=== PATIENT | female | born 1975 | race Caucasian/White ===

== ENCOUNTER 2016-09-26 22:13 | Emergency (ER) | payer BC ==
[~2016-09-26] VITALS: Ht 165.1 cm; Wt 117.9 kg
[~2016-09-26 22:13] MED LIST: OMEP20CA12 PO; ONDA-42 SL
[2016-09-26] MEDS ORDERED: NS IV 1000 ML 1,000 ML IV SCH (22:45)
[2016-09-26] MEDS ORDERED: PROCHLORPERAZINE 10 MG/2ML INJ (COMPAZINE) IV ONE (22:45)
[2016-09-26] MEDS ORDERED: KETOROLAC 30 MG/ML VIAL IVP ONE (22:45)
[2016-09-26] MEDS ORDERED: diphenhydrAMINE 50 MG/ML INJ (BENADRYL) IVP ONE (22:45)
--- NOTE | 2016-09-26 22:48 | ED Headache ---
General Chief Complaint: Head/Cervical Problems Stated Complaint: MIGRANE, N/V, DIZZINESS Source: patient Exam Limitations: no limitations (SUJIT LARIOS APRN) History of Present Illness Time seen by provider: 22:45 Initial Comments To ER with a right frontal and temporal headache that began slowly at about 1 p.m. this afternoon and progressively got worse throughout the day. The headache is worsened by exposure to light or loud noises. No history of migraines. No fevers chills or head trauma. She has associated nausea and vomiting and she's vomited about 4 times today. She is also had diarrhea about 4 times today which is watery and without blood or mucus. She denies any recent travel history or eating new or unusual foods. She has recently been alternating between Lyrica and gabapentin to find the best medication to control her fibromyalgia. She recently stopped the Lyrica due to the swelling that it caused, still has some swelling in her hands & feet. Primary care is [facility] Timing/Duration: waxing and waning Severity/Quality: moderate Location: frontal, temporal Prior Headaches/Recent Trauma: no recent headache/trauma Modifying Factors: worse with exposure to light, worse with medication, worse with movement Associated Symptoms: No confusion, No fatigue, No facial pain, No fever/chills , nausea/vomiting, No seizures, No sinus infection, No stiff neck, No vision changes (SUJIT LARIOS APRN) Allergies and Home Medications Allergies Coded Allergies: Penicillins (Unverified Allergy, Unknown, 04/11/14) clindamycin (Unverified Allergy, Unknown, 04/11/14) sulfamethoxazole (Unverified Allergy, Unknown, 09/26/16) tramadol (Unverified Allergy, Unknown, 09/26/16) trimethoprim (Unverified Allergy, Unknown, 09/26/16) Home Medications Duloxetine HCl 60 Mg Capsule.dr, 60 MG PO DAILY, (Reported) Hydrocodone/Ibuprofen 1 Each Tablet, 1 TAB PO PRN, #84 (Reported) Meloxicam 7.5 Mg Tablet, 7.5 MG PO BID, #60 (Reported) Prednisone 20 Mg Tab, PO UD, #18 (Reported) Pregabalin 75 Mg Capsule, 75 MG PO BID, (Reported) Constitutional: see HPI, chills, No fever Eyes: See HPI, Photophobia Ears, Nose, Mouth, Throat: no symptoms reported Respiratory: no symptoms reported Cardiovascular: no symptoms reported Genitourinary: no symptoms reported Musculoskeletal: no symptoms reported Skin: no symptoms reported Psychiatric/Neurological: No Symptoms Reported (SUJIT LARIOS APRN) Past Nslbhxs-Kjdbld-Xtsimr Hx Patient Social History Alcohol Use: Denies Use Recreational Drug Use: No Smoking Status: Never a Smoker Recent Foreign Travel: No Contact w/Someone Who Travel: No Recent Hopitalizations: No (SUJIT LARIOS APRN) Seasonal Allergies Seasonal Allergies: No (SUJIT LARIOS APRN) Surgeries HX Surgeries: Yes (GANGLION CYST REMOVAL IN HAND) Surgeries: Section (SUJIT LARIOS APRN) Respiratory Hx Respiratory Disorders: No (SUJIT LARIOS APRN) Cardiovascular Hx Cardiac Disorders: No (SUJIT LARIOS APRN) Neurological Hx Neurological Disorders: No (SUJIT LARIOS APRN) Reproductive System Hx Reproductive Disorders: No (SUJIT LARIOS APRN) Genitourinary Hx Genitourinary Disorders: No (SUJIT LARIOS APRN) Gastrointestinal Hx Gastrointestinal Disorders: No (SUJIT LARIOS APRN) Musculoskeletal Hx Musculoskeletal Disorders: Yes Musculoskeletal Disorders: Fibromyalgia (SUJIT LARIOS APRN) Endocrine Hx Endocrine Disorders: No (SUJIT LARIOS APRN) HEENT HX ENT Disorders: No (SUJIT LARIOS APRN) Cancer Hx Cancer: No (SUJIT LARIOS APRN) Psychosocial Hx Psychiatric Problems: No (SUJIT LARIOS APRN) Integumentary HX Skin/Integumentary Disorder: No (SUJIT LARIOS APRN) Blood Transfusions Hx Blood Disorders: No Adverse Reaction to a Blood Tr: No (SUJIT LARIOS APRN) Physical Exam Vital Signs Vital Sign - Last 12Hours 09/26/16 22:43 Temp 98.7 Pulse 68 Resp 18 B/P (MAP) 124/74 Pulse Ox 96 O2 Delivery Room Air (JASVIR AMADOR MD) Vital Signs Capillary Refill : (SUJIT LARIOS APRN) General Appearance: WD/WN, no apparent distress HEENT: PERRL/EOMI, normal ENT inspection, TMs normal Neck: non-tender, full range of motion Cardiovascular: regular rate, rhythm, no murmur Respiratory: normal breath sounds, no respiratory distress, no accessory muscle use Gastrointestinal: normal bowel sounds, non tender, soft Extremities: normal range of motion, non-tender Psychiatric: alert, oriented x 3 Crainal Nerves: normal hearing, normal speech, PERRL Skin: normal color, warm/dry (SUJTI LARIOS APRN) Motor/Sensory: no motor deficit, no sensory deficit (JASVIR AMADOR MD) Progress/Results/Core Measures Results/Orders Lab Results Laboratory Tests Test 09/26/16 22:57 Range/Units White Blood Count 10.6 4.3-11.0 10^3/uL Red Blood Count 4.00 L 4.35-5.85 10^6/uL Hemoglobin 13.1 11.5-16.0 G/DL Hematocrit 38 35-52 % Mean Corpuscular Volume 94 80-99 FL Mean Corpuscular Hemoglobin 33 25-34 PG Mean Corpuscular Hemoglobin Concent 35 32-36 G/DL Red Cell Distribution Width 12.3 10.0-14.5 % Platelet Count 344 130-400 10^3/uL Mean Platelet Volume 8.8 7.4-10.4 FL Neutrophils (%) (Auto) 86 H 42-75 % Lymphocytes (%) (Auto) 10 L 12-44 % Monocytes (%) (Auto) 3 0-12 % Eosinophils (%) (Auto) 0 0-10 % Basophils (%) (Auto) 0 0-10 % Neutrophils # (Auto) 9.2 H 1.8-7.8 X 10^3 Lymphocytes # (Auto) 1.1 1.0-4.0 X 10^3 Monocytes # (Auto) 0.4 0.0-1.0 X 10^3 Eosinophils # (Auto) 0.0 0.0-0.3 10^3/uL Basophils # (Auto) 0.0 0.0-0.1 10^3/uL Neutrophils % (Manual) 81 % Lymphocytes % (Manual) 9 % Monocytes % (Manual) 9 % Eosinophils % (Manual) 1 % Basophils % (Manual) 0 % Band Neutrophils 0 % Blood Morphology Comment NORMAL Urine Color YELLOW Urine Clarity SLIGHTLY CLOUDY Urine pH 8 5-9 Urine Specific [place] 1.010 L 1.016-1.022 Urine Protein NEGATIVE NEGATIVE Urine Glucose (UA) NEGATIVE NEGATIVE Urine Ketones NEGATIVE NEGATIVE Urine Nitrite NEGATIVE NEGATIVE Urine Bilirubin NEGATIVE NEGATIVE Urine Urobilinogen NORMAL NORMAL MG/DL Urine Leukocyte Esterase 3+ H NEGATIVE Urine RBC (Auto) NEGATIVE NEGATIVE Urine RBC NONE /HPF Urine WBC 0-2 /HPF Urine Squamous Epithelial Cells 25-50 H /HPF Urine Crystals PRESENT H /LPF Urine Amorphous Sediment LARGE AAKASH PHOSPHATE H /LPF Urine Bacteria TRACE /HPF Urine Casts NONE /LPF Urine Mucus NEGATIVE /LPF Urine Culture Indicated NO Sodium Level 140 135-145 MMOL/L Potassium Level 4.1 3.6-5.0 MMOL/L Chloride Level 104 98-107 MMOL/L Carbon Dioxide Level 25 21-32 MMOL/L Anion Gap 11 5-14 MMOL/L Blood Urea Nitrogen 19 H 7-18 MG/DL Creatinine 0.85 0.60-1.30 MG/DL Estimat Glomerular Filtration Rate > 60 BUN/Creatinine Ratio 22 Glucose Level 114 H 70-105 MG/DL Calcium Level 10.1 8.5-10.1 MG/DL Total Bilirubin 0.4 0.1-1.0 MG/DL Aspartate Amino Transf (AST/SGOT) 29 5-34 U/L Alanine Aminotransferase (ALT/SGPT) 31 0-55 U/L Alkaline Phosphatase 65 40-136 U/L Total Protein 7.2 6.4-8.2 G/DL Albumin 4.3 3.2-4.5 G/DL (JASVIR AMADOR MD) Medications Given in ED Current Medications Medications Dose Ordered Sig/Ana María Route Start Time Stop Time Status Last Admin Dose Admin Diphenhydramine HCl 25 mg ONCE ONCE IVP 09/26/16 22:45 09/26/16 22:46 DC 09/26/16 23:00 25 MG Ketorolac Tromethamine 30 mg ONCE ONCE IVP 09/26/16 22:45 09/26/16 22:46 DC 09/26/16 22:59 30 MG Prochlorperazine Edisylate 5 mg ONCE ONCE IV 09/26/16 22:45 09/26/16 22:46 DC 09/26/16 23:02 5 MG (JASVIR AMADOR MD) Vital Signs/I&O Vital Sign - Last 12Hours 09/26/16 22:43 Temp 98.7 Pulse 68 Resp 18 B/P (MAP) 124/74 Pulse Ox 96 O2 Delivery Room Air (JASVIR AMADOR MD) Progress Note : Progress Note 2300: The same. The patient pending labs and patient improvement. 0100: Patient much improved and states that she feels like she can go home and sleep without any problems. She will follow-up with her DrCornelia for further evaluation as needed. Patient does deny any recent illnesses or fevers as well as any recent injuries. Does occasionally have headaches. Discussed options of CT scan and patient declined at this point. Discharged home with return precautions. Patient verbalize understanding instructions and agreement with plan. (JASVIR AMADOR MD) Departure Impression Impression: Primary Impression: Migraine Qualified Codes: G43.909 - Migraine, unspecified, not intractable, without status migrainosus Disposition: HOME, SELF-CARE Condition: Improved Departure-Patient Inst. Decision time for Depature: 01:08 (JASVIR AMADOR MD) Referrals: [facility] (PCP[facility]Family) Primary Care Physician Patient Instructions: Migraine Headache (DC) Add. Discharge Instructions: All discharge instructions reviewed with patient and/or family. Voiced understanding. You may take ibuprofen or Tylenol as needed for pain. Drink plenty of fluids. Follow-up with your doctor on Thursday for recheck and further evaluation. Return for worse pain, fever, vomiting, weakness, breathing problems, vision or balance problems or other concerns as needed. SUJIT LARIOS APRN Sep 26, 2016 22:48 JASVIR AMADOR MD Sep 27, 2016 01:06
[2016-09-26] MEDS ORDERED: PREG75CA PO (22:49)
[2016-09-26] MEDS ORDERED: HYDR-87 PO (22:49)
[2016-09-26] MEDS ORDERED: PRD20T PO (22:49)
[2016-09-26] MEDS ORDERED: DULO60CA6 PO (22:49)
[2016-09-26] MEDS ORDERED: MELO7.5T46 PO (22:49)
[2016-09-26 23:10] LABS: BASOPHILS % (AUTO) 0 % (0-10); EOSINOPHILS % (AUTO) 0 % (0-10); LYMPHOCYTES # (AUTO) 1.1 X 10^3 (1.0-4.0); LYMPHOCYTES % (AUTO) 10 % (12-44); MEAN CORPUSCULAR HEMOGLOBIN 33 PG (25-34); MEAN CORPUSCULAR HGB CONC 35 G/DL (32-36); MEAN CORPUSCULAR VOLUME 94 FL (80-99); MEAN PLATELET VOLUME 8.8 FL (7.4-10.4); MONOCYTES # (AUTO) 0.4 X 10^3 (0.0-1.0); MONOCYTES % (AUTO) 3 % (0-12); NEUTROPHILS # (AUTO) 9.2 X 10^3 (1.8-7.8); NEUTROPHILS % (AUTO) 86 % (42-75); PLATELET COUNT 344 10^3/uL (130-400); RED CELL DISTRIBUTION WIDTH 12.3 % (10.0-14.5); WHITE BLOOD COUNT 10.6 10^3/uL (4.3-11.0)
[2016-09-26 23:11] LABS: BILIRUBIN,URINE NEGATIVE (NEGATIVE); KETONES,URINE NEGATIVE (NEGATIVE); LEUKOCYTE ESTERASE ,URINE 3+ (NEGATIVE); NITRITE,URINE NEGATIVE (NEGATIVE); PH,URINE 8 (5-9); PROTEIN,URINE NEGATIVE (NEGATIVE); UROBILINOGEN,URINE NORMAL (NORMAL)
[2016-09-26 23:24] LABS: SQUAMOUS EPITHELIAL CELL,UR 25-50 /HPF; WBC,URINE 0-2 /HPF
[2016-09-26 23:27] LABS: BAND NEUTROPHILS 0 %; BASOPHILS % (MANUAL) 0 %; EOSINOPHILS % (MANUAL) 1 %; LYMPHOCYTES % (MANUAL) 9 %; NEUTROPHILS % (MANUAL) 81 %
[2016-09-26 23:33] LABS: ALANINE AMINOTRANSFERASE 31 U/L (0-55); ALBUMIN 4.3 G/DL (3.2-4.5); ANION GAP 11 MMOL/L (5-14); ASPARTATE AMINO TRANSFERASE 29 U/L (5-34); BILIRUBIN,TOTAL 0.4 MG/DL (0.1-1.0); BLOOD UREA NITROGEN 19 MG/DL (7-18); BUN/CREATININE RATIO 22; CALCIUM 10.1 MG/DL (8.5-10.1); CARBON DIOXIDE 25 MMOL/L (21-32); CHLORIDE 104 MMOL/L (98-107); CREATININE SERUM 0.85 MG/DL (0.60-1.30); GFR ESTIMATED > 60; GLUCOSE 114 MG/DL (70-105); POTASSIUM 4.1 MMOL/L (3.6-5.0); SODIUM 140 MMOL/L (135-145); TOTAL PROTEIN 7.2 G/DL (6.4-8.2)
[2016-09-27 01:21] VITALS: BP 122/72
== END 2016-09-27 01:21 | disposition home or self-care (01) ==
LOC: EDUNIT# 22:13 → ER 22:16
DX: G43.909 Migraine, unspecified, not intractable, without status migrainosus (principal); M79.7 Fibromyalgia; Z79.899 Other long term (current) drug therapy; R11.2 Nausea with vomiting, unspecified; R19.7 Diarrhea, unspecified
CPT/HCPCS: 36415; 80053; 81000; 84703; 85007; 85027; 96361; 96374; 96375

== ENCOUNTER 2017-07-03 08:12 | Emergency (ER) | payer SELFPAY ==
[~2017-07-03] VITALS: Ht 165.1 cm; Wt 127.0 kg
[~2017-07-03 08:12] MED LIST changes: +DULO60CA6 PO; +HYDR-87 PO; +MELO7.5T46 PO; +PRD20T PO; +PREG75CA PO
--- OUTSIDE RECORDS SUMMARY | 2017-07-03 08:18 | XMS REPORT ---
Author Author VAN MARY Organization [facility] Address [address] [place] [address] Care Team Providers Care Gardener Florist Name Role Phone MARY ARAUJO Unavailable PROBLEMS Type Condition ICD9-CM Code [id number] Code Onset Dates Condition Status SNOMED Code Problem Chronic pain syndrome G89.4 Active 641111421 Problem Insomnia G47.00 Active 244768748 Problem Fibromyalgia M79.7 Active 41137678 Problem Obesity E66.9 Active 287090738 Problem Personal history of alcoholism F10.21 Active 734326545 ALLERGIES Substance Reaction Event Type Date Status Penicillin V Potassium Unknown Drug Allergy Jun, Active Clindamycin Unknown Drug Allergy Jun, Active SOCIAL HISTORY No smoking Hx information available PLAN OF CARE Activity Details Follow Up 3 Months, prn Reason:fibro VITAL SIGNS Height 64 in 2016-07-15 Weight 258.6 lbs 2016-07-15 Temperature 98.3 degrees Fahrenheit 2016-07-15 Heart Rate 74 bpm 2016-07-15 Respiratory Rate 24 2016-07-15 BMI 44.38 kg/m2 2016-07-15 Blood pressure systolic 108 mmHg 2016-07-15 Blood pressure diastolic 78 mmHg 2016-07-15 MEDICATIONS Medication Instructions Dosage Frequency Start Date End Date Duration Status Gabapentin 300 MG Orally Three times a day 1 capsule 8h Jun, 30 day(s) Active Cymbalta 30 MG Orally Once a day 1 capsule 24h Active Mobic 7.5 MG Orally 2 times a day 1 tablet 12h May, Active Ambien 10 mg Orally Once a day 1 tablet at bedtime as needed 24h May, Active Hydrocodone-Ibuprofen 7.5-200 MG Orally 3 times a day 1 tablet as needed 8h Jun, Active RESULTS No Results PROCEDURES Procedure Date Ordered Related Diagnosis Body Site Office Visit, Est Pt., Level 4 Jul 15, 2016 IMMUNIZATIONS No Known Immunizations
--- OUTSIDE RECORDS SUMMARY | 2017-07-03 08:19 | XMS REPORT ---
Author Author MARY ARAUJO Organization [facility] Address [address] [place] [address] Care Team Providers Care Senior Cyber Intelligence Analyst Name Role Phone AUSTEN ARAUJONETTE Unavailable PROBLEMS Type Condition ICD9-CM Code [id number] Code Onset Dates Condition Status SNOMED Code Problem Chronic pain syndrome G89.4 Active 659273640 Problem Insomnia G47.00 Active 429161191 Problem Fibromyalgia M79.7 Active 23451846 Problem Obesity E66.9 Active 494021312 Problem Personal history of alcoholism F10.21 Active 514976404 ALLERGIES Substance Reaction Event Type Date Status Tramadol HCl rash Drug Allergy Aug, Active Penicillin V Potassium Unknown Drug Allergy Aug, Active Clindamycin Unknown Drug Allergy Aug, Active SOCIAL HISTORY Never Assessed PLAN OF CARE Activity Details Follow Up 3 Months Reason:fibromaylgia VITAL SIGNS Height 64 in 2016-09-05 Weight 258.4 lbs 2016-09-05 Temperature 98.1 degrees Fahrenheit 2016-09-05 Heart Rate 76 bpm 2016-09-05 Respiratory Rate 20 2016-09-05 BMI 44.35 kg/m2 2016-09-05 Blood pressure systolic 130 mmHg 2016-09-05 Blood pressure diastolic 90 mmHg 2016-09-05 MEDICATIONS Medication Instructions Dosage Frequency Start Date End Date Duration Status Hydrocodone-Ibuprofen 7.5-200 MG Orally 3 times a day 1 tablet as needed 8h Aug, Active Mobic 7.5 MG Orally 2 times a day 1 TABLET 2 TIMES A DAY ORALLY 12h May, 90 days Active Lyrica 75 MG Orally 2 times a day TAKE ONE CAPSULE BY MOUTH TWICE DAILY 12h 90 days Active Ambien 10 mg Orally Once a day 1 tablet at bedtime as needed 24h May, 90 days Active Duloxetine HCl 60 mg Orally Once a day 1 capsule 24h Aug, 90 days Active RESULTS Name Result Date Reference Range TSH 2016-09-05 TSH 1.870 0.450-4.500 CBC 2016-09-05 WBC 8.1 3.4-10.8 RBC 3.90 3.77-5.28 Hemoglobin 12.8 11.1-15.9 Hematocrit 37.5 34.0-46.6 MCV 96 79-97 MCH 32.8 26.6-33.0 MCHC 34.1 31.5-35.7 RDW 13.5 12.3-15.4 Platelets 337 150-379 Neutrophils 59 Lymphs 29 Monocytes 5 Eos 7 Basos 0 Neutrophils (Absolute) 4.9 1.4-7.0 Lymphs (Absolute) 2.3 0.7-3.1 Monocytes(Absolute) 0.4 0.1-0.9 Eos (Absolute) 0.6 0.0-0.4 Baso (Absolute) 0.0 0.0-0.2 Immature Granulocytes 0 Immature Grans (Abs) 0.0 0.0-0.1 LIPID PANEL 2016-09-05 Cholesterol, Total 208 100-199 Triglycerides 117 0-149 HDL Cholesterol 61 >39 VLDL Cholesterol Jassi 23 5-40 LDL Cholesterol Calc 124 0-99 CMP 2016-09-05 Glucose, Serum 93 65-99 BUN 19 6-20 Creatinine, Serum 0.92 0.57-1.00 eGFR If NonAfricn Am 79 >59 eGFR If Africn Am 91 >59 BUN/Creatinine Ratio 21 8-20 Sodium, Serum 139 134-144 Potassium, Serum 4.2 3.5-5.2 Chloride, Serum 100 96-106 Carbon Dioxide, Total 24 18-29 Calcium, Serum 9.7 8.7-10.2 Protein, Total, Serum 6.8 6.0-8.5 Albumin, Serum 4.2 3.5-5.5 Globulin, Total 2.6 1.5-4.5 A/G Ratio 1.6 1.2-2.2 Bilirubin, Total 0.3 0.0-1.2 Alkaline Phosphatase, S 60 39-117 AST (SGOT) 11 0-40 ALT (SGPT) 13 0-32 PROCEDURES Procedure Date Ordered Result Body Site COMPLETE CBC W/AUTO DIFF WBC September 05, 2016 COMPREHEN METABOLIC PANEL September 05, 2016 ASSAY THYROID STIM HORMONE September 05, 2016 LIPID PANEL September 05, 2016 VENIPUNCT, ROUTINE* September 05, 2016 IMMUNIZATIONS No Known Immunizations MEDICAL (GENERAL) HISTORY Type Description Date Medical History fibromyalgia Medical History insomnia Medical History obesity Surgical History ganglion cyst removal 1996 Surgical History section 2004 Hospitalization History surgeries
--- OUTSIDE RECORDS SUMMARY | 2017-07-03 08:19 | XMS REPORT ---
Author Author MARY ARAUJO Organization [facility] Address [address] [place] [address] Care Team Providers Care Funeral Director And Embalmer Name Role Phone MARY ARAUJO Unavailable PROBLEMS Type Condition ICD9-CM Code [id number] Code Onset Dates Condition Status SNOMED Code Problem Chronic pain syndrome G89.4 Active 312154690 Problem Insomnia G47.00 Active 725029354 Problem Fibromyalgia M79.7 Active 24750446 Problem Obesity E66.9 Active 440955935 Problem Personal history of alcoholism F10.21 Active 076862482 ALLERGIES No Known Allergies SOCIAL HISTORY No smoking Hx information available PLAN OF CARE VITAL SIGNS MEDICATIONS No Known Medications RESULTS Name Result Date Reference Range AMERITOX 2016-06-24 PROCEDURES Procedure Date Ordered Related Diagnosis Body Site No Charge Jun 24, 2016 IMMUNIZATIONS No Known Immunizations
--- OUTSIDE RECORDS SUMMARY | 2017-07-03 08:19 | XMS REPORT ---
Author Author MARY ARAUJO Organization [facility] Address [address] [place] [address] Care Team Providers Care Tile Layer Supervisor Name Role Phone AUSTEN ARAUJONETTE Unavailable PROBLEMS Type Condition ICD9-CM Code QDL85-JH Code Onset Dates Condition Status SNOMED Code Problem Chronic pain syndrome G89.4 Active 666626252 Problem Insomnia G47.00 Active 688164103 Problem Fibromyalgia M79.7 Active 76652294 Problem Obesity E66.9 Active 890489771 Problem Personal history of alcoholism F10.21 Active 221579712 ALLERGIES No Information SOCIAL HISTORY Never Assessed PLAN OF CARE VITAL SIGNS MEDICATIONS Unknown Medications RESULTS Name Result Date Reference Range CBC 2016-07-28 WBC 6.4 3.4-10.8 RBC 3.92 3.77-5.28 Hemoglobin 12.5 11.1-15.9 Hematocrit 36.7 34.0-46.6 MCV 94 79-97 MCH 31.9 26.6-33.0 MCHC 34.1 31.5-35.7 RDW 13.2 12.3-15.4 Platelets 289 150-379 Neutrophils 47 Lymphs 35 Monocytes 6 Eos 12 Basos 0 Neutrophils (Absolute) 3.0 1.4-7.0 Lymphs (Absolute) 2.2 0.7-3.1 Monocytes(Absolute) 0.4 0.1-0.9 Eos (Absolute) 0.8 0.0-0.4 Baso (Absolute) 0.0 0.0-0.2 Immature Granulocytes 0 Immature Grans (Abs) 0.0 0.0-0.1 LIPID PANEL 2016-07-28 Cholesterol, Total 221 100-199 Triglycerides 145 0-149 HDL Cholesterol 51 >39 VLDL Cholesterol Jassi 29 5-40 LDL Cholesterol Calc 141 0-99 CMP 2016-07-28 Glucose, Serum 102 65-99 BUN 16 6-20 Creatinine, Serum 0.83 0.57-1.00 eGFR If NonAfricn Am 90 >59 eGFR If Africn Am 103 >59 BUN/Creatinine Ratio 19 8-20 Sodium, Serum 142 134-144 Potassium, Serum 4.6 3.5-5.2 Chloride, Serum 101 96-106 Carbon Dioxide, Total 24 18-29 Calcium, Serum 9.3 8.7-10.2 Protein, Total, Serum 6.4 6.0-8.5 Albumin, Serum 4.0 3.5-5.5 Globulin, Total 2.4 1.5-4.5 A/G Ratio 1.7 1.1-2.5 Bilirubin, Total 0.3 0.0-1.2 Alkaline Phosphatase, S 65 39-117 AST (SGOT) 15 0-40 ALT (SGPT) 16 0-32 PROCEDURES Procedure Date Ordered Result Body Site COMPLETE CBC W/AUTO DIFF WBC Jul 28, 2016 LIPID PANEL Jul 28, 2016 VENIPUNCT, ROUTINE* Jul 28, 2016 COMPREHEN METABOLIC PANEL Jul 28, 2016 IMMUNIZATIONS No Known Immunizations MEDICAL (GENERAL) HISTORY Type Description Date Medical History fibromyalgia Medical History insomnia Medical History obesity Surgical History ganglion cyst removal 1996 Surgical History section 2004 Hospitalization History surgeries
--- OUTSIDE RECORDS SUMMARY | 2017-07-03 08:19 | XMS REPORT ---
Author Author MARY ARAUJO Organization [facility] Address [address] [place] [address] Care Team Providers Care Forklift Mechanic Name Role Phone MARY ARAUJO Unavailable PROBLEMS Type Condition ICD9-CM Code [id number] Code Onset Dates Condition Status SNOMED Code Problem Chronic pain syndrome G89.4 Active 908862856 Problem Insomnia G47.00 Active 990986987 Problem Fibromyalgia M79.7 Active 10672242 Problem Obesity E66.9 Active 988354559 Problem Personal history of alcoholism F10.21 Active 061495524 ALLERGIES No Information SOCIAL HISTORY Never Assessed PLAN OF CARE VITAL SIGNS MEDICATIONS Medication Instructions Dosage Frequency Start Date End Date Duration Status Hydrocodone-Ibuprofen 7.5-200 MG Orally 3 times a day 1 tablet as needed 8h October, 28 days Active RESULTS No Results PROCEDURES No Known procedures IMMUNIZATIONS No Known Immunizations MEDICAL (GENERAL) HISTORY Type Description Date Medical History fibromyalgia Medical History insomnia Medical History obesity Surgical History ganglion cyst removal 1996 Surgical History section 2004 Hospitalization History surgeries
--- OUTSIDE RECORDS SUMMARY | 2017-07-03 08:19 | XMS REPORT ---
Author Author MARY ARAUJO Organization [facility] Address [address] [place] [address] Care Team Providers Care Architectural Draftsman Name Role Phone MARY ARAUJO Unavailable PROBLEMS Type Condition ICD9-CM Code RZZ33-JP Code Onset Dates Condition Status SNOMED Code Problem Chronic pain syndrome G89.4 Active 479483613 Problem Insomnia G47.00 Active 489041178 Problem Fibromyalgia M79.7 Active 93326949 Problem Obesity E66.9 Active 071187730 Problem Personal history of alcoholism F10.21 Active 936245040 ALLERGIES No Information SOCIAL HISTORY Never Assessed [...]
--- OUTSIDE RECORDS SUMMARY | 2017-07-03 08:20 | XMS REPORT ---
Author Author MARY ARAUJO Organization [facility] Address [address] [place] [address] Care Team Providers Care Ultrasound Tech Name Role Phone MARY ARAUJO Unavailable PROBLEMS Type Condition ICD9-CM Code SCA77-FD Code Onset Dates Condition Status SNOMED Code Problem Chronic pain syndrome G89.4 Active 845501012 Problem Insomnia G47.00 Active 179605854 Problem Fibromyalgia M79.7 Active 65739616 Problem Obesity E66.9 Active 719485539 Problem Personal history of alcoholism F10.21 Active 699875724 ALLERGIES No Information SOCIAL HISTORY Never Assessed PLAN OF CARE VITAL SIGNS MEDICATIONS Medication Instructions Dosage Frequency Start Date End Date Duration Status Duloxetine HCl 60 mg Orally Once a day 1 capsule 24h Aug, 30 day(s) Active Hydrocodone-Ibuprofen 7.5-200 MG Orally 3 times a day 1 tablet as needed 8h Aug, Active RESULTS No Results PROCEDURES No Known procedures IMMUNIZATIONS No Known Immunizations MEDICAL (GENERAL) HISTORY Type Description Date Medical History fibromyalgia Medical History insomnia Medical History obesity Surgical History ganglion cyst removal 1996 Surgical History section 2003 Hospitalization History surgeries
--- OUTSIDE RECORDS SUMMARY | 2017-07-03 08:20 | XMS REPORT ---
Author Author MARY ARAUJO [facility] Address [address] [place] [address] Care Team Providers Care Microbiological Laboratory Technician Name Role Phone MARY ARAUJO Unavailable PROBLEMS Type Condition ICD9-CM Code EGJ62-OH Code Onset Dates Condition Status SNOMED Code Problem Chronic pain syndrome G89.4 Active 619341035 Problem Insomnia G47.00 Active 815315877 Problem Fibromyalgia M79.7 Active 59372746 Problem Obesity E66.9 Active 184014253 Problem Personal history of alcoholism F10.21 Active 169057390 ALLERGIES No Known Allergies SOCIAL HISTORY No smoking Hx information available PLAN OF CARE VITAL SIGNS MEDICATIONS No Known Medications RESULTS No Results PROCEDURES No Known procedures IMMUNIZATIONS No Known Immunizations
--- OUTSIDE RECORDS SUMMARY | 2017-07-03 08:20 | XMS REPORT ---
Author Author MARY ARAUJO [facility] Address [address] [place] [address] Care Team Providers Care Green End Man Name Role Phone MARY ARAUJO Unavailable PROBLEMS Type Condition ICD9-CM Code QDS29-KE Code Onset Dates Condition Status SNOMED Code Problem Chronic pain syndrome G89.4 Active 423751701 Problem Insomnia G47.00 Active 331968858 Problem Fibromyalgia M79.7 Active 93611621 Problem Obesity E66.9 Active 340017658 Problem Personal history of alcoholism F10.21 Active 173863353 ALLERGIES No Information SOCIAL HISTORY Never Assessed PLAN OF CARE VITAL SIGNS MEDICATIONS Unknown Medications RESULTS No Results PROCEDURES No Known procedures IMMUNIZATIONS No Known Immunizations MEDICAL (GENERAL) HISTORY Type Description Date Medical History fibromyalgia Medical History insomnia Medical History obesity Surgical History ganglion cyst removal 1996 Surgical History section 2004 Hospitalization History surgeries
--- OUTSIDE RECORDS SUMMARY | 2017-07-03 08:20 | XMS REPORT ---
Author Author MARY ARAUJO Organization [facility] Address [address] [place] [address] Care Team Providers Care Summer Intern Name Role Phone MARY ARAUJO Unavailable PROBLEMS Type Condition ICD9-CM Code DZS27-LG Code Onset Dates Condition Status SNOMED Code Problem Chronic pain syndrome G89.4 Active 758499259 Problem Insomnia G47.00 Active 539243088 Problem Personal history of alcoholism F10.21 Active 678379030 Problem Obesity E66.9 Active 946548592 Problem Fibromyalgia M79.7 Active 61808486 ALLERGIES Unknown Allergies SOCIAL HISTORY No smoking Hx information available PLAN OF CARE VITAL SIGNS MEDICATIONS Medication Instructions Dosage Frequency Start Date End Date Duration Status Hydrocodone-Ibuprofen 7.5-200 MG Orally 3 times a day 1 tablet as needed 8h May, Active RESULTS No Results PROCEDURES No Known procedures IMMUNIZATIONS No Known Immunizations
--- OUTSIDE RECORDS SUMMARY | 2017-07-03 08:20 | XMS REPORT ---
Author Author MARY ARAUJO Organization [facility] Address [address] [place] [address] Care Team Providers Care Embedded Software Architect Name Role Phone MARY ARAUJO Unavailable PROBLEMS Type Condition ICD9-CM Code GWD62-DF Code Onset Dates Condition Status SNOMED Code Problem Chronic pain syndrome G89.4 Active 444229657 Problem Insomnia G47.00 Active 774489954 Problem Fibromyalgia M79.7 Active 16403603 Problem Obesity E66.9 Active 900044385 Problem Personal history of alcoholism F10.21 Active 579552487 ALLERGIES No Known Allergies SOCIAL HISTORY No smoking Hx information available PLAN OF CARE VITAL SIGNS MEDICATIONS Medication Instructions Dosage Frequency Start Date End Date Duration Status Hydrocodone-Ibuprofen 7.5-200 MG Orally 3 times a day 1 tablet as needed 8h Jun, Active RESULTS No Results PROCEDURES No Known procedures IMMUNIZATIONS No Known Immunizations
--- OUTSIDE RECORDS SUMMARY | 2017-07-03 08:21 | XMS REPORT | Continuity of Care Document ---
Author Author Pending Sale To [facility] Address Unknown Phone Unavailable Allergies Active Description Code Type Severity Reaction Onset Reported/Identified Relationship to Patient Clinical Status Yes clindamycin Drug Allergy N/A N/A 07/15/2013 Yes Penicillin V Drug Allergy N/ A N/A 07/15/2013 Yes clindamycin [id number] Drug Allergy Unknown N/A 04/11/2014 Yes Penicillins [id number] Drug Allergy Unknown N/A 04/11/2014 Yes sulfamethoxazole [id number] Drug Allergy Unknown N/A 09/26/2016 Yes tramadol [id number] Drug Allergy Unknown N/A 09/26/2016 Yes trimethoprim [id number] Drug Allergy Unknown N/A 09/26/2016 Medications There is no data. Problems Date Dx Coded Attending Type Code Diagnosis Diagnosed By 03/23/2008 HENRI THAPA APRN R 465.9 UPPER RESPIRATORY INFECTION 03/23/2008 HENRI THAPA APRN R 465.9 UPPER RESPIRATORY INFECTION 03/23/2008 JESSA ALFONSO APRN A 465.9 UPPER RESPIRATORY INFECTION 03/23/2008 HENRI THAPA APRN R 465.9 UPPER RESPIRATORY INFECTION 03/23/2008 HENRI THAPA APRN R 465.9 UPPER RESPIRATORY INFECTION 03/23/2008 VANESSA ALFONSO APRNIDI A 465.9 UPPER RESPIRATORY INFECTION 03/23/2008 KADEN REDDING JESSA A 465.9 UPPER RESPIRATORY INFECTION 03/23/2008 JUANCARLOS THAPA APRNINA R 465.9 UPPER RESPIRATORY INFECTION 03/23/2008 HENRI THAPA APRN R 465.9 UPPER RESPIRATORY INFECTION 05/19/2008 HENRI THAPA APRN R 682.9 CELLULITIS AND ABSCESS OF UNSPECIFIED SITES 05/19/2008 HENRI THAPA APRN R 698.9 PRURITUS NOS 05/19/2008 HENRI THAPA APRN R 782.1 RASH 05/19/2008 HENRI THAPA APRN R 919.4 INSECT BITE NONVENOMOUS OF OTHER MULTIPLE AND UNSPECIFIED SITES WITHOUT INFECTION 05/19/2008 ALANIS DESIGN CONSULTANT, HENRI R 682.9 CELLULITIS AND ABSCESS OF UNSPECIFIED SITES 05/19/2008 ALAINS DESIGN CONSULTANT, HENRI R 698.9 PRURITUS NOS 05/19/2008 ALANIS DESIGN CONSULTANT, HENRI R 782.1 RASH 05/19/2008 ALANIS DESIGN CONSULTANT, HENRI R 919.4 INSECT BITE NONVENOMOUS OF OTHER MULTIPLE AND UNSPECIFIED SITES WITHOUT INFECTION 05/19/2008 KADEN DESIGN CONSULTANT, JESSA A 682.9 CELLULITIS AND ABSCESS OF UNSPECIFIED SITES 05/19/2008 KADEN DESIGN CONSULTANT, JESSA A 698.9 PRURITUS NOS 05/19/2008 KADEN DESIGN CONSULTANT, JESSA A 782.1 RASH 05/19/2008 KADEN DESIGN CONSULTANT, JESSA A 919.4 INSECT BITE NONVENOMOUS OF OTHER MULTIPLE AND UNSPECIFIED SITES WITHOUT INFECTION 05/19/2008 ALANIS DESIGN CONSULTANT, HENRI R 682.9 CELLULITIS AND ABSCESS OF UNSPECIFIED SITES 05/19/2008 ALANIS DESIGN CONSULTANT, HENRI R 698.9 PRURITUS NOS 05/19/2008 ALANIS DESIGN CONSULTANT, HENRI R 782.1 RASH 05/19/2008 ALANIS DESIGN CONSULTANT, HENRI R 919.4 INSECT BITE NONVENOMOUS OF OTHER MULTIPLE AND UNSPECIFIED SITES WITHOUT INFECTION 05/19/2008 ALANIS DESIGN CONSULTANT, HENRI R 682.9 CELLULITIS AND ABSCESS OF UNSPECIFIED SITES 05/19/2008 ALANIS DESIGN CONSULTANT, HENRI R 698.9 PRURITUS NOS 05/19/2008 ALANIS AZEVEDON, HENRI R 782.1 RASH 05/19/2008 LAANIS DESIGN CONSULTANT, HENRI R 919.4 INSECT BITE NONVENOMOUS OF OTHER MULTIPLE AND UNSPECIFIED SITES WITHOUT INFECTION 05/19/2008 KADEN DESIGN CONSULTANT, JESSA A 682.9 CELLULITIS AND ABSCESS OF UNSPECIFIED SITES 05/19/2008 KADEN DESIGN CONSULTANT, JESSA A 698.9 PRURITUS NOS 05/19/2008 KADEN DESIGN CONSULTANT, JESSA A 782.1 RASH 05/19/2008 KADEN DESIGN CONSULTANT, JESSA A 919.4 INSECT BITE NONVENOMOUS OF OTHER MULTIPLE AND UNSPECIFIED SITES WITHOUT INFECTION 05/19/2008 KADEN AZEVEDON JESSA A 682.9 CELLULITIS AND ABSCESS OF UNSPECIFIED SITES 05/19/2008 KADEN DESIGN CONSULTANT, JESSA A 698.9 PRURITUS NOS 05/19/2008 KADEN DESIGN CONSULTANT, JESSA A 782.1 RASH 05/19/2008 KADEN DESIGN CONSULTANT, JESSA A 919.4 INSECT BITE NONVENOMOUS OF OTHER MULTIPLE AND UNSPECIFIED SITES WITHOUT INFECTION 05/19/2008 ALANIS DESIGN CONSULTANT, HENRI R 682.9 CELLULITIS AND ABSCESS OF UNSPECIFIED SITES 05/19/2008 ALANIS DESIGN CONSULTANT, HENRI R 698.9 PRURITUS NOS 05/19/2008 ALANIS DESIGN CONSULTANT, HENRI R 782.1 RASH 05/19/2008 ALANIS DESIGN CONSULTANT, HENRI R 919.4 INSECT BITE NONVENOMOUS OF OTHER MULTIPLE AND UNSPECIFIED SITES WITHOUT INFECTION 05/19/2008 ALANIS DESIGN CONSULTANT, HENRI R 682.9 CELLULITIS AND ABSCESS OF UNSPECIFIED SITES 05/19/2008 ALANIS DESIGN CONSULTANT, HENRI R 698.9 PRURITUS NOS 05/19/2008 ALANIS DESIGN CONSULTANT, HENRI R 782.1 RASH 05/19/2008 ALANIS DESIGN CONSULTANT, HENRI R 919.4 INSECT BITE NONVENOMOUS OF OTHER MULTIPLE AND UNSPECIFIED SITES WITHOUT INFECTION 05/25/2008 ALANIS DESIGN CONSULTANT, HENRI R 729.5 PAIN IN LIMB 05/25/2008 ALANIS DESIGN CONSULTANT, HENRI R 729.5 PAIN IN LIMB 05/25/2008 KADEN DESIGN CONSULTANT JESSA A 729.5 PAIN IN LIMB 05/25/2008 ALANIS DESIGN CONSULTANT, HENRI R 729.5 PAIN IN LIMB 05/25/2008 ALANIS DESIGN CONSULTANT, HENRI R 729.5 PAIN IN LIMB 05/25/2008 KADEN DESIGN CONSULTANT, JESSA A 729.5 PAIN IN LIMB 05/25/2008 KADEN DESIGN CONSULTANT, JESSA A 729.5 PAIN IN LIMB 05/25/2008 ALANIS DESIGN CONSULTANT, HENRI R 729.5 PAIN IN LIMB 05/25/2008 ALANIS DESIGN CONSULTANT, HENRI R 729.5 PAIN IN LIMB 05/26/2008 ALANIS DESIGN CONSULTANT, HENRI R V58.31 WOUND DRESSING 05/26/2008 ALANIS DESIGN CONSULTANT, HENRI R V58.31 WOUND DRESSING 05/26/2008 KADEN REDDING JESSA A V58.31 WOUND DRESSING 05/26/2008 ALANIS DESIGN CONSULTANT, HENRI R V58.31 WOUND DRESSING 05/26/2008 ALANIS AZEVEDON, HENRI R V58.31 WOUND DRESSING 05/26/2008 KADEN REDDING JESSA A V58.31 WOUND DRESSING 05/26/2008 KADEN REDDING, JESSA A V58.31 WOUND DRESSING 05/26/2008 ALANIS AZEVEDON, HENRI R V58.31 WOUND DRESSING 05/26/2008 ALANIS AZEVEDON, HENRI R V58.31 WOUND DRESSING 07/15/2013 ALANIS AZEVEDON, HENRI R 783.1 ABNORMAL WEIGHT GAIN 07/15/2013 ALANIS AZEVEDON, HENRI R V11.3 PERSONAL HISTORY OF ALCOHOLISM 07/15/2013 ALANIS AZEVEDON, HENRI R 783.1 ABNORMAL WEIGHT GAIN 07/15/2013 ALANIS REDDING, HENRI R V11.3 PERSONAL HISTORY OF ALCOHOLISM 07/15/2013 KADEN REDDING JESSA A 783.1 ABNORMAL WEIGHT GAIN 07/15/2013 KADEN REDDING JESSA A V11.3 PERSONAL HISTORY OF ALCOHOLISM 07/15/2013 ALANIS REDDING, HENRI R 783.1 ABNORMAL WEIGHT GAIN 07/15/2013 ALANIS REDDING, HENRI R V11.3 PERSONAL HISTORY OF ALCOHOLISM 07/15/2013 ALANIS REDDING, HENRI R 783.1 ABNORMAL WEIGHT GAIN 07/15/2013 ALANIS REDDING, HENRI R V11.3 PERSONAL HISTORY OF ALCOHOLISM 07/15/2013 KADEN REDDING JESSA A 783.1 ABNORMAL WEIGHT GAIN 07/15/2013 KADEN REDDING JESSA A V11.3 PERSONAL HISTORY OF ALCOHOLISM 07/15/2013 KADEN REDDING JESSA A 783.1 ABNORMAL WEIGHT GAIN 07/15/2013 KADEN REDDING JESSA A V11.3 PERSONAL HISTORY OF ALCOHOLISM 07/15/2013 ALANIS REDDING, HENRI R 783.1 ABNORMAL WEIGHT GAIN 07/15/2013 ALANIS REDDING, HENRI R V11.3 PERSONAL HISTORY OF ALCOHOLISM 07/15/2013 ALANIS REDDING, HENRI R 783.1 ABNORMAL WEIGHT GAIN 07/15/2013 ALANIS REDDING, HENRI R V11.3 PERSONAL HISTORY OF ALCOHOLISM 08/03/2013 ALANIS REDDING, HENRI R 305.1 NONDEPENDENT TOBACCO USE DISORDER 08/03/2013 KADEN REDDING JESSA A 305.1 NONDEPENDENT TOBACCO USE DISORDER 08/03/2013 ALANIS REDDING, HENRI R 305.1 NONDEPENDENT TOBACCO USE DISORDER 08/03/2013 ALANIS AZEVEDON, HENRI R 305.1 NONDEPENDENT TOBACCO USE DISORDER 08/03/2013 KADEN DESIGN CONSULTANT, JESSA A 305.1 NONDEPENDENT TOBACCO USE DISORDER 08/03/2013 KADENRACHEL AZEVEDON, JESSA A 305.1 NONDEPENDENT TOBACCO USE DISORDER 08/03/2013 ALANIS AZEVEDON, HENRI R 305.1 NONDEPENDENT TOBACCO USE DISORDER 08/03/2013 ALANIS AZEVEDON, HENRI R 305.1 NONDEPENDENT TOBACCO USE DISORDER 10/11/2013 KADEN REDDING, JESSA A 611.72 LUMP OR MASS IN BREAST 10/11/2013 KADEN REDDING, JESSA A V72.31 INSURANCE SALES EXECUTIVE EXAM, ROUTINE 10/11/2013 KADEN REDDING JESSA A V76.10 BREAST CANCER SCREENING 10/11/2013 ALANIS REDDING, HENRI R 611.72 LUMP OR MASS IN BREAST 10/11/2013 ALANIS REDDING, HENRI R V72.31 INSURANCE SALES EXECUTIVE EXAM, ROUTINE 10/11/2013 ALANIS REDDING, HENRI R V76.10 BREAST CANCER SCREENING 10/11/2013 ALANIS REDDING, HENRI R 611.72 LUMP OR MASS IN BREAST 10/11/2013 ALANIS REDDING, HENRI R V72.31 INSURANCE SALES EXECUTIVE EXAM, ROUTINE 10/11/2013 ALANIS REDDING, HENRI R V76.10 BREAST CANCER SCREENING 10/11/2013 KADEN REDDING, JESSA A 611.72 LUMP OR MASS IN BREAST 10/11/2013 KADEN REDDING, JESSA A V72.31 INSURANCE SALES EXECUTIVE EXAM, ROUTINE 10/11/2013 KADEN REDDING JESSA A V76.10 BREAST CANCER SCREENING 10/11/2013 KADEN REDDING, JESSA A 611.72 LUMP OR MASS IN BREAST 10/11/2013 KADEN REDDING, JESSA A V72.31 INSURANCE SALES EXECUTIVE EXAM, ROUTINE 10/11/2013 KADEN REDDING, JESSA A V76.10 BREAST CANCER SCREENING 10/11/2013 ALANIS REDDING, HENRI R 611.72 LUMP OR MASS IN BREAST 10/11/2013 ALANIS REDDING, HENRI R V72.31 INSURANCE SALES EXECUTIVE EXAM, ROUTINE 10/11/2013 ALANIS REDDING, HENRI R V76.10 BREAST CANCER SCREENING 10/11/2013 ALANIS REDDING, HENRI R 611.72 LUMP OR MASS IN BREAST 10/11/2013 ALANIS REDDING, HENRI R V72.31 INSURANCE SALES EXECUTIVE EXAM, ROUTINE 10/11/2013 ALANIS REDDING HENRI R V76.10 BREAST CANCER SCREENING 02/23/2014 ALANIS REDDING, HENRI R 625.3 DYSMENORRHEA 02/23/2014 KADEN APRN, JESSA A 625.3 DYSMENORRHEA 02/23/2014 KADEN DESIGN CONSULTANT, JESSA A 625.3 DYSMENORRHEA 02/23/2014 ALANIS REDDING, HENRI R 625.3 DYSMENORRHEA 02/23/2014 ALANIS REDDING, HENRI R 625.3 DYSMENORRHEA 04/11/2014 POLY FINCH, VIRGILIO T Ot 787.01 NAUSEA WITH VOMITING 04/11/2014 POLY FINCH, VIRGILIO T Ot 789.01 ABDOMINAL PAIN, RIGHT UPPER QUADRANT 05/18/2014 ALANIS REDDING HENRI R 780.52 INSOMNIA UNSPECIFIED 05/18/2014 ALANIS REDDING HENRI R 780.52 INSOMNIA UNSPECIFIED 08/22/2014 ALANIS REDDING HENRI R 729.1 MYALGIA AND MYOSITIS UNSPECIFIED 08/22/2014 ALANIS REDDING HENRI R 780.79 OTHER MALAISE AND FATIGUE 05/31/2015 MARY ARAUJO JET DYEING MACHINE OPERATOR Ot G47.00 06/27/2015 MARY ARAUJO JET DYEING MACHINE OPERATOR Ot G47.00 07/31/2015 MARY ARAUJO JET DYEING MACHINE OPERATOR Ot G47.00 12/10/2015 DEBORAH FINCH, JOSE JUAN Peres Ot M25.50 PAIN IN UNSPECIFIED JOINT 12/10/2015 DEBORAH FINCH, JOSE JUAN Peres Ot M79.642 PAIN IN LEFT HAND 12/11/2015 DEBORAH FINCH, JOSE JUAN Peres Ot M25.50 PAIN IN UNSPECIFIED JOINT 12/11/2015 DEBORAH FINCH, JOSE JUAN Peres Ot M79.642 PAIN IN LEFT HAND 12/11/2015 MARY ARAUJO JET DYEING MACHINE OPERATOR Ot G47.00 INSOMNIA, UNSPECIFIED 12/11/2015 DEBORAH FINCH, ALI J Ot M25.50 PAIN IN UNSPECIFIED JOINT 12/11/2015 DEBORAH FINCH, ALI J Ot M79.642 PAIN IN LEFT HAND 12/13/2015 DEBORAH FINCH, ALI J Ot M25.50 PAIN IN UNSPECIFIED JOINT 12/13/2015 DEBORAH FINCH, ALI J Ot M79.642 PAIN IN LEFT HAND 12/20/2015 DEBORAH FINCH, ALI J Ot M25.50 PAIN IN UNSPECIFIED JOINT 12/20/2015 DEBORAH FINCH, ALI J Ot M79.642 PAIN IN LEFT HAND 04/25/2016 MARY ARAUJO Ot G47.00 INSOMNIA, UNSPECIFIED 04/25/2016 DEBORAH FINCH, JOSE JUAN J Ot M25.50 PAIN IN UNSPECIFIED JOINT 04/25/2016 DEBORAH FINCH, ALI J Ot M79.642 PAIN IN LEFT HAND 04/25/2016 MARY ARAUJO Ot G47.00 INSOMNIA, UNSPECIFIED 04/25/2016 DEBORAH FINCH, ALI J Ot M25.50 PAIN IN UNSPECIFIED JOINT 04/25/2016 DEBORAH FINCH, ALI J Ot M79.642 PAIN IN LEFT HAND 09/26/2016 MARY ARAUJOP Ot G47.00 INSOMNIA, UNSPECIFIED 09/26/2016 DEBORAH FINCH, ALI J Ot M25.50 PAIN IN UNSPECIFIED JOINT 09/26/2016 DEBORAH FINCH, ALI J Ot M79.642 PAIN IN LEFT HAND 09/26/2016 MARY ARAUJO JET DYEING MACHINE OPERATOR Ot G47.00 INSOMNIA, UNSPECIFIED 09/26/2016 DEBORAH FINCH, ALI J Ot M25.50 PAIN IN UNSPECIFIED JOINT 09/26/2016 DEBORAH FINCH, ALI J Ot M79.642 PAIN IN LEFT HAND 09/27/2016 PERRY FINCH, JASVIR Causey Ot G43.909 MIGRAINE, UNSP, NOT INTRACTABLE, WITHOUT 09/27/2016 PERRY FINCH, JASVIR Causey Ot M79.7 FIBROMYALGIA 09/27/2016 PERRY FINCH, JASVIR Causey Ot R11.2 NAUSEA WITH VOMITING, UNSPECIFIED 09/27/2016 JASVIR AMADOR MD Ot R19.7 DIARRHEA, UNSPECIFIED 09/27/2016 JASVIR AMADOR MD Ot Z79.899 OTHER BURNER SHAFT (CURRENT) DRUG THERAPY 09/29/2016 JASVIR AMADOR MD Ot G43.909 MIGRAINE, UNSP, NOT INTRACTABLE, WITHOUT 09/29/2016 JASVIR AMADOR MD Ot M79.7 FIBROMYALGIA 09/29/2016 JASVIR AMADOR MD Ot R11.2 NAUSEA WITH VOMITING, UNSPECIFIED 09/29/2016 JASVIR AMADOR MD Ot R19.7 DIARRHEA, UNSPECIFIED 09/29/2016 JASVIR AMADOR MD Ot Z79.899 OTHER BURNER SHAFT (CURRENT) DRUG THERAPY 10/04/2016 JASVIR AMADOR MD Ot G43.909 MIGRAINE, UNSP, NOT INTRACTABLE, WITHOUT 10/04/2016 JASVIR AMADOR MD Ot M79.7 FIBROMYALGIA 10/04/2016 JASVIR AMADOR MD Ot R11.2 NAUSEA WITH VOMITING, UNSPECIFIED 10/04/2016 JASVIR AMADOR MD Ot R19.7 DIARRHEA, UNSPECIFIED 10/04/2016 JASVIR AMADOR MD Ot Z79.899 OTHER [facility] (CURRENT) DRUG THERAPY Procedures Code Description [place] [address] ROUTINE VENIPUNCTURE 10/14/2013 18035 CBC 10/14/2013 18306 CMP 10/14/2013 62783 LIPID PANEL 10/14/2013 4961521 GFR CALC (RESULT ONLY) 10/14/2013 76995 TSH 10/14/2013 05934 TEST, URINE (IN- HOUSE) 03/01/2014 Results Test Result Range Complete blood count (CBC) with automated white blood cell (WBC) differential - 09/26/16 22:57 Blood leukocytes automated count (number/volume) 10.6 10*3/uL 4.3-11.0 Blood erythrocytes automated count (number/volume) 4.00 10*6/uL 4.35-5.85 Venous blood hemoglobin measurement (mass/volume) 13.1 g/dL 11.5-16.0 Blood hematocrit (volume fraction) 38 % 35-52 Automated erythrocyte mean corpuscular volume 94 [foz_us] 80-99 Automated erythrocyte mean corpuscular hemoglobin (mass per erythrocyte) 33 pg 25-34 Automated erythrocyte mean corpuscular hemoglobin concentration measurement ( mass/volume) 35 g/dL 32-36 Automated erythrocyte distribution width ratio 12.3 % 10.0-14.5 Automated blood platelet count (count/volume) 344 10*3/uL 130-400 Automated blood platelet mean volume measurement 8.8 [foz_us] 7.4-10.4 Automated blood neutrophils/100 leukocytes 86 % 42-75 Automated blood lymphocytes/100 leukocytes 10 % 12-44 Blood monocytes/100 leukocytes 3 % 0-12 Automated blood eosinophils/100 leukocytes 0 % 0-10 Automated blood basophils/100 leukocytes 0 % 0-10 Blood neutrophils automated count (number/volume) 9.2 10*3 1.8-7.8 Blood lymphocytes automated count (number/volume) 1.1 10*3 1.0-4.0 Blood monocytes automated count (number/volume) 0.4 10*3 0.0-1.0 Automated eosinophil count 0.0 10*3/uL 0.0-0.3 Automated blood basophil count (count/volume) 0.0 10*3/uL 0.0-0.1 Complete urinalysis with reflex to culture - 09/26/16 22:57 Urine color determination YELLOW NRG Urine clarity determination SLIGHTLY CLOUDY NRG Urine pH measurement by test strip 8 5-9 Specific gravity of urine by test strip 1.010 1.016- 1.022 Urine protein assay by test strip, semi-quantitative NEGATIVE NEGATIVE Urine glucose detection by automated test strip NEGATIVE NEGATIVE Erythrocytes detection in urine sediment by light microscopy NEGATIVE NEGATIVE Urine ketones detection by automated test strip NEGATIVE NEGATIVE Urine nitrite detection by test strip NEGATIVE NEGATIVE Urine total bilirubin detection by test strip NEGATIVE NEGATIVE Urine urobilinogen measurement by automated test strip (mass/volume) NORMAL NORMAL Urine leukocyte esterase detection by dipstick 3+ NEGATIVE Automated urine sediment erythrocyte count by microscopy (number/high power field) NONE NRG Automated urine sediment leukocyte count by microscopy (number/high power field ) [HPF] NRG Bacteria detection in urine sediment by light microscopy TRACE NRG Squamous epithelial cells detection in urine sediment by light microscopy 25-50 NRG Crystals detection in urine sediment by light microscopy PRESENT NRG Casts detection in urine sediment by light microscopy NONE NRG Mucus detection in urine sediment by light microscopy NEGATIVE NRG Complete urinalysis with reflex to culture NO NRG Amorphous sediment detection in urine sediment by light microscopy LARGE AAKASH PHOSPHATE NRG Blood manual differential performed detection - 09/26/16 22:57 Blood monocytes/100 leukocytes 9 % NRG Manual blood segmented neutrophils/100 leukocytes 81 % NRG Blood band neutrophils/100 leukocytes 0 % NRG Manual blood lymphocytes/100 leukocytes 9 % NRG Manual eosinophils/100 leukocytes in nose 1 % NRG Manual blood basophils/100 leukocytes 0 % NRG Blood erythrocyte morphology finding identification NORMAL NRG Comprehensive metabolic panel - 09/26/16 22:57 Serum or plasma sodium measurement (moles/volume) 140 mmol/L 135-145 Serum or plasma potassium measurement (moles/volume) 4.1 mmol/L 3.6-5.0 Serum or plasma chloride measurement (moles/volume) 104 mmol/L 98-107 Carbon dioxide 25 mmol/L 21-32 Serum or plasma anion gap determination (moles/volume) 11 mmol/L 5-14 Serum or plasma urea nitrogen measurement (mass/volume) 19 mg/dL 7-18 Serum or plasma creatinine measurement (mass/volume) 0.85 mg/dL 0.60-1.30 Serum or plasma urea nitrogen/creatinine mass ratio 22 NRG Serum or plasma creatinine measurement with calculation of estimated glomerular filtration rate > NRG Serum or plasma glucose measurement (mass/volume) 114 mg/dL 70-105 Serum or plasma calcium measurement (mass/volume) 10.1 mg/dL 8.5-10.1 Serum or plasma total bilirubin measurement (mass/volume) 0.4 mg/dL 0.1-1.0 Serum or plasma alkaline phosphatase measurement (enzymatic activity/volume) 65 U/L 40-136 Serum or plasma aspartate aminotransferase measurement (enzymatic activity/ volume) 29 U/L 5-34 Serum or plasma alanine aminotransferase measurement (enzymatic activity/volume ) 31 U/L 0-55 Serum or plasma protein measurement (mass/volume) 7.2 g/dL 6.4-8.2 Serum or plasma albumin measurement (mass/volume) 4.3 g/dL 3.2-4.5 Encounters ACCT No. Visit Date/Time Discharge Status Pt. Type Provider Facility Loc./Unit Complaint [id number] 08/23/2014 08:06:00 08/23/2014 23:59:59 CLS Outpatient HENRI THAPA APRN [id number] 05/18/2014 10:31:00 05/18/2014 23:59:59 CLS Outpatient ALANIS REDDING HENRI R [id number] 03/01/2014 08:23:00 03/01/2014 23:59:59 CLS Outpatient JESSA ALFONSO APRN A [id number] 03/01/2014 08:23:00 03/01/2014 23:59:59 CLS Outpatient JESSA ALFONSO APRN A [id number] 02/23/2014 10:23:00 02/23/2014 23:59:59 CLS Outpatient ALANIS REDDING HENRI R [id number] 10/14/2013 08:12:00 10/14/2013 23:59:59 CLS Outpatient ALANIS REDDING HENRI R [id number] 10/11/2013 10:56:00 10/11/2013 23:59:59 CLS Outpatient JESSA ALFNOSO APRN A [id number] 08/03/2013 11:03:00 08/03/2013 23:59:59 CLS Outpatient ALANIS REDDING HENRI R [id number] 07/15/2013 10:55:00 07/15/2013 23:59:59 CLS Outpatient JUANCARLOS THAPA APRNINA R [id number] 09/26/2016 22:16:00 09/27/2016 01:21:00 DIS Emergency PERRY FINHC, JASVIR Causey [facility] ER MIGRANE, N/V, DIZZINESS [id number] 12/07/2015 14:51:00 12/07/2015 23:59:59 CLS Outpatient DEBORAH FINCH, JOSE JUAN Peres [facility] RAD PAIN L HAND [id number] 05/17/2015 14:50:00 05/17/2015 23:59:59 CLS Outpatient MARY ARAUJO JET DYEING MACHINE OPERATOR [facility] RAD INSOMNIA [id number] 04/11/2014 13:58:00 04/11/2014 18:15:00 DIS Emergency POLY FINCH, VIRGILIO Sanchez [facility] ER ABD PAIN/BURNING
[2017-07-03 09:10] LABS: BASOPHILS % (AUTO) 0 % (0-10); EOSINOPHILS # (AUTO) 0.6 10^3/uL (0.0-0.3); EOSINOPHILS % (AUTO) 11 % (0-10); HEMATOCRIT 36 % (35-52); HEMOGLOBIN 12.4 G/DL (11.5-16.0); LYMPHOCYTES # (AUTO) 0.9 X 10^3 (1.0-4.0); LYMPHOCYTES % (AUTO) 15 % (12-44); MEAN CORPUSCULAR HEMOGLOBIN 34 PG (25-34); MEAN CORPUSCULAR HGB CONC 35 G/DL (32-36); MEAN CORPUSCULAR VOLUME 98 FL (80-99); MEAN PLATELET VOLUME 8.2 FL (7.4-10.4); MONOCYTES # (AUTO) 0.5 X 10^3 (0.0-1.0); MONOCYTES % (AUTO) 8 % (0-12); NEUTROPHILS # (AUTO) 3.9 X 10^3 (1.8-7.8); NEUTROPHILS % (AUTO) 66 % (42-75); PLATELET COUNT 267 10^3/uL (130-400); RED BLOOD COUNT 3.62 10^6/uL (4.35-5.85); RED CELL DISTRIBUTION WIDTH 13.3 % (10.0-14.5); WHITE BLOOD COUNT 5.9 10^3/uL (4.3-11.0)
--- NOTE | 2017-07-03 09:28 | Diagnostic Imaging Report ---
Portable erect AP chest at 912 hours. INDICATION: Difficulty breathing. There are no prior studies available for comparison. FINDINGS: The heart size is within normal limits. The lungs are clear. There is no sign of failure, pneumonia or pleural effusion to suggest an acute abnormality. The mediastinum is not widened. The osseous structures are intact. IMPRESSION: There is no evidence for an acute cardiopulmonary abnormality. Dictated by: Dictated on workstation # [id number]
[2017-07-03 09:31] LABS: ALANINE AMINOTRANSFERASE 25 U/L (0-55); ALKALINE PHOSPHATASE 68 U/L (40-136); BILIRUBIN,TOTAL 0.3 MG/DL (0.1-1.0); BUN/CREATININE RATIO 14; CALCIUM 8.9 MG/DL (8.5-10.1); CARBON DIOXIDE 23 MMOL/L (21-32); CHLORIDE 104 MMOL/L (98-107); CREATININE SERUM 0.98 MG/DL (0.60-1.30); GFR ESTIMATED > 60; GLUCOSE 112 MG/DL (70-105); POTASSIUM 4.3 MMOL/L (3.6-5.0); SODIUM 138 MMOL/L (135-145); TOTAL PROTEIN 7.1 GM/DL (6.4-8.2)
--- NOTE | 2017-07-03 09:52 | ED Cough/URI ---
General Chief Complaint: Cough/Cold/Flu Symptoms Stated Complaint: DIZZINESS,DIFFICULTY BREATHING,FEVER Nursing Triage Note: c/o weakness/fever/cough. Pt [facility] and diagnosed with "flu". She was told she was out of the window for Tamiflu and to have supportive care. Reports no improvement. Source: patient Exam Limitations: no limitations History of Present Illness Date Seen by Provider: Jul 03, 2017 Time Seen by Provider: 09:48 Initial Comments The patient is a 41-year-old white female. She reports that she was she is 5 days into the illness and therefore was not given Tamiflu. She has been taking Tylenol and still reports myalgia and chills. Timing/Duration: week Severity/Quality: moderate Allergies and Home Medications Allergies Coded Allergies: Penicillins (Unverified Allergy, Unknown, 04/11/14) clindamycin (Unverified Allergy, Unknown, 04/11/14) sulfamethoxazole (Unverified Allergy, Unknown, 09/26/16) tramadol (Unverified Allergy, Unknown, 09/26/16) trimethoprim (Unverified Allergy, Unknown, 09/26/16) Home Medications Duloxetine HCl 60 Mg Capsule.dr, 60 MG PO DAILY, (Reported) Hydrocodone/Ibuprofen 1 Each Tablet, 1 TAB PO PRN, #84 (Reported) Meloxicam 7.5 Mg Tablet, 7.5 MG PO BID, #60 (Reported) Prednisone 20 Mg Tab, PO UD, #18 (Reported) Pregabalin 75 Mg Capsule, 75 MG PO BID, (Reported) Constitutional: see HPI EENTM: nose congestion Respiratory: cough, dyspnea on exertion, short of breath Cardiovascular: no symptoms reported Gastrointestinal: no symptoms reported Genitourinary: no symptoms reported Musculoskeletal: muscle pain Skin: no symptoms reported Psychiatric/Neurological: No Symptoms Reported Hematologic/Lymphatic: No Symptoms Reported Immunological/Allergic: no symptoms reported Past Gfgeqxl-Jluhll-Mqtvke Hx Patient Social History Recent Foreign Travel: No Contact w/Someone Who Travel: No Recent Infectious Disease Expo: No Recent Hopitalizations: No Seasonal Allergies Seasonal Allergies: No Surgeries Surgeries: Section Reproductive System Hx Reproductive Disorders: No Musculoskeletal Musculoskeletal Disorders: Fibromyalgia Blood Transfusions Adverse Reaction to a Blood Tr: No Physical Exam Vital Signs Vital Sign - Last 12Hours 07/03/17 08:27 Temp 101.4 Pulse 104 Resp 20 B/P (MAP) 131/93 (106) Pulse Ox 95 O2 Delivery Room Air Capillary Refill : Less Than 3 Seconds General Appearance: other (appears weary and cheeks are flushed) Eyes: Bilateral Eye Normal Inspection HEENT: normal ENT inspection Neck: full range of motion Respiratory: chest non-tender, lungs clear, normal breath sounds, no respiratory distress, no accessory muscle use, respiratory distress Cardiovascular: normal peripheral pulses, regular rate, rhythm, no edema, no gallop, no JVD, no murmur Gastrointestinal: normal bowel sounds, non tender, soft, no organomegaly, no pulsatile mass Extremities: normal range of motion, non-tender, normal inspection, no pedal edema, no calf tenderness, normal capillary refill, pelvis stable Neurologic/Psychiatric: toby maker II-XII nml as tested, no motor/sensory deficits, alert, normal mood/affect, oriented x 3 Skin: normal color, warm/dry, cyanosis, cool, diaphoresis, damp Lymphatic: no adenopathy Progress/Results/Core Measures Suspected Sepsis Recent Fever Within 48 Hours: Yes Infection Criteria Present: Documented Infection New/Unexplained Altered Menta: No Sepsis Screen: Possible Sepsis Risk Sepsis Diagnosis: SIRS Temperature:101.4 Pulse: 104 Respiratory Rate: 20 Laboratory Tests 07/03/17 09:05: White Blood Count 5.9 Blood Pressure 131 /93 Mean: 106 Laboratory Tests 07/03/17 09:05: Creatinine 0.98, Platelet Count 267, Total Bilirubin 0.3 Results/Orders Lab Results Laboratory Tests Test 07/03/17 09:05 Range/Units White Blood Count 5.9 4.3-11.0 10^3/uL Red Blood Count 3.62 L 4.35-5.85 10^6/uL Hemoglobin 12.4 11.5-16.0 G/DL Hematocrit 36 35-52 % Mean Corpuscular Volume 98 80-99 FL Mean Corpuscular Hemoglobin 34 25-34 PG Mean Corpuscular Hemoglobin Concent 35 32-36 G/DL Red Cell Distribution Width 13.3 10.0-14.5 % Platelet Count 267 130-400 10^3/uL Mean Platelet Volume 8.2 7.4-10.4 FL Neutrophils (%) (Auto) 66 42-75 % Lymphocytes (%) (Auto) 15 12-44 % Monocytes (%) (Auto) 8 0-12 % Eosinophils (%) (Auto) 11 H 0-10 % Basophils (%) (Auto) 0 0-10 % Neutrophils # (Auto) 3.9 1.8-7.8 X 10^3 Lymphocytes # (Auto) 0.9 L 1.0-4.0 X 10^3 Monocytes # (Auto) 0.5 0.0-1.0 X 10^3 Eosinophils # (Auto) 0.6 H 0.0-0.3 10^3/uL Basophils # (Auto) 0.0 0.0-0.1 10^3/uL Sodium Level 138 135-145 MMOL/L Potassium Level 4.3 3.6-5.0 MMOL/L Chloride Level 104 98-107 MMOL/L Carbon Dioxide Level 23 21-32 MMOL/L Anion Gap 11 5-14 MMOL/L Blood Urea Nitrogen 14 7-18 MG/DL Creatinine 0.98 0.60-1.30 MG/DL Estimat Glomerular Filtration Rate > 60 BUN/Creatinine Ratio 14 Glucose Level 112 H 70-105 MG/DL Calcium Level 8.9 8.5-10.1 MG/DL Total Bilirubin 0.3 0.1-1.0 MG/DL Aspartate Amino Transf (AST/SGOT) 21 5-34 U/L Alanine Aminotransferase (ALT/SGPT) 25 0-55 U/L Alkaline Phosphatase 68 40-136 U/L Total Protein 7.1 6.4-8.2 GM/DL Albumin 4.0 3.2-4.5 GM/DL My Orders Orders - RICK ACKERMAN MD Cbc With Automated Diff (07/03/17 08:41) Comprehensive Metabolic Panel (07/03/17 08:41) Chest 1 View, Ap/Pa Only (07/03/17 08:41) Vital Signs/I&O Vital Sign - Last 12Hours 07/03/17 08:27 Temp 101.4 Pulse 104 Resp 20 B/P (MAP) 131/93 (106) Pulse Ox 95 O2 Delivery Room Air Capillary Refill : Less Than 3 Seconds Blood Pressure Mean: 106 Departure Impression Impression: Primary Impression: Influenza-like symptoms Disposition: 01 HOME, SELF-CARE Condition: Stable/Unchanged Departure-Patient Inst. Decision time for Depature: 09:54 Referrals: [facility] (PCP/Family) Primary Care Physician Patient Instructions: Flu, Adult (DC) Add. Discharge Instructions: All discharge instructions reviewed with patient and/or family. Voiced understanding. Extra rest. Lots of liquids. Treat temperature greater than 101. At 102.5 ibuprofen will be more effective in the relief of pain and fever. Maximum dose for Tylenol is 4000 mg per day. Maximum dose for ibuprofen is 2400 mg per day. RICK ACKERMAN MD Jul 03, 2017 09:52
[2017-07-03 10:02] VITALS: BP 128/90
== END 2017-07-03 10:02 | disposition home or self-care (01) ==
LOC: EDUNIT# 08:12 → ER 08:15
DX: J10.1 Influenza due to other identified influenza virus with other respiratory manifestations (principal); Z87.59 Personal history of other complications of pregnancy, childbirth and the puerperium
CPT/HCPCS: 36415; 71045; 80053; 85025; 99282

== ENCOUNTER 2020-01-12 17:17 | Emergency (ER) | payer SELFPAY ==
[~2020-01-12] VITALS: Ht 165.1 cm; Wt 99.8 kg
[2020-01-12] MEDS ORDERED: KETOROLAC 60 MG/2 ML VIAL IM STA (17:46)
--- NOTE | 2020-01-12 17:46 | ED EENT ---
History of Present Illness General Stated Complaint: L EAR PAIN, HEADACHE Source: patient Exam Limitations: no limitations (ADALBERTO SYLVESTER DO) History of Present Illness Date Seen by Provider: Jan 12, 2020 Time Seen by Provider: 17:40 Initial Comments 44-year-old female presents with pain in her left outer ear. Patient reports about 2 weeks ago she had a little swelling on area that she tested her ear "blew up" she was seen by urgent care and given a 10 day prescription of an antibiotic. She reports she took to 10 days is prescribed. States that she was recently seen again today at urgent care because he still had some minor swelling, some pain around her ear and a headache. She reports she was given a steroid at urgent care. She comes in now because she still has a headache pain in her blood pressure is elevated. She thinks her blood pressure is elevated due to the pain since is normally not elevated. She does not have any chest pain, vision changes. (ADALBERTO SYLVESTER DO) Allergies and Home Medications Allergies Coded Allergies: Penicillins (Unverified Allergy, Unknown, 04/11/14) clindamycin (Unverified Allergy, Unknown, 04/11/14) sulfamethoxazole (Unverified Allergy, Unknown, 09/26/16) tramadol (Unverified Allergy, Unknown, 09/26/16) trimethoprim (Unverified Allergy, Unknown, 09/26/16) Home Medications Duloxetine HCl 60 Mg Capsule.dr, 60 MG PO DAILY, (Reported) Hydrocodone/Ibuprofen 1 Each Tablet, 1 TAB PO PRN, (Reported) Meloxicam 7.5 Mg Tablet, 7.5 MG PO BID, (Reported) Naproxen 500 Mg Tablet, 500 MG PO BID Prescribed by: ADALBERTO SYLVESTER on 01/12/20 1800 Prednisone 20 Mg Tab, PO UD, (Reported) Pregabalin 75 Mg Capsule, 75 MG PO BID, (Reported) Patient Home Medication List Home Medication List Reviewed: Yes (ADALBERTO SYLVESTER DO) Review of Systems Review of Systems Constitutional: No chills, No fever Eyes: No Symptoms Reported Ears: See HPI, Dizziness Mouth: no symptoms reported Throat: no symptoms reported Respiratory: No cough, No short of breath Cardiovascular: No chest pain, No palpitations Gastrointestinal: No abdominal pain, No nausea, No vomiting Musculoskeletal: no symptoms reported Skin: see HPI Neurological: Headache (ADALBERTO SYLVESTER DO) Past Pslrssr-Ezpftx-Cnirja Hx Past Med/Social Hx: Reviewed Nursing Past Med/Soc Hx (ADALBERTO SYLVESTER DO) Patient Social History Recent Foreign Travel: No Contact w/Someone Who Travel: No Recent Hopitalizations: No (ADALBERTO SYLVESTER DO) Seasonal Allergies Seasonal Allergies: No (ADALBERTO SYLVESTER DO) Past Medical History Section Reproductive Disorders: No Fibromyalgia Adverse Reaction/Blood Tranf: No (ADALBERTO SYLVESTER DO) Physical Exam Vital Signs Vital Signs - First Documented 01/12/20 17:30 Temp 37.0 Pulse 113 Resp 20 B/P (MAP) 176/125 (142) Pulse Ox 98 O2 Delivery Room Air (VIRGILIO PANG MD) Height, Weight, BMI Height: 5'5.00" Weight: 280lbs. oz. 127.570950js; BMI Method:Stated General Appearance: WD/WN, no apparent distress Ears: right ear auricle normal (swelling to the upper aspect of the external left ear); left ear swelling; bilateral ear canal normal, bilateral ear TM normal Neck: full range of motion, supple Cardiovascular: normal peripheral pulses, regular rate, rhythm Respiratory: lungs clear, normal breath sounds, no respiratory distress Gastrointestinal: non tender, soft (mild erythema to the auricle of the left ear) (ADALBERTO SYLVESTER DO) Progress/Results/Core Measures Results/Orders Lab Results Laboratory Tests Test 01/12/20 18:40 Range/Units White Blood Count 7.3 4.3-11.0 10^3/uL Red Blood Count 4.07 L 4.35-5.85 10^6/uL Hemoglobin 13.6 11.5-16.0 G/DL Hematocrit 40 35-52 % Mean Corpuscular Volume 97 80-99 FL Mean Corpuscular Hemoglobin 33 25-34 PG Mean Corpuscular Hemoglobin Concent 34 32-36 G/DL Red Cell Distribution Width 14.0 10.0-14.5 % Platelet Count 347 130-400 10^3/uL Mean Platelet Volume 9.1 7.4-10.4 FL Neutrophils (%) (Auto) 93 H 42-75 % Lymphocytes (%) (Auto) 6 L 12-44 % Monocytes (%) (Auto) 1 0-12 % Eosinophils (%) (Auto) 0 0-10 % Basophils (%) (Auto) 0 0-10 % Neutrophils # (Auto) 6.8 1.8-7.8 X 10^3 Lymphocytes # (Auto) 0.5 L 1.0-4.0 X 10^3 Monocytes # (Auto) 0.1 0.0-1.0 X 10^3 Eosinophils # (Auto) 0.0 0.0-0.3 10^3/uL Basophils # (Auto) 0.0 0.0-0.1 10^3/uL Neutrophils % (Manual) 96 % Lymphocytes % (Manual) 2 % Monocytes % (Manual) 2 % Blood Morphology Comment NORMAL Sodium Level 141 135-145 MMOL/L Potassium Level 3.6 3.6-5.0 MMOL/L Chloride Level 109 H 98-107 MMOL/L Carbon Dioxide Level 20 L 21-32 MMOL/L Anion Gap 12 5-14 MMOL/L Blood Urea Nitrogen 13 7-18 MG/DL Creatinine 0.89 0.60-1.30 MG/DL Estimat Glomerular Filtration Rate > 60 BUN/Creatinine Ratio 15 Glucose Level 157 H 70-105 MG/DL Calcium Level 9.9 8.5-10.1 MG/DL C-Reactive Protein High Sensitivity 0.25 0.00-0.50 MG/DL (VIRGILIO PANG MD) My Orders Orders - VIRGILIO PANG MD Basic Metabolic Panel (01/12/20 18:24) Cbc With Automated Diff (01/12/20 18:24) Hs C Reactive Protein (01/12/20 18:24) Ct Head Wo (01/12/20 18:24) Ed Iv/Invasive Line Start (01/12/20 18:25) Urine Bedside (01/12/20 18:33) Manual Differential (01/12/20 18:40) Promethazine Injection (Phenergan Injec (01/12/20 20:30) Diphenhydramine Tablet (Benadryl Tablet) (01/12/20 20:30) Fentanyl Injection (Sublimaze Injection (01/12/20 20:30) Ns Iv 1000 Ml (Sodium Chloride 0.9%) (01/12/20 20:21) (VIRGILIO PANG MD) Medications Given in ED Current Medications Medications Dose Ordered Sig/Ana María Route Start Time Stop Time Status Last Admin Dose Admin Diphenhydramine HCl 50 mg ONCE ONCE PO 01/12/20 20:30 01/12/20 20:31 DC 01/12/20 20:30 50 MG Fentanyl Citrate 50 mcg ONCE ONCE IVP 01/12/20 20:30 01/12/20 20:31 DC 01/12/20 20:32 50 MCG Promethazine HCl 25 mg ONCE ONCE IVP 01/12/20 20:30 01/12/20 20:31 DC 01/12/20 20:31 25 MG (VIRGILIO PANG MD) Vital Signs/I&O 01/12/20 01/12/20 17:30 21:14 Temp 37.0 37.0 Pulse 113 93 Resp 20 19 B/P (MAP) 176/125 (142) 146/99 (142) Pulse Ox 98 98 O2 Delivery Room Air Room Air 01/13/20 00:00 Intake Total 1000 ml Balance 1000 ml (VIRGILIO PANG MD) Progress Progress Note : Progress Note I assumed care of this patient from Dr. Sylvester at shift change. Patient was still experiencing significant pain and hypertension after Toradol. She was reexamine d and found to have a significantly tender left mastoid. Exam was otherwise unremarkable except for mild edema of the pinna. I discussed further options with the patient. She is concerned about progressive infection and possible mastoiditis. We discussed risks and benefits of CT scan and she elects to proceed with CT scan. CT scan was felt appropriate not only because of possi bility mastoiditis but also because she had a new onset of severe headaches or migraines starting about one year ago. CT scan was ultimately unremarkable. Patient stated she had been treated with a "cocktail" previously for a similar severe headache. She was then given Phenergan, fentanyl, a liter of IV normal saline, and oral Benadryl. This improved her headache significantly and she was discharged home. (VIRGILIO PANG MD) Diagnostic Imaging Diagonstic Imaging: CT Plain Films/CT/US/NM/MRI: head Comments CT head viewed by me and report reviewed. See report below: NAME: CARLA BATES [facility] REC#: [id number] PT STATUS: REG ER : 1975 PHYSICIAN: VIRGILIO PANG MD ADMIT DATE: 01/12/20/ER Signed Date of Exam:01/12/20 CT HEAD WO Clinical indication: Patient with left ear infection, pain over left mastoid. Evaluate for mastoiditis. Patient has been having migraines. Exam: Axial CT scan of the brain without IV contrast with coronal and sagittal reformatted images. Auto Exposure Controls were utilized during the CT exam to meet ALARA standards for radiation dose reduction. Comparison: MRI of the brain performed without and with IV contrast dated 05/17/2015. Findings: There is no evidence of acute cerebral infarct, intracranial hemorrhage or gross mass effect. The brain parenchymal volume appears appropriate for patient's age. There is normal chow-white matter distinction. There is no significant midline shift or herniation. There is no evidence of hydrocephalus. The basal cisterns are unremarkable. The skull, extracranial soft tissue and orbits are unremarkable. The paranasal sinuses are unremarkable. Temporal bones show no significant abnormality. Impression: Unremarkable CT scan of the brain. Dictated by: Dictated on workstation # [id number] Dict: 01/12/201934 Trans: 01/12/202026 [facility] [id number] Interpreted by: KITA CRAWLEY MD Electronically signed by: KITA CRAWLEY MD 01/12/202026 (VIRGILIO PANG MD) Departure Impression Primary Impression: Perichondritis of left external ear Additional Impressions: Acute headache Qualified Codes: R51 - Headache Hypertension Qualified Codes: I10 - Essential (primary) hypertension Disposition: 01 HOME, SELF-CARE Condition: Improved Departure-Patient Inst. Decision time for Depature: 20:59 (VIRGILIO PANG MD) Referrals: VICKI BATES MD Call tomorrow for an appointment next week for recheck of today symptoms HUBER MARLEY MD (PCP/Family) Primary Care Physician Patient Instructions: Headache, Adult Add. Discharge Instructions: Called Dr. Bates's office in the morning for follow-up to have this monitored closely. You may take naproxen as prescribed and Tylenol (acetaminophen) up to 1000 mg every 6 hours as needed for pain. Try to rest in a quiet, calm, dark environment for the remainder of the night. Follow-up with your primary care provider as soon as possible to have your blood pressure checked again. Return to the emergency room if you have any further problems or concerns. Scripts Naproxen (Naprosyn) 500 Mg Tablet 500 MG PO BID, #30 TAB 0 Refills Prov: ADALBERTO SYLVESTER DO 01/12/20 Copy Copies To 1: HUBER MARLEY MD, TREVOR L DO Jan 12, 2020 17:46 VIRGILIO PANG MD Jan 12, 2020 21:02
[2020-01-12] MEDS ORDERED: NAPR-1071 PO (18:00)
[2020-01-12 18:50] LABS: BASOPHILS % (AUTO) 0 % (0-10); EOSINOPHILS % (AUTO) 0 % (0-10); HEMATOCRIT 40 % (35-52); HEMOGLOBIN 13.6 G/DL (11.5-16.0); LYMPHOCYTES # (AUTO) 0.5 X 10^3 (1.0-4.0); LYMPHOCYTES % (AUTO) 6 % (12-44); MEAN CORPUSCULAR HEMOGLOBIN 33 PG (25-34); MEAN CORPUSCULAR HGB CONC 34 G/DL (32-36); MEAN CORPUSCULAR VOLUME 97 FL (80-99); MEAN PLATELET VOLUME 9.1 FL (7.4-10.4); MONOCYTES # (AUTO) 0.1 X 10^3 (0.0-1.0); MONOCYTES % (AUTO) 1 % (0-12); NEUTROPHILS # (AUTO) 6.8 X 10^3 (1.8-7.8); NEUTROPHILS % (AUTO) 93 % (42-75); PLATELET COUNT 347 10^3/uL (130-400); WHITE BLOOD COUNT 7.3 10^3/uL (4.3-11.0)
[2020-01-12 18:59] LABS: CHLORIDE 109 MMOL/L (98-107); POTASSIUM 3.6 MMOL/L (3.6-5.0); SODIUM 141 MMOL/L (135-145)
[2020-01-12 19:01] LABS: CALCIUM 9.9 MG/DL (8.5-10.1); GLUCOSE 157 MG/DL (70-105)
[2020-01-12 19:03] LABS: CARBON DIOXIDE 20 MMOL/L (21-32)
[2020-01-12 19:05] LABS: CREATININE SERUM 0.89 MG/DL (0.60-1.30); GFR ESTIMATED > 60
[2020-01-12 19:06] LABS: BUN/CREATININE RATIO 15
[2020-01-12 19:19] LABS: LYMPHOCYTES % (MANUAL) 2 %; MONOCYTES % (MANUAL) 2 %; NEUTROPHILS % (MANUAL) 96 %; RBC MORPH NORMAL
--- NOTE | 2020-01-12 19:43 | Diagnostic Imaging Report ---
Clinical indication: Patient with left ear infection, pain over left mastoid. Evaluate for mastoiditis. Patient has been having migraines. Exam: Axial CT scan of the brain without IV contrast with coronal and sagittal reformatted images. Auto Exposure Controls were utilized during the CT exam to meet ALARA standards for radiation dose reduction. Comparison: MRI of the brain performed without and with IV contrast dated 05/17/2015. Findings: There is no evidence of acute cerebral infarct, intracranial hemorrhage or gross mass effect. The brain parenchymal volume appears appropriate for patient's age. There is normal chow-white matter distinction. There is no significant midline shift or herniation. There is no evidence of hydrocephalus. The basal cisterns are unremarkable. The skull, extracranial soft tissue and orbits are unremarkable. The paranasal sinuses are unremarkable. Temporal bones show no significant abnormality. Impression: Unremarkable CT scan of the brain. Dictated by: Dictated on workstation # [id number]
--- OUTSIDE RECORDS SUMMARY | 2020-01-12 19:58 | XMS REPORT ---
Author Author Nani Ritter Organization [facility] Address [address] [place] [address] Care Team Providers Care Retail Store Assistant Name Role Phone HENRI Ritter Unavailable PROBLEMS Type Condition ICD9-CM Code XDD86-SJ Code Onset Dates Condition S tatus SNOMED Code Problem Fibromyalgia M79.7 Active 9177491 7 Problem Personal history of alcoholism F10.21 Active 529374140 Problem Low back pain M54.5 Active 819163 009 Problem Sinusitis J32.9 Active 21253016 Problem Obesity E66.9 Active 051201787 Problem Insomnia G47.00 Active 479693319 Problem Chronic pain syndrome G89.4 Active 317898623 Problem Other chronic pain G89.29 Active 8 [id number] ALLERGIES No Information ENCOUNTERS Encounter Location Date Diagnosis [facility] [address] [address] Aug, [facility] [address] [facility] [id number] [address] [place] [address] 13 Jul, 2019 Flank pain R10.9 and Hematur ia, unspecified type R31.9 [facility] [address] [place], [place] [id number] [place] [address] 13 Jul, 2019 Fibromyalgia M79.7 and Strain of lumbar region, initial encounter S39.012A [facility] [id number] [place] [address] Jun, Strain of lumbar region, initial encount er S39.012A [facility] [address] [address] Jun, [facility] [address] [address] 17 [place], 2020 Strain of lumbar region, initial encount er S39.012A and Fibromyalgia M79.7 [facility] [address] [address] Apr, Fibromyalgia M79.7 [place] [address] [address] Feb, Fibromyalgia M79.7 [place] [address] [address] Dec, Fibromyalgia M79.7 [place] [address] [address] October, Fibromyalgia M79.7 [place] [address] [address] Sep, Fibromyalgia M79.7 [place] [address] [address] Jul, Fibromyalgia M79.7 [place] [address] [address] Jun, Sinusitis J32.9 and BMI 40.0-44.9, adult Z68.41 [place] [address] [address] 12 Mar, 2018 Fibromyalgia M79.7 ; Muscle spasm M62.83 8 and BMI 40.0-44.9, adult Z68.41 [place] [address] [address] Mar, [facility] [address] [address] Dec, Fibromyalgia M79.7 ; Low back pain M54.5 ; Other chronic pain G89.29 and BMI 45.0-49.9, adult Z68.42 [place] [address] [address] Nov, [facility] [address] [facility] [id number] [address] [place] [address] Aug, Fibromyalgia M79.7 and BMI 5 0.0-59.9, adult Z68.43 [facility] [address] [address] Aug, [facility] [address] [address] Aug, [facility] [address] [address] Jul, [facility] [address] [address] Jul, Insomnia G47.00 [facility] [address] [address] Jul, [facility] [address] [address] Jul, [facility] [address] [address] Jul, [facility] [address] [address] Jul, Fibromyalgia M79.7 [facility] [address] [address] Jul, [facility] [address] [address] Jun, Chronic pain syndrome G89.4 and Fibromya lgia M79.7 [facility] [address] [address] Jun, Fibromyalgia M79.7 [facility] [address] [address] Jun, Bronchitis J40 ; Fibromyalgia M79.7 ; Malaika mbago with sciatica, left side M54.42 ; Lumbago with sciatica, right side M54.41 ; Other chronic pain G89.29 and BMI 45.0-49.9, adult Z68.42 [facility] [address] [facility] [id number] [address] [place] [address] Jun, Influenza-like illness R69 [facility] [address] [address] Jun, [facility] [address] [address] Jun, Fibromyalgia M79.7 [facility] [address] [address] May, Fibromyalgia M79.7 [facility] [address] [address] Apr, Insomnia G47.00 [place] [address] [address] Apr, [facility] [address] [address] Apr, [place] [address] [address] Apr, Fibromyalgia M79.7 [facility] [address] [address] Mar, Encounter for immunization Z23 [place] [address] [address] 10 Mar, 2017 Visit for TB skin test Z11.1 [place] [address] [address] Mar, Fibromyalgia M79.7 [facility] [address] [address] Feb, Fibromyalgia M79.7 [facility] [address] [address] Feb, [facility] [address] [address] Feb, Fibromyalgia M79.7 [facility] [address] [address] Jan, Fibromyalgia M79.7 ; Obesity E66.9 ; Ins omnia G47.00 and Chronic pain syndrome G89.4 [facility] [id number] [place] [address] Jan, [facility] [id number] [place] [address] Jan, [facility] [id number] [place] [address] Dec, [facility] [address] [address] Dec, [facility] [address] [address] Dec, [facility] [address] [address] Nov, Chronic pain syndrome G89.4 [facility] [address] [address] October, Chronic pain syndrome G89.4 [facility] [id number] [place] [address] October, Chronic pain syndrome G89.4 [facility] [address] [address] October, [facility] [address] [address] October, Chronic pain syndrome G89.4 [facility] [address] [address] October, Chronic pain syndrome G89.4 and Fibromya lgia M79.7 [facility] [address] [place] [address] October, Fibromyalgia M79.7 and Chronic pain synd mariposa G89.4 [facility] [id number] [place] [address] Sep, Encounter for immunization Z23 [facility] [address] [address] Sep, [facility] [address] [address] Sep, [facility] [address] [address] Aug, Fibromyalgia M79.7 and Insomnia G47.00 [place] [address] [address] Aug, Obesity E66.9 ; Snoring R06.83 ; Fibromy algia M79.7 ; Insomnia G47.00 and Screening cholesterol level Z13.220 [place] [address] [address] Aug, Fibromyalgia M79.7 [place] [address] [address] 13 Jul, 2016 Obesity E66.9 ; Personal history of alco holism F10.21 and Fibromyalgia M79.7 [place] [address] [address] Jul, [place] [address] [address] Jun, Obesity E66.9 ; Chronic pain syndrome G8 9.4 ; Fibromyalgia M79.7 ; Insomnia G47.00 and Wellness examination Z00.00 [place] [address] [address] Jun, Personal history of alcoholism F10.21 an d Chronic pain syndrome G89.4 [place] [address] [address] Jun, [place] [address] [address] Jun, Fibromyalgia M79.7 [place] [address] [address] May, Fibromyalgia M79.7 [facility] [address] [address] May, [place] [address] [address] Apr, Obesity E66.9 ; Fibromyalgia M79.7 ; Ins omnia G47.00 and Personal history of alcoholism F10.21 [facility] [address] [address] Apr, [facility] [address] [address] Apr, [facility] [address] [address] Mar, [facility] [address] [address] Mar, [facility] [address] [address] Feb, [facility] [address] [address] Jan, [facility] [address] [address] Dec, Obesity E66.9 ; Fibromyalgia M79.7 ; Per carlitos history of alcoholism F10.21 and Insomnia G47.00 [facility] [address] [address] Dec, Chronic pain syndrome G89.4 [facility] [address] [address] Dec, [facility] [address] [address] Dec, [facility] [address] [address] Nov, [facility] [address] [address] Nov, [facility] [address] [address] Nov, Fibromyalgia M79.7 ; Obesity E66.9 ; Per carlitos history of alcoholism F10.21 ; Insomnia G47.00 and Chronic pain syndrome G89.4 [facility] [address] [address] Nov, Fibromyalgia M79.7 [facility] [address] [address] October, Fibromyalgia M79.7 [facility] [address] [address] October, Obesity E66.9 ; Fibromyalgia M79.7 ; Per carlitos history of alcoholism F10.21 and Insomnia G47.00 [facility] [address] [address] Sep, [facility] [address] [address] Aug, Fibromyalgia M79.7 ; Obesity E66.9 ; Per carlitos history of alcoholism F10.21 and Insomnia G47.00 [place] [address] [address] Aug, [facility] [address] [address] Jul, [facility] [address] [address] Jun, [place] [address] [address] Jun, [facility] [address] [address] May, [facility] [address] [address] May, Fibromyalgia M79.7 ; Obesity E66.9 and I nsomnia G47.00 [facility] [address] [address] May, [facility] [address] [address] May, Fibromyalgia M79.7 ; Personal history of alcoholism F10.21 ; Insomnia G47.00 and Obesity E66.9 [place] [address] [address] Apr, [place] [address] [address] Apr, Fibromyalgia M79.7 ; Obesity E66.9 ; Ins omnia G47.00 ; Personal history of alcoholism F10.21 and Frequent falls R29.6 [place] [address] [address] Apr, Obesity E66.9 ; Fibromyalgia M79.7 and I nsomnia G47.00 [place] [address] [address] Mar, [place] [address] [address] Mar, [place] [address] [address] Mar, [place] [address] [address] Mar, Obesity E66.9 ; Fibromyalgia M79.7 and P ersonal history of alcoholism F10.21 [place] [address] [address] Feb, [place] [address] [address] Feb, Other malaise and fatigue 780.79 ; Abnor mal weight gain 783.1 and Fibromyalgia 729.1 [place] [address] [address] Jan, [place] [address] [address] Dec, [place] [address] [address] Dec, Fibromyalgia 729.1 and Abnormal weight g ain 783.1 [place] [address] [address] Dec, Unspecified myalgia and myositis 729.1 ; Abnormal weight gain 783.1 and Fibromyalgia 729.1 [facility] [address] [address] Nov, [facility] [address] [address] Nov, Other malaise and fatigue 780.79 ; Unspe cified myalgia and myositis 729.1 and Abnormal weight gain 783.1 [facility] [address] [address] Nov, [facility] [address] [address] Nov, [facility] [address] [address] October, [facility] [address] [address] October, Unspecified myalgia and myositis 729.1 a nd Scabies 133.0 [facility] [address] [address] October, [facility] [address] [address] Sep, [facility] [address] [address] Sep, [facility] [address] [address] Aug, [facility] [address] [address] Aug, [facility] [address] [address] Aug, [facility] [address] [address] Aug, [facility] [address] [place] [address] 12 Aug, 2014 [facility] [address] [facility] [id number] [place] [address] 12 Aug, 2014 [facility] [address] [id number] [place] [address] Aug, [facility] [address] [id number] [place] [address] Aug, 2014 [facility] [address] [id number] [place] [address] Aug, [facility] [address] [id number] [place] [address] Aug, [facility] [address] [id number] [place] [address] May, [facility] [address] [id number] [place] [address] May, [facility] [address] [id number] [place] [address] Mar, [facility] [address] [id number] [place] [address] Mar, [facility] [address] [id number] [place] [address] Feb, [facility] [address] [id number] [place] [address] Feb, [facility] [address] [id number] [place] [address] Feb, [facility] [address] [id number] [place] [address] Feb, [facility] [address] [id number] [place] [address] October, [facility] [address] [id number] [place] [address] October, [facility] [address] [id number] [place] [address] October, [facility] [address] [id number] [place] [address] October, [facility] [address] [id number] [place] [address] Sep, [facility] [address] [id number] [place] [address] Sep, [facility] [address] [id number] [place] [address] Sep, [facility] [id number] [place] [address] Sep, [facility] [id number] [place] [address] Jul, [facility] [id number] [place] [address] Jul, [facility] [address] [id number] [place] [address] Jun, [facility] [id number] [place] [address] Jun, [facility] [address] [id number] [place] [address] May, [facility] [address] [id number] [place] [address] May, IMMUNIZATIONS No Known Immunizations SOCIAL HISTORY Never Assessed REASON FOR VISIT PLAN OF CARE VITAL SIGNS Height 64 in 2013-07-15 Weight 250.5 lbs 2013-07-15 Temperature 98.1 degrees Fahrenheit 2013-07-15 Heart Rate 88 bpm 2013-07-15 Respiratory Rate 18 2013-07-15 Blood pressure systolic 122 mmHg 2013-07-15 Blood pressure diastolic 90 mmHg 2013-07-15 MEDICATIONS Unknown Medications RESULTS No Results PROCEDURES No Known procedures INSTRUCTIONS MEDICATIONS ADMINISTERED No Known Medications MEDICAL (GENERAL) HISTORY Type Description Date Medical History fibromyalgia Medical History insomnia Medical History obesity Surgical History ganglion cyst removal 1996 Surgical History section 2003 Hospitalization History surgeries
--- OUTSIDE RECORDS SUMMARY | 2020-01-12 19:58 | XMS REPORT ---
Author Author Nani Ritter Organization [facility] Address [address] [place] [address] Care Team Providers Care Miter Saw Operator Name Role Phone HENRI Ritter Unavailable PROBLEMS Type Condition ICD9-CM Code MEM17-CB Code Onset Dates Condition S tatus SNOMED Code Problem Fibromyalgia M79.7 Active 8369051 7 Problem Personal history of alcoholism F10.21 Active 021705633 Problem Low back pain M54.5 Active 534151 009 Problem Sinusitis J32.9 Active 42667458 Problem Obesity E66.9 Active 990487125 Problem Insomnia G47.00 Active 980142125 Problem Chronic pain syndrome G89.4 Active 467575880 Problem Other chronic pain G89.29 Active 8 [id number] ALLERGIES No Information ENCOUNTERS Encounter Location Date Diagnosis [facility] [address] [facility] [id number] [address] [place] [address] 13 Jul, 2019 Flank pain R10.9 and Hematur ia, unspecified type R31.9 [facility] [address] [facility] [id number] [address] [place] [address] 13 Jul, 2019 Fibromyalgia M79.7 and Strai n of lumbar region, initial encounter S39.012A [facility] [address] [facility] [id number] [address] [place] [address] Jun, Strain of lumbar region, ini tial encounter S39.012A [facility] [address] [facility] [id number] [address] [place] [address] Jun, [facility] [address] [facility] [id number] [address] [place] [address] 17 Jun, 2019 Strain of lumbar region, ini tial encounter S39.012A and Fibromyalgia M79.7 [facility] [address] [facility] [id number] [address] [place] [address] Apr, Fibromyalgia M79.7 [facility] [address] [place] [id number] [address] [place] [address] Feb, Fibromyalgia M79.7 [facility] [address] [place] [id number] [address] [place] [address] Dec, Fibromyalgia M79.7 [facility] [address] [place] [id number] [address] [place] [address] October, Fibromyalgia M79.7 [facility] [address] [place] [id number] [place] [address] Sep, Fibromyalgia M79.7 [facility] [address] [place] [id number] [place] [address] Jul, Fibromyalgia M79.7 [facility] [address] [place] [id number] [place] [address] Jun, Sinusitis J32.9 and BMI 40.0 -44.9, adult Z68.41 [facility] [address] [address] 12 Mar, 2018 Fibromyalgia M79.7 ; Muscle spasm M62.838 and BMI 40.0-44.9, adult Z68.41 [facility] [address] [address] Mar, [facility] [address] [place] [id number] [place] [address] Dec, Fibromyalgia M79.7 ; Low gersno k pain M54.5 ; Other chronic pain G89.29 and BMI 45.0-49.9, adult Z68.42 [facility] [address] [place] [id number] [address] [place] [address] Nov, [facility] [address] [facility] [id number] [address] [place] [address] Aug, Fibromyalgia M79.7 and BMI 5 0.0-59.9, adult Z68.43 [facility] [address] [facility] [id number] [address] [place] [address] Aug, [facility] [address] [facility] [id number] [address] [place] [address] Aug, [facility] [address] [facility] [id number] [address] [place] [address] Jul, [facility] [address] [facility] [id number] [address] [place] [address] Jul, Insomnia G47.00 [facility] [address] [facility] [id number] [address] [place] [address] Jul, [facility] [address] [facility] [id number] [address] [place] [address] Jul, [facility] [address] [facility] [id number] [address] [place] [address] Jul, [facility] [address] [facility] [id number] [address] [place] [address] Jul, Fibromyalgia M79.7 [facility] [address] [facility] [id number] [address] [place] [address] Jul, [facility] [address] [facility] [id number] [address] [place] [address] Jun, Chronic pain syndrome G89.[address] [facility] [address] [facility] [id number] [address] [place] [address] Jun, Fibromyalgia M79.7 [facility] [address] [facility] [id number] [address] [place] [address] Jun, Bronchitis J40 ; Fibromyalgi a M79.7 ; Lumbago with sciatica, left side M54.42 ; Lumbago with sciatica, right side M54.41 ; Other chronic pain G89.29 and BMI 45.0-49.9, adult Z68.42 [facility] [address] [facility] [id number] [address] [place] [address] Jun, Influenza-like illness R69 [facility] [address] [facility] [id number] [address] [place] [address] Jun, [facility] [address] [facility] [id number] [address] [place] [address] Jun, Fibromyalgia M79.7 [facility] [address] [place] [id number] [address] [place] [address] May, Fibromyalgia M79.7 [facility] [address] [place] [id number] [address] [place] [address] Apr, Insomnia G47.00 [facility] [address] [place] [id number] [address] [place] [address] Apr, [facility] [address] [place] [id number] [address] [place] [address] Apr, [facility] [address] [place] [id number] [address] [place] [address] Apr, Fibromyalgia M79.7 [facility] [address] [place] [id number] [address] [place] [address] 16 Mar, 2017 Encounter for immunization Z 23 [facility] [address] [place] [id number] [address] [place] [id number] 10 Mar, 2017 Visit for TB skin test Z11.1 [facility] [address] [facility] [id number] [address] [place] [address] 04 Mar, [address] [facility] [address] [place] [id number] [address] [place] [address] 12 Feb, [address] [facility] [address] [place] [id number] [address] [place] [address] 11 Feb, 2017 [facility] [address] [place] [id number] [address] [place] [address] Feb, Fibromyalgia M79.7 [facility] [address] [id number] [address] [place] [address], [place] [address] Jan, Fibromyalgia M79.7 ; Obesity E66.9 ; Insomnia G47.00 and Chronic pain syndrome G89.4 [facility] [address] [id number] [address] [place] [address], [place] [address] Jan, [facility] [address] [id number] [address] [place] [address], [place] [address] Jan, [facility] [address] [id number] [address] [place] [address], [place] [address] Dec, [facility] [address] [id number] [address] [place] [address], [place] [address] Dec, [facility] [address] [id number] [address] [place] [address], [place] [address] Dec, [facility] [address] [id number] [address] [place] [address] Nov, Chronic pain syndrome G89.4 [facility] [address] [id number] [address] [place] [address], [place] [address] October, Chronic pain syndrome G89.4 [facility] [address] [id number] [address] [place] [address], [place] [address] October, Chronic pain syndrome G89.4 [facility] [address] [id number] [address] [place] [address], [place] [address] October, [facility] [address] [id number] [address] [place] [address] October, Chronic pain syndrome G89.4 [facility] [address] [id number] [address] [place] [address], [place] [address] October, Chronic pain syndrome G89.[address] [facility] [address] [id number] [address] [place] [address] October, Fibromyalgia M79.7 and Chron ic pain syndrome G89.4 [place] [id number] [address] Sep, Encounter for immunization Z 23 [place] [address] [address] 13 Sep, 2016 [place] [address] [address] Sep, [place] [address] [address] Aug, Fibromyalgia M79.7 and Insom christo G47.00 [place] [address] [address] Aug, Obesity E66.9 ; Snoring R06. 83 ; Fibromyalgia M79.7 ; Insomnia G47.00 and Screening cholesterol level Z13.220 [place] [address] [address] Aug, Fibromyalgia M79.7 [place] [address] [address] Jul, Obesity E66.9 ; Personal his tory of alcoholism F10.21 and Fibromyalgia M79.7 [place] [address] [address] Jul, [place] [address] [address] Jun, Obesity E66.9 ; Chronic pain syndrome G89.4 ; Fibromyalgia M79.7 ; Insomnia G47.00 and Wellness examination Z00.00 [place] [address] [address] Jun, Personal history of alcoholi sm F10.21 and Chronic pain syndrome G89.4 [place] [address] [address] Jun, [place] [address] [place] [address] Jun, Fibromyalgia M79.7 [facility] [address] [id number] [address] [place] [address] May, Fibromyalgia M79.7 [facility] [address] [facility] [id number] [address] [place] [address] May, [facility] [address] [facility] [id number] [address] [place] [address] Apr, Obesity E66.9 ; Fibromyalgia M79.7 ; Insomnia G47.00 and Personal history of alcoholism F10.21 [facility] [address] [id number] [address] [place] [address] Apr, [facility] [address] [facility] [id number] [address] [place] [address] Apr, [facility] [address] [facility] [id number] [address] [place] [address] Mar, [facility] [address] [id number] [address] [place] [address] Mar, [facility] [address] [facility] [id number] [address] [place] [address] Feb, [facility] [address] [facility] [id number] [address] [place] [address] Jan, [facility] [address] [facility] [id number] [address] [place] [address] Dec, Obesity E66.9 ; Fibromyalgia M79.7 ; Personal history of alcoholism F10.[address] [facility] [address] [id number] [address] [place] [address] Dec, Chronic pain syndrome G89.4 [facility] [address] [facility] [id number] [address] [place] [address] Dec, [facility] [address] [facility] [id number] [address] [place] [address] Dec, [facility] [address] [facility] [id number] [address] [place] [address] Nov, [facility] [address] [facility] [id number] [address] [place] [address] Nov, [facility] [address] [facility] [id number] [address] [place] [address] Nov, Fibromyalgia M79.7 ; Obesity E66.9 ; Personal history of alcoholism F10.21 ; Insomnia G47.00 and Chronic pain syndrome G89.4 [facility] [address] [facility] [id number] [address] [place] [address] Nov, Fibromyalgia M79.7 [facility] [address] [facility] [id number] [address] [place] [address] October, Fibromyalgia M79.7 [facility] [address] [facility] [id number] [address] [place] [address] October, Obesity E66.9 ; Fibromyalgia M79.7 ; Personal history of alcoholism F10.[address] [facility] [address] [facility] [id number] [address] [place] [address] Sep, [facility] [address] [facility] [id number] [address] [place] [address] Aug, Fibromyalgia M79.7 ; Obesity E66.9 ; Personal history of alcoholism F10.[address] [facility] [address] [facility] [id number] [address] [place] [address] Aug, [facility] [address] [facility] [id number] [address] [place] [address] Jul, [facility] [address] [facility] [id number] [address] [place] [address] Jun, [facility] [address] [facility] [id number] [address] [place] [address] Jun, [facility] [address] [facility] [id number] [address] [place] [address] May, [facility] [address] [place] [id number] [address] [place] [address] May, Fibromyalgia M79.7 ; Obesity E66.[address] [facility] [address] [place] [id number] [address] [place] [address] May, [facility] [address] [place] [id number] [place] [address] May, Fibromyalgia M79.7 ; Persona l history of alcoholism F10.21 ; Insomnia G47.[address] [facility] [address] [place] [id number] [place] [address] Apr, [facility] [address] [place] [id number] [place] [address] Apr, Fibromyalgia M79.7 ; Obesity E66.9 ; Insomnia G47.00 ; Personal history of alcoholism F10.21 and Frequent falls R29.6 [facility] [address] [address] Apr, Obesity E66.9 ; Fibromyalgia M79.[address] [facility] [address] [place] [id number] [address] [place] [address] Mar, [facility] [address] [place] [id number] [place] [address] Mar, [facility] [address] [place] [id number] [address] [place] [address] Mar, [facility] [address] [place] [id number] [place] [address] Mar, Obesity E66.9 ; Fibromyalgia M79.7 and Personal history of alcoholism F10.21 [facility] [address] [place] [id number] [address] [place] [address] Feb, [facility] [address] [place] [id number] [place] [address] Feb, Other malaise and fatigue 78 0.79 ; Abnormal weight gain 783.[address] [facility] [address] [id number] [address] [place] [address] Jan, [facility] [address] [facility] [id number] [address] [place] [address] Dec, [facility] [address] [facility] [id number] [address] [place] [address] Dec, Fibromyalgia 729.1 and Abnor mal weight gain 783.1 [place] [address] [facility] [id number] [address] [place] [address] Dec, Unspecified myalgia and myos itis 729.1 ; Abnormal weight gain 783.1 and Fibromyalgia 729.1 [place] [address] [facility] [id number] [address] [place] [address] Nov, [facility] [address] [id number] [address] [place] [address] Nov, Other malaise and fatigue 78 0.79 ; Unspecified myalgia and myositis 729.1 and Abnormal weight gain 783.1 [place] [address] [facility] [id number] [address] [place] [address] Nov, [place] [address] [facility] [id number] [address] [place] [address] Nov, [facility] [address] [id number] [address] [place] [address] October, [facility] [address] [facility] [id number] [address] [place] [address] October, Unspecified myalgia and myos itis 729.[address] [facility] [address] [facility] [id number] [address] [place] [address] October, [facility] [address] [id number] [address] [place] [address], [place] [address] 14 Sep, 2014 [facility] [address] [id number] [address] [place] [address], [place] [address] 13 Sep, 2014 [facility] [address] [id number] [address] [place] [address], [place] [address] 17 Aug, 2014 [facility] [address] [id number] [address] [place] [address], [place] [address] 17 Aug, 2014 [facility] [address] [id number] [address] [place] [address], [place] [address] 17 Aug, 2014 [facility] [address] [id number] [address] [place] [address], [place] [address] 17 Aug, 2014 [facility] [address] [id number] [address] [place] [address], [place] [address] 12 Aug, 2014 [facility] [address] [id number] [address] [place] [address], [place] [address] 12 Aug, 2014 [facility] [address] [id number] [address] [place] [address], [place] [address] 11 Aug, 2014 [facility] [address] [id number] [address] [place] [address], [place] [address] 11 Aug, 2014 [facility] [address] [id number] [address] [place] [address], [place] [address] 10 Aug, 2014 [facility] [address] [id number] [address] [place] [address], [place] [address] 10 Aug, 2014 [facility] [address] [id number] [address] [place] [address], [place] [address] May, [facility] [address] [id number] [address] [place] [address], [place] [address] May, [facility] [address] [id number] [address] [place] [address], [place] [address] Mar, [facility] [address] [id number] [address] [place] [address], [place] [address] Mar, [facility] [address] [id number] [address] [place] [address], [place] [address] Feb, [facility] [address] [id number] [address] [place] [address], [place] [address] Feb, [facility] [address] [id number] [address] [place] [address], [place] [address] Feb, [facility] [address] [id number] [address] [place] [address], [place] [address] Feb, [facility] [address] [id number] [address] [place] [address], [place] [address] October, [facility] [address] [id number] [address] [place] [address], [place] [address] October, [facility] [address] [id number] [address] [place] [address], [place] [address] October, [facility] [address] [id number] [address] [place] [address], [place] [address] October, [facility] [address] [id number] [address] [place] [address], [place] [address] Sep, [facility] [address] [id number] [address] [place] [address], [place] [address] Sep, [facility] [address] [id number] [address] [place] [address], [place] [address] Sep, [facility] [address] [id number] [address] [place] [address], [place] [address] Sep, [facility] [address] [id number] [address] [place] [address], [place] [id number] Jul, [facility] [address] [id number] [address] [place] [address], [place] [id number] Jul, [facility] [address] [id number] [address] [place] [address], [place] [id number] Jun, [facility] [address] [id number] [address] [address] Jun, [facility] [address] [facility] [id number] [address] [place] [id number] May, [facility] [address] [facility] [id number] [address] [place] [id number] May, IMMUNIZATIONS No Known Immunizations SOCIAL HISTORY Never Assessed REASON FOR VISIT PLAN OF CARE VITAL SIGNS Height 64 in 2014-02-23 Weight 208.2 lbs 2014-02-23 Temperature 97.6 degrees Fahrenheit 2014-02-23 Heart Rate 68 bpm 2014-02-23 Respiratory Rate 16 2014-02-23 Blood pressure systolic 120 mmHg 2014-02-23 Blood pressure diastolic 72 mmHg 2014-02-23 MEDICATIONS Unknown Medications RESULTS No Results PROCEDURES No Known procedures INSTRUCTIONS MEDICATIONS ADMINISTERED No Known Medications MEDICAL (GENERAL) HISTORY Type Description Date Medical History fibromyalgia Medical History insomnia Medical History obesity Surgical History ganglion cyst removal 1996 Surgical History section 2003 Hospitalization History surgeries
--- OUTSIDE RECORDS SUMMARY | 2020-01-12 19:58 | XMS REPORT ---
Author Author Nani Ritter Organization [facility] Address [address] [place] [address] Care Team Providers Care Parent Partner Name Role Phone HENRI Ritter Unavailable PROBLEMS Type Condition ICD9-CM Code [id number] Code Onset Dates Condition S tatus SNOMED Code Problem Fibromyalgia M79.7 Active 9258138 7 Problem Personal history of alcoholism F10.21 Active 866662755 Problem Low back pain M54.5 Active 191909 009 Problem Sinusitis J32.9 Active 29293686 Problem Obesity E66.9 Active 103884688 Problem Insomnia G47.00 Active 542407561 Problem Chronic pain syndrome G89.4 Active 844083702 Problem Other chronic pain G89.29 Active 8 [id number] ALLERGIES No Information ENCOUNTERS Encounter Location Date Diagnosis [facility] [address] [facility] [id number] [address] [place] [id number] 13 Jul, 2019 Flank pain R10.9 and Hematur ia, unspecified type R31.9 [facility] [address] [facility] [id number] [address] [place] [phone] 13 Jul, 2019 Fibromyalgia M79.7 and Strai n of lumbar region, initial encounter S39.012A [facility] [address] [facility] [id number] [address] [place] [address] Jun, Strain of lumbar region, ini tial encounter S39.012A [facility] [address] [facility] [id number] [address] [place] [address] Jun, [facility] [address] [facility] [id number] [address] [place] [phone] 17 Jun, 2019 Strain of lumbar region, ini tial encounter S39.012A and Fibromyalgia M79.7 [facility] [address] [facility] [id number] [address] [place] [address] Apr, Fibromyalgia M79.7 [facility] [address] [place] [id number] [address] [place] [address] Feb, Fibromyalgia M79.7 [facility] [address] [place] [id number] [address] [place] [address] Dec, Fibromyalgia M79.7 [facility] [address] [place] [id number] [address] [place] [address] October, Fibromyalgia M79.7 [facility] [address] [place] [id number] [place] [address] Sep, Fibromyalgia M79.7 [facility] [address] [place] [id number] [place] [address] Jul, Fibromyalgia M79.7 [facility] [address] [place] [id number] [place] [address] Jun, Sinusitis J32.9 and BMI 40.0 -44.9, adult Z68.41 [facility] [address] [address] 12 Mar, 2018 Fibromyalgia M79.7 ; Muscle spasm M62.838 and BMI 40.0-44.9, adult Z68.41 [facility] [address] [address] Mar, [facility] [address] [place] [id number] [place] [address] Dec, Fibromyalgia M79.7 ; Low gerson k pain M54.5 ; Other chronic pain G89.29 and BMI 45.0-49.9, adult Z68.42 [facility] [address] [place] [id number] [address] [place] [address] Nov, [facility] [address] [facility] [id number] [address] [place] [address] Aug, Fibromyalgia M79.7 and BMI 5 0.0-59.9, adult Z68.43 [facility] [address] [facility] [id number] [address] [place] [address] Aug, [facility] [address] [facility] [id number] [address] [place] [address] Aug, [facility] [address] [facility] [id number] [address] [place] [phone] Jul, [facility] [address] [facility] [id number] [address] [place] [address] Jul, Insomnia G47.00 [facility] [address] [facility] [id number] [address] [place] [address] Jul, [facility] [address] [facility] [id number] [address] [place] [phone] Jul, [facility] [address] [facility] [id number] [address] [place] [address] Jul, [facility] [address] [facility] [id number] [address] [place] [address] Jul, Fibromyalgia M79.7 [facility] [address] [facility] [id number] [address] [place] [address] Jul, [facility] [address] [facility] [id number] [address] [place] [address] Jun, Chronic pain syndrome G89.4 and Fibromyalgia M79.7 [facility] [address] [facility] [id number] [address] [place] [address] Jun, Fibromyalgia M79.7 [facility] [address] [facility] [id number] [address] [place] [address] Jun, Bronchitis J40 ; Fibromyalgi a M79.7 ; Lumbago with sciatica, left side M54.42 ; Lumbago with sciatica, right side M54.41 ; Other chronic pain G89.29 and BMI 45.0-49.9, adult Z68.42 [facility] [address] [facility] [id number] [address] [place] [address] Jun, Influenza-like illness R69 [facility] [address] [facility] [id number] [address] [place] [address] Jun, [facility] [address] [facility] [id number] [address] [place] [address] Jun, Fibromyalgia M79.7 [facility] [address] [place] [id number] [address] [place] [address] May, Fibromyalgia M79.7 [facility] [address] [place] [id number] [address] [place] [address] Apr, Insomnia G47.00 [facility] [address] [place] [id number] [address] [place] [address] Apr, [facility] [address] [place] [id number] [address] [place] [address] Apr, [facility] [address] [place] [id number] [address] [place] [address] Apr, Fibromyalgia M79.7 [facility] [address] [place] [id number] [address] [place] [phone] 16 Mar, 2017 Encounter for immunization Z 23 [facility] [address] [place] [id number] [address] [place] [address] 10 Mar, 2017 Visit for TB skin test Z11.1 [facility] [address] [facility] [id number] [address] [place] [phone] 04 Mar, 2017 Fibromyalgia M79.7 [facility] [address] [place] [id number] [address] [place] [address] 12 Feb, 2017 Fibromyalgia M79.7 [facility] [address] [place] [id number] [address] [place] [phone] 11 Feb, 2017 [facility] [address] [place] [id number] [address] [place] [address] Feb, Fibromyalgia M79.7 [facility] [address] [id number] [address] [place] [address], [place] [address] Jan, Fibromyalgia M79.7 ; Obesity E66.9 ; Insomnia G47.00 and Chronic pain syndrome G89.4 [facility] [address] [id number] [address] [place] [address], [place] [address] Jan, [facility] [address] [id number] [address] [place] [address], [place] [address] Jan, [facility] [address] [id number] [address] [place] [address], [place] [address] Dec, [facility] [address] [id number] [address] [place] [address], [place] [address] Dec, [facility] [address] [id number] [address] [place] [address], [place] [address] Dec, [facility] [address] [id number] [address] [place] [address] Nov, Chronic pain syndrome G89.4 [facility] [address] [id number] [address] [place] [address], [place] [address] October, Chronic pain syndrome G89.4 [facility] [address] [id number] [address] [place] [address], [place] [address] October, Chronic pain syndrome G89.4 [facility] [address] [id number] [address] [place] [address], [place] [address] October, [facility] [address] [id number] [address] [place] [phone] October, Chronic pain syndrome G89.4 [facility] [address] [id number] [address] [place] [address], [place] [address] October, Chronic pain syndrome G89.4 and Fibromyalgia M79.7 [facility] [address] [id number] [address] [place] [address] October, Fibromyalgia M79.7 and Chron ic pain syndrome G89.4 [place] [id number] [address] Sep, Encounter for immunization Z 23 [place] [address] [id number] 13 Sep, 2016 [place] [address] [address] Sep, [place] [address] [address] Aug, Fibromyalgia M79.7 and Insom christo G47.00 [place] [address] [address] Aug, Obesity E66.9 ; Snoring R06. 83 ; Fibromyalgia M79.7 ; Insomnia G47.00 and Screening cholesterol level Z13.220 [place] [address] [address] Aug, Fibromyalgia M79.7 [place] [address] [address] Jul, Obesity E66.9 ; Personal his tory of alcoholism F10.21 and Fibromyalgia M79.7 [place] [address] [address] Jul, [place] [address] [address] Jun, Obesity E66.9 ; Chronic pain syndrome G89.4 ; Fibromyalgia M79.7 ; Insomnia G47.00 and Wellness examination Z00.00 [place] [address] [address] Jun, Personal history of alcoholi sm F10.21 and Chronic pain syndrome G89.4 [place] [address] [address] Jun, [place] [address] [place] [address] Jun, Fibromyalgia M79.7 [facility] [address] [id number] [address] [place] [address] May, Fibromyalgia M79.7 [facility] [address] [facility] [id number] [address] [place] [address] May, [facility] [address] [facility] [id number] [address] [place] [address] Apr, Obesity E66.9 ; Fibromyalgia M79.7 ; Insomnia G47.00 and Personal history of alcoholism F10.21 [facility] [address] [id number] [address] [place] [address] Apr, [facility] [address] [facility] [id number] [address] [place] [address] Apr, [facility] [address] [facility] [id number] [address] [place] [address] Mar, [facility] [address] [id number] [address] [place] [address] Mar, [facility] [address] [facility] [id number] [address] [place] [address] Feb, [facility] [address] [facility] [id number] [address] [place] [address] Jan, [facility] [address] [facility] [id number] [address] [place] [address] Dec, Obesity E66.9 ; Fibromyalgia M79.7 ; Personal history of alcoholism F10.21 and Insomnia G47.00 [facility] [address] [id number] [address] [place] [address] Dec, Chronic pain syndrome G89.4 [facility] [address] [facility] [id number] [address] [place] [address] Dec, [facility] [address] [facility] [id number] [address] [place] [address] Dec, [facility] [address] [facility] [id number] [address] [place] [address] Nov, [facility] [address] [facility] [id number] [address] [place] [address] Nov, [facility] [address] [facility] [id number] [address] [place] [address] Nov, Fibromyalgia M79.7 ; Obesity E66.9 ; Personal history of alcoholism F10.21 ; Insomnia G47.00 and Chronic pain syndrome G89.4 [facility] [address] [facility] [id number] [address] [place] [address] Nov, Fibromyalgia M79.7 [facility] [address] [facility] [id number] [address] [place] [address] October, Fibromyalgia M79.7 [facility] [address] [facility] [id number] [address] [place] [address] October, Obesity E66.9 ; Fibromyalgia M79.7 ; Personal history of alcoholism F10.21 and Insomnia G47.00 [facility] [address] [facility] [id number] [address] [place] [address] Sep, [facility] [address] [facility] [id number] [address] [place] [address] Aug, Fibromyalgia M79.7 ; Obesity E66.9 ; Personal history of alcoholism F10.21 and Insomnia G47.00 [facility] [address] [facility] [id number] [address] [place] [address] Aug, [facility] [address] [facility] [id number] [address] [place] [id number] Jul, [facility] [address] [facility] [id number] [address] [place] [address] Jun, [facility] [address] [facility] [id number] [address] [place] [address] Jun, [facility] [address] [facility] [id number] [address] [place] [address] May, [facility] [address] [place] [id number] [address] [place] [address] May, Fibromyalgia M79.7 ; Obesity E66.9 and Insomnia G47.00 [facility] [address] [place] [id number] [address] [place] [address] May, [facility] [address] [place] [id number] [place] [address] May, Fibromyalgia M79.7 ; Persona l history of alcoholism F10.21 ; Insomnia G47.00 and Obesity E66.9 [facility] [address] [place] [id number] [place] [address] Apr, [facility] [address] [place] [id number] [place] [address] Apr, Fibromyalgia M79.7 ; Obesity E66.9 ; Insomnia G47.00 ; Personal history of alcoholism F10.21 and Frequent falls R29.6 [facility] [address] [address] Apr, Obesity E66.9 ; Fibromyalgia M79.7 and Insomnia G47.00 [facility] [address] [place] [id number] [address] [place] [address] Mar, [facility] [address] [place] [id number] [place] [phone] Mar, [facility] [address] [place] [id number] [address] [place] [address] Mar, [facility] [address] [place] [id number] [place] [address] Mar, Obesity E66.9 ; Fibromyalgia M79.7 and Personal history of alcoholism F10.21 [facility] [address] [place] [id number] [address] [place] [address] Feb, [facility] [address] [place] [id number] [place] [address] Feb, Other malaise and fatigue 78 0.79 ; Abnormal weight gain 783.1 and Fibromyalgia 729.1 [facility] [address] [id number] [address] [place] [address] Jan, [facility] [address] [facility] [id number] [address] [place] [address] Dec, [facility] [address] [facility] [id number] [address] [place] [address] Dec, Fibromyalgia 729.1 and Abnor mal weight gain 783.1 [place] [address] [facility] [id number] [address] [place] [address] Dec, Unspecified myalgia and myos itis 729.1 ; Abnormal weight gain 783.1 and Fibromyalgia 729.1 [place] [address] [facility] [id number] [address] [place] [address] Nov, [facility] [address] [id number] [address] [place] [address] Nov, Other malaise and fatigue 78 0.79 ; Unspecified myalgia and myositis 729.1 and Abnormal weight gain 783.1 [place] [address] [facility] [id number] [address] [place] [address] Nov, [place] [address] [facility] [id number] [address] [place] [address] Nov, [facility] [address] [id number] [address] [place] [address] October, [facility] [address] [facility] [id number] [address] [place] [address] October, Unspecified myalgia and myos itis 729.1 and Scabies 133.0 [facility] [address] [facility] [id number] [address] [place] [address] October, [facility] [address] [id number] [address] [place] [address], [place] [address] 14 Sep, 2014 [facility] [address] [id number] [address] [place] [address], [place] [address] 13 Sep, 2014 [facility] [address] [id number] [address] [place] [address], [place] [address] 17 Aug, 2014 [facility] [address] [id number] [address] [place] [address], [place] [address] 17 Aug, 2014 [facility] [address] [id number] [address] [place] [address], [place] [address] 17 Aug, 2014 [facility] [address] [id number] [address] [place] [address], [place] [address] 17 Aug, 2014 [facility] [address] [id number] [address] [place] [address], [place] [address] 12 Aug, 2014 [facility] [address] [id number] [address] [place] [address], [place] [address] 12 Aug, 2014 [facility] [address] [id number] [address] [place] [address], [place] [address] 11 Aug, 2014 [facility] [address] [id number] [address] [place] [address], [place] [address] 11 Aug, 2014 [facility] [address] [id number] [address] [place] [address], [place] [address] 10 Aug, 2014 [facility] [address] [id number] [address] [place] [address], [place] [address] 10 Aug, 2014 [facility] [address] [id number] [address] [place] [address], [place] [address] May, [facility] [address] [id number] [address] [place] [address], [place] [address] May, [facility] [address] [id number] [address] [place] [address], [place] [address] Mar, [facility] [address] [id number] [address] [place] [address], [place] [address] Mar, [facility] [address] [id number] [address] [place] [address], [place] [address] Feb, [facility] [address] [id number] [address] [place] [address], [place] [address] Feb, [facility] [address] [id number] [address] [place] [address], [place] [address] Feb, [facility] [address] [id number] [address] [place] [address], [place] [address] Feb, [facility] [address] [id number] [address] [place] [address], [place] [address] October, [facility] [address] [id number] [address] [place] [address], [place] [address] October, [facility] [address] [id number] [address] [place] [address], [place] [address] October, [facility] [address] [id number] [address] [place] [address], [place] [address] October, [facility] [address] [id number] [address] [place] [address], [place] [address] Sep, [facility] [address] [id number] [address] [place] [address], [place] [address] Sep, [facility] [address] [id number] [address] [place] [address], [place] [address] Sep, [facility] [address] [id number] [address] [place] [address], [place] [address] Sep, [facility] [address] [id number] [address] [place] [address], [place] [address] Jul, [facility] [address] [id number] [address] [place] [address], [place] [address] Jul, [facility] [address] [id number] [address] [place] [address], [place] [id number] Jun, [facility] [address] [id number] [address] [address] Jun, [facility] [address] [facility] [id number] [address] [place] [phone] May, [facility] [address] [facility] [id number] [address] [place] [id number] May, IMMUNIZATIONS No Known Immunizations SOCIAL HISTORY Never Assessed REASON FOR VISIT PLAN OF CARE VITAL SIGNS Height 64 in 2014-05-18 Weight 208.9 lbs 2014-05-18 Temperature 97.8 degrees Fahrenheit 2014-05-18 Heart Rate 76 bpm 2014-05-18 Respiratory Rate 20 2014-05-18 Blood pressure systolic 104 mmHg 2014-05-18 Blood pressure diastolic 68 mmHg 2014-05-18 MEDICATIONS Unknown Medications RESULTS No Results PROCEDURES No Known procedures INSTRUCTIONS MEDICATIONS ADMINISTERED No Known Medications MEDICAL (GENERAL) HISTORY Type Description Date Medical History fibromyalgia Medical History insomnia Medical History obesity Surgical History ganglion cyst removal 1996 Surgical History section 2003 Hospitalization History surgeries
--- OUTSIDE RECORDS SUMMARY | 2020-01-12 19:58 | XMS REPORT ---
Author Author [employer]. [facility] [place] [facility] [place] [facility] Address [address] [place] [address] Care Team Providers Care Sales Trainee Name Role Phone ARAUJO, MARY Unavailable Unavailable VAZQUEZ RODRIGUEZ Unavailable Unavailable ARAUJO, MARY Unavailable [facility] Unavailable HUBER MARLEY Unavailable Unavailable [facility] Unavailable ARAUJO, MARY Unavailable ARAUJO, MARY Unavailable ARAUJO, MARY Unavailable ARAUJO, MARY Unavailable ARAUJO, MARY Unavailable ARAUJO, MARY Unavailable ARAUJO, MARY Unavailable ARAUJO, MARY Unavailable ARAUJO, MARY Unavailable [facility] Unavailable zzSANDERS, MARY Unavailable JUSTIN, BRANDI Unavailable JUSTIN, BRANDI Unavailable zzVAN, MARY Unavailable HUBER MARLEY Unavailable HUBER MARLEY Unavailable Luis, AMRY Unavailable CARSON COX Unavailable HUBER MARLEY Unavailable JEAN STINSON Unavailable HUBER MARLEY Unavailable HUERTER, HUBER Unavailable HUERTER, HUBER Unavailable HUERTER, HUBER Unavailable HUERTER, HUBER Unavailable RadhaCANDIDAMARY Unavailable HUERTER, HUBER Unavailable HUERTER, HUBER Unavailable HUERTER, HUBER Unavailable HUERTER, HUBER Unavailable HUERTER, HUBER Unavailable ERTER, HUBER Unavailable HUERTER, HUBER Unavailable CARYN SCHMIDT Unavailable HUERTER, HUBER Unavailable HUERTER, HUBER Unavailable ERTER, HUBER Unavailable ERTER, HUBER Unavailable HUERTER, HUBER Unavailable Migration, Doctor Unavailable Unavailable Migration, Doctor Unavailable Unavailable zzSANCHEZ, HENRI Unavailable zzSANCHEZ, HENRI Unavailable zzSANCHEZ, HENRI Unavailable zzSANCHEZ, HENRI Unavailable zzSANCHEZ, HENRI Unavailable KOBYDELIA HUBER Zaira Unavailable Unavailable Unavailable Unavailable zzSANCHEZ, HENRI Unavailable zzSANCHEZ, HENRI Unavailable zzHEIMJESSA SHAFFER Unavailable zzSANCHEZ, HENRI Unavailable zzSANCHEZ, HENRI Unavailable zzSANCHEZ, HENRI Unavailable zzSANCHEZ, HENRI Unavailable ADALBERTO SYLVESTER DO Unavailable Unavailable Unavailable Unavailable Unavailable Unavailable Unavailable Unavailable Unavailable Unavailable Unavailable Unavailable Allergies The data below is from unstructured sourcesNo Known Allergies No Known Allergies No Known Allergies No Known Allergies No Known Allergies No Known Allergies No Known Allergies No Known Allergies No Known Allergies Unknown Allergies Unknown Allergies No Known Allergies No Known Allergies No Known Allergies No Known Allergies No Known Allergies No Known Allergies No Known Allergies No Known Allergies No Known Allergies No Known Allergies No Known Allergies No Known Allergies No Known Allergies No Known Allergies No Known Allergies No Known Allergies No Known Allergies No Known Allergies No Known Allergies No Known Allergies No Known Allergies No Known Allergies No Known Allergies No Known Allergies No Known Allergies No Known Allergies No Known Allergies No Known Allergies No Known Allergies No Known Allergies No Information No Information No Information No Information No Information No Information No Information No Information No Information No Information No Information No Information No Information No Information No Information No Information No Information No Information No Information No Information No Information No Information No Information No Information No Information No Information No Information No Information No Information No Information No Information No Information No Information No Information No Information No Information No Information No Information No Information No Information No Information No Information No Information No Information No Information No Information No Information No Information No Information No Information No Information No Information Encounters Encounter Date Encounter Type Encounter Diagnosis Care Provider Facility Start: Emergency department ADALBERTO SYLVESTER [facility] 01-12-2020 patient visit [facility] Start: Patient encounter HUBER [facility] 01-03-2020 procedure Center [facility] Start: Telephone encounter HUBER GRAYKATELYN [facility] [place] 08-25-2019 Start: Patient encounter HUBER [facility] 07-28-2019 procedure [facility] Unspecified abdominal [facility] 07-28-2019 CARE pain CARE Start: Telephone encounter Fibromyalgia HUBER GRAYKATELYN [facility] [place] 07-28-2019 Start: Telephone encounter Strain of muscleHUBERKAYLEENKATELYN [facility] 07-15-2019 fascia and tendon of lower back, initial encounter Start: Telephone encounter [facility] 07-14-2019 Start: [facility] Strain of muscle HUBER GRAY KATELYN [facility] 07-01-2019 fascia and tendon of lower back, initial encounter Start: Telephone encounter Fibromyalgia HUBER MARLEY [facility] [place] 04-21-2019 Start: Telephone encounter Fibromyalgia HUBER MARINAKATELYN [facility] [place] 03-02-2019 Start: Telephone encounter Fibromyalgia HUBER MARLEY [facility] [place] 01-05-2019 Start: Telephone encounter Fibromyalgia HUBER MARLEY [facility] [place] 11-03-2018 End: 11-03-2018 Start: Telephone encounter Fibromyalgia HUBER MARLEY [facility] [place] 09-23-2018 End: 09-23-2018 Start: Telephone encounter Fibromyalgia HUBER MARLEY [facility] [place] 07-23-2018 End: 07-23-2018 Start: Patient encounter HUBER MARLEY [facility] 07-06-2018 procedure [facility] ([id number]) Start: [facility] Chronic sinusitis, HUBER [facility] 07-06-2018 unspecified End: 07-06-2018 Start: [facility] Fibromyalgia HUBER KOBYKAYLEENKATELYN [facility] 03-26-2018 End: 03-26-2018 Start: Telephone encounter HUBER MARLEY [facility] [place] 03-22-2018 End: 03-22-2018 Start: Patient encounter HUBER MARLEY Not Availab le ([id number]) 12-17-2017 procedure Start: Patient encounter HUBER MARLEY [facility] 09-09-2017 procedure Center [facility] ([id number]) Start: Patient encounter HUBER MARLEY [facility] 08-06-2017 procedure [facility] ([id number]) Start: Patient encounter 07-14-2017 procedure Start: Patient encounter HUBER MARLEY [facility] 07-07-2017 procedure Center [facility] ([id number]) Start: Patient encounter 07-03-2017 procedure Start: Patient encounter MARY ARAUJO [facility] 07-02-2017 procedure [facility] ([id number]) Start: Patient encounter JASVIR AMADOR MD Not Av ailable ([id number]) 09-27-2016 procedure Start: Patient encounter JOSE JUAN CABRERA MD Not Avai lable ([id number]) 12-07-2015 procedure Start: Patient encounter MARY ARAUJO Not Avail able ([id number]) 05-17-2015 procedure Patient encounter NA NA Not Available (0000 0) procedure Medical Equipment No Information Goals No Information Immunizations The data below is from unstructured sources No Known ImmunizationsNo immunization records.No immunization records. No Known Immunizations No Known Immunizations No Known Immunizations No Known Immunizations No Known Immunizations No Known Immunizations No Known Immunizations No Known Immunizations No Known Immunizations No Known Immunizations No Known Immunizations No Known Immunizations No Known Immunizations No Known Immunizations No Known Immunizations No Known Immunizations No Known Immunizations No Known Immunizations No Known Immunizations No Known Immunizations No Known Immunizations No Known Immunizations No Known Immunizations No Known Immunizations No Known Immunizations No Known Immunizations No Known Immunizations No Known Immunizations No Known Immunizations No Known Immunizations No Known Immunizations No Known Immunizations No Known Immunizations No Known Immunizations No Known Immunizations No Known Immunizations No Known Immunizations No Known Immunizations No Known Immunizations No Known Immunizations No Known Immunizations No Known Immunizations No Known Immunizations No Known Immunizations No Known Immunizations No Known Immunizations No Known Immunizations No Known Immunizations No Known Immunizations No Known Immunizations No Known Immunizations No Known Immunizations No Known Immunizations No Known Immunizations No Known Immunizations No Known Immunizations No Known Immunizations No Known Immunizations No Known Immunizations No Known Immunizations No Known Immunizations No Known Immunizations No Known Immunizations No Known Immunizations No Known Immunizations No Known Immunizations No Known Immunizations No Known Immunizations Interventions No Information Medications Medication Drug Dates Sig Sig (Original) Class(es) (Normalized) naproxen 500 mg oral Nonsteroid Start: take 1 tablet Nap roxen 500 mg take 1 tablet by Oral tablet al 08-22-2014 by mouth twice route 2 gloria es per day with food for (1 source) Anti-infla daily at pain. take with food. Aug, mmatory mealtime for Active Drug pain Payers No Information Plan of Treatment The data below is from unstructured sources Discharge Date 09/27/16 1:21am Disposition 01 HOME, SELF-CARE Condition at Discharge Improved Instructions/Education Provided Migr jessica Headache (DC) Prescriptions See Medication Section Referrals [facility] Order Date: Primary Care Physician Address: [address] [place] [address] Additional Instructions/Education Al l discharge instructions reviewed with patient and/or family. Voiced understanding. You may take ibuprofen or Tylenol as needed for pain. Drink plenty of fluids. Follow-up with your doctor on Thursday for recheck and further evaluation. Return for worse pain, fever, vomiting, weakness, breathing problems, vision or balance problems or other concerns as needed. Activity Details Follow Up 3 Months, prn Reason:fibro Activity Details Follow Up 3 Months Reason:fibromaylg ia Discharge Date 07/03/17 10:02am Disposition 01 HOME, SELF-CARE Condition at Discharge Stable/Unchan ged Instructions/Education Provided Flu, Adult (DC) Prescriptions See Medication Section Referrals [facility] Order Date: Primary Care Physician Address: [facility] [address], [place] [id number] Additional Instructions/Education Al l discharge instructions reviewed with patient and/or family. Voiced understanding. Extra rest. Lots of liquids. Treat temperature greater than 101. At 102.5 ibuprofen will be more effective in the relief of pain and fever. Maximum dose for Tylenol is 4000 mg per day. Maximum dose for ibuprofen is 2400 mg per day. Activity Details Follow Up 3 Months Reason: Activity Details Follow Up prn Reason: Activity Details Follow Up 6 Months Reason: Activity Details Follow Up Reg appt Reason: Problems Problem Problem Date Last Documented Episodic/Chr Provider Classificati Recorded Date onic on Fever of Fever, unspecified Episodic unknown origin (3 sources) Genitourinar Hematuria, unspecified ; Episodic FATOU NA y symptoms Translations: [ - Hematuria, zzSANC HEZ and unspecified type R31.9] Other Phone : ill-defined [phone] conditions 3 (6 sources) Influenza Influenza due to other identified Ep isodic (3 sources) influenza virus with other respiratory manifestations 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 Episodic JASVIR aftercare therapy PERRY FINCH (3 sources) Other Pain in left hand Episodic ALI connective VINCENT-RICA tissue disease (1 source) Other Other muscle spasm ; Translations: Episodic HUBER connective [ - Muscle spasm M62.838] HUERTER tissue Other Phone: disease [phone] (16 sources) 3 Other Diarrhea, unspecified Episodic TIMOTH Y gastrointest PERRY FINCH inal disorders (3 sources) Other Pain in unspecified joint Episodic AL I non-traumati DEBORAH c joint disorders (1 source) Other Body mass index (BMI) 40.0-44.9, Chronic HUBER nutritional; adult ; Translations: [ - BMI HUERT ER endocrine; 40.0-44.9, adult Z68.41] Other Phon e: and [phone] metabolic 3 disorders (20 sources) Other upper Chronic sinusitis, unspecified ; Chronic Doctor respiratory Translations: [Sinusitis] Migration infections (20 sources) Residual Personal history of other Episodic codes; complications of , unclassified childbirth and the puerperi um (3 sources) Sprains and Strain of muscle, fascia and tendon Episodic HENRI strains of lower back, initial encounter ; DeborahEdward (19 sources) Translations: [ - Strain of lumbar Other Phone: region, initial encounter [id number]] Procedures Date Procedure Procedure Detail Performing Cl inician Start: Assay of thyroid HENRI zRenatoVANESSAEdward 08-23-2014 stimulating Other Phone: hormone tsh Start: Blood count HENRI AlbertoVANESSAEdward 08-23-2014 complete auto&auto Other difrntl wbc Start: Collection venous HENRI AlbertoVANESSAEdward 08-23-2014 blood venipuncture Other Start: Comprehensive HENRI AlbertoVANESSAEdward 08-23-2014 metabolic panel Other Phone: Start: Cyanocobalamin HENRI zRenatoVANESSAEdward 08-23-2014 vitamin b-12 Other Phone: Start: Heterophile HENRI AlbertoVANESSAEdward 08-23-2014 antibodies screen Other Phone: Start: Rheumatoid factor HENRI AlbertoVANESSAEdward 08-23-2014 quantitative Other Phone: Results Test Name Value Interpreta Reference Facilit Date tion Range y Time laboratory on 2020-01-12 Anion gap 12 mmol/L Negative 5-14 PENDING [Moles/Vol] mmol/L [facility] 14:40-0 ([id number]) 400 Basophils (Bld) 0.0 10*3/uL Negative 0.0-0.1 PENDING 01-11 [#/Vol] 10*3/uL [facility] 0[facility] N [facility] 14:40-0 ([id number]) 400 Basophils/100 WBC 0 % Negative 0-10 % PENDING 07-30 -2 (Bld) [facility] 020 N S 14:40-0 ([id number]) 400 Calcium [Mass/Vol] 9.9 mg/dL Negative 8.5-10.1 PENDING 07-3 0-2 mg/dL [facility] 020 N S 14:40-0 ([id number]) 400 Chloride [Moles/Vol] 109 mmol/L High 98-107 PENDING 0 7-30-2 mmol/L [facility] 020 N S 14:40-0 ([id number]) 400 CO2 [Moles/Vol] 20 mmol/L Low 21-32 PENDING 07-30-2 mmol/L [facility] 020 N S 14:40-0 ([id number]) 400 Creatinine 0.89 mg/dL Negative 0.60-1.30 PENDING 07-30-2 [Mass/Vol] mg/dL [facility] 020 N S 14:40-0 ([id number]) 400 Creatinine and > Invalid PENDING 01-11-2 Glomerular Interpreta [facility] 020 filtration tion Code N [facility] 14:40-0 rate.predicted panel ([id number]) 400 - Serum, Plasma or Blood CRP [Mass/Vol] 0.25 Negative 0.00-0.50 PENDING 07-30-2 mg/dL [facility] 020 N S 14:40-0 ([id number]) 400 Eosinophils (Bld) 0.0 10*3/uL Negative 0.0-0.3 PENDING 30-2 [#/Vol] 10*3/uL [facility] 020 N S 14:40-0 ([id number]) 400 Eosinophils/100 WBC 0 % Negative 0-10 % PENDING 30-2 (Bld) [facility] 020 N S 14:40-0 ([id number]) 400 Erythrocyte 14.0 % Negative 10.0-14.5 PENDING 30-2 distribution width % [facility] 020 (RBC) [Ratio] N S 14:40-0 ([id number]) 400 Glucose [Mass/Vol] 157 mg/dL High 70-105 PENDING 07-3 0-2 mg/dL [facility] 020 N S 14:40-0 ([id number]) 400 Hematocrit (Bld) 40 % Negative 35-52 % PENDING 2 [Volume fraction] [facility] 020 [facility] 14:40-0 ([id number]) 400 Hemoglobin (Bld) 13.6 g/dL Negative 11.5-16.0 PENDING 01-11- 2 [Mass/Vol] g/dL [facility] 020 [facility] 14:40-0 ([id number]) 400 Lymphocytes (Bld) 0.5 10*3/uL Low 1.0-4.0 PENDING 2 [#/Vol] 10*3 LOC[facility]IO 020 [facility] 14:40-0 ([id number]) 400 Lymphocytes/100 WBC 6 % Low 12-44 % PENDING -2 (Bld) [facility] 020 [facility] 14:40-0 ([id number]) 400 Lymphocytes/100 WBC 2 % Invalid % PENDING 2 (Bld) Interpreta [facility] 020 tion Code [facility] 14:40-0 ([id number]) 400 MCH (RBC) [Entitic 33 pg Negative 25-34 pg PENDING 07-3 0-2 mass] [facility] 14:40-0 ([id number]) 400 MCHC (RBC) 34 g/dL Negative 32-36 g/dL PENDING 01-11-2 [Mass/Vol] LOCATIO 020 [facility] 14:40-0 ([id number]) 400 MCV (RBC) [Entitic 97 Negative 80-99 PENDING -3 0-2 vol] [foz_us] [facility] 14:40-0 ([id number]) 400 Monocytes (Bld) 0.1 10*3/uL Negative 0.0-1.0 PENDING 01-112 [#/Vol] 10*3 LOC[facility] 020 [facility] 14:40-0 ([id number]) 400 Monocytes/100 WBC 1 % Negative 0-12 % PENDING 01-11 -2 (Bld) LOC[facility]IO 020 [facility] 14:40-0 ([id number]) 400 Monocytes/100 WBC 2 % Invalid % PENDING 01-112 (Bld) Interpreta LOC[facility]I 020 tion Code [facility] 14:40-0 ([id number]) 400 Neutrophils (Bld) 6.8 10*3/uL Negative 1.8-7.8 PENDING [#/Vol] 10*3 [facility] 020 N [facility] 14:40-0 ([id number]) 400 Neutrophils/100 WBC 93 % High 42-75 % PENDING (Bld) [facility] 020 N S 14:40-0 ([id number]) 400 Platelet mean volume 9.1 Negative 7.4-10.4 PENDING (Bld) [Entitic vol] [foz_us] [facility] 020 N [facility] 14:40-0 ([id number]) 400 Platelets (Bld) 347 10*3/uL Negative 130-400 PENDING 01-11 [#/Vol] 10*3/uL [facility] 020 N [facility] 14:40-0 ([id number]) 400 Potassium 3.6 mmol/L Negative 3.6-5.0 PENDING [Moles/Vol] mmol/L [facility] 020 N [facility] 14:40-0 ([id number]) 400 RBC (Bld) [#/Vol] 4.07 10*6/uL Low 4.35-5.85 PENDING 10*6/uL [facility] 020 N [facility] 14:40-0 ([id number]) 400 RBC morphology NORMAL Invalid PENDING finding Nom (Bld) Interpreta LOC[facility] 020 tion Code N [facility] 14:40-0 ([id number]) 400 Segmented 96 % Invalid % PENDING neutrophils/100 WBC Interpreta LOCATIO 020 (Bld) tion Code N [facility] 14:40-0 (65556) 400 Sodium [Moles/Vol] 141 mmol/L Negative 135-145 PENDING mmol/L [facility] 020 N [facility] 14:40-0 ([id number]) 400 Urea nitrogen 13 mg/dL Negative 7-18 mg/dL PENDING [Mass/Vol] LOCATIO 020 N S 14:40-0 ([id number]) 400 Urea 15 mg/mg Invalid PENDING nitrogen/Creatinine Interpreta [facility] 020 [Mass ratio] tion Code N [facility] 14:40-0 ([id number]) 400 WBC (Bld) [#/Vol] 7.3 10*3/uL Negative 4.3-11.0 PENDING 10*3/uL [facility] 020 N [facility] 14:40-0 ([id number]) 400 laboratory on 2016-09-06 Albumin [Mass/Vol] 4.2 g/dL Invalid 3.5-5.5 Not 03-2 5-2 Interpreta g/dL Avail[facility] 017 tion Code le 09:41-0 ([id number]) 400 Albumin/Globulin 1.6 {ratio} Invalid 1.2-2.2 Not 03-2 5-2 [Mass ratio] Interpreta Availab 017 tion Code le 09:41-0 (70386) 400 ALP [Catalytic 60 U/L Invalid 39-117 Not 09-06-2 activity/Vol] Interpreta IU/L Availab 017 tion Code le 09:41-0 ([id number]) 400 ALT [Catalytic 13 U/L Invalid 0-32 IU/L Not 09-06-2 activity/Vol] Interpreta Availab 017 tion Code le 11:23-0 ([id number]) 400 AST [Catalytic 11 U/L Invalid 0-40 IU/L Not 09-06-2 activity/Vol] Interpreta Availab 017 tion Code le 09:41-0 ([id number]) 400 Basophils (Bld) 0.0 10*3/uL Invalid 0.0-0.2 Not 09-06 -2 [#/Vol] Interpreta x10E3/uL Availab 017 tion Code le 08:18-0 (13242) 400 Basophils/100 WBC 0 % Invalid % Not 09-06 -2 (Bld) Interpreta Availab 017 tion Code le 08:18-0 ([id number]) 400 Bilirubin [Mass/Vol] 0.3 mg/dL Invalid 0.0-1.2 Not -2 Interpreta mg/dL Availab 017 tion Code le 09:41-0 ([id number]) 400 Calcium [Mass/Vol] 9.7 mg/dL Invalid 8.7-10.2 Not 03-2 5-2 Interpreta mg/dL Availab 017 tion Code le 09:41-0 ([id number]) 400 Chloride [Moles/Vol] 100 mmol/L Invalid 96-106 Not 0 3-25-2 Interpreta mmol/L Availab 017 tion Code le 09:11-0 ([id number]) 400 Cholesterol 208 mg/dL High 100-199 Not 25-2 [Mass/Vol] mg/dL Availab 017 le 09:41-0 (90403) 400 Cholesterol in HDL 61 mg/dL Invalid >39 mg/dL Not 03-2 5-2 [Mass/Vol] Interpreta Availab 017 tion Code le 09:41-0 (64271) 400 Cholesterol in LDL 124 mg/dL High 0-99 mg/dL Not -2 [Mass/Vol] Availab 017 le 09:41-0 (57961) 400 Cholesterol in VLDL 23 mg/dL Invalid 5-40 mg/dL Not -2 [Mass/Vol] Interpreta Availab 017 tion Code le 09:41-0 (94650) 400 CO2 [Moles/Vol] 24 mmol/L Invalid 18-29 Not 09-06-2 Interpreta mmol/L Avail[facility] 017 tion Code le 09:41-0 (05415) 400 Creatinine 0.92 mg/dL Invalid 0.57-1.00 Not 09-06-2 [Mass/Vol] Interpreta mg/dL Avail[facility] 017 tion Code le 09:41-0 (49719) 400 Eosinophils (Bld) 0.6 10*3/uL High 0.0-0.4 Not -2 [#/Vol] x10E3/uL Avail[facility] 017 le 08:18-0 (51760) 400 Eosinophils/100 WBC 7 % Invalid % Not (Bld) Interpreta Availab 017 tion Code le 08:18-0 (81778) 400 Erythrocyte 13.5 % Invalid 12.3-15.4 Not distribution width Interpreta % Availab 017 (RBC) [Ratio] tion Code le 08:18-0 (26882) 400 GFR/1.73 sq 91 mL/min/{1.73_m2} Invalid >59 Not 0 25-2 M.predicted among Interpreta mL/min/1.7 Avail[facility] 017 blacks MDRD tion Code 3 le 09:41-0 (S/P/Bld) [Vol (09090) 400 rate/Area] GFR/1.73 sq 79 mL/min/{1.73_m2} Invalid >59 Not 0 3-25-2 M.predicted among Interpreta mL/min/1.7 Avail[facility] 017 non-blacks MDRD tion Code 3 le 09:41-0 (S/P/Bld) [Vol (91901) 400 rate/Area] Globulin (S) 2.6 g/dL Invalid 1.5-4.5 Not 03-25-2 [Mass/Vol] Interpreta g/dL Avail[facility] 017 tion Code le 09:41-0 (14904) 400 Glucose [Mass/Vol] 93 mg/dL Invalid 65-99 Not 03-2 5-2 Interpreta mg/dL Avail[facility] 017 tion Code le 09:41-0 (97977) 400 Hematocrit (Bld) 37.5 % Invalid 34.0-46.6 Not 25- 2 [Volume fraction] Interpreta % Availab 017 tion Code le 08:18-0 (84545) 400 Hemoglobin (Bld) 12.8 g/dL Invalid 11.1-15.9 Not 0325- 2 [Mass/Vol] Interpreta g/dL Avail[facility] 017 tion Code le 08:18-0 (08922) 400 Immature 0.0 10*3/uL Invalid 0.0-0.1 Not 0325-2 granulocytes (Bld) Interpreta x10E3/uL Avail[facility] 017 [#/Vol] tion Code le 08:18-0 (68932) 400 Immature 0 % Invalid % Not 0325-2 granulocytes/100 WBC Interpreta Availab 017 (Bld) tion Code le 08:18-0 (87279) 400 Lymphocytes (Bld) 2.3 10*3/uL Invalid 0.7-3.1 Not 25-2 [#/Vol] Interpreta x10E3/uL Availab 017 tion Code le 08:18-0 (85319) 400 Lymphocytes/100 WBC 29 % Invalid % Not 03- 25-2 (Bld) Interpreta Availab 017 tion Code le 08:18-0 (25910) 400 MCH (RBC) [Entitic 32.8 pg Invalid 26.6-33.0 Not 03-2 5-2 mass] Interpreta pg Availab 017 tion Code le 08:18-0 (00797) 400 MCHC (RBC) 34.1 g/dL Invalid 31.5-35.7 Not [Mass/Vol] Interpreta g/dL Availab 017 tion Code le 08:18-0 (86729) 400 MCV (RBC) [Entitic 96 fL Invalid 79-97 fL Not 08-14 5-2 vol] Interpreta Availab 017 tion Code le 08:18-0 (61881) 400 Monocytes (Bld) 0.4 10*3/uL Invalid 0.1-0.9 Not 09-06 [#/Vol] Interpreta x10E3/uL Avail[facility] 017 tion Code le 08:18-0 (31062) 400 Monocytes/100 WBC 5 % Invalid % Not 09-06 (Bld) Interpreta Availab 017 tion Code le 08:18-0 (21776) 400 Neutrophils (Bld) 4.9 10*3/uL Invalid 1.4-7.0 Not [#/Vol] Interpreta x10E3/uL Availab 017 tion Code le 08:18-0 (98493) 400 Neutrophils/100 WBC 59 % Invalid % Not (Bld) Interpreta Availab 017 tion Code le 08:18-0 (26989) 400 Platelets (Bld) 337 10*3/uL Invalid 150-379 Not 09-06 [#/Vol] Interpreta x10E3/uL Availab 017 tion Code le 08:18-0 (02721) 400 Potassium 4.2 mmol/L Invalid 3.5-5.2 Not [Moles/Vol] Interpreta mmol/L Avail[facility] 017 tion Code le 09:41-0 (36699) 400 Protein [Mass/Vol] 6.8 g/dL Invalid 6.0-8.5 Not 08-14- Interpreta g/dL Avail[facility] 017 tion Code le 09:41-0 (64108) 400 RBC (Bld) [#/Vol] 3.90 10*6/uL Invalid 3.77-5.28 Not Interpreta x10E6/uL Availab 017 tion Code le 08:18-0 (12462) 400 Sodium [Moles/Vol] 139 mmol/L Invalid 134-144 Not 03- 25-2 Interpreta mmol/L Avail[facility] 017 tion Code le 09:11-0 (00187) 400 Triglyceride 117 mg/dL Invalid 0-149 Not [Mass/Vol] Interpreta mg/dL [facility]ail[facility] 017 tion Code le 09:41-0 (54556) 400 TSH Qn 1.870 Invalid 0.450-4.50 Not Interpreta 0 uIU/mL [facility] 017 tion Code le 09:32-0 (94102) 400 Urea nitrogen 19 mg/dL Invalid 6-20 mg/dL Not 09-06-2 [Mass/Vol] Interpreta Availab 017 tion Code le 09:41-0 (30578) 400 Urea 21 mg/mg High 8-20 Not nitrogen/Creatinine Avail[facility] 017 [Mass ratio] le 09:41-0 (33728) 400 WBC (Bld) [#/Vol] 8.1 10*3/uL Invalid 3.4-10.8 Not Interpreta x10E3/uL Availab 017 tion Code le 08:18-0 (83258) 400 Social History No Information Vital Signs Date Time Vital Sign Value Performing Clinician Facil ity 03-26-2018 Body height 162.56 cm [facility] alth 12: Other Phone: [facility] [place] () 03-26-2018 Body mass index 44.59 kg/m2 [facility] 12: (BMI) [Ratio] Other Phone: [facility] () 03-26-2018 Body temperature 97.4 [degF] [facility] 12:00040 Other Phone: [facility] ([id number]) 03-26-2018 Body weight 117.85 kg [facility] 12: Other Phone: [facility] ([id number]) 08-22-2014 Body height 162.56 [facility] 16:29-0400 Other Phone: [facility] ([id number]) 08-22-2014 Body temperature 97.9 [degF] [facility] 16:0 Other Phone: [facility] ([id number]) 08-22-2014 Body weight 101.79 kg [facility] 16:290400 Other Phone: [facility] ([id number]) 05-18-2014 Body height 162.56 cm [facility] 10:310500 Other Phone: [facility] ([id number]) 05-18-2014 Body temperature 97.8 [degF] [facility] 10:0500 Other Phone: [facility] ([id number]) 05-18-2014 Body weight 94.76 kg [facility] 10:310500 Other Phone: [facility] ([id number]) 02-23-2014 Body height 162.56 cm [facility] 11:0400 Other Phone: [facility] ([id number]) 02-23-2014 Body temperature 97.6 [degF] [facility] 11:0400 Other Phone: [facility] ([id number]) 02-23-2014 Body weight 94.44 kg [facility] 11:230400 Other Phone: [facility] ([id number]) 10-11-2013 Body height 162.56 cm JESSA Arce [facility] 12:560400 Other Phone: [facility] ([id number]) 10-11-2013 Body temperature 98.6 [degF] JESSA Arce [facility] 12:56-0400 Other Phone: [facility] ([id number]) 10-11-2013 Body weight 107.5 kg [facility] 12:56-0400 Other Phone: [facility] ([id number]) 08-03-2013 Body height 162.56 cm [facility] 12:03-0500 Other Phone: [facility] ([id number]) 08-03-2013 Body weight 113.63 kg [facility] 12:03-0500 Other Phone: [facility] ([id number]) 07-15-2013 Body height 162.56 cm [facility] 10:55-0500 Other Phone: [facility] ([id number]) 07-15-2013 Body temperature 98.1 [degF] [facility] 10:55-0500 Other Phone: [facility] ([id number]) 07-15-2013 Body weight 113.63 kg [facility] 10:55-0500 Other Phone: [facility] ([id number]) Functional Status The data below is from unstructured sources Query Response Date Kevin rded Patient Orientation Person Place Time Situation September 26, 2016 10:43pm Comprehension Ability Understands Co ncepts September 26, 2016 10:43pm Mental Status No Information Summary Purpose eClinicalWorks SubmissioneClinicalWorks SubmissioneClinicalWorks SubmissioneClinicalWorks SubmissioneClinicalWorks SubmissioneClinicalWorks SubmissioneClinicalWorks SubmissioneClinicalWorks SubmissioneClinicalWorks SubmissioneClinicalWorks SubmissioneClinicalWorks SubmissioneClinicalWorks SubmissioneClinicalWorks SubmissioneClinicalWorks SubmissioneClinicalWorks SubmissioneClinicalWorks SubmissioneClinicalWorks SubmissioneClinicalWorks SubmissioneClinicalWorks SubmissioneClinicalWorks SubmissioneClinicalWorks SubmissioneClinicalWorks SubmissioneClinicalWorks Submission Advance Directives Directive Response Recor ded Date/Time Advance Directives No 10:43pm Resuscitation Status Full Code 09/26/16 10:43pm Directive Response Recor ded Date/Time Advance Directives No 2:04pm Resuscitation Status Full Code 10/28/14 2:04pm Directive Response Recor ded Date/Time Advance Directives No 10:43pm Discharge Instructions No hospital discharge instruction information available.No hospital discharge instructions.No hospital discharge instruction information available. Additional Source Comments This clinical document has been generated using [employer] software that has been certified by the Office of the National Coordinator for Health Information Technology (ONC 15.99.04.3023.Diam.[id number]) and the National Committee for Junior Programmer (NCQA, as an eMeasure certified technology). FOR RECORDS PERTAINING TO PATIENTS WHO ARE OR HAVE BEEN ENROLLED IN A CHEMICAL D EPENDENCY/SUBSTANCE ABUSE PROGRAM, SOME INFORMATION MAY BE OMITTED. This clinica l summary was aggregated from multiple sources. Caution should be exercised in using it in the provision of clinical care. This summary normalizes information from multiple sources, and as a consequence, information in this document may ma terially change the coding, format and clinical context of patient data. In nhung tion, data may be omitted in some cases. CLINICAL DECISIONS SHOULD BE BASED ON T HE PRIMARY CLINICAL RECORDS. [employer]. provides no warranty or guara ntee of the accuracy or completeness of information in this document.The followi ng information is based on time limited clinical information UNRECOGNIZED CONTENT PROVIDED BELOW FOR UNRECOGNIZED SECTION REASON FOR VISIT Pain management (chronic)-Romy [place]- not what she made appt for Alcira VIEIRA fibromyalgia is severe right now- pain from shoulder blades down to finger tips- numb for 2 weeks Alcira VIEIRA skin feels hot like sunburn from head to toe KP age DARIEL , cant get warm Alcira VIEIRA Medication funhovryCBU-RdqMQO-Ack
--- OUTSIDE RECORDS SUMMARY | 2020-01-12 19:58 | XMS REPORT ---
Author Author Nani Ritter Organization [facility] Address [address] [place] [address] Care Team Providers Care Farmer Vegetable Name Role Phone HENRI Ritter Unavailable PROBLEMS Type Condition ICD9-CM Code IDE69-GL Code Onset Dates Condition S tatus SNOMED Code Problem Fibromyalgia M79.7 Active 7315866 7 Problem Personal history of alcoholism F10.21 Active 866702197 Problem Low back pain M54.5 Active 164231 009 Problem Sinusitis J32.9 Active 62916953 Problem Obesity E66.9 Active 716939286 Problem Insomnia G47.00 Active 970983715 Problem Chronic pain syndrome G89.4 Active 185041345 Problem Other chronic pain G89.29 Active 8 [id number] ALLERGIES No Information ENCOUNTERS Encounter Location Date Diagnosis [facility] [address] [facility] [id number] [address] [place] [address] 13 Jul, 2019 Flank pain R10.9 and Hematur ia, unspecified type R31.9 [place] [address] [address] 13 Jul, 2019 Fibromyalgia M79.7 and Strain of lumbar region, initial encounter S39.012A [facility] [address] [address] Jun, Strain of lumbar region, initial encount er S39.012A [facility] [address] [address] Jun, [facility] [address] [address] Jun, Strain of lumbar region, initial encount er S39.012A and Fibromyalgia M79.[address] [place] [address] Apr, Fibromyalgia M79.7 [facility] [address] [address] Feb, Fibromyalgia M79.7 [facility] [address] [address] Dec, Fibromyalgia M79.7 [facility] [address] [address] October, Fibromyalgia M79.7 [facility] [address] [address] Sep, Fibromyalgia M79.7 [facility] [address] [address] Jul, Fibromyalgia M79.7 [facility] [address] [address] Jun, Sinusitis J32.9 and BMI 40.0-44.9, adult Z68.41 [facility] [address] [address] 12 Mar, 2018 Fibromyalgia M79.7 ; Muscle spasm M62.83 8 and BMI 40.0-44.9, adult Z68.41 [place] [address] [address] Mar, [facility] [address] [address] 05 Dec, 2017 Fibromyalgia M79.7 ; Low back pain M54.5 ; Other chronic pain G89.29 and BMI 45.0-49.9, adult Z68.42 [facility] [address] [address] Nov, [facility] [address] [facility] [id number] [address] [place] [address] Aug, Fibromyalgia M79.7 and BMI 5 0.0-59.9, adult Z68.43 [facility] [address] [address] Aug, [facility] [address] [address] Aug, [facility] [address] [address] Jul, [facility] [address] [address] Jul, Insomnia G47.00 [facility] [address] [address] Jul, [facility] [address] [address] Jul, [facility] [address] [address] Jul, [facility] [address] [address] Jul, Fibromyalgia M79.7 [facility] [address] [address] Jul, [facility] [address] [address] Jun, Chronic pain syndrome G89.4 and Fibromya lgia M79.7 [place] [address] [address] Jun, Fibromyalgia M79.7 [facility] [address] [address] Jun, Bronchitis J40 ; Fibromyalgia M79.7 ; Malaika mbago with sciatica, left side M54.42 ; Lumbago with sciatica, right side M54.41 ; Other chronic pain G89.29 and BMI 45.0-49.9, adult Z68.42 [facility] [address] [facility] [id number] [address] [place] [address] Jun, Influenza-like illness R69 [facility] [address] [address] Jun, [facility] [address] [address] Jun, Fibromyalgia M79.7 [facility] [address] [address] May, Fibromyalgia M79.7 [facility] [address] [address] Apr, Insomnia G47.00 [facility] [address] [address] Apr, [facility] [address] [address] Apr, [facility] [address] [address] Apr, Fibromyalgia M79.7 [facility] [address] [address] Mar, Encounter for immunization Z23 [place] [address] [address] Mar, Visit for TB skin test Z11.1 [place] [address] [address] Mar, Fibromyalgia M79.7 [facility] [address] [address] Feb, Fibromyalgia M79.7 [facility] [address] [address] Feb, [facility] [address] [address] Feb, Fibromyalgia M79.7 [facility] [address] [address] Jan, Fibromyalgia M79.7 ; Obesity E66.9 ; Ins omnia G47.00 and Chronic pain syndrome G89.4 [facility] [address] [address] Jan, [facility] [address] [place] [id number] [place] [address] Jan, [facility] [address] [place] [id number] [place] [address] Dec, [facility] [address] [address] Dec, [facility] [address] [address] Dec, [facility] [address] [address] Nov, Chronic pain syndrome G89.4 [facility] [address] [address] October, Chronic pain syndrome G89.4 [facility] [address] [address] October, Chronic pain syndrome G89.4 [facility] [address] [address] October, [facility] [address] [address] October, Chronic pain syndrome G89.4 [facility] [address] [address] October, Chronic pain syndrome G89.4 and Fibromya lgia M79.7 [facility] [address] [address] October, Fibromyalgia M79.7 and Chronic pain synd mariposa G89.4 [facility] [address] [address] Sep, Encounter for immunization Z23 [facility] [address] [address] Sep, [facility] [address] [address] Sep, [facility] [address] [address] Aug, Fibromyalgia M79.7 and Insomnia G47.00 [place] [address] [address] Aug, Obesity E66.9 ; Snoring R06.83 ; Fibromy algia M79.7 ; Insomnia G47.00 and Screening cholesterol level Z13.220 [place] [address] [address] Aug, Fibromyalgia M79.7 [place] [address] [address] Jul, Obesity E66.9 ; Personal history of alco holism F10.21 and Fibromyalgia M79.7 [place] [address] [address] Jul, [place] [address] [address] Jun, Obesity E66.9 ; Chronic pain syndrome G8 9.4 ; Fibromyalgia M79.7 ; Insomnia G47.00 and Wellness examination Z00.00 [place] [address] [address] Jun, Personal history of alcoholism F10.21 an d Chronic pain syndrome G89.4 [place] [address] [address] Jun, [place] [address] [address] Jun, Fibromyalgia M79.7 [place] [address] [address] May, Fibromyalgia M79.7 [place] [address] [address] May, [place] [address] [address] Apr, Obesity E66.9 ; Fibromyalgia M79.7 ; Ins omnia G47.00 and Personal history of alcoholism F10.21 [facility] [address] [address] Apr, [facility] [address] [address] Apr, [facility] [address] [address] Mar, [facility] [address] [address] Mar, [facility] [address] [address] Feb, [facility] [address] [address] Jan, [facility] [address] [address] Dec, Obesity E66.9 ; Fibromyalgia M79.7 ; Per carlitos history of alcoholism F10.21 and Insomnia G47.00 [facility] [address] [address] Dec, Chronic pain syndrome G89.4 [facility] [address] [address] Dec, [facility] [address] [address] Dec, [facility] [address] [address] Nov, [facility] [address] [address] Nov, [facility] [address] [address] Nov, Fibromyalgia M79.7 ; Obesity E66.9 ; Per carlitos history of alcoholism F10.21 ; Insomnia G47.00 and Chronic pain syndrome G89.4 [facility] [address] [address] Nov, Fibromyalgia M79.7 [facility] [address] [address] October, Fibromyalgia M79.7 [place] [address] [address] October, Obesity E66.9 ; Fibromyalgia M79.7 ; Per carlitos history of alcoholism F10.21 and Insomnia G47.00 [facility] [address] [address] Sep, [facility] [address] [address] Aug, Fibromyalgia M79.7 ; Obesity E66.9 ; Per carlitos history of alcoholism F10.21 and Insomnia G47.00 [place] [address] [address] Aug, [place] [address] [address] Jul, [place] [address] [address] Jun, [place] [address] [address] Jun, [place] [address] [address] May, [facility] [address] [address] May, Fibromyalgia M79.7 ; Obesity E66.9 and I nsomnia G47.00 [facility] [address] [address] May, [place] [address] [address] May, Fibromyalgia M79.7 ; Personal history of alcoholism F10.21 ; Insomnia G47.00 and Obesity E66.9 [facility] [address] [address] Apr, [place] [address] [address] Apr, Fibromyalgia M79.7 ; Obesity E66.9 ; Ins omnia G47.00 ; Personal history of alcoholism F10.21 and Frequent falls R29.6 [place] [address] [address] Apr, Obesity E66.9 ; Fibromyalgia M79.7 and I nsomnia G47.00 [place] [address] [address] Mar, [place] [address] [address] Mar, [place] [address] [address] Mar, [place] [address] [address] Mar, Obesity E66.9 ; Fibromyalgia M79.7 and P ersonal history of alcoholism F10.21 [place] [address] [address] Feb, [place] [address] [address] Feb, Other malaise and fatigue 780.79 ; Abnor mal weight gain 783.1 and Fibromyalgia 729.1 [place] [address] [address] Jan, [place] [address] [address] Dec, [place] [address] [address] Dec, Fibromyalgia 729.1 and Abnormal weight g ain 783.1 [place] [address] [address] Dec, Unspecified myalgia and myositis 729.1 ; Abnormal weight gain 783.1 and Fibromyalgia 729.1 [facility] [id number] [place] [address] Nov, [facility] [address] [address] Nov, Other malaise and fatigue 780.79 ; Unspe cified myalgia and myositis 729.1 and Abnormal weight gain 783.1 [facility] [address] [place] [address] [id number] [place] [address] Nov, [facility] [address] [address] Nov, [facility] [address] [address] October, [facility] [address] [address] October, Unspecified myalgia and myositis 729.1 a nd Scabies 133.0 [facility] [address] [address] [id number] [place] [address] October, [facility] [address] [address] Sep, [facility] [address] [address] Sep, [facility] [address] [address] Aug, [facility] [address] [place] [address] [id number] [place] [address] Aug, [facility] [address] [address] Aug, [facility] [address] [address] Aug, [facility] [address] [address] Aug, [facility] [address] [place] [address] 12 Aug, 2014 [facility] [address] [facility] [place] [address] Aug, [facility] [address] [facility] [place] [address] Aug, [facility] [address] [facility] [place] [address] Aug, [facility] [address] [facility] [place] [address] Aug, [facility] [address] [facility] [place] [address] May, [facility] [address] [facility] [place] [address] May, [facility] [address] [id number] [place] [address] Mar, [facility] [address] [facility] [place] [address] Mar, [facility] [address] [facility] [place] [address] Feb, [facility] [address] [facility] [place] [address] Feb, [facility] [address] [facility] [place] [address] Feb, [facility] [address] [facility] [place] [address] Feb, [facility] [address] [facility] [place] [address] October, [facility] [address] [facility] [place] [address] October, [facility] [address] [facility] [place] [address] October, [facility] [address] [facility] [place] [address] October, [facility] [address] [facility] [place] [address] Sep, [facility] [address] [facility] [place] [address] Sep, [facility] [address] [facility] [place] [address] Sep, [facility] [address] [facility] [place] [address] Sep, [facility] [address] [id number] [place] [address] Jul, [facility] [id number] [place] [address] Jul, [facility] [id number] [place] [address] Jun, [facility] [address] [facility] [place] [address] Jun, [facility] [id number] [place] [address] May, [facility] [address] [facility] [place] [address] May, IMMUNIZATIONS No Known Immunizations SOCIAL HISTORY Never Assessed REASON FOR VISIT PLAN OF CARE VITAL SIGNS Height 64 in 2013-08-03 Weight 250.5 lbs 2013-08-03 Heart Rate 78 bpm 2013-08-03 Respiratory Rate 18 2013-08-03 Blood pressure systolic 114 mmHg 2013-08-03 Blood pressure diastolic 84 mmHg 2013-08-03 MEDICATIONS Unknown Medications RESULTS No Results PROCEDURES No Known procedures INSTRUCTIONS MEDICATIONS ADMINISTERED No Known Medications MEDICAL (GENERAL) HISTORY Type Description Date Medical History fibromyalgia Medical History insomnia Medical History obesity Surgical History ganglion cyst removal 1996 Surgical History section 2004 Hospitalization History surgeries
--- OUTSIDE RECORDS SUMMARY | 2020-01-12 19:59 | XMS REPORT ---
Author Author Nani Ritter Organization [facility] Address [address] [place] [address] Care Team Providers Care Manager Resort Name Role Phone HENRI Ritter Unavailable PROBLEMS Type Condition ICD9-CM Code UCC18-XO Code Onset Dates Condition S tatus SNOMED Code Problem Fibromyalgia M79.7 Active 1339573 7 Problem Personal history of alcoholism F10.21 Active 674701355 Problem Low back pain M54.5 Active 406751 009 Problem Sinusitis J32.9 Active 72070201 Problem Obesity E66.9 Active 112277184 Problem Insomnia G47.00 Active 187999908 Problem Chronic pain syndrome G89.4 Active 281734470 Problem Other chronic pain G89.29 Active 8 [id number] ALLERGIES No Information ENCOUNTERS Encounter Location Date Diagnosis [facility] [address] [facility] [id number] [address] [place] [address] 13 Jul, 2019 Flank pain R10.9 and Hematur ia, unspecified type R31.9 [place] [address] [address] 13 Jul, 2019 Fibromyalgia M79.7 and Strain of lumbar region, initial encounter S39.012A [facility] [address] [address] Jun, Strain of lumbar region, initial encount er S39.012A [facility] [address] [address] Jun, [facility] [address] [address] Jun, Strain of lumbar region, initial encount er S39.012A and Fibromyalgia M79.[address] [place] [address] Apr, Fibromyalgia M79.7 [facility] [address] [address] Feb, Fibromyalgia M79.7 [facility] [address] [address] Dec, Fibromyalgia M79.7 [facility] [address] [address] October, Fibromyalgia M79.7 [facility] [address] [address] Sep, Fibromyalgia M79.7 [facility] [address] [address] Jul, Fibromyalgia M79.7 [facility] [address] [address] Jun, Sinusitis J32.9 and BMI 40.0-44.9, adult Z68.41 [facility] [address] [address] 12 Mar, 2018 Fibromyalgia M79.7 ; Muscle spasm M62.83 8 and BMI 40.0-44.9, adult Z68.41 [place] [address] [address] Mar, [facility] [address] [address] 05 Dec, 2017 Fibromyalgia M79.7 ; Low back pain M54.5 ; Other chronic pain G89.29 and BMI 45.0-49.9, adult Z68.42 [facility] [address] [address] Nov, [facility] [address] [facility] [id number] [address] [place] [address] Aug, Fibromyalgia M79.7 and BMI 5 0.0-59.9, adult Z68.43 [facility] [address] [address] Aug, [facility] [address] [address] Aug, [facility] [address] [address] Jul, [facility] [address] [address] Jul, Insomnia G47.00 [facility] [address] [address] Jul, [facility] [address] [address] Jul, [facility] [address] [address] Jul, [facility] [address] [address] Jul, Fibromyalgia M79.7 [facility] [address] [address] Jul, [facility] [address] [address] Jun, Chronic pain syndrome G89.4 and Fibromya lgia M79.7 [place] [address] [address] Jun, Fibromyalgia M79.7 [facility] [address] [address] Jun, Bronchitis J40 ; Fibromyalgia M79.7 ; Malaika mbago with sciatica, left side M54.42 ; Lumbago with sciatica, right side M54.41 ; Other chronic pain G89.29 and BMI 45.0-49.9, adult Z68.42 [facility] [address] [facility] [id number] [address] [place] [address] Jun, Influenza-like illness R69 [facility] [address] [address] Jun, [facility] [address] [address] Jun, Fibromyalgia M79.7 [facility] [address] [address] May, Fibromyalgia M79.7 [facility] [address] [address] Apr, Insomnia G47.00 [facility] [address] [address] Apr, [facility] [address] [address] Apr, [facility] [address] [address] Apr, Fibromyalgia M79.7 [facility] [address] [address] Mar, Encounter for immunization Z23 [place] [address] [address] Mar, Visit for TB skin test Z11.1 [place] [address] [address] Mar, Fibromyalgia M79.7 [facility] [address] [address] Feb, Fibromyalgia M79.7 [facility] [address] [address] Feb, [facility] [address] [address] Feb, Fibromyalgia M79.7 [facility] [address] [address] Jan, Fibromyalgia M79.7 ; Obesity E66.9 ; Ins omnia G47.00 and Chronic pain syndrome G89.4 [facility] [address] [address] Jan, [facility] [address] [place] [id number] [place] [address] Jan, [facility] [address] [place] [id number] [place] [address] Dec, [facility] [address] [address] Dec, [facility] [address] [address] Dec, [facility] [address] [address] Nov, Chronic pain syndrome G89.4 [facility] [address] [address] October, Chronic pain syndrome G89.4 [facility] [address] [address] October, Chronic pain syndrome G89.4 [facility] [address] [address] October, [facility] [address] [address] October, Chronic pain syndrome G89.4 [facility] [address] [address] October, Chronic pain syndrome G89.4 and Fibromya lgia M79.7 [facility] [address] [address] October, Fibromyalgia M79.7 and Chronic pain synd mariposa G89.4 [facility] [address] [address] Sep, Encounter for immunization Z23 [facility] [address] [address] Sep, [facility] [address] [address] Sep, [facility] [address] [address] Aug, Fibromyalgia M79.7 and Insomnia G47.00 [place] [address] [address] Aug, Obesity E66.9 ; Snoring R06.83 ; Fibromy algia M79.7 ; Insomnia G47.00 and Screening cholesterol level Z13.220 [place] [address] [address] Aug, Fibromyalgia M79.7 [place] [address] [address] Jul, Obesity E66.9 ; Personal history of alco holism F10.21 and Fibromyalgia M79.7 [place] [address] [address] Jul, [place] [address] [address] Jun, Obesity E66.9 ; Chronic pain syndrome G8 9.4 ; Fibromyalgia M79.7 ; Insomnia G47.00 and Wellness examination Z00.00 [place] [address] [address] Jun, Personal history of alcoholism F10.21 an d Chronic pain syndrome G89.4 [place] [address] [address] Jun, [place] [address] [address] Jun, Fibromyalgia M79.7 [place] [address] [address] May, Fibromyalgia M79.7 [place] [address] [address] May, [place] [address] [address] Apr, Obesity E66.9 ; Fibromyalgia M79.7 ; Ins omnia G47.00 and Personal history of alcoholism F10.21 [facility] [address] [address] Apr, [facility] [address] [address] Apr, [facility] [address] [address] Mar, [facility] [address] [address] Mar, [facility] [address] [address] Feb, [facility] [address] [address] Jan, [facility] [address] [address] Dec, Obesity E66.9 ; Fibromyalgia M79.7 ; Per carlitos history of alcoholism F10.21 and Insomnia G47.00 [facility] [address] [address] Dec, Chronic pain syndrome G89.4 [facility] [address] [address] Dec, [facility] [address] [address] Dec, [facility] [address] [address] Nov, [facility] [address] [address] Nov, [facility] [address] [address] Nov, Fibromyalgia M79.7 ; Obesity E66.9 ; Per carlitos history of alcoholism F10.21 ; Insomnia G47.00 and Chronic pain syndrome G89.4 [facility] [address] [address] Nov, Fibromyalgia M79.7 [facility] [address] [address] October, Fibromyalgia M79.7 [place] [address] [address] October, Obesity E66.9 ; Fibromyalgia M79.7 ; Per carlitos history of alcoholism F10.21 and Insomnia G47.00 [facility] [address] [address] Sep, [facility] [address] [address] Aug, Fibromyalgia M79.7 ; Obesity E66.9 ; Per carlitos history of alcoholism F10.21 and Insomnia G47.00 [place] [address] [address] Aug, [place] [address] [address] Jul, [place] [address] [address] Jun, [place] [address] [address] Jun, [place] [address] [address] May, [facility] [address] [address] May, Fibromyalgia M79.7 ; Obesity E66.9 and I nsomnia G47.00 [facility] [address] [address] May, [place] [address] [address] May, Fibromyalgia M79.7 ; Personal history of alcoholism F10.21 ; Insomnia G47.00 and Obesity E66.9 [facility] [address] [address] Apr, [place] [address] [address] Apr, Fibromyalgia M79.7 ; Obesity E66.9 ; Ins omnia G47.00 ; Personal history of alcoholism F10.21 and Frequent falls R29.6 [place] [address] [address] Apr, Obesity E66.9 ; Fibromyalgia M79.7 and I nsomnia G47.00 [place] [address] [address] Mar, [place] [address] [address] Mar, [place] [address] [address] Mar, [place] [address] [address] Mar, Obesity E66.9 ; Fibromyalgia M79.7 and P ersonal history of alcoholism F10.21 [place] [address] [address] Feb, [place] [address] [address] Feb, Other malaise and fatigue 780.79 ; Abnor mal weight gain 783.1 and Fibromyalgia 729.1 [place] [address] [address] Jan, [place] [address] [address] Dec, [place] [address] [address] Dec, Fibromyalgia 729.1 and Abnormal weight g ain 783.1 [place] [address] [address] Dec, Unspecified myalgia and myositis 729.1 ; Abnormal weight gain 783.1 and Fibromyalgia 729.1 [facility] [address] [place] [id number] [place] [address] Nov, [facility] [address] [address] Nov, Other malaise and fatigue 780.79 ; Unspe cified myalgia and myositis 729.1 and Abnormal weight gain 783.1 [facility] [address] [place] [id number] [place] [address] Nov, [facility] [address] [address] Nov, [facility] [address] [address] October, [facility] [address] [address] October, Unspecified myalgia and myositis 729.1 a nd Scabies 133.0 [facility] [address] [place] [id number] [place] [address] October, [facility] [address] [address] Sep, [facility] [address] [address] Sep, [facility] [address] [address] Aug, [facility] [address] [place] [id number] [place] [address] Aug, [facility] [address] [address] Aug, [facility] [address] [address] Aug, [facility] [address] [address] Aug, [facility] [address] [place] [address] 12 Aug, 2014 [facility] [address] [id number] [place] [address] Aug, [facility] [address] [id number] [place] [address] Aug, [facility] [address] [id number] [place] [address] Aug, [facility] [address] [id number] [place] [address] Aug, [facility] [address] [id number] [place] [address] May, [facility] [address] [id number] [place] [address] May, [facility] [address] [id number] [place] [address] Mar, [facility] [address] [id number] [place] [address] Mar, [facility] [address] [id number] [place] [address] Feb, [facility] [address] [id number] [place] [address] Feb, [facility] [address] [id number] [place] [address] Feb, [facility] [address] [id number] [place] [address] Feb, [facility] [address] [id number] [place] [address] October, [facility] [address] [id number] [place] [address] October, [facility] [address] [id number] [place] [address] October, [facility] [address] [id number] [place] [address] October, [facility] [address] [id number] [place] [address] Sep, [facility] [address] [id number] [place] [address] Sep, [facility] [address] [id number] [place] [address] Sep, [facility] [address] [id number] [place] [address] Sep, [facility] [address] [place] [id number] [place] [address] Jul, [facility] [address] [place] [id number] [place] [address] Jul, [facility] [address] [id number] [place] [address] Jun, [facility] [address] [id number] [place] [address] Jun, [facility] [address] [place] [address] [id number] [place] [address] May, [facility] [address] [id number] [place] [address] May, IMMUNIZATIONS No Known Immunizations SOCIAL HISTORY Never Assessed REASON FOR VISIT PLAN OF CARE VITAL SIGNS MEDICATIONS Unknown Medications RESULTS No Results PROCEDURES No Known procedures INSTRUCTIONS MEDICATIONS ADMINISTERED No Known Medications MEDICAL (GENERAL) HISTORY Type Description Date Medical History fibromyalgia Medical History insomnia Medical History obesity Surgical History ganglion cyst removal 1996 Surgical History section 2004 Hospitalization History surgeries
--- OUTSIDE RECORDS SUMMARY | 2020-01-12 19:59 | XMS REPORT ---
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 Role Phone HENRI Ritter Unavailable PROBLEMS Type Condition ICD9-CM Code PSI25-MR Code Onset Dates Condition S tatus SNOMED Code Problem Fibromyalgia M79.7 Active 6623981 7 Problem Personal history of alcoholism F10.21 Active 415677947 Problem Low back pain M54.5 Active 641968 009 Problem Sinusitis J32.9 Active 16438156 Problem Obesity E66.9 Active 782062064 Problem Insomnia G47.00 Active 278423756 Problem Chronic pain syndrome G89.4 Active 016709046 Problem Other chronic pain G89.29 Active 8 [id number] ALLERGIES No Information ENCOUNTERS Encounter Location Date Diagnosis [place] [address] [address] October, Fibromyalgia M79.7 [place] [id number] [address] Sep, Fibromyalgia M79.7 [place] [address] [address] [place] [id number] [address] [place] [address] 08 Jul, 2018 Fibromyalgia M79.7 [facility] [address] [place] [id number] [address] [place] [address] Jun, Sinusitis J32.9 and BMI 40.0 -44.9, adult Z68.41 [place] [address] [address] 12 Mar, 2018 Fibromyalgia M79.7 ; Muscle spasm M62.838 and BMI 40.0-44.9, adult Z68.41 [place] [address] [place] [address] Mar, [facility] [address] [facility] [id number] [address] [place] [address] Dec, Fibromyalgia M79.7 ; Low gerson k pain M54.5 ; Other chronic pain G89.29 and BMI 45.0-49.9, adult Z68.42 [facility] [address] [facility] [id number] [address] [place] [address] Nov, [facility] [address] [facility] [id number] [address] [place] [address] Aug, Fibromyalgia M79.7 and BMI 5 0.0-59.9, adult Z68.43 [facility] [address] [facility] [id number] [address] [place] [address] 27 Aug, 2017 [facility] [address] [place] [id number] [address] [place] [address] Aug, [facility] [address] [place] [id number] [address] [place] [address] Jul, [facility] [address] [place] [id number] [place] [address] Jul, Insomnia G47.00 [facility] [address] [facility] [id number] [address] [place] [address] Jul, [facility] [address] [place] [id number] [address] [place] [address] Jul, [facility] [address] [facility] [id number] [address] [place] [address] Jul, [facility] [address] [place] [id number] [place] [address] Jul, Fibromyalgia M79.7 [facility] [address] [facility] [id number] [address] [place] [address] Jul, [facility] [address] [place] [id number] [place] [address] Jun, Chronic pain syndrome G89.4 and Fibromyalgia M79.7 [facility] [address] [facility] [id number] [address] [place] [address] Jun, Fibromyalgia M79.7 [facility] [address] [facility] [id number] [address] [place] [address] Jun, Bronchitis J40 ; Fibromyalgi a M79.7 ; Lumbago with sciatica, left side M54.42 ; Lumbago with sciatica, right side M54.41 ; Other chronic pain G89.29 and BMI 45.0-49.9, adult Z68.42 [facility] [address] [facility] [id number] [address] [place] [address] Jun, Influenza-like illness R69 [facility] [address] [place] [id number] [address] [place] [address] Jun, [facility] [address] [place] [id number] [address] [place] [address] Jun, Fibromyalgia M79.7 [facility] [address] [place] [id number] [address] [place] [address] May, Fibromyalgia M79.7 [facility] [address] [place] [id number] [address] [place] [address] Apr, Insomnia G47.00 [facility] [address] [place] [id number] [address] [place] [address] Apr, [facility] [address] [place] [id number] [address] [place] [address] Apr, [facility] [address] [place] [id number] [address] [place] [address] 06 Apr, 2017 Fibromyalgia M79.7 [facility] [address] [facility] [id number] [address] [place] [phone] 16 Mar, 2017 Encounter for immunization Z 23 [facility] [address] [place] [id number] [address] [place] [address] Mar, Visit for TB skin test Z11.1 [facility] [address] [id number] [address] [place] [address] Mar, Fibromyalgia M79.7 [facility] [address] [id number] [address] [place] [address] Feb, Fibromyalgia M79.7 [facility] [address] [id number] [address] [place] [address] Feb, [facility] [address] [id number] [address] [place] [phone] Feb, Fibromyalgia M79.7 [facility] [address] [facility] [id number] [address] [place] [address] Jan, Fibromyalgia M79.7 ; Obesity E66.9 ; Insomnia G47.00 and Chronic pain syndrome G89.4 [facility] [address] [facility] [id number] [address] [place] [address] Jan, [facility] [address] [id number] [address] [place] [address] Jan, [facility] [address] [facility] [id number] [address] [place] [address] Dec, [facility] [address] [facility] [id number] [address] [place] [phone] Dec, [facility] [address] [facility] [id number] [address] [place] [address] Dec, [facility] [address] [id number] [address] [place] [address] Nov, Chronic pain syndrome G89.4 [facility] [address] [facility] [id number] [address] [place] [address] October, Chronic pain syndrome G89.4 [facility] [address] [facility] [id number] [address] [place] [address] October, Chronic pain syndrome G89.4 [facility] [address] [place] [id number] [address] [place] [address] October, [facility] [address] [address] October, Chronic pain syndrome G89.4 [facility] [address] [address] October, Chronic pain syndrome G89.4 and Fibromyalgia M79.7 [facility] [address] [address] October, Fibromyalgia M79.7 and Chron ic pain syndrome G89.4 [place] [address] [address] Sep, Encounter for immunization Z 23 [facility] [address] [address] Sep, [facility] [address] [address] Sep, [facility] [address] [address] Aug, Fibromyalgia M79.7 and Insom christo G47.00 [place] [address] [address] Aug, Obesity E66.9 ; Snoring R06. 83 ; Fibromyalgia M79.7 ; Insomnia G47.00 and Screening cholesterol level Z13.220 [facility] [address] [address] Aug, Fibromyalgia M79.7 [facility] [address] [address] Jul, Obesity E66.9 ; Personal his tory of alcoholism F10.21 and Fibromyalgia M79.7 [facility] [address] [address] Jul, [facility] [address] [place] [id number] [address] [place] [address] Jun, Obesity E66.9 ; Chronic pain syndrome G89.4 ; Fibromyalgia M79.7 ; Insomnia G47.00 and Wellness examination Z00.00 [facility] [address] [id number] [address] [place] [address] Jun, Personal history of alcoholi sm F10.21 and Chronic pain syndrome G89.4 [facility] [address] [id number] [address] [place] [address] Jun, [facility] [address] [facility] [id number] [address] [place] [address] Jun, Fibromyalgia M79.7 [facility] [address] [facility] [id number] [address] [place] [address] May, Fibromyalgia M79.7 [facility] [address] [facility] [id number] [address] [place] [address] May, [facility] [address] [facility] [id number] [address] [place] [address] Apr, Obesity E66.9 ; Fibromyalgia M79.7 ; Insomnia G47.00 and Personal history of alcoholism F10.21 [facility] [address] [id number] [address] [place] [address] Apr, [facility] [address] [facility] [id number] [address] [place] [address] Apr, [facility] [address] [facility] [id number] [address] [place] [address] Mar, [facility] [address] [facility] [id number] [address] [place] [phone] Mar, [facility] [address] [facility] [id number] [address] [place] [address] Feb, [facility] [address] [facility] [id number] [address] [place] [address] Jan, [facility] [address] [facility] [id number] [address] [place] [address] Dec, Obesity E66.9 ; Fibromyalgia M79.7 ; Personal history of alcoholism F10.21 and Insomnia G47.00 [facility] [address] [facility] [id number] [address] [place] [address] Dec, Chronic pain syndrome G89.4 [facility] [address] [facility] [id number] [address] [place] [phone] Dec, [facility] [address] [facility] [id number] [address] [place] [address] Dec, [facility] [address] [facility] [id number] [address] [place] [address] Nov, [facility] [address] [facility] [id number] [address] [place] [phone] Nov, [facility] [address] [place] [id number] [address] [place] [address] Nov, Fibromyalgia M79.7 ; Obesity E66.9 ; Personal history of alcoholism F10.21 ; Insomnia G47.00 and Chronic pain syndrome G89.4 [facility] [address] [place] [id number] [address] [place] [address] Nov, Fibromyalgia M79.7 [facility] [address] [place] [id number] [address] [place] [address] October, Fibromyalgia M79.7 [facility] [address] [place] [id number] [address] [place] [address] October, Obesity E66.9 ; Fibromyalgia M79.7 ; Personal history of alcoholism F10.21 and Insomnia G47.00 [facility] [address] [facility] [id number] [address] [place] [address] Sep, [facility] [address] [facility] [id number] [address] [place] [address] Aug, Fibromyalgia M79.7 ; Obesity E66.9 ; Personal history of alcoholism F10.21 and Insomnia G47.00 [facility] [address] [address] Aug, [facility] [address] [address] Jul, [facility] [address] [address] Jun, [facility] [address] [address] Jun, [facility] [address] [address] May, [facility] [address] [address] May, Fibromyalgia M79.7 ; Obesity E66.9 and Insomnia G47.00 [facility] [address] [address] May, [facility] [address] [address] May, Fibromyalgia M79.7 ; Persona l history of alcoholism F10.21 ; Insomnia G47.00 and Obesity E66.9 [place] [address] [address] Apr, [facility] [address] [address] Apr, Fibromyalgia M79.7 ; Obesity E66.9 ; Insomnia G47.00 ; Personal history of alcoholism F10.21 and Frequent falls R29.6 [facility] [address] [address] Apr, Obesity E66.9 ; Fibromyalgia M79.7 and Insomnia G47.00 [facility] [address] [address] Mar, [facility] [address] [place] [address] Mar, [facility] [address] [place] [id number] [address] [place] [address] Mar, [facility] [address] [place] [id number] [place] [address] Mar, Obesity E66.9 ; Fibromyalgia M79.7 and Personal history of alcoholism F10.21 [place] [address] [place] [id number] [place] [address] Feb, [place] [address] [place] [id number] [place] [address] Feb, Other malaise and fatigue 78 0.79 ; Abnormal weight gain 783.1 and Fibromyalgia 729.1 [place] [address] [address] Jan, [place] [address] [address] Dec, [place] [address] [address] Dec, Fibromyalgia 729.1 and Abnor mal weight gain 783.1 [place] [address] [place] [id number] [place] [address] Dec, Unspecified myalgia and myos itis 729.1 ; Abnormal weight gain 783.1 and Fibromyalgia 729.1 [place] [address] [place] [id number] [address] [place] [address] Nov, [place] [address] [place] [id number] [place] [address] Nov, Other malaise and fatigue 78 0.79 ; Unspecified myalgia and myositis 729.1 and Abnormal weight gain 783.1 [place] [address] [address] Nov, [place] [address] [place] [address] [address] Nov, [facility] [address] [id number] [address] [place] [address] October, [facility] [address] [id number] [address] [place] [address] October, Unspecified myalgia and myos itis 729.1 and Scabies 133.0 [facility] [address] [id number] [address] [place] [address], [place] [address] October, [facility] [address] [id number] [address] [place] [address], [place] [address] Sep, [facility] [address] [id number] [address] [place] [address] Sep, [facility] [address] [id number] [address] [place] [address] Aug, [facility] [address] [id number] [address] [place] [address] 17 Aug, 2014 [facility] [address] [id number] [address] [place] [address] Aug, [facility] [address] [id number] [address] [place] [address] Aug, [facility] [address] [id number] [address] [place] [address] Aug, [facility] [address] [id number] [address] [place] [address] Aug, [facility] [address] [id number] [address] [place] [address], [place] [address] Aug, [facility] [address] [id number] [address] [place] [address] Aug, [facility] [address] [id number] [address] [place] [address] Aug, [facility] [address] [id number] [address] [place] [address], [place] [address] Aug, [facility] [address] [id number] [address] [place] [address], [place] [address] May, [facility] [address] [id number] [address] [place] [address], [place] [address] May, [facility] [address] [id number] [address] [place] [address], [place] [address] Mar, [facility] [address] [id number] [address] [place] [address], [place] [address] Mar, [facility] [address] [id number] [address] [place] [address], [place] [address] Feb, [facility] [address] [id number] [address] [place] [address], [place] [address] Feb, [facility] [address] [id number] [address] [place] [address], [place] [address] Feb, [facility] [address] [id number] [address] [place] [address], [place] [address] Feb, [facility] [address] [id number] [address] [place] [address], [place] [address] October, [facility] [address] [id number] [address] [place] [address], [place] [address] October, [facility] [address] [id number] [address] [place] [address], [place] [address] October, [facility] [address] [id number] [address] [place] [address], [place] [address] October, [facility] [address] [id number] [address] [place] [address], [place] [address] Sep, [facility] [address] [id number] [address] [place] [address], [place] [address] Sep, [facility] [address] [id number] [address] [place] [address], [place] [address] Sep, [facility] [address] [facility] [id number] [address] [place] [address] Sep, [facility] [address] [facility] [id number] [address] [place] [address] Jul, [facility] [address] [facility] [id number] [address] [place] [address] Jul, [facility] [address] [facility] [id number] [address] [place] [phone] Jun, [facility] [address] [facility] [id number] [address] [place] [address] Jun, [facility] [address] [facility] [id number] [address] [place] [address] May, [facility] [address] [facility] [id number] [address] [place] [address] May, IMMUNIZATIONS No Known Immunizations SOCIAL HISTORY Never Assessed REASON FOR VISIT PLAN OF CARE VITAL SIGNS MEDICATIONS Unknown Medications RESULTS No Results PROCEDURES Procedure Date Ordered Result Body Site COMPLETE CBC W/AUTO DIFF WBC August 23, 2014 RHEUMATOID FACTOR, QUANT August 23, 2014 HETEROPHILE ANTIBODIES August 23, 2014 ASSAY THYROID STIM HORMONE August 23, 2014 VITAMIN B-12 August 23, 2014 COMPREHEN METABOLIC PANEL August 23, 2014 VENIPUNCT, ROUTINE* August 23, 2014 INSTRUCTIONS MEDICATIONS ADMINISTERED No Known Medications MEDICAL (GENERAL) HISTORY Type Description Date Medical History fibromyalgia Medical History insomnia Medical History obesity Surgical History ganglion cyst removal 1996 Surgical History section 2004 Hospitalization History surgeries
--- OUTSIDE RECORDS SUMMARY | 2020-01-12 19:59 | XMS REPORT ---
Author Author Nani Arce Organization [facility] Address [address] [place] [address] Care Team Providers Care [employer] Weapons Officer Name Role Phone JESSA Arce Unavailable PROBLEMS Type Condition ICD9-CM Code YCU81-AP Code Onset Dates Condition S tatus SNOMED Code Problem Fibromyalgia M79.7 Active 6133008 7 Problem Personal history of alcoholism F10.21 Active 813540849 Problem Low back pain M54.5 Active 333827 009 Problem Sinusitis J32.9 Active 78090190 Problem Obesity E66.9 Active 902617959 Problem Insomnia G47.00 Active 914588457 Problem Chronic pain syndrome G89.4 Active 793173033 Problem Other chronic pain G89.29 Active 8 [id number] ALLERGIES No Information ENCOUNTERS Encounter Location Date Diagnosis [place] [address] [place] [id number] [place] [id number] Dec, Fibromyalgia M79.7 [place] [address] [place] [id number] [place] [phone] October, Fibromyalgia M79.7 [facility] [id number] [place] [id number] Sep, Fibromyalgia M79.7 [facility] [address] [place] [address] [id number] [place] [id number] Jul, Fibromyalgia M79.7 [facility] [id number] [place] [phone] Jun, Sinusitis J32.9 and BMI 40.0 -44.9, adult Z68.41 [facility] [address] [id number] [place] [id number] Mar, Fibromyalgia M79.7 ; Muscle spasm M62.838 and BMI 40.0-44.9, adult Z68.41 [facility] [id number] [place] [id number] Mar, [facility] [id number] [place] [id number] 05 Dec, 2017 Fibromyalgia M79.7 ; Low gerson k pain M54.5 ; Other chronic pain G89.29 and BMI 45.0-49.9, adult Z68.42 [facility] [id number] [place] [id number] 18 Nov, 2017 [facility] [id number] [place] [id number] 28 Aug, 2017 Fibromyalgia M79.7 and BMI 5 0.0-59.9, adult Z68.43 [facility] [address] [address] Aug, [facility] [id number] [place] [phone] Aug, [facility] [address] [address] Jul, [facility] [id number] [place] [id number] Jul, Insomnia G47.00 [facility] [address] [id number] [place] [id number] Jul, [facility] [id number] [place] [id number] Jul, [facility] [id number] [place] [id number] Jul, [facility] [id number] [place] [phone] Jul, Fibromyalgia M79.7 [facility] [id number] [place] [phone] Jul, [facility] [id number] [place] [phone] Jun, Chronic pain syndrome G89.4 and Fibromyalgia M79.7 [facility] [id number] [place] [id number] Jun, Fibromyalgia M79.7 [facility] [address] [address] Jun, Bronchitis J40 ; Fibromyalgi a M79.7 ; Lumbago with sciatica, left side M54.42 ; Lumbago with sciatica, right side M54.41 ; Other chronic pain G89.29 and BMI 45.0-49.9, adult Z68.42 [facility] [id number] [place] [phone] Jun, Influenza-like illness R69 [facility] [address] [id number] Jun, [facility] [id number] [place] [phone] Jun, Fibromyalgia M79.7 [facility] [id number] [place] [id number] May, Fibromyalgia M79.7 [facility] [address] [id number] [place] [id number] Apr, Insomnia G47.00 [facility] [id number] [place] [id number] Apr, [facility] [address] [address] Apr, [facility] [address] [place] [address] [id number] [place] [phone] Apr, Fibromyalgia M79.7 [facility] [address] [address] Mar, Encounter for immunization Z 23 [facility] [address] [id number] [address] [place] [id number] 10 Mar, 2017 Visit for TB skin test Z11.1 [facility] [address] [id number] [address] [place] [id number] 04 Mar, 2017 Fibromyalgia M79.7 [facility] [address] [id number] [address] [place] [id number] Feb, Fibromyalgia M79.7 [facility] [address] [id number] [address] [place] [phone] Feb, [facility] [address] [id number] [address] [place] [phone] Feb, Fibromyalgia M79.7 [facility] [address] [facility] [id number] [address] [place] [id number] Jan, Fibromyalgia M79.7 ; Obesity E66.9 ; Insomnia G47.00 and Chronic pain syndrome G89.4 [facility] [address] [id number] [address] [place] [phone] Jan, [facility] [address] [id number] [address] [place] [id number] Jan, [facility] [address] [facility] [id number] [address] [place] [phone] Dec, [facility] [address] [id number] [address] [place] [phone] Dec, [facility] [address] [id number] [address] [place] [id number] Dec, [facility] [address] [id number] [address] [place] [phone] Nov, Chronic pain syndrome G89.4 [facility] [address] [id number] [address] [place] [id number] October, Chronic pain syndrome G89.4 [facility] [id number] [place] [id number] October, Chronic pain syndrome G89.4 [facility] [id number] [place] [id number] October, [facility] [id number] [place] [id number] October, Chronic pain syndrome G89.4 [facility] [id number] [place] [phone] October, Chronic pain syndrome G89.4 and Fibromyalgia M79.7 [facility] [id number] [place] [phone] October, Fibromyalgia M79.7 and Chron ic pain syndrome G89.4 [facility] [id number] [place] [phone] Sep, Encounter for immunization Z 23 [facility] [address] [address] Sep, [facility] [address] [address] Sep, [facility] [address] [address] Aug, Fibromyalgia M79.7 and Insom christo G47.00 [facility] [address] [address] Aug, Obesity E66.9 ; Snoring R06. 83 ; Fibromyalgia M79.7 ; Insomnia G47.00 and Screening cholesterol level Z13.220 [facility] [address] [id number] Aug, Fibromyalgia M79.7 [facility] [id number] [place] [phone] Jul, Obesity E66.9 ; Personal his tory of alcoholism F10.21 and Fibromyalgia M79.7 [facility] [address] [place] [id number] [place] [id number] Jul, [facility] [address] [facility] [id number] [address] [place] [id number] Jun, Obesity E66.9 ; Chronic pain syndrome G89.4 ; Fibromyalgia M79.7 ; Insomnia G47.00 and Wellness examination Z00.00 [facility] [address] [facility] [id number] [address] [place] [id number] Jun, Personal history of alcoholi sm F10.21 and Chronic pain syndrome G89.4 [facility] [address] [facility] [id number] [address] [place] [id number] Jun, [facility] [address] [facility] [id number] [address] [place] [phone] Jun, Fibromyalgia M79.7 [facility] [address] [facility] [id number] [address] [place] [phone] May, Fibromyalgia M79.7 [facility] [address] [facility] [id number] [address] [place] [phone] May, [facility] [address] [facility] [id number] [address] [place] [id number] Apr, Obesity E66.9 ; Fibromyalgia M79.7 ; Insomnia G47.00 and Personal history of alcoholism F10.21 [facility] [address] [facility] [id number] [address] [place] [id number] Apr, [facility] [address] [facility] [id number] [address] [place] [phone] Apr, [facility] [address] [facility] [id number] [address] [place] [id number] Mar, [facility] [address] [facility] [id number] [address] [place] [phone] Mar, [facility] [address] [facility] [id number] [address] [place] [phone] Feb, [facility] [address] [id number] [address] [place] [id number] Jan, [facility] [address] [id number] [address] [place] [phone] Dec, Obesity E66.9 ; Fibromyalgia M79.7 ; Personal history of alcoholism F10.21 and Insomnia G47.00 [facility] [address] [id number] [address] [place] [id number] Dec, Chronic pain syndrome G89.4 [facility] [address] [id number] [address] [place] [phone] Dec, [facility] [address] [id number] [address] [place] [id number] Dec, [facility] [address] [id number] [address] [place] [phone] Nov, [facility] [address] [facility] [id number] [address] [place] [id number] Nov, [facility] [address] [id number] [address] [place] [id number] Nov, Fibromyalgia M79.7 ; Obesity E66.9 ; Personal history of alcoholism F10.21 ; Insomnia G47.00 and Chronic pain syndrome G89.4 [facility] [address] [facility] [id number] [address] [place] [id number] Nov, Fibromyalgia M79.7 [facility] [address] [id number] [address] [place] [id number] October, Fibromyalgia M79.7 [facility] [address] [facility] [id number] [address] [place] [id number] October, Obesity E66.9 ; Fibromyalgia M79.7 ; Personal history of alcoholism F10.21 and Insomnia G47.00 [facility] [address] [id number] [address] [place] [phone] Sep, [facility] [address] [id number] [address] [place] [phone] Aug, Fibromyalgia M79.7 ; Obesity E66.9 ; Personal history of alcoholism F10.21 and Insomnia G47.00 [facility] [address] [address] Aug, [facility] [id number] [place] [phone] Jul, [facility] [address] [id number] Jun, [facility] [address] [place] [address] [id number] [place] [phone] Jun, [facility] [address] [address] May, [facility] [address] [address] May, Fibromyalgia M79.7 ; Obesity E66.9 and Insomnia G47.00 [facility] [address] [address] May, [facility] [address] [id number] May, Fibromyalgia M79.7 ; Persona l history of alcoholism F10.21 ; Insomnia G47.00 and Obesity E66.9 [place] [address] [address] Apr, [facility] [address] [id number] Apr, Fibromyalgia M79.7 ; Obesity E66.9 ; Insomnia G47.00 ; Personal history of alcoholism F10.21 and Frequent falls R29.6 [facility] [address] [address] Apr, Obesity E66.9 ; Fibromyalgia M79.7 and Insomnia G47.00 [facility] [address] [place] [address] Mar, [facility] [address] [id number] [place] [id number] Mar, [facility] [id number] [place] [phone] Mar, [facility] [address] [id number] Mar, Obesity E66.9 ; Fibromyalgia M79.7 and Personal history of alcoholism F10.21 [facility] [address] [address] [id number] [place] [phone] Feb, [place] [address] [address] Feb, Other malaise and fatigue 78 0.79 ; Abnormal weight gain 783.1 and Fibromyalgia 729.1 [place] [address] [address] Jan, [facility] [address] [id number] Dec, [facility] [address] [address] Dec, Fibromyalgia 729.1 and Abnor mal weight gain 783.1 [place] [address] [address] Dec, Unspecified myalgia and myos itis 729.1 ; Abnormal weight gain 783.1 and Fibromyalgia 729.1 [place] [id number] [place] [id number] Nov, [place] [address] [address] Nov, Other malaise and fatigue 78 0.79 ; Unspecified myalgia and myositis 729.1 and Abnormal weight gain 783.1 [facility] [address] [id number] [address] [place] [phone] Nov, [facility] [address] [id number] [address] [place] [phone] Nov, [facility] [address] [id number] [address] [place] [phone] October, [facility] [address] [id number] [address] [place] [id number] October, Unspecified myalgia and myos itis 729.1 and Scabies 133.0 [facility] [address] [id number] [address] [place] [address], [place] [address] October, [facility] [address] [id number] [address] [place] [phone] Sep, [facility] [address] [id number] [address] [place] [phone] Sep, [facility] [address] [id number] [address] [place] [phone] Aug, [facility] [address] [id number] [address] [place] [phone] Aug, [facility] [address] [id number] [address] [place] [phone] Aug, [facility] [address] [id number] [address] [place] [phone] Aug, [facility] [address] [id number] [address] [place] [id number] Aug, [facility] [address] [id number] [address] [place] [phone] Aug, [facility] [address] [id number] [address] [place] [phone] Aug, [facility] [address] [id number] [address] [place] [phone] Aug, [facility] [address] [id number] [address] [place] [address], [place] [address] Aug, [facility] [address] [id number] [address] [place] [address], [place] [address] Aug, [facility] [address] [id number] [address] [place] [address], [place] [address] May, [facility] [address] [id number] [address] [place] [address], [place] [address] May, [facility] [address] [id number] [address] [place] [address], [place] [address] Mar, [facility] [address] [id number] [address] [place] [address], [place] [address] Mar, [facility] [address] [id number] [address] [place] [address], [place] [address] Feb, [facility] [address] [id number] [address] [place] [address], [place] [address] Feb, [facility] [address] [id number] [address] [place] [address], [place] [address] Feb, [facility] [address] [id number] [address] [place] [address], [place] [address] Feb, [facility] [address] [id number] [address] [place] [address], [place] [id number] October, [facility] [address] [id number] [address] [place] [address], [place] [address] October, [facility] [address] [id number] [address] [place] [address], [place] [address] October, [facility] [address] [id number] [address] [place] [address], [place] [id number] October, [facility] [address] [id number] [address] [place] [address], [place] [address] Sep, [facility] [address] [id number] [address] [place] [address], [place] [address] Sep, [facility] [address] [id number] [address] [place] [phone] Sep, [facility] [address] [id number] [address] [place] [phone] Sep, [facility] [address] [id number] [address] [place] [phone] Jul, [facility] [address] [id number] [address] [place] [id number] Jul, [facility] [address] [id number] [address] [place] [phone] Jun, [facility] [address] [id number] [address] [place] [phone] Jun, [facility] [address] [facility] [id number] [address] [place] [phone] May, [facility] [address] [id number] [address] [place] [phone] May, IMMUNIZATIONS No Known Immunizations SOCIAL HISTORY Never Assessed REASON FOR VISIT PLAN OF CARE VITAL SIGNS Height 64 in 2014-03-01 Weight 206.3 lbs 2014-03-01 Temperature 97 degrees Fahrenheit 2014-03-01 Heart Rate 80 bpm 2014-03-01 Respiratory Rate 18 2014-03-01 Blood pressure systolic 120 mmHg 2014-03-01 Blood pressure diastolic 80 mmHg 2014-03-01 MEDICATIONS Unknown Medications RESULTS No Results PROCEDURES Procedure Date Ordered Result Body Site URINE TEST Mar 01, 2014 INSTRUCTIONS MEDICATIONS ADMINISTERED No Known Medications MEDICAL (GENERAL) HISTORY Type Description Date Medical History fibromyalgia Medical History insomnia Medical History obesity Surgical History ganglion cyst removal 1996 Surgical History section 2004 Hospitalization History surgeries
--- OUTSIDE RECORDS SUMMARY | 2020-01-12 19:59 | XMS REPORT ---
Author Author Nani Arce Organization [facility] Address [address] [place] [address] Care Team Providers Care Blueprint Engineer Name Role Phone JESSA Arce Unavailable PROBLEMS Type Condition ICD9-CM Code [id number] Code Onset Dates Condition S tatus SNOMED Code Problem Personal history of alcoholism F10.21 Active 616170358 Problem Obesity E66.9 Active 742094041 Problem Low back pain M54.5 Active 845861 009 Problem Sinusitis J32.9 Active 69076510 Problem Fibromyalgia M79.7 Active 6727866 7 Problem Insomnia G47.00 Active 389349088 Problem Chronic pain syndrome G89.4 Active 585412515 Problem Other chronic pain G89.29 Active 8 [id number] ALLERGIES No Information ENCOUNTERS Encounter Location Date Diagnosis [facility] [address] [facility] [id number] [address] [place] [address] 13 Jul, 2019 Flank pain R10.9 and Hematur ia, unspecified type R31.9 [facility] [address] [address] 13 Jul, 2019 Fibromyalgia M79.7 and Strain of lumbar region, initial encounter S39.012A [facility] [address] [address] Jun, Strain of lumbar region, initial encount er S39.012A [facility] [address] [address] Jun, [facility] [address] [address] Jun, Strain of lumbar region, initial encount er S39.012A and Fibromyalgia M79.7 [facility] [address] [address] Apr, Fibromyalgia M79.7 [facility] [address] [address] Feb, Fibromyalgia M79.7 [facility] [address] [address] Dec, Fibromyalgia M79.7 [facility] [address] [address] October, Fibromyalgia M79.7 [facility] [address] [address] Sep, Fibromyalgia M79.7 [place] [address] [address] Jul, Fibromyalgia M79.7 [place] [address] [address] Jun, Sinusitis J32.9 and BMI 40.0-44.9, adult Z68.41 [place] [address] [address] 12 Mar, 2018 Fibromyalgia M79.7 ; Muscle spasm M62.83 8 and BMI 40.0-44.9, adult Z68.41 [place] [address] [address] Mar, [place] [address] [address] Dec, Fibromyalgia M79.7 ; Low back pain M54.5 ; Other chronic pain G89.29 and BMI 45.0-49.9, adult Z68.42 [facility] [address] [address] Nov, [facility] [address] [facility] [id number] [address] [place] [address] Aug, Fibromyalgia M79.7 and BMI 5 0.0-59.9, adult Z68.43 [place] [address] [address] Aug, [facility] [address] [address] Aug, [facility] [address] [address] Jul, [facility] [address] [address] Jul, Insomnia G47.00 [facility] [address] [address] Jul, [facility] [address] [address] Jul, [facility] [address] [address] Jul, [facility] [address] [address] Jul, Fibromyalgia M79.7 [facility] [address] [address] Jul, [facility] [address] [address] Jun, Chronic pain syndrome G89.4 and Fibromya lgia M79.7 [place] [address] [address] Jun, Fibromyalgia M79.7 [facility] [address] [address] Jun, Bronchitis J40 ; Fibromyalgia M79.7 ; Malaika mbago with sciatica, left side M54.42 ; Lumbago with sciatica, right side M54.41 ; Other chronic pain G89.29 and BMI 45.0-49.9, adult Z68.42 [facility] [address] [facility] [id number] [address] [place] [address] Jun, Influenza-like illness R69 [facility] [address] [address] Jun, [facility] [address] [address] Jun, Fibromyalgia M79.7 [facility] [address] [address] May, Fibromyalgia M79.7 [facility] [address] [address] Apr, Insomnia G47.00 [facility] [address] [address] Apr, [facility] [address] [address] Apr, [facility] [address] [address] Apr, Fibromyalgia M79.7 [facility] [address] [address] Mar, Encounter for immunization Z23 [place] [address] [address] 10 Mar, 2017 Visit for TB skin test Z11.1 [place] [address] [address] Mar, Fibromyalgia M79.7 [facility] [address] [address] Feb, Fibromyalgia M79.7 [facility] [address] [address] Feb, [facility] [address] [address] Feb, Fibromyalgia M79.7 [facility] [address] [address] Jan, Fibromyalgia M79.7 ; Obesity E66.9 ; Ins omnia G47.00 and Chronic pain syndrome G89.4 [facility] [address] [address] Jan, [facility] [address] [place] [id number] [place] [address] Jan, [facility] [id number] [place] [address] Dec, [facility] [address] [place] [id number] [place] [address] Dec, [facility] [address] [address] Dec, [facility] [address] [place] [address] [id number] [place] [address] Nov, Chronic pain syndrome G89.4 [facility] [address] [address] October, Chronic pain syndrome G89.4 [facility] [address] [address] October, Chronic pain syndrome G89.4 [facility] [id number] [place] [address] October, [facility] [address] [address] October, Chronic pain syndrome G89.4 [facility] [address] [address] October, Chronic pain syndrome G89.4 and Fibromya lgia M79.7 [facility] [address] [place] [id number] [place] [address] October, Fibromyalgia M79.7 and Chronic pain synd mariposa G89.4 [facility] [address] [place] [id number] [place] [address] Sep, Encounter for immunization Z23 [facility] [id number] [place] [address] Sep, [facility] [address] [address] Sep, [facility] [address] [address] Aug, Fibromyalgia M79.7 and Insomnia G47.00 [place] [address] [address] Aug, Obesity E66.9 ; Snoring R06.83 ; Fibromy algia M79.7 ; Insomnia G47.00 and Screening cholesterol level Z13.220 [place] [address] [address] Aug, Fibromyalgia M79.7 [place] [address] [address] Jul, Obesity E66.9 ; Personal history of alco holism F10.21 and Fibromyalgia M79.7 [place] [address] [address] Jul, [place] [address] [address] Jun, Obesity E66.9 ; Chronic pain syndrome G8 9.4 ; Fibromyalgia M79.7 ; Insomnia G47.00 and Wellness examination Z00.00 [place] [address] [address] Jun, Personal history of alcoholism F10.21 an d Chronic pain syndrome G89.4 [place] [address] [address] Jun, [place] [address] [address] Jun, Fibromyalgia M79.7 [place] [address] [address] May, Fibromyalgia M79.7 [place] [address] [address] May, [place] [address] [address] Apr, Obesity E66.9 ; Fibromyalgia M79.7 ; Ins omnia G47.00 and Personal history of alcoholism F10.21 [facility] [address] [address] Apr, [facility] [address] [address] Apr, [facility] [address] [address] Mar, [facility] [address] [address] Mar, [facility] [address] [address] Feb, [facility] [address] [address] Jan, [facility] [address] [address] Dec, Obesity E66.9 ; Fibromyalgia M79.7 ; Per carlitos history of alcoholism F10.21 and Insomnia G47.00 [facility] [address] [address] Dec, Chronic pain syndrome G89.4 [facility] [address] [address] Dec, [facility] [address] [address] Dec, [facility] [address] [address] Nov, [facility] [address] [address] Nov, [facility] [address] [address] Nov, Fibromyalgia M79.7 ; Obesity E66.9 ; Per carlitos history of alcoholism F10.21 ; Insomnia G47.00 and Chronic pain syndrome G89.4 [facility] [address] [address] Nov, Fibromyalgia M79.7 [facility] [address] [address] October, Fibromyalgia M79.7 [facility] [address] [address] October, Obesity E66.9 ; Fibromyalgia M79.7 ; Per carlitos history of alcoholism F10.21 and Insomnia G47.00 [facility] [address] [address] Sep, [place] [address] [address] Aug, Fibromyalgia M79.7 ; Obesity E66.9 ; Per carlitos history of alcoholism F10.21 and Insomnia G47.00 [place] [address] [address] Aug, [place] [address] [address] Jul, [place] [address] [address] Jun, [place] [address] [address] Jun, [place] [address] [address] May, [place] [address] [address] May, Fibromyalgia M79.7 ; Obesity E66.9 and I nsomnia G47.00 [facility] [address] [address] May, [place] [address] [address] May, Fibromyalgia M79.7 ; Personal history of alcoholism F10.21 ; Insomnia G47.00 and Obesity E66.9 [facility] [address] [address] Apr, [place] [address] [address] Apr, Fibromyalgia M79.7 ; Obesity E66.9 ; Ins omnia G47.00 ; Personal history of alcoholism F10.21 and Frequent falls R29.6 [place] [address] [address] Apr, Obesity E66.9 ; Fibromyalgia M79.7 and I nsomnia G47.00 [place] [address] [address] Mar, [place] [address] [address] Mar, [place] [address] [address] Mar, [place] [address] [address] Mar, Obesity E66.9 ; Fibromyalgia M79.7 and P ersonal history of alcoholism F10.21 [place] [address] [address] Feb, [place] [address] [address] Feb, Other malaise and fatigue 780.79 ; Abnor mal weight gain 783.1 and Fibromyalgia 729.1 [place] [address] [address] Jan, [place] [address] [address] Dec, [place] [address] [address] Dec, Fibromyalgia 729.1 and Abnormal weight g ain 783.1 [place] [address] [address] Dec, Unspecified myalgia and myositis 729.1 ; Abnormal weight gain 783.1 and Fibromyalgia 729.1 [facility] [id number] [place] [address] Nov, [facility] [id number] [place] [address] Nov, Other malaise and fatigue 780.79 ; Unspe cified myalgia and myositis 729.1 and Abnormal weight gain 783.1 [facility] [id number] [place] [address] Nov, [facility] [id number] [place] [address] Nov, [facility] [id number] [place] [address] October, [facility] [id number] [place] [address] October, Unspecified myalgia and myositis 729.1 a nd Scabies 133.0 [facility] [id number] [place] [address] October, [facility] [address] [address] Sep, [facility] [id number] [place] [address] Sep, [facility] [id number] [place] [address] Aug, [facility] [id number] [place] [address] Aug, [facility] [id number] [place] [address] Aug, [facility] [id number] [place] [address] Aug, [facility] [id number] [place] [address] Aug, [facility] [id number] [place] [address] Aug, [facility] [address] [id number] [place] [address] Aug, [facility] [address] [id number] [place] [address] Aug, [facility] [address] [id number] [place] [address] Aug, [facility] [address] [id number] [place] [address] Aug, [facility] [address] [id number] [place] [address] May, [facility] [address] [id number] [place] [address] May, [facility] [address] [id number] [place] [address] Mar, [facility] [address] [id number] [place] [address] Mar, [facility] [address] [id number] [place] [address] Feb, [facility] [address] [id number] [place] [address] Feb, [facility] [address] [id number] [place] [address] Feb, [facility] [address] [id number] [place] [address] Feb, [facility] [address] [id number] [place] [address] October, [facility] [address] [id number] [place] [address] October, [facility] [address] [id number] [place] [address] October, [facility] [address] [id number] [place] [address] October, [facility] [address] [id number] [place] [address] Sep, [facility] [address] [id number] [place] [address] Sep, [facility] [address] [id number] [place] [address] Sep, [facility] [address] [id number] [place] [address] Sep, [facility] [id number] [place] [address] Jul, [facility] [address] [id number] [place] [address] Jul, [facility] [id number] [place] [address] Jun, [facility] [address] [id number] [place] [address] Jun, [facility] [address] [id number] [place] [address] May, [facility] [address] [id number] [place] [address] May, IMMUNIZATIONS No Known Immunizations SOCIAL HISTORY Never Assessed REASON FOR VISIT PLAN OF CARE VITAL SIGNS Height 64 in 2013-10-11 Weight 237 lbs 2013-10-11 Temperature 98.6 degrees Fahrenheit 2013-10-11 Heart Rate 86 bpm 2013-10-11 Respiratory Rate 20 2013-10-11 Blood pressure systolic 128 mmHg 2013-10-11 Blood pressure diastolic 78 mmHg 2013-10-11 MEDICATIONS Unknown Medications RESULTS No Results PROCEDURES No Known procedures INSTRUCTIONS MEDICATIONS ADMINISTERED No Known Medications MEDICAL (GENERAL) HISTORY Type Description Date Medical History fibromyalgia Medical History insomnia Medical History obesity Surgical History ganglion cyst removal 1996 Surgical History section 2004 Hospitalization History surgeries
--- OUTSIDE RECORDS SUMMARY | 2020-01-12 19:59 | XMS REPORT ---
Author Author Nani Ritter Organization [facility] Address [address] [place] [address] Care Team Providers Care Senior Formulation Scientist Name Role Phone HENRI Ritter Unavailable PROBLEMS Type Condition ICD9-CM Code OCW76-CE Code Onset Dates Condition S tatus SNOMED Code Problem Fibromyalgia M79.7 Active 0319488 7 Problem Personal history of alcoholism F10.21 Active 906269802 Problem Low back pain M54.5 Active 614561 009 Problem Sinusitis J32.9 Active 12697959 Problem Obesity E66.9 Active 238117721 Problem Insomnia G47.00 Active 733059495 Problem Chronic pain syndrome G89.4 Active 001384437 Problem Other chronic pain G89.29 Active 8 [id number] ALLERGIES No Information ENCOUNTERS Encounter Location Date Diagnosis [place] [address] [address] October, Fibromyalgia M79.7 [place] [id number] [address] Sep, Fibromyalgia M79.7 [place] [address] [place] [id number] [place] [id number] 08 Jul, 2018 Fibromyalgia M79.7 [facility] [address] [place] [id number] [address] [place] [address] Jun, Sinusitis J32.9 and BMI 40.0 -44.9, adult Z68.41 [place] [address] [id number] 12 Mar, 2018 Fibromyalgia M79.7 ; Muscle spasm M62.838 and BMI 40.0-44.9, adult Z68.41 [place] [address] [place] [address] Mar, [facility] [address] [facility] [id number] [address] [place] [address] Dec, Fibromyalgia M79.7 ; Low gerson k pain M54.5 ; Other chronic pain G89.29 and BMI 45.0-49.9, adult Z68.42 [facility] [address] [facility] [id number] [address] [place] [address] Nov, [facility] [address] [facility] [id number] [address] [place] [id number] Aug, Fibromyalgia M79.7 and BMI 5 0.0-59.9, adult Z68.43 [facility] [address] [facility] [id number] [address] [place] [id number] 27 Aug, 2017 [facility] [address] [place] [id number] [address] [place] [id number] Aug, [facility] [address] [place] [id number] [address] [place] [id number] Jul, [facility] [address] [place] [id number] [place] [phone] Jul, Insomnia G47.00 [facility] [address] [facility] [id number] [address] [place] [id number] Jul, [facility] [address] [place] [id number] [address] [place] [id number] Jul, [facility] [address] [facility] [id number] [address] [place] [id number] Jul, [facility] [address] [place] [id number] [place] [address] Jul, Fibromyalgia M79.7 [facility] [address] [facility] [id number] [address] [place] [id number] Jul, [facility] [address] [place] [id number] [place] [id number] Jun, Chronic pain syndrome G89.4 and Fibromyalgia M79.7 [facility] [address] [facility] [id number] [address] [place] [id number] Jun, Fibromyalgia M79.7 [facility] [address] [facility] [id number] [address] [place] [address] Jun, Bronchitis J40 ; Fibromyalgi a M79.7 ; Lumbago with sciatica, left side M54.42 ; Lumbago with sciatica, right side M54.41 ; Other chronic pain G89.29 and BMI 45.0-49.9, adult Z68.42 [facility] [address] [facility] [id number] [address] [place] [id number] Jun, Influenza-like illness R69 [facility] [address] [place] [id number] [address] [place] [phone] Jun, [facility] [address] [place] [id number] [address] [place] [id number] Jun, Fibromyalgia M79.7 [facility] [address] [place] [id number] [address] [place] [address] May, Fibromyalgia M79.7 [facility] [address] [place] [id number] [address] [place] [id number] Apr, Insomnia G47.00 [facility] [address] [place] [id number] [address] [place] [id number] Apr, [facility] [address] [place] [id number] [address] [place] [id number] Apr, [facility] [address] [place] [id number] [address] [place] [id number] 06 Apr, 2017 Fibromyalgia M79.7 [facility] [address] [facility] [id number] [address] [place] [id number] 16 Mar, 2017 Encounter for immunization Z 23 [facility] [address] [place] [id number] [address] [place] [id number] Mar, Visit for TB skin test Z11.1 [facility] [address] [id number] [address] [place] [id number] Mar, Fibromyalgia M79.7 [facility] [address] [id number] [address] [place] [phone] Feb, Fibromyalgia M79.7 [facility] [address] [id number] [address] [place] [id number] Feb, [facility] [address] [id number] [address] [place] [id number] Feb, Fibromyalgia M79.7 [facility] [address] [facility] [id number] [address] [place] [address] Jan, Fibromyalgia M79.7 ; Obesity E66.9 ; Insomnia G47.00 and Chronic pain syndrome G89.4 [facility] [address] [facility] [id number] [address] [place] [phone] Jan, [facility] [address] [id number] [address] [place] [id number] Jan, [facility] [address] [facility] [id number] [address] [place] [phone] Dec, [facility] [address] [facility] [id number] [address] [place] [id number] Dec, [facility] [address] [facility] [id number] [address] [place] [id number] Dec, [facility] [address] [id number] [address] [place] [address] Nov, Chronic pain syndrome G89.4 [facility] [address] [facility] [id number] [address] [place] [id number] October, Chronic pain syndrome G89.4 [facility] [address] [facility] [id number] [address] [place] [address] October, Chronic pain syndrome G89.4 [facility] [address] [place] [id number] [place] [address] October, [facility] [address] [address] October, Chronic pain syndrome G89.4 [facility] [address] [address] October, Chronic pain syndrome G89.4 and Fibromyalgia M79.7 [facility] [address] [address] October, Fibromyalgia M79.7 and Chron ic pain syndrome G89.4 [place] [address] [address] Sep, Encounter for immunization Z 23 [facility] [address] [address] Sep, [facility] [address] [address] Sep, [facility] [address] [address] Aug, Fibromyalgia M79.7 and Insom christo G47.00 [place] [address] [address] Aug, Obesity E66.9 ; Snoring R06. 83 ; Fibromyalgia M79.7 ; Insomnia G47.00 and Screening cholesterol level Z13.220 [facility] [address] [address] Aug, Fibromyalgia M79.7 [facility] [address] [address] Jul, Obesity E66.9 ; Personal his tory of alcoholism F10.21 and Fibromyalgia M79.7 [facility] [address] [address] Jul, [facility] [address] [place] [id number] [place] [address] Jun, Obesity E66.9 ; Chronic pain syndrome G89.4 ; Fibromyalgia M79.7 ; Insomnia G47.00 and Wellness examination Z00.00 [facility] [address] [id number] [address] [place] [address] Jun, Personal history of alcoholi sm F10.21 and Chronic pain syndrome G89.4 [facility] [address] [id number] [address] [place] [id number] Jun, [facility] [address] [facility] [id number] [address] [place] [address] Jun, Fibromyalgia M79.7 [facility] [address] [facility] [id number] [address] [place] [address] May, Fibromyalgia M79.7 [facility] [address] [facility] [id number] [address] [place] [address] May, [facility] [address] [facility] [id number] [address] [place] [address] Apr, Obesity E66.9 ; Fibromyalgia M79.7 ; Insomnia G47.00 and Personal history of alcoholism F10.21 [facility] [address] [id number] [address] [place] [id number] Apr, [facility] [address] [facility] [id number] [address] [place] [id number] Apr, [facility] [address] [facility] [id number] [address] [place] [id number] Mar, [facility] [address] [facility] [id number] [address] [place] [phone] Mar, [facility] [address] [facility] [id number] [address] [place] [phone] Feb, [facility] [address] [facility] [id number] [address] [place] [id number] Jan, [facility] [address] [facility] [id number] [address] [place] [id number] Dec, Obesity E66.9 ; Fibromyalgia M79.7 ; Personal history of alcoholism F10.21 and Insomnia G47.00 [facility] [address] [facility] [id number] [address] [place] [id number] Dec, Chronic pain syndrome G89.4 [facility] [address] [facility] [id number] [address] [place] [address] Dec, [facility] [address] [facility] [id number] [address] [place] [phone] Dec, [facility] [address] [facility] [id number] [address] [place] [phone] Nov, [facility] [address] [facility] [id number] [address] [place] [phone] Nov, [facility] [address] [place] [id number] [address] [place] [id number] Nov, Fibromyalgia M79.7 ; Obesity E66.9 ; Personal history of alcoholism F10.21 ; Insomnia G47.00 and Chronic pain syndrome G89.4 [facility] [address] [place] [id number] [address] [place] [address] Nov, Fibromyalgia M79.7 [facility] [address] [place] [id number] [address] [place] [address] October, Fibromyalgia M79.7 [facility] [address] [place] [id number] [address] [place] [address] October, Obesity E66.9 ; Fibromyalgia M79.7 ; Personal history of alcoholism F10.21 and Insomnia G47.00 [facility] [address] [facility] [id number] [address] [place] [phone] Sep, [facility] [address] [facility] [id number] [address] [place] [id number] Aug, Fibromyalgia M79.7 ; Obesity E66.9 ; Personal history of alcoholism F10.21 and Insomnia G47.00 [facility] [address] [address] Aug, [facility] [address] [address] Jul, [facility] [address] [address] Jun, [facility] [address] [address] Jun, [facility] [address] [address] May, [facility] [address] [address] May, Fibromyalgia M79.7 ; Obesity E66.9 and Insomnia G47.00 [facility] [address] [address] May, [facility] [address] [address] May, Fibromyalgia M79.7 ; Persona l history of alcoholism F10.21 ; Insomnia G47.00 and Obesity E66.9 [place] [address] [address] Apr, [facility] [address] [address] Apr, Fibromyalgia M79.7 ; Obesity E66.9 ; Insomnia G47.00 ; Personal history of alcoholism F10.21 and Frequent falls R29.6 [facility] [address] [address] Apr, Obesity E66.9 ; Fibromyalgia M79.7 and Insomnia G47.00 [facility] [address] [address] Mar, [facility] [address] [place] [address] Mar, [facility] [address] [place] [id number] [address] [place] [address] Mar, [facility] [address] [place] [id number] [place] [address] Mar, Obesity E66.9 ; Fibromyalgia M79.7 and Personal history of alcoholism F10.21 [place] [address] [place] [id number] [place] [address] Feb, [place] [address] [place] [id number] [place] [address] Feb, Other malaise and fatigue 78 0.79 ; Abnormal weight gain 783.1 and Fibromyalgia 729.1 [place] [address] [address] Jan, [place] [address] [address] Dec, [place] [address] [address] Dec, Fibromyalgia 729.1 and Abnor mal weight gain 783.1 [place] [address] [place] [id number] [place] [address] Dec, Unspecified myalgia and myos itis 729.1 ; Abnormal weight gain 783.1 and Fibromyalgia 729.1 [place] [address] [place] [id number] [place] [address] Nov, [place] [address] [place] [id number] [place] [address] Nov, Other malaise and fatigue 78 0.79 ; Unspecified myalgia and myositis 729.1 and Abnormal weight gain 783.1 [place] [address] [address] Nov, [place] [address] [place] [id number] [place] [address] Nov, [facility] [address] [id number] [address] [place] [id number] October, [facility] [address] [id number] [address] [place] [address] October, Unspecified myalgia and myos itis 729.1 and Scabies 133.0 [facility] [address] [id number] [address] [place] [address], [place] [address] October, [facility] [address] [id number] [address] [place] [address], [place] [address] Sep, [facility] [address] [id number] [address] [place] [phone] Sep, [facility] [address] [id number] [address] [place] [id number] Aug, [facility] [address] [id number] [address] [place] [id number] 17 Aug, 2014 [facility] [address] [id number] [address] [place] [address] Aug, [facility] [address] [id number] [address] [place] [id number] Aug, [facility] [address] [id number] [address] [place] [id number] Aug, [facility] [address] [id number] [address] [place] [phone] Aug, [facility] [address] [id number] [address] [place] [address], [place] [address] Aug, [facility] [address] [id number] [address] [place] [address] Aug, [facility] [address] [id number] [address] [place] [phone] Aug, [facility] [address] [id number] [address] [place] [address], [place] [address] Aug, [facility] [address] [id number] [address] [place] [address], [place] [address] May, [facility] [address] [id number] [address] [place] [address], [place] [address] May, [facility] [address] [id number] [address] [place] [address], [place] [address] Mar, [facility] [address] [id number] [address] [place] [address], [place] [address] Mar, [facility] [address] [id number] [address] [place] [address], [place] [address] Feb, [facility] [address] [id number] [address] [place] [address], [place] [address] Feb, [facility] [address] [id number] [address] [place] [address], [place] [address] Feb, [facility] [address] [id number] [address] [place] [address], [place] [address] Feb, [facility] [address] [id number] [address] [place] [address], [place] [address] October, [facility] [address] [id number] [address] [place] [address], [place] [address] October, [facility] [address] [id number] [address] [place] [address], [place] [address] October, [facility] [address] [id number] [address] [place] [address], [place] [address] October, [facility] [address] [id number] [address] [place] [address], [place] [address] Sep, [facility] [address] [id number] [address] [place] [address], [place] [address] Sep, [facility] [address] [id number] [address] [place] [address], [place] [address] Sep, [facility] [address] [facility] [id number] [address] [place] [id number] Sep, [facility] [address] [facility] [id number] [address] [place] [address] Jul, [facility] [address] [facility] [id number] [address] [place] [id number] Jul, [facility] [address] [facility] [id number] [address] [place] [id number] Jun, [facility] [address] [facility] [id number] [address] [place] [id number] Jun, [facility] [address] [facility] [id number] [address] [place] [id number] May, [facility] [address] [facility] [id number] [address] [place] [id number] May, IMMUNIZATIONS No Known Immunizations SOCIAL HISTORY [...]
--- OUTSIDE RECORDS SUMMARY | 2020-01-12 19:59 | XMS REPORT ---
Author Author Nani Ritter Organization [facility] [place] Address [address] [place] [address] Care Team Providers Care City Carrier Assistant Name Role Phone HENRI Ritter Unavailable PROBLEMS Type Condition ICD9-CM Code IAS71-NC Code Onset Dates Condition S tatus SNOMED Code Problem Fibromyalgia M79.7 Active 0729818 7 Problem Personal history of alcoholism F10.21 Active 443106202 Problem Low back pain M54.5 Active 781870 009 Problem Sinusitis J32.9 Active 86347641 Problem Obesity E66.9 Active 973568278 Problem Insomnia G47.00 Active 144552569 Problem Chronic pain syndrome G89.4 Active 520188959 Problem Other chronic pain G89.29 Active 8 [id number] ALLERGIES No Information ENCOUNTERS Encounter Location Date Diagnosis [place] [id number] [address] Jun, Strain of lumbar region, initial encount er S39.012A and Fibromyalgia M79.7 [facility] [place] [address] [address] Apr, Fibromyalgia M79.7 [facility] [place] [address] [address] Feb, Fibromyalgia M79.7 [facility] [place] [address] [address] Dec, Fibromyalgia M79.7 [facility] [place] [address] [address] October, Fibromyalgia M79.7 [facility] [place] [address] [address] Sep, Fibromyalgia M79.7 [facility] [place] [address] [address] 08 Jul, 2018 Fibromyalgia M79.7 [facility] [place] [address] [address] Jun, Sinusitis J32.9 and BMI 40.0-44.9, adult Z68.41 [facility] [place] [address] [address] Mar, Fibromyalgia M79.7 ; Muscle spasm M62.83 8 and BMI 40.0-44.9, adult Z68.41 [facility] [place] [address] [address] 08 Mar, 2018 [facility] [place] [address] [address] 05 Dec, 2017 Fibromyalgia M79.7 ; Low back pain M54.5 ; Other chronic pain G89.29 and BMI 45.0-49.9, adult Z68.42 [facility] [place] [address] [address] Nov, [facility] [address] [facility] [id number] [place] [address] Aug, Fibromyalgia M79.7 and BMI 5 0.0-59.9, adult Z68.43 [facility] [place] [address] [address] Aug, [facility] [place] [address] [address] Aug, [facility] [place] [address] [address] Jul, [facility] [place] [address] [address] Jul, Insomnia G47.00 [facility] [place] [address] [address] Jul, [facility] [place] [address] [address] Jul, [facility] [place] [address] [address] Jul, [facility] [place] [address] [address] Jul, Fibromyalgia M79.7 [facility] [place] [address] [address] Jul, [facility] [place] [address] [address] Jun, Chronic pain syndrome G89.4 and Fibromya lgia M79.7 [place] [address] [address] Jun, Fibromyalgia M79.7 [facility] [place] [address] [address] Jun, Bronchitis J40 ; Fibromyalgia M79.7 ; Malaika mbago with sciatica, left side M54.42 ; Lumbago with sciatica, right side M54.41 ; Other chronic pain G89.29 and BMI 45.0-49.9, adult Z68.42 [facility] [address] [facility] [id number] [place] [address] Jun, Influenza-like illness R69 [facility] [place] [address] [address] Jun, [facility] [place] [address] [address] Jun, Fibromyalgia M79.7 [facility] [place] [address] [address] May, Fibromyalgia M79.7 [facility] [place] [address] [address] Apr, Insomnia G47.00 [facility] [place] [address] [address] Apr, [facility] [place] [address] [address] Apr, [facility] [place] [address] [address] Apr, Fibromyalgia M79.7 [facility] [place] [address] [address] 16 Mar, 2017 Encounter for immunization Z23 [facility] [place] [address] [address] 10 Mar, 2017 Visit for TB skin test Z11.1 [facility] [place] [address] [address] 04 Mar, 2017 Fibromyalgia M79.7 [facility] [place] [address] [address] Feb, Fibromyalgia M79.7 [facility] [place] [address] [address] Feb, [facility] [place] [address] [address] Feb, Fibromyalgia M79.7 [facility] [place] [address] [address] Jan, Fibromyalgia M79.7 ; Obesity E66.9 ; Ins omnia G47.00 and Chronic pain syndrome G89.4 [facility] [place] [address] [address] Jan, [facility] [place] [address] [address] Jan, [facility] [place] [address] [address] Dec, [facility] [place] [address] [address] Dec, [facility] [place] [address] [address] Dec, [facility] [place] [address] [address] Nov, Chronic pain syndrome G89.4 [facility] [place] [address] [address] October, Chronic pain syndrome G89.4 [facility] [place] [address] [address] October, Chronic pain syndrome G89.4 [facility] [place] [address] [address] October, [facility] [place] [address] [address] October, Chronic pain syndrome G89.4 [place] [address] [address] October, Chronic pain syndrome G89.4 and Fibromya lgia M79.7 [place] [address] [address] October, Fibromyalgia M79.7 and Chronic pain synd mariposa G89.4 [place] [address] [address] Sep, Encounter for immunization Z23 [place] [address] [address] Sep, [place] [address] [address] Sep, [place] [address] [address] Aug, Fibromyalgia M79.7 and Insomnia G47.00 [place] [address] [address] Aug, Obesity E66.9 ; Snoring R06.83 ; Fibromy algia M79.7 ; Insomnia G47.00 and Screening cholesterol level Z13.220 [place] [address] [address] Aug, Fibromyalgia M79.7 [place] [address] [address] Jul, Obesity E66.9 ; Personal history of alco holism F10.21 and Fibromyalgia M79.7 [facility] [place] [address] [address] Jul, [facility] [place] [address] [address] Jun, Obesity E66.9 ; Chronic pain syndrome G8 9.4 ; Fibromyalgia M79.7 ; Insomnia G47.00 and Wellness examination Z00.00 [place] [address] [address] Jun, Personal history of alcoholism F10.21 an d Chronic pain syndrome G89.4 [place] [address] [address] Jun, [place] [address] [address] Jun, Fibromyalgia M79.7 [place] [address] [address] May, Fibromyalgia M79.7 [place] [address] [address] May, [place] [address] [address] Apr, Obesity E66.9 ; Fibromyalgia M79.7 ; Ins omnia G47.00 and Personal history of alcoholism F10.21 [place] [address] [address] Apr, [place] [address] [address] Apr, [place] [address] [address] Mar, [place] [address] [address] Mar, [facility] [place] [address] [address] Feb, [place] [address] [address] Jan, [facility] [place] [address] [address] Dec, Obesity E66.9 ; Fibromyalgia M79.7 ; Per carlitos history of alcoholism F10.21 and Insomnia G47.00 [facility] [place] [address] [address] Dec, Chronic pain syndrome G89.4 [facility] [place] [address] [address] Dec, [facility] [place] [address] [address] Dec, [place] [address] [address] Nov, [place] [address] [address] Nov, [facility] [place] [address] [address] Nov, Fibromyalgia M79.7 ; Obesity E66.9 ; Per carlitos history of alcoholism F10.21 ; Insomnia G47.00 and Chronic pain syndrome G89.4 [place] [address] [address] Nov, Fibromyalgia M79.7 [place] [address] [address] October, Fibromyalgia M79.7 [facility] [place] [address] [address] October, Obesity E66.9 ; Fibromyalgia M79.7 ; Per carlitos history of alcoholism F10.21 and Insomnia G47.00 [facility] [place] [address] [address] Sep, [facility] [place] [address] [address] Aug, Fibromyalgia M79.7 ; Obesity E66.9 ; Per carlitos history of alcoholism F10.21 and Insomnia G47.00 [place] [address] [address] Aug, [place] [address] [address] Jul, [facility] [place] [address] [address] Jun, [place] [address] [address] Jun, [place] [address] [address] May, [place] [address] [address] May, Fibromyalgia M79.7 ; Obesity E66.9 and I nsomnia G47.00 [place] [address] [address] May, [place] [address] [address] May, Fibromyalgia M79.7 ; Personal history of alcoholism F10.21 ; Insomnia G47.00 and Obesity E66.9 [place] [address] [address] Apr, [place] [address] [address] Apr, Fibromyalgia M79.7 ; Obesity E66.9 ; Ins omnia G47.00 ; Personal history of alcoholism F10.21 and Frequent falls R29.6 [place] [address] [address] Apr, Obesity E66.9 ; Fibromyalgia M79.7 and I nsomnia G47.00 [place] [address] [address] Mar, [facility] [place] [address] [address] Mar, [place] [address] [address] Mar, [place] [address] [address] Mar, Obesity E66.9 ; Fibromyalgia M79.7 and P ersonal history of alcoholism F10.21 [place] [address] [address] Feb, [place] [address] [address] Feb, Other malaise and fatigue 780.79 ; Abnor mal weight gain 783.1 and Fibromyalgia 729.1 [place] [address] [address] Jan, [place] [address] [address] Dec, [place] [address] [address] Dec, Fibromyalgia 729.1 and Abnormal weight g ain 783.1 [place] [address] [address] Dec, Unspecified myalgia and myositis 729.1 ; Abnormal weight gain 783.1 and Fibromyalgia 729.1 [place] [address] [address] Nov, [place] [address] [address] Nov, Other malaise and fatigue 780.79 ; Unspe cified myalgia and myositis 729.1 and Abnormal weight gain 783.1 [place] [address] [address] Nov, [place] [address] [address] Nov, [place] [id number] [place] [address] October, [facility] [address] [id number] [place] [address] October, Unspecified myalgia and myositis 729.1 a nd Scabies 133.0 [facility] [address] [id number] [place] [address] October, [facility] [address] [id number] [place] [address] Sep, [facility] [address] [id number] [place] [address] Sep, [facility] [address] [id number] [place] [address] Aug, [facility] [address] [id number] [place] [address] Aug, [facility] [address] [id number] [place] [address] Aug, [facility] [address] [id number] [place] [address] Aug, [facility] [address] [id number] [place] [address] Aug, [facility] [address] [id number] [place] [address] Aug, [facility] [address] [id number] [place] [address] Aug, [facility] [address] [id number] [place] [address] Aug, [facility] [address] [id number] [place] [address] Aug, [facility] [address] [id number] [place] [address] Aug, [facility] [address] [id number] [place] [address] May, [facility] [address] [id number] [place] [address] May, [facility] [address] [id number] [place] [address] Mar, [facility] [address] [id number] [place] [address] Mar, [facility] [address] [id number] [place] [address] Feb, [facility] [address] [id number] [place] [address] Feb, [facility] [address] [id number] [place] [address] Feb, [facility] [address] [id number] [place] [address] Feb, [facility] [address] [id number] [place] [address] October, [facility] [address] [id number] [place] [address] October, [facility] [address] [id number] [place] [address] October, [facility] [address] [id number] [place] [address] October, [facility] [address] [id number] [place] [address] Sep, [facility] [address] [id number] [place] [address] Sep, [facility] [address] [id number] [place] [address] Sep, [facility] [address] [id number] [place] [address] Sep, [facility] [address] [id number] [place] [address] Jul, [facility] [address] [id number] [place] [address] Jul, [facility] [place] [address] [id number] [place] [address] Jun, [facility] [place] [address] [id number] [place] [address] Jun, [facility] [place] [address] [id number] [place] [address] May, [facility] [place] [address] [id number] [place] [address] May, IMMUNIZATIONS No Known Immunizations SOCIAL HISTORY Never Assessed REASON FOR VISIT PLAN OF CARE VITAL SIGNS MEDICATIONS No Known Medications RESULTS No Results PROCEDURES No Known procedures INSTRUCTIONS MEDICATIONS ADMINISTERED No Known Medications MEDICAL (GENERAL) HISTORY Type Description Date Medical History fibromyalgia Medical History insomnia Medical History obesity Surgical History ganglion cyst removal 1996 Surgical History section 2004 Hospitalization History surgeries
--- OUTSIDE RECORDS SUMMARY | 2020-01-12 20:00 | XMS REPORT ---
Author Author Nani Ortega Doctor Organization [facility] Address Unknown Phone Unavailable Care Team Providers Care Circulator Name Role Phone Migration, Doctor Unavailable Unavailable PROBLEMS Type Condition ICD9-CM Code QHQ39-UL Code Onset Dates Condition S tatus SNOMED Code Problem Fibromyalgia M79.7 Active 2968362 7 Problem Personal history of alcoholism F10.21 Active 797679295 Problem Low back pain M54.5 Active 495099 009 Problem Sinusitis J32.9 Active 54879282 Problem Obesity E66.9 Active 688006378 Problem Insomnia G47.00 Active 807912380 Problem Chronic pain syndrome G89.4 Active 151930964 Problem Other chronic pain G89.29 Active 8 4617738 ALLERGIES Substance Reaction Event Type Date Status Clindamycin Unknown Drug Allergy Sep, Active Penicillin V Unknown Non Drug Allergy Sep, Active ENCOUNTERS Encounter Location Date Diagnosis [place] [address] [address] October, Fibromyalgia M79.7 [place] [address] [address] Sep, Fibromyalgia M79.7 [place] [address] [address] [place] [id number] [address] [place] [address] Jul, Fibromyalgia M79.7 [facility] [address] [address] Jun, Sinusitis J32.9 and BMI 40.0 -44.9, adult Z68.41 [place] [address] [address] 12 Mar, 2018 Fibromyalgia M79.7 ; Muscle spasm M62.838 and BMI 40.0-44.9, adult Z68.41 [place] [address] [address] Mar, [facility] [address] [facility] [id number] [address] [place] [address] Dec, Fibromyalgia M79.7 ; Low gerson k pain M54.5 ; Other chronic pain G89.29 and BMI 45.0-49.9, adult Z68.42 [facility] [address] [facility] [id number] [address] [place] [address] Nov, [facility] [address] [facility] [id number] [address] [place] [address] Aug, Fibromyalgia M79.7 and BMI 5 0.0-59.9, adult Z68.43 [facility] [address] [facility] [id number] [address] [place] [id number] 27 Aug, 2017 [facility] [address] [place] [id number] [address] [place] [address] Aug, [facility] [address] [place] [id number] [address] [place] [id number] Jul, [facility] [address] [place] [id number] [address] [place] [address] Jul, Insomnia G47.00 [facility] [address] [place] [id number] [address] [place] [address] Jul, [facility] [address] [place] [id number] [address] [place] [id number] Jul, [facility] [address] [facility] [id number] [address] [place] [address] Jul, [facility] [address] [facility] [id number] [address] [place] [address] Jul, Fibromyalgia M79.7 [facility] [address] [facility] [id number] [address] [place] [id number] Jul, [facility] [address] [place] [id number] [address] [place] [address] Jun, Chronic pain syndrome G89.4 and Fibromyalgia M79.7 [facility] [address] [facility] [id number] [address] [place] [id number] Jun, Fibromyalgia M79.7 [facility] [address] [facility] [id number] [address] [place] [address] Jun, Bronchitis J40 ; Fibromyalgi a M79.7 ; Lumbago with sciatica, left side M54.42 ; Lumbago with sciatica, right side M54.41 ; Other chronic pain G89.29 and BMI 45.0-49.9, adult Z68.42 [facility] [address] [facility] [id number] [address] [place] [id number] Jun, Influenza-like illness R69 [facility] [address] [facility] [id number] [address] [place] [id number] Jun, [facility] [address] [place] [id number] [address] [place] [address] Jun, Fibromyalgia M79.7 [facility] [address] [place] [id number] [address] [place] [id number] May, Fibromyalgia M79.7 [facility] [address] [facility] [id number] [address] [place] [address] Apr, Insomnia G47.00 [facility] [address] [place] [id number] [address] [place] [id number] Apr, [facility] [address] [place] [id number] [address] [place] [address] Apr, [facility] [address] [facility] [id number] [address] [place] [address] Apr, Fibromyalgia M79.7 [facility] [address] [facility] [id number] [address] [place] [id number] 16 Mar, 2017 Encounter for immunization Z 23 [facility] [address] [facility] [id number] [address] [place] [address] Mar, Visit for TB skin test Z11.1 [facility] [address] [id number] [address] [place] [id number] Mar, Fibromyalgia M79.7 [facility] [address] [id number] [address] [place] [address] Feb, Fibromyalgia M79.7 [facility] [address] [id number] [address] [place] [id number] Feb, [facility] [address] [id number] [address] [place] [address] Feb, Fibromyalgia M79.7 [facility] [address] [id number] [address] [place] [address] Jan, Fibromyalgia M79.7 ; Obesity E66.9 ; Insomnia G47.00 and Chronic pain syndrome G89.4 [facility] [address] [id number] [address] [place] [id number] Jan, [facility] [address] [id number] [address] [place] [address] Jan, [facility] [address] [id number] [address] [place] [address] Dec, [facility] [address] [id number] [address] [place] [address] Dec, [facility] [address] [id number] [address] [place] [address] Dec, [facility] [address] [id number] [address] [place] [address] Nov, Chronic pain syndrome G89.4 [facility] [address] [id number] [address] [place] [address] October, Chronic pain syndrome G89.4 [facility] [address] [id number] [address] [place] [address] October, Chronic pain syndrome G89.4 [facility] [address] [address] October, [facility] [address] [address] October, Chronic pain syndrome G89.4 [facility] [address] [place] [id number] [place] [address] October, Chronic pain syndrome G89.4 and Fibromyalgia M79.7 [facility] [address] [address] October, Fibromyalgia M79.7 and Chron ic pain syndrome G89.4 [place] [address] [address] Sep, Encounter for immunization Z 23 [facility] [address] [address] Sep, [facility] [address] [address] Sep, [facility] [address] [address] Aug, Fibromyalgia M79.7 and Insom christo G47.00 [place] [address] [address] Aug, Obesity E66.9 ; Snoring R06. 83 ; Fibromyalgia M79.7 ; Insomnia G47.00 and Screening cholesterol level Z13.220 [facility] [address] [address] Aug, Fibromyalgia M79.7 [facility] [address] [address] Jul, Obesity E66.9 ; Personal his tory of alcoholism F10.21 and Fibromyalgia M79.7 [facility] [address] [address] Jul, [facility] [address] [address] Jun, Obesity E66.9 ; Chronic pain syndrome G89.4 ; Fibromyalgia M79.7 ; Insomnia G47.00 and Wellness examination Z00.00 [facility] [address] [facility] [id number] [address] [place] [address] Jun, Personal history of alcoholi sm F10.21 and Chronic pain syndrome G89.4 [facility] [address] [facility] [id number] [address] [place] [address] Jun, [facility] [address] [facility] [id number] [address] [place] [address] Jun, Fibromyalgia M79.7 [facility] [address] [facility] [id number] [address] [place] [address] May, Fibromyalgia M79.7 [facility] [address] [facility] [id number] [address] [place] [address] May, [facility] [address] [facility] [id number] [address] [place] [address] Apr, Obesity E66.9 ; Fibromyalgia M79.7 ; Insomnia G47.00 and Personal history of alcoholism F10.21 [facility] [address] [facility] [id number] [address] [place] [address] Apr, [facility] [address] [facility] [id number] [address] [place] [address] Apr, [facility] [address] [facility] [id number] [address] [place] [id number] Mar, [facility] [address] [facility] [id number] [address] [place] [address] Mar, [facility] [address] [facility] [id number] [address] [place] [address] Feb, [facility] [address] [facility] [id number] [address] [place] [address] Jan, [facility] [address] [facility] [id number] [address] [place] [address] Dec, Obesity E66.9 ; Fibromyalgia M79.7 ; Personal history of alcoholism F10.21 and Insomnia G47.00 [facility] [address] [facility] [id number] [address] [place] [address] Dec, Chronic pain syndrome G89.4 [facility] [address] [facility] [id number] [address] [place] [address] Dec, [facility] [address] [facility] [id number] [address] [place] [address] Dec, [facility] [address] [facility] [id number] [address] [place] [id number] Nov, [facility] [address] [facility] [id number] [address] [place] [address] Nov, [facility] [address] [place] [id number] [address] [place] [address] Nov, Fibromyalgia M79.7 ; Obesity E66.9 ; Personal history of alcoholism F10.21 ; Insomnia G47.00 and Chronic pain syndrome G89.4 [facility] [address] [place] [id number] [address] [place] [address] Nov, Fibromyalgia M79.7 [facility] [address] [place] [id number] [address] [place] [id number] October, Fibromyalgia M79.7 [facility] [address] [place] [id number] [address] [place] [address] October, Obesity E66.9 ; Fibromyalgia M79.7 ; Personal history of alcoholism F10.21 and Insomnia G47.00 [facility] [address] [place] [id number] [address] [place] [address] Sep, [facility] [address] [facility] [id number] [address] [place] [address] Aug, Fibromyalgia M79.7 ; Obesity E66.9 ; Personal history of alcoholism F10.21 and Insomnia G47.00 [place] [address] [address] Aug, [facility] [address] [address] Jul, [facility] [address] [place] [id number] [place] [address] Jun, [facility] [address] [address] Jun, [facility] [address] [place] [id number] [place] [address] May, [facility] [address] [address] May, Fibromyalgia M79.7 ; Obesity E66.9 and Insomnia G47.00 [place] [address] [address] May, [facility] [address] [address] May, Fibromyalgia M79.7 ; Persona l history of alcoholism F10.21 ; Insomnia G47.00 and Obesity E66.9 [facility] [address] [address] Apr, [facility] [address] [address] Apr, Fibromyalgia M79.7 ; Obesity E66.9 ; Insomnia G47.00 ; Personal history of alcoholism F10.21 and Frequent falls R29.6 [facility] [address] [address] Apr, Obesity E66.9 ; Fibromyalgia M79.7 and Insomnia G47.00 [facility] [address] [address] Mar, [facility] [address] [address] Mar, [facility] [address] [place] [id number] [address] [place] [address] Mar, [facility] [address] [place] [id number] [address] [place] [address] Mar, Obesity E66.9 ; Fibromyalgia M79.7 and Personal history of alcoholism F10.21 [place] [address] [place] [id number] [address] [place] [address] Feb, [place] [address] [facility] [id number] [address] [place] [address] Feb, Other malaise and fatigue 78 0.79 ; Abnormal weight gain 783.1 and Fibromyalgia 729.1 [place] [address] [place] [id number] [address] [place] [address] Jan, [place] [address] [place] [id number] [address] [place] [address] Dec, [place] [address] [place] [id number] [address] [place] [address] Dec, Fibromyalgia 729.1 and Abnor mal weight gain 783.1 [place] [address] [place] [id number] [address] [place] [address] Dec, Unspecified myalgia and myos itis 729.1 ; Abnormal weight gain 783.1 and Fibromyalgia 729.1 [place] [address] [facility] [id number] [address] [place] [address] Nov, [place] [address] [facility] [id number] [address] [place] [address] Nov, Other malaise and fatigue 78 0.79 ; Unspecified myalgia and myositis 729.1 and Abnormal weight gain 783.1 [place] [address] [place] [id number] [address] [place] [address] Nov, [place] [address] [place] [id number] [address] [place] [address] Nov, [facility] [place] [address] [id number] [address] [place] [address] October, [facility] [place] [address] [id number] [address] [place] [address] October, Unspecified myalgia and myos itis 729.1 and Scabies 133.0 [facility] [place] [address] [id number] [address] [place] [address] October, [facility] [place] [address] [id number] [address] [place] [address] Sep, [facility] [place] [address] [id number] [address] [place] [address] Sep, [facility] [place] [address] [id number] [address] [place] [id number] 17 Aug, 2014 [facility] [place] [address] [id number] [address] [place] [id number] 17 Aug, 2014 [facility] [address] [id number] [address] [place] [address] Aug, [facility] [address] [id number] [address] [place] [address] Aug, [facility] [address] [id number] [address] [place] [address] Aug, [facility] [address] [id number] [address] [place] [address] Aug, [facility] [address] [id number] [address] [place] [address] Aug, [facility] [address] [id number] [address] [place] [phone] Aug, [facility] [address] [id number] [address] [place] [id number] 10 Aug, 2014 [facility] [place] [address] [id number] [address] [place] [address] Aug, [facility] [address] [id number] [address] [place] [address], [place] [id number] May, [facility] [address] [id number] [address] [place] [address], [place] [id number] May, [facility] [address] [id number] [address] [place] [address], [place] [id number] Mar, [facility] [address] [id number] [address] [place] [address], [place] [id number] Mar, [facility] [address] [id number] [address] [place] [address], [place] [id number] Feb, [facility] [address] [id number] [address] [place] [address], [place] [id number] Feb, [facility] [address] [id number] [address] [place] [address], [place] [id number] Feb, [facility] [address] [id number] [address] [place] [address], [place] [id number] Feb, [facility] [address] [id number] [address] [place] [address], [place] [id number] October, [facility] [address] [id number] [address] [place] [address], [place] [id number] October, [facility] [address] [id number] [address] [place] [address], [place] [id number] October, [facility] [address] [id number] [address] [place] [address], [place] [id number] October, [facility] [address] [id number] [address] [place] [address], [place] [id number] Sep, [facility] [address] [id number] [address] [place] [address], [place] [id number] Sep, [facility] [address] [id number] [address] [place] [address], [place] [id number] Sep, [facility] [address] [id number] [address] [place] [id number] Sep, [facility] [address] [facility] [id number] [address] [place] [phone] Jul, [facility] [address] [facility] [id number] [address] [place] [address] Jul, [facility] [address] [facility] [id number] [address] [place] [id number] Jun, [facility] [address] [facility] [id number] [address] [place] [id number] Jun, [facility] [address] [facility] [id number] [address] [place] [id number] May, [facility] [address] [facility] [id number] [address] [place] [address] May, IMMUNIZATIONS No Known Immunizations SOCIAL HISTORY Never Assessed REASON FOR VISIT [facility] PLAN OF CARE VITAL SIGNS MEDICATIONS Medication Instructions Dosage Frequency Start Date End Date Duration S tatus Gabapentin 100 mg 1 Capsule by Oral ro alutiiq 3 times per week f/u in 1 month. 1 cap day 1, 2 cap day 2, 3 cap day 3 Aug, Active Naproxen 500 mg take 1 tablet by Ora l route 2 times per day with food for pain. take with food. Aug, Active RESULTS No Results PROCEDURES No Known procedures INSTRUCTIONS MEDICATIONS ADMINISTERED No Known Medications MEDICAL (GENERAL) HISTORY Type Description Date Medical History fibromyalgia Medical History insomnia Medical History obesity Surgical History ganglion cyst removal 1996 Surgical History section 2004 Hospitalization History surgeries
--- OUTSIDE RECORDS SUMMARY | 2020-01-12 20:00 | XMS REPORT ---
Author Author Nani Ortega Doctor Organization [facility] Address Unknown Phone Unavailable Care Team Providers Care Motion Picture Projectionist Name Role Phone Migration, Doctor Unavailable Unavailable PROBLEMS Type Condition ICD9-CM Code OPI30-TX Code Onset Dates Condition S tatus SNOMED Code Problem Fibromyalgia M79.7 Active 5986698 7 Problem Personal history of alcoholism F10.21 Active 459337450 Problem Low back pain M54.5 Active 058210 009 Problem Sinusitis J32.9 Active 20455732 Problem Obesity E66.9 Active 207775956 Problem Insomnia G47.00 Active 784275593 Problem Chronic pain syndrome G89.4 Active 528457358 Problem Other chronic pain G89.29 Active 8 [id number] ALLERGIES No Information ENCOUNTERS Encounter Location Date Diagnosis [place] [address] [address] Sep, Fibromyalgia M79.7 [place] [address] [address] 08 Jul, 2018 Fibromyalgia M79.7 [place] [address] [address] Jun, Sinusitis J32.9 and BMI 40.0 -44.9, adult Z68.41 [place] [address] [address] 12 Mar, 2018 Fibromyalgia M79.7 ; Muscle spasm M62.838 and BMI 40.0-44.9, adult Z68.41 [place] [address] [address] 08 Mar, 2018 [place] [address] [address] Dec, Fibromyalgia M79.7 ; Low gerson k pain M54.5 ; Other chronic pain G89.29 and BMI 45.0-49.9, adult Z68.42 [facility] [address] [id number] [address] [place] [id number] 18 Nov, 2017 [facility] [address] [id number] [address] [place] [address] Aug, Fibromyalgia M79.7 and BMI 5 0.0-59.9, adult Z68.43 [facility] [address] [id number] [address] [place] [address] 27 Aug, 2017 [facility] [address] [id number] [address] [place] [address] Aug, [facility] [address] [id number] [address] [place] [address] Jul, [facility] [address] [id number] [address] [place] [address] Jul, Insomnia G47.00 [facility] [address] [id number] [address] [place] [address] Jul, [facility] [address] [id number] [address] [place] [address] Jul, [facility] [address] [id number] [address] [place] [address] Jul, [facility] [address] [place] [id number] [address] [place] [address] Jul, Fibromyalgia M79.7 [facility] [address] [id number] [address] [place] [address] Jul, [facility] [address] [place] [id number] [address] [place] [address] Jun, Chronic pain syndrome G89.4 and Fibromyalgia M79.7 [facility] [address] [id number] [address] [place] [address] Jun, Fibromyalgia M79.7 [facility] [address] [place] [id number] [address] [place] [address] Jun, Bronchitis J40 ; Fibromyalgi a M79.7 ; Lumbago with sciatica, left side M54.42 ; Lumbago with sciatica, right side M54.41 ; Other chronic pain G89.29 and BMI 45.0-49.9, adult Z68.42 [facility] [address] [place] [id number] [address] [place] [address] Jun, Influenza-like illness R69 [facility] [address] [place] [id number] [address] [place] [address] Jun, [facility] [address] [address] Jun, Fibromyalgia M79.7 [facility] [address] [address] May, Fibromyalgia M79.7 [facility] [address] [place] [id number] [address] [place] [address] Apr, Insomnia G47.00 [facility] [address] [address] Apr, [facility] [address] [address] Apr, [place] [address] [address] Apr, Fibromyalgia M79.7 [facility] [address] [place] [id number] [address] [place] [address] Mar, Encounter for immunization Z 23 [facility] [address] [address] 10 Mar, 2017 Visit for TB skin test Z11.1 [facility] [address] [place] [id number] [address] [place] [address] 04 Mar, 2017 Fibromyalgia M79.7 [facility] [address] [place] [id number] [place] [address] Feb, Fibromyalgia M79.7 [facility] [address] [id number] [address] [place] [phone] Feb, [facility] [address] [id number] [address] [place] [address] Feb, Fibromyalgia M79.7 [facility] [address] [id number] [address] [place] [address] Jan, Fibromyalgia M79.7 ; Obesity E66.9 ; Insomnia G47.00 and Chronic pain syndrome G89.4 [facility] [address] [id number] [address] [place] [address] Jan, [facility] [address] [id number] [address] [place] [address] Jan, [facility] [address] [id number] [address] [place] [address] Dec, [facility] [address] [id number] [address] [place] [address] Dec, [facility] [address] [id number] [address] [place] [address] Dec, [facility] [address] [id number] [address] [place] [address] Nov, Chronic pain syndrome G89.4 [facility] [address] [id number] [address] [place] [address] October, Chronic pain syndrome G89.4 [facility] [address] [id number] [address] [place] [address] October, Chronic pain syndrome G89.4 [facility] [address] [id number] [address] [place] [address] October, [facility] [address] [id number] [address] [place] [address] October, Chronic pain syndrome G89.4 [place] [address] [address] October, Chronic pain syndrome G89.4 and Fibromyalgia M79.7 [place] [address] [address] October, Fibromyalgia M79.7 and Chron ic pain syndrome G89.4 [place] [address] [address] Sep, Encounter for immunization Z 23 [place] [address] [address] Sep, [place] [address] [address] Sep, [place] [address] [address] Aug, Fibromyalgia M79.7 and Insom christo G47.00 [place] [address] [address] Aug, Obesity E66.9 ; Snoring R06. 83 ; Fibromyalgia M79.7 ; Insomnia G47.00 and Screening cholesterol level Z13.220 [place] [address] [address] Aug, Fibromyalgia M79.7 [place] [address] [address] Jul, Obesity E66.9 ; Personal his tory of alcoholism F10.21 and Fibromyalgia M79.7 [place] [address] [address] Jul, [place] [address] [address] Jun, Obesity E66.9 ; Chronic pain syndrome G89.4 ; Fibromyalgia M79.7 ; Insomnia G47.00 and Wellness examination Z00.00 [place] [address] [address] Jun, Personal history of alcoholi sm F10.21 and Chronic pain syndrome G89.4 [facility] [address] [id number] [address] [place] [address] Jun, [facility] [address] [id number] [address] [place] [address] Jun, Fibromyalgia M79.7 [facility] [address] [place] [id number] [address] [place] [address] May, Fibromyalgia M79.7 [facility] [address] [id number] [address] [place] [address] May, [facility] [address] [place] [id number] [place] [address] Apr, Obesity E66.9 ; Fibromyalgia M79.7 ; Insomnia G47.00 and Personal history of alcoholism F10.21 [facility] [address] [place] [id number] [address] [place] [address] Apr, [facility] [address] [place] [id number] [address] [place] [address] Apr, [facility] [address] [address] Mar, [facility] [address] [place] [id number] [address] [place] [address] Mar, [facility] [address] [place] [id number] [address] [place] [address] Feb, [facility] [address] [id number] [address] [place] [address] Jan, [facility] [address] [place] [id number] [address] [place] [address] Dec, Obesity E66.9 ; Fibromyalgia M79.7 ; Personal history of alcoholism F10.21 and Insomnia G47.00 [facility] [address] [place] [id number] [address] [place] [address] Dec, Chronic pain syndrome G89.4 [facility] [address] [id number] [address] [place] [address] Dec, [facility] [address] [id number] [address] [place] [address] Dec, [facility] [address] [id number] [address] [place] [address] Nov, [facility] [address] [id number] [address] [place] [address] Nov, [facility] [address] [id number] [address] [place] [address] Nov, Fibromyalgia M79.7 ; Obesity E66.9 ; Personal history of alcoholism F10.21 ; Insomnia G47.00 and Chronic pain syndrome G89.4 [facility] [address] [id number] [address] [place] [address] Nov, Fibromyalgia M79.7 [facility] [address] [id number] [address] [place] [address] October, Fibromyalgia M79.7 [facility] [address] [id number] [address] [place] [address] October, Obesity E66.9 ; Fibromyalgia M79.7 ; Personal history of alcoholism F10.21 and Insomnia G47.00 [facility] [address] [id number] [address] [place] [address] Sep, [facility] [address] [id number] [address] [place] [address] Aug, Fibromyalgia M79.7 ; Obesity E66.9 ; Personal history of alcoholism F10.21 and Insomnia G47.00 [facility] [address] [id number] [address] [place] [address] Aug, [facility] [address] [id number] [address] [place] [address] Jul, [facility] [address] [id number] [address] [place] [address] Jun, [facility] [address] [place] [id number] [place] [address] Jun, [facility] [address] [place] [id number] [address] [place] [address] May, [facility] [address] [address] May, Fibromyalgia M79.7 ; Obesity E66.9 and Insomnia G47.00 [facility] [address] [address] May, [facility] [address] [address] May, Fibromyalgia M79.7 ; Persona l history of alcoholism F10.21 ; Insomnia G47.00 and Obesity E66.9 [facility] [address] [address] Apr, [facility] [address] [address] Apr, Fibromyalgia M79.7 ; Obesity E66.9 ; Insomnia G47.00 ; Personal history of alcoholism F10.21 and Frequent falls R29.6 [facility] [address] [address] Apr, Obesity E66.9 ; Fibromyalgia M79.7 and Insomnia G47.00 [facility] [address] [address] Mar, [facility] [address] [address] Mar, [facility] [address] [place] [id number] [place] [address] Mar, [facility] [address] [address] Mar, Obesity E66.9 ; Fibromyalgia M79.7 and Personal history of alcoholism F10.21 [facility] [address] [id number] [address] [place] [address] Feb, [facility] [address] [id number] [address] [place] [address] 09 Feb, 2015 Other malaise and fatigue 78 0.79 ; Abnormal weight gain 783.1 and Fibromyalgia 729.1 [facility] [address] [id number] [address] [place] [address] Jan, [place] [address] [id number] [address] [place] [address] Dec, [place] [address] [place] [id number] [address] [place] [address] Dec, Fibromyalgia 729.1 and Abnor mal weight gain 783.1 [place] [address] [place] [id number] [address] [place] [address] Dec, Unspecified myalgia and myos itis 729.1 ; Abnormal weight gain 783.1 and Fibromyalgia 729.1 [place] [address] [id number] [address] [place] [address] Nov, [place] [address] [place] [id number] [address] [place] [address] Nov, Other malaise and fatigue 78 0.79 ; Unspecified myalgia and myositis 729.1 and Abnormal weight gain 783.1 [place] [address] [id number] [address] [place] [address] Nov, [place] [address] [id number] [address] [place] [address] Nov, [facility] [address] [place] [id number] [address] [place] [address] October, [facility] [address] [place] [id number] [address] [place] [address] October, Unspecified myalgia and myos itis 729.1 and Scabies 133.0 [facility] [address] [id number] [address] [place] [address] October, [facility] [address] [id number] [address] [place] [address] 14 Sep, 2014 [facility] [address] [id number] [address] [place] [address] Sep, [facility] [address] [id number] [address] [place] [address] 17 Aug, 2014 [facility] [address] [id number] [address] [place] [address] 17 Aug, 2014 [facility] [address] [id number] [address] [place] [address] Aug, [facility] [address] [id number] [address] [place] [address] 17 Aug, 2014 [facility] [address] [id number] [address] [place] [address] Aug, [facility] [address] [id number] [address] [place] [address] Aug, [facility] [address] [id number] [address] [place] [address] Aug, [facility] [address] [id number] [address] [place] [address] Aug, [facility] [address] [id number] [address] [place] [address] Aug, [facility] [address] [id number] [address] [place] [address] 10 Aug, 2014 [facility] [address] [id number] [address] [place] [id number] 04 May, 2014 [facility] [address] [id number] [address] [place] [address] May, [facility] [address] [id number] [address] [place] [address], [place] [address] Mar, [facility] [address] [id number] [address] [place] [address], [place] [address] Mar, [facility] [address] [id number] [address] [place] [address], [place] [address] 17 Feb, 2014 [facility] [address] [id number] [address] [place] [address], [place] [address] Feb, [facility] [address] [id number] [address] [place] [address], [place] [address] Feb, [facility] [address] [id number] [address] [place] [address], [place] [address] Feb, [facility] [address] [id number] [address] [place] [address], [place] [address] October, [facility] [address] [id number] [address] [place] [address], [place] [address] October, [facility] [address] [id number] [address] [place] [address], [place] [address] October, [facility] [address] [id number] [address] [place] [address], [place] [address] October, [facility] [address] [id number] [address] [place] [address], [place] [address] Sep, [facility] [address] [id number] [address] [place] [address], [place] [address] Sep, [facility] [address] [id number] [address] [place] [address], [place] [address] Sep, [facility] [address] [id number] [address] [place] [address], [place] [address] Sep, [facility] [address] [id number] [address] [place] [address], [place] [address] Jul, [facility] [address] [id number] [address] [place] [address] Jul, [facility] [address] [id number] [address] [place] [address] Jun, [facility] [address] [id number] [address] [place] [address] Jun, [facility] [address] [id number] [address] [place] [address] May, [facility] [address] [id number] [address] [place] [address] May, IMMUNIZATIONS No Known Immunizations SOCIAL HISTORY Never Assessed REASON FOR VISIT EMR-[facility] PLAN OF CARE VITAL SIGNS MEDICATIONS Unknown Medications RESULTS No Results PROCEDURES No Known procedures INSTRUCTIONS MEDICATIONS ADMINISTERED No Known Medications MEDICAL (GENERAL) HISTORY Type Description Date Medical History fibromyalgia Medical History insomnia Medical History obesity Surgical History ganglion cyst removal 1996 Surgical History section 2003 Hospitalization History surgeries
--- OUTSIDE RECORDS SUMMARY | 2020-01-12 20:00 | XMS REPORT ---
Author Author Nani Ritter Organization [facility] Address [address] [place] [address] Care Team Providers Care Tunneller Name Role Phone HENRI Ritter Unavailable PROBLEMS Type Condition ICD9-CM Code TAY82-IV Code Onset Dates Condition S tatus SNOMED Code Problem Fibromyalgia M79.7 Active 3293284 7 Problem Personal history of alcoholism F10.21 Active 207050772 Problem Low back pain M54.5 Active 625876 009 Problem Sinusitis J32.9 Active 64392789 Problem Obesity E66.9 Active 495167192 Problem Insomnia G47.00 Active 869969054 Problem Chronic pain syndrome G89.4 Active 016949354 Problem Other chronic pain G89.29 Active 8 [id number] ALLERGIES No Information ENCOUNTERS Encounter Location Date Diagnosis [place] [address] [address] October, Fibromyalgia M79.7 [place] [address] [address] Sep, Fibromyalgia M79.7 [place] [address] [place] [id number] [address] [place] [id number] 08 Jul, 2018 Fibromyalgia M79.7 [facility] [address] [place] [id number] [address] [place] [address] Jun, Sinusitis J32.9 and BMI 40.0 -44.9, adult Z68.41 [place] [address] [address] 12 Mar, 2018 Fibromyalgia M79.7 ; Muscle spasm M62.838 and BMI 40.0-44.9, adult Z68.41 [place] [address] [place] [address] Mar, [facility] [address] [facility] [id number] [address] [place] [address] Dec, Fibromyalgia M79.7 ; Low gerson k pain M54.5 ; Other chronic pain G89.29 and BMI 45.0-49.9, adult Z68.42 [facility] [address] [facility] [id number] [address] [place] [address] Nov, [facility] [address] [facility] [id number] [address] [place] [address] Aug, Fibromyalgia M79.7 and BMI 5 0.0-59.9, adult Z68.43 [facility] [address] [facility] [id number] [address] [place] [address] 27 Aug, 2017 [facility] [address] [place] [id number] [address] [place] [address] Aug, [facility] [address] [place] [id number] [address] [place] [address] Jul, [facility] [address] [place] [id number] [place] [address] Jul, Insomnia G47.00 [facility] [address] [facility] [id number] [address] [place] [address] Jul, [facility] [address] [place] [id number] [address] [place] [address] Jul, [facility] [address] [facility] [id number] [address] [place] [id number] Jul, [facility] [address] [place] [id number] [place] [address] Jul, Fibromyalgia M79.7 [facility] [address] [facility] [id number] [address] [place] [address] Jul, [facility] [address] [place] [id number] [place] [address] Jun, Chronic pain syndrome G89.4 and Fibromyalgia M79.7 [facility] [address] [facility] [id number] [address] [place] [address] Jun, Fibromyalgia M79.7 [facility] [address] [facility] [id number] [address] [place] [address] Jun, Bronchitis J40 ; Fibromyalgi a M79.7 ; Lumbago with sciatica, left side M54.42 ; Lumbago with sciatica, right side M54.41 ; Other chronic pain G89.29 and BMI 45.0-49.9, adult Z68.42 [facility] [address] [facility] [id number] [address] [place] [address] Jun, Influenza-like illness R69 [facility] [address] [place] [id number] [address] [place] [address] Jun, [facility] [address] [place] [id number] [address] [place] [address] Jun, Fibromyalgia M79.7 [facility] [address] [place] [id number] [address] [place] [id number] May, Fibromyalgia M79.7 [facility] [address] [place] [id number] [address] [place] [phone] Apr, Insomnia G47.00 [facility] [address] [place] [id number] [address] [place] [phone] Apr, [facility] [address] [place] [id number] [address] [place] [phone] Apr, [facility] [address] [place] [id number] [address] [place] [id number] 06 Apr, 2017 Fibromyalgia M79.7 [facility] [address] [facility] [id number] [address] [place] [id number] 16 Mar, 2017 Encounter for immunization Z 23 [facility] [address] [place] [id number] [address] [place] [address] Mar, Visit for TB skin test Z11.1 [facility] [address] [id number] [address] [place] [address] Mar, Fibromyalgia M79.7 [facility] [address] [id number] [address] [place] [phone] Feb, Fibromyalgia M79.7 [facility] [address] [id number] [address] [place] [phone] Feb, [facility] [address] [id number] [address] [place] [phone] Feb, Fibromyalgia M79.7 [facility] [address] [facility] [id number] [address] [place] [address] Jan, Fibromyalgia M79.7 ; Obesity E66.9 ; Insomnia G47.00 and Chronic pain syndrome G89.4 [facility] [address] [facility] [id number] [address] [place] [phone] Jan, [facility] [address] [id number] [address] [place] [phone] Jan, [facility] [address] [facility] [id number] [address] [place] [phone] Dec, [facility] [address] [facility] [id number] [address] [place] [phone] Dec, [facility] [address] [facility] [id number] [address] [place] [phone] Dec, [facility] [address] [id number] [address] [place] [phone] Nov, Chronic pain syndrome G89.4 [facility] [address] [facility] [id number] [address] [place] [phone] October, Chronic pain syndrome G89.4 [facility] [address] [facility] [id number] [address] [place] [address] October, Chronic pain syndrome G89.4 [facility] [address] [place] [id number] [address] [place] [phone] October, [facility] [address] [address] October, Chronic pain syndrome G89.4 [facility] [address] [address] October, Chronic pain syndrome G89.4 and Fibromyalgia M79.7 [facility] [address] [address] October, Fibromyalgia M79.7 and Chron ic pain syndrome G89.4 [place] [address] [address] Sep, Encounter for immunization Z 23 [facility] [address] [address] Sep, [facility] [address] [address] Sep, [facility] [address] [address] Aug, Fibromyalgia M79.7 and Insom christo G47.00 [place] [address] [address] Aug, Obesity E66.9 ; Snoring R06. 83 ; Fibromyalgia M79.7 ; Insomnia G47.00 and Screening cholesterol level Z13.220 [facility] [address] [address] Aug, Fibromyalgia M79.7 [facility] [address] [address] Jul, Obesity E66.9 ; Personal his tory of alcoholism F10.21 and Fibromyalgia M79.7 [facility] [address] [address] Jul, [facility] [address] [place] [id number] [address] [place] [address] Jun, Obesity E66.9 ; Chronic pain syndrome G89.4 ; Fibromyalgia M79.7 ; Insomnia G47.00 and Wellness examination Z00.00 [facility] [address] [id number] [address] [place] [address] Jun, Personal history of alcoholi sm F10.21 and Chronic pain syndrome G89.4 [facility] [address] [id number] [address] [place] [address] Jun, [facility] [address] [facility] [id number] [address] [place] [address] Jun, Fibromyalgia M79.7 [facility] [address] [facility] [id number] [address] [place] [address] May, Fibromyalgia M79.7 [facility] [address] [facility] [id number] [address] [place] [address] May, [facility] [address] [facility] [id number] [address] [place] [phone] Apr, Obesity E66.9 ; Fibromyalgia M79.7 ; Insomnia G47.00 and Personal history of alcoholism F10.21 [facility] [address] [id number] [address] [place] [phone] Apr, [facility] [address] [facility] [id number] [address] [place] [phone] Apr, [facility] [address] [facility] [id number] [address] [place] [address] Mar, [facility] [address] [facility] [id number] [address] [place] [phone] Mar, [facility] [address] [facility] [id number] [address] [place] [phone] Feb, [facility] [address] [facility] [id number] [address] [place] [phone] Jan, [facility] [address] [facility] [id number] [address] [place] [id number] Dec, Obesity E66.9 ; Fibromyalgia M79.7 ; Personal history of alcoholism F10.21 and Insomnia G47.00 [facility] [address] [facility] [id number] [address] [place] [phone] Dec, Chronic pain syndrome G89.4 [facility] [address] [facility] [id number] [address] [place] [phone] Dec, [facility] [address] [facility] [id number] [address] [place] [phone] Dec, [facility] [address] [facility] [id number] [address] [place] [address] Nov, [facility] [address] [facility] [id number] [address] [place] [phone] Nov, [facility] [address] [place] [id number] [address] [place] [phone] Nov, Fibromyalgia M79.7 ; Obesity E66.9 ; Personal history of alcoholism F10.21 ; Insomnia G47.00 and Chronic pain syndrome G89.4 [facility] [address] [place] [id number] [address] [place] [address] Nov, Fibromyalgia M79.7 [facility] [address] [place] [id number] [address] [place] [address] October, Fibromyalgia M79.7 [facility] [address] [place] [id number] [address] [place] [address] October, Obesity E66.9 ; Fibromyalgia M79.7 ; Personal history of alcoholism F10.21 and Insomnia G47.00 [facility] [address] [facility] [id number] [address] [place] [phone] Sep, [facility] [address] [facility] [id number] [address] [place] [address] Aug, Fibromyalgia M79.7 ; Obesity E66.9 ; Personal history of alcoholism F10.21 and Insomnia G47.00 [facility] [address] [address] Aug, [facility] [address] [address] Jul, [facility] [address] [address] Jun, [facility] [address] [address] Jun, [facility] [address] [address] May, [facility] [address] [address] May, Fibromyalgia M79.7 ; Obesity E66.9 and Insomnia G47.00 [facility] [address] [address] May, [facility] [address] [address] May, Fibromyalgia M79.7 ; Persona l history of alcoholism F10.21 ; Insomnia G47.00 and Obesity E66.9 [place] [address] [address] Apr, [facility] [address] [address] Apr, Fibromyalgia M79.7 ; Obesity E66.9 ; Insomnia G47.00 ; Personal history of alcoholism F10.21 and Frequent falls R29.6 [facility] [address] [address] Apr, Obesity E66.9 ; Fibromyalgia M79.7 and Insomnia G47.00 [facility] [address] [address] Mar, [facility] [address] [place] [address] Mar, [facility] [address] [place] [id number] [address] [place] [address] Mar, [facility] [address] [place] [id number] [place] [address] Mar, Obesity E66.9 ; Fibromyalgia M79.7 and Personal history of alcoholism F10.21 [place] [address] [place] [id number] [place] [address] Feb, [place] [address] [place] [id number] [place] [address] Feb, Other malaise and fatigue 78 0.79 ; Abnormal weight gain 783.1 and Fibromyalgia 729.1 [place] [address] [address] Jan, [place] [address] [address] Dec, [place] [address] [address] Dec, Fibromyalgia 729.1 and Abnor mal weight gain 783.1 [place] [address] [place] [id number] [place] [address] Dec, Unspecified myalgia and myos itis 729.1 ; Abnormal weight gain 783.1 and Fibromyalgia 729.1 [place] [address] [place] [id number] [address] [place] [address] Nov, [place] [address] [place] [id number] [place] [address] Nov, Other malaise and fatigue 78 0.79 ; Unspecified myalgia and myositis 729.1 and Abnormal weight gain 783.1 [place] [address] [address] Nov, [place] [address] [place] [address] [address] Nov, [facility] [address] [id number] [address] [place] [address] October, [facility] [address] [id number] [address] [place] [phone] October, Unspecified myalgia and myos itis 729.1 and Scabies 133.0 [facility] [address] [id number] [address] [place] [address], [place] [address] October, [facility] [address] [id number] [address] [place] [address], [place] [address] Sep, [facility] [address] [id number] [address] [place] [phone] Sep, [facility] [address] [id number] [address] [place] [address] Aug, [facility] [address] [id number] [address] [place] [id number] 17 Aug, 2014 [facility] [address] [id number] [address] [place] [phone] Aug, [facility] [address] [id number] [address] [place] [address] Aug, [facility] [address] [id number] [address] [place] [address] Aug, [facility] [address] [id number] [address] [place] [phone] Aug, [facility] [address] [id number] [address] [place] [address], [place] [address] Aug, [facility] [address] [id number] [address] [place] [phone] Aug, [facility] [address] [id number] [address] [place] [phone] Aug, [facility] [address] [id number] [address] [place] [address], [place] [address] Aug, [facility] [address] [id number] [address] [place] [address], [place] [address] May, [facility] [address] [id number] [address] [place] [address], [place] [address] May, [facility] [address] [id number] [address] [place] [address], [place] [address] Mar, [facility] [address] [id number] [address] [place] [address], [place] [address] Mar, [facility] [address] [id number] [address] [place] [address], [place] [address] Feb, [facility] [address] [id number] [address] [place] [address], [place] [address] Feb, [facility] [address] [id number] [address] [place] [address], [place] [address] Feb, [facility] [address] [id number] [address] [place] [address], [place] [address] Feb, [facility] [address] [id number] [address] [place] [address], [place] [address] October, [facility] [address] [id number] [address] [place] [address], [place] [address] October, [facility] [address] [id number] [address] [place] [address], [place] [address] October, [facility] [address] [id number] [address] [place] [address], [place] [address] October, [facility] [address] [id number] [address] [place] [address], [place] [address] Sep, [facility] [address] [id number] [address] [place] [address], [place] [address] Sep, [facility] [address] [id number] [address] [place] [address], [place] [address] Sep, [facility] [address] [facility] [id number] [address] [place] [address] Sep, [facility] [address] [facility] [id number] [address] [place] [address] Jul, [facility] [address] [facility] [id number] [address] [place] [phone] Jul, [facility] [address] [facility] [id number] [address] [place] [address] Jun, [facility] [address] [facility] [id number] [address] [place] [address] Jun, [facility] [address] [facility] [id number] [address] [place] [id number] May, [facility] [address] [facility] [id number] [address] [place] [address] May, IMMUNIZATIONS No Known Immunizations SOCIAL HISTORY Never Assessed REASON FOR VISIT PLAN OF CARE VITAL SIGNS Height 64 in 2014-08-22 Weight 224.4 lbs 2014-08-22 Temperature 97.9 degrees Fahrenheit 2014-08-22 Heart Rate 76 bpm 2014-08-22 Respiratory Rate 18 2014-08-22 Blood pressure systolic 142 mmHg 2014-08-22 Blood pressure diastolic 76 mmHg 2014-08-22 MEDICATIONS Unknown Medications RESULTS No Results PROCEDURES No Known procedures INSTRUCTIONS MEDICATIONS ADMINISTERED No Known Medications MEDICAL (GENERAL) HISTORY Type Description Date Medical History fibromyalgia Medical History insomnia Medical History obesity Surgical History ganglion cyst removal 1996 Surgical History section 2004 Hospitalization History surgeries
--- OUTSIDE RECORDS SUMMARY | 2020-01-12 20:00 | XMS REPORT ---
Author Author Nani Ritter Organization [facility] Address [address] [place] [address] Care Team Providers Care [employer] Manager Name Role Phone HENRI Ritter Unavailable PROBLEMS Type Condition ICD9-CM Code PFI58-TM Code Onset Dates Condition S tatus SNOMED Code Problem Fibromyalgia M79.7 Active 9442536 7 Problem Personal history of alcoholism F10.21 Active 655493987 Problem Low back pain M54.5 Active 995892 009 Problem Sinusitis J32.9 Active 66946538 Problem Obesity E66.9 Active 629039893 Problem Insomnia G47.00 Active 095424749 Problem Chronic pain syndrome G89.4 Active 804968744 Problem Other chronic pain G89.29 Active 8 [id number] ALLERGIES No Information ENCOUNTERS Encounter Location Date Diagnosis [place] [address] [address] October, Fibromyalgia M79.7 [place] [id number] [address] Sep, Fibromyalgia M79.7 [place] [address] [place] [id number] [address] [place] [address] 08 Jul, 2018 Fibromyalgia M79.7 [facility] [address] [place] [id number] [address] [place] [address] Jun, Sinusitis J32.9 and BMI 40.0 -44.9, adult Z68.41 [place] [address] [address] 12 Mar, 2018 Fibromyalgia M79.7 ; Muscle spasm M62.838 and BMI 40.0-44.9, adult Z68.41 [place] [address] [place] [address] Mar, [facility] [address] [facility] [id number] [address] [place] [address] Dec, Fibromyalgia M79.7 ; Low gerson k pain M54.5 ; Other chronic pain G89.29 and BMI 45.0-49.9, adult Z68.42 [facility] [address] [facility] [id number] [address] [place] [address] Nov, [facility] [address] [facility] [id number] [address] [place] [address] Aug, Fibromyalgia M79.7 and BMI 5 0.0-59.9, adult Z68.43 [facility] [address] [facility] [id number] [address] [place] [address] 27 Aug, 2017 [facility] [address] [place] [id number] [address] [place] [address] Aug, [facility] [address] [place] [id number] [address] [place] [address] Jul, [facility] [address] [place] [id number] [place] [address] Jul, Insomnia G47.00 [facility] [address] [facility] [id number] [address] [place] [address] Jul, [facility] [address] [place] [id number] [address] [place] [address] Jul, [facility] [address] [facility] [id number] [address] [place] [address] Jul, [facility] [address] [place] [id number] [place] [address] Jul, Fibromyalgia M79.7 [facility] [address] [facility] [id number] [address] [place] [address] Jul, [facility] [address] [place] [id number] [place] [address] Jun, Chronic pain syndrome G89.4 and Fibromyalgia M79.7 [facility] [address] [facility] [id number] [address] [place] [address] Jun, Fibromyalgia M79.7 [facility] [address] [facility] [id number] [address] [place] [address] Jun, Bronchitis J40 ; Fibromyalgi a M79.7 ; Lumbago with sciatica, left side M54.42 ; Lumbago with sciatica, right side M54.41 ; Other chronic pain G89.29 and BMI 45.0-49.9, adult Z68.42 [facility] [address] [facility] [id number] [address] [place] [address] Jun, Influenza-like illness R69 [facility] [address] [place] [id number] [address] [place] [address] Jun, [facility] [address] [place] [id number] [address] [place] [address] Jun, Fibromyalgia M79.7 [facility] [address] [place] [id number] [address] [place] [address] May, Fibromyalgia M79.7 [facility] [address] [place] [id number] [address] [place] [address] Apr, Insomnia G47.00 [facility] [address] [place] [id number] [address] [place] [address] Apr, [facility] [address] [place] [id number] [address] [place] [address] Apr, [facility] [address] [place] [id number] [address] [place] [address] 06 Apr, 2017 Fibromyalgia M79.7 [facility] [address] [facility] [id number] [address] [place] [address] 16 Mar, 2017 Encounter for immunization Z 23 [facility] [address] [place] [id number] [address] [place] [address] Mar, Visit for TB skin test Z11.1 [facility] [address] [id number] [address] [place] [address] Mar, Fibromyalgia M79.7 [facility] [address] [id number] [address] [place] [address] Feb, Fibromyalgia M79.7 [facility] [address] [id number] [address] [place] [address] Feb, [facility] [address] [id number] [address] [place] [address] Feb, Fibromyalgia M79.7 [facility] [address] [facility] [id number] [address] [place] [address] Jan, Fibromyalgia M79.7 ; Obesity E66.9 ; Insomnia G47.00 and Chronic pain syndrome G89.4 [facility] [address] [facility] [id number] [address] [place] [address] Jan, [facility] [address] [id number] [address] [place] [address] Jan, [facility] [address] [facility] [id number] [address] [place] [address] Dec, [facility] [address] [facility] [id number] [address] [place] [address] Dec, [facility] [address] [facility] [id number] [address] [place] [address] Dec, [facility] [address] [id number] [address] [place] [address] Nov, Chronic pain syndrome G89.4 [facility] [address] [facility] [id number] [address] [place] [address] October, Chronic pain syndrome G89.4 [facility] [address] [facility] [id number] [address] [place] [address] October, Chronic pain syndrome G89.4 [facility] [address] [place] [id number] [address] [place] [address] October, [facility] [address] [address] October, Chronic pain syndrome G89.4 [facility] [address] [address] October, Chronic pain syndrome G89.4 and Fibromyalgia M79.7 [facility] [address] [address] October, Fibromyalgia M79.7 and Chron ic pain syndrome G89.4 [place] [address] [address] Sep, Encounter for immunization Z 23 [facility] [address] [address] Sep, [facility] [address] [address] Sep, [facility] [address] [address] Aug, Fibromyalgia M79.7 and Insom christo G47.00 [place] [address] [address] Aug, Obesity E66.9 ; Snoring R06. 83 ; Fibromyalgia M79.7 ; Insomnia G47.00 and Screening cholesterol level Z13.220 [facility] [address] [address] Aug, Fibromyalgia M79.7 [facility] [address] [address] Jul, Obesity E66.9 ; Personal his tory of alcoholism F10.21 and Fibromyalgia M79.7 [facility] [address] [address] Jul, [facility] [address] [place] [id number] [address] [place] [address] Jun, Obesity E66.9 ; Chronic pain syndrome G89.4 ; Fibromyalgia M79.7 ; Insomnia G47.00 and Wellness examination Z00.00 [facility] [address] [id number] [address] [place] [address] Jun, Personal history of alcoholi sm F10.21 and Chronic pain syndrome G89.4 [facility] [address] [id number] [address] [place] [address] Jun, [facility] [address] [facility] [id number] [address] [place] [address] Jun, Fibromyalgia M79.7 [facility] [address] [facility] [id number] [address] [place] [address] May, Fibromyalgia M79.7 [facility] [address] [facility] [id number] [address] [place] [address] May, [facility] [address] [facility] [id number] [address] [place] [address] Apr, Obesity E66.9 ; Fibromyalgia M79.7 ; Insomnia G47.00 and Personal history of alcoholism F10.21 [facility] [address] [id number] [address] [place] [address] Apr, [facility] [address] [facility] [id number] [address] [place] [address] Apr, [facility] [address] [facility] [id number] [address] [place] [address] Mar, [facility] [address] [facility] [id number] [address] [place] [address] Mar, [facility] [address] [facility] [id number] [address] [place] [address] Feb, [facility] [address] [facility] [id number] [address] [place] [address] Jan, [facility] [address] [facility] [id number] [address] [place] [address] Dec, Obesity E66.9 ; Fibromyalgia M79.7 ; Personal history of alcoholism F10.21 and Insomnia G47.00 [facility] [address] [facility] [id number] [address] [place] [address] Dec, Chronic pain syndrome G89.4 [facility] [address] [facility] [id number] [address] [place] [address] Dec, [facility] [address] [facility] [id number] [address] [place] [address] Dec, [facility] [address] [facility] [id number] [address] [place] [address] Nov, [facility] [address] [facility] [id number] [address] [place] [address] Nov, [facility] [address] [place] [id number] [address] [place] [address] Nov, Fibromyalgia M79.7 ; Obesity E66.9 ; Personal history of alcoholism F10.21 ; Insomnia G47.00 and Chronic pain syndrome G89.4 [facility] [address] [place] [id number] [address] [place] [address] Nov, Fibromyalgia M79.7 [facility] [address] [place] [id number] [address] [place] [address] October, Fibromyalgia M79.7 [facility] [address] [place] [id number] [address] [place] [address] October, Obesity E66.9 ; Fibromyalgia M79.7 ; Personal history of alcoholism F10.21 and Insomnia G47.00 [facility] [address] [facility] [id number] [address] [place] [address] Sep, [facility] [address] [facility] [id number] [address] [place] [address] Aug, Fibromyalgia M79.7 ; Obesity E66.9 ; Personal history of alcoholism F10.21 and Insomnia G47.00 [facility] [address] [address] Aug, [facility] [address] [address] Jul, [facility] [address] [address] Jun, [facility] [address] [address] Jun, [facility] [address] [address] May, [facility] [address] [address] May, Fibromyalgia M79.7 ; Obesity E66.9 and Insomnia G47.00 [facility] [address] [address] May, [facility] [address] [address] May, Fibromyalgia M79.7 ; Persona l history of alcoholism F10.21 ; Insomnia G47.00 and Obesity E66.9 [place] [address] [address] Apr, [facility] [address] [address] Apr, Fibromyalgia M79.7 ; Obesity E66.9 ; Insomnia G47.00 ; Personal history of alcoholism F10.21 and Frequent falls R29.6 [facility] [address] [address] Apr, Obesity E66.9 ; Fibromyalgia M79.7 and Insomnia G47.00 [facility] [address] [address] Mar, [facility] [address] [place] [address] Mar, [facility] [address] [place] [id number] [address] [place] [address] Mar, [facility] [address] [place] [id number] [place] [address] Mar, Obesity E66.9 ; Fibromyalgia M79.7 and Personal history of alcoholism F10.21 [place] [address] [place] [id number] [place] [address] Feb, [place] [address] [place] [id number] [place] [address] Feb, Other malaise and fatigue 78 0.79 ; Abnormal weight gain 783.1 and Fibromyalgia 729.1 [place] [address] [address] Jan, [place] [address] [address] Dec, [place] [address] [address] Dec, Fibromyalgia 729.1 and Abnor mal weight gain 783.1 [place] [address] [place] [id number] [place] [address] Dec, Unspecified myalgia and myos itis 729.1 ; Abnormal weight gain 783.1 and Fibromyalgia 729.1 [place] [address] [place] [id number] [address] [place] [address] Nov, [place] [address] [place] [id number] [place] [address] Nov, Other malaise and fatigue 78 0.79 ; Unspecified myalgia and myositis 729.1 and Abnormal weight gain 783.1 [place] [address] [address] Nov, [place] [address] [place] [address] [place] [address] Nov, [facility] [address] [id number] [address] [place] [address] October, [facility] [address] [id number] [address] [place] [address] October, Unspecified myalgia and myos itis 729.1 and Scabies 133.0 [facility] [address] [id number] [address] [place] [address], [place] [address] October, [facility] [address] [id number] [address] [place] [address], [place] [address] Sep, [facility] [address] [id number] [address] [place] [address] Sep, [facility] [address] [id number] [address] [place] [address] Aug, [facility] [address] [id number] [address] [place] [address] 17 Aug, 2014 [facility] [address] [id number] [address] [place] [address] Aug, [facility] [address] [id number] [address] [place] [address] Aug, [facility] [address] [id number] [address] [place] [address] Aug, [facility] [address] [id number] [address] [place] [address] Aug, [facility] [address] [id number] [address] [place] [address], [place] [address] Aug, [facility] [address] [id number] [address] [place] [address] Aug, [facility] [address] [id number] [address] [place] [address] Aug, [facility] [address] [id number] [address] [place] [address], [place] [address] Aug, [facility] [address] [id number] [address] [place] [address], [place] [address] May, [facility] [address] [id number] [address] [place] [address], [place] [address] May, [facility] [address] [id number] [address] [place] [address], [place] [address] Mar, [facility] [address] [id number] [address] [place] [address], [place] [address] Mar, [facility] [address] [id number] [address] [place] [address], [place] [address] Feb, [facility] [address] [id number] [address] [place] [address], [place] [address] Feb, [facility] [address] [id number] [address] [place] [address], [place] [address] Feb, [facility] [address] [id number] [address] [place] [address], [place] [address] Feb, [facility] [address] [id number] [address] [place] [address], [place] [address] October, [facility] [address] [id number] [address] [place] [address], [place] [address] October, [facility] [address] [id number] [address] [place] [address], [place] [address] October, [facility] [address] [id number] [address] [place] [address], [place] [address] October, [facility] [address] [id number] [address] [place] [address], [place] [address] Sep, [facility] [address] [id number] [address] [place] [address], [place] [address] Sep, [facility] [address] [id number] [address] [place] [address], [place] [address] Sep, [facility] [address] [facility] [id number] [address] [place] [address] Sep, [facility] [address] [facility] [id number] [address] [place] [address] Jul, [facility] [address] [facility] [id number] [address] [place] [address] Jul, [facility] [address] [facility] [id number] [address] [place] [address] Jun, [facility] [address] [facility] [id number] [address] [place] [address] Jun, [facility] [address] [facility] [id number] [address] [place] [address] May, [facility] [address] [facility] [id number] [address] [place] [address] May, IMMUNIZATIONS No Known Immunizations SOCIAL HISTORY [...]
--- OUTSIDE RECORDS SUMMARY | 2020-01-12 20:00 | XMS REPORT ---
Author Author Nani Ritter Organization [facility] Address [address] [place] [address] Care Team Providers Care Scientific Research Associate Name Role Phone HENRI Ritter Unavailable PROBLEMS Type Condition ICD9-CM Code DWE52-ZG Code Onset Dates Condition S tatus SNOMED Code Problem Fibromyalgia M79.7 Active 7668563 7 Problem Personal history of alcoholism F10.21 Active 811994376 Problem Low back pain M54.5 Active 430347 009 Problem Sinusitis J32.9 Active 69299025 Problem Obesity E66.9 Active 396594525 Problem Insomnia G47.00 Active 339896659 Problem Chronic pain syndrome G89.4 Active 486062691 Problem Other chronic pain G89.29 Active 8 [id number] ALLERGIES No Information ENCOUNTERS Encounter Location Date Diagnosis [place] [address] [address] October, Fibromyalgia M79.7 [place] [address] [address] Sep, Fibromyalgia M79.7 [place] [address] [address] [place] [id number] [place] [address] 08 Jul, 2018 Fibromyalgia M79.7 [facility] [address] [place] [id number] [place] [address] Jun, Sinusitis J32.9 and BMI 40.0 -44.9, adult Z68.41 [place] [address] [address] 12 Mar, 2018 Fibromyalgia M79.7 ; Muscle spasm M62.838 and BMI 40.0-44.9, adult Z68.41 [place] [address] [place] [address] Mar, [facility] [address] [facility] [id number] [address] [place] [address] Dec, Fibromyalgia M79.7 ; Low gerson k pain M54.5 ; Other chronic pain G89.29 and BMI 45.0-49.9, adult Z68.42 [facility] [address] [facility] [id number] [address] [place] [address] Nov, [facility] [address] [facility] [id number] [address] [place] [address] Aug, Fibromyalgia M79.7 and BMI 5 0.0-59.9, adult Z68.43 [facility] [address] [facility] [id number] [address] [place] [address] 27 Aug, 2017 [facility] [address] [place] [id number] [address] [place] [address] Aug, [facility] [address] [place] [id number] [address] [place] [address] Jul, [facility] [address] [place] [id number] [place] [address] Jul, Insomnia G47.00 [facility] [address] [facility] [id number] [address] [place] [address] Jul, [facility] [address] [place] [id number] [address] [place] [address] Jul, [facility] [address] [facility] [id number] [address] [place] [address] Jul, [facility] [address] [place] [id number] [place] [address] Jul, Fibromyalgia M79.7 [facility] [address] [facility] [id number] [address] [place] [address] Jul, [facility] [address] [place] [id number] [place] [address] Jun, Chronic pain syndrome G89.4 and Fibromyalgia M79.7 [facility] [address] [facility] [id number] [address] [place] [address] Jun, Fibromyalgia M79.7 [facility] [address] [facility] [id number] [address] [place] [address] Jun, Bronchitis J40 ; Fibromyalgi a M79.7 ; Lumbago with sciatica, left side M54.42 ; Lumbago with sciatica, right side M54.41 ; Other chronic pain G89.29 and BMI 45.0-49.9, adult Z68.42 [facility] [address] [facility] [id number] [address] [place] [address] Jun, Influenza-like illness R69 [facility] [address] [place] [id number] [address] [place] [address] Jun, [facility] [address] [place] [id number] [address] [place] [address] Jun, Fibromyalgia M79.7 [facility] [address] [place] [id number] [address] [place] [address] May, Fibromyalgia M79.7 [facility] [address] [place] [id number] [address] [place] [address] Apr, Insomnia G47.00 [facility] [address] [place] [id number] [address] [place] [address] Apr, [facility] [address] [place] [id number] [address] [place] [address] Apr, [facility] [address] [place] [id number] [address] [place] [address] 06 Apr, 2017 Fibromyalgia M79.7 [facility] [address] [facility] [id number] [address] [place] [address] 16 Mar, 2017 Encounter for immunization Z 23 [facility] [address] [place] [id number] [address] [place] [address] Mar, Visit for TB skin test Z11.1 [facility] [address] [id number] [address] [place] [address] Mar, Fibromyalgia M79.7 [facility] [address] [id number] [address] [place] [address] Feb, Fibromyalgia M79.7 [facility] [address] [id number] [address] [place] [address] Feb, [facility] [address] [id number] [address] [place] [address] Feb, Fibromyalgia M79.7 [facility] [address] [facility] [id number] [address] [place] [address] Jan, Fibromyalgia M79.7 ; Obesity E66.9 ; Insomnia G47.00 and Chronic pain syndrome G89.4 [facility] [address] [facility] [id number] [address] [place] [address] Jan, [facility] [address] [id number] [address] [place] [address] Jan, [facility] [address] [facility] [id number] [address] [place] [address] Dec, [facility] [address] [facility] [id number] [address] [place] [id number] Dec, [facility] [address] [facility] [id number] [address] [place] [address] Dec, [facility] [address] [id number] [address] [place] [address] Nov, Chronic pain syndrome G89.4 [facility] [address] [facility] [id number] [address] [place] [address] October, Chronic pain syndrome G89.4 [facility] [address] [facility] [id number] [address] [place] [address] October, Chronic pain syndrome G89.4 [facility] [address] [place] [id number] [place] [address] October, [facility] [address] [address] October, Chronic pain syndrome G89.4 [facility] [address] [address] October, Chronic pain syndrome G89.4 and Fibromyalgia M79.7 [facility] [address] [address] October, Fibromyalgia M79.7 and Chron ic pain syndrome G89.4 [place] [address] [address] Sep, Encounter for immunization Z 23 [facility] [address] [address] Sep, [facility] [address] [address] Sep, [facility] [address] [address] Aug, Fibromyalgia M79.7 and Insom christo G47.00 [place] [address] [address] Aug, Obesity E66.9 ; Snoring R06. 83 ; Fibromyalgia M79.7 ; Insomnia G47.00 and Screening cholesterol level Z13.220 [facility] [address] [address] Aug, Fibromyalgia M79.7 [facility] [address] [address] Jul, Obesity E66.9 ; Personal his tory of alcoholism F10.21 and Fibromyalgia M79.7 [facility] [address] [address] Jul, [facility] [address] [place] [id number] [place] [address] Jun, Obesity E66.9 ; Chronic pain syndrome G89.4 ; Fibromyalgia M79.7 ; Insomnia G47.00 and Wellness examination Z00.00 [facility] [address] [id number] [address] [place] [address] Jun, Personal history of alcoholi sm F10.21 and Chronic pain syndrome G89.4 [facility] [address] [id number] [address] [place] [address] Jun, [facility] [address] [facility] [id number] [address] [place] [address] Jun, Fibromyalgia M79.7 [facility] [address] [facility] [id number] [address] [place] [address] May, Fibromyalgia M79.7 [facility] [address] [facility] [id number] [address] [place] [address] May, [facility] [address] [facility] [id number] [address] [place] [address] Apr, Obesity E66.9 ; Fibromyalgia M79.7 ; Insomnia G47.00 and Personal history of alcoholism F10.21 [facility] [address] [id number] [address] [place] [address] Apr, [facility] [address] [facility] [id number] [address] [place] [address] Apr, [facility] [address] [facility] [id number] [address] [place] [address] Mar, [facility] [address] [facility] [id number] [address] [place] [address] Mar, [facility] [address] [facility] [id number] [address] [place] [address] Feb, [facility] [address] [facility] [id number] [address] [place] [address] Jan, [facility] [address] [facility] [id number] [address] [place] [address] Dec, Obesity E66.9 ; Fibromyalgia M79.7 ; Personal history of alcoholism F10.21 and Insomnia G47.00 [facility] [address] [facility] [id number] [address] [place] [address] Dec, Chronic pain syndrome G89.4 [facility] [address] [facility] [id number] [address] [place] [address] Dec, [facility] [address] [facility] [id number] [address] [place] [address] Dec, [facility] [address] [facility] [id number] [address] [place] [address] Nov, [facility] [address] [facility] [id number] [address] [place] [address] Nov, [facility] [address] [place] [id number] [address] [place] [address] Nov, Fibromyalgia M79.7 ; Obesity E66.9 ; Personal history of alcoholism F10.21 ; Insomnia G47.00 and Chronic pain syndrome G89.4 [facility] [address] [place] [id number] [address] [place] [address] Nov, Fibromyalgia M79.7 [facility] [address] [place] [id number] [address] [place] [address] October, Fibromyalgia M79.7 [facility] [address] [place] [id number] [address] [place] [address] October, Obesity E66.9 ; Fibromyalgia M79.7 ; Personal history of alcoholism F10.21 and Insomnia G47.00 [facility] [address] [facility] [id number] [address] [place] [address] Sep, [facility] [address] [facility] [id number] [address] [place] [address] Aug, Fibromyalgia M79.7 ; Obesity E66.9 ; Personal history of alcoholism F10.21 and Insomnia G47.00 [facility] [address] [address] Aug, [facility] [address] [address] Jul, [facility] [address] [address] Jun, [facility] [address] [address] Jun, [facility] [address] [address] May, [facility] [address] [address] May, Fibromyalgia M79.7 ; Obesity E66.9 and Insomnia G47.00 [facility] [address] [address] May, [facility] [address] [address] May, Fibromyalgia M79.7 ; Persona l history of alcoholism F10.21 ; Insomnia G47.00 and Obesity E66.9 [place] [address] [address] Apr, [facility] [address] [address] Apr, Fibromyalgia M79.7 ; Obesity E66.9 ; Insomnia G47.00 ; Personal history of alcoholism F10.21 and Frequent falls R29.6 [facility] [address] [address] Apr, Obesity E66.9 ; Fibromyalgia M79.7 and Insomnia G47.00 [facility] [address] [address] Mar, [facility] [address] [place] [address] Mar, [facility] [address] [place] [id number] [address] [place] [address] Mar, [facility] [address] [place] [id number] [place] [address] Mar, Obesity E66.9 ; Fibromyalgia M79.7 and Personal history of alcoholism F10.21 [place] [address] [place] [id number] [place] [address] Feb, [place] [address] [place] [id number] [place] [address] Feb, Other malaise and fatigue 78 0.79 ; Abnormal weight gain 783.1 and Fibromyalgia 729.1 [place] [address] [address] Jan, [place] [address] [address] Dec, [place] [address] [address] Dec, Fibromyalgia 729.1 and Abnor mal weight gain 783.1 [place] [address] [place] [id number] [place] [address] Dec, Unspecified myalgia and myos itis 729.1 ; Abnormal weight gain 783.1 and Fibromyalgia 729.1 [place] [address] [place] [id number] [address] [place] [address] Nov, [place] [address] [place] [id number] [place] [address] Nov, Other malaise and fatigue 78 0.79 ; Unspecified myalgia and myositis 729.1 and Abnormal weight gain 783.1 [place] [address] [address] Nov, [place] [address] [place] [address] [place] [address] Nov, [facility] [address] [id number] [address] [place] [address] October, [facility] [address] [id number] [address] [place] [address] October, Unspecified myalgia and myos itis 729.1 and Scabies 133.0 [facility] [address] [id number] [address] [place] [address], [place] [address] October, [facility] [address] [id number] [address] [place] [address], [place] [address] Sep, [facility] [address] [id number] [address] [place] [address] Sep, [facility] [address] [id number] [address] [place] [address] Aug, [facility] [address] [id number] [address] [place] [address] 17 Aug, 2014 [facility] [address] [id number] [address] [place] [address] Aug, [facility] [address] [id number] [address] [place] [address] Aug, [facility] [address] [id number] [address] [place] [address] Aug, [facility] [address] [id number] [address] [place] [address] Aug, [facility] [address] [id number] [address] [place] [address], [place] [address] Aug, [facility] [address] [id number] [address] [place] [address] Aug, [facility] [address] [id number] [address] [place] [address] Aug, [facility] [address] [id number] [address] [place] [address], [place] [address] Aug, [facility] [address] [id number] [address] [place] [address], [place] [address] May, [facility] [address] [id number] [address] [place] [address], [place] [address] May, [facility] [address] [id number] [address] [place] [address], [place] [address] Mar, [facility] [address] [id number] [address] [place] [address], [place] [address] Mar, [facility] [address] [id number] [address] [place] [address], [place] [address] Feb, [facility] [address] [id number] [address] [place] [address], [place] [address] Feb, [facility] [address] [id number] [address] [place] [address], [place] [address] Feb, [facility] [address] [id number] [address] [place] [address], [place] [address] Feb, [facility] [address] [id number] [address] [place] [address], [place] [address] October, [facility] [address] [id number] [address] [place] [address], [place] [address] October, [facility] [address] [id number] [address] [place] [address], [place] [address] October, [facility] [address] [id number] [address] [place] [address], [place] [address] October, [facility] [address] [id number] [address] [place] [address], [place] [address] Sep, [facility] [address] [id number] [address] [place] [address], [place] [address] Sep, [facility] [address] [id number] [address] [place] [address], [place] [address] Sep, [facility] [address] [facility] [id number] [address] [place] [address] Sep, [facility] [address] [facility] [id number] [address] [place] [address] Jul, [facility] [address] [facility] [id number] [address] [place] [address] Jul, [facility] [address] [facility] [id number] [address] [place] [address] Jun, [facility] [address] [facility] [id number] [address] [place] [address] Jun, [facility] [address] [facility] [id number] [address] [place] [address] May, [facility] [address] [facility] [id number] [address] [place] [address] May, IMMUNIZATIONS No Known Immunizations SOCIAL HISTORY [...]
--- OUTSIDE RECORDS SUMMARY | 2020-01-12 20:01 | XMS REPORT ---
Author Author Nani MARLEY Organization [facility] Address [address] [place] [address] Care Team Providers Care Assembler Faucets Name Role Phone HUBER MARLEY Unavailable PROBLEMS Type Condition ICD9-CM Code ZLS12-KJ Code Onset Dates Condition S tatus SNOMED Code Problem Fibromyalgia M79.7 Active 2055143 7 Problem Low back pain M54.5 Active 907638 009 Problem Other chronic pain G89.29 Active 8 0785690 Problem Obesity E66.9 Active 475190125 Problem Personal history of alcoholism F10.21 Active 885503219 Problem Chronic pain syndrome G89.4 Active 500835891 Problem Insomnia G47.00 Active [id number] ALLERGIES No Information ENCOUNTERS Encounter Location Date Diagnosis [facility] [address] [id number] [address] [place] [id number] 05 Dec, 2017 Fibromyalgia M79.7 ; Low gerson k pain M54.5 ; Other chronic pain G89.29 and BMI 45.0-49.9, adult Z68.42 [facility] [address] [id number] [place] [id number] 18 Nov, 2017 [facility] [address] [id number] [address] [place] [phone] Aug, Fibromyalgia M79.7 and BMI 5 0.0-59.9, adult Z68.43 [facility] [id number] [place] [phone] Aug, [facility] [id number] [place] [phone] Aug, [facility] [id number] [place] [phone] Jul, [facility] [address] [facility] [id number] [address] [place] [id number] Jul, Insomnia G47.00 [facility] [address] [facility] [id number] [address] [place] [phone] Jul, [facility] [address] [facility] [id number] [address] [place] [phone] Jul, [facility] [address] [address] Jul, [facility] [address] [id number] [address] [place] [phone] Jul, Fibromyalgia M79.7 [facility] [address] [id number] [address] [place] [phone] Jul, [facility] [address] [address] Jun, Chronic pain syndrome G89.4 and Fibromyalgia M79.7 [facility] [id number] [place] [phone] Jun, Fibromyalgia M79.7 [facility] [address] [address] Jun, Bronchitis J40 ; Fibromyalgi a M79.7 ; Lumbago with sciatica, left side M54.42 ; Lumbago with sciatica, right side M54.41 ; Other chronic pain G89.29 and BMI 45.0-49.9, adult Z68.42 [facility] [address] [facility] [id number] [address] [place] [phone] Jun, Influenza-like illness R69 [facility] [id number] [place] [phone] Jun, [facility] [id number] [place] [phone] Jun, Fibromyalgia M79.7 [facility] [address] [place] [address] May, Fibromyalgia M79.7 [facility] [address] [id number] [address] [place] [phone] Apr, Insomnia G47.00 [facility] [address] [facility] [id number] [address] [place] [phone] Apr, [facility] [id number] [place] [phone] Apr, [facility] [address] [facility] [id number] [address] [place] [phone] Apr, Fibromyalgia M79.7 [facility] [id number] [place] [phone] 16 Mar, 2017 Encounter for immunization Z 23 [facility] [id number] [place] [phone] 10 Mar, 2017 Visit for TB skin test Z11.1 [facility] [address] [id number] [address] [place] [phone] Mar, Fibromyalgia M79.7 [facility] [id number] [place] [phone] Feb, Fibromyalgia M79.7 [facility] [address] [id number] [address] [place] [phone] Feb, [facility] [address] [id number] [address] [place] [phone] Feb, Fibromyalgia M79.7 [facility] [id number] [address] [place] [phone] Jan, Fibromyalgia M79.7 ; Obesity E66.9 ; Insomnia G47.00 and Chronic pain syndrome G89.4 [facility] [address] [facility] [id number] [address] [place] [phone] Jan, [facility] [address] [id number] [address] [place] [phone] Jan, [facility] [address] [id number] [address] [place] [phone] Dec, [facility] [address] [id number] [address] [place] [phone] Dec, [facility] [address] [id number] [address] [place] [phone] Dec, [facility] [address] [id number] [address] [place] [phone] Nov, Chronic pain syndrome G89.4 [facility] [address] [id number] [address] [place] [phone] October, Chronic pain syndrome G89.4 [facility] [address] [id number] [address] [place] [phone] October, Chronic pain syndrome G89.4 [facility] [address] [id number] [address] [place] [phone] October, [facility] [address] [id number] [address] [place] [phone] October, Chronic pain syndrome G89.4 [facility] [address] [id number] [address] [place] [phone] October, Chronic pain syndrome G89.4 and Fibromyalgia M79.7 [facility] [address] [id number] [address] [place] [phone] October, Fibromyalgia M79.7 and Chron ic pain syndrome G89.4 [facility] [address] [id number] [address] [place] [phone] Sep, Encounter for immunization Z 23 [facility] [address] [id number] [address] [place] [phone] Sep, [facility] [address] [id number] [address] [place] [phone] Sep, [facility] [address] [id number] [address] [place] [phone] Aug, Fibromyalgia M79.7 and Insom christo G47.00 [place] [address] [address] Aug, Obesity E66.9 ; Snoring R06. 83 ; Fibromyalgia M79.7 ; Insomnia G47.00 and Screening cholesterol level Z13.220 [place] [address] [address] Aug, Fibromyalgia M79.7 [place] [address] [address] Jul, Obesity E66.9 ; Personal his tory of alcoholism F10.21 and Fibromyalgia M79.7 [place] [address] [address] Jul, [place] [address] [address] Jun, Obesity E66.9 ; Chronic pain syndrome G89.4 ; Fibromyalgia M79.7 ; Insomnia G47.00 and Wellness examination Z00.00 [place] [address] [id number] Jun, Personal history of alcoholi sm F10.21 and Chronic pain syndrome G89.4 [place] [address] [address] Jun, [place] [address] [address] Jun, Fibromyalgia M79.7 [place] [address] [phone] May, Fibromyalgia M79.7 [place] [id number] [place] [phone] May, [place] [address] [address] Apr, Obesity E66.9 ; Fibromyalgia M79.7 ; Insomnia G47.00 and Personal history of alcoholism F10.21 [facility] [address] [id number] [address] [place] [phone] Apr, [facility] [address] [id number] [address] [place] [phone] Apr, [facility] [address] [id number] [address] [place] [phone] Mar, [facility] [address] [id number] [address] [place] [phone] Mar, [facility] [address] [id number] [address] [place] [phone] Feb, [facility] [address] [id number] [address] [place] [phone] Jan, [facility] [address] [facility] [id number] [address] [place] [phone] Dec, Obesity E66.9 ; Fibromyalgia M79.7 ; Personal history of alcoholism F10.21 and Insomnia G47.00 [facility] [address] [id number] [address] [place] [phone] Dec, Chronic pain syndrome G89.4 [facility] [address] [facility] [id number] [address] [place] [phone] Dec, [facility] [address] [facility] [id number] [address] [place] [phone] Dec, [facility] [address] [id number] [address] [place] [phone] Nov, [facility] [address] [facility] [id number] [address] [place] [phone] Nov, [facility] [address] [facility] [id number] [address] [place] [phone] Nov, Fibromyalgia M79.7 ; Obesity E66.9 ; Personal history of alcoholism F10.21 ; Insomnia G47.00 and Chronic pain syndrome G89.4 [facility] [address] [facility] [id number] [address] [place] [phone] Nov, Fibromyalgia M79.7 [facility] [address] [facility] [id number] [address] [place] [phone] October, Fibromyalgia M79.7 [facility] [address] [facility] [id number] [address] [place] [phone] October, Obesity E66.9 ; Fibromyalgia M79.7 ; Personal history of alcoholism F10.21 and Insomnia G47.00 [facility] [address] [facility] [id number] [address] [place] [phone] Sep, [facility] [address] [facility] [id number] [address] [place] [phone] Aug, Fibromyalgia M79.7 ; Obesity E66.9 ; Personal history of alcoholism F10.21 and Insomnia G47.00 [facility] [address] [facility] [id number] [address] [place] [phone] Aug, [facility] [address] [facility] [id number] [address] [place] [phone] Jul, [facility] [address] [facility] [id number] [address] [place] [phone] Jun, [facility] [address] [facility] [id number] [address] [place] [phone] Jun, [facility] [address] [facility] [id number] [address] [place] [phone] May, [facility] [address] [facility] [id number] [address] [place] [phone] May, Fibromyalgia M79.7 ; Obesity E66.9 and Insomnia G47.00 [facility] [address] [facility] [id number] [address] [place] [phone] May, [facility] [address] [facility] [id number] [address] [place] [phone] May, Fibromyalgia M79.7 ; Persona l history of alcoholism F10.21 ; Insomnia G47.00 and Obesity E66.9 [place] [address] [address] Apr, [place] [id number] [place] [phone] Apr, Fibromyalgia M79.7 ; Obesity E66.9 ; Insomnia G47.00 ; Personal history of alcoholism F10.21 and Frequent falls R29.6 [place] [address] [address] Apr, Obesity E66.9 ; Fibromyalgia M79.7 and Insomnia G47.00 [place] [address] [address] Mar, [address] [id number] Mar, [place] [address] [address] Mar, [address] [address] Mar, Obesity E66.9 ; Fibromyalgia M79.7 and Personal history of alcoholism F10.21 [place] [address] [address] Feb, [place] [address] [id number] Feb, Other malaise and fatigue 78 0.79 ; Abnormal weight gain 783.1 and Fibromyalgia 729.[address] [address] Jan, [place] [address] [id number] Dec, [place] [address] [id number] Dec, Fibromyalgia 729.1 and Abnor mal weight gain 783.1 [facility] [address] [id number] [address] [place] [phone] Dec, Unspecified myalgia and myos itis 729.1 ; Abnormal weight gain 783.1 and Fibromyalgia 729.1 [facility] [address] [id number] [address] [place] [phone] Nov, [facility] [address] [id number] [address] [place] [phone] Nov, Other malaise and fatigue 78 0.79 ; Unspecified myalgia and myositis 729.1 and Abnormal weight gain 783.1 [facility] [address] [id number] [address] [place] [phone] Nov, [facility] [address] [id number] [address] [place] [phone] Nov, [facility] [address] [id number] [address] [place] [phone] October, [facility] [address] [id number] [address] [place] [phone] October, Unspecified myalgia and myos itis 729.1 and Scabies 133.0 [facility] [address] [id number] [address] [place] [phone] October, [facility] [address] [id number] [address] [place] [phone] Sep, [facility] [address] [id number] [address] [place] [phone] Sep, [facility] [address] [facility] [id number] [address] [place] [phone] Aug, [facility] [address] [id number] [address] [place] [phone] Aug, [facility] [place] [facility] [address] [id number] [address] [place] [address], [place] [address] 17 Aug, 2014 [facility] [address] [id number] [address] [place] [address], [place] [address] 17 Aug, 2014 [facility] [address] [id number] [address] [place] [address], [place] [address] 12 Aug, 2014 [facility] [address] [id number] [address] [place] [address], [place] [address] 12 Aug, 2014 [facility] [address] [id number] [address] [place] [address], [place] [id number] 11 Aug, 2014 [facility] [address] [id number] [address] [place] [address], [place] [id number] 11 Aug, 2014 [facility] [address] [id number] [address] [place] [address], [place] [address] 10 Aug, 2014 [facility] [address] [id number] [address] [place] [address], [place] [address] 10 Aug, 2014 [facility] [address] [id number] [address] [place] [address], [place] [address] 04 May, 2014 [facility] [address] [id number] [address] [place] [address], [place] [address] 04 May, 2014 [facility] [address] [id number] [address] [place] [address], [place] [address] 07 Mar, 2014 [facility] [address] [id number] [address] [place] [address], [place] [address] 07 Mar, 2014 [facility] [address] [id number] [address] [place] [address], [place] [address] 17 Feb, 2014 [facility] [address] [id number] [address] [place] [address], [place] [address] 17 Feb, 2014 [facility] [address] [id number] [address] [place] [address], [place] [phone] 11 Feb, 2014 [facility] [address] [id number] [address] [place] [address], [place] [address] Feb, [facility] [address] [id number] [address] [place] [phone] October, [facility] [address] [id number] [address] [place] [phone] October, [facility] [address] [id number] [address] [place] [phone] October, [facility] [address] [id number] [address] [place] [phone] October, [facility] [address] [id number] [address] [place] [phone] Sep, [facility] [address] [id number] [address] [place] [phone] Sep, [facility] [address] [id number] [address] [place] [phone] Sep, [facility] [address] [id number] [address] [place] [phone] Sep, [facility] [address] [id number] [address] [place] [phone] Jul, [facility] [address] [id number] [address] [place] [phone] Jul, [facility] [address] [id number] [address] [place] [phone] Jun, [facility] [address] [id number] [address] [place] [phone] Jun, [facility] [address] [id number] [address] [place] [phone] May, [facility] [address] [id number] [address] [place] [phone] May, IMMUNIZATIONS No Known Immunizations SOCIAL HISTORY Never Assessed REASON FOR VISIT Medication refill request PLAN OF CARE VITAL SIGNS MEDICATIONS Medication Instructions Dosage Frequency Start Date End Date Duration S tatus Lyrica 75 MG Orally Once a day 1 capsule 24h 07 days Active RESULTS No Results PROCEDURES No Known procedures INSTRUCTIONS MEDICATIONS ADMINISTERED No Known Medications MEDICAL (GENERAL) HISTORY Type Description Date Medical History fibromyalgia Medical History insomnia Medical History obesity Surgical History ganglion cyst removal 1996 Surgical History section 2004 Hospitalization History surgeries
--- OUTSIDE RECORDS SUMMARY | 2020-01-12 20:01 | XMS REPORT ---
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 Name Role Phone HUBER MARLEY Unavailable PROBLEMS Type Condition ICD9-CM Code JAD37-LC Code Onset Dates Condition S tatus SNOMED Code Problem Fibromyalgia M79.7 Active 5175396 7 Problem Low back pain M54.5 Active 051678 009 Problem Other chronic pain G89.29 Active 8 6828824 Problem Obesity E66.9 Active 874012831 Problem Personal history of alcoholism F10.21 Active 620113261 Problem Chronic pain syndrome G89.4 Active 539094746 Problem Insomnia G47.00 Active [id number] ALLERGIES No Information ENCOUNTERS Encounter Location Date Diagnosis [facility] [address] [id number] [address] [place] [address] 12 Mar, 2018 Fibromyalgia M79.7 ; Muscle spasm M62.838 and BMI 40.0-44.9, adult Z68.41 [facility] [address] [id number] [address] [place] [address] 08 Mar, 2018 [facility] [address] [id number] [address] [place] [phone] 05 Dec, 2017 Fibromyalgia M79.7 ; Low gerson k pain M54.5 ; Other chronic pain G89.29 and BMI 45.0-49.9, adult Z68.42 [facility] [address] [address] 18 Nov, 2017 [facility] [address] [id number] [address] [place] [address] Aug, Fibromyalgia M79.7 and BMI 5 0.0-59.9, adult Z68.43 [facility] [id number] [place] [address] Aug, [facility] [address] [facility] [id number] [address] [place] [address] Aug, [facility] [address] [facility] [id number] [address] [place] [address] Jul, [facility] [address] [facility] [id number] [address] [place] [address] Jul, Insomnia G47.00 [facility] [address] [facility] [id number] [address] [place] [address] Jul, [facility] [address] [facility] [id number] [address] [place] [address] Jul, [facility] [address] [id number] [address] [place] [address] Jul, [facility] [address] [facility] [id number] [address] [place] [address] Jul, Fibromyalgia M79.7 [facility] [address] [facility] [id number] [address] [place] [address] Jul, [facility] [address] [id number] [address] [place] [phone] Jun, Chronic pain syndrome G89.4 and Fibromyalgia M79.7 [facility] [address] [id number] [address] [place] [address] Jun, Fibromyalgia M79.7 [facility] [address] [id number] [address] [place] [address] Jun, Bronchitis J40 ; Fibromyalgi a M79.7 ; Lumbago with sciatica, left side M54.42 ; Lumbago with sciatica, right side M54.41 ; Other chronic pain G89.29 and BMI 45.0-49.9, adult Z68.42 [facility] [address] [facility] [id number] [address] [place] [address] Jun, Influenza-like illness R69 [facility] [address] [facility] [id number] [address] [place] [address] Jun, [facility] [address] [facility] [id number] [address] [place] [address] Jun, Fibromyalgia M79.7 [facility] [address] [facility] [id number] [address] [place] [address] May, Fibromyalgia M79.7 [facility] [address] [facility] [id number] [address] [place] [address] Apr, Insomnia G47.00 [facility] [address] [id number] [address] [place] [address] Apr, [facility] [address] [facility] [id number] [address] [place] [address] Apr, [facility] [address] [id number] [address] [place] [address] Apr, Fibromyalgia M79.7 [facility] [address] [id number] [address] [place] [address] 16 Mar, 2017 Encounter for immunization Z 23 [facility] [address] [facility] [id number] [address] [place] [address] 10 Mar, 2017 Visit for TB skin test Z11.1 [facility] [address] [id number] [address] [place] [address] Mar, Fibromyalgia M79.7 [facility] [address] [facility] [id number] [address] [place] [address] Feb, Fibromyalgia M79.7 [facility] [address] [id number] [address] [place] [address] Feb, [facility] [address] [facility] [id number] [address] [place] [address] Feb, Fibromyalgia M79.7 [facility] [address] [id number] [address] [place] [address] Jan, Fibromyalgia M79.7 ; Obesity E66.9 ; Insomnia G47.00 and Chronic pain syndrome G89.4 [facility] [address] [id number] [address] [place] [phone] Jan, [facility] [address] [id number] [address] [place] [address] Jan, [facility] [address] [id number] [address] [place] [address] Dec, [facility] [address] [id number] [address] [place] [address] Dec, [facility] [address] [id number] [address] [place] [address] Dec, [facility] [address] [id number] [address] [place] [phone] Nov, Chronic pain syndrome G89.4 [facility] [address] [id number] [address] [place] [address] October, Chronic pain syndrome G89.4 [facility] [address] [id number] [address] [place] [address] October, Chronic pain syndrome G89.4 [facility] [address] [id number] [address] [place] [address] October, [facility] [address] [facility] [id number] [address] [place] [address] October, Chronic pain syndrome G89.4 [facility] [address] [id number] [address] [place] [phone] October, Chronic pain syndrome G89.4 and Fibromyalgia M79.7 [facility] [address] [facility] [id number] [address] [place] [address] October, Fibromyalgia M79.7 and Chron ic pain syndrome G89.4 [facility] [address] [id number] [address] [place] [phone] Sep, Encounter for immunization Z 23 [facility] [address] [address] Sep, [facility] [address] [address] Sep, [address] [address] Aug, Fibromyalgia M79.7 and Insom christo G47.00 [place] [address] [address] Aug, Obesity E66.9 ; Snoring R06. 83 ; Fibromyalgia M79.7 ; Insomnia G47.00 and Screening cholesterol level Z13.220 [address] [address] [address] [address] Aug, Fibromyalgia M79.7 [place] [address] [address] Jul, Obesity E66.9 ; Personal his tory of alcoholism F10.21 and Fibromyalgia M79.7 [place] [address] [address] Jul, [place] [address] [address] Jun, Obesity E66.9 ; Chronic pain syndrome G89.4 ; Fibromyalgia M79.7 ; Insomnia G47.00 and Wellness examination Z00.00 [place] [address] [address] Jun, Personal history of alcoholi sm F10.21 and Chronic pain syndrome G89.4 [place] [address] [address] Jun, [place] [address] [address] Jun, Fibromyalgia M79.7 [place] [id number] [place] [address] May, Fibromyalgia M79.7 [facility] [address] [facility] [id number] [address] [place] [address] May, [facility] [address] [facility] [id number] [address] [place] [address] Apr, Obesity E66.9 ; Fibromyalgia M79.7 ; Insomnia G47.00 and Personal history of alcoholism F10.21 [facility] [address] [id number] [address] [place] [address] Apr, [facility] [address] [id number] [address] [place] [address] Apr, [facility] [address] [facility] [id number] [address] [place] [phone] Mar, [facility] [address] [facility] [id number] [address] [place] [phone] Mar, [facility] [address] [facility] [id number] [address] [place] [phone] Feb, [facility] [address] [facility] [id number] [address] [place] [phone] Jan, [facility] [address] [facility] [id number] [address] [place] [address] Dec, Obesity E66.9 ; Fibromyalgia M79.7 ; Personal history of alcoholism F10.21 and Insomnia G47.00 [facility] [address] [id number] [address] [place] [address] Dec, Chronic pain syndrome G89.4 [facility] [address] [facility] [id number] [address] [place] [phone] Dec, [facility] [address] [facility] [id number] [address] [place] [phone] Dec, [facility] [address] [facility] [id number] [address] [place] [address] Nov, [facility] [address] [facility] [id number] [address] [place] [phone] Nov, [facility] [address] [facility] [id number] [address] [place] [address] Nov, Fibromyalgia M79.7 ; Obesity E66.9 ; Personal history of alcoholism F10.21 ; Insomnia G47.00 and Chronic pain syndrome G89.4 [facility] [address] [facility] [id number] [address] [place] [address] Nov, Fibromyalgia M79.7 [facility] [address] [id number] [address] [place] [address] October, Fibromyalgia M79.7 [facility] [address] [id number] [address] [place] [address] October, Obesity E66.9 ; Fibromyalgia M79.7 ; Personal history of alcoholism F10.21 and Insomnia G47.00 [facility] [address] [facility] [id number] [address] [place] [address] Sep, [facility] [address] [facility] [id number] [address] [place] [address] Aug, Fibromyalgia M79.7 ; Obesity E66.9 ; Personal history of alcoholism F10.21 and Insomnia G47.00 [facility] [address] [id number] [address] [place] [address] Aug, [facility] [address] [facility] [id number] [address] [place] [address] Jul, [facility] [address] [facility] [id number] [address] [place] [phone] Jun, [facility] [address] [facility] [id number] [address] [place] [phone] Jun, [facility] [address] [facility] [id number] [address] [place] [phone] May, [facility] [address] [id number] [address] [place] [address] May, Fibromyalgia M79.7 ; Obesity E66.9 and Insomnia G47.00 [place] [address] [id number] May, [place] [address] [address] May, Fibromyalgia M79.7 ; Persona l history of alcoholism F10.21 ; Insomnia G47.00 and Obesity E66.9 [place] [address] [address] Apr, [place] [address] [address] Apr, Fibromyalgia M79.7 ; Obesity E66.9 ; Insomnia G47.00 ; Personal history of alcoholism F10.21 and Frequent falls R29.6 [place] [address] [address] Apr, Obesity E66.9 ; Fibromyalgia M79.7 and Insomnia G47.00 [place] [address] [address] Mar, [place] [address] [address] Mar, [place] [address] [address] Mar, [place] [address] [address] Mar, Obesity E66.9 ; Fibromyalgia M79.7 and Personal history of alcoholism F10.21 [place] [address] [address] Feb, [place] [address] [address] Feb, Other malaise and fatigue 78 0.79 ; Abnormal weight gain 783.1 and Fibromyalgia 729.1 [facility] [address] [id number] [address] [place] [address] Jan, [facility] [address] [id number] [address] [place] [address] Dec, [facility] [address] [id number] [address] [place] [address] Dec, Fibromyalgia 729.1 and Abnor mal weight gain 783.1 [facility] [address] [id number] [address] [place] [address] Dec, Unspecified myalgia and myos itis 729.1 ; Abnormal weight gain 783.1 and Fibromyalgia 729.1 [facility] [address] [id number] [address] [place] [address] Nov, [facility] [address] [id number] [address] [place] [address] Nov, Other malaise and fatigue 78 0.79 ; Unspecified myalgia and myositis 729.1 and Abnormal weight gain 783.1 [facility] [address] [id number] [address] [place] [address] Nov, [facility] [address] [facility] [id number] [address] [place] [phone] Nov, [facility] [address] [id number] [address] [place] [address] October, [facility] [address] [id number] [address] [place] [address] October, Unspecified myalgia and myos itis 729.1 and Scabies 133.0 [facility] [address] [id number] [address] [place] [phone] October, [facility] [address] [facility] [id number] [address] [place] [phone] Sep, [facility] [address] [id number] [address] [place] [address], [place] [address] 13 Sep, 2014 [facility] [address] [id number] [address] [place] [address], [place] [address] 17 Aug, 2014 [facility] [address] [id number] [address] [place] [address], [place] [address] 17 Aug, 2014 [facility] [address] [id number] [address] [place] [address], [place] [address] 17 Aug, 2014 [facility] [address] [id number] [address] [place] [address], [place] [address] 17 Aug, 2014 [facility] [address] [id number] [address] [place] [address], [place] [address] 12 Aug, 2014 [facility] [address] [id number] [address] [place] [address], [place] [address] 12 Aug, 2014 [facility] [address] [id number] [address] [place] [address], [place] [address] 11 Aug, 2014 [facility] [address] [id number] [address] [place] [address], [place] [address] 11 Aug, 2014 [facility] [address] [id number] [address] [place] [address], [place] [address] 10 Aug, 2014 [facility] [address] [id number] [address] [place] [address], [place] [address] 10 Aug, 2014 [facility] [address] [id number] [address] [place] [address], [place] [address] 04 May, 2014 [facility] [address] [id number] [address] [place] [address], [place] [address] May, [facility] [address] [id number] [address] [place] [address], [place] [address] Mar, [facility] [address] [id number] [address] [place] [address], [place] [address] Mar, [facility] [address] [id number] [address] [place] [address], [place] [address] Feb, [facility] [address] [id number] [address] [place] [address], [place] [address] Feb, [facility] [address] [id number] [address] [place] [address], [place] [address] Feb, [facility] [address] [id number] [address] [place] [address], [place] [address] Feb, [facility] [address] [id number] [address] [place] [address], [place] [address] October, [facility] [address] [id number] [address] [place] [address], [place] [address] October, [facility] [address] [id number] [address] [place] [address], [place] [address] October, [facility] [address] [id number] [address] [place] [address], [place] [address] October, [facility] [address] [id number] [address] [place] [address], [place] [address] Sep, [facility] [address] [id number] [address] [place] [address], [place] [address] Sep, [facility] [address] [id number] [address] [place] [address], [place] [address] Sep, [facility] [address] [id number] [address] [place] [address], [place] [address] Sep, [facility] [address] [id number] [address] [place] [address], [place] [address] Jul, [facility] [address] [id number] [address] [place] [address], [place] [address] Jul, [facility] [address] [id number] [address] [place] [address], [place] [address] Jun, [facility] [address] [id number] [address] [place] [address], [place] [address] Jun, [facility] [address] [id number] [address] [place] [phone] May, [facility] [address] [facility] [id number] [address] [place] [phone] May, IMMUNIZATIONS No Known Immunizations SOCIAL HISTORY Never Assessed REASON FOR VISIT Medication question PLAN OF CARE VITAL SIGNS MEDICATIONS Unknown Medications RESULTS No Results PROCEDURES No Known procedures INSTRUCTIONS MEDICATIONS ADMINISTERED No Known Medications MEDICAL (GENERAL) HISTORY Type Description Date Medical History fibromyalgia Medical History insomnia Medical History obesity Surgical History ganglion cyst removal 1996 Surgical History section 2003 Hospitalization History surgeries
--- OUTSIDE RECORDS SUMMARY | 2020-01-12 20:01 | XMS REPORT ---
Author Author Nani MARLEY Organization [facility] Address [address] [place] [address] Care Team Providers Care Redipper Name Role Phone HUBER MARLEY Unavailable PROBLEMS Type Condition ICD9-CM Code CXF87-CC Code Onset Dates Condition S tatus SNOMED Code Problem Fibromyalgia M79.7 Active 0516327 7 Problem Low back pain M54.5 Active 965893 009 Problem Other chronic pain G89.29 Active 8 4730688 Problem Obesity E66.9 Active 030114080 Problem Personal history of alcoholism F10.21 Active 759705861 Problem Chronic pain syndrome G89.4 Active 089955046 Problem Insomnia G47.00 Active 683794479 ALLERGIES Substance Reaction Event Type Date Status Tramadol HCl rash Drug Allergy Dec, Active Penicillin V Potassium Unknown Drug Allergy Dec, Activ e Bactrim Unknown Drug Allergy Dec, Active Clindamycin Unknown Drug Allergy Dec, Active ENCOUNTERS Encounter Location Date Diagnosis [facility] [id number] [place] [id number] Dec, Fibromyalgia M79.7 ; Low gerson k pain M54.5 ; Other chronic pain G89.29 and BMI 45.0-49.9, adult Z68.42 [facility] [address] [id number] [address] [place] [phone] Nov, [facility] [id number] [address] [place] [phone] Aug, Fibromyalgia M79.7 and BMI 5 0.0-59.9, adult Z68.43 [facility] [address] [id number] [address] [place] [id number] Aug, [facility] [id number] [address] [place] [id number] Aug, [facility] [address] [id number] [address] [place] [phone] Jul, [facility] [address] [facility] [address] [facility] [id number] [address] [place] [id number] Jul, Insomnia G47.00 [facility] [id number] [place] [id number] Jul, [facility] [id number] [place] [phone] Jul, [facility] [address] [address] Jul, [facility] [id number] [place] [id number] Jul, Fibromyalgia M79.7 [facility] [address] [id number] Jul, [facility] [address] [id number] [place] [phone] Jun, Chronic pain syndrome G89.4 and Fibromyalgia M79.7 [facility] [address] [id number] Jun, Fibromyalgia M79.7 [facility] [id number] [place] [id number] Jun, Bronchitis J40 ; Fibromyalgi a M79.7 ; Lumbago with sciatica, left side M54.42 ; Lumbago with sciatica, right side M54.41 ; Other chronic pain G89.29 and BMI 45.0-49.9, adult Z68.42 [facility] [address] [id number] [address] [place] [id number] Jun, Influenza-like illness R69 [facility] [address] [id number] [address] [place] [phone] Jun, [facility] [address] [address] [facility] [id number] [address] [place] [id number] Jun, Fibromyalgia M79.7 [facility] [address] [facility] [id number] [address] [place] [id number] May, Fibromyalgia M79.7 [facility] [address] [facility] [id number] [address] [place] [id number] Apr, Insomnia G47.00 [facility] [address] [facility] [id number] [address] [place] [id number] Apr, [facility] [address] [facility] [id number] [address] [place] [id number] Apr, [facility] [address] [id number] [address] [place] [id number] Apr, Fibromyalgia M79.7 [facility] [address] [id number] [address] [place] [id number] 16 Mar, 2017 Encounter for immunization Z 23 [facility] [address] [facility] [id number] [address] [place] [id number] 10 Mar, 2017 Visit for TB skin test Z11.1 [facility] [address] [facility] [id number] [address] [place] [id number] Mar, Fibromyalgia M79.7 [facility] [address] [id number] [address] [place] [id number] Feb, Fibromyalgia M79.7 [facility] [address] [facility] [id number] [address] [place] [id number] Feb, [facility] [address] [facility] [id number] [address] [place] [id number] Feb, Fibromyalgia M79.7 [facility] [address] [id number] [address] [place] [id number] Jan, Fibromyalgia M79.7 ; Obesity E66.9 ; Insomnia G47.00 and Chronic pain syndrome G89.4 [facility] [id number] [address] [place] [phone] Jan, [facility] [address] [id number] [address] [place] [id number] Jan, [facility] [address] [id number] [address] [place] [id number] Dec, [facility] [address] [id number] [address] [place] [id number] Dec, [facility] [address] [id number] [address] [place] [id number] Dec, [facility] [address] [id number] [address] [place] [id number] Nov, Chronic pain syndrome G89.4 [facility] [address] [id number] [address] [place] [phone] October, Chronic pain syndrome G89.4 [facility] [address] [id number] [address] [place] [id number] October, Chronic pain syndrome G89.4 [facility] [address] [id number] [address] [place] [id number] October, [facility] [address] [id number] [address] [place] [phone] October, Chronic pain syndrome G89.4 [facility] [address] [id number] [address] [place] [id number] October, Chronic pain syndrome G89.4 and Fibromyalgia M79.7 [facility] [address] [id number] [address] [place] [id number] October, Fibromyalgia M79.7 and Chron ic pain syndrome G89.4 [facility] [address] [id number] [address] [place] [id number] Sep, Encounter for immunization Z 23 [facility] [address] [id number] [address] [place] [id number] Sep, [facility] [address] [facility] [id number] [address] [place] [id number] Sep, [facility] [address] [facility] [id number] [address] [place] [id number] Aug, Fibromyalgia M79.7 and Insom christo G47.00 [facility] [address] [facility] [id number] [address] [place] [id number] Aug, Obesity E66.9 ; Snoring R06. 83 ; Fibromyalgia M79.7 ; Insomnia G47.00 and Screening cholesterol level Z13.220 [facility] [address] [facility] [id number] [address] [place] [id number] Aug, Fibromyalgia M79.7 [facility] [id number] [address] [place] [id number] Jul, Obesity E66.9 ; Personal his tory of alcoholism F10.21 and Fibromyalgia M79.7 [facility] [id number] [address] [place] [id number] Jul, [facility] [id number] [address] [place] [id number] Jun, Obesity E66.9 ; Chronic pain syndrome G89.4 ; Fibromyalgia M79.7 ; Insomnia G47.00 and Wellness examination Z00.00 [place] [id number] [address] [place] [id number] Jun, Personal history of alcoholi sm F10.21 and Chronic pain syndrome G89.4 [facility] [address] [facility] [id number] [address] [place] [id number] Jun, [facility] [id number] [address] [place] [id number] Jun, Fibromyalgia M79.7 [facility] [address] [facility] [id number] [address] [place] [phone] May, Fibromyalgia M79.7 [facility] [id number] [address] [place] [id number] May, [facility] [address] [id number] [address] [place] [id number] Apr, Obesity E66.9 ; Fibromyalgia M79.7 ; Insomnia G47.00 and Personal history of alcoholism F10.21 [facility] [address] [id number] [address] [place] [id number] Apr, [facility] [address] [id number] [address] [place] [id number] Apr, [facility] [address] [id number] [address] [place] [id number] Mar, [facility] [address] [id number] [address] [place] [phone] Mar, [facility] [address] [address] [facility] [id number] [address] [place] [phone] Feb, [facility] [address] [id number] [address] [place] [phone] Jan, [facility] [address] [facility] [id number] [address] [place] [id number] Dec, Obesity E66.9 ; Fibromyalgia M79.7 ; Personal history of alcoholism F10.21 and Insomnia G47.00 [facility] [address] [facility] [id number] [address] [place] [id number] Dec, Chronic pain syndrome G89.4 [facility] [address] [id number] [address] [place] [phone] Dec, [facility] [address] [id number] [address] [place] [id number] Dec, [facility] [address] [facility] [id number] [address] [place] [phone] Nov, [facility] [address] [facility] [id number] [address] [place] [id number] Nov, [facility] [address] [id number] [address] [place] [phone] 15 Nov, 2015 Fibromyalgia M79.7 ; Obesity E66.9 ; Personal history of alcoholism F10.21 ; Insomnia G47.00 and Chronic pain syndrome G89.4 [facility] [id number] [place] [id number] 10 Nov, 2015 Fibromyalgia M79.7 [facility] [address] [address] October, Fibromyalgia M79.7 [facility] [address] [id number] October, Obesity E66.9 ; Fibromyalgia M79.7 ; Personal history of alcoholism F10.21 and Insomnia G47.00 [facility] [address] [id number] Sep, [facility] [address] [id number] Aug, Fibromyalgia M79.7 ; Obesity E66.9 ; Personal history of alcoholism F10.21 and Insomnia G47.00 [facility] [address] [id number] Aug, [facility] [address] [id number] Jul, [facility] [address] [phone] Jun, [facility] [address] [id number] Jun, [facility] [address] [id number] May, [facility] [address] [id number] May, Fibromyalgia M79.7 ; Obesity E66.9 and Insomnia G47.00 [facility] [address] [id number] May, [facility] [address] [address] May, Fibromyalgia M79.7 ; Personrenny l history of alcoholism F10.21 ; Insomnia G47.00 and Obesity E66.9 [place] [address] [id number] Apr, [place] [address] [id number] Apr, Fibromyalgia M79.7 ; Obesity E66.9 ; Insomnia G47.00 ; Personal history of alcoholism F10.21 and Frequent falls R29.6 [place] [address] [address] Apr, Obesity E66.9 ; Fibromyalgia M79.7 and Insomnia G47.00 [address] [address] [id number] Mar, [place] [address] [address] Mar, [place] [address] [id number] Mar, [place] [address] [id number] Mar, Obesity E66.9 ; Fibromyalgia M79.7 and Personal history of alcoholism F10.21 [place] [address] [id number] Feb, [place] [address] [id number] Feb, Other malaise and fatigue 78 0.79 ; Abnormal weight gain 783.1 and Fibromyalgia 729.1 [place] [address] [id number] Jan, [place] [address] [id number] [address] [place] [id number] Dec, [facility] [address] [id number] [address] [place] [phone] Dec, Fibromyalgia 729.1 and Abnor mal weight gain 783.1 [facility] [address] [address] [facility] [id number] [address] [place] [phone] Dec, Unspecified myalgia and myos itis 729.1 ; Abnormal weight gain 783.1 and Fibromyalgia 729.1 [facility] [address] [id number] [address] [place] [id number] Nov, [facility] [address] [facility] [id number] [address] [place] [id number] Nov, Other malaise and fatigue 78 0.79 ; Unspecified myalgia and myositis 729.1 and Abnormal weight gain 783.1 [facility] [address] [id number] [address] [place] [id number] Nov, [facility] [address] [id number] [address] [place] [id number] Nov, [facility] [address] [facility] [id number] [address] [place] [phone] October, [facility] [address] [id number] [address] [place] [id number] October, Unspecified myalgia and myos itis 729.1 and Scabies 133.0 [facility] [address] [id number] [address] [place] [phone] October, [facility] [address] [facility] [id number] [address] [place] [id number] Sep, [facility] [address] [id number] [address] [place] [phone] Sep, [facility] [address] [facility] [id number] [address] [place] [phone] Aug, 2014 [facility] [address] [id number] [facility] [address] 17 Aug, 2014 [facility] [address] [id number] [address] [place] [address], [place] [address] 17 Aug, 2014 [facility] [address] [id number] [address] [place] [address], [place] [address] 17 Aug, 2014 [facility] [address] [id number] [address] [place] [address], [place] [address] 12 Aug, 2014 [facility] [address] [id number] [address] [place] [address], [place] [address] 12 Aug, 2014 [facility] [address] [id number] [address] [place] [address], [place] [address] 11 Aug, 2014 [facility] [address] [id number] [address] [place] [address], [place] [address] 11 Aug, 2014 [facility] [address] [id number] [address] [place] [address], [place] [address] 10 Aug, 2014 [facility] [address] [id number] [address] [place] [address], [place] [address] 10 Aug, 2014 [facility] [address] [id number] [address] [place] [address], [place] [address] 04 May, 2014 [facility] [address] [id number] [address] [place] [address], [place] [address] May, [facility] [address] [id number] [address] [place] [address], [place] [address] Mar, [facility] [address] [id number] [address] [place] [address], [place] [address] Mar, [facility] [address] [id number] [address] [place] [address], [place] [address] 17 Feb, 2014 [facility] [address] [id number] [address] [place] [address], [place] [address] 17 Feb, 2014 [facility] [address] [id number] [address] [place] [address], [place] [address] Feb, [facility] [address] [id number] [address] [place] [address], [place] [address] Feb, [facility] [address] [id number] [address] [place] [address], [place] [address] October, [facility] [address] [id number] [address] [place] [address], [place] [address] October, [facility] [address] [id number] [address] [place] [address], [place] [address] October, [facility] [address] [id number] [address] [place] [address], [place] [address] October, [facility] [address] [id number] [address] [place] [address], [place] [address] Sep, [facility] [address] [id number] [address] [place] [address], [place] [address] Sep, [facility] [address] [id number] [address] [place] [address], [place] [address] Sep, [facility] [address] [id number] [address] [place] [address], [place] [address] Sep, [facility] [address] [id number] [address] [place] [address], [place] [address] Jul, [facility] [address] [id number] [address] [place] [address], [place] [address] Jul, [facility] [address] [id number] [address] [place] [phone] Jun, [facility] [address] [id number] [address] [place] [address], [place] [address] Jun, [facility] [address] [id number] [address] [place] [address], [place] [address] May, [facility] [address] [id number] [address] [place] [id number] May, IMMUNIZATIONS No Known Immunizations SOCIAL HISTORY Never Assessed REASON FOR VISIT Pain management (chronic)-Romy VIEIRA PLAN OF CARE Activity Details Follow Up 6 Months Reason: VITAL SIGNS Height 64 in 2017-12-17 Weight 289.0 lbs 2017-12-17 Temperature 97.5 degrees Fahrenheit 2017-12-17 Heart Rate 96 bpm 2017-12-17 Respiratory Rate 20 2017-12-17 BMI 49.6 kg/m2 2017-12-17 Blood pressure systolic 138 mmHg 2017-12-17 Blood pressure diastolic 88 mmHg 2017-12-17 MEDICATIONS Medication Instructions Dosage Frequency Start Date End Date Duration S tatus Duloxetine HCl 60 MG TAKE ONE CAPSULE BY MOUTH ONCE DAILY 30 Active Lyrica 75 MG Orally Once a day 1 capsule 24h 30 days Active Ambien 10 mg Orally Once a daymust last 30 days 1 tablet at bedtime as needed Active RESULTS No Results PROCEDURES No Known procedures INSTRUCTIONS MEDICATIONS ADMINISTERED No Known Medications MEDICAL (GENERAL) HISTORY Type Description Date Medical History fibromyalgia Medical History insomnia Medical History obesity Surgical History ganglion cyst removal 1996 Surgical History section 2003 Hospitalization History surgeries
--- OUTSIDE RECORDS SUMMARY | 2020-01-12 20:01 | XMS REPORT ---
Author Author Nani MARLEY Organization [facility] Address [address] [place] [address] Care Team Providers Care Health And Safety Trainer Name Role Phone HUBER MARLEY Unavailable PROBLEMS Type Condition ICD9-CM Code MHV68-QV Code Onset Dates Condition S tatus SNOMED Code Problem Fibromyalgia M79.7 Active 9707255 7 Problem Low back pain M54.5 Active 942380 009 Problem Other chronic pain G89.29 Active 8 7949442 Problem Obesity E66.9 Active 790545312 Problem Personal history of alcoholism F10.21 Active 757795256 Problem Chronic pain syndrome G89.4 Active 117007348 Problem Insomnia G47.00 Active [id number] ALLERGIES No Information ENCOUNTERS Encounter Location Date Diagnosis [facility] [id number] [place] [phone] 05 Dec, 2017 Fibromyalgia M79.7 ; Low gerson k pain M54.5 ; Other chronic pain G89.29 and BMI 45.0-49.9, [address] [facility] [id number] [place] [phone] 18 Nov, 2017 [facility] [address] [id number] [address] [place] [phone] Aug, Fibromyalgia M79.7 and BMI 5 0.0-59.9, adult Z68.43 [facility] [id number] [place] [phone] Aug, [facility] [id number] [place] [phone] Aug, [facility] [id number] [place] [phone] Jul, [facility] [address] [facility] [id number] [address] [place] [phone] Jul, Insomnia G47.00 [facility] [address] [facility] [id number] [address] [place] [phone] Jul, [facility] [address] [facility] [id number] [address] [place] [phone] Jul, [facility] [address] [address] Jul, [facility] [address] [id number] [address] [place] [phone] Jul, Fibromyalgia M79.7 [facility] [address] [id number] [address] [place] [phone] Jul, [facility] [address] [address] Jun, Chronic pain syndrome G89.[address] [facility] [id number] [place] [phone] Jun, Fibromyalgia M79.7 [facility] [address] [address] Jun, Bronchitis J40 ; Fibromyalgi a M79.7 ; Lumbago with sciatica, left side M54.42 ; Lumbago with sciatica, right side M54.41 ; Other chronic pain G89.29 and BMI 45.0-49.9, adult Z68.42 [facility] [address] [facility] [id number] [address] [place] [phone] Jun, Influenza-like illness R69 [facility] [id number] [place] [phone] Jun, [facility] [id number] [place] [phone] Jun, Fibromyalgia M79.7 [facility] [address] [place] [address] May, Fibromyalgia [address]7 [facility] [address] [id number] [address] [place] [phone] Apr, Insomnia G47.00 [facility] [address] [facility] [id number] [address] [place] [phone] Apr, [facility] [id number] [place] [phone] Apr, [facility] [address] [facility] [id number] [address] [place] [phone] Apr, Fibromyalgia M79.7 [facility] [id number] [place] [phone] 16 Mar, 2017 Encounter for immunization Z 23 [facility] [id number] [place] [phone] 10 Mar, 2017 Visit for TB skin test Z11.1 [facility] [address] [id number] [address] [place] [phone] Mar, Fibromyalgia M79.7 [facility] [id number] [place] [phone] Feb, Fibromyalgia M79.7 [facility] [address] [id number] [address] [place] [phone] Feb, [facility] [address] [id number] [address] [place] [phone] Feb, Fibromyalgia M79.7 [facility] [address] [id number] [address] [place] [phone] Jan, Fibromyalgia M79.7 ; Obesity E66.9 ; Insomnia G47.00 and Chronic pain syndrome G89.4 [facility] [address] [facility] [id number] [address] [place] [phone] Jan, [facility] [address] [id number] [address] [place] [phone] Jan, [facility] [address] [id number] [address] [place] [phone] Dec, [facility] [address] [id number] [address] [place] [phone] Dec, [facility] [address] [id number] [address] [place] [phone] Dec, [facility] [address] [id number] [address] [place] [phone] Nov, Chronic pain syndrome G89.4 [facility] [address] [id number] [address] [place] [phone] October, Chronic pain syndrome G89.4 [facility] [address] [id number] [address] [place] [phone] October, Chronic pain syndrome G89.4 [facility] [address] [id number] [address] [place] [phone] October, [facility] [address] [id number] [address] [place] [phone] October, Chronic pain syndrome G89.4 [facility] [address] [id number] [address] [place] [phone] October, Chronic pain syndrome G89.[address] [facility] [address] [id number] [address] [place] [phone] October, Fibromyalgia M79.7 and Chron ic pain syndrome G89.4 [facility] [address] [id number] [address] [place] [phone] Sep, Encounter for immunization Z 23 [facility] [address] [id number] [address] [place] [phone] Sep, [facility] [address] [id number] [address] [place] [phone] Sep, [facility] [address] [id number] [address] [place] [phone] Aug, Fibromyalgia M79.7 and Insom christo G47.00 [address] [address] Aug, Obesity E66.9 ; Snoring R06. 83 ; Fibromyalgia M79.7 ; Insomnia G47.00 and Screening cholesterol level Z13.220 [place] [address] [address] Aug, Fibromyalgia M79.7 [place] [address] [address] Jul, Obesity E66.9 ; Personal his tory of alcoholism F10.21 and Fibromyalgia M79.7 [place] [address] [address] Jul, [place] [address] [address] Jun, Obesity E66.9 ; Chronic pain syndrome G89.4 ; Fibromyalgia M79.7 ; Insomnia G47.00 and Wellness examination Z00.00 [place] [address] [address] Jun, Personal history of alcoholi sm F10.21 and Chronic pain syndrome G89.4 [place] [address] [address] Jun, [place] [address] [address] Jun, Fibromyalgia M79.7 [place] [address] [address] May, Fibromyalgia M79.7 [place] [id number] [place] [phone] May, [place] [address] [address] Apr, Obesity E66.9 ; Fibromyalgia M79.7 ; Insomnia G47.00 and Personal history of alcoholism F10.21 [facility] [address] [id number] [address] [place] [phone] Apr, [facility] [address] [id number] [address] [place] [phone] Apr, [facility] [address] [id number] [address] [place] [phone] Mar, [facility] [address] [id number] [address] [place] [phone] Mar, [facility] [address] [id number] [address] [place] [phone] Feb, [facility] [address] [id number] [address] [place] [phone] Jan, [facility] [address] [facility] [id number] [address] [place] [phone] Dec, Obesity E66.9 ; Fibromyalgia M79.7 ; Personal history of alcoholism F10.[address] [facility] [address] [id number] [address] [place] [phone] Dec, Chronic pain syndrome G89.4 [facility] [address] [facility] [id number] [address] [place] [phone] Dec, [facility] [address] [facility] [id number] [address] [place] [phone] Dec, [facility] [address] [id number] [address] [place] [phone] Nov, [facility] [address] [facility] [id number] [address] [place] [phone] Nov, [facility] [address] [facility] [id number] [address] [place] [phone] Nov, Fibromyalgia M79.7 ; Obesity E66.9 ; Personal history of alcoholism F10.21 ; Insomnia G47.00 and Chronic pain syndrome G89.4 [facility] [address] [facility] [id number] [address] [place] [phone] Nov, Fibromyalgia M79.7 [facility] [address] [facility] [id number] [address] [place] [phone] October, Fibromyalgia M79.7 [facility] [address] [facility] [id number] [address] [place] [phone] October, Obesity E66.9 ; Fibromyalgia M79.7 ; Personal history of alcoholism F10.[address] [facility] [address] [facility] [id number] [address] [place] [phone] Sep, [facility] [address] [facility] [id number] [address] [place] [phone] Aug, Fibromyalgia M79.7 ; Obesity E66.9 ; Personal history of alcoholism F10.[address] [facility] [address] [facility] [id number] [address] [place] [phone] Aug, [facility] [address] [facility] [id number] [address] [place] [phone] Jul, [facility] [address] [facility] [id number] [address] [place] [phone] Jun, [facility] [address] [facility] [id number] [address] [place] [phone] Jun, [facility] [address] [facility] [id number] [address] [place] [phone] May, [facility] [address] [facility] [id number] [address] [place] [address] May, Fibromyalgia M79.7 ; Obesity E66.[address] [facility] [address] [facility] [id number] [address] [place] [phone] May, [facility] [address] [facility] [id number] [address] [place] [phone] May, Fibromyalgia M79.7 ; Persona l history of alcoholism F10.21 ; Insomnia G47.00 and Obesity E66.9 [place] [address] [address] Apr, [place] [id number] [place] [phone] Apr, Fibromyalgia M79.7 ; Obesity E66.9 ; Insomnia G47.00 ; Personal history of alcoholism F10.21 and Frequent falls R29.6 [place] [address] [address] Apr, Obesity E66.9 ; Fibromyalgia M79.7 and Insomnia G47.00 [place] [address] [address] Mar, [address] [address] Mar, [place] [address] [address] Mar, [address] [address] Mar, Obesity E66.9 ; Fibromyalgia M79.7 and Personal history of alcoholism F10.21 [place] [address] [address] Feb, [place] [address] [address] Feb, Other malaise and fatigue 78 0.79 ; Abnormal weight gain 783.1 and Fibromyalgia 729.[address] [address] Jan, [place] [address] [address] Dec, [place] [address] [address] Dec, Fibromyalgia 729.1 and Abnor mal weight gain 783.1 [facility] [address] [id number] [address] [place] [phone] Dec, Unspecified myalgia and myos itis 729.1 ; Abnormal weight gain 783.[address] [facility] [address] [id number] [address] [place] [phone] Nov, [facility] [address] [id number] [address] [place] [phone] Nov, Other malaise and fatigue 78 0.79 ; Unspecified myalgia and myositis 729.1 and Abnormal weight gain 783.1 [facility] [address] [id number] [address] [place] [phone] Nov, [facility] [address] [id number] [address] [place] [phone] Nov, [facility] [address] [id number] [address] [place] [phone] October, [facility] [address] [id number] [address] [place] [phone] October, Unspecified myalgia and myos itis 729.[address] [facility] [address] [id number] [address] [place] [phone] October, [facility] [address] [id number] [address] [place] [phone] Sep, [facility] [address] [id number] [address] [place] [phone] Sep, [facility] [address] [facility] [id number] [address] [place] [phone] Aug, [facility] [address] [id number] [address] [place] [phone] Aug, [facility] [place] [facility] [address] [id number] [address] [place] [address], [place] [address] 17 Aug, 2014 [facility] [address] [id number] [address] [place] [address], [place] [address] 17 Aug, 2014 [facility] [address] [id number] [address] [place] [address], [place] [address] 12 Aug, 2014 [facility] [address] [id number] [address] [place] [address], [place] [address] 12 Aug, 2014 [facility] [address] [id number] [address] [place] [address], [place] [address] 11 Aug, 2014 [facility] [address] [id number] [address] [place] [address], [place] [address] 11 Aug, 2014 [facility] [address] [id number] [address] [place] [address], [place] [address] 10 Aug, 2014 [facility] [address] [id number] [address] [place] [address], [place] [address] 10 Aug, 2014 [facility] [address] [id number] [address] [place] [address], [place] [address] 04 May, 2014 [facility] [address] [id number] [address] [place] [address], [place] [address] 04 May, 2014 [facility] [address] [id number] [address] [place] [address], [place] [address] 07 Mar, 2014 [facility] [address] [id number] [address] [place] [address], [place] [address] 07 Mar, 2014 [facility] [address] [id number] [address] [place] [address], [place] [address] 17 Feb, 2014 [facility] [address] [id number] [address] [place] [address], [place] [address] 17 Feb, 2014 [facility] [address] [id number] [address] [place] [address], [place] [address] 11 Feb, 2014 [facility] [address] [id number] [address] [place] [address], [place] [address] Feb, [facility] [address] [id number] [address] [place] [phone] October, [facility] [address] [id number] [address] [place] [phone] October, [facility] [address] [id number] [address] [place] [phone] October, [facility] [address] [id number] [address] [place] [phone] October, [facility] [address] [id number] [address] [place] [phone] Sep, [facility] [address] [id number] [address] [place] [address] Sep, [facility] [address] [id number] [address] [place] [phone] Sep, [facility] [address] [id number] [address] [place] [phone] Sep, [facility] [address] [id number] [address] [place] [address] Jul, [facility] [address] [id number] [address] [place] [address] Jul, [facility] [address] [id number] [address] [place] [phone] Jun, [facility] [address] [id number] [address] [place] [phone] Jun, [facility] [address] [id number] [address] [place] [id number] May, [facility] [address] [id number] [address] [place] [phone] May, IMMUNIZATIONS No Known Immunizations SOCIAL HISTORY Never Assessed REASON FOR VISIT Medication refill request PLAN OF CARE VITAL SIGNS MEDICATIONS No Known Medications RESULTS No Results PROCEDURES No Known procedures INSTRUCTIONS MEDICATIONS ADMINISTERED No Known Medications MEDICAL (GENERAL) HISTORY Type Description Date Medical History fibromyalgia Medical History insomnia Medical History obesity Surgical History ganglion cyst removal 1996 Surgical History section 2004 Hospitalization History surgeries
--- OUTSIDE RECORDS SUMMARY | 2020-01-12 20:01 | XMS REPORT ---
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 Name Role Phone HUBER MARLEY Unavailable PROBLEMS Type Condition ICD9-CM Code [id number] Code Onset Dates Condition S tatus SNOMED Code Problem Fibromyalgia M79.7 Active 1206134 7 Problem Low back pain M54.5 Active 533304 009 Problem Other chronic pain G89.29 Active 8 6854755 Problem Obesity E66.9 Active 615749072 Problem Personal history of alcoholism F10.21 Active 313597169 Problem Chronic pain syndrome G89.4 Active 797447038 Problem Insomnia G47.00 Active 967154507 ALLERGIES Substance Reaction Event Type Date Status Tramadol HCl rash Drug Allergy Mar, Active Penicillin V Potassium Unknown Drug Allergy Mar, Activ e Bactrim Unknown Drug Allergy Mar, Active Clindamycin Unknown Drug Allergy Mar, Active ENCOUNTERS Encounter Location Date Diagnosis [facility] [address] [id number] [address] [place] [id number] Mar, Fibromyalgia M79.7 ; Muscle spasm M62.838 and BMI 40.0-44.9, adult Z68.41 [facility] [address] [facility] [id number] [address] [place] [id number] Mar, [facility] [address] [id number] [address] [place] [id number] 05 Dec, 2017 Fibromyalgia M79.7 ; Low [place] k pain M54.5 ; Other chronic pain G89.29 and BMI 45.0-49.9, adult Z68.42 [facility] [place] [address] [facility] [id number] [address] [place] [id number] Nov, [facility] [address] [facility] [id number] [address] [place] [id number] Aug, Fibromyalgia M79.7 and BMI 5 0.0-59.9, adult Z68.43 [facility] [place] [address] [facility] [id number] [address] [place] [phone] Aug, [facility] [place] [address] [id number] [address] [place] [phone] Aug, [facility] [place] [address] [facility] [id number] [address] [place] [id number] Jul, [facility] [place] [id number] [place] [phone] Jul, Insomnia G47.00 [facility] [place] [address] [facility] [id number] [address] [place] [phone] Jul, [facility] [place] [address] [id number] [address] [place] [phone] Jul, [facility] [place] [address] [id number] [address] [place] [phone] Jul, [facility] [place] [address] [id number] [address] [place] [id number] Jul, Fibromyalgia M79.7 [facility] [place] [address] [id number] [address] [place] [id number] Jul, [facility] [place] [address] [id number] [address] [place] [id number] Jun, Chronic pain syndrome G89.4 and Fibromyalgia M79.7 [facility] [place] [address] [id number] [address] [place] [id number] Jun, Fibromyalgia M79.7 [facility] [place] [address] [id number] [address] [place] [id number] Jun, Bronchitis J40 ; Fibromyalgi a M79.7 ; Lumbago with sciatica, left side M54.42 ; Lumbago with sciatica, right side M54.41 ; Other chronic pain G89.29 and BMI 45.0-49.9, adult Z68.42 [facility] [address] [facility] [id number] [address] [place] [id number] Jun, Influenza-like illness R69 [facility] [place] [address] [facility] [id number] [address] [place] [id number] Jun, [facility] [place] [address] [facility] [id number] [address] [place] [phone] Jun, Fibromyalgia M79.7 [facility] [place] [address] [facility] [id number] [address] [place] [id number] May, Fibromyalgia M79.7 [facility] [place] [address] [facility] [id number] [address] [place] [id number] Apr, Insomnia G47.00 [facility] [place] [address] [facility] [id number] [address] [place] [id number] Apr, [facility] [place] [address] [facility] [id number] [address] [place] [phone] Apr, [facility] [place] [address] [facility] [id number] [address] [place] [id number] Apr, Fibromyalgia M79.7 [facility] [place] [address] [id number] [address] [place] [id number] 16 Mar, 2017 Encounter for immunization Z 23 [facility] [place] [address] [facility] [id number] [address] [place] [phone] 10 Mar, 2017 Visit for TB skin test Z11.1 [facility] [place] [address] [facility] [id number] [address] [place] [id number] 04 Mar, 2017 Fibromyalgia M79.7 [facility] [place] [address] [facility] [id number] [address] [place] [id number] 12 Feb, 2017 Fibromyalgia M79.7 [facility] [place] [address] [facility] [id number] [address] [place] [phone] Feb, [facility] [address] [id number] [address] [place] [id number] Feb, Fibromyalgia M79.7 [facility] [address] [id number] [address] [place] [id number] Jan, Fibromyalgia M79.7 ; Obesity E66.9 ; Insomnia G47.00 and Chronic pain syndrome G89.4 [facility] [address] [id number] [address] [place] [id number] Jan, [facility] [address] [id number] [address] [place] [phone] Jan, [facility] [place] [address] [id number] [address] [place] [phone] Dec, [facility] [place] [address] [id number] [address] [place] [id number] Dec, [facility] [place] [address] [id number] [address] [place] [id number] Dec, [facility] [place] [address] [id number] [address] [place] [phone] Nov, Chronic pain syndrome G89.4 [facility] [place] [address] [id number] [address] [place] [id number] October, Chronic pain syndrome G89.4 [facility] [place] [address] [id number] [address] [place] [phone] October, Chronic pain syndrome G89.4 [facility] [place] [address] [id number] [address] [place] [id number] October, [facility] [place] [address] [id number] [address] [place] [id number] October, Chronic pain syndrome G89.4 [facility] [address] [id number] [address] [place] [id number] October, Chronic pain syndrome G89.4 and Fibromyalgia M79.7 [facility] [place] [address] [id number] [address] [place] [phone] October, Fibromyalgia M79.7 and Chron ic pain syndrome G89.4 [place] [address] [id number] Sep, Encounter for immunization Z 23 [place] [address] [id number] 13 Sep, 2016 [place] [address] [address] Sep, [place] [address] [address] Aug, Fibromyalgia M79.7 and Insom christo G47.00 [place] [address] [address] Aug, Obesity E66.9 ; Snoring R06. 83 ; Fibromyalgia M79.7 ; Insomnia G47.00 and Screening cholesterol level Z13.220 [place] [address] [address] Aug, Fibromyalgia M79.7 [place] [address] [address] Jul, Obesity E66.9 ; Personal his tory of alcoholism F10.21 and Fibromyalgia M79.7 [place] [address] [address] Jul, [place] [address] [address] Jun, Obesity E66.9 ; Chronic pain syndrome G89.4 ; Fibromyalgia M79.7 ; Insomnia G47.00 and Wellness examination Z00.00 [place] [address] [address] Jun, Personal history of alcoholi sm F10.21 and Chronic pain syndrome G89.4 [place] [address] [id number] Jun, [facility] [place] [address] [facility] [id number] [address] [place] [id number] Jun, Fibromyalgia M79.7 [facility] [place] [address] [id number] [address] [place] [id number] May, Fibromyalgia M79.7 [facility] [place] [address] [facility] [id number] [address] [place] [phone] May, [facility] [place] [address] [id number] [address] [place] [id number] Apr, Obesity E66.9 ; Fibromyalgia M79.7 ; Insomnia G47.00 and Personal history of alcoholism F10.21 [facility] [place] [address] [id number] [address] [place] [id number] Apr, [facility] [place] [address] [facility] [id number] [address] [place] [phone] Apr, [facility] [place] [address] [facility] [id number] [address] [place] [phone] Mar, [facility] [place] [address] [id number] [address] [place] [phone] Mar, [facility] [place] [address] [facility] [id number] [address] [place] [phone] Feb, [facility] [place] [address] [facility] [id number] [address] [place] [id number] Jan, [facility] [place] [address] [facility] [id number] [address] [place] [id number] Dec, Obesity E66.9 ; Fibromyalgia M79.7 ; Personal history of alcoholism F10.21 and Insomnia G47.00 [facility] [place] [address] [id number] [address] [place] [phone] Dec, Chronic pain syndrome G89.4 [facility] [place] [address] [facility] [id number] [address] [place] [id number] Dec, [facility] [place] [address] [facility] [id number] [address] [place] [id number] Dec, [facility] [address] [facility] [id number] [address] [place] [phone] Nov, [facility] [place] [address] [facility] [id number] [address] [place] [phone] Nov, [facility] [place] [address] [facility] [id number] [address] [place] [phone] Nov, Fibromyalgia M79.7 ; Obesity E66.9 ; Personal history of alcoholism F10.21 ; Insomnia G47.00 and Chronic pain syndrome G89.4 [facility] [place] [address] [facility] [id number] [address] [place] [id number] Nov, Fibromyalgia M79.7 [facility] [place] [address] [facility] [id number] [address] [place] [id number] October, Fibromyalgia M79.7 [facility] [place] [address] [facility] [id number] [address] [place] [id number] October, Obesity E66.9 ; Fibromyalgia M79.7 ; Personal history of alcoholism F10.21 and Insomnia G47.00 [facility] [place] [address] [facility] [id number] [address] [place] [id number] Sep, [facility] [place] [address] [facility] [id number] [address] [place] [id number] Aug, Fibromyalgia M79.7 ; Obesity E66.9 ; Personal history of alcoholism F10.21 and Insomnia G47.00 [facility] [place] [address] [facility] [id number] [address] [place] [id number] Aug, [facility] [place] [address] [facility] [id number] [address] [place] [phone] Jul, [facility] [place] [address] [facility] [id number] [address] [place] [phone] Jun, [facility] [place] [address] [facility] [id number] [address] [place] [id number] Jun, [facility] [place] [address] [id number] May, [facility] [place] [address] [address] May, Fibromyalgia M79.7 ; Obesity E66.9 and Insomnia G47.00 [facility] [place] [address] [address] May, [facility] [place] [address] [address] May, Fibromyalgia M79.7 ; Persona l history of alcoholism F10.21 ; Insomnia G47.00 and Obesity E66.9 [place] [address] [address] Apr, [facility] [place] [address] [address] Apr, Fibromyalgia M79.7 ; Obesity E66.9 ; Insomnia G47.00 ; Personal history of alcoholism F10.21 and Frequent falls R29.6 [place] [address] [address] Apr, Obesity E66.9 ; Fibromyalgia M79.7 and Insomnia G47.00 [facility] [place] [address] [address] Mar, [facility] [place] [address] [address] Mar, [facility] [place] [address] [address] Mar, [facility] [place] [address] [address] Mar, Obesity E66.9 ; Fibromyalgia M79.7 and Personal history of alcoholism F10.21 [facility] [place] [address] [address] Feb, [facility] [place] [address] [id number] [address] [place] [id number] Feb, Other malaise and fatigue 78 0.79 ; Abnormal weight gain 783.1 and Fibromyalgia 729.1 [facility] [place] [address] [id number] [address] [place] [id number] Jan, [facility] [place] [address] [facility] [id number] [address] [place] [phone] Dec, [facility] [place] [address] [id number] [address] [place] [id number] Dec, Fibromyalgia 729.1 and Abnor mal weight gain 783.1 [place] [address] [facility] [id number] [address] [place] [phone] Dec, Unspecified myalgia and myos itis 729.1 ; Abnormal weight gain 783.1 and Fibromyalgia 729.1 [place] [address] [facility] [id number] [address] [place] [phone] Nov, [place] [address] [id number] [address] [place] [id number] Nov, Other malaise and fatigue 78 0.79 ; Unspecified myalgia and myositis 729.1 and Abnormal weight gain 783.1 [place] [address] [facility] [id number] [address] [place] [id number] Nov, [place] [address] [facility] [id number] [address] [place] [phone] Nov, [place] [address] [facility] [id number] [address] [place] [id number] October, [place] [address] [facility] [id number] [address] [place] [id number] October, Unspecified myalgia and myos itis 729.1 and Scabies 133.0 [place] [address] [facility] [id number] [address] [place] [phone] October, [facility] [address] [id number] [address] [place] [address], [place] [address] 14 Sep, 2014 [facility] [address] [id number] [address] [place] [address], [place] [address] 13 Sep, 2014 [facility] [address] [id number] [address] [place] [address], [place] [address] 17 Aug, 2014 [facility] [address] [id number] [address] [place] [address], [place] [id number] 17 Aug, 2014 [facility] [address] [id number] [address] [place] [address], [place] [address] 17 Aug, 2014 [facility] [address] [id number] [address] [place] [address], [place] [id number] 17 Aug, 2014 [facility] [address] [id number] [address] [place] [address], [place] [address] Aug, [facility] [address] [id number] [address] [place] [address], [place] [address] 12 Aug, 2014 [facility] [address] [id number] [address] [place] [address], [place] [address] Aug, [facility] [address] [id number] [address] [place] [address], [place] [address] Aug, [facility] [address] [id number] [address] [place] [address], [place] [address] 10 Aug, 2014 [facility] [address] [id number] [address] [place] [address], [place] [address] 10 Aug, 2014 [facility] [address] [id number] [address] [place] [address], [place] [address] May, [facility] [address] [id number] [address] [place] [address], [place] [address] May, [facility] [address] [id number] [address] [place] [address], [place] [id number] 07 Mar, 2014 [facility] [address] [id number] [address] [place] [id number] Mar, [facility] [address] [id number] [address] [place] [address], [place] [address] Feb, [facility] [address] [id number] [address] [place] [address], [place] [address] Feb, [facility] [address] [id number] [address] [place] [address], [place] [address] Feb, [facility] [address] [id number] [address] [place] [address], [place] [address] Feb, [facility] [address] [id number] [address] [place] [address], [place] [address] October, [facility] [address] [id number] [address] [place] [address], [place] [id number] October, [facility] [address] [id number] [address] [place] [address], [place] [address] October, [facility] [address] [id number] [address] [place] [address], [place] [address] October, [facility] [address] [id number] [address] [place] [address], [place] [address] Sep, [facility] [address] [id number] [address] [place] [address], [place] [address] Sep, [facility] [address] [id number] [address] [place] [address], [place] [address] Sep, [facility] [address] [id number] [address] [place] [address], [place] [address] Sep, [facility] [address] [id number] [address] [place] [address], [place] [address] Jul, [facility] [address] [id number] [address] [place] [address], [place] [address] Jul, [facility] [address] [id number] [address] [place] [address], [place] [address] Jun, [facility] [place] [address] [facility] [id number] [address] [place] [address] Jun, [facility] [place] [address] [facility] [id number] [address] [place] [id number] May, [facility] [place] [address] [facility] [id number] [address] [place] [address] May, IMMUNIZATIONS No Known Immunizations SOCIAL HISTORY Never Assessed REASON FOR VISIT allergies- not what she made appt for Alcira VIEIRA , fibromyalgia is severe rig ht now- pain from shoulder blades down to finger tips- numb for 2 weeks Alcira VIEIRA, skin feels hot like sunburn from head to toe Alcira VIEIRA , cant get warm KPa hansa VIEIRA PLAN OF CARE Activity Details Follow Up Reg appt Reason: VITAL SIGNS Height 64 in 2018-03-26 Weight 259.8 lbs 2018-03-26 Temperature 97.4 degrees Fahrenheit 2018-03-26 Heart Rate 106 bpm 2018-03-26 Respiratory Rate 20 2018-03-26 BMI 44.59 kg/m2 2018-03-26 Blood pressure systolic 128 mmHg 2018-03-26 Blood pressure diastolic 82 mmHg 2018-03-26 MEDICATIONS Medication Instructions Dosage Frequency Start Date End Date Duration S tatus Ambien 10 mg Orally Once a daymust last 30 days 1 tablet at bedtime as needed Active Lyrica 75 MG Orally twice a day 1 capsule 12h 30 day s Active PredniSONE 20 mg Orally Once a day 2 tablets 24h 12 Mar, 2018 1 7 Mar, 2018 5 days Active Duloxetine HCl 60 MG TAKE ONE CAPSULE BY MOUTH ONCE DAILY 30 Active RESULTS No Results PROCEDURES No Known procedures INSTRUCTIONS MEDICATIONS ADMINISTERED No Known Medications MEDICAL (GENERAL) HISTORY Type Description Date Medical History fibromyalgia Medical History insomnia Medical History obesity Surgical History ganglion cyst removal 1996 Surgical History section 2004 Hospitalization History surgeries
--- OUTSIDE RECORDS SUMMARY | 2020-01-12 20:02 | XMS REPORT ---
Author Author Nani MARLEY Organization [facility] Address [address] [place] [address] Care Team Providers Care Group Social Worker Name Role Phone HUBER MARLEY Unavailable PROBLEMS Type Condition ICD9-CM Code [id number] Code Onset Dates Condition S tatus SNOMED Code Problem Fibromyalgia M79.7 Active 4323060 7 Problem Low back pain M54.5 Active 036042 009 Problem Other chronic pain G89.29 Active 8 3033338 Problem Obesity E66.9 Active 471737988 Problem Personal history of alcoholism F10.21 Active 175354011 Problem Chronic pain syndrome G89.4 Active 855135955 Problem Insomnia G47.00 Active [id number] ALLERGIES No Information ENCOUNTERS Encounter Location Date Diagnosis [facility] [id number] [place] [id number] 05 Dec, 2017 Fibromyalgia M79.7 ; Low gerson k pain M54.5 ; Other chronic pain G89.29 and BMI 45.0-49.9, adult Z68.42 [facility] [id number] [place] [phone] 18 Nov, 2017 [facility] [address] [id number] [address] [place] [phone] Aug, Fibromyalgia M79.7 and BMI 5 0.0-59.9, adult Z68.43 [facility] [id number] [place] [id number] Aug, [facility] [id number] [place] [id number] Aug, [facility] [id number] [place] [phone] Jul, [facility] [address] [facility] [id number] [address] [place] [id number] Jul, Insomnia G47.00 [facility] [address] [facility] [id number] [address] [place] [phone] Jul, [facility] [address] [facility] [id number] [address] [place] [phone] Jul, [facility] [address] [id number] Jul, [facility] [id number] [address] [place] [id number] Jul, Fibromyalgia M79.7 [facility] [id number] [place] [id number] Jul, [facility] [address] [id number] Jun, Chronic pain syndrome G89.4 and Fibromyalgia M79.7 [facility] [id number] [place] [phone] Jun, Fibromyalgia M79.7 [facility] [address] [address] Jun, Bronchitis J40 ; Fibromyalgi a M79.7 ; Lumbago with sciatica, left side M54.42 ; Lumbago with sciatica, right side M54.41 ; Other chronic pain G89.29 and BMI 45.0-49.9, adult Z68.42 [facility] [address] [facility] [id number] [address] [place] [id number] Jun, Influenza-like illness R69 [facility] [id number] [place] [phone] Jun, [facility] [id number] [place] [id number] Jun, Fibromyalgia M79.7 [facility] [address] [place] [address] May, Fibromyalgia M79.7 [facility] [id number] [place] [phone] Apr, Insomnia G47.00 [facility] [address] [facility] [id number] [address] [place] [id number] Apr, [facility] [id number] [place] [phone] Apr, [facility] [address] [facility] [id number] [address] [place] [id number] Apr, Fibromyalgia M79.7 [facility] [id number] [place] [phone] 16 Mar, 2017 Encounter for immunization Z 23 [facility] [id number] [place] [phone] 10 Mar, 2017 Visit for TB skin test Z11.1 [facility] [id number] [place] [phone] Mar, Fibromyalgia M79.7 [facility] [id number] [place] [phone] Feb, Fibromyalgia M79.7 [facility] [id number] [place] [phone] Feb, [facility] [id number] [place] [id number] Feb, Fibromyalgia M79.7 [facility] [id number] [place] [id number] Jan, Fibromyalgia M79.7 ; Obesity E66.9 ; Insomnia G47.00 and Chronic pain syndrome G89.4 [facility] [address] [facility] [id number] [address] [place] [id number] Jan, [facility] [id number] [place] [id number] Jan, [facility] [address] [id number] [address] [place] [phone] Dec, [facility] [address] [id number] [address] [place] [phone] Dec, [facility] [address] [id number] [address] [place] [phone] Dec, [facility] [address] [id number] [address] [place] [phone] Nov, Chronic pain syndrome G89.4 [facility] [address] [id number] [address] [place] [phone] October, Chronic pain syndrome G89.4 [facility] [address] [id number] [address] [place] [id number] October, Chronic pain syndrome G89.4 [facility] [address] [id number] [address] [place] [phone] October, [facility] [address] [id number] [address] [place] [id number] October, Chronic pain syndrome G89.4 [facility] [address] [id number] [address] [place] [phone] October, Chronic pain syndrome G89.4 and Fibromyalgia M79.7 [facility] [address] [id number] [address] [place] [phone] October, Fibromyalgia M79.7 and Chron ic pain syndrome G89.4 [facility] [address] [id number] [address] [place] [phone] Sep, Encounter for immunization Z 23 [facility] [address] [id number] [address] [place] [id number] Sep, [facility] [address] [id number] [address] [place] [id number] Sep, [facility] [address] [id number] [address] [place] [address] Aug, Fibromyalgia M79.7 and Insom christo G47.00 [address] [address] Aug, Obesity E66.9 ; Snoring R06. 83 ; Fibromyalgia M79.7 ; Insomnia G47.00 and Screening cholesterol level Z13.220 [place] [address] [id number] Aug, Fibromyalgia M79.7 [place] [address] [id number] Jul, Obesity E66.9 ; Personal his tory of alcoholism F10.21 and Fibromyalgia M79.7 [address] [address] [address] Jul, [address] [id number] Jun, Obesity E66.9 ; Chronic pain syndrome G89.4 ; Fibromyalgia M79.7 ; Insomnia G47.00 and Wellness examination Z00.00 [address] [address] [id number] Jun, Personal history of alcoholi sm F10.21 and Chronic pain syndrome G89.4 [place] [address] [address] Jun, [address] [address] [phone] Jun, Fibromyalgia M79.7 [address] [address] [address] May, Fibromyalgia M79.7 [place] [id number] [place] [address] May, [place] [address] [address] Apr, Obesity E66.9 ; Fibromyalgia M79.7 ; Insomnia G47.00 and Personal history of alcoholism F10.21 [facility] [address] [id number] [address] [place] [phone] Apr, [facility] [address] [id number] [address] [place] [phone] Apr, [facility] [address] [id number] [address] [place] [phone] Mar, [facility] [address] [id number] [address] [place] [id number] Mar, [facility] [address] [id number] [address] [place] [phone] Feb, [facility] [address] [id number] [address] [place] [phone] Jan, [facility] [address] [facility] [id number] [address] [place] [phone] Dec, Obesity E66.9 ; Fibromyalgia M79.7 ; Personal history of alcoholism F10.21 and Insomnia G47.00 [facility] [address] [id number] [address] [place] [id number] Dec, Chronic pain syndrome G89.4 [facility] [address] [facility] [id number] [address] [place] [phone] Dec, [facility] [address] [facility] [id number] [address] [place] [phone] Dec, [facility] [address] [id number] [address] [place] [id number] Nov, [facility] [address] [facility] [id number] [address] [place] [phone] Nov, [facility] [address] [facility] [id number] [address] [place] [phone] Nov, Fibromyalgia M79.7 ; Obesity E66.9 ; Personal history of alcoholism F10.21 ; Insomnia G47.00 and Chronic pain syndrome G89.4 [facility] [address] [facility] [id number] [address] [place] [id number] Nov, Fibromyalgia M79.7 [facility] [address] [facility] [id number] [address] [place] [id number] October, Fibromyalgia M79.7 [facility] [address] [facility] [id number] [address] [place] [phone] October, Obesity E66.9 ; Fibromyalgia M79.7 ; Personal history of alcoholism F10.21 and Insomnia G47.00 [facility] [address] [facility] [id number] [address] [place] [id number] Sep, [facility] [address] [facility] [id number] [address] [place] [id number] Aug, Fibromyalgia M79.7 ; Obesity E66.9 ; Personal history of alcoholism F10.21 and Insomnia G47.00 [facility] [address] [facility] [id number] [address] [place] [id number] Aug, [facility] [address] [facility] [id number] [address] [place] [phone] Jul, [facility] [address] [facility] [id number] [address] [place] [id number] Jun, [facility] [address] [facility] [id number] [address] [place] [id number] Jun, [facility] [address] [facility] [id number] [address] [place] [id number] May, [facility] [address] [facility] [id number] [address] [place] [id number] May, Fibromyalgia M79.7 ; Obesity E66.9 and Insomnia G47.00 [facility] [address] [facility] [id number] [address] [place] [id number] May, [facility] [address] [facility] [id number] [address] [place] [phone] May, Fibromyalgia M79.7 ; Persona l history of alcoholism F10.21 ; Insomnia G47.00 and Obesity E66.9 [address] [place] [address] [address] Apr, [place] [id number] [place] [address] Apr, Fibromyalgia M79.7 ; Obesity E66.9 ; Insomnia G47.00 ; Personal history of alcoholism F10.21 and Frequent falls R29.6 [address] [id number] Apr, Obesity E66.9 ; Fibromyalgia M79.7 and Insomnia G47.00 [place] [address] [address] Mar, [address] [phone] Mar, [place] [address] [address] Mar, [address] [address] Mar, Obesity E66.9 ; Fibromyalgia M79.7 and Personal history of alcoholism F10.21 [address] [place] [address] [id number] Feb, [place] [address] [address] Feb, Other malaise and fatigue 78 0.79 ; Abnormal weight gain 783.1 and Fibromyalgia 729.[address] [address] Jan, [place] [address] [id number] Dec, [address] [place] [address] [id number] Dec, Fibromyalgia 729.1 and Abnor mal weight gain 783.1 [facility] [address] [id number] [address] [place] [id number] Dec, Unspecified myalgia and myos itis 729.1 ; Abnormal weight gain 783.1 and Fibromyalgia 729.1 [facility] [address] [id number] [address] [place] [phone] Nov, [facility] [address] [id number] [address] [place] [phone] Nov, Other malaise and fatigue 78 0.79 ; Unspecified myalgia and myositis 729.1 and Abnormal weight gain 783.1 [facility] [address] [id number] [address] [place] [phone] Nov, [facility] [address] [id number] [address] [place] [phone] Nov, [facility] [address] [id number] [address] [place] [phone] October, [facility] [address] [id number] [address] [place] [phone] October, Unspecified myalgia and myos itis 729.1 and Scabies 133.0 [facility] [address] [id number] [address] [place] [phone] October, [facility] [address] [id number] [address] [place] [phone] Sep, [facility] [address] [id number] [address] [place] [phone] Sep, [facility] [address] [facility] [id number] [address] [place] [phone] Aug, [facility] [address] [id number] [address] [place] [phone] Aug, [facility] [place] [facility] [address] [id number] [address] [place] [address], [place] [id number] 17 Aug, 2014 [facility] [address] [id number] [address] [place] [address], [place] [id number] 17 Aug, 2014 [facility] [address] [id number] [address] [place] [address], [place] [id number] 12 Aug, 2014 [facility] [address] [id number] [address] [place] [address], [place] [id number] 12 Aug, 2014 [facility] [address] [id number] [address] [place] [address], [place] [id number] 11 Aug, 2014 [facility] [address] [id number] [address] [place] [address], [place] [id number] 11 Aug, 2014 [facility] [address] [id number] [address] [place] [address], [place] [id number] 10 Aug, 2014 [facility] [address] [id number] [address] [place] [address], [place] [id number] 10 Aug, 2014 [facility] [address] [id number] [address] [place] [address], [place] [id number] 04 May, 2014 [facility] [address] [id number] [address] [place] [address], [place] [id number] 04 May, 2014 [facility] [address] [id number] [address] [place] [address], [place] [id number] 07 Mar, 2014 [facility] [address] [id number] [address] [place] [address], [place] [id number] 07 Mar, 2014 [facility] [address] [id number] [address] [place] [address], [place] [id number] 17 Feb, 2014 [facility] [address] [id number] [address] [place] [address], [place] [id number] 17 Feb, 2014 [facility] [address] [id number] [address] [place] [address], [place] [id number] 11 Feb, 2014 [facility] [address] [id number] [address] [place] [address], [place] [id number] Feb, [facility] [address] [id number] [address] [place] [phone] October, [facility] [address] [id number] [address] [place] [id number] October, [facility] [address] [id number] [address] [place] [phone] October, [facility] [address] [id number] [address] [place] [phone] October, [facility] [address] [id number] [address] [place] [phone] Sep, [facility] [address] [id number] [address] [place] [phone] Sep, [facility] [address] [id number] [address] [place] [phone] Sep, [facility] [address] [id number] [address] [place] [phone] Sep, [facility] [address] [id number] [address] [place] [id number] Jul, [facility] [address] [id number] [address] [place] [id number] Jul, [facility] [address] [id number] [address] [place] [phone] Jun, [facility] [address] [id number] [address] [place] [phone] Jun, [facility] [address] [id number] [address] [place] [phone] May, [facility] [address] [id number] [address] [place] [phone] May, IMMUNIZATIONS No Known Immunizations SOCIAL HISTORY Never Assessed REASON FOR VISIT PLAN OF CARE VITAL SIGNS MEDICATIONS No Known Medications RESULTS No Results PROCEDURES No Known procedures INSTRUCTIONS MEDICATIONS ADMINISTERED No Known Medications MEDICAL (GENERAL) HISTORY Type Description Date Medical History fibromyalgia Medical History insomnia Medical History obesity Surgical History ganglion cyst removal 1997 Surgical History section 2004 Hospitalization History surgeries
--- OUTSIDE RECORDS SUMMARY | 2020-01-12 20:02 | XMS REPORT ---
Author Author Nani MARLEY Organization [facility] Address [address] [place] [address] Care Team Providers Care Business Support Specialist Name Role Phone HUBER MARLEY Unavailable PROBLEMS Type Condition ICD9-CM Code [id number] Code Onset Dates Condition S tatus SNOMED Code Problem Fibromyalgia M79.7 Active 6041699 7 Problem Low back pain M54.5 Active 389270 009 Problem Other chronic pain G89.29 Active 8 9395005 Problem Obesity E66.9 Active 982492664 Problem Personal history of alcoholism F10.21 Active 925202810 Problem Chronic pain syndrome G89.4 Active 216123016 Problem Insomnia G47.00 Active [id number] ALLERGIES No Information ENCOUNTERS Encounter Location Date Diagnosis [facility] [id number] [address] [place] [id number] 05 Dec, 2017 Fibromyalgia M79.7 ; Low gerson k pain M54.5 ; Other chronic pain G89.29 and BMI 45.0-49.9, adult Z68.42 [facility] [id number] [address] [place] [address] 18 Nov, 2017 [facility] [address] [id number] [address] [place] [address] Aug, Fibromyalgia M79.7 and BMI 5 0.0-59.9, adult Z68.43 [facility] [id number] [place] [address] Aug, [facility] [id number] [place] [address] Aug, [facility] [id number] [place] [address] Jul, [facility] [address] [facility] [id number] [address] [place] [address] Jul, Insomnia G47.00 [facility] [address] [facility] [id number] [address] [place] [address] Jul, [facility] [address] [facility] [id number] [address] [place] [address] Jul, [facility] [address] [address] Jul, [facility] [address] [id number] [address] [place] [address] Jul, Fibromyalgia M79.7 [facility] [address] [id number] [address] [place] [address] Jul, [facility] [address] [address] Jun, Chronic pain syndrome G89.4 and Fibromyalgia M79.7 [facility] [id number] [place] [address] Jun, Fibromyalgia M79.7 [facility] [address] [address] Jun, Bronchitis J40 ; Fibromyalgi a M79.7 ; Lumbago with sciatica, left side M54.42 ; Lumbago with sciatica, right side M54.41 ; Other chronic pain G89.29 and BMI 45.0-49.9, adult Z68.42 [facility] [address] [facility] [id number] [address] [place] [address] Jun, Influenza-like illness R69 [facility] [id number] [place] [address] Jun, [facility] [address] [id number] [address] [place] [address] Jun, Fibromyalgia M79.7 [facility] [address] [place] [address] May, Fibromyalgia M79.7 [facility] [address] [id number] [address] [place] [address] Apr, Insomnia G47.00 [facility] [address] [facility] [id number] [address] [place] [address] Apr, [facility] [id number] [place] [address] Apr, [facility] [address] [facility] [id number] [address] [place] [address] Apr, Fibromyalgia M79.7 [facility] [id number] [place] [id number] 16 Mar, 2017 Encounter for immunization Z 23 [facility] [id number] [place] [address] 10 Mar, 2017 Visit for TB skin test Z11.1 [facility] [address] [id number] [address] [place] [address] Mar, Fibromyalgia M79.7 [facility] [id number] [place] [address] Feb, Fibromyalgia M79.7 [facility] [address] [id number] [address] [place] [address] Feb, [facility] [address] [id number] [address] [place] [address] Feb, Fibromyalgia M79.7 [facility] [address] [id number] [address] [place] [address] Jan, Fibromyalgia M79.7 ; Obesity E66.9 ; Insomnia G47.00 and Chronic pain syndrome G89.4 [facility] [address] [facility] [id number] [address] [place] [address] Jan, [facility] [address] [id number] [address] [place] [address] Jan, [facility] [address] [id number] [address] [place] [address] Dec, [facility] [address] [id number] [address] [place] [address] Dec, [facility] [address] [id number] [address] [place] [address] Dec, [facility] [address] [id number] [address] [place] [address] Nov, Chronic pain syndrome G89.4 [facility] [address] [id number] [address] [place] [address] October, Chronic pain syndrome G89.4 [facility] [address] [id number] [address] [place] [address] October, Chronic pain syndrome G89.4 [facility] [address] [id number] [address] [place] [address] October, [facility] [address] [id number] [address] [place] [address] October, Chronic pain syndrome G89.4 [facility] [address] [id number] [address] [place] [address] October, Chronic pain syndrome G89.4 and Fibromyalgia M79.7 [facility] [address] [id number] [address] [place] [address] October, Fibromyalgia M79.7 and Chron ic pain syndrome G89.4 [facility] [address] [id number] [address] [place] [address] Sep, Encounter for immunization Z 23 [facility] [address] [id number] [address] [place] [address] Sep, [facility] [address] [id number] [address] [place] [address] Sep, [facility] [address] [id number] [address] [place] [address] Aug, Fibromyalgia M79.7 and Insom christo G47.00 [address] [address] [address] [address] Aug, Obesity E66.9 ; Snoring R06. 83 ; Fibromyalgia M79.7 ; Insomnia G47.00 and Screening cholesterol level Z13.220 [place] [address] [address] Aug, Fibromyalgia M79.7 [address] [address] [address] Jul, Obesity E66.9 ; Personal his tory of alcoholism F10.21 and Fibromyalgia M79.7 [address] [address] [address] Jul, [place] [address] [address] Jun, Obesity E66.9 ; Chronic pain syndrome G89.4 ; Fibromyalgia M79.7 ; Insomnia G47.00 and Wellness examination Z00.00 [address] [address] [address] Jun, Personal history of alcoholi sm F10.21 and Chronic pain syndrome G89.4 [address] [address] [address] [address] Jun, [address] [address] [address] Jun, Fibromyalgia M79.7 [address] [address] [address] May, Fibromyalgia M79.7 [place] [id number] [place] [address] May, [address] [address] [address] Apr, Obesity E66.9 ; Fibromyalgia M79.7 ; Insomnia G47.00 and Personal history of alcoholism F10.21 [facility] [address] [id number] [address] [place] [address] Apr, [facility] [address] [id number] [address] [place] [address] Apr, [facility] [address] [id number] [address] [place] [address] Mar, [facility] [address] [id number] [address] [place] [address] Mar, [facility] [address] [id number] [address] [place] [address] Feb, [facility] [address] [id number] [address] [place] [address] Jan, [facility] [address] [facility] [id number] [address] [place] [address] Dec, Obesity E66.9 ; Fibromyalgia M79.7 ; Personal history of alcoholism F10.21 and Insomnia G47.00 [facility] [address] [id number] [address] [place] [address] Dec, Chronic pain syndrome G89.4 [facility] [address] [facility] [id number] [address] [place] [address] Dec, [facility] [address] [facility] [id number] [address] [place] [address] Dec, [facility] [address] [id number] [address] [place] [address] Nov, [facility] [address] [facility] [id number] [address] [place] [address] Nov, [facility] [address] [facility] [id number] [address] [place] [address] Nov, Fibromyalgia M79.7 ; Obesity E66.9 ; Personal history of alcoholism F10.21 ; Insomnia G47.00 and Chronic pain syndrome G89.4 [facility] [address] [facility] [id number] [address] [place] [address] Nov, Fibromyalgia M79.7 [facility] [address] [facility] [id number] [address] [place] [address] October, Fibromyalgia M79.7 [facility] [address] [facility] [id number] [address] [place] [address] October, Obesity E66.9 ; Fibromyalgia M79.7 ; Personal history of alcoholism F10.21 and Insomnia G47.00 [facility] [address] [facility] [id number] [address] [place] [address] Sep, [facility] [address] [facility] [id number] [address] [place] [address] Aug, Fibromyalgia M79.7 ; Obesity E66.9 ; Personal history of alcoholism F10.21 and Insomnia G47.00 [facility] [address] [facility] [id number] [address] [place] [address] Aug, [facility] [address] [facility] [id number] [address] [place] [address] Jul, [facility] [address] [facility] [id number] [address] [place] [address] Jun, [facility] [address] [facility] [id number] [address] [place] [address] Jun, [facility] [address] [facility] [id number] [address] [place] [address] May, [facility] [address] [facility] [id number] [address] [place] [address] May, Fibromyalgia M79.7 ; Obesity E66.9 and Insomnia G47.00 [facility] [address] [facility] [id number] [address] [place] [address] May, [facility] [address] [facility] [id number] [address] [place] [address] May, Fibromyalgia M79.7 ; Persona l history of alcoholism F10.21 ; Insomnia G47.00 and Obesity E66.9 [address] [address] [address] Apr, [place] [id number] [place] [address] Apr, Fibromyalgia M79.7 ; Obesity E66.9 ; Insomnia G47.00 ; Personal history of alcoholism F10.21 and Frequent falls R29.6 [place] [address] [address] Apr, Obesity E66.9 ; Fibromyalgia M79.7 and Insomnia G47.00 [place] [address] [address] Mar, [address] [address] Mar, [place] [address] [address] Mar, [address] [address] Mar, Obesity E66.9 ; Fibromyalgia M79.7 and Personal history of alcoholism F10.21 [address] [address] [address] Feb, [place] [address] [address] Feb, Other malaise and fatigue 78 0.79 ; Abnormal weight gain 783.1 and Fibromyalgia 729.[address] [address] Jan, [place] [address] [address] Dec, [place] [address] [address] Dec, Fibromyalgia 729.1 and Abnor mal weight gain 783.1 [facility] [address] [id number] [address] [place] [id number] Dec, Unspecified myalgia and myos itis 729.1 ; Abnormal weight gain 783.1 and Fibromyalgia 729.1 [facility] [address] [id number] [address] [place] [address] Nov, [facility] [address] [id number] [address] [place] [address] Nov, Other malaise and fatigue 78 0.79 ; Unspecified myalgia and myositis 729.1 and Abnormal weight gain 783.1 [facility] [address] [id number] [address] [place] [address] Nov, [facility] [address] [id number] [address] [place] [address] Nov, [facility] [address] [id number] [address] [place] [address] October, [facility] [address] [id number] [address] [place] [address] October, Unspecified myalgia and myos itis 729.1 and Scabies 133.0 [facility] [address] [id number] [address] [place] [address] October, [facility] [address] [id number] [address] [place] [address] Sep, [facility] [address] [id number] [address] [place] [address] Sep, [facility] [address] [facility] [id number] [address] [place] [address] Aug, [facility] [address] [id number] [address] [place] [address] Aug, [facility] [place] [facility] [address] [id number] [address] [place] [address], [place] [address] 17 Aug, 2014 [facility] [address] [id number] [address] [place] [address], [place] [address] 17 Aug, 2014 [facility] [address] [id number] [address] [place] [address], [place] [address] 12 Aug, 2014 [facility] [address] [id number] [address] [place] [address], [place] [address] 12 Aug, 2014 [facility] [address] [id number] [address] [place] [address], [place] [address] 11 Aug, 2014 [facility] [address] [id number] [address] [place] [address], [place] [address] 11 Aug, 2014 [facility] [address] [id number] [address] [place] [address], [place] [address] 10 Aug, 2014 [facility] [address] [id number] [address] [place] [address], [place] [address] 10 Aug, 2014 [facility] [address] [id number] [address] [place] [address], [place] [address] 04 May, 2014 [facility] [address] [id number] [address] [place] [address], [place] [address] 04 May, 2014 [facility] [address] [id number] [address] [place] [address], [place] [address] 07 Mar, 2014 [facility] [address] [id number] [address] [place] [address], [place] [address] 07 Mar, 2014 [facility] [address] [id number] [address] [place] [address], [place] [address] 17 Feb, 2014 [facility] [address] [id number] [address] [place] [address], [place] [address] 17 Feb, 2014 [facility] [address] [id number] [address] [place] [address], [place] [address] 11 Feb, 2014 [facility] [address] [id number] [address] [place] [address], [place] [address] Feb, [facility] [address] [id number] [address] [place] [phone] October, [facility] [address] [id number] [address] [place] [address] October, [facility] [address] [id number] [address] [place] [address] October, [facility] [address] [id number] [address] [place] [id number] October, [facility] [address] [id number] [address] [place] [phone] Sep, [facility] [address] [id number] [address] [place] [address] Sep, [facility] [address] [id number] [address] [place] [address] Sep, [facility] [address] [id number] [address] [place] [address] Sep, [facility] [address] [id number] [address] [place] [phone] Jul, [facility] [address] [id number] [address] [place] [address] Jul, [facility] [address] [id number] [address] [place] [phone] Jun, [facility] [address] [id number] [address] [place] [phone] Jun, [facility] [address] [id number] [address] [place] [phone] May, [facility] [address] [id number] [address] [place] [phone] May, IMMUNIZATIONS No Known Immunizations SOCIAL HISTORY Never Assessed REASON FOR VISIT Refill request PLAN OF CARE VITAL SIGNS MEDICATIONS No Known Medications RESULTS No Results PROCEDURES No Known procedures INSTRUCTIONS MEDICATIONS ADMINISTERED No Known Medications MEDICAL (GENERAL) HISTORY Type Description Date Medical History fibromyalgia Medical History insomnia Medical History obesity Surgical History ganglion cyst removal 1996 Surgical History section 2004 Hospitalization History surgeries
--- OUTSIDE RECORDS SUMMARY | 2020-01-12 20:02 | XMS REPORT ---
Author Author Nani MARLEY Organization [facility] Address [address] [place] [address] Care Team Providers Care Can Line Operator Name Role Phone HUBER MARLEY Unavailable PROBLEMS Type Condition ICD9-CM Code [id number] Code Onset Dates Condition S tatus SNOMED Code Problem Fibromyalgia M79.7 Active 3774098 7 Problem Low back pain M54.5 Active 468053 009 Problem Other chronic pain G89.29 Active 8 5384745 Problem Obesity E66.9 Active 037902518 Problem Personal history of alcoholism F10.21 Active 239491577 Problem Chronic pain syndrome G89.4 Active 430573707 Problem Insomnia G47.00 Active [id number] ALLERGIES No Information ENCOUNTERS Encounter Location Date Diagnosis [facility] [id number] [place] [address] 05 Dec, 2017 Fibromyalgia M79.7 ; Low gerson k pain M54.5 ; Other chronic pain G89.29 and BMI 45.0-49.9, adult Z68.42 [facility] [id number] [place] [address] 18 Nov, 2017 [facility] [id number] [address] [place] [address] Aug, Fibromyalgia M79.7 and BMI 5 0.0-59.9, adult Z68.43 [facility] [id number] [place] [address] Aug, [facility] [id number] [place] [address] Aug, [facility] [id number] [place] [address] Jul, [facility] [address] [facility] [id number] [address] [place] [address] Jul, Insomnia G47.00 [facility] [address] [facility] [id number] [address] [place] [id number] Jul, [facility] [address] [facility] [id number] [address] [place] [address] Jul, [facility] [address] [address] Jul, [facility] [address] [id number] [address] [place] [address] Jul, Fibromyalgia M79.7 [facility] [address] [id number] [address] [place] [address] Jul, [facility] [address] [address] Jun, Chronic pain syndrome G89.4 and Fibromyalgia M79.7 [facility] [id number] [place] [address] Jun, Fibromyalgia M79.7 [facility] [address] [address] Jun, Bronchitis J40 ; Fibromyalgi a M79.7 ; Lumbago with sciatica, left side M54.42 ; Lumbago with sciatica, right side M54.41 ; Other chronic pain G89.29 and BMI 45.0-49.9, adult Z68.42 [facility] [address] [facility] [id number] [address] [place] [address] Jun, Influenza-like illness R69 [facility] [id number] [place] [address] Jun, [facility] [id number] [place] [address] Jun, Fibromyalgia M79.7 [facility] [address] [place] [address] May, Fibromyalgia M79.7 [facility] [address] [id number] [address] [place] [address] Apr, Insomnia G47.00 [facility] [address] [facility] [id number] [address] [place] [address] Apr, [facility] [id number] [place] [address] Apr, [facility] [address] [facility] [id number] [address] [place] [address] Apr, Fibromyalgia M79.7 [facility] [id number] [place] [address] 16 Mar, 2017 Encounter for immunization Z 23 [facility] [id number] [place] [id number] 10 Mar, 2017 Visit for TB skin test Z11.1 [facility] [id number] [place] [address] Mar, Fibromyalgia M79.7 [facility] [id number] [place] [address] Feb, Fibromyalgia M79.7 [facility] [id number] [place] [address] Feb, [facility] [id number] [address] [place] [address] Feb, Fibromyalgia M79.7 [facility] [id number] [place] [address] Jan, Fibromyalgia M79.7 ; Obesity E66.9 ; Insomnia G47.00 and Chronic pain syndrome G89.4 [facility] [address] [facility] [id number] [address] [place] [address] Jan, [facility] [id number] [place] [address] Jan, [facility] [address] [id number] [address] [place] [address] Dec, [facility] [address] [id number] [address] [place] [address] Dec, [facility] [address] [id number] [address] [place] [address] Dec, [facility] [address] [id number] [address] [place] [address] Nov, Chronic pain syndrome G89.4 [facility] [address] [id number] [address] [place] [address] October, Chronic pain syndrome G89.4 [facility] [address] [id number] [address] [place] [address] October, Chronic pain syndrome G89.4 [facility] [address] [id number] [address] [place] [id number] October, [facility] [address] [id number] [address] [place] [address] October, Chronic pain syndrome G89.4 [facility] [address] [id number] [address] [place] [address] October, Chronic pain syndrome G89.4 and Fibromyalgia M79.7 [facility] [address] [id number] [address] [place] [address] October, Fibromyalgia M79.7 and Chron ic pain syndrome G89.4 [facility] [address] [id number] [address] [place] [address] Sep, Encounter for immunization Z 23 [facility] [address] [id number] [address] [place] [address] Sep, [facility] [address] [id number] [address] [place] [address] Sep, [facility] [address] [id number] [address] [place] [address] Aug, Fibromyalgia M79.7 and Insom christo G47.00 [address] [address] Aug, Obesity E66.9 ; Snoring R06. 83 ; Fibromyalgia M79.7 ; Insomnia G47.00 and Screening cholesterol level Z13.220 [address] [address] [address] [address] Aug, Fibromyalgia M79.7 [address] [place] [address] [address] Jul, Obesity E66.9 ; Personal his tory of alcoholism F10.21 and Fibromyalgia M79.7 [address] [address] [address] Jul, [address] [address] [address] Jun, Obesity E66.9 ; Chronic pain syndrome G89.4 ; Fibromyalgia M79.7 ; Insomnia G47.00 and Wellness examination Z00.00 [address] [address] [address] Jun, Personal history of alcoholi sm F10.21 and Chronic pain syndrome G89.4 [address] [address] [address] Jun, [address] [address] [address] Jun, Fibromyalgia M79.7 [address] [address] [address] May, Fibromyalgia M79.7 [place] [id number] [place] [address] May, [address] [address] [address] Apr, Obesity E66.9 ; Fibromyalgia M79.7 ; Insomnia G47.00 and Personal history of alcoholism F10.21 [facility] [address] [id number] [address] [place] [address] Apr, [facility] [address] [id number] [address] [place] [address] Apr, [facility] [address] [id number] [address] [place] [address] Mar, [facility] [address] [id number] [address] [place] [address] Mar, [facility] [address] [id number] [address] [place] [address] Feb, [facility] [address] [id number] [address] [place] [id number] Jan, [facility] [address] [facility] [id number] [address] [place] [address] Dec, Obesity E66.9 ; Fibromyalgia M79.7 ; Personal history of alcoholism F10.21 and Insomnia G47.00 [facility] [address] [id number] [address] [place] [address] Dec, Chronic pain syndrome G89.4 [facility] [address] [facility] [id number] [address] [place] [address] Dec, [facility] [address] [facility] [id number] [address] [place] [address] Dec, [facility] [address] [id number] [address] [place] [address] Nov, [facility] [address] [facility] [id number] [address] [place] [address] Nov, [facility] [address] [facility] [id number] [address] [place] [address] Nov, Fibromyalgia M79.7 ; Obesity E66.9 ; Personal history of alcoholism F10.21 ; Insomnia G47.00 and Chronic pain syndrome G89.4 [facility] [address] [facility] [id number] [address] [place] [address] Nov, Fibromyalgia M79.7 [facility] [address] [facility] [id number] [address] [place] [address] October, Fibromyalgia M79.7 [facility] [address] [facility] [id number] [address] [place] [address] October, Obesity E66.9 ; Fibromyalgia M79.7 ; Personal history of alcoholism F10.21 and Insomnia G47.00 [facility] [address] [facility] [id number] [address] [place] [address] Sep, [facility] [address] [facility] [id number] [address] [place] [address] Aug, Fibromyalgia M79.7 ; Obesity E66.9 ; Personal history of alcoholism F10.21 and Insomnia G47.00 [facility] [address] [facility] [id number] [address] [place] [address] Aug, [facility] [address] [facility] [id number] [address] [place] [address] Jul, [facility] [address] [facility] [id number] [address] [place] [address] Jun, [facility] [address] [facility] [id number] [address] [place] [address] Jun, [facility] [address] [facility] [id number] [address] [place] [address] May, [facility] [address] [facility] [id number] [address] [place] [address] May, Fibromyalgia M79.7 ; Obesity E66.9 and Insomnia G47.00 [facility] [address] [facility] [id number] [address] [place] [address] May, [facility] [address] [facility] [id number] [address] [place] [address] May, Fibromyalgia M79.7 ; Persona l history of alcoholism F10.21 ; Insomnia G47.00 and Obesity E66.9 [address] [place] [address] Apr, [place] [id number] [place] [address] Apr, Fibromyalgia M79.7 ; Obesity E66.9 ; Insomnia G47.00 ; Personal history of alcoholism F10.21 and Frequent falls R29.6 [address] [place] [address] Apr, Obesity E66.9 ; Fibromyalgia M79.7 and Insomnia G47.00 [address] [place] [address] [address] Mar, [address] [address] Mar, [address] [address] [address] Mar, [address] [address] Mar, Obesity E66.9 ; Fibromyalgia M79.7 and Personal history of alcoholism F10.21 [address] [address] [address] Feb, [place] [address] [address] Feb, Other malaise and fatigue 78 0.79 ; Abnormal weight gain 783.1 and Fibromyalgia 729.[address] [address] Jan, [address] [address] [address] Dec, [address] [address] [address] Dec, Fibromyalgia 729.1 and Abnor mal weight gain 783.1 [facility] [address] [id number] [address] [place] [address] Dec, Unspecified myalgia and myos itis 729.1 ; Abnormal weight gain 783.1 and Fibromyalgia 729.1 [facility] [address] [id number] [address] [place] [address] Nov, [facility] [address] [id number] [address] [place] [address] Nov, Other malaise and fatigue 78 0.79 ; Unspecified myalgia and myositis 729.1 and Abnormal weight gain 783.1 [facility] [address] [id number] [address] [place] [address] Nov, [facility] [address] [id number] [address] [place] [address] Nov, [facility] [address] [id number] [address] [place] [address] October, [facility] [address] [id number] [address] [place] [address] October, Unspecified myalgia and myos itis 729.1 and Scabies 133.0 [facility] [address] [id number] [address] [place] [address] October, [facility] [address] [id number] [address] [place] [phone] Sep, [facility] [address] [id number] [address] [place] [address] Sep, [facility] [address] [facility] [id number] [address] [place] [phone] Aug, [facility] [address] [id number] [address] [place] [address] Aug, [facility] [place] [facility] [address] [id number] [address] [place] [address], [place] [address] 17 Aug, 2014 [facility] [address] [id number] [address] [place] [address], [place] [address] 17 Aug, 2014 [facility] [address] [id number] [address] [place] [address], [place] [address] 12 Aug, 2014 [facility] [address] [id number] [address] [place] [address], [place] [address] 12 Aug, 2014 [facility] [address] [id number] [address] [place] [address], [place] [address] 11 Aug, 2014 [facility] [address] [id number] [address] [place] [address], [place] [address] 11 Aug, 2014 [facility] [address] [id number] [address] [place] [address], [place] [address] 10 Aug, 2014 [facility] [address] [id number] [address] [place] [address], [place] [address] 10 Aug, 2014 [facility] [address] [id number] [address] [place] [address], [place] [address] 04 May, 2014 [facility] [address] [id number] [address] [place] [address], [place] [address] 04 May, 2014 [facility] [address] [id number] [address] [place] [address], [place] [address] 07 Mar, 2014 [facility] [address] [id number] [address] [place] [address], [place] [address] 07 Mar, 2014 [facility] [address] [id number] [address] [place] [address], [place] [address] 17 Feb, 2014 [facility] [address] [id number] [address] [place] [address], [place] [address] 17 Feb, 2014 [facility] [address] [id number] [address] [place] [address], [place] [address] 11 Feb, 2014 [facility] [address] [id number] [address] [place] [address], [place] [address] Feb, [facility] [address] [id number] [address] [place] [address] October, [facility] [address] [id number] [address] [place] [address] October, [facility] [address] [id number] [address] [place] [address] October, [facility] [address] [id number] [address] [place] [address] October, [facility] [address] [id number] [address] [place] [address] Sep, [facility] [address] [id number] [address] [place] [id number] Sep, [facility] [address] [id number] [address] [place] [address] Sep, [facility] [address] [id number] [address] [place] [address] Sep, [facility] [address] [id number] [address] [place] [address] Jul, [facility] [address] [id number] [address] [place] [id number] Jul, [facility] [address] [id number] [address] [place] [address] Jun, [facility] [address] [id number] [address] [place] [address] Jun, [facility] [address] [id number] [address] [place] [address] May, [facility] [address] [id number] [address] [place] [address] May, IMMUNIZATIONS No Known Immunizations SOCIAL HISTORY Never Assessed REASON FOR VISIT Nyla PLAN OF CARE VITAL SIGNS MEDICATIONS Medication Instructions Dosage Frequency Start Date End Date Duration S stacy Hernandez 10 mg Orally Once a day 1 tablet at bedtime as needed 24h Active Promethazine-Codeine 6.25-10 MG/5ML Orally every 4 hrs 1-2 tsp as n eeded 4h Jun, Unknown Duloxetine HCl 60 MG TAKE ONE CAPSULE BY MOUTH ONCE DAILY 30 Unknown Lyrica 75 MG Orally Once a day 1 capsule 24h Active RESULTS No Results PROCEDURES No Known procedures INSTRUCTIONS MEDICATIONS ADMINISTERED No Known Medications MEDICAL (GENERAL) HISTORY Type Description Date Medical History fibromyalgia Medical History insomnia Medical History obesity Surgical History ganglion cyst removal 1996 Surgical History section 2003 Hospitalization History surgeries
--- OUTSIDE RECORDS SUMMARY | 2020-01-12 20:02 | XMS REPORT ---
Author Author Nani MARLEY Organization [facility] [place] Address [address] [place] [address] Care Team Providers Care French Edge Operator Name Role Phone HUBER MARLEY Unavailable PROBLEMS Type Condition ICD9-CM Code UXY80-BW Code Onset Dates Condition S tatus SNOMED Code Problem Fibromyalgia M79.7 Active 9293573 7 Problem Low back pain M54.5 Active 336567 009 Problem Other chronic pain G89.29 Active 8 9211685 Problem Obesity E66.9 Active 032986036 Problem Personal history of alcoholism F10.21 Active 875511612 Problem Chronic pain syndrome G89.4 Active 112021178 Problem Insomnia G47.00 Active [id number] ALLERGIES No Information ENCOUNTERS Encounter Location Date Diagnosis [facility] [place] [id number] [place] [id number] 05 Dec, 2017 Fibromyalgia M79.7 ; Low gerson k pain M54.5 ; Other chronic pain G89.29 and BMI 45.0-49.9, adult Z68.42 [facility] [place] [id number] [place] [id number] 18 Nov, 2017 [facility] [address] [id number] [address] [place] [phone] Aug, Fibromyalgia M79.7 and BMI 5 0.0-59.9, adult Z68.43 [facility] [place] [id number] [place] [phone] Aug, [facility] [place] [id number] [place] [phone] Aug, [facility] [place] [id number] [place] [phone] Jul, [facility] [place] [address] [facility] [id number] [address] [place] [id number] Jul, Insomnia G47.00 [facility] [place] [address] [facility] [id number] [address] [place] [phone] Jul, [facility] [place] [address] [facility] [id number] [address] [place] [phone] Jul, [facility] [place] [address] [id number] Jul, [facility] [place] [address] [id number] [address] [place] [phone] Jul, Fibromyalgia M79.7 [facility] [place] [id number] [address] [place] [id number] Jul, [facility] [place] [address] [id number] Jun, Chronic pain syndrome G89.4 and Fibromyalgia M79.7 [facility] [place] [id number] [place] [address] Jun, Fibromyalgia M79.7 [facility] [place] [address] [id number] Jun, Bronchitis J40 ; Fibromyalgi a M79.7 ; Lumbago with sciatica, left side M54.42 ; Lumbago with sciatica, right side M54.41 ; Other chronic pain G89.29 and BMI 45.0-49.9, adult Z68.42 [facility] [address] [facility] [id number] [address] [place] [phone] Jun, Influenza-like illness R69 [facility] [place] [id number] [place] [phone] Jun, [facility] [place] [id number] [place] [phone] Jun, Fibromyalgia M79.7 [facility] [place] [address] [place] [address] May, Fibromyalgia M79.7 [facility] [place] [id number] [address] [place] [phone] Apr, Insomnia G47.00 [facility] [place] [address] [facility] [id number] [address] [place] [phone] Apr, [facility] [place] [id number] [place] [phone] Apr, [facility] [place] [address] [facility] [id number] [address] [place] [phone] Apr, Fibromyalgia M79.7 [facility] [place] [id number] [place] [phone] 16 Mar, 2017 Encounter for immunization Z 23 [facility] [place] [id number] [place] [phone] 10 Mar, 2017 Visit for TB skin test Z11.1 [facility] [place] [id number] [address] [place] [phone] Mar, Fibromyalgia M79.7 [facility] [place] [id number] [place] [phone] Feb, Fibromyalgia M79.7 [facility] [place] [id number] [address] [place] [phone] Feb, [facility] [place] [id number] [address] [place] [phone] Feb, Fibromyalgia M79.7 [facility] [place] [id number] [address] [place] [address] Jan, Fibromyalgia M79.7 ; Obesity E66.9 ; Insomnia G47.00 and Chronic pain syndrome G89.4 [facility] [place] [address] [facility] [id number] [address] [place] [phone] Jan, [facility] [place] [id number] [address] [place] [phone] Jan, [facility] [place] [address] [id number] [address] [place] [id number] Dec, [facility] [place] [address] [id number] [address] [place] [id number] Dec, [facility] [place] [address] [id number] [address] [place] [phone] Dec, [facility] [place] [address] [id number] [address] [place] [phone] Nov, Chronic pain syndrome G89.4 [facility] [place] [address] [id number] [address] [place] [phone] October, Chronic pain syndrome G89.4 [facility] [place] [address] [id number] [address] [place] [phone] October, Chronic pain syndrome G89.4 [facility] [place] [address] [id number] [address] [place] [phone] October, [facility] [place] [address] [id number] [address] [place] [phone] October, Chronic pain syndrome G89.4 [facility] [place] [address] [id number] [address] [place] [phone] October, Chronic pain syndrome G89.4 and Fibromyalgia M79.7 [facility] [place] [address] [id number] [address] [place] [phone] October, Fibromyalgia M79.7 and Chron ic pain syndrome G89.4 [facility] [place] [address] [id number] [address] [place] [phone] Sep, Encounter for immunization Z 23 [facility] [place] [address] [id number] [address] [place] [phone] Sep, [facility] [place] [address] [id number] [address] [place] [phone] Sep, [facility] [place] [address] [id number] [address] [place] [phone] Aug, Fibromyalgia M79.7 and Insom christo G47.00 [address] [address] Aug, Obesity E66.9 ; Snoring R06. 83 ; Fibromyalgia M79.7 ; Insomnia G47.00 and Screening cholesterol level Z13.220 [address] [address] [address] [address] Aug, Fibromyalgia M79.7 [address] [address] [address] [address] Jul, Obesity E66.9 ; Personal his tory of alcoholism F10.21 and Fibromyalgia M79.7 [address] [address] [address] [id number] Jul, [address] [address] [address] Jun, Obesity E66.9 ; Chronic pain syndrome G89.4 ; Fibromyalgia M79.7 ; Insomnia G47.00 and Wellness examination Z00.00 [address] [address] [address] [address] Jun, Personal history of alcoholi sm F10.21 and Chronic pain syndrome G89.4 [address] [address] [address] Jun, [address] [address] [address] Jun, Fibromyalgia M79.7 [address] [address] [address] [id number] May, Fibromyalgia M79.7 [address] [address] [id number] [place] [address] May, [address] [address] Apr, Obesity E66.9 ; Fibromyalgia M79.7 ; Insomnia G47.00 and Personal history of alcoholism F10.21 [facility] [place] [address] [id number] [address] [place] [phone] Apr, [facility] [place] [address] [id number] [address] [place] [phone] Apr, [facility] [place] [address] [id number] [address] [place] [phone] Mar, [facility] [place] [address] [id number] [address] [place] [phone] Mar, [facility] [place] [address] [id number] [address] [place] [phone] Feb, [facility] [place] [address] [id number] [address] [place] [phone] Jan, [facility] [place] [address] [facility] [id number] [address] [place] [phone] Dec, Obesity E66.9 ; Fibromyalgia M79.7 ; Personal history of alcoholism F10.21 and Insomnia G47.00 [facility] [place] [address] [id number] [address] [place] [phone] Dec, Chronic pain syndrome G89.4 [facility] [place] [address] [facility] [id number] [address] [place] [phone] Dec, [facility] [place] [address] [facility] [id number] [address] [place] [phone] Dec, [facility] [place] [address] [id number] [address] [place] [phone] Nov, [facility] [place] [address] [facility] [id number] [address] [place] [phone] Nov, [facility] [place] [address] [facility] [id number] [address] [place] [phone] Nov, Fibromyalgia M79.7 ; Obesity E66.9 ; Personal history of alcoholism F10.21 ; Insomnia G47.00 and Chronic pain syndrome G89.4 [facility] [place] [address] [facility] [id number] [address] [place] [phone] Nov, Fibromyalgia M79.7 [facility] [place] [address] [facility] [id number] [address] [place] [phone] October, Fibromyalgia M79.7 [facility] [place] [address] [facility] [id number] [address] [place] [phone] October, Obesity E66.9 ; Fibromyalgia M79.7 ; Personal history of alcoholism F10.21 and Insomnia G47.00 [facility] [place] [address] [facility] [id number] [address] [place] [phone] Sep, [facility] [place] [address] [facility] [id number] [address] [place] [phone] Aug, Fibromyalgia M79.7 ; Obesity E66.9 ; Personal history of alcoholism F10.21 and Insomnia G47.00 [facility] [place] [address] [facility] [id number] [address] [place] [phone] Aug, [facility] [place] [address] [facility] [id number] [address] [place] [phone] Jul, [facility] [place] [address] [facility] [id number] [address] [place] [phone] Jun, [facility] [place] [address] [facility] [id number] [address] [place] [phone] Jun, [facility] [place] [address] [facility] [id number] [address] [place] [phone] May, [facility] [place] [address] [facility] [id number] [address] [place] [phone] May, Fibromyalgia M79.7 ; Obesity E66.9 and Insomnia G47.00 [facility] [place] [address] [facility] [id number] [address] [place] [phone] May, [facility] [place] [address] [facility] [id number] [address] [place] [phone] May, Fibromyalgia M79.7 ; Persona l history of alcoholism F10.21 ; Insomnia G47.00 and Obesity E66.9 [place] [address] [address] Apr, [place] [id number] [place] [phone] Apr, Fibromyalgia M79.7 ; Obesity E66.9 ; Insomnia G47.00 ; Personal history of alcoholism F10.21 and Frequent falls R29.6 [place] [address] [address] Apr, Obesity E66.9 ; Fibromyalgia M79.7 and Insomnia G47.00 [place] [address] [id number] Mar, [address] [address] Mar, [place] [address] [address] Mar, [address] [address] Mar, Obesity E66.9 ; Fibromyalgia M79.7 and Personal history of alcoholism F10.21 [place] [address] [address] Feb, [place] [address] [address] Feb, Other malaise and fatigue 78 0.79 ; Abnormal weight gain 783.1 and Fibromyalgia 729.[address] [address] Jan, [place] [address] [address] Dec, [place] [address] [address] Dec, Fibromyalgia 729.1 and Abnor mal weight gain 783.1 [facility] [place] [address] [id number] [address] [place] [phone] Dec, Unspecified myalgia and myos itis 729.1 ; Abnormal weight gain 783.1 and Fibromyalgia 729.1 [facility] [place] [address] [id number] [address] [place] [phone] Nov, [facility] [place] [address] [id number] [address] [place] [phone] Nov, Other malaise and fatigue 78 0.79 ; Unspecified myalgia and myositis 729.1 and Abnormal weight gain 783.1 [facility] [place] [address] [id number] [address] [place] [phone] Nov, [facility] [place] [address] [id number] [address] [place] [phone] Nov, [facility] [place] [address] [id number] [address] [place] [phone] October, [facility] [place] [address] [id number] [address] [place] [phone] October, Unspecified myalgia and myos itis 729.1 and Scabies 133.0 [facility] [place] [address] [id number] [address] [place] [phone] October, [facility] [place] [address] [id number] [address] [place] [phone] Sep, [facility] [place] [address] [id number] [address] [place] [id number] Sep, [facility] [place] [address] [facility] [id number] [address] [place] [phone] Aug, [facility] [place] [address] [id number] [address] [place] [phone] Aug, [facility] [place] [facility] [address] [id number] [address] [place] [address], [place] [address] 17 Aug, 2014 [facility] [address] [id number] [address] [place] [address], [place] [address] 17 Aug, 2014 [facility] [address] [id number] [address] [place] [address], [place] [id number] 12 Aug, 2014 [facility] [address] [id number] [address] [place] [address], [place] [id number] 12 Aug, 2014 [facility] [address] [id number] [address] [place] [address], [place] [address] 11 Aug, 2014 [facility] [address] [id number] [address] [place] [address], [place] [address] 11 Aug, 2014 [facility] [address] [id number] [address] [place] [address], [place] [id number] 10 Aug, 2014 [facility] [address] [id number] [address] [place] [address], [place] [address] 10 Aug, 2014 [facility] [address] [id number] [address] [place] [address], [place] [id number] 04 May, 2014 [facility] [address] [id number] [address] [place] [address], [place] [address] 04 May, 2014 [facility] [address] [id number] [address] [place] [address], [place] [id number] 07 Mar, 2014 [facility] [address] [id number] [address] [place] [address], [place] [address] 07 Mar, 2014 [facility] [address] [id number] [address] [place] [address], [place] [id number] 17 Feb, 2014 [facility] [address] [id number] [address] [place] [address], [place] [id number] 17 Feb, 2014 [facility] [address] [id number] [address] [place] [address], [place] [address] 11 Feb, 2014 [facility] [address] [id number] [address] [place] [address], [place] [address] Feb, [facility] [place] [address] [id number] [address] [place] [id number] October, [facility] [place] [address] [id number] [address] [place] [id number] October, [facility] [place] [address] [id number] [address] [place] [id number] October, [facility], [place], [facility] [address] [id number] [address] [place] [id number] October, [facility], [place], [facility] [address] [id number] [address] [place] [id number] Sep, [facility], [place], [facility] [address] [id number] [address] [place] [id number] Sep, [facility], [place], [facility] [address] [id number] [address] [place] [id number] Sep, [facility], [place], [facility] [address] [id number] [address] [place] [id number] Sep, [facility], [place], [facility] [address] [id number] [address] [place] [id number] Jul, [facility], [place], [facility] [address] [id number] [address] [place] [id number] Jul, [facility], [place], [facility] [address] [id number] [address] [place] [id number] Jun, [facility], [place], [facility] [address] [id number] [address] [place] [id number] Jun, [facility], [place], [facility] [address] [id number] [address] [place] [id number] May, [facility], [place], [facility] [address] [id number] [address] [place] [id number] May, IMMUNIZATIONS No Known Immunizations SOCIAL HISTORY Never Assessed REASON FOR VISIT PLAN OF CARE VITAL SIGNS MEDICATIONS Medication [...]
--- OUTSIDE RECORDS SUMMARY | 2020-01-12 20:02 | XMS REPORT ---
Author Author Nani SCHMIDT [facility] Address [address] [place] [address] Care Team Providers Care Electro Tech Name Role Phone CARYN SCHMIDT Unavailable PROBLEMS Type Condition ICD9-CM Code DBR06-TV Code Onset Dates Condition S tatus SNOMED Code Problem Fibromyalgia M79.7 Active 6071902 7 Problem Low back pain M54.5 Active 702208 009 Problem Other chronic pain G89.29 Active 8 0679742 Problem Obesity E66.9 Active 649818454 Problem Personal history of alcoholism F10.21 Active 590484468 Problem Chronic pain syndrome G89.4 Active 123418888 Problem Insomnia G47.00 Active 483709106 ALLERGIES Substance Reaction Event Type Date Status Tramadol HCl rash Drug Allergy Aug, Active Penicillin V Potassium Unknown Drug Allergy Aug, Activ e Bactrim Unknown Drug Allergy Aug, Active Clindamycin Unknown Drug Allergy Aug, Active ENCOUNTERS Encounter Location Date Diagnosis [facility] [address] [id number] [address] [place] [address] Dec, Fibromyalgia M79.7 ; Low gerson k pain M54.5 ; Other chronic pain G89.29 and BMI 45.0-49.9, adult Z68.42 [facility] [address] [id number] [address] [place] [address] Nov, [facility] [address] [id number] [address] [place] [address] Aug, Fibromyalgia M79.7 and BMI 5 0.0-59.9, adult Z68.43 [facility] [address] [id number] [address] [place] [address] Aug, [facility] [address] [id number] [address] [place] [address] Aug, [facility] [address] [facility] [id number] [address] [place] [address] Jul, [facility] [address] [facility] [id number] [address] [place] [address] Jul, Insomnia G47.00 [facility] [address] [facility] [id number] [address] [place] [address] Jul, [facility] [address] [facility] [id number] [place] [address] Jul, [facility] [address] [address] Jul, [facility] [id number] [place] [address] Jul, Fibromyalgia M79.7 [facility] [address] [address] Jul, [facility] [address] [id number] [address] [place] [address] Jun, Chronic pain syndrome G89.4 and Fibromyalgia M79.7 [facility] [address] [id number] [address] [place] [address] Jun, Fibromyalgia M79.7 [facility] [address] [id number] [address] [place] [address] Jun, Bronchitis J40 ; Fibromyalgi a M79.7 ; Lumbago with sciatica, left side M54.42 ; Lumbago with sciatica, right side M54.41 ; Other chronic pain G89.29 and BMI 45.0-49.9, adult Z68.42 [facility] [address] [id number] [address] [place] [address] Jun, Influenza-like illness R69 [facility] [address] [id number] [address] [place] [address] Jun, [facility] [address] [facility] [id number] [address] [place] [address] Jun, Fibromyalgia M79.7 [facility] [address] [facility] [id number] [address] [place] [address] May, Fibromyalgia M79.7 [facility] [address] [facility] [id number] [address] [place] [address] Apr, Insomnia G47.00 [facility] [address] [facility] [id number] [address] [place] [address] Apr, [facility] [address] [facility] [id number] [address] [place] [address] Apr, [facility] [address] [facility] [id number] [address] [place] [address] Apr, Fibromyalgia M79.7 [facility] [address] [id number] [address] [place] [phone] 16 Mar, 2017 Encounter for immunization Z 23 [facility] [address] [facility] [id number] [address] [place] [address] 10 Mar, 2017 Visit for TB skin test Z11.1 [facility] [address] [facility] [id number] [address] [place] [address] Mar, Fibromyalgia M79.7 [facility] [address] [facility] [id number] [address] [place] [address] Feb, Fibromyalgia M79.7 [facility] [address] [facility] [id number] [address] [place] [address] Feb, [facility] [address] [facility] [id number] [address] [place] [address] Feb, Fibromyalgia M79.7 [facility] [address] [facility] [id number] [address] [place] [address] Jan, Fibromyalgia M79.7 ; Obesity E66.9 ; Insomnia G47.00 and Chronic pain syndrome G89.4 [facility] [address] [id number] [address] [place] [address] Jan, [facility] [address] [id number] [address] [place] [address] Jan, [facility] [address] [id number] [address] [place] [address] Dec, [facility] [address] [id number] [address] [place] [address] Dec, [facility] [address] [id number] [address] [place] [address] Dec, [facility] [address] [id number] [address] [place] [address] Nov, Chronic pain syndrome G89.4 [facility] [address] [id number] [address] [place] [address] October, Chronic pain syndrome G89.4 [facility] [address] [id number] [address] [place] [address] October, Chronic pain syndrome G89.4 [facility] [address] [id number] [address] [place] [address] October, [facility] [address] [id number] [address] [place] [address] October, Chronic pain syndrome G89.4 [facility] [address] [id number] [address] [place] [address] October, Chronic pain syndrome G89.4 and Fibromyalgia M79.7 [facility] [address] [id number] [address] [place] [address] October, Fibromyalgia M79.7 and Chron ic pain syndrome G89.4 [facility] [address] [id number] [address] [place] [address] Sep, Encounter for immunization Z 23 [facility] [address] [id number] [address] [place] [address] Sep, [facility] [address] [facility] [id number] [address] [place] [address] Sep, [facility] [address] [facility] [id number] [address] [place] [address] Aug, Fibromyalgia M79.7 and Insom christo G47.00 [facility] [address] [facility] [id number] [address] [place] [address] Aug, Obesity E66.9 ; Snoring R06. 83 ; Fibromyalgia M79.7 ; Insomnia G47.00 and Screening cholesterol level Z13.220 [address] [facility] [id number] [address] [place] [address] Aug, Fibromyalgia M79.7 [facility] [address] [facility] [id number] [address] [place] [address] Jul, Obesity E66.9 ; Personal his tory of alcoholism F10.21 and Fibromyalgia M79.7 [address] [address] [facility] [id number] [address] [place] [address] Jul, [facility] [address] [facility] [id number] [address] [place] [address] Jun, Obesity E66.9 ; Chronic pain syndrome G89.4 ; Fibromyalgia M79.7 ; Insomnia G47.00 and Wellness examination Z00.00 [address] [address] [facility] [id number] [address] [place] [address] Jun, Personal history of alcoholi sm F10.21 and Chronic pain syndrome G89.4 [facility] [address] [facility] [id number] [address] [place] [address] Jun, [facility] [address] [facility] [id number] [address] [place] [address] Jun, Fibromyalgia M79.7 [facility] [address] [facility] [id number] [address] [place] [address] May, Fibromyalgia M79.7 [facility] [address] [id number] [address] [place] [address] May, [facility] [address] [id number] [address] [place] [address] Apr, Obesity E66.9 ; Fibromyalgia M79.7 ; Insomnia G47.00 and Personal history of alcoholism F10.21 [facility] [address] [id number] [address] [place] [address] Apr, [facility] [address] [id number] [address] [place] [address] Apr, [facility] [address] [id number] [address] [place] [address] Mar, [facility] [address] [id number] [address] [place] [address] Mar, [facility] [address] [id number] [address] [place] [address] Feb, [facility] [address] [id number] [address] [place] [address] Jan, [facility] [address] [id number] [address] [place] [address] Dec, Obesity E66.9 ; Fibromyalgia M79.7 ; Personal history of alcoholism F10.21 and Insomnia G47.00 [facility] [address] [id number] [address] [place] [phone] Dec, Chronic pain syndrome G89.4 [facility] [address] [id number] [address] [place] [address] Dec, [facility] [address] [id number] [address] [place] [address] Dec, [facility] [address] [facility] [id number] [address] [place] [address] Nov, [facility] [address] [facility] [id number] [address] [place] [address] Nov, [facility] [id number] [place] [address] 15 Nov, 2015 Fibromyalgia M79.7 ; Obesity E66.9 ; Personal history of alcoholism F10.21 ; Insomnia G47.00 and Chronic pain syndrome G89.4 [facility] [address] [id number] [address] [place] [address] 10 Nov, 2015 Fibromyalgia M79.7 [facility] [id number] [place] [address] October, Fibromyalgia M79.7 [facility] [id number] [place] [address] October, Obesity E66.9 ; Fibromyalgia M79.7 ; Personal history of alcoholism F10.21 and Insomnia G47.00 [facility] [address] [address] Sep, [facility] [address] [address] Aug, Fibromyalgia M79.7 ; Obesity E66.9 ; Personal history of alcoholism F10.21 and Insomnia G47.00 [facility] [address] [address] Aug, [facility] [address] [id number] [address] [place] [address] Jul, [facility] [address] [id number] [address] [place] [address] Jun, [facility] [address] [id number] [address] [place] [address] Jun, [facility] [address] [address] May, [facility] [address] [id number] [address] [place] [address] May, Fibromyalgia M79.7 ; Obesity E66.9 and Insomnia G47.00 [facility] [address] [address] May, [facility] [address] [address] May, Fibromyalgia M79.7 ; Personrenny l history of alcoholism F10.21 ; Insomnia G47.00 and Obesity E66.9 [address] [address] [address] Apr, [facility] [address] [address] Apr, Fibromyalgia M79.7 ; Obesity E66.9 ; Insomnia G47.00 ; Personal history of alcoholism F10.21 and Frequent falls R29.6 [place] [address] [address] Apr, Obesity E66.9 ; Fibromyalgia M79.7 and Insomnia G47.00 [place] [address] [address] Mar, [place] [address] [address] Mar, [place] [address] [address] Mar, [place] [address] [address] Mar, Obesity E66.9 ; Fibromyalgia M79.7 and Personal history of alcoholism F10.21 [address] [address] [address] Feb, [place] [address] [address] Feb, Other malaise and fatigue 78 0.79 ; Abnormal weight gain 783.1 and Fibromyalgia 729.[address] [address] Jan, [place] [address] [id number] [address] [place] [phone] Dec, [facility] [address] [id number] [address] [place] [address] Dec, Fibromyalgia 729.1 and Abnor mal weight gain 783.1 [facility] [address] [facility] [id number] [address] [place] [address] Dec, Unspecified myalgia and myos itis 729.1 ; Abnormal weight gain 783.1 and Fibromyalgia 729.1 [facility] [address] [id number] [address] [place] [address] Nov, [facility] [address] [id number] [address] [place] [address] Nov, Other malaise and fatigue 78 0.79 ; Unspecified myalgia and myositis 729.1 and Abnormal weight gain 783.1 [facility] [address] [id number] [address] [place] [address] Nov, [facility] [address] [id number] [address] [place] [address] Nov, [facility] [address] [facility] [id number] [address] [place] [address] October, [facility] [address] [id number] [address] [place] [address] October, Unspecified myalgia and myos itis 729.1 and Scabies 133.0 [facility] [address] [id number] [address] [place] [address] October, [facility] [address] [id number] [address] [place] [address] Sep, [facility] [address] [id number] [address] [place] [address] Sep, [facility] [address] [id number] [address] [place] [address] 17 Aug, 2014 [facility] [address] [id number] [address] [place] [address], [place] [address] 17 Aug, 2014 [facility] [address] [id number] [address] [place] [address], [place] [address] 17 Aug, 2014 [facility] [address] [id number] [address] [place] [address], [place] [address] 17 Aug, 2014 [facility] [address] [id number] [address] [place] [address], [place] [address] 12 Aug, 2014 [facility] [address] [id number] [address] [place] [address], [place] [address] 12 Aug, 2014 [facility] [address] [id number] [address] [place] [address], [place] [address] 11 Aug, 2014 [facility] [address] [id number] [address] [place] [address], [place] [address] 11 Aug, 2014 [facility] [address] [id number] [address] [place] [address], [place] [address] 10 Aug, 2014 [facility] [address] [id number] [address] [place] [address], [place] [address] 10 Aug, 2014 [facility] [address] [id number] [address] [place] [address], [place] [address] 04 May, 2014 [facility] [address] [id number] [address] [place] [address], [place] [address] 04 May, 2014 [facility] [address] [id number] [address] [place] [address], [place] [address] Mar, [facility] [address] [id number] [address] [place] [address], [place] [address] Mar, [facility] [address] [id number] [address] [place] [address], [place] [address] Feb, [facility] [address] [id number] [address] [place] [address], [place] [address] Feb, [facility] [address] [id number] [address] [place] [address], [place] [address] Feb, [facility] [address] [id number] [address] [place] [address], [place] [address] Feb, [facility] [address] [id number] [address] [place] [address], [place] [address] October, [facility] [address] [id number] [address] [place] [address], [place] [address] October, [facility] [address] [id number] [address] [place] [address], [place] [address] October, [facility] [address] [id number] [address] [place] [address], [place] [address] October, [facility] [address] [id number] [address] [place] [address], [place] [address] Sep, [facility] [address] [id number] [address] [place] [address], [place] [address] Sep, [facility] [address] [id number] [address] [place] [address], [place] [address] Sep, [facility] [address] [id number] [address] [place] [address], [place] [address] Sep, [facility] [address] [id number] [address] [place] [address], [place] [address] Jul, [facility] [address] [id number] [address] [place] [address], [place] [address] Jul, [facility] [address] [id number] [address] [place] [address], [place] [address] Jun, [facility] [address] [id number] [address] [place] [address], [place] [address] Jun, [facility] [address] [id number] [address] [place] [address], [place] [address] May, [facility] [address] [id number] [address] [place] [address] May, IMMUNIZATIONS Vaccine Route Administration Date Status SOLUMEDROL (UP TO 125 MG) IM Intramuscular September 09, 2017 Admin istered SOCIAL HISTORY Never Assessed REASON FOR VISIT Triage JStrasserRN PLAN OF CARE Activity Details Follow Up prn Reason: VITAL SIGNS Height 64 in 2017-09-09 Weight 296 lbs 2017-09-09 Temperature 98.3 degrees Fahrenheit 2017-09-09 Heart Rate 88 bpm 2017-09-09 Respiratory Rate 20 2017-09-09 BMI 50.80 kg/m2 2017-09-09 Blood pressure systolic 120 mmHg 2017-09-09 Blood pressure diastolic 80 mmHg 2017-09-09 MEDICATIONS Medication Instructions Dosage Frequency Start Date End Date Duration S tatus Promethazine-Codeine 6.25-10 MG/5ML Orally every 4 hrs 1-2 tsp as n eeded 4h Jun, Not-Taking PredniSONE 50 MG Orally Once a day 1 tablet 24h Aug, Sep, 5 days Active Ambien 10 mg Orally Once a day 1 tablet at bedtime as needed 24h Active Lyrica 75 MG Orally Once a day 1 capsule 24h Active Duloxetine HCl 60 MG TAKE ONE CAPSULE BY MOUTH ONCE DAILY 30 Active RESULTS No Results PROCEDURES Procedure Date Ordered Result Body Site SOLUMEDROL (UP TO 125 MG) September 09, 2017 THER/PROPH/DIAG INJ, SC/IM September 09, 2017 INSTRUCTIONS MEDICATIONS ADMINISTERED No Known Medications MEDICAL (GENERAL) HISTORY Type Description Date Medical History fibromyalgia Medical History insomnia Medical History obesity Surgical History ganglion cyst removal 1996 Surgical History section 2004 Hospitalization History surgeries
--- OUTSIDE RECORDS SUMMARY | 2020-01-12 20:02 | XMS REPORT ---
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 Name Role Phone HUBER MARLEY Unavailable PROBLEMS Type Condition ICD9-CM Code [id number] Code Onset Dates Condition S tatus SNOMED Code Problem Fibromyalgia M79.7 Active 8437491 7 Problem Low back pain M54.5 Active 149186 009 Problem Other chronic pain G89.29 Active 8 4893577 Problem Obesity E66.9 Active [id number] Problem Personal history of alcoholism F10.21 Active 029699776 Problem Chronic pain syndrome G89.4 Active 244539803 Problem Insomnia G47.00 Active [id number] ALLERGIES No Information ENCOUNTERS Encounter Location Date Diagnosis [facility] [address] [id number] [address] [place] [id number] 05 Dec, 2017 Fibromyalgia M79.7 ; Low gerson k pain M54.5 ; Other chronic pain G89.29 and BMI 45.0-49.9, adult Z68.42 [facility] [id number] [place] [id number] 18 Nov, 2017 [facility] [address] [id number] [address] [place] [phone] Aug, Fibromyalgia M79.7 and BMI 5 0.0-59.9, adult Z68.43 [facility] [address] [id number] [place] [phone] Aug, [facility] [address] [id number] [place] [phone] Aug, [facility] [id number] [place] [phone] Jul, [facility] [address] [facility] [id number] [address] [place] [phone] Jul, Insomnia G47.00 [facility] [address] [facility] [id number] [address] [place] [phone] Jul, [facility] [address] [facility] [id number] [address] [place] [phone] Jul, [facility] [address] [id number] Jul, [facility] [address] [id number] [address] [place] [phone] Jul, Fibromyalgia M79.7 [facility] [address] [id number] [address] [place] [phone] Jul, [facility] [address] [phone] Jun, Chronic pain syndrome G89.4 and Fibromyalgia M79.7 [facility] [address] [id number] [place] [phone] Jun, Fibromyalgia M79.7 [facility] [address] [id number] Jun, Bronchitis J40 ; Fibromyalgi a M79.7 ; Lumbago with sciatica, left side M54.42 ; Lumbago with sciatica, right side M54.41 ; Other chronic pain G89.29 and BMI 45.0-49.9, adult Z68.42 [facility] [address] [facility] [id number] [address] [place] [phone] Jun, Influenza-like illness R69 [facility] [id number] [place] [id number] Jun, [facility] [address] [id number] [place] [phone] Jun, Fibromyalgia M79.7 [facility] [address] [place] [address] May, Fibromyalgia M79.7 [facility] [address] [id number] [address] [place] [phone] Apr, Insomnia G47.00 [facility] [address] [facility] [id number] [address] [place] [phone] Apr, [facility] [id number] [place] [phone] Apr, [facility] [address] [facility] [id number] [address] [place] [phone] Apr, Fibromyalgia M79.7 [facility] [id number] [place] [id number] 16 Mar, 2017 Encounter for immunization Z 23 [facility] [id number] [place] [phone] 10 Mar, 2017 Visit for TB skin test Z11.1 [facility] [address] [id number] [address] [place] [phone] Mar, Fibromyalgia M79.7 [facility] [id number] [place] [phone] Feb, Fibromyalgia M79.7 [facility] [address] [id number] [address] [place] [phone] Feb, [facility] [address] [id number] [address] [place] [phone] Feb, Fibromyalgia M79.7 [facility] [address] [id number] [address] [place] [phone] Jan, Fibromyalgia M79.7 ; Obesity E66.9 ; Insomnia G47.00 and Chronic pain syndrome G89.4 [facility] [address] [facility] [id number] [address] [place] [phone] Jan, [facility] [address] [id number] [address] [place] [phone] Jan, [facility] [address] [id number] [address] [place] [phone] Dec, [facility] [address] [id number] [address] [place] [phone] Dec, [facility] [address] [id number] [address] [place] [phone] Dec, [facility] [address] [id number] [address] [place] [phone] Nov, Chronic pain syndrome G89.4 [facility] [address] [id number] [address] [place] [phone] October, Chronic pain syndrome G89.4 [facility] [address] [id number] [address] [place] [phone] October, Chronic pain syndrome G89.4 [facility] [address] [id number] [address] [place] [phone] October, [facility] [address] [id number] [address] [place] [phone] October, Chronic pain syndrome G89.4 [facility] [address] [id number] [address] [place] [phone] October, Chronic pain syndrome G89.4 and Fibromyalgia M79.7 [facility] [address] [id number] [address] [place] [phone] October, Fibromyalgia M79.7 and Chron ic pain syndrome G89.4 [facility] [address] [id number] [address] [place] [phone] Sep, Encounter for immunization Z 23 [facility] [address] [id number] [address] [place] [phone] Sep, [facility] [address] [id number] [address] [place] [phone] Sep, [facility] [address] [id number] [address] [place] [phone] Aug, Fibromyalgia M79.7 and Insom christo G47.00 [address] [place] [address] [id number] Aug, Obesity E66.9 ; Snoring R06. 83 ; Fibromyalgia M79.7 ; Insomnia G47.00 and Screening cholesterol level Z13.220 [place] [address] [id number] Aug, Fibromyalgia M79.7 [place] [address] [id number] Jul, Obesity E66.9 ; Personal his tory of alcoholism F10.21 and Fibromyalgia M79.7 [place] [address] [address] Jul, [place] [address] [id number] Jun, Obesity E66.9 ; Chronic pain syndrome G89.4 ; Fibromyalgia M79.7 ; Insomnia G47.00 and Wellness examination Z00.00 [place] [address] [id number] Jun, Personal history of alcoholi sm F10.21 and Chronic pain syndrome G89.4 [place] [place] [address] [id number] Jun, [place] [address] [phone] Jun, Fibromyalgia M79.7 [place] [address] [id number] May, Fibromyalgia M79.7 [place] [id number] [place] [phone] May, [place] [address] [id number] Apr, Obesity E66.9 ; Fibromyalgia M79.7 ; Insomnia G47.00 and Personal history of alcoholism F10.21 [facility] [address] [id number] [address] [place] [phone] Apr, [facility] [address] [id number] [address] [place] [phone] Apr, [facility] [address] [id number] [address] [place] [phone] Mar, [facility] [address] [id number] [address] [place] [id number] Mar, [facility] [address] [id number] [address] [place] [phone] Feb, [facility] [address] [id number] [address] [place] [phone] Jan, [facility] [address] [facility] [id number] [address] [place] [phone] Dec, Obesity E66.9 ; Fibromyalgia M79.7 ; Personal history of alcoholism F10.21 and Insomnia G47.00 [facility] [address] [id number] [address] [place] [id number] Dec, Chronic pain syndrome G89.4 [facility] [address] [facility] [id number] [address] [place] [id number] Dec, [facility] [address] [facility] [id number] [address] [place] [phone] Dec, [facility] [address] [id number] [address] [place] [phone] Nov, [facility] [address] [facility] [id number] [address] [place] [phone] Nov, [facility] [address] [facility] [id number] [address] [place] [id number] Nov, Fibromyalgia M79.7 ; Obesity E66.9 ; Personal history of alcoholism F10.21 ; Insomnia G47.00 and Chronic pain syndrome G89.4 [facility] [address] [facility] [id number] [address] [place] [phone] Nov, Fibromyalgia M79.7 [facility] [address] [facility] [id number] [address] [place] [phone] October, Fibromyalgia M79.7 [facility] [address] [facility] [id number] [address] [place] [phone] October, Obesity E66.9 ; Fibromyalgia M79.7 ; Personal history of alcoholism F10.21 and Insomnia G47.00 [facility] [address] [facility] [id number] [address] [place] [phone] Sep, [facility] [address] [facility] [id number] [address] [place] [phone] Aug, Fibromyalgia M79.7 ; Obesity E66.9 ; Personal history of alcoholism F10.21 and Insomnia G47.00 [facility] [address] [facility] [id number] [address] [place] [phone] Aug, [facility] [address] [facility] [id number] [address] [place] [phone] Jul, [facility] [address] [facility] [id number] [address] [place] [phone] Jun, [facility] [address] [facility] [id number] [address] [place] [phone] Jun, [facility] [address] [facility] [id number] [address] [place] [phone] May, [facility] [address] [facility] [id number] [address] [place] [phone] May, Fibromyalgia M79.7 ; Obesity E66.9 and Insomnia G47.00 [facility] [address] [facility] [id number] [address] [place] [id number] May, [facility] [address] [facility] [id number] [address] [place] [phone] May, Fibromyalgia M79.7 ; Persona l history of alcoholism F10.21 ; Insomnia G47.00 and Obesity E66.9 [place] [address] [id number] Apr, [place] [id number] [place] [phone] Apr, Fibromyalgia M79.7 ; Obesity E66.9 ; Insomnia G47.00 ; Personal history of alcoholism F10.21 and Frequent falls R29.6 [place] [address] [id number] Apr, Obesity E66.9 ; Fibromyalgia M79.7 and Insomnia G47.00 [place] [address] [address] Mar, [address] [id number] Mar, [place] [address] [id number] Mar, [address] [id number] Mar, Obesity E66.9 ; Fibromyalgia M79.7 and Personal history of alcoholism F10.21 [place] [address] [address] Feb, [place] [address] [id number] Feb, Other malaise and fatigue 78 0.79 ; Abnormal weight gain 783.1 and Fibromyalgia 729.[address] [id number] Jan, [place] [address] [id number] Dec, [place] [address] [id number] Dec, Fibromyalgia 729.1 and Abnor mal weight gain 783.1 [facility] [address] [id number] [address] [place] [phone] Dec, Unspecified myalgia and myos itis 729.1 ; Abnormal weight gain 783.1 and Fibromyalgia 729.1 [facility] [address] [id number] [address] [place] [phone] Nov, [facility] [address] [id number] [address] [place] [phone] Nov, Other malaise and fatigue 78 0.79 ; Unspecified myalgia and myositis 729.1 and Abnormal weight gain 783.1 [facility] [address] [id number] [address] [place] [phone] Nov, [facility] [address] [id number] [address] [place] [phone] Nov, [facility] [address] [id number] [address] [place] [phone] October, [facility] [address] [id number] [address] [place] [phone] October, Unspecified myalgia and myos itis 729.1 and Scabies 133.0 [facility] [address] [id number] [address] [place] [phone] October, [facility] [address] [id number] [address] [place] [phone] Sep, [facility] [address] [id number] [address] [place] [phone] Sep, [facility] [address] [facility] [id number] [address] [place] [phone] Aug, [facility] [address] [id number] [address] [place] [phone] Aug, [facility] [place] [facility] [address] [id number] [address] [place] [address], [place] [id number] 17 Aug, 2014 [facility] [address] [id number] [address] [place] [address], [place] [id number] 17 Aug, 2014 [facility] [address] [id number] [address] [place] [address], [place] [id number] 12 Aug, 2014 [facility] [address] [id number] [address] [place] [address], [place] [id number] 12 Aug, 2014 [facility] [address] [id number] [address] [place] [address], [place] [id number] 11 Aug, 2014 [facility] [address] [id number] [address] [place] [address], [place] [id number] 11 Aug, 2014 [facility] [address] [id number] [address] [place] [address], [place] [id number] 10 Aug, 2014 [facility] [address] [id number] [address] [place] [address], [place] [id number] 10 Aug, 2014 [facility] [address] [id number] [address] [place] [address], [place] [id number] 04 May, 2014 [facility] [address] [id number] [address] [place] [address], [place] [id number] 04 May, 2014 [facility] [address] [id number] [address] [place] [address], [place] [id number] 07 Mar, 2014 [facility] [address] [id number] [address] [place] [address], [place] [id number] 07 Mar, 2014 [facility] [address] [id number] [address] [place] [address], [place] [id number] 17 Feb, 2014 [facility] [address] [id number] [address] [place] [address], [place] [id number] 17 Feb, 2014 [facility] [address] [id number] [address] [place] [address], [place] [id number] 11 Feb, 2014 [facility] [address] [id number] [address] [place] [address], [place] [id number] Feb, [facility] [address] [id number] [address] [place] [phone] October, [facility] [address] [id number] [address] [place] [phone] October, [facility] [address] [id number] [address] [place] [phone] October, [facility] [address] [id number] [address] [place] [id number] October, [facility] [address] [id number] [address] [place] [phone] Sep, [facility] [address] [id number] [address] [place] [phone] Sep, [facility] [address] [id number] [address] [place] [phone] Sep, [facility] [address] [id number] [address] [place] [phone] Sep, [facility] [address] [id number] [address] [place] [phone] Jul, [facility] [address] [id number] [address] [place] [id number] Jul, [facility] [address] [id number] [address] [place] [phone] Jun, [facility] [address] [id number] [address] [place] [phone] Jun, [facility] [address] [id number] [address] [place] [phone] May, [facility] [address] [id number] [address] [place] [phone] May, IMMUNIZATIONS No Known Immunizations SOCIAL HISTORY Never Assessed REASON FOR VISIT [employer] Results PLAN OF CARE VITAL SIGNS MEDICATIONS No Known Medications RESULTS No Results PROCEDURES No Known procedures INSTRUCTIONS MEDICATIONS ADMINISTERED No Known Medications MEDICAL (GENERAL) HISTORY Type Description Date Medical History fibromyalgia Medical History insomnia Medical History obesity Surgical History ganglion cyst removal 1996 Surgical History section 2004 Hospitalization History surgeries
--- OUTSIDE RECORDS SUMMARY | 2020-01-12 20:03 | XMS REPORT ---
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 Role Phone HUBER MARLEY Unavailable PROBLEMS Type Condition ICD9-CM Code [id number] Code Onset Dates Condition S tatus SNOMED Code Problem Fibromyalgia M79.7 Active 4013534 7 Problem Low back pain M54.5 Active 912044 009 Problem Other chronic pain G89.29 Active 8 6992998 Problem Obesity E66.9 Active 648567184 Problem Personal history of alcoholism F10.21 Active 137110162 Problem Chronic pain syndrome G89.4 Active 073657784 Problem Insomnia G47.00 Active [id number] ALLERGIES No Information ENCOUNTERS Encounter Location Date Diagnosis [facility] [id number] [address] [place] [id number] 05 Dec, 2017 Fibromyalgia M79.7 ; Low gerson k pain M54.5 ; Other chronic pain G89.29 and BMI 45.0-49.9, adult Z68.42 [facility] [id number] [place] [phone] 18 Nov, 2017 [facility] [address] [id number] [address] [place] [address] Aug, Fibromyalgia M79.7 and BMI 5 0.0-59.9, adult Z68.43 [facility] [id number] [place] [address] Aug, [facility] [id number] [place] [address] Aug, [facility] [address] [id number] [place] [address] Jul, [facility] [address] [facility] [id number] [address] [place] [address] Jul, Insomnia G47.00 [facility] [address] [facility] [id number] [address] [place] [address] Jul, [facility] [address] [facility] [id number] [address] [place] [address] Jul, [facility] [address] [address] Jul, [facility] [address] [id number] [address] [place] [address] Jul, Fibromyalgia M79.7 [facility] [id number] [address] [place] [address] Jul, [facility] [address] [address] Jun, Chronic pain syndrome G89.4 and Fibromyalgia M79.7 [facility] [address] [id number] [place] [address] Jun, Fibromyalgia M79.7 [facility] [address] [address] Jun, Bronchitis J40 ; Fibromyalgi a M79.7 ; Lumbago with sciatica, left side M54.42 ; Lumbago with sciatica, right side M54.41 ; Other chronic pain G89.29 and BMI 45.0-49.9, adult Z68.42 [facility] [address] [facility] [id number] [address] [place] [address] Jun, Influenza-like illness R69 [facility] [id number] [place] [address] Jun, [facility] [address] [id number] [place] [address] Jun, Fibromyalgia M79.7 [facility] [address] [place] [address] May, Fibromyalgia M79.7 [facility] [id number] [address] [place] [address] Apr, Insomnia G47.00 [facility] [address] [facility] [id number] [address] [place] [address] Apr, [facility] [id number] [place] [address] Apr, [facility] [address] [facility] [id number] [address] [place] [address] Apr, Fibromyalgia M79.7 [facility] [id number] [place] [address] 16 Mar, 2017 Encounter for immunization Z 23 [facility] [id number] [place] [address] 10 Mar, 2017 Visit for TB skin test Z11.1 [facility] [id number] [address] [place] [address] Mar, Fibromyalgia M79.7 [facility] [id number] [place] [address] Feb, Fibromyalgia M79.7 [facility] [id number] [address] [place] [address] Feb, [facility] [id number] [address] [place] [address] Feb, Fibromyalgia M79.7 [facility] [id number] [address] [place] [address] Jan, Fibromyalgia M79.7 ; Obesity E66.9 ; Insomnia G47.00 and Chronic pain syndrome G89.4 [facility] [address] [facility] [id number] [address] [place] [address] Jan, [facility] [id number] [address] [place] [address] Jan, [facility] [address] [id number] [address] [place] [phone] Dec, [facility] [address] [id number] [address] [place] [address] Dec, [facility] [address] [id number] [address] [place] [address] Dec, [facility] [address] [id number] [address] [place] [address] Nov, Chronic pain syndrome G89.4 [facility] [address] [id number] [address] [place] [address] October, Chronic pain syndrome G89.4 [facility] [address] [id number] [address] [place] [address] October, Chronic pain syndrome G89.4 [facility] [address] [id number] [address] [place] [address] October, [facility] [address] [id number] [address] [place] [address] October, Chronic pain syndrome G89.4 [facility] [address] [id number] [address] [place] [address] October, Chronic pain syndrome G89.4 and Fibromyalgia M79.7 [facility] [address] [id number] [address] [place] [address] October, Fibromyalgia M79.7 and Chron ic pain syndrome G89.4 [facility] [address] [id number] [address] [place] [address] Sep, Encounter for immunization Z 23 [facility] [address] [id number] [address] [place] [address] Sep, [facility] [address] [id number] [address] [place] [address] Sep, [facility] [address] [id number] [address] [place] [address] Aug, Fibromyalgia M79.7 and Insom christo G47.00 [address] [address] Aug, Obesity E66.9 ; Snoring R06. 83 ; Fibromyalgia M79.7 ; Insomnia G47.00 and Screening cholesterol level Z13.220 [address] [address] Aug, Fibromyalgia M79.7 [address] [address] Jul, Obesity E66.9 ; Personal his tory of alcoholism F10.21 and Fibromyalgia M79.7 [address] [address] [address] Jul, [address] [address] Jun, Obesity E66.9 ; Chronic pain syndrome G89.4 ; Fibromyalgia M79.7 ; Insomnia G47.00 and Wellness examination Z00.00 [address] [address] [address] Jun, Personal history of alcoholi sm F10.21 and Chronic pain syndrome G89.4 [address] [address] Jun, [address] [address] Jun, Fibromyalgia M79.7 [address] [address] [address] May, Fibromyalgia M79.7 [address] [id number] [place] [address] May, [address] [address] [address] Apr, Obesity E66.9 ; Fibromyalgia M79.7 ; Insomnia G47.00 and Personal history of alcoholism F10.21 [facility] [address] [id number] [address] [place] [address] Apr, [facility] [address] [id number] [address] [place] [address] Apr, [facility] [address] [id number] [address] [place] [address] Mar, [facility] [address] [id number] [address] [place] [address] Mar, [facility] [address] [id number] [address] [place] [address] Feb, [facility] [address] [id number] [address] [place] [address] Jan, [facility] [address] [facility] [id number] [address] [place] [address] Dec, Obesity E66.9 ; Fibromyalgia M79.7 ; Personal history of alcoholism F10.21 and Insomnia G47.00 [facility] [address] [id number] [address] [place] [address] Dec, Chronic pain syndrome G89.4 [facility] [address] [facility] [id number] [address] [place] [address] Dec, [facility] [address] [facility] [id number] [address] [place] [address] Dec, [facility] [address] [id number] [address] [place] [address] Nov, [facility] [address] [facility] [id number] [address] [place] [phone] Nov, [facility] [address] [facility] [id number] [address] [place] [address] Nov, Fibromyalgia M79.7 ; Obesity E66.9 ; Personal history of alcoholism F10.21 ; Insomnia G47.00 and Chronic pain syndrome G89.4 [facility] [address] [facility] [id number] [address] [place] [address] Nov, Fibromyalgia M79.7 [facility] [address] [facility] [id number] [address] [place] [address] October, Fibromyalgia M79.7 [facility] [address] [facility] [id number] [address] [place] [address] October, Obesity E66.9 ; Fibromyalgia M79.7 ; Personal history of alcoholism F10.21 and Insomnia G47.00 [facility] [address] [facility] [id number] [address] [place] [address] Sep, [facility] [address] [facility] [id number] [address] [place] [address] Aug, Fibromyalgia M79.7 ; Obesity E66.9 ; Personal history of alcoholism F10.21 and Insomnia G47.00 [facility] [address] [facility] [id number] [address] [place] [address] Aug, [facility] [address] [facility] [id number] [address] [place] [address] Jul, [facility] [address] [facility] [id number] [address] [place] [address] Jun, [facility] [address] [facility] [id number] [address] [place] [address] Jun, [facility] [address] [facility] [id number] [address] [place] [address] May, [facility] [address] [facility] [id number] [address] [place] [address] May, Fibromyalgia M79.7 ; Obesity E66.9 and Insomnia G47.00 [facility] [address] [facility] [id number] [address] [place] [address] May, [facility] [address] [facility] [id number] [address] [place] [address] May, Fibromyalgia M79.7 ; Persona l history of alcoholism F10.21 ; Insomnia G47.00 and Obesity E66.9 [address] [place] [address] [address] Apr, [address] [id number] [place] [address] Apr, Fibromyalgia M79.7 ; Obesity E66.9 ; Insomnia G47.00 ; Personal history of alcoholism F10.21 and Frequent falls R29.6 [address] [address] [address] Apr, Obesity E66.9 ; Fibromyalgia M79.7 and Insomnia G47.00 [address] [place] [address] [address] Mar, [address] [address] Mar, [address] [address] Mar, [address] [address] Mar, Obesity E66.9 ; Fibromyalgia M79.7 and Personal history of alcoholism F10.21 [address] [address] [address] Feb, [address] [address] [address] Feb, Other malaise and fatigue 78 0.79 ; Abnormal weight gain 783.1 and Fibromyalgia 729.[address] [address] Jan, [address] [place] [address] [address] Dec, [address] [place] [address] [address] Dec, Fibromyalgia 729.1 and Abnor mal weight gain 783.1 [facility] [address] [id number] [address] [place] [address] Dec, Unspecified myalgia and myos itis 729.1 ; Abnormal weight gain 783.1 and Fibromyalgia 729.1 [facility] [address] [id number] [address] [place] [address] Nov, [facility] [address] [id number] [address] [place] [address] Nov, Other malaise and fatigue 78 0.79 ; Unspecified myalgia and myositis 729.1 and Abnormal weight gain 783.1 [facility] [address] [id number] [address] [place] [address] Nov, [facility] [address] [id number] [address] [place] [address] Nov, [facility] [address] [id number] [address] [place] [address] October, [facility] [address] [id number] [address] [place] [address] October, Unspecified myalgia and myos itis 729.1 and Scabies 133.0 [facility] [address] [id number] [address] [place] [address] October, [facility] [address] [id number] [address] [place] [address] Sep, [facility] [address] [id number] [address] [place] [address] Sep, [facility] [address] [facility] [id number] [address] [place] [address] Aug, [facility] [address] [id number] [address] [place] [address] Aug, [facility] [place] [facility] [address] [id number] [address] [place] [address], [place] [address] 17 Aug, 2014 [facility] [address] [id number] [address] [place] [address], [place] [address] 17 Aug, 2014 [facility] [address] [id number] [address] [place] [address], [place] [address] 12 Aug, 2014 [facility] [address] [id number] [address] [place] [address], [place] [address] 12 Aug, 2014 [facility] [address] [id number] [address] [place] [address], [place] [address] 11 Aug, 2014 [facility] [address] [id number] [address] [place] [address], [place] [address] 11 Aug, 2014 [facility] [address] [id number] [address] [place] [address], [place] [address] 10 Aug, 2014 [facility] [address] [id number] [address] [place] [address], [place] [address] 10 Aug, 2014 [facility] [address] [id number] [address] [place] [address], [place] [address] 04 May, 2014 [facility] [address] [id number] [address] [place] [address], [place] [address] 04 May, 2014 [facility] [address] [id number] [address] [place] [address], [place] [address] 07 Mar, 2014 [facility] [address] [id number] [address] [place] [address], [place] [address] 07 Mar, 2014 [facility] [address] [id number] [address] [place] [address], [place] [address] 17 Feb, 2014 [facility] [address] [id number] [address] [place] [address], [place] [address] 17 Feb, 2014 [facility] [address] [id number] [address] [place] [address], [place] [address] 11 Feb, 2014 [facility] [address] [id number] [address] [place] [address], [place] [address] Feb, [facility] [address] [id number] [address] [place] [address] October, [facility] [address] [id number] [address] [place] [address] October, [facility] [address] [id number] [address] [place] [address] October, [facility] [address] [id number] [address] [place] [address] October, [facility] [address] [id number] [address] [place] [address] Sep, [facility] [address] [id number] [address] [place] [address] Sep, [facility] [address] [id number] [address] [place] [address] Sep, [facility] [address] [id number] [address] [place] [address] Sep, [facility] [address] [id number] [address] [place] [address] Jul, [facility] [address] [id number] [address] [place] [address] Jul, [facility] [address] [id number] [address] [place] [address] Jun, [facility] [address] [id number] [address] [place] [address] Jun, [facility] [address] [id number] [address] [place] [address] May, [facility] [address] [id number] [address] [place] [address] May, IMMUNIZATIONS No Known Immunizations SOCIAL HISTORY Never Assessed REASON FOR VISIT [employer] results PLAN OF CARE VITAL SIGNS MEDICATIONS No Known Medications RESULTS No Results PROCEDURES No Known procedures INSTRUCTIONS MEDICATIONS ADMINISTERED No Known Medications MEDICAL (GENERAL) HISTORY Type Description Date Medical History fibromyalgia Medical History insomnia Medical History obesity Surgical History ganglion cyst removal 1996 Surgical History section 2004 Hospitalization History surgeries
--- OUTSIDE RECORDS SUMMARY | 2020-01-12 20:03 | XMS REPORT ---
Author Author Nani ANDERSON Organization [facility] Address [address] [place] [address] Care Team Providers Care Financial Services Counselor Name Role Phone BRANDI ANDERSON Unavailable PROBLEMS Type Condition ICD9-CM Code [id number] Code Onset Dates Condition S tatus SNOMED Code Problem Personal history of alcoholism F10.21 Active 031978591 Problem Fibromyalgia M79.7 Active 3011586 7 Problem Other chronic pain G89.29 Active 8 9036135 Problem Lumbago with sciatica, right side M54.41 Active 302959293641843 Problem Insomnia G47.00 Active 016655099 Problem Obesity E66.9 Active 353470821 Problem Lumbago with sciatica, left side M54.42 Active 318669828 Problem Chronic pain syndrome G89.4 Active [id number] ALLERGIES No Information ENCOUNTERS Encounter Location Date Diagnosis [facility] [id number] [place] [phone] Aug, Fibromyalgia M79.7 and BMI 5 0.0-59.9, adult Z68.43 [facility] [id number] [place] [phone] Aug, [facility] [id number] [place] [phone] Aug, [facility] [id number] [place] [phone] Jul, [facility] [id number] [place] [phone] Jul, Insomnia G47.00 [facility] [address] [id number] [address] [place] [phone] Jul, [facility] [id number] [place] [phone] Jul, [facility] [address] [phone] Jul, [facility] [address] [address] Jul, Fibromyalgia M79.7 [facility] [address] [address] Jul, [facility] [address] [address] Jun, Chronic pain syndrome G89.4 and Fibromyalgia M79.7 [facility] [address] [phone] Jun, Fibromyalgia M79.7 [facility] [address] [address] Jun, Bronchitis J40 ; Fibromyalgi a M79.7 ; Lumbago with sciatica, left side M54.42 ; Lumbago with sciatica, right side M54.41 ; Other chronic pain G89.29 and BMI 45.0-49.9, adult Z68.42 [facility] [id number] [place] [phone] Jun, Influenza-like illness R69 [facility] [id number] [place] [phone] Jun, [facility] [id number] [place] [phone] Jun, Fibromyalgia M79.7 [facility] [address] [address] May, Fibromyalgia M79.7 [facility] [id number] [place] [address] Apr, Insomnia G47.00 [facility] [id number] [place] [phone] Apr, [facility] [address] [facility] [id number] [address] [place] [phone] Apr, [facility] [address] [facility] [id number] [address] [place] [phone] Apr, Fibromyalgia M79.7 [facility] [address] [facility] [id number] [address] [place] [phone] 16 Mar, 2017 Encounter for immunization Z 23 [facility] [address] [facility] [id number] [address] [place] [phone] 10 Mar, 2017 Visit for TB skin test Z11.1 [facility] [address] [facility] [id number] [address] [place] [phone] 04 Mar, 2017 Fibromyalgia M79.7 [facility] [address] [facility] [id number] [address] [place] [phone] Feb, Fibromyalgia M79.7 [facility] [address] [facility] [id number] [address] [place] [phone] Feb, [facility] [address] [facility] [id number] [address] [place] [phone] Feb, Fibromyalgia M79.7 [facility] [address] [facility] [id number] [address] [place] [phone] Jan, Fibromyalgia M79.7 ; Obesity E66.9 ; Insomnia G47.00 and Chronic pain syndrome G89.4 [facility] [address] [facility] [id number] [address] [place] [phone] Jan, [facility] [address] [facility] [id number] [address] [place] [phone] Jan, [facility] [address] [facility] [id number] [address] [place] [phone] Dec, [facility] [address] [facility] [id number] [address] [place] [phone] Dec, [facility] [address] [id number] [address] [place] [phone] Dec, [facility] [address] [facility] [id number] [address] [place] [phone] Nov, Chronic pain syndrome G89.4 [facility] [address] [facility] [id number] [address] [place] [phone] October, Chronic pain syndrome G89.4 [facility] [address] [id number] [address] [place] [phone] October, Chronic pain syndrome G89.4 [facility] [address] [id number] [address] [place] [phone] October, [facility] [address] [facility] [id number] [address] [place] [phone] October, Chronic pain syndrome G89.4 [facility] [address] [facility] [id number] [address] [place] [phone] October, Chronic pain syndrome G89.4 and Fibromyalgia M79.7 [facility] [address] [facility] [id number] [address] [place] [phone] October, Fibromyalgia M79.7 and Chron ic pain syndrome G89.4 [facility] [address] [facility] [id number] [address] [place] [phone] Sep, Encounter for immunization Z 23 [facility] [address] [facility] [id number] [address] [place] [phone] Sep, [facility] [address] [facility] [id number] [address] [place] [phone] Sep, [facility] [address] [facility] [id number] [address] [place] [phone] Aug, Fibromyalgia M79.7 and Insom christo G47.00 [facility] [address] [facility] [id number] [address] [place] [phone] Aug, Obesity E66.9 ; Snoring R06. 83 ; Fibromyalgia M79.7 ; Insomnia G47.00 and Screening cholesterol level Z13.220 [facility] [address] [facility] [id number] [address] [place] [phone] Aug, Fibromyalgia M79.7 [facility] [address] [facility] [id number] [address] [place] [phone] Jul, Obesity E66.9 ; Personal his tory of alcoholism F10.21 and Fibromyalgia M79.7 [facility] [address] [facility] [id number] [address] [place] [phone] Jul, [facility] [address] [facility] [id number] [address] [place] [phone] Jun, Obesity E66.9 ; Chronic pain syndrome G89.4 ; Fibromyalgia M79.7 ; Insomnia G47.00 and Wellness examination Z00.00 [address] [address] [id number] [place] [phone] Jun, Personal history of alcoholi sm F10.21 and Chronic pain syndrome G89.4 [facility] [address] [facility] [id number] [address] [place] [phone] Jun, [facility] [address] [facility] [id number] [address] [place] [phone] Jun, Fibromyalgia M79.7 [facility] [address] [facility] [id number] [address] [place] [phone] May, Fibromyalgia M79.7 [facility] [address] [facility] [id number] [address] [place] [phone] May, [facility] [address] [facility] [id number] [address] [place] [phone] Apr, Obesity E66.9 ; Fibromyalgia M79.7 ; Insomnia G47.00 and Personal history of alcoholism F10.21 [facility] [address] [facility] [id number] [address] [place] [phone] Apr, [facility] [address] [id number] [address] [place] [phone] Apr, [facility] [address] [id number] [address] [place] [phone] Mar, [facility] [address] [id number] [address] [place] [phone] Mar, [facility] [address] [id number] [address] [place] [phone] Feb, [facility] [address] [id number] [address] [place] [phone] Jan, [facility] [address] [id number] [address] [place] [phone] Dec, Obesity E66.9 ; Fibromyalgia M79.7 ; Personal history of alcoholism F10.21 and Insomnia G47.00 [facility] [address] [id number] [address] [place] [phone] Dec, Chronic pain syndrome G89.4 [facility] [address] [id number] [address] [place] [phone] Dec, [facility] [address] [facility] [id number] [address] [place] [phone] Dec, [facility] [address] [facility] [id number] [address] [place] [phone] Nov, [facility] [address] [facility] [id number] [address] [place] [phone] Nov, [facility] [address] [facility] [id number] [address] [place] [phone] Nov, Fibromyalgia M79.7 ; Obesity E66.9 ; Personal history of alcoholism F10.21 ; Insomnia G47.00 and Chronic pain syndrome G89.4 [facility] [address] [id number] [address] [place] [phone] Nov, Fibromyalgia M79.7 [facility] [address] [facility] [id number] [address] [place] [phone] October, Fibromyalgia M79.7 [facility] [address] [facility] [id number] [address] [place] [id number] October, Obesity E66.9 ; Fibromyalgia M79.7 ; Personal history of alcoholism F10.21 and Insomnia G47.00 [facility] [address] [facility] [id number] [address] [place] [phone] Sep, [facility] [address] [facility] [id number] [address] [place] [phone] Aug, Fibromyalgia M79.7 ; Obesity E66.9 ; Personal history of alcoholism F10.21 and Insomnia G47.00 [facility] [address] [facility] [id number] [address] [place] [phone] Aug, [facility] [address] [id number] [address] [place] [phone] Jul, [facility] [address] [id number] [address] [place] [phone] Jun, [facility] [address] [id number] [address] [place] [phone] Jun, [facility] [address] [phone] May, [facility] [address] [id number] [address] [place] [phone] May, Fibromyalgia M79.7 ; Obesity E66.9 and Insomnia G47.00 [facility] [address] [facility] [id number] [address] [place] [phone] May, [facility] [address] [id number] [address] [place] [phone] May, Fibromyalgia M79.7 ; Persona l history of alcoholism F10.21 ; Insomnia G47.00 and Obesity E66.9 [facility] [address] [facility] [id number] [address] [place] [phone] Apr, [facility] [address] [id number] [address] [place] [phone] Apr, Fibromyalgia M79.7 ; Obesity E66.9 ; Insomnia G47.00 ; Personal history of alcoholism F10.21 and Frequent falls R29.6 [address] [place] [id number] [place] [phone] Apr, Obesity E66.9 ; Fibromyalgia M79.7 and Insomnia G47.00 [address] [phone] Mar, [address] [address] [phone] Mar, [address] [address] Mar, [address] [place] [address] [address] Mar, Obesity E66.9 ; Fibromyalgia M79.7 and Personal history of alcoholism F10.21 [address] [place] [address] [phone] Feb, [place] [address] [id number] Feb, Other malaise and fatigue 78 0.79 ; Abnormal weight gain 783.1 and Fibromyalgia 729.1 [address] [place] [id number] [place] [phone] Jan, [place] [address] [id number] [address] [place] [phone] Dec, [place] [address] [address] Dec, Fibromyalgia 729.1 and Abnor mal weight gain 783.1 [address] [place] [id number] [place] [phone] Dec, Unspecified myalgia and myos itis 729.1 ; Abnormal weight gain 783.1 and Fibromyalgia 729.1 [facility] [address] [id number] [address] [place] [phone] Nov, [facility] [address] [id number] [address] [place] [phone] Nov, Other malaise and fatigue 78 0.79 ; Unspecified myalgia and myositis 729.1 and Abnormal weight gain 783.1 [facility] [address] [id number] [address] [place] [phone] Nov, [facility] [address] [id number] [address] [place] [phone] Nov, [facility] [address] [id number] [address] [place] [phone] October, [facility] [address] [id number] [address] [place] [phone] October, Unspecified myalgia and myos itis 729.1 and Scabies 133.0 [facility] [address] [id number] [address] [place] [phone] October, [facility] [address] [id number] [address] [place] [phone] Sep, [facility] [address] [id number] [address] [place] [phone] Sep, [facility] [address] [id number] [address] [place] [phone] Aug, [facility] [address] [id number] [address] [place] [phone] Aug, [facility] [address] [id number] [address] [place] [phone] Aug, [facility] [address] [facility] [id number] [address] [place] [phone] Aug, [facility] [address] [id number] [address] [place] [phone] 12 Aug, 2014 [facility] [address] [id number] [address] [place] [address], [place] [address] 12 Aug, 2014 [facility] [address] [id number] [address] [place] [address], [place] [address] Aug, [facility] [address] [id number] [address] [place] [address], [place] [address] 11 Aug, 2014 [facility] [address] [id number] [address] [place] [address], [place] [address] 10 Aug, 2014 [facility] [address] [id number] [address] [place] [address], [place] [address] 10 Aug, 2014 [facility] [address] [id number] [address] [place] [address], [place] [address] May, [facility] [address] [id number] [address] [place] [address], [place] [address] May, [facility] [address] [id number] [address] [place] [address], [place] [address] Mar, [facility] [address] [id number] [address] [place] [address], [place] [address] Mar, [facility] [address] [id number] [address] [place] [address], [place] [address] Feb, [facility] [address] [id number] [address] [place] [address], [place] [address] Feb, [facility] [address] [id number] [address] [place] [address], [place] [address] Feb, [facility] [address] [id number] [address] [place] [address], [place] [address] Feb, [facility] [address] [id number] [address] [place] [address], [place] [address] October, [facility] [address] [id number] [address] [place] [address], [place] [address] October, [facility] [address] [id number] [address] [place] [phone] October, [facility] [address] [id number] [address] [place] [phone] October, [facility] [address] [id number] [address] [place] [phone] Sep, [facility] [address] [id number] [address] [place] [phone] Sep, [facility] [address] [id number] [address] [place] [phone] Sep, [facility] [address] [id number] [address] [place] [phone] Sep, [facility] [address] [id number] [address] [place] [phone] Jul, [facility] [address] [id number] [address] [place] [phone] Jul, [facility] [address] [id number] [address] [place] [phone] Jun, [facility] [address] [id number] [address] [place] [phone] Jun, [facility] [address] [id number] [address] [place] [phone] May, [facility] [address] [id number] [address] [place] [phone] May, IMMUNIZATIONS No Known Immunizations SOCIAL HISTORY Never Assessed REASON FOR VISIT Hydrocodone-Ibuprofen 02/24/17 PLAN OF CARE VITAL SIGNS MEDICATIONS Medication Instructions Dosage Frequency Start Date End Date Duration S stacy Hydrocodone-Ibuprofen 7.5-200 MG Orally 3 times a day 1 tablet as n eeded 8h Jan, 28 days Active RESULTS No Results PROCEDURES No Known procedures INSTRUCTIONS MEDICATIONS ADMINISTERED No Known Medications MEDICAL (GENERAL) HISTORY Type Description Date Medical History fibromyalgia Medical History insomnia Medical History obesity Surgical History ganglion cyst removal 1996 Surgical History section 2003 Hospitalization History surgeries
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
--- OUTSIDE RECORDS SUMMARY | 2020-01-12 20:03 | XMS REPORT ---
Author Author Nani Smith Organization [facility] Address [address] [place] [address] Care Team Providers Care Chemical Supervisor Name Role Phone MARY Smith Unavailable PROBLEMS Type Condition ICD9-CM Code [id number] Code Onset Dates Condition S tatus SNOMED Code Problem Personal history of alcoholism F10.21 Active 332499209 Problem Fibromyalgia M79.7 Active 4036191 7 Problem Other chronic pain G89.29 Active 8 0875333 Problem Lumbago with sciatica, right side M54.41 Active [id number] Problem Insomnia G47.00 Active 594694492 Problem Obesity E66.9 Active 764734183 Problem Lumbago with sciatica, left side M54.42 Active 689537081 Problem Chronic pain syndrome G89.4 Active [id number] ALLERGIES No Information ENCOUNTERS Encounter Location Date Diagnosis [facility] [address] [id number] [address] [place] [phone] Aug, Fibromyalgia M79.7 and BMI 5 0.0-59.9, adult Z68.43 [facility] [id number] [place] [phone] Aug, [facility] [address] [id number] [address] [place] [phone] Aug, [facility] [address] [id number] [address] [place] [phone] Jul, [facility] [address] [id number] [place] [address] Jul, Insomnia G47.00 [facility] [address] [id number] [address] [place] [id number] Jul, [facility] [address] [id number] [address] [place] [address] Jul, [facility] [address] [address] Jul, [facility] [address] [address] Jul, Fibromyalgia M79.7 [facility] [address] [address] Jul, [facility] [address] [address] Jun, Chronic pain syndrome G89.4 and Fibromyalgia M79.7 [facility] [address] [address] Jun, Fibromyalgia M79.7 [facility] [address] [address] Jun, Bronchitis J40 ; Fibromyalgi a M79.7 ; Lumbago with sciatica, left side M54.42 ; Lumbago with sciatica, right side M54.41 ; Other chronic pain G89.29 and BMI 45.0-49.9, adult Z68.42 [facility] [address] [id number] [address] [place] [address] Jun, Influenza-like illness R69 [facility] [address] [id number] [place] [phone] Jun, [facility] [address] [address] Jun, Fibromyalgia M79.7 [facility] [address] [address] May, Fibromyalgia M79.7 [facility] [address] [id number] Apr, Insomnia G47.00 [facility] [address] [id number] [address] [place] [phone] Apr, [facility] [address] [facility] [id number] [address] [place] [phone] Apr, [facility] [address] [facility]] [id number] [address] [place] [phone] Apr, Fibromyalgia M79.7 [facility] [address] [facility] [id number] [address] [place] [phone] 16 Mar, 2017 Encounter for immunization Z 23 [facility] [address] [facility] [id number] [address] [place] [id number] 10 Mar, 2017 Visit for TB skin test Z11.1 [facility] [address] [facility] [id number] [address] [place] [phone] 04 Mar, 2017 Fibromyalgia M79.7 [facility] [address] [facility]] [id number] [address] [place] [phone] 12 Feb, 2017 Fibromyalgia M79.7 [facility] [address] [facility]] [id number] [address] [place] [phone] Feb, [facility] [address] [facility]] [id number] [address] [place] [phone] Feb, Fibromyalgia M79.7 [facility] [address] [facility]] [id number] [address] [place] [phone] Jan, Fibromyalgia M79.7 ; Obesity E66.9 ; Insomnia G47.00 and Chronic pain syndrome G89.4 [facility] [address] [id number] [address] [place] [phone] Jan, [facility] [address] [facility] [id number] [address] [place] [phone] Jan, [facility] [address] [facility]] [id number] [address] [place] [phone] Dec, [facility] [address] [facility] [id number] [address] [place] [phone] Dec, [facility] [address] [id number] [address] [place] [id number] Dec, [facility] [address] [facility]] [id number] [address] [place] [phone] Nov, Chronic pain syndrome G89.4 [facility] [address] [facility]] [id number] [address] [place] [address] October, Chronic pain syndrome G89.4 [facility] [address] [id number] [address] [place] [id number] October, Chronic pain syndrome G89.4 [facility] [address] [id number] [address] [place] [phone] October, [facility] [address] [facility]] [id number] [address] [place] [phone] October, Chronic pain syndrome G89.4 [facility] [address] [facility]] [id number] [address] [place] [address] October, Chronic pain syndrome G89.4 and Fibromyalgia M79.7 [facility] [address] [id number] [address] [place] [phone] October, Fibromyalgia M79.7 and Chron ic pain syndrome G89.4 [facility] [address] [facility]] [id number] [address] [place] [phone] Sep, Encounter for immunization Z 23 [facility] [address] [facility] [id number] [address] [place] [phone] Sep, [facility] [address] [facility]] [id number] [address] [place] [phone] Sep, [facility] [address] [facility]] [id number] [address] [place] [id number] Aug, Fibromyalgia M79.7 and Insom christo G47.00 [facility] [address] [facility] [id number] [address] [place] [phone] Aug, Obesity E66.9 ; Snoring R06. 83 ; Fibromyalgia M79.7 ; Insomnia G47.00 and Screening cholesterol level Z13.220 [facility] [id number] [place] [address] Aug, Fibromyalgia M79.7 [facility] [address] [id number] [address] [place] [id number] Jul, Obesity E66.9 ; Personal his tory of alcoholism F10.21 and Fibromyalgia M79.7 [facility] [address] [id number] [address] [place] [id number] Jul, [facility] [address] [address] Jun, Obesity E66.9 ; Chronic pain syndrome G89.4 ; Fibromyalgia M79.7 ; Insomnia G47.00 and Wellness examination Z00.00 [address] [address] [address] Jun, Personal history of alcoholi sm F10.21 and Chronic pain syndrome G89.4 [place] [id number] [place] [phone] Jun, [place] [address] [address] Jun, Fibromyalgia M79.7 [facility] [address] [id number] [address] [place] [phone] May, Fibromyalgia M79.7 [facility] [address] [id number] [address] [place] [phone] May, [facility] [id number] [place] [address] Apr, Obesity E66.9 ; Fibromyalgia M79.7 ; Insomnia G47.00 and Personal history of alcoholism F10.21 [facility] [address] [id number] [address] [place] [phone] Apr, [facility] [id number] [place] [phone] Apr, [facility] [address] [id number] [address] [place] [phone] Mar, [facility] [address] [id number] [address] [place] [phone] Mar, [facility] [address] [id number] [address] [place] [phone] Feb, [facility] [address] [id number] [address] [place] [id number] Jan, [facility] [address] [id number] [address] [place] [phone] Dec, Obesity E66.9 ; Fibromyalgia M79.7 ; Personal history of alcoholism F10.21 and Insomnia G47.00 [facility] [address] [id number] [address] [place] [phone] Dec, Chronic pain syndrome G89.4 [facility] [address] [id number] [address] [place] [phone] Dec, [facility] [address] [facility]] [id number] [address] [place] [phone] Dec, [facility] [address] [facility]] [id number] [address] [place] [phone] Nov, [facility] [address] [facility]] [id number] [address] [place] [id number] Nov, [facility] [address] [facility]] [id number] [address] [place] [address] Nov, Fibromyalgia M79.7 ; Obesity E66.9 ; Personal history of alcoholism F10.21 ; Insomnia G47.00 and Chronic pain syndrome G89.4 [facility] [address] [id number] [address] [place] [id number] 10 Nov, 2015 Fibromyalgia M79.7 [facility] [address] [facility] [id number] [address] [place] [phone] October, Fibromyalgia M79.7 [facility] [address] [facility]] [id number] [address] [place] [id number] October, Obesity E66.9 ; Fibromyalgia M79.7 ; Personal history of alcoholism F10.21 and Insomnia G47.00 [facility] [address] [facility]] [id number] [address] [place] [id number] Sep, [facility] [address] [facility]] [id number] [address] [place] [id number] Aug, Fibromyalgia M79.7 ; Obesity E66.9 ; Personal history of alcoholism F10.21 and Insomnia G47.00 [facility] [address] [facility] [id number] [address] [place] [phone] Aug, [facility] [address] [id number] [address] [place] [phone] Jul, [facility] [address] [id number] [address] [place] [phone] Jun, [facility] [address] [facility] [id number] [address] [place] [phone] Jun, [facility] [address] [id number] [address] [place] [phone] May, [facility] [address] [facility]] [id number] [address] [place] [address] May, Fibromyalgia M79.7 ; Obesity E66.9 and Insomnia G47.00 [facility] [address] [facility] [id number] [address] [place] [phone] May, [facility] [id number] [place] [address] May, Fibromyalgia M79.7 ; Persona l history of alcoholism F10.21 ; Insomnia G47.00 and Obesity E66.9 [facility] [address] [facility] [id number] [address] [place] [phone] Apr, [facility] [address] [id number] [address] [place] [phone] Apr, Fibromyalgia M79.7 ; Obesity E66.9 ; Insomnia G47.00 ; Personal history of alcoholism F10.21 and Frequent falls R29.6 [place] [id number] [place] [address] Apr, Obesity E66.9 ; Fibromyalgia M79.7 and Insomnia G47.00 [place] [id number] [place] [phone] Mar, [place] [id number] [place] [phone] Mar, [place] [id number] [place] [phone] Mar, [place] [address] [address] Mar, Obesity E66.9 ; Fibromyalgia M79.7 and Personal history of alcoholism F10.21 [place] [id number] [place] [phone] Feb, [place] [address] [address] Feb, Other malaise and fatigue 78 0.79 ; Abnormal weight gain 783.1 and Fibromyalgia 729.1 [place] [address] [id number] [address] [place] [phone] Jan, [place] [address] [id number] [address] [place] [phone] Dec, [place] [id number] [place] [address] Dec, Fibromyalgia 729.1 and Abnor mal weight gain 783.1 [place] [id number] [place] [phone] Dec, Unspecified myalgia and myos itis 729.1 ; Abnormal weight gain 783.1 and Fibromyalgia 729.1 [facility] [address] [id number] [address] [place] [phone] Nov, [facility] [address] [id number] [address] [place] [phone] Nov, Other malaise and fatigue 78 0.79 ; Unspecified myalgia and myositis 729.1 and Abnormal weight gain 783.1 [facility] [address] [id number] [address] [place] [phone] Nov, [facility] [address] [id number] [address] [place] [phone] Nov, [facility] [address] [id number] [address] [place] [phone] October, [facility] [address] [id number] [address] [place] [phone] October, Unspecified myalgia and myos itis 729.1 and Scabies 133.0 [facility] [address] [id number] [address] [place] [phone] October, [facility] [address] [id number] [address] [place] [phone] Sep, [facility] [address] [id number] [address] [place] [phone] Sep, [facility] [address] [id number] [address] [place] [phone] Aug, [facility] [address] [id number] [address] [place] [phone] Aug, [facility] [address] [id number] [address] [place] [phone] Aug, [facility] [address] [id number] [address] [place] [phone] Aug, [facility] [address] [id number] [address] [place] [address], [place] [address] 12 Aug, 2014 [facility] [address] [id number] [address] [place] [address], [place] [address] 12 Aug, 2014 [facility] [address] [id number] [address] [place] [address], [place] [address] Aug, [facility] [address] [id number] [address] [place] [address], [place] [address] 11 Aug, 2014 [facility] [address] [id number] [address] [place] [address], [place] [address] 10 Aug, 2014 [facility] [address] [id number] [address] [place] [address], [place] [address] 10 Aug, 2014 [facility] [address] [id number] [address] [place] [address], [place] [address] May, [facility] [address] [id number] [address] [place] [address], [place] [address] May, [facility] [address] [id number] [address] [place] [address], [place] [address] Mar, [facility] [address] [id number] [address] [place] [address], [place] [address] Mar, [facility] [address] [id number] [address] [place] [address], [place] [address] Feb, [facility] [address] [id number] [address] [place] [address], [place] [address] Feb, [facility] [address] [id number] [address] [place] [address], [place] [address] Feb, [facility] [address] [id number] [address] [place] [address], [place] [address] Feb, [facility] [address] [id number] [address] [place] [address], [place] [address] October, [facility] [address] [id number] [address] [place] [address], [place] [address] October, [facility] [address] [id number] [address] [place] [phone] October, [facility] [address] [id number] [address] [place] [id number] October, [facility] [address] [id number] [address] [place] [phone] Sep, [facility] [address] [id number] [address] [place] [phone] Sep, [facility] [address] [id number] [address] [place] [phone] Sep, [facility] [address] [id number] [address] [place] [phone] Sep, [facility] [address] [id number] [address] [place] [phone] Jul, [facility] [address] [id number] [address] [place] [phone] Jul, [facility] [address] [id number] [address] [place] [phone] Jun, [facility] [address] [id number] [address] [place] [id number] Jun, [facility] [address] [id number] [address] [place] [phone] May, [facility] [address] [id number] [address] [place] [id number] May, IMMUNIZATIONS No Known Immunizations SOCIAL HISTORY [...]
--- OUTSIDE RECORDS SUMMARY | 2020-01-12 20:03 | XMS REPORT ---
Author Author Nani MARLEY Organization [facility] Address [address] [place] [address] Care Team Providers Care [employer] Player Name Role Phone HUBER MARLEY Unavailable PROBLEMS Type Condition ICD9-CM Code CVX25-WQ Code Onset Dates Condition S tatus SNOMED Code Problem Personal history of alcoholism F10.21 Active 953903785 Problem Fibromyalgia M79.7 Active 9817177 7 Problem Other chronic pain G89.29 Active 8 6140750 Problem Lumbago with sciatica, right side M54.41 Active 017057118600322 Problem Insomnia G47.00 Active 425011168 Problem Obesity E66.9 Active 363877301 Problem Lumbago with sciatica, left side M54.42 Active 117090280 Problem Chronic pain syndrome G89.4 Active 101102231 ALLERGIES No Information ENCOUNTERS Encounter Location Date Diagnosis [facility] [address] [id number] [address] [place] [address] Aug, Fibromyalgia M79.7 and BMI 5 0.0-59.9, adult Z68.43 [facility] [address] [place] [address] Aug, [facility] [address] [id number] [address] [place] [address] Aug, [facility] [address] [place] [address] Jul, [facility] [address] [id number] [address] [place] [address] Jul, Insomnia G47.00 [facility] [address] [id number] [address] [place] [address] Jul, [facility] [address] [id number] [address] [place] [address] Jul, [facility] [address] [address] Jul, [facility] [address] [address] Jul, Fibromyalgia M79.7 [facility] [address] [address] Jul, [facility] [address] [address] Jun, Chronic pain syndrome G89.4 and Fibromyalgia M79.7 [facility] [address] [address] Jun, Fibromyalgia M79.7 [facility] [address] [address] Jun, Bronchitis J40 ; Fibromyalgi a M79.7 ; Lumbago with sciatica, left side M54.42 ; Lumbago with sciatica, right side M54.41 ; Other chronic pain G89.29 and BMI 45.0-49.9, adult Z68.42 [facility] [address] [id number] [address] [place] [address] Jun, Influenza-like illness R69 [facility] [address] [address] Jun, [facility] [address] [address] Jun, Fibromyalgia M79.7 [facility] [address] [address] May, Fibromyalgia M79.7 [facility] [address] [address] Apr, Insomnia G47.00 [facility] [address] [place] [address] Apr, [facility] [address] [facility] [id number] [address] [place] [address] Apr, [facility] [address] [facility] [id number] [address] [place] [address] Apr, Fibromyalgia M79.7 [facility] [address] [facility] [id number] [address] [place] [address] 16 Mar, 2017 Encounter for immunization Z 23 [facility] [address] [facility] [id number] [address] [place] [address] 10 Mar, 2017 Visit for TB skin test Z11.1 [facility] [address] [facility] [id number] [address] [place] [address] 04 Mar, 2017 Fibromyalgia M79.7 [facility] [address] [facility] [id number] [address] [place] [address] 12 Feb, 2017 Fibromyalgia M79.7 [facility] [address] [facility] [id number] [address] [place] [address] Feb, [facility] [address] [facility] [id number] [address] [place] [address] Feb, Fibromyalgia M79.7 [facility] [address] [facility] [id number] [address] [place] [address] Jan, Fibromyalgia M79.7 ; Obesity E66.9 ; Insomnia G47.00 and Chronic pain syndrome G89.4 [facility] [address] [facility] [id number] [address] [place] [address] Jan, [facility] [address] [facility] [id number] [address] [place] [address] Jan, [facility] [address] [facility] [id number] [address] [place] [address] Dec, [facility] [address] [facility] [id number] [address] [place] [address] Dec, [facility] [address] [facility] [id number] [address] [place] [address] Dec, [facility] [address] [facility] [id number] [address] [place] [address] Nov, Chronic pain syndrome G89.4 [facility] [address] [facility] [id number] [address] [place] [address] October, Chronic pain syndrome G89.4 [facility] [address] [id number] [address] [place] [address] October, Chronic pain syndrome G89.4 [facility] [address] [id number] [address] [place] [address] October, [facility] [address] [facility] [id number] [address] [place] [address] October, Chronic pain syndrome G89.4 [facility] [address] [facility] [id number] [address] [place] [address] October, Chronic pain syndrome G89.4 and Fibromyalgia M79.7 [facility] [address] [facility] [id number] [address] [place] [address] October, Fibromyalgia M79.7 and Chron ic pain syndrome G89.4 [facility] [address] [facility] [id number] [address] [place] [address] Sep, Encounter for immunization Z 23 [facility] [address] [facility] [id number] [address] [place] [address] Sep, [facility] [address] [facility] [id number] [address] [place] [address] Sep, [facility] [address] [facility] [id number] [address] [place] [address] Aug, Fibromyalgia M79.7 and Insom christo G47.00 [facility] [address] [facility] [id number] [address] [place] [address] Aug, Obesity E66.9 ; Snoring R06. 83 ; Fibromyalgia M79.7 ; Insomnia G47.00 and Screening cholesterol level Z13.220 [facility] [address] [facility] [id number] [address] [place] [address] Aug, Fibromyalgia M79.7 [facility] [address] [facility] [id number] [address] [place] [address] Jul, Obesity E66.9 ; Personal his tory of alcoholism F10.21 and Fibromyalgia M79.7 [facility] [address] [facility] [id number] [address] [place] [address] Jul, [facility] [address] [facility] [id number] [address] [place] [address] Jun, Obesity E66.9 ; Chronic pain syndrome G89.4 ; Fibromyalgia M79.7 ; Insomnia G47.00 and Wellness examination Z00.00 [facility] [address] [facility] [id number] [address] [place] [address] Jun, Personal history of alcoholi sm F10.21 and Chronic pain syndrome G89.4 [facility] [address] [facility] [id number] [address] [place] [address] Jun, [facility] [address] [facility] [id number] [address] [place] [address] Jun, Fibromyalgia M79.7 [facility] [address] [facility] [id number] [address] [place] [address] May, Fibromyalgia M79.7 [facility] [address] [facility] [id number] [address] [place] [address] May, [facility] [address] [facility] [id number] [address] [place] [address] Apr, Obesity E66.9 ; Fibromyalgia M79.7 ; Insomnia G47.00 and Personal history of alcoholism F10.21 [facility] [address] [facility] [id number] [address] [place] [address] Apr, [facility] [address] [facility] [id number] [address] [place] [address] Apr, [facility] [address] [id number] [address] [place] [address] Mar, [facility] [address] [id number] [address] [place] [address] Mar, [facility] [address] [facility] [id number] [address] [place] [address] Feb, [facility] [address] [id number] [address] [place] [address] Jan, [facility] [address] [id number] [address] [place] [address] Dec, Obesity E66.9 ; Fibromyalgia M79.7 ; Personal history of alcoholism F10.21 and Insomnia G47.00 [facility] [address] [facility] [id number] [address] [place] [address] Dec, Chronic pain syndrome G89.4 [facility] [address] [id number] [address] [place] [address] Dec, [facility] [address] [facility] [id number] [address] [place] [address] Dec, [facility] [address] [facility] [id number] [address] [place] [address] Nov, [facility] [address] [facility] [id number] [address] [place] [address] Nov, [facility] [address] [facility] [id number] [address] [place] [address] Nov, Fibromyalgia M79.7 ; Obesity E66.9 ; Personal history of alcoholism F10.21 ; Insomnia G47.00 and Chronic pain syndrome G89.4 [facility] [address] [facility] [id number] [address] [place] [address] Nov, Fibromyalgia M79.7 [facility] [address] [facility] [id number] [address] [place] [address] October, Fibromyalgia M79.7 [facility] [address] [facility] [id number] [address] [place] [address] October, Obesity E66.9 ; Fibromyalgia M79.7 ; Personal history of alcoholism F10.21 and Insomnia G47.00 [facility] [address] [facility] [id number] [address] [place] [address] Sep, [facility] [address] [facility] [id number] [address] [place] [address] Aug, Fibromyalgia M79.7 ; Obesity E66.9 ; Personal history of alcoholism F10.21 and Insomnia G47.00 [facility] [address] [facility] [id number] [address] [place] [address] Aug, [facility] [address] [facility] [id number] [address] [place] [address] Jul, [facility] [address] [facility] [id number] [address] [place] [address] Jun, [facility] [address] [facility] [id number] [address] [place] [address] Jun, [facility] [address] [facility] [id number] [address] [place] [address] May, [facility] [address] [facility] [id number] [address] [place] [address] May, Fibromyalgia M79.7 ; Obesity E66.9 and Insomnia G47.00 [facility] [address] [facility] [id number] [address] [place] [address] May, [facility] [address] [facility] [id number] [address] [place] [address] May, Fibromyalgia M79.7 ; Persona l history of alcoholism F10.21 ; Insomnia G47.00 and Obesity E66.9 [facility] [address] [facility] [id number] [address] [place] [address] Apr, [facility] [address] [address] Apr, Fibromyalgia M79.7 ; Obesity E66.9 ; Insomnia G47.00 ; Personal history of alcoholism F10.21 and Frequent falls R29.6 [id number] [place] [address] Apr, Obesity E66.9 ; Fibromyalgia M79.7 and Insomnia G47.00 [address] [address] Mar, [address] [address] Mar, [address] [address] Mar, [address] [address] Mar, Obesity E66.9 ; Fibromyalgia M79.7 and Personal history of alcoholism F10.21 [address] [place] [address] [address] Feb, [address] [place] [address] [address] Feb, Other malaise and fatigue 78 0.79 ; Abnormal weight gain 783.1 and Fibromyalgia 729.1 [address] [address] Jan, [address] [place] [address] [address] Dec, [address] [place] [address] [address] Dec, Fibromyalgia 729.1 and Abnor mal weight gain 783.1 [address] [id number] [place] [address] Dec, Unspecified myalgia and myos itis 729.1 ; Abnormal weight gain 783.1 and Fibromyalgia 729.1 [facility] [address] [id number] [address] [place] [address] Nov, [facility] [address] [id number] [address] [place] [address] 10 Nov, 2014 Other malaise and fatigue 78 0.79 ; Unspecified myalgia and myositis 729.1 and Abnormal weight gain 783.1 [facility] [address] [id number] [address] [place] [address] Nov, [facility] [address] [id number] [address] [place] [address] Nov, [facility] [address] [id number] [address] [place] [address] October, [facility] [address] [id number] [address] [place] [address] October, Unspecified myalgia and myos itis 729.1 and Scabies 133.0 [facility] [address] [id number] [address] [place] [address] October, [facility] [address] [id number] [address] [place] [address] Sep, [facility] [address] [id number] [address] [place] [address] Sep, [facility] [address] [id number] [address] [place] [address] Aug, [facility] [address] [id number] [address] [place] [address] Aug, [facility] [address] [id number] [address] [place] [address] Aug, [facility] [address] [id number] [address] [place] [address] Aug, [facility] [address] [id number] [address] [place] [address] Aug, [facility] [address] [id number] [address] [place] [address], [place] [address] 12 Aug, 2014 [facility] [address] [id number] [address] [place] [address], [place] [address] Aug, [facility] [address] [id number] [address] [place] [address], [place] [address] Aug, [facility] [address] [id number] [address] [place] [address], [place] [address] Aug, [facility] [address] [id number] [address] [place] [address], [place] [address] Aug, [facility] [address] [id number] [address] [place] [address], [place] [address] May, [facility] [address] [id number] [address] [place] [address], [place] [address] May, [facility] [address] [id number] [address] [place] [address], [place] [address] Mar, [facility] [address] [id number] [address] [place] [address], [place] [address] Mar, [facility] [address] [id number] [address] [place] [address], [place] [address] Feb, [facility] [address] [id number] [address] [place] [address], [place] [address] Feb, [facility] [address] [id number] [address] [place] [address], [place] [address] Feb, [facility] [address] [id number] [address] [place] [address], [place] [address] Feb, [facility] [address] [id number] [address] [place] [address], [place] [address] October, [facility] [address] [id number] [address] [place] [address], [place] [address] October, [facility] [address] [id number] [address] [place] [address] October, [facility] [address] [id number] [address] [place] [address] October, [facility] [address] [id number] [address] [place] [address] Sep, [facility] [address] [id number] [address] [place] [address] Sep, [facility] [address] [id number] [address] [place] [address] Sep, [facility] [address] [id number] [address] [place] [address] Sep, [facility] [address] [id number] [address] [place] [address] Jul, [facility] [address] [id number] [address] [place] [address] Jul, [facility] [address] [id number] [address] [place] [address] Jun, [facility] [address] [id number] [address] [place] [address] Jun, [facility] [address] [id number] [address] [place] [address] May, [facility] [address] [id number] [address] [place] [address] May, IMMUNIZATIONS No Known Immunizations SOCIAL HISTORY Never Assessed REASON FOR VISIT Controlled Med Refill PLAN OF CARE VITAL SIGNS MEDICATIONS Medication Instructions Dosage Frequency Start Date End Date Duration S tatus Ambien 10 mg Orally Once a day 1 tablet at bedtime as needed 24h Active RESULTS No Results PROCEDURES No Known procedures INSTRUCTIONS MEDICATIONS ADMINISTERED No Known Medications MEDICAL (GENERAL) HISTORY Type Description Date Medical History fibromyalgia Medical History insomnia Medical History obesity Surgical History ganglion cyst removal 1996 Surgical History section 2004 Hospitalization History surgeries
--- OUTSIDE RECORDS SUMMARY | 2020-01-12 20:04 | XMS REPORT ---
Author Author Nani MARLEY Organization [facility] Address [address] [place] [address] Care Team Providers Care Electrical Technician Name Role Phone HUBER MARLEY Unavailable PROBLEMS Type Condition ICD9-CM Code PPU06-QO Code Onset Dates Condition S tatus SNOMED Code Problem Personal history of alcoholism F10.21 Active 486893621 Problem Fibromyalgia M79.7 Active 2554456 7 Problem Other chronic pain G89.29 Active 8 9847536 Problem Lumbago with sciatica, right side M54.41 Active [id number] Problem Insomnia G47.00 Active 923795418 Problem Obesity E66.9 Active 032694861 Problem Lumbago with sciatica, left side M54.42 Active 080409346 Problem Chronic pain syndrome G89.4 Active [id number] ALLERGIES No Information ENCOUNTERS Encounter Location Date Diagnosis [facility] [address] [id number] [address] [place] [address] Aug, Fibromyalgia M79.7 and BMI 5 0.0-59.9, adult Z68.43 [facility] [id number] [place] [address] Aug, [facility] [address] [id number] [address] [place] [address] Aug, [facility] [id number] [place] [address] Jul, [facility] [address] [id number] [place] [address] Jul, Insomnia G47.00 [facility] [address] [id number] [address] [place] [address] Jul, [facility] [address] [id number] [place] [address] Jul, [facility] [address] [address] Jul, [facility] [address] [address] Jul, Fibromyalgia M79.7 [facility] [address] [address] Jul, [facility] [address] [address] Jun, Chronic pain syndrome G89.4 and Fibromyalgia M79.7 [facility] [address] [address] Jun, Fibromyalgia M79.7 [facility] [address] [address] Jun, Bronchitis J40 ; Fibromyalgi a M79.7 ; Lumbago with sciatica, left side M54.42 ; Lumbago with sciatica, right side M54.41 ; Other chronic pain G89.29 and BMI 45.0-49.9, adult Z68.42 [facility] [address] [id number] [place] [address] Jun, Influenza-like illness R69 [facility] [address] [address] Jun, [facility] [address] [id number] Jun, Fibromyalgia M79.7 [facility] [address] [address] May, Fibromyalgia M79.7 [facility] [address] [address] Apr, Insomnia G47.00 [facility] [address] [place] [address] Apr, [facility] [address] [facility] [id number] [address] [place] [address] Apr, [facility] [address] [facility] [id number] [address] [place] [address] Apr, Fibromyalgia M79.7 [facility] [address] [facility] [id number] [address] [place] [address] 16 Mar, 2017 Encounter for immunization Z 23 [facility] [address] [facility] [id number] [address] [place] [address] 10 Mar, 2017 Visit for TB skin test Z11.1 [facility] [address] [facility] [id number] [address] [place] [address] 04 Mar, 2017 Fibromyalgia M79.7 [facility] [address] [facility] [id number] [address] [place] [address] 12 Feb, 2017 Fibromyalgia M79.7 [facility] [address] [facility] [id number] [address] [place] [address] Feb, [facility] [address] [facility] [id number] [address] [place] [address] Feb, Fibromyalgia M79.7 [facility] [address] [facility] [id number] [address] [place] [address] Jan, Fibromyalgia M79.7 ; Obesity E66.9 ; Insomnia G47.00 and Chronic pain syndrome G89.4 [facility] [address] [facility] [id number] [address] [place] [address] Jan, [facility] [address] [facility] [id number] [address] [place] [address] Jan, [facility] [address] [facility] [id number] [address] [place] [address] Dec, [facility] [address] [facility] [id number] [address] [place] [address] Dec, [facility] [address] [facility] [id number] [address] [place] [address] Dec, [facility] [address] [facility] [id number] [address] [place] [address] Nov, Chronic pain syndrome G89.4 [facility] [address] [facility] [id number] [address] [place] [address] October, Chronic pain syndrome G89.4 [facility] [address] [id number] [address] [place] [address] October, Chronic pain syndrome G89.4 [facility] [address] [id number] [address] [place] [address] October, [facility] [address] [facility] [id number] [address] [place] [address] October, Chronic pain syndrome G89.4 [facility] [address] [facility] [id number] [address] [place] [address] October, Chronic pain syndrome G89.4 and Fibromyalgia M79.7 [facility] [address] [facility] [id number] [address] [place] [address] October, Fibromyalgia M79.7 and Chron ic pain syndrome G89.4 [facility] [address] [facility] [id number] [address] [place] [address] Sep, Encounter for immunization Z 23 [facility] [address] [facility] [id number] [address] [place] [address] Sep, [facility] [address] [facility] [id number] [address] [place] [address] Sep, [facility] [address] [facility] [id number] [address] [place] [address] Aug, Fibromyalgia M79.7 and Insom christo G47.00 [facility] [address] [facility] [id number] [address] [place] [address] Aug, Obesity E66.9 ; Snoring R06. 83 ; Fibromyalgia M79.7 ; Insomnia G47.00 and Screening cholesterol level Z13.220 [facility] [address] [facility] [id number] [address] [place] [address] Aug, Fibromyalgia M79.7 [facility] [address] [facility] [id number] [address] [place] [address] Jul, Obesity E66.9 ; Personal his tory of alcoholism F10.21 and Fibromyalgia M79.7 [facility] [address] [facility] [id number] [address] [place] [address] Jul, [facility] [address] [facility] [id number] [address] [place] [address] Jun, Obesity E66.9 ; Chronic pain syndrome G89.4 ; Fibromyalgia M79.7 ; Insomnia G47.00 and Wellness examination Z00.00 [facility] [address] [facility] [id number] [address] [place] [address] Jun, Personal history of alcoholi sm F10.21 and Chronic pain syndrome G89.4 [facility] [address] [facility] [id number] [address] [place] [address] Jun, [facility] [address] [facility] [id number] [address] [place] [address] Jun, Fibromyalgia M79.7 [facility] [address] [facility] [id number] [address] [place] [address] May, Fibromyalgia M79.7 [facility] [address] [facility] [id number] [address] [place] [address] May, [facility] [address] [facility] [id number] [address] [place] [address] Apr, Obesity E66.9 ; Fibromyalgia M79.7 ; Insomnia G47.00 and Personal history of alcoholism F10.21 [facility] [address] [facility] [id number] [address] [place] [address] Apr, [facility] [address] [facility] [id number] [address] [place] [address] Apr, [facility] [address] [id number] [address] [place] [address] Mar, [facility] [address] [id number] [address] [place] [address] Mar, [facility] [address] [facility] [id number] [address] [place] [address] Feb, [facility] [address] [id number] [address] [place] [address] Jan, [facility] [address] [id number] [address] [place] [address] Dec, Obesity E66.9 ; Fibromyalgia M79.7 ; Personal history of alcoholism F10.21 and Insomnia G47.00 [facility] [address] [facility] [id number] [address] [place] [address] Dec, Chronic pain syndrome G89.4 [facility] [address] [id number] [address] [place] [address] Dec, [facility] [address] [facility] [id number] [address] [place] [address] Dec, [facility] [address] [facility] [id number] [address] [place] [address] Nov, [facility] [address] [facility] [id number] [address] [place] [address] Nov, [facility] [address] [facility] [id number] [address] [place] [address] Nov, Fibromyalgia M79.7 ; Obesity E66.9 ; Personal history of alcoholism F10.21 ; Insomnia G47.00 and Chronic pain syndrome G89.4 [facility] [address] [facility] [id number] [address] [place] [address] Nov, Fibromyalgia M79.7 [facility] [address] [facility] [id number] [address] [place] [address] October, Fibromyalgia M79.7 [facility] [address] [facility] [id number] [address] [place] [address] October, Obesity E66.9 ; Fibromyalgia M79.7 ; Personal history of alcoholism F10.21 and Insomnia G47.00 [facility] [address] [facility] [id number] [address] [place] [address] Sep, [facility] [address] [facility] [id number] [address] [place] [address] Aug, Fibromyalgia M79.7 ; Obesity E66.9 ; Personal history of alcoholism F10.21 and Insomnia G47.00 [facility] [address] [facility] [id number] [address] [place] [address] Aug, [facility] [address] [facility] [id number] [address] [place] [address] Jul, [facility] [address] [facility] [id number] [address] [place] [address] Jun, [facility] [address] [facility] [id number] [address] [place] [address] Jun, [facility] [address] [facility] [id number] [address] [place] [address] May, [facility] [address] [facility] [id number] [address] [place] [address] May, Fibromyalgia M79.7 ; Obesity E66.9 and Insomnia G47.00 [facility] [address] [facility] [facility] [id number] [address] [place] [address] May, [facility] [address] [facility] [id number] [address] [place] [address] May, Fibromyalgia M79.7 ; Persona l history of alcoholism F10.21 ; Insomnia G47.00 and Obesity E66.9 [facility] [address] [facility] [id number] [address] [place] [address] Apr, [facility] [address] [address] Apr, Fibromyalgia M79.7 ; Obesity E66.9 ; Insomnia G47.00 ; Personal history of alcoholism F10.21 and Frequent falls R29.6 [place] [id number] [place] [address] Apr, Obesity E66.9 ; Fibromyalgia M79.7 and Insomnia G47.00 [place] [address] [address] Mar, [place] [address] [address] Mar, [place] [address] [address] Mar, [place] [address] [address] Mar, Obesity E66.9 ; Fibromyalgia M79.7 and Personal history of alcoholism F10.21 [place] [address] [address] Feb, [place] [address] [address] Feb, Other malaise and fatigue 78 0.79 ; Abnormal weight gain 783.1 and Fibromyalgia 729.1 [place] [address] [address] Jan, [place] [address] [address] Dec, [place] [address] [address] Dec, Fibromyalgia 729.1 and Abnor mal weight gain 783.1 [place] [id number] [place] [address] Dec, Unspecified myalgia and myos itis 729.1 ; Abnormal weight gain 783.1 and Fibromyalgia 729.1 [facility] [address] [id number] [address] [place] [address] Nov, [facility] [address] [id number] [address] [place] [address] 10 Nov, 2014 Other malaise and fatigue 78 0.79 ; Unspecified myalgia and myositis 729.1 and Abnormal weight gain 783.1 [facility] [address] [id number] [address] [place] [address] Nov, [facility] [address] [id number] [address] [place] [address] Nov, [facility] [address] [id number] [address] [place] [address] October, [facility] [address] [id number] [address] [place] [address] October, Unspecified myalgia and myos itis 729.1 and Scabies 133.0 [facility] [address] [id number] [address] [place] [address] October, [facility] [address] [id number] [address] [place] [address] Sep, [facility] [address] [id number] [address] [place] [address] Sep, [facility] [address] [id number] [address] [place] [address] Aug, [facility] [address] [id number] [address] [place] [address] Aug, [facility] [address] [id number] [address] [place] [address] Aug, [facility] [address] [id number] [address] [place] [address] Aug, [facility] [address] [id number] [address] [place] [address] Aug, [facility] [address] [id number] [address] [place] [address], [place] [address] 12 Aug, 2014 [facility] [address] [id number] [address] [place] [address], [place] [address] Aug, [facility] [address] [id number] [address] [place] [address], [place] [address] Aug, [facility] [address] [id number] [address] [place] [address], [place] [address] Aug, [facility] [address] [id number] [address] [place] [address], [place] [address] Aug, [facility] [address] [id number] [address] [place] [address], [place] [address] May, [facility] [address] [id number] [address] [place] [address], [place] [address] May, [facility] [address] [id number] [address] [place] [address], [place] [address] Mar, [facility] [address] [id number] [address] [place] [address], [place] [address] Mar, [facility] [address] [id number] [address] [place] [address], [place] [address] Feb, [facility] [address] [id number] [address] [place] [address], [place] [address] Feb, [facility] [address] [id number] [address] [place] [address], [place] [address] Feb, [facility] [address] [id number] [address] [place] [address], [place] [address] Feb, [facility] [address] [id number] [address] [place] [address], [place] [address] October, [facility] [address] [id number] [address] [place] [address], [place] [address] October, [facility] [address] [id number] [address] [place] [address] October, [facility] [address] [id number] [address] [place] [address] October, [facility] [address] [id number] [address] [place] [address] Sep, [facility] [address] [id number] [address] [place] [address] Sep, [facility] [address] [id number] [address] [place] [address] Sep, [facility] [address] [id number] [address] [place] [address] Sep, [facility] [address] [id number] [address] [place] [address] Jul, [facility] [address] [id number] [address] [place] [address] Jul, [facility] [address] [id number] [address] [place] [address] Jun, [facility] [address] [id number] [address] [place] [address] Jun, [facility] [address] [id number] [address] [place] [address] May, [facility] [address] [id number] [address] [place] [address] May, IMMUNIZATIONS No Known Immunizations SOCIAL HISTORY Never Assessed REASON FOR VISIT Vicoprofen 04/21 PLAN OF CARE VITAL SIGNS MEDICATIONS Medication Instructions Dosage Frequency Start Date End Date Duration S tatus Hydrocodone-Ibuprofen 7.5-200 MG Orally 3 times a day 1 tablet as n eeded 8h Apr, 28 days Active RESULTS No Results PROCEDURES No Known procedures INSTRUCTIONS MEDICATIONS ADMINISTERED No Known Medications MEDICAL (GENERAL) HISTORY Type Description Date Medical History fibromyalgia Medical History insomnia Medical History obesity Surgical History ganglion cyst removal 1996 Surgical History section 2003 Hospitalization History surgeries
--- OUTSIDE RECORDS SUMMARY | 2020-01-12 20:04 | XMS REPORT ---
Author Author Nani COX Organization [facility] Address [address] [place] [address] Care Team Providers Care Supply Chain Development Manager Name Role Phone CARSON COX Unavailable PROBLEMS Type Condition ICD9-CM Code OLX21-VT Code Onset Dates Condition S tatus SNOMED Code Problem Personal history of alcoholism F10.21 Active 880194855 Problem Fibromyalgia M79.7 Active 1834836 7 Problem Other chronic pain G89.29 Active 8 0700020 Problem Lumbago with sciatica, right side M54.41 Active 555904931132720 Problem Insomnia G47.00 Active 807409811 Problem Obesity E66.9 Active 658235851 Problem Lumbago with sciatica, left side M54.42 Active 507711655 Problem Chronic pain syndrome G89.4 Active 764193050 ALLERGIES No Information ENCOUNTERS Encounter Location Date Diagnosis [facility] [address] [facility] [id number] [address] [place] [phone] Aug, Fibromyalgia M79.7 and BMI 5 0.0-59.9, adult Z68.43 [facility] [address] [place] [id number] [address] [place] [id number] Aug, [facility] [address] [facility] [id number] [address] [place] [address] Aug, [facility] [address] [place] [id number] [address] [place] [phone] Jul, [facility] [address] [place] [id number] [address] [place] [address] Jul, Insomnia G47.00 [facility] [address] [place] [id number] [address] [place] [address] Jul, [facility] [address] [place] [id number] [address] [place] [address] Jul, [facility] [address] [address] Jul, [facility] [address] [address] Jul, Fibromyalgia M79.7 [facility] [address] [address] Jul, [facility] [address] [address] Jun, Chronic pain syndrome G89.4 and Fibromyalgia M79.7 [facility] [address] [address] Jun, Fibromyalgia M79.7 [facility] [address] [address] Jun, Bronchitis J40 ; Fibromyalgi a M79.7 ; Lumbago with sciatica, left side M54.42 ; Lumbago with sciatica, right side M54.41 ; Other chronic pain G89.29 and BMI 45.0-49.9, adult Z68.42 [facility] [address] [place] [id number] [address] [place] [address] Jun, Influenza-like illness R69 [facility] [address] [address] Jun, [facility] [address] [address] Jun, Fibromyalgia M79.7 [facility] [address] [address] May, Fibromyalgia M79.7 [facility] [address] [address] Apr, Insomnia G47.00 [facility] [address] [address] Apr, [facility] [address] [facility] [id number] [address] [place] [address] Apr, [facility] [address] [facility] [id number] [address] [place] [address] Apr, Fibromyalgia M79.7 [facility] [address] [facility] [id number] [address] [place] [id number] 16 Mar, 2017 Encounter for immunization Z 23 [facility] [address] [facility] [id number] [address] [place] [id number] 10 Mar, 2017 Visit for TB skin test Z11.1 [facility] [address] [facility] [id number] [address] [place] [address] Mar, Fibromyalgia M79.7 [facility] [address] [facility] [id number] [address] [place] [id number] 12 Feb, 2017 Fibromyalgia M79.7 [facility] [address] [facility] [id number] [address] [place] [id number] Feb, [facility] [address] [facility] [id number] [address] [place] [address] Feb, Fibromyalgia M79.7 [facility] [address] [facility] [id number] [address] [place] [address] Jan, Fibromyalgia M79.7 ; Obesity E66.9 ; Insomnia G47.00 and Chronic pain syndrome G89.4 [facility] [address] [facility] [id number] [address] [place] [phone] Jan, [facility] [address] [facility] [id number] [address] [place] [address] Jan, [facility] [address] [facility] [id number] [address] [place] [phone] Dec, [facility] [address] [facility] [id number] [address] [place] [phone] Dec, [facility] [address] [facility] [id number] [address] [place] [address] Dec, [facility] [address] [facility] [id number] [address] [place] [phone] Nov, Chronic pain syndrome G89.4 [facility] [address] [facility] [id number] [address] [place] [address] October, Chronic pain syndrome G89.4 [facility] [address] [facility] [id number] [address] [place] [address] October, Chronic pain syndrome G89.4 [facility] [address] [facility] [id number] [address] [place] [address] October, [facility] [address] [facility] [id number] [address] [place] [address] October, Chronic pain syndrome G89.4 [facility] [address] [facility] [id number] [address] [place] [id number] October, Chronic pain syndrome G89.4 and Fibromyalgia M79.7 [facility] [address] [facility] [id number] [address] [place] [address] October, Fibromyalgia M79.7 and Chron ic pain syndrome G89.4 [facility] [address] [facility] [id number] [address] [place] [address] Sep, Encounter for immunization Z 23 [facility] [address] [facility] [id number] [address] [place] [phone] Sep, [facility] [address] [facility] [id number] [address] [place] [id number] Sep, [facility] [address] [facility] [id number] [address] [place] [address] Aug, Fibromyalgia M79.7 and Insom christo G47.00 [facility] [address] [facility] [id number] [address] [place] [address] Aug, Obesity E66.9 ; Snoring R06. 83 ; Fibromyalgia M79.7 ; Insomnia G47.00 and Screening cholesterol level Z13.220 [facility] [address] [facility] [id number] [address] [place] [address] Aug, Fibromyalgia M79.7 [facility] [address] [facility] [id number] [address] [place] [address] Jul, Obesity E66.9 ; Personal his tory of alcoholism F10.21 and Fibromyalgia M79.7 [facility] [address] [facility] [id number] [address] [place] [phone] Jul, [facility] [address] [facility] [id number] [address] [place] [address] Jun, Obesity E66.9 ; Chronic pain syndrome G89.4 ; Fibromyalgia M79.7 ; Insomnia G47.00 and Wellness examination Z00.00 [facility] [address] [facility] [id number] [address] [place] [phone] Jun, Personal history of alcoholi sm F10.21 and Chronic pain syndrome G89.4 [facility] [address] [facility] [id number] [address] [place] [phone] Jun, [facility] [address] [facility] [id number] [address] [place] [address] Jun, Fibromyalgia M79.7 [facility] [address] [facility] [id number] [address] [place] [address] May, Fibromyalgia M79.7 [facility] [address] [facility] [id number] [address] [place] [id number] May, [facility] [address] [facility] [id number] [address] [place] [address] Apr, Obesity E66.9 ; Fibromyalgia M79.7 ; Insomnia G47.00 and Personal history of alcoholism F10.21 [facility] [address] [facility] [id number] [address] [place] [address] Apr, [facility] [address] [facility] [id number] [address] [place] [phone] Apr, [facility] [address] [id number] [address] [place] [phone] Mar, [facility] [address] [id number] [address] [place] [phone] Mar, [facility] [address] [id number] [address] [place] [phone] Feb, [facility] [address] [id number] [address] [place] [phone] Jan, [facility] [address] [id number] [address] [place] [id number] Dec, Obesity E66.9 ; Fibromyalgia M79.7 ; Personal history of alcoholism F10.21 and Insomnia G47.00 [facility] [address] [id number] [address] [place] [id number] Dec, Chronic pain syndrome G89.4 [facility] [address] [id number] [address] [place] [id number] Dec, [facility] [address] [id number] [address] [place] [phone] Dec, [facility] [address] [id number] [address] [place] [phone] Nov, [facility] [address] [id number] [address] [place] [id number] Nov, [facility] [address] [id number] [address] [place] [address] Nov, Fibromyalgia M79.7 ; Obesity E66.9 ; Personal history of alcoholism F10.21 ; Insomnia G47.00 and Chronic pain syndrome G89.4 [facility] [address] [id number] [address] [place] [phone] Nov, Fibromyalgia M79.7 [facility] [address] [facility] [id number] [address] [place] [phone] 27 May, 2016 Fibromyalgia M79.7 [facility] [address] [facility] [id number] [address] [place] [address] October, Obesity E66.9 ; Fibromyalgia M79.7 ; Personal history of alcoholism F10.21 and Insomnia G47.00 [facility] [address] [facility] [id number] [address] [place] [address] Sep, [facility] [address] [facility] [id number] [address] [place] [address] Aug, Fibromyalgia M79.7 ; Obesity E66.9 ; Personal history of alcoholism F10.21 and Insomnia G47.00 [facility] [address] [facility] [id number] [address] [place] [phone] Aug, [facility] [address] [facility] [id number] [address] [place] [phone] Jul, [facility] [address] [facility] [id number] [address] [place] [phone] Jun, [facility] [address] [facility] [id number] [address] [place] [phone] Jun, [facility] [address] [facility] [id number] [address] [place] [id number] May, [facility] [address] [facility] [id number] [address] [place] [address] May, Fibromyalgia M79.7 ; Obesity E66.9 and Insomnia G47.00 [facility] [address] [facility] [id number] [address] [place] [phone] May, [facility] [address] [facility] [id number] [address] [place] [address] May, Fibromyalgia M79.7 ; Persona l history of alcoholism F10.21 ; Insomnia G47.00 and Obesity E66.9 [facility] [address] [facility] [id number] [address] [place] [id number] Apr, [facility] [address] [address] Apr, Fibromyalgia M79.7 ; Obesity E66.9 ; Insomnia G47.00 ; Personal history of alcoholism F10.21 and Frequent falls R29.6 [place] [address] [address] Apr, Obesity E66.9 ; Fibromyalgia M79.7 and Insomnia G47.00 [place] [address] [address] Mar, [place] [address] [address] Mar, [place] [address] [address] Mar, [place] [address] [address] Mar, Obesity E66.9 ; Fibromyalgia M79.7 and Personal history of alcoholism F10.21 [place] [address] [id number] Feb, [place] [address] [address] Feb, Other malaise and fatigue 78 0.79 ; Abnormal weight gain 783.1 and Fibromyalgia 729.1 [place] [address] [address] Jan, [place] [address] [address] Dec, [place] [address] [address] Dec, Fibromyalgia 729.1 and Abnor mal weight gain 783.1 [place] [address] [place] [id number] [place] [address] Dec, Unspecified myalgia and myos itis 729.1 ; Abnormal weight gain 783.1 and Fibromyalgia 729.1 [facility] [address] [id number] [address] [place] [id number] 11 Nov, 2014 [facility] [address] [id number] [address] [place] [phone] 10 Nov, 2014 Other malaise and fatigue 78 0.79 ; Unspecified myalgia and myositis 729.1 and Abnormal weight gain 783.1 [facility] [address] [id number] [address] [place] [phone] Nov, [facility] [address] [id number] [address] [place] [phone] Nov, [facility] [address] [id number] [address] [place] [id number] October, [facility] [address] [facility] [id number] [address] [place] [id number] October, Unspecified myalgia and myos itis 729.1 and Scabies 133.0 [facility] [address] [id number] [address] [place] [phone] October, [facility] [address] [id number] [address] [place] [phone] Sep, [facility] [address] [facility] [id number] [address] [place] [phone] Sep, [facility] [address] [id number] [address] [place] [id number] Aug, [facility] [address] [id number] [address] [place] [phone] Aug, [facility] [address] [id number] [address] [place] [phone] Aug, [facility] [address] [facility] [id number] [address] [place] [phone] Aug, [facility] [address] [facility] [id number] [address] [place] [phone] 12 Aug, 2014 [facility] [address] [id number] [address] [place] [address], [place] [address] 12 Aug, 2014 [facility] [address] [id number] [address] [place] [address], [place] [address] Aug, [facility] [address] [id number] [address] [place] [address], [place] [address] 11 Aug, 2014 [facility] [address] [id number] [address] [place] [address], [place] [address] 10 Aug, 2014 [facility] [address] [id number] [address] [place] [address], [place] [address] 10 Aug, 2014 [facility] [address] [id number] [address] [place] [address], [place] [address] May, [facility] [address] [id number] [address] [place] [address], [place] [address] May, [facility] [address] [id number] [address] [place] [address], [place] [address] Mar, [facility] [address] [id number] [address] [place] [address], [place] [address] Mar, [facility] [address] [id number] [address] [place] [address], [place] [address] Feb, [facility] [address] [id number] [address] [place] [address], [place] [address] Feb, [facility] [address] [id number] [address] [place] [address], [place] [address] Feb, [facility] [address] [id number] [address] [place] [address], [place] [address] Feb, [facility] [address] [id number] [address] [place] [address], [place] [address] October, [facility] [address] [id number] [address] [place] [address], [place] [address] October, [facility] [address] [id number] [address] [place] [address] October, [facility] [address] [id number] [address] [place] [phone] October, [facility] [address] [id number] [address] [place] [address] Sep, [facility] [address] [id number] [address] [place] [phone] Sep, [facility] [address] [id number] [address] [place] [address] Sep, [facility] [address] [id number] [address] [place] [phone] Sep, [facility] [address] [id number] [address] [place] [address] Jul, [facility] [address] [id number] [address] [place] [phone] Jul, [facility] [address] [id number] [address] [place] [phone] Jun, [facility] [address] [id number] [address] [place] [id number] Jun, [facility] [address] [id number] [address] [place] [phone] May, [facility] [address] [id number] [address] [place] [id number] May, IMMUNIZATIONS No Known Immunizations SOCIAL HISTORY Never Assessed REASON FOR VISIT vicoprofen 1/3 PLAN OF CARE VITAL SIGNS MEDICATIONS Medication Instructions Dosage Frequency Start Date End Date Duration S tatus Hydrocodone-Ibuprofen 7.5-200 MG Orally 3 times a day 1 tablet as n eeded 8h Jun, 28 days Active RESULTS No Results PROCEDURES No Known procedures INSTRUCTIONS MEDICATIONS ADMINISTERED No Known Medications MEDICAL (GENERAL) HISTORY Type Description Date Medical History fibromyalgia Medical History insomnia Medical History obesity Surgical History ganglion cyst removal 1996 Surgical History section 2003 Hospitalization History surgeries
--- OUTSIDE RECORDS SUMMARY | 2020-01-12 20:04 | XMS REPORT ---
Author Author Nani Smith Organization [facility] Address [address] [place] [address] Care Team Providers Care Dining Room Manager Name Role Phone MARY Smith Unavailable PROBLEMS Type Condition ICD9-CM Code [id number] Code Onset Dates Condition S tatus SNOMED Code Problem Personal history of alcoholism F10.21 Active 640796836 Problem Fibromyalgia M79.7 Active 8118085 7 Problem Other chronic pain G89.29 Active 8 3178755 Problem Lumbago with sciatica, right side M54.41 Active 615157564047145 Problem Insomnia G47.00 Active 299071301 Problem Obesity E66.9 Active 505034952 Problem Lumbago with sciatica, left side M54.42 Active 968051727 Problem Chronic pain syndrome G89.4 Active 612221290 ALLERGIES No Information ENCOUNTERS Encounter Location Date Diagnosis [facility] [address] [id number] [address] [place] [phone] Aug, Fibromyalgia M79.7 and BMI 5 0.0-59.9, adult Z68.43 [facility] [id number] [place] [phone] Aug, [facility] [address] [id number] [address] [place] [phone] Aug, [facility] [id number] [place] [phone] Jul, [facility] [id number] [place] [address] Jul, Insomnia G47.00 [facility] [address] [id number] [address] [place] [phone] Jul, [facility] [id number] [place] [address] Jul, [facility] [address] [phone] Jul, [facility] [address] [id number] Jul, Fibromyalgia M79.7 [facility] [address] [id number] Jul, [facility] [address] [id number] Jun, Chronic pain syndrome G89.4 and Fibromyalgia M79.7 [facility] [address] [id number] Jun, Fibromyalgia M79.7 [facility] [address] [address] Jun, Bronchitis J40 ; Fibromyalgi a M79.7 ; Lumbago with sciatica, left side M54.42 ; Lumbago with sciatica, right side M54.41 ; Other chronic pain G89.29 and BMI 45.0-49.9, adult Z68.42 [facility] [id number] [place] [phone] Jun, Influenza-like illness R69 [facility] [id number] [place] [phone] Jun, [facility] [address] [id number] Jun, Fibromyalgia M79.7 [facility] [address] [id number] May, Fibromyalgia M79.7 [facility] [address] [address] Apr, Insomnia G47.00 [facility] [address] [id number] [address] [place] [phone] Apr, [facility] [address] [facility] [id number] [address] [place] [phone] Apr, [facility] [address] [facility] [id number] [address] [place] [phone] Apr, Fibromyalgia M79.7 [facility] [address] [facility] [id number] [address] [place] [phone] 16 Mar, 2017 Encounter for immunization Z 23 [facility] [address] [facility] [id number] [address] [place] [phone] 10 Mar, 2017 Visit for TB skin test Z11.1 [facility] [address] [facility] [id number] [address] [place] [phone] 04 Mar, 2017 Fibromyalgia M79.7 [facility] [address] [facility] [id number] [address] [place] [phone] 12 Feb, 2017 Fibromyalgia M79.7 [facility] [address] [facility] [id number] [address] [place] [phone] Feb, [facility] [address] [facility] [id number] [address] [place] [phone] Feb, Fibromyalgia M79.7 [facility] [address] [facility] [id number] [address] [place] [phone] Jan, Fibromyalgia M79.7 ; Obesity E66.9 ; Insomnia G47.00 and Chronic pain syndrome G89.4 [facility] [address] [id number] [address] [place] [phone] Jan, [facility] [address] [facility] [id number] [address] [place] [phone] Jan, [facility] [address] [facility] [id number] [address] [place] [phone] Dec, [facility] [address] [facility] [id number] [address] [place] [phone] Dec, [facility] [address] [id number] [address] [place] [phone] Dec, [facility] [address] [facility] [id number] [address] [place] [phone] Nov, Chronic pain syndrome G89.4 [facility] [address] [facility] [id number] [address] [place] [phone] October, Chronic pain syndrome G89.4 [facility] [address] [id number] [address] [place] [phone] October, Chronic pain syndrome G89.4 [facility] [address] [id number] [address] [place] [phone] October, [facility] [address] [facility] [id number] [address] [place] [phone] October, Chronic pain syndrome G89.4 [facility] [address] [facility] [id number] [address] [place] [phone] October, Chronic pain syndrome G89.4 and Fibromyalgia M79.7 [facility] [address] [id number] [address] [place] [phone] October, Fibromyalgia M79.7 and Chron ic pain syndrome G89.4 [facility] [address] [facility] [id number] [address] [place] [phone] Sep, Encounter for immunization Z 23 [facility] [address] [facility] [id number] [address] [place] [phone] Sep, [facility] [address] [facility] [id number] [address] [place] [phone] Sep, [facility] [address] [facility] [id number] [address] [place] [phone] Aug, Fibromyalgia M79.7 and Insom christo G47.00 [facility] [address] [facility] [id number] [address] [place] [phone] Aug, Obesity E66.9 ; Snoring R06. 83 ; Fibromyalgia M79.7 ; Insomnia G47.00 and Screening cholesterol level Z13.220 [facility] [id number] [place] [address] Aug, Fibromyalgia M79.7 [facility] [address] [id number] [address] [place] [phone] Jul, Obesity E66.9 ; Personal his tory of alcoholism F10.21 and Fibromyalgia M79.7 [facility] [address] [id number] [address] [place] [phone] Jul, [facility] [address] [address] Jun, Obesity E66.9 ; Chronic pain syndrome G89.4 ; Fibromyalgia M79.7 ; Insomnia G47.00 and Wellness examination Z00.00 [address] [address] Jun, Personal history of alcoholi sm F10.21 and Chronic pain syndrome G89.4 [address] [id number] [place] [address] Jun, [address] [address] Jun, Fibromyalgia M79.7 [facility] [address] [id number] [address] [place] [phone] May, Fibromyalgia M79.7 [facility] [address] [id number] [address] [place] [address] May, [facility] [id number] [place] [address] Apr, Obesity E66.9 ; Fibromyalgia M79.7 ; Insomnia G47.00 and Personal history of alcoholism F10.21 [facility] [address] [id number] [address] [place] [phone] Apr, [facility] [id number] [place] [phone] Apr, [facility] [address] [id number] [address] [place] [phone] Mar, [facility] [address] [id number] [address] [place] [phone] Mar, [facility] [address] [id number] [address] [place] [phone] Feb, [facility] [address] [id number] [address] [place] [phone] Jan, [facility] [address] [id number] [address] [place] [phone] Dec, Obesity E66.9 ; Fibromyalgia M79.7 ; Personal history of alcoholism F10.21 and Insomnia G47.00 [facility] [address] [id number] [address] [place] [phone] Dec, Chronic pain syndrome G89.4 [facility] [address] [id number] [address] [place] [phone] Dec, [facility] [address] [facility] [id number] [address] [place] [phone] Dec, [facility] [address] [facility] [id number] [address] [place] [phone] Nov, [facility] [address] [facility] [id number] [address] [place] [phone] Nov, [facility] [address] [facility] [id number] [address] [place] [phone] Nov, Fibromyalgia M79.7 ; Obesity E66.9 ; Personal history of alcoholism F10.21 ; Insomnia G47.00 and Chronic pain syndrome G89.4 [facility] [address] [id number] [address] [place] [phone] 10 Nov, 2015 Fibromyalgia M79.7 [facility] [address] [facility] [id number] [address] [place] [phone] October, Fibromyalgia M79.7 [facility] [address] [facility] [id number] [address] [place] [phone] October, Obesity E66.9 ; Fibromyalgia M79.7 ; Personal history of alcoholism F10.21 and Insomnia G47.00 [facility] [address] [facility] [id number] [address] [place] [phone] Sep, [facility] [address] [facility] [id number] [address] [place] [phone] Aug, Fibromyalgia M79.7 ; Obesity E66.9 ; Personal history of alcoholism F10.21 and Insomnia G47.00 [facility] [address] [facility] [id number] [address] [place] [phone] Aug, [facility] [address] [id number] [address] [place] [phone] Jul, [facility] [address] [id number] [address] [place] [phone] Jun, [facility] [address] [facility] [id number] [address] [place] [phone] Jun, [facility] [address] [id number] [address] [place] [phone] May, [facility] [address] [facility] [id number] [address] [place] [phone] May, Fibromyalgia M79.7 ; Obesity E66.9 and Insomnia G47.00 [facility] [address] [facility] [id number] [address] [place] [phone] May, [facility] [id number] [place] [address] May, Fibromyalgia M79.7 ; Persona l history of alcoholism F10.21 ; Insomnia G47.00 and Obesity E66.9 [facility] [address] [facility] [id number] [address] [place] [phone] Apr, [facility] [address] [id number] [address] [place] [address] Apr, Fibromyalgia M79.7 ; Obesity E66.9 ; Insomnia G47.00 ; Personal history of alcoholism F10.21 and Frequent falls R29.6 [place] [id number] [place] [address] Apr, Obesity E66.9 ; Fibromyalgia M79.7 and Insomnia G47.00 [place] [id number] [place] [phone] Mar, [place] [id number] [place] [address] Mar, [place] [id number] [place] [address] Mar, [place] [address] [id number] Mar, Obesity E66.9 ; Fibromyalgia M79.7 and Personal history of alcoholism F10.21 [place] [id number] [place] [phone] Feb, [address] [address] [address] Feb, Other malaise and fatigue 78 0.79 ; Abnormal weight gain 783.1 and Fibromyalgia 729.1 [place] [address] [id number] [address] [place] [phone] Jan, [place] [address] [id number] [address] [place] [phone] Dec, [place] [id number] [place] [address] Dec, Fibromyalgia 729.1 and Abnor mal weight gain 783.1 [address] [id number] [place] [address] Dec, Unspecified myalgia and myos itis 729.1 ; Abnormal weight gain 783.1 and Fibromyalgia 729.1 [facility] [address] [id number] [address] [place] [address] Nov, [facility] [address] [id number] [address] [place] [phone] Nov, Other malaise and fatigue 78 0.79 ; Unspecified myalgia and myositis 729.1 and Abnormal weight gain 783.1 [facility] [address] [id number] [address] [place] [phone] Nov, [facility] [address] [id number] [address] [place] [phone] Nov, [facility] [address] [id number] [address] [place] [phone] October, [facility] [address] [id number] [address] [place] [phone] October, Unspecified myalgia and myos itis 729.1 and Scabies 133.0 [facility] [address] [id number] [address] [place] [phone] October, [facility] [address] [id number] [address] [place] [phone] Sep, [facility] [address] [id number] [address] [place] [phone] Sep, [facility] [address] [id number] [address] [place] [phone] Aug, [facility] [address] [id number] [address] [place] [phone] Aug, [facility] [address] [id number] [address] [place] [phone] Aug, [facility] [address] [id number] [address] [place] [phone] Aug, [facility] [address] [id number] [address] [place] [address], [place] [address] 12 Aug, 2014 [facility] [address] [id number] [address] [place] [address], [place] [address] 12 Aug, 2014 [facility] [address] [id number] [address] [place] [address], [place] [address] Aug, [facility] [address] [id number] [address] [place] [address], [place] [address] 11 Aug, 2014 [facility] [address] [id number] [address] [place] [address], [place] [address] 10 Aug, 2014 [facility] [address] [id number] [address] [place] [address], [place] [address] 10 Aug, 2014 [facility] [address] [id number] [address] [place] [address], [place] [address] May, [facility] [address] [id number] [address] [place] [address], [place] [address] May, [facility] [address] [id number] [address] [place] [address], [place] [address] Mar, [facility] [address] [id number] [address] [place] [address], [place] [address] Mar, [facility] [address] [id number] [address] [place] [address], [place] [address] Feb, [facility] [address] [id number] [address] [place] [address], [place] [phone] Feb, [facility] [address] [id number] [address] [place] [address], [place] [address] Feb, [facility] [address] [id number] [address] [place] [address], [place] [address] Feb, [facility] [address] [id number] [address] [place] [address], [place] [address] October, [facility] [address] [id number] [address] [place] [address], [place] [address] October, [facility] [address] [id number] [address] [place] [phone] October, [facility] [address] [id number] [address] [place] [phone] October, [facility] [address] [id number] [address] [place] [phone] Sep, [facility] [address] [id number] [address] [place] [phone] Sep, [facility] [address] [id number] [address] [place] [phone] Sep, [facility] [address] [id number] [address] [place] [phone] Sep, [facility] [address] [id number] [address] [place] [phone] Jul, [facility] [address] [id number] [address] [place] [phone] Jul, [facility] [address] [id number] [address] [place] [phone] Jun, [facility] [address] [id number] [address] [place] [phone] Jun, [facility] [address] [id number] [address] [place] [phone] May, [facility] [address] [id number] [address] [place] [phone] May, IMMUNIZATIONS Vaccine Route Administration Date Status FLUARIX QUAD (3 AND UP) 2016 IM Intramuscular Mar 30, 2017 Ad ministered SOCIAL HISTORY Never Assessed REASON FOR VISIT Flu shot JjournNehemiah PLAN OF CARE VITAL SIGNS MEDICATIONS No Known Medications RESULTS No Results PROCEDURES Procedure Date Ordered Result Body Site FLUARIX QUAD (3 & UP)--2014Mar 30, 2017 SINGLE IMMUNIZATION ADMIN Mar 30, 2017 INSTRUCTIONS MEDICATIONS ADMINISTERED No Known Medications MEDICAL (GENERAL) HISTORY Type Description Date Medical History fibromyalgia Medical History insomnia Medical History obesity Surgical History ganglion cyst removal 1996 Surgical History section 2003 Hospitalization History surgeries
--- OUTSIDE RECORDS SUMMARY | 2020-01-12 20:04 | XMS REPORT ---
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 Name Role Phone MARY Smith Unavailable PROBLEMS Type Condition ICD9-CM Code MNS74-UE Code Onset Dates Condition S tatus SNOMED Code Problem Personal history of alcoholism F10.21 Active 700379367 Problem Fibromyalgia M79.7 Active 7395281 7 Problem Other chronic pain G89.29 Active 8 3605028 Problem Lumbago with sciatica, right side M54.41 Active 526483842688015 Problem Insomnia G47.00 Active 673742152 Problem Obesity E66.9 Active 209501855 Problem Lumbago with sciatica, left side M54.42 Active 928691218 Problem Chronic pain syndrome G89.4 Active 177955999 ALLERGIES No Information ENCOUNTERS Encounter Location Date Diagnosis [facility] [address] [address] Sep, [facility] [address] [id number] [address] [place] [address] Aug, Fibromyalgia M79.7 and BMI 5 0.0-59.9, adult Z68.43 [facility] [address] [id number] [address] [place] [address] Aug, [facility] [address] [address] Aug, [facility] [address] [address] Jul, [facility] [address] [id number] [address] [place] [address] Jul, Insomnia G47.00 [facility] [address] [facility] [id number] [address] [place] [address] Jul, [facility] [address] [address] Jul, [facility] [address] [id number] [address] [place] [address] Jul, [facility] [address] [address] Jul, Fibromyalgia M79.7 [facility] [address] [address] Jul, [facility] [address] [address] Jun, Chronic pain syndrome G89.4 and Fibromyalgia M79.7 [facility] [address] [address] Jun, Fibromyalgia M79.7 [facility] [id number] [place] [address] Jun, Bronchitis J40 ; Fibromyalgi a M79.7 ; Lumbago with sciatica, left side M54.42 ; Lumbago with sciatica, right side M54.41 ; Other chronic pain G89.29 and BMI 45.0-49.9, adult Z68.42 [facility] [address] [place] [address] Jun, Influenza-like illness R69 [facility] [address] [place] [address] Jun, [facility] [address] [address] Jun, Fibromyalgia M79.7 [facility] [id number] [place] [address] May, Fibromyalgia M79.7 [facility] [id number] [place] [address] Apr, Insomnia G47.00 [facility] [address] [facility] [id number] [address] [place] [address] Apr, [facility] [address] [facility] [id number] [address] [place] [address] Apr, [facility] [address] [place] [address] [id number] [address] [place] [address] Apr, Fibromyalgia M79.7 [facility] [address] [id number] [address] [place] [address] 16 Mar, 2017 Encounter for immunization Z 23 [facility] [id number] [place] [address] 10 Mar, 2017 Visit for TB skin test Z11.1 [facility] [id number] [place] [address] Mar, Fibromyalgia M79.7 [facility] [address] [id number] [address] [place] [address] Feb, Fibromyalgia M79.7 [facility] [id number] [place] [address] Feb, [facility] [id number] [place] [address] Feb, Fibromyalgia M79.7 [facility] [address] [id number] [address] [place] [address] Jan, Fibromyalgia M79.7 ; Obesity E66.9 ; Insomnia G47.00 and Chronic pain syndrome G89.4 [facility] [address] [id number] [address] [place] [address] Jan, [facility] [address] [id number] [address] [place] [address] Jan, [facility] [address] [id number] [address] [place] [address] Dec, [facility] [address] [id number] [address] [place] [address] Dec, [facility] [address] [id number] [address] [place] [address] Dec, [facility] [address] [id number] [address] [place] [address] Nov, Chronic pain syndrome G89.4 [facility] [address] [id number] [address] [place] [address] October, Chronic pain syndrome G89.4 [facility] [address] [id number] [address] [place] [phone] October, Chronic pain syndrome G89.4 [facility] [address] [id number] [address] [place] [address] October, [facility] [address] [id number] [address] [place] [address] October, Chronic pain syndrome G89.4 [facility] [address] [id number] [address] [place] [address] October, Chronic pain syndrome G89.4 and Fibromyalgia M79.7 [facility] [address] [id number] [address] [place] [address] October, Fibromyalgia M79.7 and Chron ic pain syndrome G89.4 [facility] [address] [id number] [address] [place] [address] Sep, Encounter for immunization Z 23 [facility] [address] [id number] [address] [place] [address] Sep, [facility] [address] [facility] [id number] [address] [place] [address] Sep, [facility] [address] [facility] [id number] [address] [place] [address] Aug, Fibromyalgia M79.7 and Insom christo G47.00 [facility] [address] [id number] Aug, Obesity E66.9 ; Snoring R06. 83 ; Fibromyalgia M79.7 ; Insomnia G47.00 and Screening cholesterol level Z13.220 [place] [address] [address] Aug, Fibromyalgia M79.7 [place] [address] [address] Jul, Obesity E66.9 ; Personal his tory of alcoholism F10.21 and Fibromyalgia M79.7 [place] [address] [address] Jul, [place] [address] [address] Jun, Obesity E66.9 ; Chronic pain syndrome G89.4 ; Fibromyalgia M79.7 ; Insomnia G47.00 and Wellness examination Z00.00 [place] [address] [address] Jun, Personal history of alcoholi sm F10.21 and Chronic pain syndrome G89.4 [place] [address] [address] Jun, [place] [address] [address] Jun, Fibromyalgia M79.7 [place] [address] [address] May, Fibromyalgia M79.7 [place] [address] [address] May, [place] [address] [address] Apr, Obesity E66.9 ; Fibromyalgia M79.7 ; Insomnia G47.00 and Personal history of alcoholism F10.21 [place] [id number] [place] [address] Apr, [facility] [address] [id number] [address] [place] [address] Apr, [facility] [address] [id number] [address] [place] [address] Mar, [facility] [address] [id number] [address] [place] [phone] Mar, [facility] [address] [id number] [address] [place] [address] Feb, [facility] [address] [id number] [address] [place] [address] Jan, [facility] [address] [id number] [address] [place] [address] Dec, Obesity E66.9 ; Fibromyalgia M79.7 ; Personal history of alcoholism F10.21 and Insomnia G47.00 [facility] [address] [id number] [address] [place] [address] Dec, Chronic pain syndrome G89.4 [facility] [address] [id number] [address] [place] [address] Dec, [facility] [address] [facility] [id number] [address] [place] [phone] Dec, [facility] [address] [id number] [address] [place] [address] Nov, [facility] [address] [id number] [address] [place] [address] Nov, [facility] [address] [facility] [id number] [address] [place] [address] Nov, Fibromyalgia M79.7 ; Obesity E66.9 ; Personal history of alcoholism F10.21 ; Insomnia G47.00 and Chronic pain syndrome G89.4 [facility] [address] [id number] [address] [place] [address] Nov, Fibromyalgia M79.7 [facility] [address] [id number] [address] [place] [address] October, Fibromyalgia M79.7 [facility] [address] [id number] [address] [place] [address] October, Obesity E66.9 ; Fibromyalgia M79.7 ; Personal history of alcoholism F10.21 and Insomnia G47.00 [facility] [address] [facility] [id number] [address] [place] [address] Sep, [facility] [address] [facility] [id number] [address] [place] [address] Aug, Fibromyalgia M79.7 ; Obesity E66.9 ; Personal history of alcoholism F10.21 and Insomnia G47.00 [facility] [address] [id number] [address] [place] [address] Aug, [facility] [address] [id number] [address] [place] [id number] Jul, [facility] [address] [id number] [address] [place] [address] Jun, [facility] [id number] [place] [address] Jun, [facility] [address] [id number] [address] [place] [address] May, [facility] [address] [id number] [address] [place] [address] May, Fibromyalgia M79.7 ; Obesity E66.9 and Insomnia G47.00 [facility] [address] [id number] [address] [place] [address] May, [facility] [id number] [address] [place] [address] May, Fibromyalgia M79.7 ; Persona l history of alcoholism F10.21 ; Insomnia G47.00 and Obesity E66.9 [place] [id number] [address] Apr, [facility] [address] [address] Apr, Fibromyalgia M79.7 ; Obesity E66.9 ; Insomnia G47.00 ; Personal history of alcoholism F10.21 and Frequent falls R29.6 [place] [address] [address] Apr, Obesity E66.9 ; Fibromyalgia M79.7 and Insomnia G47.00 [place] [address] [address] Mar, [place] [address] [address] Mar, [place] [address] [address] Mar, [facility] [address] [address] Mar, Obesity E66.9 ; Fibromyalgia M79.7 and Personal history of alcoholism F10.21 [place] [address] [address] Feb, [place] [address] [address] Feb, Other malaise and fatigue 78 0.79 ; Abnormal weight gain 783.1 and Fibromyalgia 729.1 [place] [address] [address] Jan, [place] [address] [address] Dec, [place] [address] [address] Dec, Fibromyalgia 729.1 and Abnor mal weight gain 783.1 [place] [id number] [place] [address] Dec, Unspecified myalgia and myos itis 729.1 ; Abnormal weight gain 783.1 and Fibromyalgia 729.1 [facility] [address] [id number] [address] [place] [address] Nov, [facility] [address] [id number] [address] [place] [address] Nov, Other malaise and fatigue 78 0.79 ; Unspecified myalgia and myositis 729.1 and Abnormal weight gain 783.1 [facility] [address] [id number] [address] [place] [address] Nov, [facility] [address] [id number] [address] [place] [address] Nov, [facility] [address] [facility] [id number] [address] [place] [address] October, [facility] [address] [id number] [address] [place] [address] October, Unspecified myalgia and myos itis 729.1 and Scabies 133.0 [facility] [address] [id number] [address] [place] [address] October, [facility] [address] [id number] [address] [place] [address] Sep, [facility] [address] [id number] [address] [place] [address] Sep, [facility] [address] [id number] [address] [place] [address] Aug, [facility] [address] [id number] [address] [place] [address] Aug, [facility] [address] [facility] [id number] [address] [place] [address] Aug, [facility] [address] [id number] [address] [place] [address], [place] [address] 17 Aug, 2014 [facility] [address] [id number] [address] [place] [address], [place] [address] 12 Aug, 2014 [facility] [address] [id number] [address] [place] [address], [place] [address] 12 Aug, 2014 [facility] [address] [id number] [address] [place] [address], [place] [address] 11 Aug, 2014 [facility] [address] [id number] [address] [place] [address], [place] [address] 11 Aug, 2014 [facility] [address] [id number] [address] [place] [address], [place] [address] 10 Aug, 2014 [facility] [address] [id number] [address] [place] [address], [place] [address] 10 Aug, 2014 [facility] [address] [id number] [address] [place] [address], [place] [address] May, [facility] [address] [id number] [address] [place] [address], [place] [address] May, [facility] [address] [id number] [address] [place] [address], [place] [address] Mar, [facility] [address] [id number] [address] [place] [address], [place] [address] Mar, [facility] [address] [id number] [address] [place] [address], [place] [address] 17 Feb, 2014 [facility] [address] [id number] [address] [place] [address], [place] [address] 17 Feb, 2014 [facility] [address] [id number] [address] [place] [address], [place] [address] Feb, [facility] [address] [id number] [address] [place] [address], [place] [address] Feb, [facility] [address] [id number] [address] [place] [address], [place] [address] October, [facility] [address] [id number] [address] [place] [address] October, [facility] [address] [id number] [address] [place] [phone] October, [facility] [address] [id number] [address] [place] [phone] October, [facility] [address] [id number] [address] [place] [address] Sep, [facility] [address] [id number] [address] [place] [address] Sep, [facility] [address] [id number] [address] [place] [address] Sep, [facility] [address] [id number] [address] [place] [address] Sep, [facility] [address] [id number] [address] [place] [address] Jul, [facility] [address] [id number] [address] [place] [address] Jul, [facility] [address] [id number] [address] [place] [address] Jun, [facility] [address] [id number] [address] [place] [address] Jun, [facility] [address] [id number] [address] [place] [address] May, [facility] [address] [id number] [address] [place] [address] May, IMMUNIZATIONS No Known Immunizations SOCIAL HISTORY Never Assessed REASON FOR VISIT Cymbalta refill PLAN OF CARE VITAL SIGNS MEDICATIONS Medication Instructions Dosage Frequency Start Date End Date Duration S stacy Duloxetine HCl 60 mg Orally Once a day 1 capsule 24h 30 Active RESULTS No Results PROCEDURES No Known procedures INSTRUCTIONS MEDICATIONS ADMINISTERED No Known Medications MEDICAL (GENERAL) HISTORY Type Description Date Medical History fibromyalgia Medical History insomnia Medical History obesity Surgical History ganglion cyst removal 1996 Surgical History section 2004 Hospitalization History surgeries
--- OUTSIDE RECORDS SUMMARY | 2020-01-12 20:04 | XMS REPORT ---
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 Name Role Phone MARY Smith Unavailable PROBLEMS Type Condition ICD9-CM Code SLT61-LK Code Onset Dates Condition S tatus SNOMED Code Problem Personal history of alcoholism F10.21 Active 246032546 Problem Fibromyalgia M79.7 Active 6787627 7 Problem Other chronic pain G89.29 Active 8 5452694 Problem Lumbago with sciatica, right side M54.41 Active 505302522063626 Problem Insomnia G47.00 Active 491058860 Problem Obesity E66.9 Active 477772523 Problem Lumbago with sciatica, left side M54.42 Active 162534257 Problem Chronic pain syndrome G89.4 Active [id number] ALLERGIES No Information ENCOUNTERS Encounter Location Date Diagnosis [facility] [address] [id number] [address] [place] [address] Aug, Fibromyalgia M79.7 and BMI 5 0.0-59.9, adult Z68.43 [facility] [id number] [place] [address] Aug, [facility] [address] [id number] [address] [place] [address] Aug, [facility] [address] [id number] [address] [place] [address] Jul, [facility] [address] [id number] [place] [address] Jul, Insomnia G47.00 [facility] [address] [id number] [address] [place] [address] Jul, [facility] [id number] [place] [address] Jul, [facility] [address] [address] Jul, [facility] [address] [address] Jul, Fibromyalgia M79.7 [facility] [address] [address] Jul, [facility] [address] [address] Jun, Chronic pain syndrome G89.4 and Fibromyalgia M79.7 [facility] [address] [address] Jun, Fibromyalgia M79.7 [facility] [address] [address] Jun, Bronchitis J40 ; Fibromyalgi a M79.7 ; Lumbago with sciatica, left side M54.42 ; Lumbago with sciatica, right side M54.41 ; Other chronic pain G89.29 and BMI 45.0-49.9, adult Z68.42 [facility] [address] [id number] [address] [place] [address] Jun, Influenza-like illness R69 [facility] [address] [id number] [address] [place] [address] Jun, [facility] [address] [address] Jun, Fibromyalgia M79.7 [facility] [address] [address] May, Fibromyalgia M79.7 [facility] [address] [address] Apr, Insomnia G47.00 [facility] [address] [id number] [address] [place] [address] Apr, [facility] [address] [facility] [id number] [address] [place] [address] Apr, [facility] [address] [facility] [id number] [address] [place] [address] Apr, Fibromyalgia M79.7 [facility] [address] [facility] [id number] [address] [place] [address] 16 Mar, 2017 Encounter for immunization Z 23 [facility] [address] [facility] [id number] [address] [place] [address] 10 Mar, 2017 Visit for TB skin test Z11.1 [facility] [address] [facility] [id number] [address] [place] [address] 04 Mar, 2017 Fibromyalgia M79.7 [facility] [address] [facility] [id number] [address] [place] [phone] 12 Feb, 2017 Fibromyalgia M79.7 [facility] [address] [facility] [id number] [address] [place] [address] Feb, [facility] [address] [facility] [id number] [address] [place] [address] Feb, Fibromyalgia M79.7 [facility] [address] [facility] [id number] [address] [place] [address] Jan, Fibromyalgia M79.7 ; Obesity E66.9 ; Insomnia G47.00 and Chronic pain syndrome G89.4 [facility] [address] [id number] [address] [place] [address] Jan, [facility] [address] [facility] [id number] [address] [place] [address] Jan, [facility] [address] [facility] [id number] [address] [place] [address] Dec, [facility] [address] [facility] [id number] [address] [place] [phone] Dec, [facility] [address] [id number] [address] [place] [address] Dec, [facility] [address] [facility] [id number] [address] [place] [address] Nov, Chronic pain syndrome G89.4 [facility] [address] [facility] [id number] [address] [place] [address] October, Chronic pain syndrome G89.4 [facility] [address] [id number] [address] [place] [address] October, Chronic pain syndrome G89.4 [facility] [address] [id number] [address] [place] [address] October, [facility] [address] [facility] [id number] [address] [place] [address] October, Chronic pain syndrome G89.4 [facility] [address] [facility] [id number] [address] [place] [address] October, Chronic pain syndrome G89.4 and Fibromyalgia M79.7 [facility] [address] [id number] [address] [place] [address] October, Fibromyalgia M79.7 and Chron ic pain syndrome G89.4 [facility] [address] [facility] [id number] [address] [place] [address] Sep, Encounter for immunization Z 23 [facility] [address] [facility] [id number] [address] [place] [address] Sep, [facility] [address] [facility] [id number] [address] [place] [address] Sep, [facility] [address] [facility] [id number] [address] [place] [address] Aug, Fibromyalgia M79.7 and Insom christo G47.00 [facility] [address] [facility] [id number] [address] [place] [address] Aug, Obesity E66.9 ; Snoring R06. 83 ; Fibromyalgia M79.7 ; Insomnia G47.00 and Screening cholesterol level Z13.220 [facility] [address] [id number] [address] [place] [address] Aug, Fibromyalgia M79.7 [facility] [address] [id number] [address] [place] [address] Jul, Obesity E66.9 ; Personal his tory of alcoholism F10.21 and Fibromyalgia M79.7 [facility] [address] [id number] [address] [place] [address] Jul, [facility] [address] [address] Jun, Obesity E66.9 ; Chronic pain syndrome G89.4 ; Fibromyalgia M79.7 ; Insomnia G47.00 and Wellness examination Z00.00 [address] [address] [address] Jun, Personal history of alcoholi sm F10.21 and Chronic pain syndrome G89.4 [place] [id number] [place] [address] Jun, [place] [address] [address] Jun, Fibromyalgia M79.7 [facility] [address] [id number] [address] [place] [address] May, Fibromyalgia M79.7 [facility] [address] [id number] [address] [place] [address] May, [facility] [id number] [place] [address] Apr, Obesity E66.9 ; Fibromyalgia M79.7 ; Insomnia G47.00 and Personal history of alcoholism F10.21 [facility] [address] [id number] [address] [place] [address] Apr, [facility] [address] [id number] [place] [address] Apr, [facility] [address] [id number] [address] [place] [address] Mar, [facility] [address] [id number] [address] [place] [address] Mar, [facility] [address] [id number] [address] [place] [address] Feb, [facility] [address] [id number] [address] [place] [phone] Jan, [facility] [address] [id number] [address] [place] [address] Dec, Obesity E66.9 ; Fibromyalgia M79.7 ; Personal history of alcoholism F10.21 and Insomnia G47.00 [facility] [address] [id number] [address] [place] [address] Dec, Chronic pain syndrome G89.4 [facility] [address] [id number] [address] [place] [address] Dec, [facility] [address] [facility] [id number] [address] [place] [address] Dec, [facility] [address] [facility] [id number] [address] [place] [address] Nov, [facility] [address] [facility] [id number] [address] [place] [address] Nov, [facility] [address] [facility] [id number] [address] [place] [address] Nov, Fibromyalgia M79.7 ; Obesity E66.9 ; Personal history of alcoholism F10.21 ; Insomnia G47.00 and Chronic pain syndrome G89.4 [facility] [address] [id number] [address] [place] [address] 10 Nov, 2015 Fibromyalgia M79.7 [facility] [address] [facility] [id number] [address] [place] [address] October, Fibromyalgia M79.7 [facility] [address] [facility] [id number] [address] [place] [address] October, Obesity E66.9 ; Fibromyalgia M79.7 ; Personal history of alcoholism F10.21 and Insomnia G47.00 [facility] [address] [facility] [id number] [address] [place] [address] Sep, [facility] [address] [facility] [id number] [address] [place] [address] Aug, Fibromyalgia M79.7 ; Obesity E66.9 ; Personal history of alcoholism F10.21 and Insomnia G47.00 [facility] [address] [facility] [id number] [address] [place] [address] Aug, [facility] [address] [id number] [address] [place] [address] Jul, [facility] [address] [id number] [address] [place] [phone] Jun, [facility] [address] [facility] [id number] [address] [place] [phone] Jun, [facility] [address] [id number] [address] [place] [address] May, [facility] [address] [facility] [id number] [address] [place] [address] May, Fibromyalgia M79.7 ; Obesity E66.9 and Insomnia G47.00 [facility] [address] [facility] [id number] [address] [place] [address] May, [facility] [id number] [place] [address] May, Fibromyalgia M79.7 ; Persona l history of alcoholism F10.21 ; Insomnia G47.00 and Obesity E66.9 [facility] [address] [facility] [id number] [address] [place] [address] Apr, [facility] [address] [id number] [address] [place] [address] Apr, Fibromyalgia M79.7 ; Obesity E66.9 ; Insomnia G47.00 ; Personal history of alcoholism F10.21 and Frequent falls R29.6 [place] [id number] [place] [address] Apr, Obesity E66.9 ; Fibromyalgia M79.7 and Insomnia G47.00 [place] [id number] [place] [address] Mar, [place] [id number] [place] [address] Mar, [place] [id number] [place] [address] Mar, [place] [address] [address] Mar, Obesity E66.9 ; Fibromyalgia M79.7 and Personal history of alcoholism F10.21 [place] [id number] [place] [address] Feb, [place] [address] [address] Feb, Other malaise and fatigue 78 0.79 ; Abnormal weight gain 783.1 and Fibromyalgia 729.1 [place] [address] [id number] [place] [address] Jan, [place] [address] [id number] [place] [address] Dec, [place] [id number] [place] [address] Dec, Fibromyalgia 729.1 and Abnor mal weight gain 783.1 [place] [id number] [place] [address] Dec, Unspecified myalgia and myos itis 729.1 ; Abnormal weight gain 783.1 and Fibromyalgia 729.1 [facility] [address] [id number] [address] [place] [phone] Nov, [facility] [address] [id number] [address] [place] [address] Nov, Other malaise and fatigue 78 0.79 ; Unspecified myalgia and myositis 729.1 and Abnormal weight gain 783.1 [facility] [address] [id number] [address] [place] [address] Nov, [facility] [address] [id number] [address] [place] [address] Nov, [facility] [address] [id number] [address] [place] [phone] October, [facility] [address] [id number] [address] [place] [address] October, Unspecified myalgia and myos itis 729.1 and Scabies 133.0 [facility] [address] [id number] [address] [place] [address] October, [facility] [address] [id number] [address] [place] [address] Sep, [facility] [address] [id number] [address] [place] [address] Sep, [facility] [address] [id number] [address] [place] [address] Aug, [facility] [address] [id number] [address] [place] [address] Aug, [facility] [address] [id number] [address] [place] [phone] Aug, [facility] [address] [id number] [address] [place] [address] Aug, [facility] [address] [id number] [address] [place] [address], [place] [address] 12 Aug, 2014 [facility] [address] [id number] [address] [place] [address], [place] [address] 12 Aug, 2014 [facility] [address] [id number] [address] [place] [address], [place] [address] Aug, [facility] [address] [id number] [address] [place] [address], [place] [address] 11 Aug, 2014 [facility] [address] [id number] [address] [place] [address], [place] [address] 10 Aug, 2014 [facility] [address] [id number] [address] [place] [address], [place] [address] 10 Aug, 2014 [facility] [address] [id number] [address] [place] [address], [place] [address] May, [facility] [address] [id number] [address] [place] [address], [place] [address] May, [facility] [address] [id number] [address] [place] [address], [place] [address] Mar, [facility] [address] [id number] [address] [place] [address], [place] [address] Mar, [facility] [address] [id number] [address] [place] [address], [place] [address] Feb, [facility] [address] [id number] [address] [place] [address], [place] [address] Feb, [facility] [address] [id number] [address] [place] [address], [place] [address] Feb, [facility] [address] [id number] [address] [place] [address], [place] [address] Feb, [facility] [address] [id number] [address] [place] [address], [place] [address] October, [facility] [address] [id number] [address] [place] [address], [place] [address] October, [facility] [address] [id number] [address] [place] [address] October, [facility] [address] [id number] [address] [place] [address] October, [facility] [address] [id number] [address] [place] [address] Sep, [facility] [address] [id number] [address] [place] [address] Sep, [facility] [address] [id number] [address] [place] [address] Sep, [facility] [address] [id number] [address] [place] [address] Sep, [facility] [address] [id number] [address] [place] [address] Jul, [facility] [address] [id number] [address] [place] [address] Jul, [facility] [address] [id number] [address] [place] [address] Jun, [facility] [address] [id number] [address] [place] [address] Jun, [facility] [address] [id number] [address] [place] [address] May, [facility] [address] [id number] [address] [place] [address] May, IMMUNIZATIONS No Known Immunizations SOCIAL HISTORY [...]
--- OUTSIDE RECORDS SUMMARY | 2020-01-12 20:04 | XMS REPORT ---
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 Name Role Phone HUBER MARLEY Unavailable PROBLEMS Type Condition ICD9-CM Code MFG25-UY Code Onset Dates Condition S tatus SNOMED Code Problem Personal history of alcoholism F10.21 Active 806482250 Problem Fibromyalgia M79.7 Active 8883231 7 Problem Other chronic pain G89.29 Active 8 4034680 Problem Lumbago with sciatica, right side M54.41 Active 178855781270203 Problem Insomnia G47.00 Active 832988094 Problem Obesity E66.9 Active 161551701 Problem Lumbago with sciatica, left side M54.42 Active 517588199 Problem Chronic pain syndrome G89.4 Active [id number] ALLERGIES No Information ENCOUNTERS Encounter Location Date Diagnosis [facility] [address] [facility] [id number] [address] [place] [phone] Dec, [facility] [address] [facility] [id number] [address] [place] [phone] Nov, [facility] [address] [facility] [id number] [address] [place] [phone] Aug, Fibromyalgia M79.7 and BMI 5 0.0-59.9, adult Z68.43 [facility] [address] [facility] [id number] [address] [place] [phone] Aug, [facility] [address] [facility] [id number] [address] [place] [phone] Aug, [facility] [address] [facility] [id number] [address] [place] [id number] Jul, [facility] [address] [facility] [id number] [address] [place] [phone] Jul, Insomnia G47.00 [facility] [address] [id number] Jul, [facility] [address] [place] [id number] [place] [phone] Jul, [facility] [address] [id number] Jul, [facility] [address] [id number] Jul, Fibromyalgia M79.7 [facility] [address] [id number] Jul, [facility] [address] [id number] Jun, Chronic pain syndrome G89.4 and Fibromyalgia M79.7 [facility] [address] [id number] Jun, Fibromyalgia M79.7 [facility] [address] [address] Jun, Bronchitis J40 ; Fibromyalgi a M79.7 ; Lumbago with sciatica, left side M54.42 ; Lumbago with sciatica, right side M54.41 ; Other chronic pain G89.29 and BMI 45.0-49.9, adult Z68.42 [facility] [address] [place] [id number] [address] [place] [phone] Jun, Influenza-like illness R69 [facility] [address] [id number] Jun, [facility] [address] [address] Jun, Fibromyalgia M79.7 [facility] [address] [address] May, Fibromyalgia M79.7 [facility] [address] [facility] [id number] [address] [place] [phone] Apr, Insomnia G47.00 [facility] [address] [facility] [id number] [address] [place] [phone] Apr, [facility] [address] [facility] [id number] [address] [place] [phone] Apr, [facility] [address] [facility] [id number] [address] [place] [phone] Apr, Fibromyalgia M79.7 [facility] [address] [place] [id number] [place] [phone] Mar, Encounter for immunization Z 23 [facility] [address] [place] [id number] [place] [id number] 10 Mar, 2017 Visit for TB skin test Z11.1 [facility] [address] [place] [id number] [address] [place] [phone] Mar, Fibromyalgia M79.7 [facility] [address] [place] [id number] [address] [place] [phone] Feb, Fibromyalgia M79.7 [facility] [address] [place] [id number] [address] [place] [phone] Feb, [facility] [id number] [place] [phone] Feb, Fibromyalgia M79.7 [facility] [address] [facility] [id number] [address] [place] [phone] Jan, Fibromyalgia M79.7 ; Obesity E66.9 ; Insomnia G47.00 and Chronic pain syndrome G89.4 [facility] [address] [facility] [id number] [address] [place] [phone] Jan, [facility] [address] [place] [id number] [address] [place] [phone] Jan, [facility] [address] [id number] [address] [place] [phone] Dec, [facility] [address] [id number] [address] [place] [phone] Dec, [facility] [address] [id number] [address] [place] [phone] Dec, [facility] [address] [facility] [id number] [address] [place] [id number] Nov, Chronic pain syndrome G89.4 [facility] [address] [id number] [address] [place] [phone] October, Chronic pain syndrome G89.4 [facility] [address] [id number] [address] [place] [id number] October, Chronic pain syndrome G89.4 [facility] [address] [id number] [address] [place] [phone] October, [facility] [address] [id number] [address] [place] [phone] October, Chronic pain syndrome G89.4 [facility] [address] [id number] [address] [place] [id number] October, Chronic pain syndrome G89.4 and Fibromyalgia M79.7 [facility] [address] [facility] [id number] [address] [place] [phone] October, Fibromyalgia M79.7 and Chron ic pain syndrome G89.4 [facility] [address] [id number] [address] [place] [phone] Sep, Encounter for immunization Z 23 [facility] [address] [facility] [id number] [address] [place] [phone] Sep, [facility] [address] [facility] [id number] [address] [place] [phone] Sep, [facility] [address] [facility] [id number] [address] [place] [id number] Aug, Fibromyalgia M79.7 and Insom christo G47.00 [facility] [address] [place] [id number] [address] [place] [phone] Aug, Obesity E66.9 ; Snoring R06. 83 ; Fibromyalgia M79.7 ; Insomnia G47.00 and Screening cholesterol level Z13.220 [place] [address] [place] [id number] [place] [phone] Aug, Fibromyalgia M79.7 [place] [address] [place] [id number] [place] [phone] Jul, Obesity E66.9 ; Personal his tory of alcoholism F10.21 and Fibromyalgia M79.7 [place] [address] [place] [id number] [address] [place] [phone] Jul, [place] [address] [place] [id number] [place] [phone] Jun, Obesity E66.9 ; Chronic pain syndrome G89.4 ; Fibromyalgia M79.7 ; Insomnia G47.00 and Wellness examination Z00.00 [place] [address] [id number] Jun, Personal history of alcoholi sm F10.21 and Chronic pain syndrome G89.4 [place] [address] [place] [id number] [address] [place] [phone] Jun, [place] [address] [place] [id number] [address] [place] [phone] Jun, Fibromyalgia M79.7 [place] [address] [place] [id number] [address] [place] [phone] May, Fibromyalgia M79.7 [place] [address] [place] [id number] [address] [place] [phone] May, [place] [address] [place] [id number] [address] [place] [phone] Apr, Obesity E66.9 ; Fibromyalgia M79.7 ; Insomnia G47.00 and Personal history of alcoholism F10.21 [facility] [address] [id number] [address] [place] [phone] Apr, [facility] [address] [id number] [address] [place] [phone] Apr, [facility] [address] [id number] [address] [place] [phone] Mar, [facility] [address] [id number] [address] [place] [phone] Mar, [facility] [address] [id number] [address] [place] [phone] Feb, [facility] [address] [id number] [address] [place] [phone] Jan, [facility] [address] [id number] [address] [place] [id number] Dec, Obesity E66.9 ; Fibromyalgia M79.7 ; Personal history of alcoholism F10.21 and Insomnia G47.00 [facility] [address] [id number] [address] [place] [phone] Dec, Chronic pain syndrome G89.4 [facility] [address] [id number] [address] [place] [phone] Dec, [facility] [address] [facility] [id number] [address] [place] [id number] Dec, [facility] [address] [id number] [address] [place] [phone] Nov, [facility] [address] [id number] [address] [place] [phone] Nov, [facility] [address] [facility] [id number] [address] [place] [phone] Nov, Fibromyalgia M79.7 ; Obesity E66.9 ; Personal history of alcoholism F10.21 ; Insomnia G47.00 and Chronic pain syndrome G89.4 [facility] [address] [facility] [id number] [address] [place] [phone] Nov, Fibromyalgia M79.7 [facility] [address] [facility] [id number] [address] [place] [id number] October, Fibromyalgia M79.7 [facility] [address] [facility] [id number] [address] [place] [phone] October, Obesity E66.9 ; Fibromyalgia M79.7 ; Personal history of alcoholism F10.21 and Insomnia G47.00 [facility] [address] [facility] [id number] [address] [place] [phone] Sep, [facility] [address] [facility] [id number] [address] [place] [phone] Aug, Fibromyalgia M79.7 ; Obesity E66.9 ; Personal history of alcoholism F10.21 and Insomnia G47.00 [facility] [address] [facility] [id number] [address] [place] [phone] Aug, [facility] [address] [facility] [id number] [address] [place] [phone] Jul, [facility] [address] [facility] [id number] [address] [place] [phone] Jun, [facility] [address] [facility] [id number] [address] [place] [phone] Jun, [facility] [address] [facility] [id number] [address] [place] [phone] May, [facility] [address] [facility] [id number] [address] [place] [phone] May, Fibromyalgia M79.7 ; Obesity E66.9 and Insomnia G47.00 [facility] [address] [facility] [id number] [address] [place] [phone] May, [facility] [address] [facility] [id number] [address] [place] [id number] May, Fibromyalgia M79.7 ; Persona l history of alcoholism F10.21 ; Insomnia G47.00 and Obesity E66.9 [place] [address] [id number] Apr, [place] [address] [id number] Apr, Fibromyalgia M79.7 ; Obesity E66.9 ; Insomnia G47.00 ; Personal history of alcoholism F10.21 and Frequent falls R29.6 [place] [address] [id number] Apr, Obesity E66.9 ; Fibromyalgia M79.7 and Insomnia G47.[address] [id number] Mar, [address] [address] Mar, [place] [address] [address] Mar, [place] [address] [address] Mar, Obesity E66.9 ; Fibromyalgia M79.7 and Personal history of alcoholism F10.21 [place] [address] [id number] Feb, [address] [address] Feb, Other malaise and fatigue 78 0.79 ; Abnormal weight gain 783.1 and Fibromyalgia 729.[address] [address] Jan, [address] [address] Dec, [address] [address] Dec, Fibromyalgia 729.1 and Abnor mal weight gain 783.1 [facility] [address] [id number] [address] [place] [id number] Dec, Unspecified myalgia and myos itis 729.1 ; Abnormal weight gain 783.1 and Fibromyalgia 729.1 [facility] [address] [id number] [address] [place] [phone] Nov, [facility] [address] [id number] [address] [place] [phone] Nov, Other malaise and fatigue 78 0.79 ; Unspecified myalgia and myositis 729.1 and Abnormal weight gain 783.1 [facility] [address] [id number] [address] [place] [phone] Nov, [facility] [address] [id number] [address] [place] [id number] Nov, [facility] [address] [id number] [address] [place] [phone] October, [facility] [address] [id number] [address] [place] [id number] October, Unspecified myalgia and myos itis 729.1 and Scabies 133.0 [facility] [address] [id number] [address] [place] [phone] October, [facility] [address] [id number] [address] [place] [id number] Sep, [facility] [address] [id number] [address] [place] [phone] Sep, [facility] [address] [id number] [address] [place] [phone] Aug, [facility] [address] [id number] [address] [place] [phone] Aug, [facility] [address] [id number] [address] [place] [id number] 17 Aug, 2014 [facility] [address] [id number] [address] [place] [address], [place] [address] 17 Aug, 2014 [facility] [address] [id number] [address] [place] [address], [place] [address] 12 Aug, 2014 [facility] [address] [id number] [address] [place] [address], [place] [address] 12 Aug, 2014 [facility] [address] [id number] [address] [place] [address], [place] [address] 11 Aug, 2014 [facility] [address] [id number] [address] [place] [address], [place] [address] 11 Aug, 2014 [facility] [address] [id number] [address] [place] [address], [place] [address] 10 Aug, 2014 [facility] [address] [id number] [address] [place] [address], [place] [address] 10 Aug, 2014 [facility] [address] [id number] [address] [place] [address], [place] [address] May, [facility] [address] [id number] [address] [place] [address], [place] [address] May, [facility] [address] [id number] [address] [place] [address], [place] [address] Mar, [facility] [address] [id number] [address] [place] [address], [place] [address] Mar, [facility] [address] [id number] [address] [place] [address], [place] [id number] 17 Feb, 2014 [facility] [address] [id number] [address] [place] [address], [place] [id number] 17 Feb, 2014 [facility] [address] [id number] [address] [place] [address], [place] [address] 11 Feb, 2014 [facility] [address] [id number] [address] [place] [address], [place] [address] 11 Feb, 2014 [facility] [address] [id number] [address] [place] [phone] October, [facility] [address] [id number] [address] [place] [id number] October, [facility] [address] [id number] [address] [place] [phone] October, [facility] [address] [id number] [address] [place] [id number] October, [facility] [address] [id number] [address] [place] [id number] Sep, [facility] [address] [id number] [address] [place] [id number] Sep, [facility] [address] [id number] [address] [place] [id number] Sep, [facility] [address] [id number] [address] [place] [phone] Sep, [facility] [address] [id number] [address] [place] [phone] Jul, [facility] [address] [id number] [address] [place] [phone] Jul, [facility] [address] [id number] [address] [place] [phone] Jun, [facility] [address] [id number] [address] [place] [phone] Jun, [facility] [address] [id number] [address] [place] [phone] May, [facility] [address] [id number] [address] [place] [id number] May, IMMUNIZATIONS No Known Immunizations SOCIAL HISTORY Never Assessed REASON FOR VISIT Malachi VIEIRA PLAN OF CARE VITAL SIGNS MEDICATIONS Unknown Medications RESULTS Name Result Date Reference Range ANGEL 2017-07-14 PROCEDURES Procedure Date Ordered Result Body Site No Charge Jul 14, 2017 INSTRUCTIONS MEDICATIONS ADMINISTERED No Known Medications MEDICAL (GENERAL) HISTORY Type Description Date Medical History fibromyalgia Medical History insomnia Medical History obesity Surgical History ganglion cyst removal 1996 Surgical History section 2003 Hospitalization History surgeries
--- OUTSIDE RECORDS SUMMARY | 2020-01-12 20:05 | XMS REPORT ---
Author Author Nani ANDERSON Organization [facility] Address [address] [place] [address] Care Team Providers Care [employer] Name Role Phone BRANDI ANDERSON Unavailable PROBLEMS Type Condition ICD9-CM Code VSU77-AV Code Onset Dates Condition S tatus SNOMED Code Problem Personal history of alcoholism F10.21 Active 509592926 Problem Fibromyalgia M79.7 Active 5292227 7 Problem Other chronic pain G89.29 Active 8 1166649 Problem Lumbago with sciatica, right side M54.41 Active 338651058765363 Problem Insomnia G47.00 Active 219110102 Problem Obesity E66.9 Active 799939119 Problem Lumbago with sciatica, left side M54.42 Active 887254517 Problem Chronic pain syndrome G89.4 Active [id number] ALLERGIES No Information ENCOUNTERS Encounter Location Date Diagnosis [facility] [id number] [place] [phone] Aug, Fibromyalgia M79.7 and BMI 5 0.0-59.9, adult Z68.43 [facility] [id number] [place] [phone] Aug, [facility] [id number] [place] [phone] Aug, [facility] [id number] [place] [phone] Jul, [facility] [id number] [place] [phone] Jul, Insomnia G47.00 [facility] [id number] [place] [phone] Jul, [facility] [id number] [place] [phone] Jul, [facility] [address] [id number] Jul, [facility] [address] [address] Jul, Fibromyalgia M79.7 [facility] [address] [phone] Jul, [facility] [address] [address] Jun, Chronic pain syndrome G89.4 and Fibromyalgia M79.7 [facility] [address] [address] Jun, Fibromyalgia M79.7 [facility] [address] [address] Jun, Bronchitis J40 ; Fibromyalgi a M79.7 ; Lumbago with sciatica, left side M54.42 ; Lumbago with sciatica, right side M54.41 ; Other chronic pain G89.29 and BMI 45.0-49.9, adult Z68.42 [facility] [id number] [place] [phone] Jun, Influenza-like illness R69 [facility] [id number] [place] [phone] Jun, [facility] [id number] [place] [phone] Jun, Fibromyalgia M79.7 [facility] [address] [address] May, Fibromyalgia M79.7 [facility] [id number] [place] [address] Apr, Insomnia G47.00 [facility] [id number] [place] [phone] Apr, [facility] [address] [facility] [id number] [address] [place] [phone] Apr, [facility] [address] [facility] [id number] [address] [place] [phone] Apr, Fibromyalgia M79.7 [facility] [address] [facility] [id number] [address] [place] [phone] 16 Mar, 2017 Encounter for immunization Z 23 [facility] [address] [facility] [id number] [address] [place] [phone] 10 Mar, 2017 Visit for TB skin test Z11.1 [facility] [address] [facility] [id number] [address] [place] [phone] 04 Mar, 2017 Fibromyalgia M79.7 [facility] [address] [facility] [id number] [address] [place] [phone] Feb, Fibromyalgia M79.7 [facility] [address] [facility] [id number] [address] [place] [phone] Feb, [facility] [address] [facility] [id number] [address] [place] [phone] Feb, Fibromyalgia M79.7 [facility] [address] [facility] [id number] [address] [place] [phone] Jan, Fibromyalgia M79.7 ; Obesity E66.9 ; Insomnia G47.00 and Chronic pain syndrome G89.4 [facility] [address] [facility] [id number] [address] [place] [phone] Jan, [facility] [address] [facility] [id number] [address] [place] [phone] Jan, [facility] [address] [facility] [id number] [address] [place] [phone] Dec, [facility] [address] [facility] [id number] [address] [place] [phone] Dec, [facility] [address] [id number] [address] [place] [phone] Dec, [facility] [address] [facility] [id number] [address] [place] [phone] Nov, Chronic pain syndrome G89.4 [facility] [address] [facility] [id number] [address] [place] [phone] October, Chronic pain syndrome G89.4 [facility] [address] [id number] [address] [place] [phone] October, Chronic pain syndrome G89.4 [facility] [address] [id number] [address] [place] [phone] October, [facility] [address] [facility] [id number] [address] [place] [phone] October, Chronic pain syndrome G89.4 [facility] [address] [facility] [id number] [address] [place] [phone] October, Chronic pain syndrome G89.4 and Fibromyalgia M79.7 [facility] [address] [facility] [id number] [address] [place] [phone] October, Fibromyalgia M79.7 and Chron ic pain syndrome G89.4 [facility] [address] [facility] [id number] [address] [place] [phone] Sep, Encounter for immunization Z 23 [facility] [address] [facility] [id number] [address] [place] [phone] Sep, [facility] [address] [facility] [id number] [address] [place] [phone] Sep, [facility] [address] [facility] [id number] [address] [place] [phone] Aug, Fibromyalgia M79.7 and Insom christo G47.00 [facility] [address] [facility] [id number] [address] [place] [phone] Aug, Obesity E66.9 ; Snoring R06. 83 ; Fibromyalgia M79.7 ; Insomnia G47.00 and Screening cholesterol level Z13.220 [facility] [address] [facility] [id number] [address] [place] [phone] Aug, Fibromyalgia M79.7 [facility] [address] [facility] [id number] [address] [place] [phone] Jul, Obesity E66.9 ; Personal his tory of alcoholism F10.21 and Fibromyalgia M79.7 [facility] [address] [facility] [id number] [address] [place] [phone] Jul, [facility] [address] [facility] [id number] [address] [place] [phone] Jun, Obesity E66.9 ; Chronic pain syndrome G89.4 ; Fibromyalgia M79.7 ; Insomnia G47.00 and Wellness examination Z00.00 [address] [id number] [place] [phone] Jun, Personal history of alcoholi sm F10.21 and Chronic pain syndrome G89.4 [facility] [address] [facility] [id number] [address] [place] [phone] Jun, [facility] [address] [facility] [id number] [address] [place] [phone] Jun, Fibromyalgia M79.7 [facility] [address] [facility] [id number] [address] [place] [phone] May, Fibromyalgia M79.7 [facility] [address] [facility] [id number] [address] [place] [phone] May, [facility] [address] [facility] [id number] [address] [place] [phone] Apr, Obesity E66.9 ; Fibromyalgia M79.7 ; Insomnia G47.00 and Personal history of alcoholism F10.21 [facility] [address] [facility] [id number] [address] [place] [phone] Apr, [facility] [address] [id number] [address] [place] [phone] Apr, [facility] [address] [id number] [address] [place] [phone] Mar, [facility] [address] [id number] [address] [place] [phone] Mar, [facility] [address] [id number] [address] [place] [phone] Feb, [facility] [address] [id number] [address] [place] [phone] Jan, [facility] [address] [id number] [address] [place] [phone] Dec, Obesity E66.9 ; Fibromyalgia M79.7 ; Personal history of alcoholism F10.21 and Insomnia G47.00 [facility] [address] [id number] [address] [place] [phone] Dec, Chronic pain syndrome G89.4 [facility] [address] [id number] [address] [place] [phone] Dec, [facility] [address] [facility] [id number] [address] [place] [phone] Dec, [facility] [address] [facility] [id number] [address] [place] [phone] Nov, [facility] [address] [facility] [id number] [address] [place] [phone] Nov, [facility] [address] [facility] [id number] [address] [place] [phone] Nov, Fibromyalgia M79.7 ; Obesity E66.9 ; Personal history of alcoholism F10.21 ; Insomnia G47.00 and Chronic pain syndrome G89.4 [facility] [address] [id number] [address] [place] [phone] Nov, Fibromyalgia M79.7 [facility] [address] [facility] [id number] [address] [place] [phone] October, Fibromyalgia M79.7 [facility] [address] [facility] [id number] [address] [place] [phone] October, Obesity E66.9 ; Fibromyalgia M79.7 ; Personal history of alcoholism F10.21 and Insomnia G47.00 [facility] [address] [facility] [id number] [address] [place] [phone] Sep, [facility] [address] [facility] [id number] [address] [place] [phone] Aug, Fibromyalgia M79.7 ; Obesity E66.9 ; Personal history of alcoholism F10.21 and Insomnia G47.00 [facility] [address] [facility] [id number] [address] [place] [phone] Aug, [facility] [address] [id number] [address] [place] [phone] Jul, [facility] [id number] [address] [place] [phone] Jun, [facility] [id number] [address] [place] [phone] Jun, [facility] [address] [phone] May, [facility] [id number] [place] [phone] May, Fibromyalgia M79.7 ; Obesity E66.9 and Insomnia G47.00 [facility] [address] [facility] [id number] [address] [place] [phone] May, [facility] [id number] [place] [phone] May, Fibromyalgia M79.7 ; Persona l history of alcoholism F10.21 ; Insomnia G47.00 and Obesity E66.9 [facility] [address] [facility] [id number] [address] [place] [phone] Apr, [facility] [id number] [place] [phone] Apr, Fibromyalgia M79.7 ; Obesity E66.9 ; Insomnia G47.00 ; Personal history of alcoholism F10.21 and Frequent falls R29.6 [address] [id number] [place] [phone] Apr, Obesity E66.9 ; Fibromyalgia M79.7 and Insomnia G47.00 [address] [address] [id number] Mar, [address] [address] [address] Mar, [address] [address] [id number] Mar, [place] [address] [address] Mar, Obesity E66.9 ; Fibromyalgia M79.7 and Personal history of alcoholism F10.21 [place] [address] [phone] Feb, [place] [address] [phone] Feb, Other malaise and fatigue 78 0.79 ; Abnormal weight gain 783.1 and Fibromyalgia 729.1 [place] [id number] [place] [phone] Jan, [place] [id number] [address] [place] [phone] Dec, [place] [address] [id number] Dec, Fibromyalgia 729.1 and Abnor mal weight gain 783.1 [place] [id number] [place] [phone] Dec, Unspecified myalgia and myos itis 729.1 ; Abnormal weight gain 783.1 and Fibromyalgia 729.1 [facility] [address] [id number] [address] [place] [phone] Nov, [facility] [address] [id number] [address] [place] [phone] Nov, Other malaise and fatigue 78 0.79 ; Unspecified myalgia and myositis 729.1 and Abnormal weight gain 783.1 [facility] [address] [id number] [address] [place] [phone] Nov, [facility] [address] [id number] [address] [place] [phone] Nov, [facility] [address] [id number] [address] [place] [phone] October, [facility] [address] [id number] [address] [place] [phone] October, Unspecified myalgia and myos itis 729.1 and Scabies 133.0 [facility] [address] [id number] [address] [place] [phone] October, [facility] [address] [id number] [address] [place] [phone] Sep, [facility] [address] [id number] [address] [place] [phone] Sep, [facility] [address] [id number] [address] [place] [phone] Aug, [facility] [address] [id number] [address] [place] [phone] Aug, [facility] [address] [id number] [address] [place] [phone] Aug, [facility] [address] [facility] [id number] [address] [place] [phone] Aug, [facility] [address] [id number] [address] [place] [phone] 12 Aug, 2014 [facility] [address] [id number] [address] [place] [address], [place] [phone] 12 Aug, 2014 [facility] [address] [id number] [address] [place] [address], [place] [phone] Aug, [facility] [address] [id number] [address] [place] [address], [place] [id number] 11 Aug, 2014 [facility] [address] [id number] [address] [place] [address], [place] [id number] 10 Aug, 2014 [facility] [address] [id number] [address] [place] [address], [place] [id number] 10 Aug, 2014 [facility] [address] [id number] [address] [place] [address], [place] [address] May, [facility] [address] [id number] [address] [place] [address], [place] [id number] May, [facility] [address] [id number] [address] [place] [address], [place] [address] Mar, [facility] [address] [id number] [address] [place] [address], [place] [address] Mar, [facility] [address] [id number] [address] [place] [address], [place] [address] Feb, [facility] [address] [id number] [address] [place] [address], [place] [address] Feb, [facility] [address] [id number] [address] [place] [address], [place] [address] Feb, [facility] [address] [id number] [address] [place] [address], [place] [phone] Feb, [facility] [address] [id number] [address] [place] [address], [place] [id number] October, [facility] [address] [id number] [address] [place] [address], [place] [address] October, [facility] [address] [id number] [address] [place] [phone] October, [facility] [address] [id number] [address] [place] [phone] October, [facility] [address] [id number] [address] [place] [phone] Sep, [facility] [address] [id number] [address] [place] [phone] Sep, [facility] [address] [id number] [address] [place] [phone] Sep, [facility] [address] [id number] [address] [place] [phone] Sep, [facility] [address] [id number] [address] [place] [phone] Jul, [facility] [address] [id number] [address] [place] [id number] Jul, [facility] [address] [id number] [address] [place] [phone] Jun, [facility] [address] [id number] [address] [place] [phone] Jun, [facility] [address] [id number] [address] [place] [phone] May, [facility] [address] [id number] [address] [place] [phone] May, IMMUNIZATIONS No Known Immunizations SOCIAL HISTORY Never Assessed REASON FOR VISIT Vicoprofen 02/24 PLAN OF CARE VITAL SIGNS MEDICATIONS Medication [...]
--- OUTSIDE RECORDS SUMMARY | 2020-01-12 20:05 | XMS REPORT ---
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 Name Role Phone HUBER MARLEY Unavailable PROBLEMS Type Condition ICD9-CM Code YKA94-NR Code Onset Dates Condition S tatus SNOMED Code Problem Personal history of alcoholism F10.21 Active 026640689 Problem Fibromyalgia M79.7 Active 0014642 7 Problem Other chronic pain G89.29 Active 8 4045058 Problem Lumbago with sciatica, right side M54.41 Active 940234945469785 Problem Insomnia G47.00 Active 393608123 Problem Obesity E66.9 Active 357423483 Problem Lumbago with sciatica, left side M54.42 Active 336642837 Problem Chronic pain syndrome G89.4 Active 655872795 ALLERGIES Substance Reaction Event Type Date Status Tramadol HCl rash Drug Allergy Jun, Active Penicillin V Potassium Unknown Drug Allergy Jun, Activ e Bactrim Unknown Drug Allergy Jun, Active Clindamycin Unknown Drug Allergy Jun, Active ENCOUNTERS Encounter Location Date Diagnosis [facility] [address] [facility] [id number] [place] [address] Dec, [facility] [address] [facility] [id number] [place] [address] Nov, [facility] [address] [facility] [id number] [place] [address] Aug, Fibromyalgia M79.7 and BMI 5 0.0-59.9, adult Z68.43 [facility] [address] [facility] [id number] [place] [address] Aug, [facility] [address] [facility] [id number] [place] [address] Aug, [facility] [address] [facility] [id number] [place] [address] Jul, [facility] [address] [address] Jul, Insomnia G47.00 [facility] [address] [facility] [id number] [place] [address] Jul, [facility] [id number] [place] [address] Jul, [facility] [address] [facility] [id number] [place] [address] Jul, [facility] [address] [address] Jul, Fibromyalgia M79.7 [facility] [address] [address] Jul, [facility] [address] [address] Jun, Chronic pain syndrome G89.4 and Fibromyalgia M79.7 [facility] [address] [address] Jun, Fibromyalgia M79.7 [facility] [address] [address] Jun, Bronchitis J40 ; Fibromyalgi a M79.7 ; Lumbago with sciatica, left side M54.42 ; Lumbago with sciatica, right side M54.41 ; Other chronic pain G89.29 and BMI 45.0-49.9, adult Z68.42 [facility] [id number] [address] [place] [address] Jun, Influenza-like illness R69 [facility] [address] [id number] [address] [place] [address] Jun, [facility] [id number] [place] [address] Jun, Fibromyalgia M79.7 [facility] [address] [facility] [id number] [place] [address] May, Fibromyalgia M79.7 [facility] [address] [facility] [id number] [place] [address] Apr, Insomnia G47.00 [facility] [address] [facility] [id number] [place] [address] Apr, [facility] [address] [facility] [id number] [place] [address] Apr, [facility] [address] [id number] [address] [place] [address] Apr, Fibromyalgia M79.7 [facility] [address] [id number] [address] [place] [address] 16 Mar, 2017 Encounter for immunization Z 23 [facility] [address] [facility] [id number] [place] [address] 10 Mar, 2017 Visit for TB skin test Z11.1 [facility] [address] [id number] [address] [place] [address] 04 Mar, 2017 Fibromyalgia M79.7 [facility] [address] [id number] [address] [place] [address] Feb, Fibromyalgia M79.7 [facility] [address] [facility] [id number] [place] [address] Feb, [facility] [address] [id number] [address] [place] [address] Feb, Fibromyalgia M79.7 [facility] [address] [id number] [address] [place] [address] Jan, Fibromyalgia M79.7 ; Obesity E66.9 ; Insomnia G47.00 and Chronic pain syndrome G89.4 [facility] [address] [id number] [address] [place] [address] Jan, [facility] [address] [id number] [address] [place] [address] Jan, [facility] [address] [id number] [address] [place] [address] Dec, [facility] [address] [id number] [address] [place] [address] Dec, [facility] [address] [id number] [address] [place] [address] Dec, [facility] [address] [id number] [address] [place] [address] Nov, Chronic pain syndrome G89.4 [facility] [address] [id number] [address] [place] [address] October, Chronic pain syndrome G89.4 [facility] [address] [id number] [address] [place] [address] October, Chronic pain syndrome G89.4 [facility] [address] [id number] [address] [place] [address] October, [facility] [address] [id number] [address] [place] [address] October, Chronic pain syndrome G89.4 [facility] [address] [id number] [address] [place] [address] October, Chronic pain syndrome G89.4 and Fibromyalgia M79.7 [facility] [address] [id number] [address] [place] [address] October, Fibromyalgia M79.7 and Chron ic pain syndrome G89.4 [facility] [address] [id number] [address] [place] [address] Sep, Encounter for immunization Z 23 [facility] [address] [id number] [address] [place] [address] Sep, [facility] [id number] [address] [place] [address] Sep, [facility] [id number] [place] [address] Aug, Fibromyalgia M79.7 and Insom christo G47.00 [facility] [id number] [address] [place] [address] Aug, Obesity E66.9 ; Snoring R06. 83 ; Fibromyalgia M79.7 ; Insomnia G47.00 and Screening cholesterol level Z13.220 [facility] [address] [address] Aug, Fibromyalgia M79.7 [place] [address] [address] Jul, Obesity E66.9 ; Personal his tory of alcoholism F10.21 and Fibromyalgia M79.7 [facility] [address] [address] Jul, [facility] [address] [address] Jun, Obesity E66.9 ; Chronic pain syndrome G89.4 ; Fibromyalgia M79.7 ; Insomnia G47.00 and Wellness examination Z00.00 [facility] [address] [address] Jun, Personal history of alcoholi sm F10.21 and Chronic pain syndrome G89.4 [facility] [address] [id number] [address] [place] [address] Jun, [facility] [address] [address] Jun, Fibromyalgia M79.7 [facility] [id number] [address] [place] [address] May, Fibromyalgia M79.7 [facility] [address] [address] May, [facility] [address] [id number] [address] [place] [address] Apr, Obesity E66.9 ; Fibromyalgia M79.7 ; Insomnia G47.00 and Personal history of alcoholism F10.21 [facility] [address] [id number] [address] [place] [address] Apr, [facility] [address] [id number] [address] [place] [address] Apr, [facility] [address] [id number] [address] [place] [address] Mar, [facility] [address] [id number] [address] [place] [address] Mar, [facility] [address] [facility] [id number] [place] [address] Feb, [facility] [address] [id number] [address] [place] [phone] Jan, [facility] [address] [facility] [id number] [place] [address] Dec, Obesity E66.9 ; Fibromyalgia M79.7 ; Personal history of alcoholism F10.21 and Insomnia G47.00 [facility] [address] [facility] [id number] [place] [address] Dec, Chronic pain syndrome G89.4 [facility] [address] [id number] [address] [place] [address] Dec, [facility] [address] [facility] [id number] [place] [address] Dec, [facility] [address] [facility] [id number] [place] [address] Nov, [facility] [address] [facility] [id number] [place] [address] Nov, [facility] [address] [facility] [id number] [place] [address] Nov, Fibromyalgia M79.7 ; Obesity E66.9 ; Personal history of alcoholism F10.21 ; Insomnia G47.00 and Chronic pain syndrome G89.4 [facility] [address] [facility] [id number] [place] [address] 10 Nov, 2015 Fibromyalgia M79.7 [facility] [address] [id number] [address] [place] [address] October, Fibromyalgia M79.7 [facility] [id number] [place] [address] October, Obesity E66.9 ; Fibromyalgia M79.7 ; Personal history of alcoholism F10.21 and Insomnia G47.00 [facility] [id number] [address] [place] [address] Sep, [facility] [id number] [place] [address] Aug, Fibromyalgia M79.7 ; Obesity E66.9 ; Personal history of alcoholism F10.21 and Insomnia G47.00 [facility] [id number] [address] [place] [address] Aug, [facility] [id number] [address] [place] [address] Jul, [facility] [id number] [address] [place] [address] Jun, [facility] [id number] [address] [place] [address] Jun, [facility] [address] [facility] [id number] [place] [address] May, [facility] [id number] [address] [place] [address] May, Fibromyalgia M79.7 ; Obesity E66.9 and Insomnia G47.00 [facility] [id number] [address] [place] [address] May, [facility] [address] [id number] May, Fibromyalgia M79.7 ; Persona l history of alcoholism F10.21 ; Insomnia G47.00 and Obesity E66.9 [place] [address] [address] Apr, [place] [address] [address] Apr, Fibromyalgia M79.7 ; Obesity E66.9 ; Insomnia G47.00 ; Personal history of alcoholism F10.21 and Frequent falls R29.6 [place] [address] [address] Apr, Obesity E66.9 ; Fibromyalgia M79.7 and Insomnia G47.00 [place] [address] [address] Mar, [place] [address] [address] Mar, [place] [address] [address] Mar, [place] [address] [address] Mar, Obesity E66.9 ; Fibromyalgia M79.7 and Personal history of alcoholism F10.21 [place] [address] [address] Feb, [place] [address] [address] Feb, Other malaise and fatigue 78 0.79 ; Abnormal weight gain 783.1 and Fibromyalgia 729.1 [place] [address] [address] Jan, [place] [address] [address] Dec, [facility] [address] [id number] [address] [place] [address] Dec, Fibromyalgia 729.1 and Abnor mal weight gain 783.1 [facility] [address] [facility] [id number] [place] [address] Dec, Unspecified myalgia and myos itis 729.1 ; Abnormal weight gain 783.1 and Fibromyalgia 729.1 [facility] [address] [id number] [address] [place] [address] Nov, [facility] [address] [facility] [id number] [place] [address] Nov, Other malaise and fatigue 78 0.79 ; Unspecified myalgia and myositis 729.1 and Abnormal weight gain 783.1 [facility] [address] [facility] [id number] [place] [address] Nov, [facility] [address] [facility] [id number] [place] [address] Nov, [facility] [address] [facility] [id number] [place] [address] October, [facility] [address] [facility] [id number] [place] [address] October, Unspecified myalgia and myos itis 729.1 and Scabies 133.0 [facility] [address] [facility] [id number] [place] [address] October, [facility] [address] [facility] [id number] [place] [address] Sep, [facility] [address] [facility] [id number] [place] [address] Sep, [facility] [address] [facility] [id number] [place] [address] Aug, [facility] [place] [facility] [address] [id number] [facility] [place] [address] 17 Aug, 2014 [facility] [place] [facility] [address] [id number] [address] [place] [address], [place] [address] 17 Aug, 2014 [facility] [place] [facility] [address] [id number] [address] [place] [address], [place] [address] 17 Aug, 2014 [facility] [place] [facility] [address] [id number] [address] [place] [address], [place] [address] 12 Aug, 2014 [facility] [place] [facility] [address] [id number] [address] [place] [address], [place] [address] 12 Aug, 2014 [facility] [place] [facility] [address] [id number] [address] [place] [address], [place] [address] 11 Aug, 2014 [facility] [place] [facility] [address] [id number] [address] [place] [address], [place] [address] 11 Aug, 2014 [facility] [place] [facility] [address] [id number] [address] [place] [address], [place] [address] 10 Aug, 2014 [facility] [place] [facility] [address] [id number] [address] [place] [address], [place] [address] 10 Aug, 2014 [facility] [place] [facility] [address] [id number] [address] [place] [address], [place] [address] 04 May, 2014 [facility] [place] [facility] [address] [id number] [address] [place] [address], [place] [address] 04 May, 2014 [facility] [place] [facility] [address] [id number] [address] [place] [address], [place] [address] 07 Mar, 2014 [facility] [place] [facility] [address] [id number] [address] [place] [address], [place] [address] 07 Mar, 2014 [facility] [place] [facility] [address] [id number] [address] [place] [address], [place] [address] 17 Feb, 2014 [facility] [place] [facility] [address] [id number] [address] [place] [address], [place] [address] 17 Feb, 2014 [facility] [place] [facility] [address] [id number] [address] [place], [place] [address] [address] Feb, [facility] [address] [id number] [address] [place] [address], [place] [address] Feb, [facility] [address] [id number] [address] [place] [address] October, [facility] [address] [id number] [address] [place] [address] October, [facility] [address] [id number] [address] [place] [address] October, [facility] [address] [id number] [address] [place] [address], [place] [address] October, [facility] [address] [id number] [address] [place] [address] Sep, [facility] [address] [id number] [address] [place] [address] Sep, [facility] [address] [id number] [address] [place] [address] Sep, [facility] [address] [id number] [address] [place] [phone] Sep, [facility] [address] [id number] [address] [place] [address] Jul, [facility] [address] [id number] [address] [place] [address] Jul, [facility] [address] [id number] [address] [place] [address] Jun, [facility] [address] [id number] [address] [place] [address] Jun, [facility] [address] [id number] [address] [place] [address] May, [facility] [address] [id number] [address] [place] [address] May, IMMUNIZATIONS No Known Immunizations SOCIAL HISTORY Never Assessed REASON FOR VISIT Transition of Care- Body aches, fever, sore throat, since Last Thursday- Neeru ramachandran RN PLAN OF CARE Activity Details Follow Up 3 Months Reason: VITAL SIGNS Height 64 in 2017-07-07 Weight 290 lbs 2017-07-07 Temperature 98.4 degrees Fahrenheit 2017-07-07 Heart Rate 98 bpm 2017-07-07 Respiratory Rate 24 2017-07-07 BMI 49.77 kg/m2 2017-07-07 Blood pressure systolic 122 mmHg 2017-07-07 Blood pressure diastolic 78 mmHg 2017-07-07 MEDICATIONS Medication Instructions Dosage Frequency Start Date End Date Duration S tatus Promethazine-Codeine 6.25-10 MG/5ML Orally every 4 hrs 1-2 tsp as n eeded 4h Jun, Active Ambien 10 mg Orally Once a day 1 tablet at bedtime as needed 24h Active PredniSONE 50 mg Orally Once a day 1 tablet 24h Jun, Jun, 05 days Active Zithromax 250 MG Orally Once a day 2 tablets on the rst day, then 1 tablet daily for 4 days 24h Jun, Jun, 5 day(s) Active Hydrocodone-Ibuprofen 7.5-200 MG Orally 3 times a day 1 tablet as n eeded 8h Jun, 28 days Active Duloxetine HCl 60 MG TAKE ONE CAPSULE BY MOUTH ONCE DAILY 30 Active Lyrica 75 MG TAKE ONE CAPSULE BY MOUTH ONCE DAILY 30 Active RESULTS No Results PROCEDURES No Known procedures INSTRUCTIONS MEDICATIONS ADMINISTERED No Known Medications MEDICAL (GENERAL) HISTORY Type Description Date Medical History fibromyalgia Medical History insomnia Medical History obesity Surgical History ganglion cyst removal 1996 Surgical History section 2004 Hospitalization History surgeries
--- OUTSIDE RECORDS SUMMARY | 2020-01-12 20:05 | XMS REPORT ---
Author Author Nani Smith Organization [facility] Address [address] [place] [address] Care Team Providers Care Overedger Name Role Phone MARY Smith Unavailable PROBLEMS Type Condition ICD9-CM Code ZWL66-QI Code Onset Dates Condition S tatus SNOMED Code Problem Personal history of alcoholism F10.21 Active 751477632 Problem Fibromyalgia M79.7 Active 4025824 7 Problem Other chronic pain G89.29 Active 8 4297049 Problem Lumbago with sciatica, right side M54.41 Active 080348397847076 Problem Insomnia G47.00 Active 768941700 Problem Obesity E66.9 Active 195032841 Problem Lumbago with sciatica, left side M54.42 Active 947939899 Problem Chronic pain syndrome G89.4 Active [id number] ALLERGIES No Information ENCOUNTERS Encounter Location Date Diagnosis [facility] [id number] [place] [phone] Aug, [facility] [id number] [place] [address] Jul, [facility] [id number] [place] [address] Jul, Insomnia G47.00 [facility] [id number] [place] [address] Jul, [facility] [id number] [place] [address] Jul, [facility] [id number] [place] [address] Jul, [facility] [id number] [place] [address] Jul, Fibromyalgia M79.7 [facility] [address] [address] Jul, [facility] [address] [address] Jun, Chronic pain syndrome G89.4 and Fibromyalgia M79.7 [facility] [address] [address] Jun, Fibromyalgia M79.7 [facility] [address] [address] Jun, Bronchitis J40 ; Fibromyalgi a M79.7 ; Lumbago with sciatica, left side M54.42 ; Lumbago with sciatica, right side M54.41 ; Other chronic pain G89.29 and BMI 45.0-49.9, adult Z68.42 [facility] [address] [address] Jun, Influenza-like illness R69 [facility] [address] [address] Jun, [facility] [address] [address] Jun, Fibromyalgia M79.7 [facility] [address] [address] May, Fibromyalgia M79.7 [facility] [address] [address] Apr, Insomnia G47.00 [facility] [address] [address] Apr, [facility] [address] [address] Apr, [facility] [address] [address] Apr, Fibromyalgia M79.7 [facility] [address] [id number] [address] [place] [address] 16 Mar, 2017 Encounter for immunization Z 23 [facility] [address] [id number] [address] [place] [id number] 10 Mar, 2017 Visit for TB skin test Z11.1 [facility] [address] [id number] [address] [place] [id number] 04 Mar, 2017 Fibromyalgia M79.7 [facility] [address] [id number] [address] [place] [id number] 12 Feb, 2017 Fibromyalgia M79.7 [facility] [address] [id number] [address] [place] [address] Feb, [facility] [address] [facility] [id number] [address] [place] [address] Feb, Fibromyalgia M79.7 [facility] [address] [facility] [id number] [address] [place] [id number] Jan, Fibromyalgia M79.7 ; Obesity E66.9 ; Insomnia G47.00 and Chronic pain syndrome G89.4 [facility] [address] [id number] [address] [place] [address] Jan, [facility] [address] [facility] [id number] [address] [place] [address] Jan, [facility] [address] [id number] [address] [place] [phone] Dec, [facility] [address] [id number] [address] [place] [id number] Dec, [facility] [address] [id number] [address] [place] [phone] Dec, [facility] [address] [facility] [id number] [address] [place] [id number] Nov, Chronic pain syndrome G89.4 [facility] [address] [id number] [address] [place] [address] October, Chronic pain syndrome G89.4 [facility] [address] [facility] [id number] [address] [place] [phone] October, Chronic pain syndrome G89.4 [facility] [address] [facility] [id number] [address] [place] [address] October, [facility] [address] [facility] [id number] [address] [place] [id number] October, Chronic pain syndrome G89.4 [facility] [address] [facility] [id number] [address] [place] [address] October, Chronic pain syndrome G89.4 and Fibromyalgia M79.7 [facility] [address] [facility] [id number] [address] [place] [id number] October, Fibromyalgia M79.7 and Chron ic pain syndrome G89.4 [facility] [id number] [place] [id number] Sep, Encounter for immunization Z 23 [facility] [id number] [address] [place] [address] Sep, [facility] [id number] [address] [place] [address] Sep, [facility] [id number] [place] [address] Aug, Fibromyalgia M79.7 and Insom christo G47.00 [facility] [address] [facility] [id number] [address] [place] [address] Aug, Obesity E66.9 ; Snoring R06. 83 ; Fibromyalgia M79.7 ; Insomnia G47.00 and Screening cholesterol level Z13.220 [facility] [address] [facility] [id number] [address] [place] [address] Aug, Fibromyalgia M79.7 [facility] [id number] [address] [place] [address] Jul, Obesity E66.9 ; Personal his tory of alcoholism F10.21 and Fibromyalgia M79.7 [facility] [address] [facility] [id number] [address] [place] [address] Jul, [facility] [address] [facility] [id number] [address] [place] [address] Jun, Obesity E66.9 ; Chronic pain syndrome G89.4 ; Fibromyalgia M79.7 ; Insomnia G47.00 and Wellness examination Z00.00 [facility] [address] [facility] [id number] [address] [place] [address] Jun, Personal history of alcoholi sm F10.21 and Chronic pain syndrome G89.4 [facility] [address] [facility] [id number] [address] [place] [address] Jun, [facility] [address] [facility] [id number] [address] [place] [address] Jun, Fibromyalgia M79.7 [facility] [address] [facility] [id number] [address] [place] [address] May, Fibromyalgia M79.7 [facility] [address] [facility] [id number] [address] [place] [id number] May, [facility] [address] [facility] [id number] [address] [place] [address] Apr, Obesity E66.9 ; Fibromyalgia M79.7 ; Insomnia G47.00 and Personal history of alcoholism F10.21 [facility] [address] [facility] [id number] [address] [place] [id number] Apr, [facility] [address] [facility] [id number] [address] [place] [phone] Apr, [facility] [address] [facility] [id number] [address] [place] [phone] Mar, [facility] [address] [facility] [id number] [address] [place] [id number] Mar, [facility] [address] [id number] [address] [place] [phone] Feb, [facility] [address] [id number] [address] [place] [address] Jan, [facility] [address] [id number] [address] [place] [address] Dec, Obesity E66.9 ; Fibromyalgia M79.7 ; Personal history of alcoholism F10.21 and Insomnia G47.00 [facility] [address] [id number] [address] [place] [address] Dec, Chronic pain syndrome G89.4 [facility] [address] [id number] [address] [place] [phone] Dec, [facility] [address] [facility] [id number] [address] [place] [phone] Dec, [facility] [address] [id number] [address] [place] [id number] Nov, [facility] [address] [facility] [id number] [address] [place] [id number] Nov, [facility] [address] [id number] [address] [place] [address] Nov, Fibromyalgia M79.7 ; Obesity E66.9 ; Personal history of alcoholism F10.21 ; Insomnia G47.00 and Chronic pain syndrome G89.4 [facility] [address] [id number] [address] [place] [address] Nov, Fibromyalgia M79.7 [facility] [address] [id number] [address] [place] [address] October, Fibromyalgia M79.7 [facility] [address] [facility] [id number] [address] [place] [address] October, Obesity E66.9 ; Fibromyalgia M79.7 ; Personal history of alcoholism F10.21 and Insomnia G47.00 [facility] [address] [address] Sep, [facility] [address] [id number] Aug, Fibromyalgia M79.7 ; Obesity E66.9 ; Personal history of alcoholism F10.21 and Insomnia G47.00 [facility] [address] [address] Aug, [facility] [id number] [place] [address] Jul, [facility] [id number] [place] [phone] Jun, [facility] [address] [address] Jun, [facility] [address] [address] May, [facility] [address] [address] May, Fibromyalgia M79.7 ; Obesity E66.9 and Insomnia G47.00 [facility] [address] [address] May, [facility] [address] [address] May, Fibromyalgia M79.7 ; Persona l history of alcoholism F10.21 ; Insomnia G47.00 and Obesity E66.9 [facility] [address] [address] Apr, [facility] [address] [address] Apr, Fibromyalgia M79.7 ; Obesity E66.9 ; Insomnia G47.00 ; Personal history of alcoholism F10.21 and Frequent falls R29.6 [facility] [address] [address] Apr, Obesity E66.9 ; Fibromyalgia M79.7 and Insomnia G47.00 [address] [address] Mar, [facility] [id number] [place] [address] Mar, [address] [address] [address] Mar, [facility] [id number] [place] [address] Mar, Obesity E66.9 ; Fibromyalgia M79.7 and Personal history of alcoholism F10.21 [place] [address] [address] Feb, [place] [address] [address] Feb, Other malaise and fatigue 78 0.79 ; Abnormal weight gain 783.1 and Fibromyalgia 729.1 [address] [place] [address] [address] Jan, [place] [address] [address] Dec, [place] [address] [address] Dec, Fibromyalgia 729.1 and Abnor mal weight gain 783.1 [place] [id number] [place] [address] Dec, Unspecified myalgia and myos itis 729.1 ; Abnormal weight gain 783.1 and Fibromyalgia 729.1 [place] [id number] [place] [address] Nov, [place] [id number] [place] [address] 10 [place], 2015 Other malaise and fatigue 78 0.79 ; Unspecified myalgia and myositis 729.1 and Abnormal weight gain 783.1 [facility] [address] [id number] [address] [place] [address] Nov, [facility] [address] [id number] [address] [place] [phone] Nov, [facility] [address] [id number] [address] [place] [id number] October, [facility] [address] [id number] [address] [place] [address] October, Unspecified myalgia and myos itis 729.1 and Scabies 133.0 [facility] [address] [id number] [address] [place] [id number] October, [facility] [address] [id number] [address] [place] [address] Sep, [facility] [address] [id number] [address] [place] [address] Sep, [facility] [address] [id number] [address] [place] [phone] Aug, [facility] [address] [id number] [address] [place] [address] Aug, [facility] [address] [id number] [address] [place] [address] Aug, [facility] [address] [id number] [address] [place] [address] Aug, [facility] [address] [id number] [address] [place] [address] Aug, [facility] [address] [id number] [address] [place] [address] Aug, [facility] [address] [id number] [address] [place] [address] Aug, [facility] [address] [id number] [address] [place] [address], [place] [address] Aug, [facility] [address] [id number] [address] [place] [address], [place] [address] Aug, [facility] [address] [id number] [address] [place] [address], [place] [address] Aug, [facility] [address] [id number] [address] [place] [address], [place] [address] May, [facility] [address] [id number] [address] [place] [address], [place] [address] May, [facility] [address] [id number] [address] [place] [address], [place] [address] Mar, [facility] [address] [id number] [address] [place] [address], [place] [address] Mar, [facility] [address] [id number] [address] [place] [address], [place] [address] Feb, [facility] [address] [id number] [address] [place] [address], [place] [address] Feb, [facility] [address] [id number] [address] [place] [address], [place] [address] Feb, [facility] [address] [id number] [address] [place] [address], [place] [address] Feb, [facility] [address] [id number] [address] [place] [address], [place] [address] October, [facility] [address] [id number] [address] [place] [address], [place] [address] October, [facility] [address] [id number] [address] [place] [address], [place] [address] October, [facility] [address] [id number] [address] [place] [address], [place] [address] October, [facility] [address] [id number] [address] [place] [address], [place] [address] Sep, [facility] [address] [id number] [address] [place] [id number] Sep, [facility] [address] [id number] [address] [place] [phone] Sep, [facility] [address] [id number] [address] [place] [phone] Sep, [facility] [address] [id number] [address] [place] [phone] Jul, [facility] [address] [id number] [address] [place] [address] Jul, [facility] [address] [id number] [address] [place] [phone] Jun, [facility] [address] [id number] [address] [place] [phone] Jun, [facility] [address] [id number] [address] [place] [address] May, [facility] [address] [id number] [address] [place] [address] May, IMMUNIZATIONS No Known Immunizations SOCIAL HISTORY Never Assessed REASON FOR VISIT Controlled Med Refill PLAN OF CARE VITAL SIGNS MEDICATIONS Medication Instructions Dosage Frequency Start Date End Date Duration S tatus Hydrocodone-Ibuprofen 7.5-200 MG Orally 3 times a day 1 tablet as n eeded 8h Nov, 28 days Active RESULTS No Results PROCEDURES No Known procedures INSTRUCTIONS MEDICATIONS ADMINISTERED No Known Medications MEDICAL (GENERAL) HISTORY Type Description Date Medical History fibromyalgia Medical History insomnia Medical History obesity Surgical History ganglion cyst removal 1996 Surgical History section 2004 Hospitalization History surgeries
--- OUTSIDE RECORDS SUMMARY | 2020-01-12 20:05 | XMS REPORT ---
Author Author Nani MARLEY Organization [facility] Address [address] [place] [address] Care Team Providers Care Solar Sales Associate Name Role Phone HUBER MARLEY Unavailable PROBLEMS Type Condition ICD9-CM Code XFN07-YG Code Onset Dates Condition S tatus SNOMED Code Problem Personal history of alcoholism F10.21 Active 298317922 Problem Fibromyalgia M79.7 Active 1183602 7 Problem Other chronic pain G89.29 Active 8 5352490 Problem Lumbago with sciatica, right side M54.41 Active 293326186431571 Problem Insomnia G47.00 Active 584166361 Problem Obesity E66.9 Active 222280513 Problem Lumbago with sciatica, left side M54.42 Active 996039407 Problem Chronic pain syndrome G89.4 Active 448060342 ALLERGIES No Information ENCOUNTERS Encounter Location Date Diagnosis [facility] [address] [facility] [id number] [address] [place] [phone] Dec, [facility] [address] [facility] [id number] [address] [place] [id number] Nov, [facility] [address] [facility] [id number] [address] [place] [address] Aug, Fibromyalgia M79.7 and BMI 5 0.0-59.9, adult Z68.43 [facility] [address] [facility] [id number] [address] [place] [address] Aug, [facility] [address] [facility] [id number] [address] [place] [address] Aug, [facility] [address] [facility] [id number] [address] [place] [address] Jul, [facility] [address] [facility] [id number] [address] [place] [address] Jul, Insomnia G47.00 [facility] [address] [address] Jul, [facility] [address] [place] [id number] [place] [address] Jul, [facility] [address] [address] Jul, [facility] [address] [address] Jul, Fibromyalgia M79.7 [facility] [address] [address] Jul, [facility] [address] [address] Jun, Chronic pain syndrome G89.4 and Fibromyalgia M79.7 [facility] [address] [address] Jun, Fibromyalgia M79.7 [facility] [address] [address] Jun, Bronchitis J40 ; Fibromyalgi a M79.7 ; Lumbago with sciatica, left side M54.42 ; Lumbago with sciatica, right side M54.41 ; Other chronic pain G89.29 and BMI 45.0-49.9, adult Z68.42 [facility] [address] [place] [id number] [address] [place] [address] Jun, Influenza-like illness R69 [facility] [address] [address] Jun, [facility] [address] [address] Jun, Fibromyalgia M79.7 [facility] [address] [address] May, Fibromyalgia M79.7 [facility] [address] [facility] [id number] [address] [place] [address] Apr, Insomnia G47.00 [facility] [address] [facility] [id number] [address] [place] [address] Apr, [facility] [address] [facility] [id number] [address] [place] [address] Apr, [facility] [address] [facility] [id number] [address] [place] [address] Apr, Fibromyalgia M79.7 [facility] [address] [id number] [place] [address] Mar, Encounter for immunization Z 23 [facility] [address] [place] [id number] [place] [phone] 10 Mar, 2017 Visit for TB skin test Z11.1 [facility] [address] [place] [id number] [address] [place] [address] Mar, Fibromyalgia M79.7 [facility] [address] [place] [id number] [address] [place] [address] Feb, Fibromyalgia M79.7 [facility] [address] [place] [id number] [address] [place] [address] Feb, [facility] [id number] [place] [address] Feb, Fibromyalgia M79.7 [facility] [address] [facility] [id number] [address] [place] [address] Jan, Fibromyalgia M79.7 ; Obesity E66.9 ; Insomnia G47.00 and Chronic pain syndrome G89.4 [facility] [address] [facility] [id number] [address] [place] [address] Jan, [facility] [address] [place] [id number] [address] [place] [address] Jan, [facility] [address] [id number] [address] [place] [address] Dec, [facility] [address] [id number] [address] [place] [address] Dec, [facility] [address] [id number] [address] [place] [address] Dec, [facility] [address] [facility] [id number] [address] [place] [address] Nov, Chronic pain syndrome G89.4 [facility] [address] [id number] [address] [place] [address] October, Chronic pain syndrome G89.4 [facility] [address] [id number] [address] [place] [phone] October, Chronic pain syndrome G89.4 [facility] [address] [id number] [address] [place] [address] October, [facility] [address] [id number] [address] [place] [address] October, Chronic pain syndrome G89.4 [facility] [address] [id number] [address] [place] [address] October, Chronic pain syndrome G89.4 and Fibromyalgia M79.7 [facility] [address] [facility] [id number] [address] [place] [address] October, Fibromyalgia M79.7 and Chron ic pain syndrome G89.4 [facility] [address] [id number] [address] [place] [address] Sep, Encounter for immunization Z 23 [facility] [address] [facility] [id number] [address] [place] [address] Sep, [facility] [address] [facility] [id number] [address] [place] [address] Sep, [facility] [address] [facility] [id number] [address] [place] [address] Aug, Fibromyalgia M79.7 and Insom christo G47.00 [facility] [address] [place] [id number] [address] [place] [address] Aug, Obesity E66.9 ; Snoring R06. 83 ; Fibromyalgia M79.7 ; Insomnia G47.00 and Screening cholesterol level Z13.220 [place] [address] [place] [place] [id number] [address] [place] [address] Aug, Fibromyalgia M79.7 [place] [address] [id number] [place] [address] Jul, Obesity E66.9 ; Personal his tory of alcoholism F10.21 and Fibromyalgia M79.7 [place] [address] [place] [id number] [address] [place] [address] Jul, [place] [address] [place] [id number] [place] [address] Jun, Obesity E66.9 ; Chronic pain syndrome G89.4 ; Fibromyalgia M79.7 ; Insomnia G47.00 and Wellness examination Z00.00 [place] [address] [address] Jun, Personal history of alcoholi sm F10.21 and Chronic pain syndrome G89.4 [place] [address] [place] [id number] [address] [place] [address] Jun, [place] [address] [place] [id number] [address] [place] [address] Jun, Fibromyalgia M79.7 [place] [address] [place] [id number] [address] [place] [address] May, Fibromyalgia M79.7 [place] [address] [place] [id number] [address] [place] [address] May, [place] [address] [place] [id number] [address] [place] [address] Apr, Obesity E66.9 ; Fibromyalgia M79.7 ; Insomnia G47.00 and Personal history of alcoholism F10.21 [facility] [address] [id number] [address] [place] [address] Apr, [facility] [address] [id number] [address] [place] [address] Apr, [facility] [address] [id number] [address] [place] [address] Mar, [facility] [address] [id number] [address] [place] [address] Mar, [facility] [address] [id number] [address] [place] [address] Feb, [facility] [address] [id number] [address] [place] [id number] Jan, [facility] [address] [id number] [address] [place] [address] Dec, Obesity E66.9 ; Fibromyalgia M79.7 ; Personal history of alcoholism F10.21 and Insomnia G47.00 [facility] [address] [id number] [address] [place] [address] Dec, Chronic pain syndrome G89.4 [facility] [address] [id number] [address] [place] [address] Dec, [facility] [address] [facility] [id number] [address] [place] [address] Dec, [facility] [address] [id number] [address] [place] [address] Nov, [facility] [address] [id number] [address] [place] [address] Nov, [facility] [address] [facility] [id number] [address] [place] [address] Nov, Fibromyalgia M79.7 ; Obesity E66.9 ; Personal history of alcoholism F10.21 ; Insomnia G47.00 and Chronic pain syndrome G89.4 [facility] [address] [facility] [id number] [address] [place] [address] Nov, Fibromyalgia M79.7 [facility] [address] [facility] [id number] [address] [place] [address] October, Fibromyalgia M79.7 [facility] [address] [facility] [id number] [address] [place] [address] October, Obesity E66.9 ; Fibromyalgia M79.7 ; Personal history of alcoholism F10.21 and Insomnia G47.00 [facility] [address] [facility] [id number] [address] [place] [address] Sep, [facility] [address] [facility] [id number] [address] [place] [address] Aug, Fibromyalgia M79.7 ; Obesity E66.9 ; Personal history of alcoholism F10.21 and Insomnia G47.00 [facility] [address] [facility] [id number] [address] [place] [address] Aug, [facility] [address] [facility] [id number] [address] [place] [address] Jul, [facility] [address] [facility] [id number] [address] [place] [address] Jun, [facility] [address] [facility] [id number] [address] [place] [address] Jun, [facility] [address] [facility] [id number] [address] [place] [address] May, [facility] [address] [facility] [id number] [address] [place] [address] May, Fibromyalgia M79.7 ; Obesity E66.9 and Insomnia G47.00 [facility] [address] [facility] [id number] [address] [place] [address] May, [facility] [address] [facility] [id number] [address] [place] [address] May, Fibromyalgia M79.7 ; Persona l history of alcoholism F10.21 ; Insomnia G47.00 and Obesity E66.9 [place] [address] [address] Apr, [place] [address] [address] Apr, Fibromyalgia M79.7 ; Obesity E66.9 ; Insomnia G47.00 ; Personal history of alcoholism F10.21 and Frequent falls R29.6 [place] [address] [address] Apr, Obesity E66.9 ; Fibromyalgia M79.7 and Insomnia G47.[address] [address] Mar, [address] [address] Mar, [place] [address] [address] Mar, [place] [address] [address] Mar, Obesity E66.9 ; Fibromyalgia M79.7 and Personal history of alcoholism F10.21 [place] [address] [address] Feb, [address] [address] Feb, Other malaise and fatigue 78 0.79 ; Abnormal weight gain 783.1 and Fibromyalgia 729.[address] [address] Jan, [address] [address] Dec, [address] [address] Dec, Fibromyalgia 729.1 and Abnor mal weight gain 783.1 [facility] [address] [id number] [address] [place] [address] Dec, Unspecified myalgia and myos itis 729.1 ; Abnormal weight gain 783.1 and Fibromyalgia 729.1 [facility] [address] [id number] [address] [place] [address] Nov, [facility] [address] [id number] [address] [place] [address] Nov, Other malaise and fatigue 78 0.79 ; Unspecified myalgia and myositis 729.1 and Abnormal weight gain 783.1 [facility] [address] [id number] [address] [place] [address] Nov, [facility] [address] [id number] [address] [place] [address] Nov, [facility] [address] [id number] [address] [place] [address] October, [facility] [address] [id number] [address] [place] [address] October, Unspecified myalgia and myos itis 729.1 and Scabies 133.0 [facility] [address] [id number] [address] [place] [address] October, [facility] [address] [id number] [address] [place] [phone] Sep, [facility] [address] [id number] [address] [place] [address] Sep, [facility] [address] [id number] [address] [place] [address] Aug, [facility] [address] [id number] [address] [place] [address] Aug, [facility] [address] [id number] [address] [place] [address] 17 Aug, 2014 [facility] [address] [id number] [address] [place] [address], [place] [id number] 17 Aug, 2014 [facility] [address] [id number] [address] [place] [address], [place] [id number] 12 Aug, 2014 [facility] [address] [id number] [address] [place] [address], [place] [id number] 12 Aug, 2014 [facility] [address] [id number] [address] [place] [address], [place] [id number] 11 Aug, 2014 [facility] [address] [id number] [address] [place] [address], [place] [id number] 11 Aug, 2014 [facility] [address] [id number] [address] [place] [address], [place] [id number] 10 Aug, 2014 [facility] [address] [id number] [address] [place] [address], [place] [id number] 10 Aug, 2014 [facility] [address] [id number] [address] [place] [address], [place] [id number] May, [facility] [address] [id number] [address] [place] [address], [place] [id number] May, [facility] [address] [id number] [address] [place] [address], [place] [id number] Mar, [facility] [address] [id number] [address] [place] [address], [place] [id number] Mar, [facility] [address] [id number] [address] [place] [address], [place] [id number] 17 Feb, 2014 [facility] [address] [id number] [address] [place] [address], [place] [id number] 17 Feb, 2014 [facility] [address] [id number] [address] [place] [address], [place] [id number] 11 Feb, 2014 [facility] [address] [id number] [address] [place] [address], [place] [id number] 11 Feb, 2014 [facility] [address] [id number] [address] [place] [phone] October, [facility] [address] [id number] [address] [place] [address] October, [facility] [address] [id number] [address] [place] [address] October, [facility] [address] [id number] [address] [place] [address] October, [facility] [address] [id number] [address] [place] [address] Sep, [facility] [address] [id number] [address] [place] [address] Sep, [facility] [address] [id number] [address] [place] [address] Sep, [facility] [address] [id number] [address] [place] [address] Sep, [facility] [address] [id number] [address] [place] [address] Jul, [facility] [address] [id number] [address] [place] [id number] Jul, [facility] [address] [id number] [address] [place] [id number] Jun, [facility] [address] [id number] [address] [place] [phone] Jun, [facility] [address] [id number] [address] [place] [phone] May, [facility] [address] [id number] [address] [place] [id number] May, IMMUNIZATIONS No Known Immunizations SOCIAL HISTORY Never Assessed REASON FOR VISIT Hydrocodone a Lyrica 07/14 PLAN OF CARE VITAL SIGNS MEDICATIONS Medication Instructions Dosage Frequency Start Date End Date Duration S tatus Lyrica 75 MG Orally Once a day 1 capsule 24h 28 days Active Hydrocodone-Ibuprofen 7.5-200 MG Orally 3 times [...]
--- OUTSIDE RECORDS SUMMARY | 2020-01-12 20:05 | XMS REPORT ---
Author Author Nani Smith Organization [facility] Address [address] [place] [address] Care Team Providers Care Team Guide Name Role Phone MARY Smith Unavailable PROBLEMS Type Condition ICD9-CM Code [id number] Code Onset Dates Condition S tatus SNOMED Code Problem Personal history of alcoholism F10.21 Active 855072130 Problem Fibromyalgia M79.7 Active 5808161 7 Problem Other chronic pain G89.29 Active 8 6494540 Problem Lumbago with sciatica, right side M54.41 Active 356147554280020 Problem Insomnia G47.00 Active 269024998 Problem Obesity E66.9 Active 558419321 Problem Lumbago with sciatica, left side M54.42 Active 342572183 Problem Chronic pain syndrome G89.4 Active 535251757 ALLERGIES No Information ENCOUNTERS Encounter Location Date Diagnosis [facility] [address] [address] Sep, [facility] [id number] [place] [address] Aug, Fibromyalgia M79.7 and BMI 5 0.0-59.9, adult Z68.43 [facility] [id number] [place] [phone] Aug, [facility] [address] [address] Aug, [facility] [address] [address] Jul, [facility] [id number] [place] [address] Jul, Insomnia G47.00 [facility] [address] [facility] [id number] [address] [place] [address] Jul, [facility] [address] [address] Jul, [facility] [id number] [place] [address] Jul, [facility] [address] [address] Jul, Fibromyalgia M79.7 [facility] [address] [address] Jul, [facility] [address] [address] Jun, Chronic pain syndrome G89.4 and Fibromyalgia M79.7 [facility] [address] [address] Jun, Fibromyalgia M79.7 [facility] [id number] [place] [address] Jun, Bronchitis J40 ; Fibromyalgi a M79.7 ; Lumbago with sciatica, left side M54.42 ; Lumbago with sciatica, right side M54.41 ; Other chronic pain G89.29 and BMI 45.0-49.9, adult Z68.42 [facility] [address] [place] [address] Jun, Influenza-like illness R69 [facility] [address] [place] [address] Jun, [facility] [address] [address] Jun, Fibromyalgia M79.7 [facility] [id number] [place] [address] May, Fibromyalgia M79.7 [facility] [id number] [place] [address] Apr, Insomnia G47.00 [facility] [address] [facility] [id number] [address] [place] [address] Apr, [facility] [address] [facility] [id number] [address] [place] [address] Apr, [facility] [address] [id number] [address] [place] [address] Apr, Fibromyalgia M79.7 [facility] [address] [id number] [address] [place] [phone] 16 Mar, 2017 Encounter for immunization Z 23 [facility] [address] [place] [id number] [place] [address] 10 Mar, 2017 Visit for TB skin test Z11.1 [facility] [id number] [place] [address] Mar, Fibromyalgia M79.7 [facility] [address] [id number] [address] [place] [address] Feb, Fibromyalgia M79.7 [facility] [id number] [place] [address] Feb, [facility] [id number] [place] [address] Feb, Fibromyalgia M79.7 [facility] [address] [id number] [address] [place] [address] Jan, Fibromyalgia M79.7 ; Obesity E66.9 ; Insomnia G47.00 and Chronic pain syndrome G89.4 [facility] [address] [id number] [address] [place] [address] Jan, [facility] [address] [id number] [address] [place] [address] Jan, [facility] [address] [id number] [address] [place] [address] Dec, [facility] [address] [id number] [address] [place] [address] Dec, [facility] [address] [id number] [address] [place] [address] Dec, [facility] [address] [id number] [address] [place] [address] Nov, Chronic pain syndrome G89.4 [facility] [address] [id number] [address] [place] [address] October, Chronic pain syndrome G89.4 [facility] [address] [id number] [address] [place] [address] October, Chronic pain syndrome G89.4 [facility] [address] [id number] [address] [place] [address] October, [facility] [address] [id number] [address] [place] [address] October, Chronic pain syndrome G89.4 [facility] [address] [id number] [address] [place] [phone] October, Chronic pain syndrome G89.4 and Fibromyalgia M79.7 [facility] [address] [id number] [address] [place] [address] October, Fibromyalgia M79.7 and Chron ic pain syndrome G89.4 [facility] [address] [id number] [address] [place] [address] Sep, Encounter for immunization Z 23 [facility] [address] [id number] [address] [place] [address] Sep, [facility] [address] [facility] [id number] [address] [place] [address] Sep, [facility] [address] [facility] [id number] [address] [place] [address] Aug, Fibromyalgia M79.7 and Insom christo G47.00 [facility] [address] [address] Aug, Obesity E66.9 ; Snoring R06. 83 ; Fibromyalgia M79.7 ; Insomnia G47.00 and Screening cholesterol level Z13.220 [place] [address] [address] Aug, Fibromyalgia M79.7 [place] [address] [address] Jul, Obesity E66.9 ; Personal his tory of alcoholism F10.21 and Fibromyalgia M79.7 [place] [address] [address] Jul, [place] [address] [address] Jun, Obesity E66.9 ; Chronic pain syndrome G89.4 ; Fibromyalgia M79.7 ; Insomnia G47.00 and Wellness examination Z00.00 [place] [address] [address] Jun, Personal history of alcoholi sm F10.21 and Chronic pain syndrome G89.4 [place] [address] [address] Jun, [place] [address] [address] Jun, Fibromyalgia M79.7 [place] [address] [address] May, Fibromyalgia M79.7 [place] [address] [address] May, [place] [address] [address] Apr, Obesity E66.9 ; Fibromyalgia M79.7 ; Insomnia G47.00 and Personal history of alcoholism F10.21 [place] [address] [id number] [place] [address] Apr, [facility] [address] [id number] [address] [place] [address] Apr, [facility] [address] [id number] [address] [place] [address] Mar, [facility] [address] [id number] [address] [place] [address] Mar, [facility] [address] [id number] [address] [place] [address] Feb, [facility] [address] [id number] [address] [place] [address] Jan, [facility] [address] [id number] [address] [place] [address] Dec, Obesity E66.9 ; Fibromyalgia M79.7 ; Personal history of alcoholism F10.21 and Insomnia G47.00 [facility] [address] [id number] [address] [place] [address] Dec, Chronic pain syndrome G89.4 [facility] [address] [id number] [address] [place] [address] Dec, [facility] [address] [facility] [id number] [address] [place] [address] Dec, [facility] [address] [id number] [address] [place] [address] Nov, [facility] [address] [id number] [address] [place] [address] Nov, [facility] [address] [facility] [id number] [address] [place] [address] Nov, Fibromyalgia M79.7 ; Obesity E66.9 ; Personal history of alcoholism F10.21 ; Insomnia G47.00 and Chronic pain syndrome G89.4 [facility] [address] [id number] [address] [place] [address] Nov, Fibromyalgia M79.7 [facility] [address] [id number] [address] [place] [address] October, Fibromyalgia M79.7 [facility] [address] [id number] [address] [place] [address] October, Obesity E66.9 ; Fibromyalgia M79.7 ; Personal history of alcoholism F10.21 and Insomnia G47.00 [facility] [address] [facility] [id number] [address] [place] [address] Sep, [facility] [address] [facility] [id number] [address] [place] [address] Aug, Fibromyalgia M79.7 ; Obesity E66.9 ; Personal history of alcoholism F10.21 and Insomnia G47.00 [facility] [address] [id number] [address] [place] [address] Aug, [facility] [address] [id number] [address] [place] [address] Jul, [facility] [id number] [place] [id number] Jun, [facility] [address] [id number] [place] [phone] Jun, [facility] [address] [id number] [address] [place] [address] May, [facility] [address] [id number] [address] [place] [address] May, Fibromyalgia M79.7 ; Obesity E66.9 and Insomnia G47.00 [facility] [address] [id number] [address] [place] [address] May, [facility] [address] [id number] [address] [place] [address] May, Fibromyalgia M79.7 ; Persona l history of alcoholism F10.21 ; Insomnia G47.00 and Obesity E66.9 [place] [address] [address] Apr, [facility] [address] [address] Apr, Fibromyalgia M79.7 ; Obesity E66.9 ; Insomnia G47.00 ; Personal history of alcoholism F10.21 and Frequent falls R29.6 [place] [address] [address] Apr, Obesity E66.9 ; Fibromyalgia M79.7 and Insomnia G47.00 [place] [address] [address] Mar, [place] [address] [address] Mar, [place] [address] [address] Mar, [facility] [address] [address] Mar, Obesity E66.9 ; Fibromyalgia M79.7 and Personal history of alcoholism F10.21 [place] [address] [address] Feb, [place] [address] [address] Feb, Other malaise and fatigue 78 0.79 ; Abnormal weight gain 783.1 and Fibromyalgia 729.1 [place] [address] [address] Jan, [place] [address] [address] Dec, [place] [address] [address] Dec, Fibromyalgia 729.1 and Abnor mal weight gain 783.1 [place] [id number] [place] [address] Dec, Unspecified myalgia and myos itis 729.1 ; Abnormal weight gain 783.1 and Fibromyalgia 729.1 [facility] [address] [id number] [address] [place] [address] Nov, [facility] [address] [id number] [address] [place] [address] Nov, Other malaise and fatigue 78 0.79 ; Unspecified myalgia and myositis 729.1 and Abnormal weight gain 783.1 [facility] [address] [id number] [address] [place] [address] Nov, [facility] [address] [id number] [address] [place] [address] Nov, [facility] [address] [facility] [id number] [address] [place] [address] October, [facility] [address] [id number] [address] [place] [address] October, Unspecified myalgia and myos itis 729.1 and Scabies 133.0 [facility] [address] [id number] [address] [place] [address] October, [facility] [address] [id number] [address] [place] [phone] Sep, [facility] [address] [id number] [address] [place] [address] Sep, [facility] [address] [id number] [address] [place] [address] Aug, [facility] [address] [id number] [address] [place] [address] Aug, [facility] [address] [facility] [id number] [address] [place] [address] Aug, [facility] [address] [id number] [address] [place] [address], [place] [address] 17 Aug, 2014 [facility] [address] [id number] [address] [place] [address], [place] [address] 12 Aug, 2014 [facility] [address] [id number] [address] [place] [address], [place] [address] 12 Aug, 2014 [facility] [address] [id number] [address] [place] [address], [place] [address] 11 Aug, 2014 [facility] [address] [id number] [address] [place] [address], [place] [address] 11 Aug, 2014 [facility] [address] [id number] [address] [place] [address], [place] [address] 10 Aug, 2014 [facility] [address] [id number] [address] [place] [address], [place] [address] 10 Aug, 2014 [facility] [address] [id number] [address] [place] [address], [place] [address] May, [facility] [address] [id number] [address] [place] [address], [place] [address] May, [facility] [address] [id number] [address] [place] [address], [place] [address] Mar, [facility] [address] [id number] [address] [place] [address], [place] [address] Mar, [facility] [address] [id number] [address] [place] [address], [place] [address] 17 Feb, 2014 [facility] [address] [id number] [address] [place] [address], [place] [address] 17 Feb, 2014 [facility] [address] [id number] [address] [place] [address], [place] [address] Feb, [facility] [address] [id number] [address] [place] [address], [place] [address] Feb, [facility] [address] [id number] [address] [place] [address], [place] [address] October, [facility] [address] [id number] [address] [place] [phone] October, [facility] [address] [id number] [address] [place] [address] October, [facility] [address] [id number] [address] [place] [address] October, [facility] [address] [id number] [address] [place] [address] Sep, [facility] [address] [id number] [address] [place] [address] Sep, [facility] [address] [id number] [address] [place] [address] Sep, [facility] [address] [id number] [address] [place] [address] Sep, [facility] [address] [id number] [address] [place] [address] Jul, [facility] [address] [id number] [address] [place] [address] Jul, [facility] [address] [id number] [address] [place] [id number] Jun, [facility] [address] [id number] [address] [place] [address] Jun, [facility] [address] [id number] [address] [place] [address] May, [facility] [address] [id number] [address] [place] [address] May, IMMUNIZATIONS No Known Immunizations SOCIAL HISTORY Never Assessed REASON FOR VISIT Controlled Refill Request PLAN OF CARE VITAL SIGNS MEDICATIONS Medication Instructions Dosage Frequency Start Date End Date Duration S tatus Hydrocodone-Ibuprofen 7.5-200 MG Orally 3 times a day 1 tablet as n eeded 8h Dec, 28 days Active RESULTS No Results PROCEDURES No Known procedures INSTRUCTIONS MEDICATIONS ADMINISTERED No Known Medications MEDICAL (GENERAL) HISTORY Type Description Date Medical History fibromyalgia Medical History insomnia Medical History obesity Surgical History ganglion cyst removal 1996 Surgical History section 2004 Hospitalization History surgeries
--- OUTSIDE RECORDS SUMMARY | 2020-01-12 20:06 | XMS REPORT ---
Author Author Nani MARLEY Organization [facility] Address [address] [place] [address] Care Team Providers Care In Service Education Teacher Name Role Phone HUBER MARLEY Unavailable PROBLEMS Type Condition ICD9-CM Code NBS99-JT Code Onset Dates Condition S tatus SNOMED Code Problem Personal history of alcoholism F10.21 Active 329239791 Problem Fibromyalgia M79.7 Active 2785711 7 Problem Other chronic pain G89.29 Active 8 9595876 Problem Lumbago with sciatica, right side M54.41 Active [id number] Problem Insomnia G47.00 Active 842471487 Problem Obesity E66.9 Active 550916995 Problem Lumbago with sciatica, left side M54.42 Active 243110246 Problem Chronic pain syndrome G89.4 Active [id number] ALLERGIES No Information ENCOUNTERS Encounter Location Date Diagnosis [facility] [address] [facility] [id number] [address] [place] [id number] Nov, [facility] [address] [facility] [id number] [address] [place] [id number] Nov, [facility] [address] [facility] [id number] [address] [place] [address] Aug, Fibromyalgia M79.7 and BMI 5 0.0-59.9, adult Z68.43 [facility] [address] [facility] [id number] [address] [place] [phone] Aug, [facility] [address] [facility] [id number] [address] [place] [id number] Aug, [facility] [address] [facility] [id number] [address] [place] [address] Jul, [facility] [address] [facility] [id number] [address] [place] [address] Jul, Insomnia G47.00 [facility] [address] [address] Jul, [facility] [address] [place] [id number] [place] [address] Jul, [facility] [address] [phone] Jul, [facility] [address] [id number] Jul, Fibromyalgia M79.7 [facility] [address] [id number] Jul, [facility] [address] [address] Jun, Chronic pain syndrome G89.4 and Fibromyalgia M79.7 [facility] [address] [address] Jun, Fibromyalgia M79.7 [facility] [address] [address] Jun, Bronchitis J40 ; Fibromyalgi a M79.7 ; Lumbago with sciatica, left side M54.42 ; Lumbago with sciatica, right side M54.41 ; Other chronic pain G89.29 and BMI 45.0-49.9, adult Z68.42 [facility] [address] [place] [id number] [address] [place] [id number] Jun, Influenza-like illness R69 [facility] [address] [id number] Jun, [facility] [address] [address] Jun, Fibromyalgia M79.7 [facility] [address] [address] May, Fibromyalgia M79.7 [facility] [address] [facility] [id number] [address] [place] [id number] Apr, Insomnia G47.00 [facility] [address] [facility] [id number] [address] [place] [id number] Apr, [facility] [address] [facility] [id number] [address] [place] [address] Apr, [facility] [address] [facility] [id number] [address] [place] [address] Apr, Fibromyalgia M79.7 [facility] [address] [place] [id number] [place] [address] Mar, Encounter for immunization Z 23 [facility] [address] [id number] [place] [id number] 10 Mar, 2017 Visit for TB skin test Z11.1 [facility] [address] [place] [id number] [address] [place] [id number] Mar, Fibromyalgia M79.7 [facility] [address] [place] [id number] [address] [place] [address] Feb, Fibromyalgia M79.7 [facility] [address] [id number] [address] [place] [phone] Feb, [facility] [id number] [place] [address] Feb, Fibromyalgia M79.7 [facility] [address] [facility] [id number] [address] [place] [id number] Jan, Fibromyalgia M79.7 ; Obesity E66.9 ; Insomnia G47.00 and Chronic pain syndrome G89.4 [facility] [address] [facility] [id number] [address] [place] [id number] Jan, [facility] [address] [place] [id number] [address] [place] [address] Jan, [facility] [address] [id number] [address] [place] [phone] Dec, [facility] [address] [id number] [address] [place] [phone] Dec, [facility] [address] [id number] [address] [place] [address] Dec, [facility] [address] [facility] [id number] [address] [place] [address] Nov, Chronic pain syndrome G89.4 [facility] [address] [id number] [address] [place] [address] October, Chronic pain syndrome G89.4 [facility] [address] [id number] [address] [place] [address] October, Chronic pain syndrome G89.4 [facility] [address] [id number] [address] [place] [phone] October, [facility] [address] [id number] [address] [place] [address] October, Chronic pain syndrome G89.4 [facility] [address] [id number] [address] [place] [address] October, Chronic pain syndrome G89.4 and Fibromyalgia M79.7 [facility] [address] [facility] [id number] [address] [place] [address] October, Fibromyalgia M79.7 and Chron ic pain syndrome G89.4 [facility] [address] [id number] [address] [place] [address] Sep, Encounter for immunization Z 23 [facility] [address] [facility] [id number] [address] [place] [address] Sep, [facility] [address] [facility] [id number] [address] [place] [address] Sep, [facility] [address] [facility] [id number] [address] [place] [address] Aug, Fibromyalgia M79.7 and Insom christo G47.00 [facility] [address] [place] [id number] [address] [place] [address] Aug, Obesity E66.9 ; Snoring R06. 83 ; Fibromyalgia M79.7 ; Insomnia G47.00 and Screening cholesterol level Z13.220 [place] [address] [place] [id number] [place] [address] Aug, Fibromyalgia M79.7 [place] [address] [place] [id number] [place] [address] Jul, Obesity E66.9 ; Personal his tory of alcoholism F10.21 and Fibromyalgia M79.7 [place] [address] [place] [id number] [address] [place] [address] Jul, [place] [address] [place] [id number] [place] [address] Jun, Obesity E66.9 ; Chronic pain syndrome G89.4 ; Fibromyalgia M79.7 ; Insomnia G47.00 and Wellness examination Z00.00 [place] [address] [address] Jun, Personal history of alcoholi sm F10.21 and Chronic pain syndrome G89.4 [place] [address] [place] [id number] [address] [place] [address] Jun, [place] [address] [place] [id number] [address] [place] [address] Jun, Fibromyalgia M79.7 [place] [address] [place] [id number] [address] [place] [address] May, Fibromyalgia M79.7 [place] [address] [place] [id number] [address] [place] [address] May, [place] [address] [place] [id number] [address] [place] [address] Apr, Obesity E66.9 ; Fibromyalgia M79.7 ; Insomnia G47.00 and Personal history of alcoholism F10.21 [facility] [address] [id number] [address] [place] [id number] Apr, [facility] [address] [id number] [address] [place] [phone] Apr, [facility] [address] [id number] [address] [place] [address] Mar, [facility] [address] [id number] [address] [place] [address] Mar, [facility] [address] [id number] [address] [place] [address] Feb, [facility] [address] [id number] [address] [place] [address] Jan, [facility] [address] [id number] [address] [place] [address] Dec, Obesity E66.9 ; Fibromyalgia M79.7 ; Personal history of alcoholism F10.21 and Insomnia G47.00 [facility] [address] [id number] [address] [place] [address] Dec, Chronic pain syndrome G89.4 [facility] [address] [id number] [address] [place] [phone] Dec, [facility] [address] [facility] [id number] [address] [place] [id number] Dec, [facility] [address] [id number] [address] [place] [id number] Nov, [facility] [address] [id number] [address] [place] [address] Nov, [facility] [address] [facility] [id number] [address] [place] [address] Nov, Fibromyalgia M79.7 ; Obesity E66.9 ; Personal history of alcoholism F10.21 ; Insomnia G47.00 and Chronic pain syndrome G89.4 [facility] [address] [facility] [id number] [address] [place] [address] Nov, Fibromyalgia M79.7 [facility] [address] [facility] [id number] [address] [place] [id number] October, Fibromyalgia M79.7 [facility] [address] [facility] [id number] [address] [place] [address] October, Obesity E66.9 ; Fibromyalgia M79.7 ; Personal history of alcoholism F10.21 and Insomnia G47.00 [facility] [address] [facility] [id number] [address] [place] [phone] Sep, [facility] [address] [facility] [id number] [address] [place] [address] Aug, Fibromyalgia M79.7 ; Obesity E66.9 ; Personal history of alcoholism F10.21 and Insomnia G47.00 [facility] [address] [facility] [id number] [address] [place] [phone] Aug, [facility] [address] [facility] [id number] [address] [place] [id number] Jul, [facility] [address] [facility] [id number] [address] [place] [id number] Jun, [facility] [address] [facility] [id number] [address] [place] [address] Jun, [facility] [address] [facility] [id number] [address] [place] [address] May, [facility] [address] [facility] [id number] [address] [place] [address] May, Fibromyalgia M79.7 ; Obesity E66.9 and Insomnia G47.00 [facility] [address] [facility] [id number] [address] [place] [address] May, [facility] [address] [facility] [id number] [address] [place] [address] May, Fibromyalgia M79.7 ; Persona l history of alcoholism F10.21 ; Insomnia G47.00 and Obesity E66.9 [place] [address] [address] Apr, [place] [address] [address] Apr, Fibromyalgia M79.7 ; Obesity E66.9 ; Insomnia G47.00 ; Personal history of alcoholism F10.21 and Frequent falls R29.6 [place] [address] [address] Apr, Obesity E66.9 ; Fibromyalgia M79.7 and Insomnia G47.[address] [address] Mar, [address] [address] Mar, [place] [address] [address] Mar, [place] [address] [address] Mar, Obesity E66.9 ; Fibromyalgia M79.7 and Personal history of alcoholism F10.21 [place] [address] [address] Feb, [address] [address] Feb, Other malaise and fatigue 78 0.79 ; Abnormal weight gain 783.1 and Fibromyalgia 729.[address] [address] Jan, [address] [address] Dec, [address] [address] Dec, Fibromyalgia 729.1 and Abnor mal weight gain 783.1 [facility] [address] [id number] [address] [place] [address] Dec, Unspecified myalgia and myos itis 729.1 ; Abnormal weight gain 783.1 and Fibromyalgia 729.1 [facility] [address] [id number] [address] [place] [address] Nov, [facility] [address] [id number] [address] [place] [id number] Nov, Other malaise and fatigue 78 0.79 ; Unspecified myalgia and myositis 729.1 and Abnormal weight gain 783.1 [facility] [address] [id number] [address] [place] [phone] Nov, [facility] [address] [id number] [address] [place] [address] Nov, [facility] [address] [id number] [address] [place] [address] October, [facility] [address] [id number] [address] [place] [address] October, Unspecified myalgia and myos itis 729.1 and Scabies 133.0 [facility] [address] [id number] [address] [place] [address] October, [facility] [address] [id number] [address] [place] [phone] Sep, [facility] [address] [id number] [address] [place] [phone] Sep, [facility] [address] [id number] [address] [place] [phone] Aug, [facility] [address] [id number] [address] [place] [phone] Aug, [facility] [address] [id number] [address] [place] [address] 17 Aug, 2014 [facility] [address] [id number] [address] [place] [address], [place] [address] 17 Aug, 2014 [facility] [address] [id number] [address] [place] [address], [place] [address] 12 Aug, 2014 [facility] [address] [id number] [address] [place] [address], [place] [address] 12 Aug, 2014 [facility] [address] [id number] [address] [place] [address], [place] [address] 11 Aug, 2014 [facility] [address] [id number] [address] [place] [address], [place] [address] 11 Aug, 2014 [facility] [address] [id number] [address] [place] [address], [place] [address] 10 Aug, 2014 [facility] [address] [id number] [address] [place] [address], [place] [address] 10 Aug, 2014 [facility] [address] [id number] [address] [place] [address], [place] [address] May, [facility] [address] [id number] [address] [place] [address], [place] [address] May, [facility] [address] [id number] [address] [place] [address], [place] [address] Mar, [facility] [address] [id number] [address] [place] [address], [place] [address] Mar, [facility] [address] [id number] [address] [place] [address], [place] [address] 17 Feb, 2014 [facility] [address] [id number] [address] [place] [address], [place] [address] 17 Feb, 2014 [facility] [address] [id number] [address] [place] [address], [place] [address] 11 Feb, 2014 [facility] [address] [id number] [address] [place] [address], [place] [address] 11 Feb, 2014 [facility] [address] [id number] [address] [place] [id number] October, [facility] [address] [id number] [address] [place] [phone] October, [facility] [address] [id number] [address] [place] [phone] October, [facility] [address] [id number] [address] [place] [phone] October, [facility] [address] [id number] [address] [place] [id number] Sep, [facility] [address] [id number] [address] [place] [phone] Sep, [facility] [address] [id number] [address] [place] [phone] Sep, [facility] [address] [id number] [address] [place] [address] Sep, [facility] [address] [id number] [address] [place] [address] Jul, [facility] [address] [id number] [address] [place] [phone] Jul, [facility] [address] [id number] [address] [place] [phone] Jun, [facility] [address] [id number] [address] [place] [id number] Jun, [facility] [address] [id number] [address] [place] [address] May, [facility] [address] [id number] [address] [place] [phone] May, IMMUNIZATIONS No Known Immunizations SOCIAL HISTORY Never Assessed REASON FOR VISIT PLAN OF CARE VITAL SIGNS MEDICATIONS Medication Instructions Dosage Frequency Start Date End Date Duration S tatus Lyrica 75 MG TAKE ONE CAPSULE BY MOUTH ONCE DAILY 30 Active RESULTS No Results PROCEDURES No Known procedures INSTRUCTIONS MEDICATIONS ADMINISTERED No Known Medications MEDICAL (GENERAL) HISTORY Type Description Date Medical History fibromyalgia Medical History insomnia Medical History obesity Surgical History ganglion cyst removal 1996 Surgical History section 2004 Hospitalization History surgeries
--- OUTSIDE RECORDS SUMMARY | 2020-01-12 20:06 | XMS REPORT ---
Author Author Nani STINSON [facility] WALK IN [facility] Address [address] [place] [address] Care Team Providers Care Web Worker Name Role Phone JEAN STINSON Unavailable PROBLEMS Type Condition ICD9-CM Code FIE15-LI Code Onset Dates Condition S tatus SNOMED Code Problem Personal history of alcoholism F10.21 Active 512890445 Problem Fibromyalgia M79.7 Active 8464359 7 Problem Other chronic pain G89.29 Active 8 7940641 Problem Lumbago with sciatica, right side M54.41 Active [id number] Problem Insomnia G47.00 Active 361119576 Problem Obesity E66.9 Active 062423278 Problem Lumbago with sciatica, left side M54.42 Active 115659106 Problem Chronic pain syndrome G89.4 Active 979040887 ALLERGIES Substance Reaction Event Type Date Status Tramadol HCl rash Drug Allergy Jun, Active Penicillin V Potassium Unknown Drug Allergy Jun, Activ e Bactrim Unknown Drug Allergy Jun, Active Clindamycin Unknown Drug Allergy Jun, Active ENCOUNTERS Encounter Location Date Diagnosis [facility] [place] [address] [facility] [id number] [address] [place] [address] Nov, [facility] [place] [address] [place] [id number] [address] [place] [id number] Nov, [facility] [address] [id number] [address] [place] [address] Aug, Fibromyalgia M79.7 and BMI 5 0.0-59.9, adult Z68.43 [facility] [place] [address] [id number] [address] [place] [address] Aug, [facility] [place] [address] [id number] [address] [place] [address] Aug, [facility] [place] [address] [id number] [address] [place] [address] Jul, [facility] [place] [address] [address] Jul, Insomnia G47.00 [facility] [place] [address] [address] Jul, [facility] [place] [address] [address] Jul, [facility] [place] [address] [address] Jul, [facility] [place] [address] [address] Jul, Fibromyalgia M79.7 [facility] [place] [address] [address] Jul, [facility] [place] [address] [address] Jun, Chronic pain syndrome G89.4 and Fibromyalgia M79.7 [facility] [place] [address] [address] Jun, Fibromyalgia M79.7 [facility] [place] [address] [address] Jun, Bronchitis J40 ; Fibromyalgi a M79.7 ; Lumbago with sciatica, left side M54.42 ; Lumbago with sciatica, right side M54.41 ; Other chronic pain G89.29 and BMI 45.0-49.9, adult Z68.42 [facility] [address] [id number] [address] [place] [address] Jun, Influenza-like illness R69 [facility] [place] [address] [id number] [address] [place] [address] Jun, [facility] [place] [address] [facility] [id number] [address] [place] [address] Jun, Fibromyalgia M79.7 [facility] [place] [address] [facility] [id number] [address] [place] [address] May, Fibromyalgia M79.7 [facility] [place] [address] [facility] [id number] [address] [place] [address] Apr, Insomnia G47.00 [facility] [place] [address] [facility] [id number] [address] [place] [address] Apr, [facility] [place] [address] [facility] [id number] [address] [place] [address] Apr, [facility] [place] [address] [facility] [id number] [address] [place] [address] Apr, Fibromyalgia M79.7 [facility] [place] [address] [facility] [id number] [address] [place] [id number] 16 Mar, 2017 Encounter for immunization Z 23 [facility] [place] [address] [facility] [id number] [address] [place] [address] 10 Mar, 2017 Visit for TB skin test Z11.1 [facility] [place] [address] [facility] [id number] [address] [place] [address] 04 Mar, 2017 Fibromyalgia M79.7 [facility] [place] [address] [facility] [id number] [address] [place] [address] Feb, Fibromyalgia M79.7 [facility] [place] [address] [facility] [id number] [address] [place] [phone] Feb, [facility] [place] [address] [facility] [id number] [address] [place] [id number] Feb, Fibromyalgia M79.7 [facility] [place] [address] [facility] [id number] [address] [place] [address] Jan, Fibromyalgia M79.7 ; Obesity E66.9 ; Insomnia G47.00 and Chronic pain syndrome G89.4 [facility] [place] [address] [id number] [address] [place] [phone] Jan, [facility] [place] [address] [id number] [address] [place] [phone] Jan, [facility] [place] [address] [id number] [address] [place] [phone] Dec, [facility] [place] [address] [id number] [address] [place] [address] Dec, [facility] [place] [address] [id number] [address] [place] [phone] Dec, [facility] [place] [address] [id number] [address] [place] [phone] Nov, Chronic pain syndrome G89.4 [facility] [place] [address] [id number] [address] [place] [address] October, Chronic pain syndrome G89.4 [facility] [place] [address] [id number] [address] [place] [address] October, Chronic pain syndrome G89.4 [facility] [place] [address] [id number] [address] [place] [phone] October, [facility] [place] [address] [facility] [id number] [address] [place] [phone] October, Chronic pain syndrome G89.4 [facility] [place] [address] [id number] [address] [place] [phone] October, Chronic pain syndrome G89.4 and Fibromyalgia M79.7 [facility] [place] [address] [id number] [address] [place] [address] October, Fibromyalgia M79.7 and Chron ic pain syndrome G89.4 [facility] [place] [address] [id number] [address] [place] [phone] Sep, Encounter for immunization Z 23 [facility] [place] [address] [facility] [id number] [address] [place] [address] Sep, [facility] [place] [address] [facility] [id number] [address] [place] [address] Sep, [facility] [place] [address] [id number] [address] [place] [address] Aug, Fibromyalgia M79.7 and Insom christo G47.00 [facility] [place] [address] [id number] [address] [place] [address] Aug, Obesity E66.9 ; Snoring R06. 83 ; Fibromyalgia M79.7 ; Insomnia G47.00 and Screening cholesterol level Z13.220 [facility] [place] [address] [id number] [address] [place] [address] Aug, Fibromyalgia M79.7 [place] [address] [id number] [place] [address] Jul, Obesity E66.9 ; Personal his tory of alcoholism F10.21 and Fibromyalgia M79.7 [place] [address] [place] [id number] [address] [place] [address] Jul, [facility] [place] [address] [id number] [address] [place] [address] Jun, Obesity E66.9 ; Chronic pain syndrome G89.4 ; Fibromyalgia M79.7 ; Insomnia G47.00 and Wellness examination Z00.00 [place] [address] [place] [id number] [address] [place] [address] Jun, Personal history of alcoholi sm F10.21 and Chronic pain syndrome G89.4 [facility] [place] [address] [facility] [id number] [address] [place] [phone] Jun, [place] [address] [place] [id number] [address] [place] [address] Jun, Fibromyalgia M79.7 [facility] [place] [address] [facility] [id number] [address] [place] [address] May, Fibromyalgia M79.7 [facility] [place] [address] [id number] [place] [address] May, [facility] [place] [address] [id number] [address] [place] [address] Apr, Obesity E66.9 ; Fibromyalgia M79.7 ; Insomnia G47.00 and Personal history of alcoholism F10.21 [facility] [place] [address] [id number] [address] [place] [phone] Apr, [facility] [place] [address] [id number] [address] [place] [phone] Apr, [facility] [place] [address] [id number] [address] [place] [phone] Mar, [facility] [place] [address] [id number] [address] [place] [phone] Mar, [facility] [place] [address] [id number] [address] [place] [phone] Feb, [facility] [place] [address] [id number] [address] [place] [phone] Jan, [facility] [place] [address] [id number] [address] [place] [address] Dec, Obesity E66.9 ; Fibromyalgia M79.7 ; Personal history of alcoholism F10.21 and Insomnia G47.00 [facility] [place] [address] [id number] [address] [place] [address] Dec, Chronic pain syndrome G89.4 [facility] [place] [address] [id number] [address] [place] [phone] Dec, [facility] [place] [address] [id number] [address] [place] [id number] Dec, [facility] [place] [address] [id number] [address] [place] [phone] Nov, [facility] [place] [address] [id number] [address] [place] [address] Nov, [facility] [place] [address] [id number] [address] [place] [address] 15 Nov, 2015 Fibromyalgia M79.7 ; Obesity E66.9 ; Personal history of alcoholism F10.21 ; Insomnia G47.00 and Chronic pain syndrome G89.4 [facility] [place] [address] [facility] [id number] [address] [place] [phone] 10 Nov, 2015 Fibromyalgia M79.7 [facility] [place] [address] [place] [id number] [address] [place] [address] October, Fibromyalgia M79.7 [facility] [place] [address] [id number] [place] [address] October, Obesity E66.9 ; Fibromyalgia M79.7 ; Personal history of alcoholism F10.21 and Insomnia G47.00 [facility] [place] [id number] [place] [address] Sep, [facility] [place] [id number] [place] [address] Aug, Fibromyalgia M79.7 ; Obesity E66.9 ; Personal history of alcoholism F10.21 and Insomnia G47.00 [facility] [place] [address] [address] Aug, [facility] [place] [id number] [place] [address] Jul, [facility] [place] [id number] [place] [address] Jun, [facility] [place] [address] [place] [id number] [address] [place] [phone] Jun, [facility] [place] [address] [place] [id number] [address] [place] [address] May, [facility] [place] [address] [id number] [address] [place] [address] May, Fibromyalgia M79.7 ; Obesity E66.9 and Insomnia G47.00 [facility] [place] [address] [address] May, [facility] [place] [address] [address] May, Fibromyalgia M79.7 ; Persona l history of alcoholism F10.21 ; Insomnia G47.00 and Obesity E66.9 [place] [address] [address] Apr, [place] [address] [address] Apr, Fibromyalgia M79.7 ; Obesity E66.9 ; Insomnia G47.00 ; Personal history of alcoholism F10.21 and Frequent falls R29.6 [place] [address] [address] Apr, Obesity E66.9 ; Fibromyalgia M79.7 and Insomnia G47.00 [place] [address] [address] Mar, [place] [address] [address] Mar, [place] [address] [address] Mar, [place] [address] [address] Mar, Obesity E66.9 ; Fibromyalgia M79.7 and Personal history of alcoholism F10.21 [place] [address] [address] Feb, [place] [address] [address] Feb, Other malaise and fatigue 78 0.79 ; Abnormal weight gain 783.1 and Fibromyalgia 729.1 [place] [address] [address] Jan, [place] [id number] [place] [address] Dec, [facility] [place] [address] [id number] [address] [place] [address] Dec, Fibromyalgia 729.1 and Abnor mal weight gain 783.1 [facility] [place] [address] [facility] [id number] [address] [place] [address] Dec, Unspecified myalgia and myos itis 729.1 ; Abnormal weight gain 783.1 and Fibromyalgia 729.1 [facility] [place] [address] [id number] [address] [place] [address] Nov, [facility] [place] [address] [facility] [id number] [address] [place] [address] Nov, Other malaise and fatigue 78 0.79 ; Unspecified myalgia and myositis 729.1 and Abnormal weight gain 783.1 [facility] [place] [address] [facility] [id number] [address] [place] [address] Nov, [facility] [place] [address] [facility] [id number] [address] [place] [address] Nov, [facility] [place] [address] [facility] [id number] [address] [place] [address] October, [facility] [place] [address] [facility] [id number] [address] [place] [address] October, Unspecified myalgia and myos itis 729.1 and Scabies 133.0 [facility] [place] [address] [id number] [address] [place] [phone] October, [facility] [place] [address] [facility] [id number] [address] [place] [phone] Sep, [facility] [place] [address] [facility] [id number] [address] [place] [phone] Sep, [facility] [place] [address] [facility] [id number] [address] [place] [phone] Aug, [facility] [address] [id number] [address] [place] [address], [place] [address] 17 Aug, 2014 [facility] [address] [id number] [address] [place] [address], [place] [address] 17 Aug, 2014 [facility] [address] [id number] [address] [place] [address], [place] [address] 17 Aug, 2014 [facility] [address] [id number] [address] [place] [address], [place] [address] 12 Aug, 2014 [facility] [address] [id number] [address] [place] [address], [place] [address] 12 Aug, 2014 [facility] [address] [id number] [address] [place] [address], [place] [address] 11 Aug, 2014 [facility] [address] [id number] [address] [place] [address], [place] [address] 11 Aug, 2014 [facility] [address] [id number] [address] [place] [address], [place] [address] 10 Aug, 2014 [facility] [address] [id number] [address] [place] [address], [place] [address] 10 Aug, 2014 [facility] [address] [id number] [address] [place] [address], [place] [address] 04 May, 2014 [facility] [address] [id number] [address] [place] [address], [place] [address] 04 May, 2014 [facility] [address] [id number] [address] [place] [address], [place] [address] Mar, [facility] [address] [id number] [address] [place] [address], [place] [address] Mar, [facility] [address] [id number] [address] [place] [address], [place] [id number] 17 Feb, 2014 [facility] [address] [id number] [address] [place] [address], [place] [address] 17 Feb, 2014 [facility] [address] [id number] [address] [place] [id number] Feb, [facility] [address] [id number] [address] [place] [id number] Feb, [facility] [address] [id number] [address] [place] [id number] October, [facility] [address] [id number] [address] [place] [id number] October, [facility] [address] [id number] [address] [place] [id number] October, [facility] [address] [id number] [address] [place] [id number] October, [facility] [address] [id number] [address] [place] [id number] Sep, [facility] [address] [id number] [address] [place] [id number] Sep, [facility] [address] [id number] [address] [place] [id number] Sep, [facility] [address] [id number] [address] [place] [id number] Sep, [facility] [address] [id number] [address] [place] [id number] Jul, [facility] [address] [id number] [address] [place] [id number] Jul, [facility] [address] [id number] [address] [place] [id number] Jun, [facility] [address] [id number] [address] [place] [id number] Jun, [facility] [address] [id number] [address] [place] [id number] May, [facility] [address] [id number] [address] [place] [id number] May, IMMUNIZATIONS No Known Immunizations SOCIAL HISTORY Never Assessed REASON FOR VISIT Nasal drainage, sore throat, chest congestion with cough, headache, ear pain sta rted 3 days ago JStrasserRN PLAN OF CARE Activity Details Follow Up prn Reason: VITAL SIGNS Height 64 in 2017-07-02 Weight 296.4 lbs 2017-07-02 Temperature 98.5 degrees Fahrenheit 2017-07-02 Heart Rate 96 bpm 2017-07-02 Respiratory Rate 22 2017-07-02 BMI 50.87 kg/m2 2017-07-02 Blood pressure systolic 124 mmHg 2017-07-02 Blood pressure diastolic 80 mmHg 2017-07-02 MEDICATIONS Medication Instructions Dosage Frequency Start Date End Date Duration S tatus Hydrocodone-Ibuprofen 7.5-200 MG Orally 3 times a day 1 tablet as n eeded 8h Jun, 28 days Active Chantix 1 MG Orally Twice a day 1 tablet 12h 30 Not-Taking Lyrica 75 MG TAKE ONE CAPSULE BY MOUTH ONCE DAILY 30 Active Ambien 10 mg Orally Once a day 1 tablet at bedtime as needed 24h Not-Taking Tramadol HCl 50mg orally three times daily as needed TAKE 1 TABLET BY MOUTH THREE TIMES DAILY NEEDED Not-Taking Cymbalta 30 MG 1 CAPSULE ONCE A DAY ORALLY Not-Taking Duloxetine HCl 60 MG TAKE ONE CAPSULE BY MOUTH ONCE DAILY 30 Active RESULTS No Results PROCEDURES No Known procedures INSTRUCTIONS MEDICATIONS ADMINISTERED No Known Medications MEDICAL (GENERAL) HISTORY Type Description Date Medical History fibromyalgia Medical History insomnia Medical History obesity Surgical History ganglion cyst removal 1996 Surgical History section 2004 Hospitalization History surgeries
--- OUTSIDE RECORDS SUMMARY | 2020-01-12 20:06 | XMS REPORT ---
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 Phone MARY Smith Unavailable PROBLEMS Type Condition ICD9-CM Code HTE23-KO Code Onset Dates Condition S tatus SNOMED Code Problem Personal history of alcoholism F10.21 Active 084960621 Problem Fibromyalgia M79.7 Active 4720038 7 Problem Other chronic pain G89.29 Active 8 2307412 Problem Lumbago with sciatica, right side M54.41 Active 806273780079058 Problem Insomnia G47.00 Active 389228618 Problem Obesity E66.9 Active 644286109 Problem Lumbago with sciatica, left side M54.42 Active 107724306 Problem Chronic pain syndrome G89.4 Active 322946227 ALLERGIES Substance Reaction Event Type Date Status Tramadol HCl rash Drug Allergy Jan, Active Penicillin V Potassium Unknown Drug Allergy Jan, Activ e Clindamycin Unknown Drug Allergy Jan, Active ENCOUNTERS Encounter Location Date Diagnosis [facility] [address] [facility] [id number] [address] [place] [address] Aug, Fibromyalgia M79.7 and BMI 5 0.0-59.9, adult Z68.43 [facility] [address] [facility] [id number] [address] [place] [address] Aug, [facility] [address] [facility] [id number] [address] [place] [address] Aug, [facility] [address] [place] [id number] [address] [place] [address] Jul, [facility] [address] [facility] [id number] [address] [place] [address] Jul, Insomnia G47.00 [facility] [address] [place] [id number] [address] [place] [address] Jul, [facility] [address] [address] Jul, [facility] [address] [address] Jul, [facility] [address] [address] Jul, Fibromyalgia M79.7 [facility] [address] [address] Jul, [facility] [address] [address] Jun, Chronic pain syndrome G89.4 and Fibromyalgia M79.7 [facility] [address] [address] Jun, Fibromyalgia M79.7 [facility] [address] [address] Jun, Bronchitis J40 ; Fibromyalgi a M79.7 ; Lumbago with sciatica, left side M54.42 ; Lumbago with sciatica, right side M54.41 ; Other chronic pain G89.29 and BMI 45.0-49.9, adult Z68.42 [facility] [address] [place] [id number] [address] [place] [address] Jun, Influenza-like illness R69 [facility] [address] [address] Jun, [facility] [address] [address] Jun, Fibromyalgia M79.7 [facility] [address] [place] [id number] [address] [place] [address] May, Fibromyalgia M79.7 [facility] [address] [facility] [id number] [address] [place] [address] Apr, Insomnia G47.00 [facility] [address] [facility] [id number] [address] [place] [address] Apr, [facility] [address] [facility] [id number] [address] [place] [address] Apr, [facility] [address] [facility] [id number] [address] [place] [address] Apr, Fibromyalgia M79.7 [facility] [address] [facility] [id number] [address] [place] [address] 16 Mar, 2017 Encounter for immunization Z 23 [facility] [address] [facility] [id number] [address] [place] [id number] 10 Mar, 2017 Visit for TB skin test Z11.1 [facility] [address] [place] [id number] [address] [place] [address] Mar, Fibromyalgia M79.7 [facility] [address] [facility] [id number] [address] [place] [address] Feb, Fibromyalgia M79.7 [facility] [address] [facility] [id number] [address] [place] [address] Feb, [facility] [address] [place] [id number] [address] [place] [address] Feb, Fibromyalgia M79.7 [facility] [address] [facility] [id number] [address] [place] [address] Jan, Fibromyalgia M79.7 ; Obesity E66.9 ; Insomnia G47.00 and Chronic pain syndrome G89.4 [facility] [address] [facility] [id number] [address] [place] [address] Jan, [facility] [address] [facility] [id number] [address] [place] [address] Jan, [facility] [address] [facility] [id number] [address] [place] [address] Dec, [facility] [address] [id number] [address] [place] [address] Dec, [facility] [address] [id number] [address] [place] [address] Dec, [facility] [address] [facility] [id number] [address] [place] [address] Nov, Chronic pain syndrome G89.4 [facility] [address] [id number] [address] [place] [address] October, Chronic pain syndrome G89.4 [facility] [address] [id number] [address] [place] [phone] October, Chronic pain syndrome G89.4 [facility] [address] [id number] [address] [place] [address] October, [facility] [address] [id number] [address] [place] [address] October, Chronic pain syndrome G89.4 [facility] [address] [id number] [address] [place] [address] October, Chronic pain syndrome G89.4 and Fibromyalgia M79.7 [facility] [address] [id number] [address] [place] [address] October, Fibromyalgia M79.7 and Chron ic pain syndrome G89.4 [facility] [address] [id number] [address] [place] [address] Sep, Encounter for immunization Z 23 [facility] [address] [id number] [address] [place] [address] Sep, [facility] [address] [facility] [id number] [address] [place] [id number] Sep, [facility] [address] [facility] [id number] [address] [place] [address] Aug, Fibromyalgia M79.7 and Insom christo G47.00 [place] [id number] [place] [id number] [address] [place] [address] Aug, Obesity E66.9 ; Snoring R06. 83 ; Fibromyalgia M79.7 ; Insomnia G47.00 and Screening cholesterol level Z13.220 [place] [address] [address] Aug, Fibromyalgia M79.7 [place] [address] [address] Jul, Obesity E66.9 ; Personal his tory of alcoholism F10.21 and Fibromyalgia M79.7 [place] [address] [address] Jul, [place] [address] [address] Jun, Obesity E66.9 ; Chronic pain syndrome G89.4 ; Fibromyalgia M79.7 ; Insomnia G47.00 and Wellness examination Z00.00 [place] [address] [address] Jun, Personal history of alcoholi sm F10.21 and Chronic pain syndrome G89.4 [place] [address] [address] Jun, [place] [address] [address] Jun, Fibromyalgia M79.7 [place] [address] [address] May, Fibromyalgia M79.7 [place] [address] [address] May, [place] [address] [place] [id number] [place] [address] Apr, Obesity E66.9 ; Fibromyalgia M79.7 ; Insomnia G47.00 and Personal history of alcoholism F10.21 [place] [address] [id number] [address] [place] [address] Apr, [facility] [address] [id number] [address] [place] [address] Apr, [facility] [address] [id number] [address] [place] [address] Mar, [facility] [address] [id number] [address] [place] [address] Mar, [facility] [address] [id number] [address] [place] [address] Feb, [facility] [address] [id number] [address] [place] [address] Jan, [facility] [address] [id number] [address] [place] [address] Dec, Obesity E66.9 ; Fibromyalgia M79.7 ; Personal history of alcoholism F10.21 and Insomnia G47.00 [facility] [address] [id number] [address] [place] [address] Dec, Chronic pain syndrome G89.4 [facility] [address] [id number] [address] [place] [address] Dec, [facility] [address] [id number] [address] [place] [address] Dec, [facility] [address] [id number] [address] [place] [address] Nov, [facility] [address] [id number] [address] [place] [address] Nov, [facility] [address] [id number] [address] [place] [address] Nov, Fibromyalgia M79.7 ; Obesity E66.9 ; Personal history of alcoholism F10.21 ; Insomnia G47.00 and Chronic pain syndrome G89.4 [facility] [address] [id number] [address] [place] [address] Nov, Fibromyalgia M79.7 [facility] [address] [facility] [id number] [address] [place] [address] October, Fibromyalgia M79.7 [facility] [address] [facility] [id number] [address] [place] [address] October, Obesity E66.9 ; Fibromyalgia M79.7 ; Personal history of alcoholism F10.21 and Insomnia G47.00 [facility] [address] [facility] [id number] [address] [place] [address] Sep, [facility] [address] [facility] [id number] [place] [address] Aug, Fibromyalgia M79.7 ; Obesity E66.9 ; Personal history of alcoholism F10.21 and Insomnia G47.00 [facility] [address] [place] [id number] [place] [address] Aug, [facility] [address] [place] [id number] [address] [place] [address] Jul, [facility] [address] [place] [id number] [address] [place] [address] Jun, [facility] [address] [place] [id number] [address] [place] [address] Jun, [facility] [address] [place] [id number] [address] [place] [address] May, [facility] [address] [place] [id number] [address] [place] [address] May, Fibromyalgia M79.7 ; Obesity E66.9 and Insomnia G47.00 [facility] [address] [facility] [id number] [address] [place] [address] May, [facility] [address] [facility] [id number] [address] [place] [address] May, Fibromyalgia M79.7 ; Persona l history of alcoholism F10.21 ; Insomnia G47.00 and Obesity E66.9 [facility] [address] [facility] [id number] [address] [place] [address] Apr, [facility] [address] [place] [id number] [place] [address] Apr, Fibromyalgia M79.7 ; Obesity E66.9 ; Insomnia G47.00 ; Personal history of alcoholism F10.21 and Frequent falls R29.6 [place] [address] [place] [id number] [place] [address] Apr, Obesity E66.9 ; Fibromyalgia M79.7 and Insomnia G47.00 [place] [address] [address] Mar, [place] [address] [place] [id number] [place] [address] Mar, [place] [address] [address] Mar, [facility] [address] [address] Mar, Obesity E66.9 ; Fibromyalgia M79.7 and Personal history of alcoholism F10.21 [place] [address] [place] [id number] [place] [address] Feb, [place] [address] [address] Feb, Other malaise and fatigue 78 0.79 ; Abnormal weight gain 783.1 and Fibromyalgia 729.1 [place] [address] [place] [id number] [address] [place] [address] Jan, [place] [address] [address] Dec, [place] [address] [place] [id number] [place] [address] Dec, Fibromyalgia 729.1 and Abnor mal weight gain 783.1 [place] [address] [id number] [address] [place] [address] Dec, Unspecified myalgia and myos itis 729.1 ; Abnormal weight gain 783.1 and Fibromyalgia 729.1 [facility] [address] [id number] [address] [place] [address] Nov, [facility] [address] [id number] [address] [place] [address] Nov, Other malaise and fatigue 78 0.79 ; Unspecified myalgia and myositis 729.1 and Abnormal weight gain 783.1 [facility] [address] [id number] [address] [place] [phone] Nov, [facility] [address] [id number] [address] [place] [address] Nov, [facility] [address] [id number] [address] [place] [address] October, [facility] [address] [id number] [address] [place] [address] October, Unspecified myalgia and myos itis 729.1 and Scabies 133.0 [facility] [address] [id number] [address] [place] [address] October, [facility] [address] [id number] [address] [place] [address] Sep, [facility] [address] [id number] [address] [place] [address] Sep, [facility] [address] [id number] [address] [place] [address] Aug, [facility] [address] [id number] [address] [place] [address] Aug, [facility] [address] [facility] [id number] [address] [place] [phone] Aug, [facility] [address] [id number] [address] [place] [address], [place] [address] 17 Aug, 2014 [facility] [address] [id number] [address] [place] [address], [place] [address] 12 Aug, 2014 [facility] [address] [id number] [address] [place] [address], [place] [address] 12 Aug, 2014 [facility] [address] [id number] [address] [place] [address], [place] [address] 11 Aug, 2014 [facility] [address] [id number] [address] [place] [address], [place] [address] 11 Aug, 2014 [facility] [address] [id number] [address] [place] [address], [place] [address] 10 Aug, 2014 [facility] [address] [id number] [address] [place] [address], [place] [address] 10 Aug, 2014 [facility] [address] [id number] [address] [place] [address], [place] [address] May, [facility] [address] [id number] [address] [place] [address], [place] [address] May, [facility] [address] [id number] [address] [place] [address], [place] [address] Mar, [facility] [address] [id number] [address] [place] [address], [place] [address] Mar, [facility] [address] [id number] [address] [place] [address], [place] [address] Feb, [facility] [address] [id number] [address] [place] [address], [place] [address] 17 Feb, 2014 [facility] [address] [id number] [address] [place] [address], [place] [address] Feb, [facility] [address] [id number] [address] [place] [address], [place] [address] Feb, [facility] [address] [id number] [address] [place] [address], [place] [address] October, [facility] [address] [id number] [address] [place] [address] October, [facility] [address] [id number] [address] [place] [address] October, [facility] [address] [id number] [address] [place] [address] October, [facility] [address] [id number] [address] [place] [address] Sep, [facility] [address] [id number] [address] [place] [address] Sep, [facility] [address] [id number] [address] [place] [phone] Sep, [facility] [address] [id number] [address] [place] [address] Sep, [facility] [address] [id number] [address] [place] [phone] Jul, [facility] [address] [id number] [address] [place] [address] Jul, [facility] [address] [id number] [address] [place] [address] Jun, [facility] [address] [id number] [address] [place] [address] Jun, [facility] [address] [id number] [address] [place] [phone] May, [facility] [address] [id number] [address] [place] [phone] May, IMMUNIZATIONS No Known Immunizations SOCIAL HISTORY Never Assessed REASON FOR VISIT Fibromyalgia, pt is doing well states that she is still fatigued all the time, h as been having migraines not sure where they are coming from. David PLAN OF CARE Activity Details Follow Up 3 Months Reason: VITAL SIGNS Height 64 in 2017-02-02 Weight 266.8 lbs 2017-02-02 Temperature 98.1 degrees Fahrenheit 2017-02-02 Heart Rate 84 bpm 2017-02-02 Respiratory Rate 18 2017-02-02 BMI 45.79 kg/m2 2017-02-02 Blood pressure systolic 118 mmHg 2017-02-02 Blood pressure diastolic 82 mmHg 2017-02-02 MEDICATIONS Medication Instructions Dosage Frequency Start Date End Date Duration S dilciaus Duloxetine HCl 60 mg Orally Once a day 1 capsule 24h 30 Active Tramadol HCl 50mg orally three times daily as needed TAKE 1 TABLET BY MOUTH THREE TIMES DAILY NEEDED Not-Taking Ambien 10 mg Orally Once a day 1 tablet at bedtime as needed 24h 28 Active Cymbalta 30 MG 1 CAPSULE ONCE A DAY ORALLY Not-Taking Mobic 7.5 MG Orally 2 times a day 1 TABLET 2 TIMES A DAY ORALLY 12h May, 90 days Not-Taking Lyrica 75 MG TAKE ONE CAPSULE BY MOUTH ONCE DAILY 30 days Active Hydrocodone-Ibuprofen 7.5-200 MG Orally 3 [...]
--- OUTSIDE RECORDS SUMMARY | 2020-01-12 20:06 | XMS REPORT ---
Author Author Nani Smith Organization [facility] Address [address] [place] [address] Care Team Providers Care Dermatology Sales Representative Name Role Phone MARY Smith Unavailable PROBLEMS Type Condition ICD9-CM Code UMJ37-AS Code Onset Dates Condition S tatus SNOMED Code Problem Personal history of alcoholism F10.21 Active 959345625 Problem Fibromyalgia M79.7 Active 1477016 7 Problem Other chronic pain G89.29 Active 8 1820195 Problem Lumbago with sciatica, right side M54.41 Active [id number] Problem Insomnia G47.00 Active 752491735 Problem Obesity E66.9 Active 413465035 Problem Lumbago with sciatica, left side M54.42 Active 264966730 Problem Chronic pain syndrome G89.4 Active [id number] ALLERGIES No Information ENCOUNTERS Encounter Location Date Diagnosis [facility] [address] [address] Sep, [facility] [address] [id number] [address] [place] [address] Aug, Fibromyalgia M79.7 and BMI 5 0.0-59.9, adult Z68.43 [facility] [address] [id number] [address] [place] [address] Aug, [facility] [address] [id number] [address] [place] [address] Aug, [facility] [address] [address] Jul, [facility] [address] [id number] [address] [place] [address] Jul, Insomnia G47.00 [facility] [address] [facility] [id number] [address] [place] [address] Jul, [facility] [address] [address] Jul, [facility] [address] [id number] [address] [place] [address] Jul, [facility] [address] [address] Jul, Fibromyalgia M79.7 [facility] [address] [address] Jul, [facility] [address] [address] Jun, Chronic pain syndrome G89.4 and Fibromyalgia M79.7 [facility] [address] [address] Jun, Fibromyalgia M79.7 [facility] [address] [id number] [place] [address] Jun, Bronchitis J40 ; Fibromyalgi a M79.7 ; Lumbago with sciatica, left side M54.42 ; Lumbago with sciatica, right side M54.41 ; Other chronic pain G89.29 and BMI 45.0-49.9, adult Z68.42 [facility] [id number] [place] [address] Jun, Influenza-like illness R69 [facility] [address] [place] [address] Jun, [facility] [address] [address] Jun, Fibromyalgia M79.7 [facility] [address] [id number] [place] [address] May, Fibromyalgia M79.7 [facility] [address] [id number] [place] [address] Apr, Insomnia G47.00 [facility] [address] [facility] [id number] [address] [place] [address] Apr, [facility] [address] [facility] [id number] [address] [place] [address] Apr, [facility] [address] [id number] [address] [place] [address] Apr, Fibromyalgia M79.7 [facility] [address] [id number] [address] [place] [address] 16 Mar, 2017 Encounter for immunization Z 23 [facility] [id number] [place] [address] 10 Mar, 2017 Visit for TB skin test Z11.1 [facility] [id number] [place] [address] Mar, Fibromyalgia M79.7 [facility] [address] [id number] [address] [place] [address] Feb, Fibromyalgia M79.7 [facility] [id number] [place] [address] Feb, [facility] [id number] [place] [address] Feb, Fibromyalgia M79.7 [facility] [address] [id number] [address] [place] [address] Jan, Fibromyalgia M79.7 ; Obesity E66.9 ; Insomnia G47.00 and Chronic pain syndrome G89.4 [facility] [address] [id number] [address] [place] [address] Jan, [facility] [address] [id number] [address] [place] [address] Jan, [facility] [address] [id number] [address] [place] [address] Dec, [facility] [address] [id number] [address] [place] [address] Dec, [facility] [address] [id number] [address] [place] [address] Dec, [facility] [address] [id number] [address] [place] [address] Nov, Chronic pain syndrome G89.4 [facility] [address] [id number] [address] [place] [address] October, Chronic pain syndrome G89.4 [facility] [address] [id number] [address] [place] [address] October, Chronic pain syndrome G89.4 [facility] [address] [id number] [address] [place] [address] October, [facility] [address] [id number] [address] [place] [address] October, Chronic pain syndrome G89.4 [facility] [address] [id number] [address] [place] [address] October, Chronic pain syndrome G89.4 and Fibromyalgia M79.7 [facility] [address] [id number] [address] [place] [address] October, Fibromyalgia M79.7 and Chron ic pain syndrome G89.4 [facility] [address] [id number] [address] [place] [address] Sep, Encounter for immunization Z 23 [facility] [address] [id number] [address] [place] [address] Sep, [facility] [address] [facility] [id number] [address] [place] [address] Sep, [facility] [address] [facility] [id number] [address] [place] [address] Aug, Fibromyalgia M79.7 and Insom christo G47.00 [facility] [address] [address] Aug, Obesity E66.9 ; Snoring R06. 83 ; Fibromyalgia M79.7 ; Insomnia G47.00 and Screening cholesterol level Z13.220 [place] [address] [address] Aug, Fibromyalgia M79.7 [place] [address] [address] Jul, Obesity E66.9 ; Personal his tory of alcoholism F10.21 and Fibromyalgia M79.7 [place] [address] [address] Jul, [place] [address] [address] Jun, Obesity E66.9 ; Chronic pain syndrome G89.4 ; Fibromyalgia M79.7 ; Insomnia G47.00 and Wellness examination Z00.00 [place] [address] [address] Jun, Personal history of alcoholi sm F10.21 and Chronic pain syndrome G89.4 [place] [address] [address] Jun, [place] [address] [address] Jun, Fibromyalgia M79.7 [place] [address] [address] May, Fibromyalgia M79.7 [place] [address] [address] May, [place] [address] [address] Apr, Obesity E66.9 ; Fibromyalgia M79.7 ; Insomnia G47.00 and Personal history of alcoholism F10.21 [place] [id number] [place] [address] Apr, [facility] [address] [id number] [address] [place] [address] Apr, [facility] [address] [id number] [address] [place] [address] Mar, [facility] [address] [id number] [address] [place] [address] Mar, [facility] [address] [id number] [address] [place] [address] Feb, [facility] [address] [id number] [address] [place] [address] Jan, [facility] [address] [id number] [address] [place] [address] Dec, Obesity E66.9 ; Fibromyalgia M79.7 ; Personal history of alcoholism F10.21 and Insomnia G47.00 [facility] [address] [id number] [address] [place] [address] Dec, Chronic pain syndrome G89.4 [facility] [address] [id number] [address] [place] [address] Dec, [facility] [address] [facility] [id number] [address] [place] [address] Dec, [facility] [address] [id number] [address] [place] [address] Nov, [facility] [address] [id number] [address] [place] [address] Nov, [facility] [address] [facility] [id number] [address] [place] [address] Nov, Fibromyalgia M79.7 ; Obesity E66.9 ; Personal history of alcoholism F10.21 ; Insomnia G47.00 and Chronic pain syndrome G89.4 [facility] [address] [id number] [address] [place] [address] Nov, Fibromyalgia M79.7 [facility] [address] [id number] [address] [place] [address] October, Fibromyalgia M79.7 [facility] [address] [id number] [address] [place] [address] October, Obesity E66.9 ; Fibromyalgia M79.7 ; Personal history of alcoholism F10.21 and Insomnia G47.00 [facility] [address] [facility] [id number] [address] [place] [address] Sep, [facility] [address] [facility] [id number] [address] [place] [address] Aug, Fibromyalgia M79.7 ; Obesity E66.9 ; Personal history of alcoholism F10.21 and Insomnia G47.00 [facility] [address] [id number] [address] [place] [address] Aug, [facility] [address] [id number] [address] [place] [address] Jul, [facility] [address] [id number] [address] [place] [address] Jun, [facility] [id number] [place] [address] Jun, [facility] [address] [id number] [address] [place] [address] May, [facility] [address] [id number] [address] [place] [address] May, Fibromyalgia M79.7 ; Obesity E66.9 and Insomnia G47.00 [facility] [address] [id number] [address] [place] [address] May, [facility] [address] [id number] [address] [place] [address] May, Fibromyalgia M79.7 ; Persona l history of alcoholism F10.21 ; Insomnia G47.00 and Obesity E66.9 [place] [address] [address] Apr, [facility] [address] [address] Apr, Fibromyalgia M79.7 ; Obesity E66.9 ; Insomnia G47.00 ; Personal history of alcoholism F10.21 and Frequent falls R29.6 [place] [address] [address] Apr, Obesity E66.9 ; Fibromyalgia M79.7 and Insomnia G47.00 [place] [address] [address] Mar, [place] [address] [address] Mar, [place] [address] [address] Mar, [facility] [address] [address] Mar, Obesity E66.9 ; Fibromyalgia M79.7 and Personal history of alcoholism F10.21 [place] [address] [address] Feb, [place] [address] [address] Feb, Other malaise and fatigue 78 0.79 ; Abnormal weight gain 783.1 and Fibromyalgia 729.1 [place] [address] [address] Jan, [place] [address] [address] Dec, [place] [address] [address] Dec, Fibromyalgia 729.1 and Abnor mal weight gain 783.1 [place] [id number] [address] [place] [address] Dec, Unspecified myalgia and myos itis 729.1 ; Abnormal weight gain 783.1 and Fibromyalgia 729.1 [facility] [address] [id number] [address] [place] [address] Nov, [facility] [address] [id number] [address] [place] [address] Nov, Other malaise and fatigue 78 0.79 ; Unspecified myalgia and myositis 729.1 and Abnormal weight gain 783.1 [facility] [address] [id number] [address] [place] [address] Nov, [facility] [address] [id number] [address] [place] [address] Nov, [facility] [address] [facility] [id number] [address] [place] [address] October, [facility] [address] [id number] [address] [place] [address] October, Unspecified myalgia and myos itis 729.1 and Scabies 133.0 [facility] [address] [id number] [address] [place] [address] October, [facility] [address] [id number] [address] [place] [address] Sep, [facility] [address] [id number] [address] [place] [address] Sep, [facility] [address] [id number] [address] [place] [address] Aug, [facility] [address] [id number] [address] [place] [address] Aug, [facility] [address] [facility] [id number] [address] [place] [address] Aug, [facility] [address] [id number] [address] [place] [address], [place] [address] 17 Aug, 2014 [facility] [address] [id number] [address] [place] [address], [place] [address] 12 Aug, 2014 [facility] [address] [id number] [address] [place] [address], [place] [address] 12 Aug, 2014 [facility] [address] [id number] [address] [place] [place] [address], [place] [address] 11 Aug, 2014 [facility] [address] [id number] [address] [place] [place] [address], [place] [address] 11 Aug, 2014 [facility] [address] [id number] [address] [place] [place] [address], [place] [address] 10 Aug, 2014 [facility] [address] [id number] [address] [place] [place] [address], [place] [address] 10 Aug, 2014 [facility] [address] [id number] [address] [place] [address], [place] [address] May, [facility] [address] [id number] [address] [place] [address], [place] [address] May, [facility] [address] [id number] [address] [place] [place] [address], [place] [address] Mar, [facility] [address] [id number] [address] [place] [address], [place] [address] Mar, [facility] [address] [id number] [address] [place] [place] [address], [place] [address] 17 Feb, 2014 [facility] [address] [id number] [address] [place] [place] [address], [place] [address] 17 Feb, 2014 [facility] [address] [id number] [address] [place] [place] [address], [place] [address] Feb, [facility] [address] [id number] [address] [place] [place] [address], [place] [address] Feb, [facility] [address] [id number] [address] [place] [address], [place] [address] October, [facility] [address] [id number] [address] [place] [address] October, [facility] [address] [id number] [address] [place] [address] October, [facility] [address] [id number] [address] [place] [address] October, [facility] [address] [id number] [address] [place] [address] Sep, [facility] [address] [id number] [address] [place] [address] Sep, [facility] [address] [id number] [address] [place] [address] Sep, [facility] [address] [id number] [address] [place] [address] Sep, [facility] [address] [id number] [address] [place] [address] Jul, [facility] [address] [id number] [address] [place] [address] Jul, [facility] [address] [id number] [address] [place] [address] Jun, [facility] [address] [id number] [address] [place] [address] Jun, [facility] [address] [id number] [address] [place] [address] May, [facility] [address] [id number] [address] [place] [address] May, IMMUNIZATIONS No Known Immunizations SOCIAL HISTORY Never Assessed REASON FOR VISIT Requests return call PLAN OF CARE VITAL SIGNS MEDICATIONS Unknown Medications RESULTS No Results PROCEDURES No Known procedures INSTRUCTIONS MEDICATIONS ADMINISTERED No Known Medications MEDICAL (GENERAL) HISTORY Type Description Date Medical History fibromyalgia Medical History insomnia Medical History obesity Surgical History ganglion cyst removal 1996 Surgical History section 2003 Hospitalization History surgeries
--- OUTSIDE RECORDS SUMMARY | 2020-01-12 20:06 | XMS REPORT ---
Author Author Nani MARLEY Organization [facility] Address [address] [place] [address] Care Team Providers Care Loader Operator Name Role Phone HUBER MARLEY Unavailable PROBLEMS Type Condition ICD9-CM Code [id number] Code Onset Dates Condition S tatus SNOMED Code Problem Personal history of alcoholism F10.21 Active 398009758 Problem Fibromyalgia M79.7 Active 9014222 7 Problem Other chronic pain G89.29 Active 8 5113129 Problem Lumbago with sciatica, right side M54.41 Active 252338496775870 Problem Insomnia G47.00 Active 576650990 Problem Obesity E66.9 Active 634389357 Problem Lumbago with sciatica, left side M54.42 Active 134108838 Problem Chronic pain syndrome G89.4 Active [id number] ALLERGIES No Information ENCOUNTERS Encounter Location Date Diagnosis [facility] [address] [id number] [address] [place] [address] Aug, Fibromyalgia M79.7 and BMI 5 0.0-59.9, adult Z68.43 [facility] [address] [place] [address] Aug, [facility] [address] [id number] [address] [place] [address] Aug, [facility] [address] [place] [address] Jul, [facility] [address] [id number] [address] [place] [address] Jul, Insomnia G47.00 [facility] [address] [id number] [address] [place] [address] Jul, [facility] [id number] [place] [address] Jul, [facility] [address] [address] Jul, [facility] [address] [address] Jul, Fibromyalgia M79.7 [facility] [address] [address] Jul, [facility] [address] [address] Jun, Chronic pain syndrome G89.4 and Fibromyalgia M79.7 [facility] [address] [address] Jun, Fibromyalgia M79.7 [facility] [address] [address] Jun, Bronchitis J40 ; Fibromyalgi a M79.7 ; Lumbago with sciatica, left side M54.42 ; Lumbago with sciatica, right side M54.41 ; Other chronic pain G89.29 and BMI 45.0-49.9, adult Z68.[address] [facility] [id number] [address] [place] [address] Jun, Influenza-like illness R69 [facility] [address] [address] Jun, [facility] [address] [address] Jun, Fibromyalgia M79.7 [facility] [address] [address] May, Fibromyalgia M79.7 [facility] [address] [address] Apr, Insomnia G47.00 [facility] [address] [place] [address] Apr, [facility] [address] [facility] [id number] [address] [place] [address] Apr, [facility] [address] [facility] [id number] [address] [place] [address] Apr, Fibromyalgia M79.7 [facility] [address] [facility] [id number] [address] [place] [address] 16 Mar, 2017 Encounter for immunization Z 23 [facility] [address] [facility] [id number] [address] [place] [address] 10 Mar, 2017 Visit for TB skin test Z11.1 [facility] [address] [facility] [id number] [address] [place] [address] 04 Mar, 2017 Fibromyalgia M79.7 [facility] [address] [facility] [id number] [address] [place] [address] 12 Feb, 2017 Fibromyalgia M79.7 [facility] [address] [facility] [id number] [address] [place] [address] Feb, [facility] [address] [facility] [id number] [address] [place] [address] Feb, Fibromyalgia M79.7 [facility] [address] [facility] [id number] [address] [place] [address] Jan, Fibromyalgia M79.7 ; Obesity E66.9 ; Insomnia G47.00 and Chronic pain syndrome G89.4 [facility] [address] [facility] [id number] [address] [place] [address] Jan, [facility] [address] [facility] [id number] [address] [place] [address] Jan, [facility] [address] [facility] [id number] [address] [place] [address] Dec, [facility] [address] [facility] [id number] [address] [place] [address] Dec, [facility] [address] [facility] [id number] [address] [place] [address] Dec, [facility] [address] [facility] [id number] [address] [place] [address] Nov, Chronic pain syndrome G89.4 [facility] [address] [facility] [id number] [address] [place] [address] October, Chronic pain syndrome G89.4 [facility] [address] [id number] [address] [place] [address] October, Chronic pain syndrome G89.4 [facility] [address] [id number] [address] [place] [address] October, [facility] [address] [facility] [id number] [address] [place] [address] October, Chronic pain syndrome G89.4 [facility] [address] [facility] [id number] [address] [place] [address] October, Chronic pain syndrome G89.4 and Fibromyalgia M79.7 [facility] [address] [facility] [id number] [address] [place] [address] October, Fibromyalgia M79.7 and Chron ic pain syndrome G89.4 [facility] [address] [facility] [id number] [address] [place] [address] Sep, Encounter for immunization Z 23 [facility] [address] [facility] [id number] [address] [place] [address] Sep, [facility] [address] [facility] [id number] [address] [place] [address] Sep, [facility] [address] [facility] [id number] [address] [place] [address] Aug, Fibromyalgia M79.7 and Insom christo G47.00 [facility] [address] [facility] [id number] [address] [place] [address] Aug, Obesity E66.9 ; Snoring R06. 83 ; Fibromyalgia M79.7 ; Insomnia G47.00 and Screening cholesterol level Z13.220 [facility] [address] [facility] [id number] [address] [place] [address] Aug, Fibromyalgia M79.7 [facility] [address] [facility] [id number] [address] [place] [address] Jul, Obesity E66.9 ; Personal his tory of alcoholism F10.21 and Fibromyalgia M79.7 [facility] [address] [facility] [id number] [address] [place] [address] Jul, [facility] [address] [facility] [id number] [address] [place] [address] Jun, Obesity E66.9 ; Chronic pain syndrome G89.4 ; Fibromyalgia M79.7 ; Insomnia G47.00 and Wellness examination Z00.00 [facility] [address] [facility] [id number] [address] [place] [address] Jun, Personal history of alcoholi sm F10.21 and Chronic pain syndrome G89.4 [facility] [address] [facility] [id number] [address] [place] [address] Jun, [facility] [address] [facility] [id number] [address] [place] [address] Jun, Fibromyalgia M79.7 [facility] [address] [facility] [id number] [address] [place] [address] May, Fibromyalgia M79.7 [facility] [address] [facility] [id number] [address] [place] [address] May, [facility] [address] [facility] [id number] [address] [place] [address] Apr, Obesity E66.9 ; Fibromyalgia M79.7 ; Insomnia G47.00 and Personal history of alcoholism F10.21 [facility] [address] [facility] [id number] [address] [place] [address] Apr, [facility] [address] [facility] [id number] [address] [place] [address] Apr, [facility] [address] [id number] [address] [place] [address] Mar, [facility] [address] [id number] [address] [place] [address] Mar, [facility] [address] [facility] [id number] [address] [place] [address] Feb, [facility] [address] [id number] [address] [place] [address] Jan, [facility] [address] [id number] [address] [place] [address] Dec, Obesity E66.9 ; Fibromyalgia M79.7 ; Personal history of alcoholism F10.21 and Insomnia G47.00 [facility] [address] [facility] [id number] [address] [place] [address] Dec, Chronic pain syndrome G89.4 [facility] [address] [id number] [address] [place] [address] Dec, [facility] [address] [facility] [id number] [address] [place] [address] Dec, [facility] [address] [facility] [id number] [address] [place] [address] Nov, [facility] [address] [facility] [id number] [address] [place] [address] Nov, [facility] [address] [facility] [id number] [address] [place] [address] Nov, Fibromyalgia M79.7 ; Obesity E66.9 ; Personal history of alcoholism F10.21 ; Insomnia G47.00 and Chronic pain syndrome G89.4 [facility] [address] [facility] [id number] [address] [place] [address] Nov, Fibromyalgia M79.7 [facility] [address] [facility] [id number] [address] [place] [address] October, Fibromyalgia M79.7 [facility] [address] [facility] [id number] [address] [place] [address] October, Obesity E66.9 ; Fibromyalgia M79.7 ; Personal history of alcoholism F10.21 and Insomnia G47.00 [facility] [address] [facility] [id number] [address] [place] [address] Sep, [facility] [address] [facility] [id number] [address] [place] [address] Aug, Fibromyalgia M79.7 ; Obesity E66.9 ; Personal history of alcoholism F10.21 and Insomnia G47.00 [facility] [address] [facility] [id number] [address] [place] [address] Aug, [facility] [address] [facility] [id number] [address] [place] [address] Jul, [facility] [address] [facility] [id number] [address] [place] [address] Jun, [facility] [address] [facility] [id number] [address] [place] [address] Jun, [facility] [address] [facility] [id number] [address] [place] [phone] May, [facility] [address] [facility] [id number] [address] [place] [address] May, Fibromyalgia M79.7 ; Obesity E66.9 and Insomnia G47.00 [facility] [address] [facility] [id number] [address] [place] [address] May, [facility] [address] [facility] [id number] [address] [place] [address] May, Fibromyalgia M79.7 ; Persona l history of alcoholism F10.21 ; Insomnia G47.00 and Obesity E66.9 [facility] [address] [facility] [id number] [address] [place] [address] Apr, [facility] [address] [address] Apr, Fibromyalgia M79.7 ; Obesity E66.9 ; Insomnia G47.00 ; Personal history of alcoholism F10.21 and Frequent falls R29.6 [address] [id number] [place] [address] Apr, Obesity E66.9 ; Fibromyalgia M79.7 and Insomnia G47.00 [place] [address] [address] Mar, [address] [address] [address] Mar, [place] [address] [address] Mar, [place] [address] [address] Mar, Obesity E66.9 ; Fibromyalgia M79.7 and Personal history of alcoholism F10.21 [place] [address] [address] Feb, [place] [address] [address] Feb, Other malaise and fatigue 78 0.79 ; Abnormal weight gain 783.1 and Fibromyalgia 729.1 [address] [address] [address] Jan, [address] [address] [address] Dec, [place] [address] [address] Dec, Fibromyalgia 729.1 and Abnor mal weight gain 783.1 [place] [id number] [place] [address] Dec, Unspecified myalgia and myos itis 729.1 ; Abnormal weight gain 783.1 and Fibromyalgia 729.1 [facility] [address] [id number] [address] [place] [address] Nov, [facility] [address] [id number] [address] [place] [address] 10 Nov, 2014 Other malaise and fatigue 78 0.79 ; Unspecified myalgia and myositis 729.1 and Abnormal weight gain 783.1 [facility] [address] [id number] [address] [place] [address] Nov, [facility] [address] [id number] [address] [place] [address] Nov, [facility] [address] [id number] [address] [place] [address] October, [facility] [address] [id number] [address] [place] [address] October, Unspecified myalgia and myos itis 729.1 and Scabies 133.0 [facility] [address] [id number] [address] [place] [address] October, [facility] [address] [id number] [address] [place] [address] Sep, [facility] [address] [id number] [address] [place] [address] Sep, [facility] [address] [id number] [address] [place] [address] Aug, [facility] [address] [id number] [address] [place] [address] Aug, [facility] [address] [id number] [address] [place] [address] Aug, [facility] [address] [id number] [address] [place] [address] Aug, [facility] [address] [id number] [address] [place] [address] Aug, [facility] [address] [id number] [address] [place] [address], [place] [address] 12 Aug, 2014 [facility] [address] [id number] [address] [place] [address], [place] [address] Aug, [facility] [address] [id number] [address] [place] [address], [place] [address] Aug, [facility] [address] [id number] [address] [place] [address], [place] [address] Aug, [facility] [address] [id number] [address] [place] [address], [place] [address] Aug, [facility] [address] [id number] [address] [place] [address], [place] [address] May, [facility] [address] [id number] [address] [place] [address], [place] [address] May, [facility] [address] [id number] [address] [place] [address], [place] [address] Mar, [facility] [address] [id number] [address] [place] [address], [place] [address] Mar, [facility] [address] [id number] [address] [place] [address], [place] [address] Feb, [facility] [address] [id number] [address] [place] [address], [place] [address] Feb, [facility] [address] [id number] [address] [place] [address], [place] [address] Feb, [facility] [address] [id number] [address] [place] [address], [place] [address] Feb, [facility] [address] [id number] [address] [place] [address], [place] [address] October, [facility] [address] [id number] [address] [place] [address], [place] [address] October, [facility] [address] [id number] [address] [place] [address] October, [facility] [address] [id number] [address] [place] [address] October, [facility] [address] [id number] [address] [place] [address] Sep, [facility] [address] [id number] [address] [place] [address] Sep, [facility] [address] [id number] [address] [place] [address] Sep, [facility] [address] [id number] [address] [place] [address] Sep, [facility] [address] [id number] [address] [place] [address] Jul, [facility] [address] [id number] [address] [place] [address] Jul, [facility] [address] [id number] [address] [place] [address] Jun, [facility] [address] [id number] [address] [place] [address] Jun, [facility] [address] [id number] [address] [place] [address] May, [facility] [address] [id number] [address] [place] [address] May, IMMUNIZATIONS No Known Immunizations SOCIAL HISTORY Never Assessed REASON FOR VISIT Hydrocodone 05/19 PLAN OF CARE VITAL SIGNS MEDICATIONS Medication Instructions Dosage Frequency Start Date End Date Duration S tatus Hydrocodone-Ibuprofen 7.5-200 MG Orally 3 times a day 1 tablet as n eeded 8h May, 28 days Active RESULTS No Results PROCEDURES No Known procedures INSTRUCTIONS MEDICATIONS ADMINISTERED No Known Medications MEDICAL (GENERAL) HISTORY Type Description Date Medical History fibromyalgia Medical History insomnia Medical History obesity Surgical History ganglion cyst removal 1996 Surgical History section 2003 Hospitalization History surgeries
--- OUTSIDE RECORDS SUMMARY | 2020-01-12 20:07 | XMS REPORT | Continuity of Care Document ---
Demographics Preferred Language Unknown Marital Status Unknown Anabaptist Affiliation Unknown Race Unknown Ethnic Group Unknown Author Organization Unknown Address Unknown Phone Unavailable Allergies Active Description Code Type Severity Reaction Onset Reported/Identified Relationship to Patient Clinical Status Yes clindamycin Drug Allergy N/A N/A 07/15/2013 Yes Penicillin V Drug Allergy N/A N/A 07/15/2013 Yes clindamycin [id number] Drug Aller gy Unknown N/A 04/11/2014 Yes Penicillins [id number] Drug Aller gy Unknown N/A 04/11/2014 Yes sulfamethoxazole [id number] Drug Allergy Unknown N/A 09/26/2016 Yes tramadol [id number] Drug Allergy Unknown N/A 09/26/2016 Yes trimethoprim [id number] Drug Allergy Unknown N/A 09/26/2016 Medications There is no data. Problems Date Dx Coded Attending Type Code Diagnosis Diagnosed By 03/23/2008 HENRI THAPA APRN R 465.9 UPPER RESPIRATORY INFECTION 03/23/2008 HENRI THAPA APRN R 465.9 UPPER RESPIRATORY INFECTION 03/23/2008 VANESSA ALFONSO APRNIDI A 46 5.9 UPPER RESPIRATORY INFECTION 03/23/2008 ALANIS REDDING HENRI R 465.9 UPPER RESPIRATORY INFECTION 03/23/2008 ALANIS REDDING HENRI R 465.9 UPPER RESPIRATORY INFECTION 03/23/2008 KADEN REDDING JESSA A 46 5.9 UPPER RESPIRATORY INFECTION 03/23/2008 VANESSA ALFONSO APRNIDI A 46 5.9 UPPER RESPIRATORY INFECTION 03/23/2008 ALANIS REDDING HENRI R 465.9 UPPER RESPIRATORY INFECTION 03/23/2008 JUANCARLOS THAPA APRNINA R 465.9 UPPER RESPIRATORY INFECTION 05/19/2008 HENRI THAPA APRN R 682.9 CELLULITIS AND ABSCESS OF UNSPECIFIED SITES 05/19/2008 HENRI THAPA APRN R 698.9 PRURITUS NOS 05/19/2008 JUANCARLOS THAPA APRNINA R 782.1 RASH 05/19/2008 ALANIS REDDING HENRI R 919.4 INSECT BITE NONVENOMOUS OF OTHER MULTIPL E AND UNSPECIFIED SITES WITHOUT INFECTION 05/19/2008 ALANIS CHAIN MAKER MACHINE, HENRI R 682.9 CELLULITIS AND ABSCESS OF UNSPECIFIED SITES 05/19/2008 ALANIS CHAIN MAKER MACHINE, HENRI R 698.9 PRURITUS NOS 05/19/2008 ALANIS CHAIN MAKER MACHINE, HENRI R 782.1 RASH 05/19/2008 ALANIS CHAIN MAKER MACHINE, HENRI R 919.4 INSECT BITE NONVENOMOUS OF OTHER MULTIPL E AND UNSPECIFIED SITES WITHOUT INFECTION 05/19/2008 KADEN CHAIN MAKER MACHINE, JESSA A 68 2.9 CELLULITIS AND ABSCESS OF UNSPECIFIED SITES 05/19/2008 KADEN CHAIN MAKER MACHINE, JESSA A 69 8.9 PRURITUS NOS 05/19/2008 KADEN CHAIN MAKER MACHINE, JESSA A 78 2.1 RASH 05/19/2008 KADEN CHAIN MAKER MACHINE, JESSA A 91 9.4 INSECT BITE NONVENOMOUS OF OTHER MULTIPLE AND UNSPECIFIED SITES WITHOUT INFECTION 05/19/2008 ALANIS CHAIN MAKER MACHINE, HENRI R 682.9 CELLULITIS AND ABSCESS OF UNSPECIFIED SITES 05/19/2008 ALANIS CHAIN MAKER MACHINE, HENRI R 698.9 PRURITUS NOS 05/19/2008 ALANIS CHAIN MAKER MACHINE, HENRI R 782.1 RASH 05/19/2008 ALANIS CHAIN MAKER MACHINE, HENRI R 919.4 INSECT BITE NONVENOMOUS OF OTHER MULTIPL E AND UNSPECIFIED SITES WITHOUT INFECTION 05/19/2008 ALANIS CHAIN MAKER MACHINE, HENRI R 682.9 CELLULITIS AND ABSCESS OF UNSPECIFIED SITES 05/19/2008 ALANIS CHAIN MAKER MACHINE, HENRI R 698.9 PRURITUS NOS 05/19/2008 ALANIS CHAIN MAKER MACHINE, HENRI R 782.1 RASH 05/19/2008 ALANIS CHAIN MAKER MACHINE, HENRI R 919.4 INSECT BITE NONVENOMOUS OF OTHER MULTIPL E AND UNSPECIFIED SITES WITHOUT INFECTION 05/19/2008 KADEN CHAIN MAKER MACHINE, JESSA A 68 2.9 CELLULITIS AND ABSCESS OF UNSPECIFIED SITES 05/19/2008 KADEN CHAIN MAKER MACHINE, JESSA A 69 8.9 PRURITUS NOS 05/19/2008 KADEN CHAIN MAKER MACHINE, JESSA A 78 2.1 RASH 05/19/2008 KADEN CHAIN MAKER MACHINE, JESSA A 91 9.4 INSECT BITE NONVENOMOUS OF OTHER MULTIPLE AND UNSPECIFIED SITES WITHOUT INFECTION 05/19/2008 KADEN CHAIN MAKER MACHINE, JESSA A 68 2.9 CELLULITIS AND ABSCESS OF UNSPECIFIED SITES 05/19/2008 KADEN CHAIN MAKER MACHINE, JESSA A 69 8.9 PRURITUS NOS 05/19/2008 KADEN CHAIN MAKER MACHINE, JESSA A 78 2.1 RASH 05/19/2008 KADEN CHAIN MAKER MACHINE, JESSA A 91 9.4 INSECT BITE NONVENOMOUS OF OTHER MULTIPLE AND UNSPECIFIED SITES WITHOUT INFECTION 05/19/2008 ALANIS CHAIN MAKER MACHINE, HENRI R 682.9 CELLULITIS AND ABSCESS OF UNSPECIFIED SITES 05/19/2008 ALANIS CHAIN MAKER MACHINE, HENRI R 698.9 PRURITUS NOS 05/19/2008 ALANIS CHAIN MAKER MACHINE, HENRI R 782.1 RASH 05/19/2008 ALANIS CHAIN MAKER MACHINE, HENRI R 919.4 INSECT BITE NONVENOMOUS OF OTHER MULTIPL E AND UNSPECIFIED SITES WITHOUT INFECTION 05/19/2008 ALANIS CHAIN MAKER MACHINE, HENRI R 682.9 CELLULITIS AND ABSCESS OF UNSPECIFIED SITES 05/19/2008 ALANIS CHAIN MAKER MACHINE, HENRI R 698.9 PRURITUS NOS 05/19/2008 ALANIS CHAIN MAKER MACHINE, HENRI R 782.1 RASH 05/19/2008 ALANIS CHAIN MAKER MACHINE, HENRI R 919.4 INSECT BITE NONVENOMOUS OF OTHER MULTIPL E AND UNSPECIFIED SITES WITHOUT INFECTION 05/25/2008 ALANIS CHAIN MAKER MACHINE, HENRI R 729.5 PAIN IN LIMB 05/25/2008 ALANIS CHAIN MAKER MACHINE, HENRI R 729.5 PAIN IN LIMB 05/25/2008 KADEN REDDING JESSA A 72 9.5 PAIN IN LIMB 05/25/2008 ALANIS CHAIN MAKER MACHINE, HENRI R 729.5 PAIN IN LIMB 05/25/2008 ALANIS CHAIN MAKER MACHINE, HENRI R 729.5 PAIN IN LIMB 05/25/2008 KADENRicarda REDDING JESSA A 72 9.5 PAIN IN LIMB 05/25/2008 KADEN CHAIN MAKER MACHINE JESSA A 72 9.5 PAIN IN LIMB 05/25/2008 ALANIS CHAIN MAKER MACHINE, HENRI R 729.5 PAIN IN LIMB 05/25/2008 ALANIS CHAIN MAKER MACHINE, HENRI R 729.5 PAIN IN LIMB 05/26/2008 ALANIS CHAIN MAKER MACHINE, HENRI R V58.31 WOUND DRESSING 05/26/2008 ALANIS CHAIN MAKER MACHINE, HENRI R V58.31 WOUND DRESSING 05/26/2008 KADEN REDDING JESSA A V58.31 WOUND DRESSING 05/26/2008 ALANIS CHAIN MAKER MACHINE, HENRI R V58.31 WOUND DRESSING 05/26/2008 ALANIS CHAIN MAKER MACHINE, HENRI R V58.31 WOUND DRESSING 05/26/2008 KADEN CHAIN MAKER MACHINE, JESSA A V58.31 WOUND DRESSING 05/26/2008 KADEN CHAIN MAKER MACHINE, JESSA A V58.31 WOUND DRESSING 05/26/2008 ALANIS CHAIN MAKER MACHINE, HENRI R V58.31 WOUND DRESSING 05/26/2008 ALANIS CHAIN MAKER MACHINE, HENRI R V58.31 WOUND DRESSING 07/15/2013 ALANIS REDDING, HENRI R 783.1 ABNORMAL WEIGHT GAIN 07/15/2013 ALANIS AZEVEDON, HENRI R V11.3 PERSONAL HISTORY OF ALCOHOLISM 07/15/2013 ALANIS AZEVEDON, HENRI R 783.1 ABNORMAL WEIGHT GAIN 07/15/2013 ALANIS AZEVEDON, HENRI R V11.3 PERSONAL HISTORY OF ALCOHOLISM 07/15/2013 KADEN REDDING JESSA A 78 3.1 ABNORMAL WEIGHT GAIN 07/15/2013 KADENRicarda REDDING JESSA A V1 1.3 PERSONAL HISTORY OF ALCOHOLISM 07/15/2013 ALANIS REDDING, HENRI R 783.1 ABNORMAL WEIGHT GAIN 07/15/2013 ALANIS REDDING, HENRI R V11.3 PERSONAL HISTORY OF ALCOHOLISM 07/15/2013 ALANIS AZEVEDON, HENRI R 783.1 ABNORMAL WEIGHT GAIN 07/15/2013 ALANIS AZEVEDON, HENRI R V11.3 PERSONAL HISTORY OF ALCOHOLISM 07/15/2013 KADENRACHEL REDDING JESSA A 78 3.1 ABNORMAL WEIGHT GAIN 07/15/2013 KADEN APRN, JESSA A V1 1.3 PERSONAL HISTORY OF ALCOHOLISM 07/15/2013 KADENRicarda REDDING JESSA A 78 3.1 ABNORMAL WEIGHT GAIN 07/15/2013 KADENRicarda REDDING JESSA A V1 1.3 PERSONAL HISTORY OF ALCOHOLISM 07/15/2013 ALANIS AZEVEDON, HENRI R 783.1 ABNORMAL WEIGHT GAIN 07/15/2013 ALANIS AZEVEDON, HENRI R V11.3 PERSONAL HISTORY OF ALCOHOLISM 07/15/2013 ALANIS AZEVEDON, HENRI R 783.1 ABNORMAL WEIGHT GAIN 07/15/2013 ALANIS AZEVEDON, HENRI R V11.3 PERSONAL HISTORY OF ALCOHOLISM 08/03/2013 ALANIS REDDING HENRI R 305.1 NONDEPENDENT TOBACCO USE DISORDER 08/03/2013 KADEN REDDING JESSA A 30 5.1 NONDEPENDENT TOBACCO USE DISORDER 08/03/2013 ALANIS CHAIN MAKER MACHINE, HENRI R 305.1 NONDEPENDENT TOBACCO USE DISORDER 08/03/2013 ALANIS AZEVEDON, HENRI R 305.1 NONDEPENDENT TOBACCO USE DISORDER 08/03/2013 KADEN CHAIN MAKER MACHINE, JESSA A 30 5.1 NONDEPENDENT TOBACCO USE DISORDER 08/03/2013 KADEN CHAIN MAKER MACHINE, JESSA A 30 5.1 NONDEPENDENT TOBACCO USE DISORDER 08/03/2013 ALANIS REDDING, HENRI R 305.1 NONDEPENDENT TOBACCO USE DISORDER 08/03/2013 ALANIS AZEVEDON, HENRI R 305.1 NONDEPENDENT TOBACCO USE DISORDER 10/11/2013 KADEN CHAIN MAKER MACHINE, JESSA A 611.72 LUMP OR MASS IN BREAST 10/11/2013 KADEN REDDING, JESSA A V72.31 IT TECHNICAL SUPPORT SPECIALIST EXAM, ROUTINE 10/11/2013 KADEN REDDING, JESSA A V76.10 BREAST CANCER SCREENING 10/11/2013 ALANIS REDDING, HENRI R 611.72 LUMP OR MASS IN BREAST 10/11/2013 ALANIS REDDING HENRI R V72.31 IT TECHNICAL SUPPORT SPECIALIST EXAM, ROUTINE 10/11/2013 ALANIS REDDING, HENRI R V76.10 BREAST CANCER SCREENING 10/11/2013 ALANIS REDDING, HENRI R 611.72 LUMP OR MASS IN BREAST 10/11/2013 ALANIS REDDING, HENRI R V72.31 IT TECHNICAL SUPPORT SPECIALIST EXAM, ROUTINE 10/11/2013 ALANIS REDDING, HENRI R V76.10 BREAST CANCER SCREENING 10/11/2013 KADEN REDDING, JESSA A 611.72 LUMP OR MASS IN BREAST 10/11/2013 KADEN REDDING JESSA A V72.31 IT TECHNICAL SUPPORT SPECIALIST EXAM, ROUTINE 10/11/2013 KADEN REDDING JESSA A V76.10 BREAST CANCER SCREENING 10/11/2013 KADEN CHAIN MAKER MACHINE, JESSA A 611.72 LUMP OR MASS IN BREAST 10/11/2013 KADEN AZEVEDON, JESSA A V72.31 IT TECHNICAL SUPPORT SPECIALIST EXAM, ROUTINE 10/11/2013 KADEN AZEVEDON, JESSA A V76.10 BREAST CANCER SCREENING 10/11/2013 ALANIS REDDING, HENRI R 611.72 LUMP OR MASS IN BREAST 10/11/2013 ALANIS REDDING, HENRI R V72.31 IT TECHNICAL SUPPORT SPECIALIST EXAM, ROUTINE 10/11/2013 ALNAIS CHAIN MAKER MACHINE, HENRI R V76.10 BREAST CANCER SCREENING 10/11/2013 JUANCARLOS THAPA APRNINA R 611.72 LUMP OR MASS IN BREAST 10/11/2013 HENRI THAPA APRN R V72.31 IT TECHNICAL SUPPORT SPECIALIST EXAM, ROUTINE 10/11/2013 HENRI THAPA APRN R V76.10 BREAST CANCER SCREENING 02/23/2014 ALANIS REDDING HENRI R 625.3 DYSMENORRHEA 02/23/2014 KADEN CHAIN MAKER MACHINE, JESSA A 62 5.3 DYSMENORRHEA 02/23/2014 KADEN APRN, JESSA A 62 5.3 DYSMENORRHEA 02/23/2014 JUANCARLOS THAPA APRNINA R 625.3 DYSMENORRHEA 02/23/2014 JUANCARLOS THAPA APRNINA R 625.3 DYSMENORRHEA 04/11/2014 POLY FINCH, VIRGILIO [...] OTHER MALAISE AND FATIGUE 05/31/2015 MARY ARAUJO HARVEST WORKER FIELD CROP Ot G47.00 06/27/2015 MARY ARAUJO HARVEST WORKER FIELD CROP Ot G47.00 07/31/2015 MARY ARAUJO HARVEST WORKER FIELD CROP Ot G47.00 12/10/2015 DEBORAH FINCH, JOSE JUAN Peres Ot M25.50 PAIN IN UNSPECIFIED JOINT 12/10/2015 DEBORAH FINCH, JOSE JUAN Peres Ot M79.642 PAIN IN LEFT HAND 12/11/2015 DEBORAH FINCH, JOSE JUAN Peres Ot M25.50 PAIN IN UNSPECIFIED JOINT 12/11/2015 DEBORAH FINCH, JOSE JUAN Peres Ot M79.642 PAIN IN LEFT HAND 12/11/2015 MARY ARAUJO HARVEST WORKER FIELD CROP Ot G47.00 INSOMNIA, UNSPECIFIED 12/11/2015 DEBORAH FINCH, [...] PAIN IN LEFT HAND 04/25/2016 MARY ARAUJO HARVEST WORKER FIELD CROP Ot G47.00 INSOMNIA, UNSPECIFIED 04/25/2016 DEBORAH FINCH, ALI J Ot M25.50 PAIN IN UNSPECIFIED JOINT 04/25/2016 DEBORAH FINCH, ALI J Ot M79.642 PAIN IN LEFT HAND 04/25/2016 MARY ARAUJO Ot G47.00 INSOMNIA, UNSPECIFIED 04/25/2016 DEBORAH FINCH, ALI J Ot M25.50 PAIN IN UNSPECIFIED JOINT 04/25/2016 DEBORAH FINCH, ALI J Ot M79.642 PAIN IN LEFT HAND 09/26/2016 MARY ARAUJO HARVEST WORKER FIELD CROP Ot G47.00 INSOMNIA, UNSPECIFIED 09/26/2016 DEBORAH FINCH, [...] 09/27/2016 JASVIR AMADOR MD Ot Z79.899 OTHER SHEET ROCK APPLICATOR (CURRENT) DRUG THERAPY 09/29/2016 JASVIR AMADOR MD Ot G43.909 MIGRAINE, UNSP, NOT INTRACTABLE, WITHOUT 09/29/2016 JASVIR AMADOR MD Ot M79.7 FIBROMYALGIA 09/29/2016 JASVIR AMADOR MD Ot R11.2 NAUSEA WITH VOMITING, UNSPECIFIED 09/29/2016 JASVIR AMADOR MD Ot R19.7 DIARRHEA, UNSPECIFIED 09/29/2016 JASVIR AMADOR MD Ot Z79.899 OTHER PRISON (CURRENT) DRUG THERAPY 10/04/2016 JASVIR AMADOR MD Ot G43.909 MIGRAINE, UNSP, NOT INTRACTABLE, WITHOUT 10/04/2016 JASVIR AMADOR MD Ot M79.7 FIBROMYALGIA 10/04/2016 JASVIR AMADOR MD Ot R11.2 NAUSEA WITH VOMITING, UNSPECIFIED 10/04/2016 JASVIR AMADOR MD Ot R19.7 DIARRHEA, UNSPECIFIED 10/04/2016 JASVIR AMADOR MD Ot Z79.899 OTHER SHEET ROCK APPLICATOR (CURRENT) DRUG THERAPY 07/03/2017 RICK ACKERMAN MD Ot J10 .1 FLU DUE TO OTH IDENT INFLUENZA VIRUS W O 07/03/2017 RICK ACKERMAN MD Ot R50 .9 FEVER, UNSPECIFIED 07/03/2017 RICK ACKERMAN MD Ot Z87.59 PERSONAL HISTORY OF COMP OF PREG, CHLDBR 07/03/2017 MARY ARAUJO HARVEST WORKER FIELD CROP Ot G47.00 INSOMNIA, UNSPECIFIED 07/03/2017 DEBORAH FINCH, JOSE JUAN Peres Ot M25.50 PAIN IN UNSPECIFIED JOINT 07/03/2017 DEBORAH FINCH, JOSE JUAN Peres Ot M79.642 PAIN IN LEFT HAND 07/06/2017 RICK ACKERMAN MD Ot J10 .1 FLU DUE TO OTH IDENT INFLUENZA VIRUS W O 07/06/2017 RICK ACKERMAN MD Ot R50 .9 FEVER, UNSPECIFIED 07/06/2017 RICK ACKERMAN MD Ot Z87.59 PERSONAL HISTORY OF COMP OF PREG, CHLDBR 04/07/2018 RICK ACKERMAN MD Ot J10 .1 FLU DUE TO OTH IDENT INFLUENZA VIRUS W O 04/07/2018 RICK ACKERMAN MD Ot R50 .9 FEVER, UNSPECIFIED 04/07/2018 RICK ACKERMAN MD Ot Z87.59 PERSONAL HISTORY OF COMP OF PREG, CHLDBR Procedures Code Description [place] [address] ROUT INE VENIPUNCTURE 10/14/2013 87400 CBC 10/14/2013 61403 CMP 10/14/2013 69062 LIPI D PANEL 10/14/2013 9600638 GF R CALC (RESULT ONLY) 10/14/2013 62863 TSH 10/14/2013 09039 PREG MARELY TEST, URINE (IN- HOUSE) 03/01/2014 Results Test Result Range CBC With Differential/Platelet - 7 08:03 WBC 6.4 x10E3/uL 3.4-10.8 RBC 3.92 x10E6/uL 3.77-5.28 Hemoglobin 12.5 g/dL 11.1-15.9 Hematocrit 36.7 % 34.0-46.6 MCV 94 fL 79-97 MCH 31.9 pg 26.6-33.0 MCHC 34.1 g/dL 31.5-35.7 RDW 13.2 % 12.3-15.4 Platelets 289 x10E3/uL 150-379 Neutrophils 47 % Lymphs 35 % Monocytes 6 % Eos 12 % Basos 0 % Neutrophils (Absolute) 3.0 x10E3/uL 1.4- 7.0 Lymphs (Absolute) 2.2 x10E3/uL 0.7-3.1 Monocytes(Absolute) 0.4 x10E3/uL 0.1-0.9 Eos (Absolute) 0.8 x10E3/uL 0.0-0.4 Baso (Absolute) 0.0 x10E3/uL 0.0-0.2 Immature Granulocytes 0 % Immature Grans (Abs) 0.0 x10E3/uL 0.0-0. 1 Comp. Metabolic Panel (14) - 07/28/16 08 :03 Glucose, Serum 102 mg/dL 65-99 BUN 16 mg/dL 6-20 Creatinine, Serum 0.83 mg/dL 0.57-1.00 eGFR If NonAfricn Am 90 mL/min/1.73 >59 eGFR If Africn Am 103 mL/min/1.73 >5 9 BUN/Creatinine Ratio 19 8-20 Sodium, Serum 142 mmol/L 134-144 Potassium, Serum 4.6 mmol/L 3.5-5.2 Chloride, Serum 101 mmol/L 96-106 Carbon Dioxide, Total 24 mmol/L 18-29 Calcium, Serum 9.3 mg/dL 8.7-10.2 Protein, Total, Serum 6.4 g/dL 6.0-8.5 Albumin, Serum 4.0 g/dL 3.5-5.5 Globulin, Total 2.4 g/dL 1.5-4.5 A/G Ratio 1.7 1.1-2.5 Bilirubin, Total 0.3 mg/dL 0.0-1.2 Alkaline Phosphatase, S 65 IU/L 39-117 AST (SGOT) 15 IU/L 0-40 ALT (SGPT) 16 IU/L 0-32 Lipid Panel - 07/28/16 08:03 Cholesterol, Total 221 mg/dL 100-199 Triglycerides 145 mg/dL 0-149 HDL Cholesterol 51 mg/dL >39 VLDL Cholesterol Jassi 29 mg/dL 5-40 LDL Cholesterol Calc 141 mg/dL 0-99 CBC With Differential/Platelet - 7 11:21 WBC 8.1 x10E3/uL 3.4-10.8 RBC 3.90 x10E6/uL 3.77-5.28 Hemoglobin 12.8 g/dL 11.1-15.9 Hematocrit 37.5 % 34.0-46.6 MCV 96 fL 79-97 MCH 32.8 pg 26.6-33.0 MCHC 34.1 g/dL 31.5-35.7 RDW 13.5 % 12.3-15.4 Platelets 337 x10E3/uL 150-379 Neutrophils 59 % Lymphs 29 % Monocytes 5 % Eos 7 % Basos 0 % Neutrophils (Absolute) 4.9 x10E3/uL 1.4- 7.0 Lymphs (Absolute) 2.3 x10E3/uL 0.7-3.1 Monocytes(Absolute) 0.4 x10E3/uL 0.1-0.9 Eos (Absolute) 0.6 x10E3/uL 0.0-0.4 Baso (Absolute) 0.0 x10E3/uL 0.0-0.2 Immature Granulocytes 0 % Immature Grans (Abs) 0.0 x10E3/uL 0.0-0. 1 Comp. Metabolic Panel (14) - 09/05/16 11 :21 Glucose, Serum 93 mg/dL 65-99 BUN 19 mg/dL 6-20 Creatinine, Serum 0.92 mg/dL 0.57-1.00 eGFR If NonAfricn Am 79 mL/min/1.73 >59 eGFR If Africn Am 91 mL/min/1.73 >59 BUN/Creatinine Ratio 21 8-20 Sodium, Serum 139 mmol/L 134-144 Potassium, Serum 4.2 mmol/L 3.5-5.2 Chloride, Serum 100 mmol/L 96-106 Carbon Dioxide, Total 24 mmol/L 18-29 Calcium, Serum 9.7 mg/dL 8.7-10.2 Protein, Total, Serum 6.8 g/dL 6.0-8.5 Albumin, Serum 4.2 g/dL 3.5-5.5 Globulin, Total 2.6 g/dL 1.5-4.5 A/G Ratio 1.6 1.2-2.2 Bilirubin, Total 0.3 mg/dL 0.0-1.2 Alkaline Phosphatase, S 60 IU/L 39-117 AST (SGOT) 11 IU/L 0-40 ALT (SGPT) 13 IU/L 0-32 Lipid Panel - 09/05/16 11:21 Cholesterol, Total 208 mg/dL 100-199 Triglycerides 117 mg/dL 0-149 HDL Cholesterol 61 mg/dL >39 VLDL Cholesterol Jassi 23 mg/dL 5-40 LDL Cholesterol Calc 124 mg/dL 0-99 TSH - 09/05/16 11:21 TSH 1.870 uIU/mL 0.450-4.500 Complete blood count (CBC) with automate d white blood cell (WBC) differential - 09/26/16 22:57 Blood leukocytes automated count (number/volume) 10.6 10*3/uL 4.3-11.0 Blood erythrocytes automated count (number/volume) 4.00 10*6/uL 4.35-5.85 Venous blood hemoglobin measurement (mass/volume) 13.1 g/dL 11.5-16.0 Blood hematocrit (volume fraction) 38 % 35-52 Automated erythrocyte mean corpuscular volume 94 [ foz_us] 80-99 Automated erythrocyte mean corpuscular h emoglobin (mass per erythrocyte) 33 pg 25-34 Automated erythrocyte mean corpuscular h emoglobin concentration measurement (mass/volume) 35 g/dL 32-36 Automated erythrocyte distribution width ratio 12. 3 % 10.0- 14.5 Automated blood platelet count (count/volume) 344 10*3/uL [...] 10*3 1.0-4.0 Blood monocytes automated count (number/volume) 0. 4 10*3 0.0-1.0 Automated eosinophil count 0.0 10*3/uL 0 .0-0.3 Automated blood basophil count (count/volume) 0.0 10*3/uL 0.0-0.1 Complete urinalysis with reflex to cultu re - 09/26/16 22:57 Urine color determination YELLOW NRG Urine clarity determination SLIGHTLY CLOUDY NRG Urine pH measurement by test strip 8 5-9 Specific gravity of urine by test strip 1.010 1.016-1.022 Urine protein assay by test strip, semi-quantitative NEGATIVE NEGATIVE Urine glucose detection by automated test strip NE GATIVE NEGATIVE Erythrocytes detection in urine sediment by light micr oscopy NEGATIVE NEGATIVE Urine ketones detection by automated test strip NE GATIVE NEGATIVE Urine nitrite detection by test strip NEGATIVE NEGATIVE Urine total bilirubin detection by test strip NEGA TIVE NEGATIVE Urine urobilinogen measurement by automated test strip (mass/volume) NORMAL NORMAL Urine leukocyte esterase detection by dipstick 3+ NEGATIVE Automated urine sediment erythrocyte cou nt by microscopy (number/high power field) NONE NRG Automated urine sediment leukocyte count by microscopy (number/high power field) [HPF] NRG Bacteria detection in urine sediment by light microsco py TRACE NRG Squamous epithelial cells detection in u rine sediment by light microscopy 25-50 NRG Crystals detection in urine sediment by light microsco py PRESENT NRG Casts detection in urine sediment by light microscopy NONE NRG Mucus detection in urine sediment by light microscopy NEGATIVE NRG Complete urinalysis with reflex to culture NO NRG Amorphous sediment detection in urine sediment by ligh t microscopy LARGE AAKASH PHOSPHATE NRG Blood manual differential performed dete ction - 09/26/16 22:57 Blood monocytes/100 leukocytes 9 [...] 5-14 Serum or plasma urea nitrogen measurement (mass/volume ) 19 mg/dL 7-18 Serum or plasma creatinine measurement (mass/volume) 0.85 mg/dL 0.60-1.30 Serum or plasma urea nitrogen/creatinine mass ratio 22 NRG Serum or plasma creatinine measurement w ith calculation of estimated glomerular filtration rate > NRG Serum or plasma glucose measurement (mass/volume) 114 mg/dL 70-105 Serum or plasma calcium measurement (mass/volume) 10.1 mg/dL 8.5-10.1 Serum or plasma total bilirubin measurement (mass/volu me) 0.4 mg/dL 0.1-1.0 Serum or plasma alkaline phosphatase levi surement (enzymatic activity/volume) 65 U/L 40-136 Serum or plasma aspartate aminotransfera se measurement (enzymatic activity/volume) 29 U/L 5-34 Serum or plasma alanine aminotransferase measurement (enzymatic activity/volume) 31 U/L 0-55 Serum or plasma protein measurement (mass/volume) 7.2 g/dL 6.4-8.2 Serum or plasma albumin measurement (mass/volume) 4.3 g/dL 3.2-4.5 Complete blood count (CBC) with automate d white blood cell (WBC) differential - 07/03/17 09:05 Blood leukocytes automated count (number/volume) 5.9 10*3/uL 4.3-11.0 Blood erythrocytes automated count (number/volume) 3.62 10*6/uL 4.35-5.85 Venous blood hemoglobin measurement (mass/volume) 12.4 g/dL 11.5-16.0 Blood hematocrit (volume fraction) 36 % 35-52 Automated erythrocyte mean corpuscular volume 98 [ foz_us] 80-99 Automated erythrocyte mean corpuscular h emoglobin (mass per erythrocyte) 34 pg 25-34 Automated erythrocyte mean corpuscular h emoglobin concentration measurement (mass/volume) 35 g/dL 32-36 Automated erythrocyte distribution width ratio 13. 3 % 10.0- 14.5 Automated blood platelet count (count/volume) 267 10*3/uL 130-400 Automated blood platelet mean volume measurement 8.2 [foz_us] 7.4-10.4 Automated blood neutrophils/100 leukocytes 66 % 42-75 Automated blood lymphocytes/100 leukocytes 15 % 12-44 Blood monocytes/100 leukocytes 8 % 0-12 Automated blood eosinophils/100 leukocytes 11 % 0-10 Automated blood basophils/100 leukocytes 0 % 0-10 Blood neutrophils automated count (number/volume) 3.9 10*3 1.8-7.8 Blood lymphocytes automated count (number/volume) 0.9 10*3 1.0-4.0 Blood monocytes automated count (number/volume) 0. 5 10*3 0.0-1.0 Automated eosinophil count 0.6 10*3/uL 0 .0-0.3 Automated blood basophil count (count/volume) 0.0 10*3/uL 0.0-0.1 Comprehensive metabolic panel - 07/03/17 09:05 Serum or plasma sodium measurement (moles/volume) 138 mmol/L 135-145 Serum or plasma potassium measurement (moles/volume) 4.3 mmol/L 3.6-5.0 Serum or plasma chloride measurement (moles/volume) 104 mmol/L 98-107 Carbon dioxide 23 mmol/L 21-32 Serum or plasma anion gap determination (moles/volume) 11 mmol/L 5-14 Serum or plasma urea nitrogen measurement (mass/volume ) 14 mg/dL 7-18 Serum or plasma creatinine measurement (mass/volume) 0.98 mg/dL 0.60-1.30 Serum or plasma urea nitrogen/creatinine mass ratio 14 NRG Serum or plasma creatinine measurement w ith calculation of estimated glomerular filtration rate > NRG Serum or plasma glucose measurement (mass/volume) 112 mg/dL 70-105 Serum or plasma calcium measurement (mass/volume) 8.9 mg/dL 8.5-10.1 Serum or plasma total bilirubin measurement (mass/volu me) 0.3 mg/dL 0.1-1.0 Serum or plasma alkaline phosphatase levi surement (enzymatic activity/volume) 68 U/L 40-136 Serum or plasma aspartate aminotransfera se measurement (enzymatic activity/volume) 21 U/L 5-34 Serum or plasma alanine aminotransferase measurement (enzymatic activity/volume) 25 U/L 0-55 Serum or plasma protein measurement (mass/volume) 7.1 g/dL 6.4-8.2 Serum or plasma albumin measurement (mass/volume) 4.0 g/dL 3.2-4.5 Encounters ACCT No. Visit Date/Time Discharge Status Pt. Type Provider Facility Loc./Unit Complaint [id number] 07/29/2016 12:09:00 Document Registration [id number] 09/06/2016 11:07:00 Document Registration [id number] 07/03/2017 08:15:00 018 10:02:00 DIS Outpatient MEKA FINCH, RICK Rodriguez [facility] ER DIZZINESS,DIFFICULTY BR EATHING,FEVER [id number] 09/26/2016 22:16:00 017 01:21:00 DIS Emergency PERRY FINCH, JASVIR Causey [facility] ER MIGRANE, N/V, D IZZINESS [id number] 12/07/2015 14:51:00 016 23:59:59 CLS Outpatient DEBORAH FINCH, JOSE JUAN Peres [facility] RAD PAIN L HAND [id number] 05/17/2015 14:50:00 015 23:59:59 CLS Outpatient MARY ARAUJO [facility] RAD INSOMNIA [id number] 04/11/2014 13:58:00 014 18:15:00 DIS Emergency POLY FINCH, VIRGILIO Sanchez [facility] ER ABD PAIN/BURNIN G [id number] 01/03/2020 18:20:00 01/03/2020 23:59:5 9 CLS Out[facility]LL [facility] [id number] 08/23/2014 08:06:00 08/23/2014 23:59: 59 CLS Outpatient HENRI THAPA APRN [id number] 05/18/2014 10:31:00 05/18/2014 23:59: 59 CLS Outpatient HENRI THAPA APRN [id number] 03/01/2014 08:23:00 03/01/2014 23:59: 59 CLS Outpatient JESSA ALFONSO APRN [id number] 03/01/2014 08:23:00 03/01/2014 23:59: 59 CLS Outpatient JESSA ALFONSO APRN [id number] 02/23/2014 10:23:00 02/23/2014 23:59: 59 CLS Outpatient HENRI THAPA APRN [id number] 10/14/2013 08:12:00 10/14/2013 23:59: 59 CLS Outpatient HENRI THAPA APRN [id number] 10/11/2013 10:56:00 10/11/2013 23:59: 59 CLS Outpatient JESSA ALFONSO APRN [id number] 08/03/2013 11:03:00 08/03/2013 23:59: 59 CLS Outpatient HENRI THAPA APRN [id number] 07/15/2013 10:55:00 07/15/2013 23:59: 59 CLS Outpatient HENRI THAPA APRN R
--- OUTSIDE RECORDS SUMMARY | 2020-01-12 20:07 | XMS REPORT ---
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 Name Role Phone MARY Smith Unavailable PROBLEMS Type Condition ICD9-CM Code PHB21-JQ Code Onset Dates Condition S tatus SNOMED Code Problem Personal history of alcoholism F10.21 Active 574141416 Problem Fibromyalgia M79.7 Active 0197609 7 Problem Other chronic pain G89.29 Active 8 1385414 Problem Lumbago with sciatica, right side M54.41 Active 608159345823818 Problem Insomnia G47.00 Active 446577464 Problem Obesity E66.9 Active 162585850 Problem Lumbago with sciatica, left side M54.42 Active 228873018 Problem Chronic pain syndrome G89.4 Active 288265769 ALLERGIES No Information ENCOUNTERS Encounter Location Date Diagnosis [facility] [address] [address] Sep, [facility] [id number] [place] [address] Aug, Fibromyalgia M79.7 and BMI 5 0.0-59.9, adult Z68.43 [facility] [id number] [place] [address] Aug, [facility] [address] [address] Aug, [facility] [address] [address] Jul, [facility] [id number] [place] [address] Jul, Insomnia G47.00 [facility] [address] [facility] [id number] [address] [place] [address] Jul, [facility] [address] [address] Jul, [facility] [id number] [place] [address] Jul, [facility] [address] [address] Jul, Fibromyalgia M79.7 [facility] [address] [address] Jul, [facility] [address] [address] Jun, Chronic pain syndrome G89.4 and Fibromyalgia M79.7 [facility] [address] [address] Jun, Fibromyalgia M79.7 [facility] [id number] [place] [address] Jun, Bronchitis J40 ; Fibromyalgi a M79.7 ; Lumbago with sciatica, left side M54.42 ; Lumbago with sciatica, right side M54.41 ; Other chronic pain G89.29 and BMI 45.0-49.9, adult Z68.42 [facility] [id number] [place] [address] Jun, Influenza-like illness R69 [facility] [id number] [place] [address] Jun, [facility] [address] [address] Jun, Fibromyalgia M79.7 [facility] [id number] [place] [address] May, Fibromyalgia M79.7 [facility] [id number] [place] [address] Apr, Insomnia G47.00 [facility] [address] [facility] [id number] [address] [place] [address] Apr, [facility] [address] [facility] [id number] [address] [place] [address] Apr, [facility] [address] [id number] [address] [place] [address] Apr, Fibromyalgia M79.7 [facility] [address] [id number] [address] [place] [address] 16 Mar, 2017 Encounter for immunization Z 23 [facility] [id number] [place] [address] 10 Mar, 2017 Visit for TB skin test Z11.1 [facility] [id number] [place] [address] Mar, Fibromyalgia M79.7 [facility] [id number] [address] [place] [address] Feb, Fibromyalgia M79.7 [facility] [id number] [place] [address] Feb, [facility] [id number] [place] [address] Feb, Fibromyalgia M79.7 [facility] [id number] [address] [place] [address] Jan, Fibromyalgia M79.7 ; Obesity E66.9 ; Insomnia G47.00 and Chronic pain syndrome G89.4 [facility] [id number] [address] [place] [address] Jan, [facility] [id number] [address] [place] [address] Jan, [facility] [id number] [address] [place] [address] Dec, [facility] [address] [id number] [address] [place] [address] Dec, [facility] [address] [id number] [address] [place] [address] Dec, [facility] [address] [id number] [address] [place] [address] Nov, Chronic pain syndrome G89.4 [facility] [address] [id number] [address] [place] [address] October, Chronic pain syndrome G89.4 [facility] [address] [id number] [address] [place] [address] October, Chronic pain syndrome G89.4 [facility] [address] [id number] [address] [place] [address] October, [facility] [address] [id number] [address] [place] [address] October, Chronic pain syndrome G89.4 [facility] [address] [id number] [address] [place] [address] October, Chronic pain syndrome G89.4 and Fibromyalgia M79.7 [facility] [address] [id number] [address] [place] [address] October, Fibromyalgia M79.7 and Chron ic pain syndrome G89.4 [facility] [address] [id number] [address] [place] [address] Sep, Encounter for immunization Z 23 [facility] [address] [id number] [address] [place] [address] Sep, [facility] [address] [facility] [id number] [address] [place] [address] Sep, [facility] [address] [facility] [id number] [address] [place] [address] Aug, Fibromyalgia M79.7 and Insom christo G47.00 [facility] [address] [address] Aug, Obesity E66.9 ; Snoring R06. 83 ; Fibromyalgia M79.7 ; Insomnia G47.00 and Screening cholesterol level Z13.220 [place] [address] [address] Aug, Fibromyalgia M79.7 [place] [address] [address] Jul, Obesity E66.9 ; Personal his tory of alcoholism F10.21 and Fibromyalgia M79.7 [place] [address] [address] Jul, [place] [address] [address] Jun, Obesity E66.9 ; Chronic pain syndrome G89.4 ; Fibromyalgia M79.7 ; Insomnia G47.00 and Wellness examination Z00.00 [place] [address] [address] Jun, Personal history of alcoholi sm F10.21 and Chronic pain syndrome G89.4 [place] [address] [address] Jun, [place] [address] [address] Jun, Fibromyalgia M79.7 [place] [address] [address] May, Fibromyalgia M79.7 [place] [address] [address] May, [place] [address] [address] Apr, Obesity E66.9 ; Fibromyalgia M79.7 ; Insomnia G47.00 and Personal history of alcoholism F10.21 [place] [id number] [place] [address] Apr, [facility] [address] [id number] [address] [place] [address] Apr, [facility] [address] [id number] [address] [place] [address] Mar, [facility] [address] [id number] [address] [place] [address] Mar, [facility] [address] [id number] [address] [place] [address] Feb, [facility] [address] [id number] [address] [place] [address] Jan, [facility] [address] [id number] [address] [place] [address] Dec, Obesity E66.9 ; Fibromyalgia M79.7 ; Personal history of alcoholism F10.21 and Insomnia G47.00 [facility] [address] [id number] [address] [place] [address] Dec, Chronic pain syndrome G89.4 [facility] [address] [id number] [address] [place] [address] Dec, [facility] [address] [facility] [id number] [address] [place] [address] Dec, [facility] [address] [id number] [address] [place] [address] Nov, [facility] [address] [id number] [address] [place] [address] Nov, [facility] [address] [facility] [id number] [address] [place] [address] Nov, Fibromyalgia M79.7 ; Obesity E66.9 ; Personal history of alcoholism F10.21 ; Insomnia G47.00 and Chronic pain syndrome G89.4 [facility] [address] [id number] [address] [place] [address] Nov, Fibromyalgia M79.7 [facility] [id number] [address] [place] [address] October, Fibromyalgia M79.7 [facility] [id number] [address] [place] [address] October, Obesity E66.9 ; Fibromyalgia M79.7 ; Personal history of alcoholism F10.21 and Insomnia G47.00 [facility] [address] [facility] [id number] [address] [place] [address] Sep, [facility] [address] [facility] [id number] [address] [place] [address] Aug, Fibromyalgia M79.7 ; Obesity E66.9 ; Personal history of alcoholism F10.21 and Insomnia G47.00 [facility] [id number] [address] [place] [address] Aug, [facility] [id number] [place] [address] Jul, [facility] [id number] [address] [place] [address] Jun, [facility] [id number] [place] [address] Jun, [facility] [id number] [address] [place] [address] May, [facility] [id number] [place] [address] May, Fibromyalgia M79.7 ; Obesity E66.9 and Insomnia G47.00 [facility] [id number] [address] [place] [address] May, [facility] [id number] [place] [address] May, Fibromyalgia M79.7 ; Persona l history of alcoholism F10.21 ; Insomnia G47.00 and Obesity E66.9 [place] [id number] [address] Apr, [facility] [address] [address] Apr, Fibromyalgia M79.7 ; Obesity E66.9 ; Insomnia G47.00 ; Personal history of alcoholism F10.21 and Frequent falls R29.6 [place] [address] [address] Apr, Obesity E66.9 ; Fibromyalgia M79.7 and Insomnia G47.00 [place] [address] [address] Mar, [place] [address] [address] Mar, [place] [address] [address] Mar, [facility] [address] [address] Mar, Obesity E66.9 ; Fibromyalgia M79.7 and Personal history of alcoholism F10.21 [place] [address] [address] Feb, [place] [address] [address] Feb, Other malaise and fatigue 78 0.79 ; Abnormal weight gain 783.1 and Fibromyalgia 729.1 [place] [address] [address] Jan, [place] [address] [address] Dec, [place] [address] [address] Dec, Fibromyalgia 729.1 and Abnor mal weight gain 783.1 [place] [id number] [place] [address] Dec, Unspecified myalgia and myos itis 729.1 ; Abnormal weight gain 783.1 and Fibromyalgia 729.1 [facility] [address] [id number] [address] [place] [address] Nov, [facility] [address] [id number] [address] [place] [address] Nov, Other malaise and fatigue 78 0.79 ; Unspecified myalgia and myositis 729.1 and Abnormal weight gain 783.1 [facility] [address] [id number] [address] [place] [address] Nov, [facility] [address] [id number] [address] [place] [address] Nov, [facility] [address] [facility] [id number] [address] [place] [address] October, [facility] [address] [id number] [address] [place] [address] October, Unspecified myalgia and myos itis 729.1 and Scabies 133.0 [facility] [address] [id number] [address] [place] [address] October, [facility] [address] [id number] [address] [place] [address] Sep, [facility] [address] [id number] [address] [place] [address] Sep, [facility] [address] [id number] [address] [place] [address] Aug, [facility] [address] [id number] [address] [place] [address] Aug, [facility] [address] [facility] [id number] [address] [place] [address] Aug, [facility] [address] [id number] [address] [place] [address], [place] [address] 17 Aug, 2014 [facility] [address] [id number] [address] [place] [address], [place] [address] 12 Aug, 2014 [facility] [address] [id number] [address] [place] [address], [place] [address] 12 Aug, 2014 [facility] [address] [id number] [address] [place] [address], [place] [address] 11 Aug, 2014 [facility] [address] [id number] [address] [place] [address], [place] [address] 11 Aug, 2014 [facility] [address] [id number] [address] [place] [address], [place] [address] 10 Aug, 2014 [facility] [address] [id number] [address] [place] [address], [place] [address] 10 Aug, 2014 [facility] [address] [id number] [address] [place] [address], [place] [address] May, [facility] [address] [id number] [address] [place] [address], [place] [address] May, [facility] [address] [id number] [address] [place] [address], [place] [address] Mar, [facility] [address] [id number] [address] [place] [address], [place] [address] Mar, [facility] [address] [id number] [address] [place] [address], [place] [address] 17 Feb, 2014 [facility] [address] [id number] [address] [place] [address], [place] [address] 17 Feb, 2014 [facility] [address] [id number] [address] [place] [address], [place] [address] Feb, [facility] [address] [id number] [address] [place] [address], [place] [address] Feb, [facility] [address] [id number] [address] [place] [address], [place] [address] October, [facility] [address] [id number] [address] [place] [address] October, [facility] [address] [id number] [address] [place] [address] October, [facility] [address] [id number] [address] [place] [address] October, [facility] [address] [id number] [address] [place] [address] Sep, [facility] [address] [id number] [address] [place] [address] Sep, [facility] [address] [id number] [address] [place] [address] Sep, [facility] [address] [id number] [address] [place] [address] Sep, [facility] [address] [id number] [address] [place] [address] Jul, [facility] [address] [id number] [address] [place] [address] Jul, [facility] [address] [id number] [address] [place] [address] Jun, [facility] [address] [id number] [address] [place] [address] Jun, [facility] [address] [id number] [address] [place] [address] May, [facility] [address] [id number] [address] [place] [address] May, IMMUNIZATIONS No Known Immunizations SOCIAL HISTORY Never Assessed REASON FOR VISIT Controlled Refill Request PLAN OF CARE VITAL SIGNS MEDICATIONS Medication Instructions Dosage Frequency Start Date End Date Duration S tatus Lyrica 75 MG Orally one time 1 capsule 28 A ctive RESULTS No Results PROCEDURES No Known procedures INSTRUCTIONS MEDICATIONS ADMINISTERED No Known Medications MEDICAL (GENERAL) HISTORY Type Description Date Medical History fibromyalgia Medical History insomnia Medical History obesity Surgical History ganglion cyst removal 1996 Surgical History section 2004 Hospitalization History surgeries
[2020-01-12] MEDS ORDERED: NS IV 1000 ML 1,000 ML IV SCH (20:21)
[2020-01-12] MEDS ORDERED: fentaNYL INJECTION 100 MCG/2 ML AMP IVP ONE (20:30)
[2020-01-12] MEDS ORDERED: PROMETHAZINE INJ 25 MG/ML (PHENERGAN) AMP IVP ONE (20:30)
[2020-01-12] MEDS ORDERED: diphenhydrAMINE 25 MG TAB (BENADRYL) PO ONE (20:30)
--- NOTE | 2020-01-12 20:52 | NUR ---
Pt resting at this time. States her headache has improved since meds have been administered.
[2020-01-12 21:14] VITALS: BP 146/99
== END 2020-01-12 21:20 | disposition home or self-care (01) ==
LOC: EDUNIT# 17:17 → ER 17:18
DX: H61.002 Unspecified perichondritis of left external ear (principal); R51 Headache; I10 Essential (primary) hypertension; M79.7 Fibromyalgia; Z88.0 Allergy status to penicillin; Z88.1 Allergy status to other antibiotic agents; Z88.2 Allergy status to sulfonamides; Z88.5 Allergy status to narcotic agent; Z79.52 Long term (current) use of systemic steroids
CPT/HCPCS: 36415; 70450; 80048; 84703; 85007; 85027; 86141

== ENCOUNTER → 2020-03-05 | Outpatient (CLI) | payer MEDICAID ==
[~2020-03-05] MED LIST changes: +NAPR-1071 PO
--- NOTE | 2020-03-05 10:26 | Diagnostic Imaging Report ---
PROCEDURE: MRI right joint lower extremity without contrast. TECHNIQUE: Multiplanar, multisequence non contrast-enhanced MRI of the right lower extremity was accomplished. INDICATION: Achilles tendon injury. COMPARISON: None. FINDINGS: No acute fracture or dislocation is seen in the right ankle and hindfoot. The calcaneal pitch appears increased with a small pes cavus appearance. There are mild degenerative changes at the tibiotalar joint. There is mild bone marrow edema in the cuboid which may be degenerative or stress-related. The anterior and posterior syndesmotic ligaments are intact. The anterior talofibular ligament appears to be chronically torn. The calcaneofibular ligament is thickened which is likely from remote injury. The posterior talofibular ligament is intact. The deep fibers of the deltoid ligament demonstrate partial tearing posteriorly. The spring ligament appears intact. The plantar fascia is thickened with a small plantar calcaneal enthesophyte. The sinus tarsi demonstrates normal fatty signal. The Achilles tendon demonstrates a complete tear distally at the calcaneal insertion with proximal retraction of approximately 2 cm. There is edema at the tear. There is mild proximal longitudinal split tearing into the tendon. The peroneal tendons appear intact. There is mildly increased fluid in the peroneal tendon sheath. The flexor tendons are intact. The extensor tendons are intact. There is mild edema medial to the ankle. There is atrophy of the adductor digiti minimi, consistent with Allison's neuropathy. IMPRESSION: 1. Complete, mildly retracted tear of the distal right Achilles tendon. 2. The anterior talofibular ligament appears chronically torn. 3. Mild peroneal tenosynovitis. 4. Pes cavus appearance with mild degenerative changes in the ankle. 5. Findings of Allison's neuropathy. Dictated by: Dictated on workstation # [id number]
== END ==
LOC: RAD 08:30
PROVIDERS: ATTEND Nurse Practitioner
DX: S86.011A Strain of right Achilles tendon, initial encounter (principal); S93.491A Sprain of other ligament of right ankle, initial encounter; M65.871 Other synovitis and tenosynovitis, right ankle and foot; G62.9 Polyneuropathy, unspecified; M19.071 Primary osteoarthritis, right ankle and foot
CPT/HCPCS: 73721

== ENCOUNTER → 2020-05-28 | Outpatient (CLI) | payer MEDICAID ==
--- NOTE | 2020-05-28 21:24 | Diagnostic Imaging Report ---
EXAM: Ultrasound left breast, limited. INDICATION: Left breast mass By history the patient has a long-standing palpable abnormality in the inferomedial aspect of the left breast. The diagnostic mammogram performed earlier today noted a sizable 2.5 cm calcification in this area. On this exam, that finding is again evident. I suspect this is related to a long-standing calcified fibroadenoma or perhaps a hematoma. The screening mammogram also noted a slight asymmetry in the upper outer aspect of the left breast. The ultrasound examination of this area shows no discrete solid or cystic mass. IMPRESSION: 1. There is a densely calcified nodule in the inferomedial aspect of the left breast corresponding to the patient's palpable abnormality. This finding is felt to be benign. 2. There is no abnormality in the upper outer aspect of the left breast to correspond with the asymmetry seen on the mammogram. 2. There is no evidence for a solid mass to suggest malignancy. ACR BI-RADS Category 2: Benign findings. Result letter will be mailed to the patient. Note: At least 10% of breast cancer is not imaged by mammography. Dictated by: Dictated on workstation # [id number]
--- NOTE | 2020-05-28 21:49 | Diagnostic Imaging Report ---
Digital mammogram, bilateral diagnostic. INDICATION: Left breast lump This study was compared to the prior exam of 05/18/2012. At this time, the patient does complain of a mass in the left breast. Reportedly, this mass has been there for a number of years. A marker was placed over the area of concern. In this region, there is a dense 1.4 x 2.2 cm parenchymal nodule lying just beneath the skin surface. This finding was also present on the prior exam and is most likely related to a benign process such as a calcified fibroadenoma. There is a small asymmetric density in the superior aspect of the left breast. The tomographic images failed to show any evidence for an abnormality in this region and this density does not seem as conspicuous on the compression views. Most likely is secondary to fibroglandular tissue. Even so, it may prove worthwhile to obtain an ultrasound examination of this area for further study. The palpable abnormality could also be further evaluated by ultrasound. The right breast is unchanged. IMPRESSION: 1. There is a dense calcified nodule in the area of the patient's palpable abnormality in the inferomedial aspect of the left breast. There is also a vague asymmetry in the upper aspect of the left breast. Ultrasound of these areas would be recommended for further study. 2. There is no abnormality of the right breast. ACR BI-RADS Category 0: Incomplete. (Needs additional imaging evaluation). Result letter will be mailed to the patient. Note: At least 10% of breast cancer is not imaged by mammography. Dictated by: Dictated on workstation # [id number]
== END ==
LOC: RAD 13:45
PROVIDERS: ATTEND Nurse Practitioner
DX: N63.20 Unspecified lump in the left breast, unspecified quadrant (principal); Z87.898 Personal history of other specified conditions
CPT/HCPCS: 76642; 77066; G0279; 77062

== ENCOUNTER 2020-12-02 19:56 | Emergency (ER) | payer MEDICAID ==
[~2020-12-02] VITALS: Ht 162.6 cm; Wt 86.2 kg
[2020-12-02 20:16] VITALS: BP 173/91
[2020-12-02] MEDS ORDERED: LIDOCAINE 1% INJ 20 ML 20 ML VIAL INJ ONE (20:30)
--- NOTE | 2020-12-02 20:30 | ED Integumentary General ---
General Stated Complaint: FEVER, CHILLS, BODY ACHE, PAIN IN LOWER BACK Source: patient History of Present Illness Date Seen by Provider: Dec 02, 2020 Time Seen by Provider: 20:18 Initial Comments Patient is a 45-year-old female who presents to the emergency department today with a chief complaint of feeling feverish having chills body aches and pain in her lower back. She attributes this to an abscess that is been developing on her buttock over the course of the last week. She states it has spread and become more tender and painful. Patient states that she has been taking care of her parents property and doing some lawnmowing sitting on her bottom. She states she had something similar to this about 15 years ago when she developed "MRSA". Patient states that she even has some discomfort in her groin. Patient complains of discomfort more to the left of the gluteal cleft. All other review of systems reviewed and negative except as stated above. Timing/Duration: week, getting worse Severity: moderate Possible Cause: other (Abscess) Associated Symptoms: fever, rash, other (Body aches) Allergies and Home Medications Allergies Coded Allergies: Penicillins (Unverified Allergy, Unknown, 04/11/14) clindamycin (Unverified Allergy, Unknown, 04/11/14) sulfamethoxazole (Unverified Allergy, Unknown, 09/26/16) tramadol (Unverified Allergy, Unknown, 09/26/16) trimethoprim (Unverified Allergy, Unknown, 09/26/16) Home Medications Duloxetine HCl 60 Mg Capsule.dr, 60 MG PO DAILY, (Reported) Hydrocodone/Ibuprofen 1 Each Tablet, 1 TAB PO PRN, (Reported) Meloxicam 7.5 Mg Tablet, 7.5 MG PO BID, (Reported) Naproxen 500 Mg Tablet, 500 MG PO BID Prescribed by: ADALBERTO SYLVESTER on 01/12/20 1800 Prednisone 20 Mg Tab, PO UD, (Reported) Pregabalin 75 Mg Capsule, 75 MG PO BID, (Reported) Patient Home Medication List Home Medication List Reviewed: Yes Review of Systems Review of Systems Constitutional: see HPI, chills, fever, malaise EENTM: no symptoms reported Respiratory: no symptoms reported Cardiovascular: no symptoms reported Gastrointestinal: no symptoms reported Genitourinary: no symptoms reported : No Musculoskeletal: back pain (Low back pain) Skin: rash, other (Abscess on buttock) All Other Systems Reviewed Negative Unless Noted: Yes Past Kcwyhhm-Efzqii-Nrvxdp Hx Patient Social History Type Used: Cigarettes 2nd Hand Smoke Exposure: Yes Recent Hopitalizations: No Seasonal Allergies Seasonal Allergies: No Past Medical History Surgeries: Yes (GANGLION CYST REMOVAL IN HAND) Section Respiratory: No Cardiac: No Neurological: No Reproductive Disorders: No Gastrointestinal: No Musculoskeletal: Yes Fibromyalgia Endocrine: No Cancer: No Psychosocial: No Integumentary: No Blood Disorders: No Adverse Reaction/Blood Tranf: No Physical Exam Vital Signs Capillary Refill : General Appearance: WD/WN, no apparent distress Cardiovascular: regular rate, rhythm Respiratory: no respiratory distress, no accessory muscle use Gastrointestinal: non tender, soft Extremities: normal range of motion, non-tender, normal inspection, no pedal edema Neurologic/Psychiatric: alert, normal mood/affect, oriented x 3 Skin: normal color, warm/dry Skin Problem Location: other (Patient has an area of erythema at the top of the left buttock that spreads medially to the gluteal cleft where she has an abscess at almost the apex of the gluteal cleft that is approximately 2 cm in diameter and quite fluctuant. It is very tender to palpation.) Skin Problem Character: abscess Procedures/Interventions I&D : Site: left buttock Blade Size: 11 I & D Procedure: betadine prep, Wound Packing Packing/Drain: Plain Packing 1/2 (Plain packing quarter-inch placed) Progress After the wound was prepped and cleaned with chlorhexidine 1% lidocaine 5 cc was injected into the abscess. There was copious amounts of pus returned. Wound was aggressively irrigated. Quarter-inch packing was placed. Patient tolerated the procedure well. She did get significant relief of symptoms after the abscess was incised and drained. Progress/Results/Core Measures Results/Orders My Orders Orders - JESSENIA CAREY MD Wound Culture (12/02/20 20:24) Lidocaine 1% Inj 20 Ml (Xylocaine 1% Inj (12/02/20 20:30) Levofloxacin Tablet (Levaquin Tablet) (12/02/20 21:00) Rx-Hydrocodone/Apap 5-325 Mg (Rx-Vicodin (12/02/20 21:00) Medications Given in ED Current Medications Medications Dose Ordered Sig/Ana María Route Start Time Stop Time Status Last Admin Dose Admin Lidocaine HCl 20 ml ONCE ONCE INJ 12/02/20 20:30 12/02/20 20:31 DC 12/02/20 20:29 20 ML Progress Progress Note : Time: 20:56 Progress Note Patient states with her last abscess about 15 years ago she was given Levaquin. She has allergic reactions to penicillin antibiotics, clindamycin, Bactrim. We will try the Levaquin. A wound culture was obtained. I have advised her to have very close follow-up with [facility]. She verbalized understanding. The wound will likely need to be repacked in 48 hours. She is encouraged to shower/bathe as normal. She is given her first dose of Levaquin here in the emergency department. She is given a take-home pack of hydrocodone. Patient is stable for discharge. All questions have been sought and answered. Departure Impression Primary Impression: Abscess, gluteal, left Additional Impression: Cellulitis Qualified Codes: L03.317 - Cellulitis of buttock Disposition: 01 HOME, SELF-CARE Condition: Stable Departure-Patient Inst. Decision time for Depature: 20:28 Referrals: HUBER MARLEY MD (PCP/Family) Primary Care Physician Patient Instructions: Abscess Incision and Drainage Add. Discharge Instructions: Keep the area clean dry and covered. The packing will need to be removed in 48 hours and possibly replaced. You can definitely wash this area with soap and water. Take the antibiotics daily for the next 10 days. Follow-up with your primary care provider. Return to the emergency room for any worsening symptoms of pain, fever, nausea vomiting or any other emergent concerns. Scripts Hydrocodone/Acetaminophen (Hydrocodone-Acetamin 5-325 mg) 1 Each Tablet 1 TAB PO Q6H PRN for PAIN-MODERATE (5-7), #20 TAB Prov: JESSENIA CAREY MD 12/02/20 Levofloxacin (Levofloxacin) 500 Mg Tablet 500 MG PO DAILY for 10 Days, #10 TAB Prov: JESSENIA CAREY MD 12/02/20 JESSENIA CAREY MD Dec 02, 2020 20:30
[2020-12-02] MEDS ORDERED: LEVO500T80 PO (20:58)
[2020-12-02] MEDS ORDERED: ACHD5005 PO (20:58)
== END 2020-12-02 21:03 | disposition home or self-care (01) ==
LOC: EDUNIT# 19:56 → ER 19:59
DX: L02.31 Cutaneous abscess of buttock (principal); L03.317 Cellulitis of buttock; Z77.22 Contact with and (suspected) exposure to environmental tobacco smoke (acute) (chronic); Z79.52 Long term (current) use of systemic steroids
CPT/HCPCS: 10061; 87070; 87077; 87205

== ENCOUNTER 2021-03-15 09:07 | Emergency (ER) | payer MEDICAID ==
[~2021-03-15] VITALS: Ht 162.5 cm; Wt 82.5 kg
[~2021-03-15 09:07] MED LIST changes: +ACHD5005 PO; +LEVO500T80 PO
[2021-03-15] MEDS ORDERED: LABETALOL HCL 20 MG/4 ML VIAL IV ONE (09:30)
[2021-03-15 09:45] LABS: BASOPHILS # (AUTO) 0.1 10^3/uL (0.0-0.1); BASOPHILS % (AUTO) 1 % (0-10); EOSINOPHILS # (AUTO) 1.3 10^3/uL (0.0-0.3); EOSINOPHILS % (AUTO) 18 % (0-10); HEMATOCRIT 40 % (35-52); HEMOGLOBIN 13.7 g/dL (11.5-16.0); LYMPHOCYTES # (AUTO) 1.5 10^3/uL (1.0-4.0); LYMPHOCYTES % (AUTO) 21 % (12-44); MEAN CORPUSCULAR HEMOGLOBIN 35 pg (25-34); MEAN CORPUSCULAR HGB CONC 35 g/dL (32-36); MEAN CORPUSCULAR VOLUME 101 fL (80-99); MEAN PLATELET VOLUME 9.3 fL (9.0-12.2); MONOCYTES # (AUTO) 0.3 10^3/uL (0.0-1.0); MONOCYTES % (AUTO) 5 % (0-12); NEUTROPHILS # (AUTO) 3.9 10^3/uL (1.8-7.8); NEUTROPHILS % (AUTO) 55 % (42-75); PLATELET COUNT 263 10^3/uL (130-400); WHITE BLOOD COUNT 7.1 10^3/uL (4.3-11.0)
[2021-03-15 09:59] LABS: ALBUMIN 4.2 GM/DL (3.2-4.5); CHLORIDE 107 MMOL/L (98-107); SODIUM 140 MMOL/L (135-145)
[2021-03-15 10:00] LABS: CALCIUM 9.5 MG/DL (8.5-10.1)
[2021-03-15 10:01] LABS: GLUCOSE 91 MG/DL (70-105); TOTAL PROTEIN 7.1 GM/DL (6.4-8.2)
[2021-03-15 10:03] LABS: BILIRUBIN,TOTAL 0.4 MG/DL (0.1-1.0); CARBON DIOXIDE 24 MMOL/L (21-32)
[2021-03-15 10:05] LABS: ALKALINE PHOSPHATASE 63 U/L (40-136); GFR ESTIMATED 78
[2021-03-15 10:06] LABS: BUN/CREATININE RATIO 14
[2021-03-15 10:08] LABS: ALANINE AMINOTRANSFERASE 15 U/L (0-55)
--- NOTE | 2021-03-15 10:26 | ED Chest Pain ---
General Chief Complaint: Cardiac/General Problems Stated Complaint: HIGH BP Nursing Triage Note: PT AMB TO RM 4 WITH COMPLAINT OF HIGH BLOOD PRESSURE, DYE, DIZZINESS. STATES BP HAS BEEN HIGH FOR ABOUT A MONTH. W[facility] ON THURSDAY AND HAD LISINIPRIL INCREASED FROM 10MG TO 20 MG. STATES WENT BACK TO TODAY AND WAS INSTRUCTED TO COME OUT TO ER. PT STATES SHE QUIT DRINKING ENERGY DRINKS LAST WEEK. Source: patient Exam Limitations: no limitations History of Present Illness Date Seen by Provider: Mar 15, 2021 Time Seen by Provider: 09:58 Initial Comments Patient to the ER by private conveyance with chief complaint of chest pain in her right chest 3 out of 10 with some tingling down her right arm and high blood pressure. She been dealing with a high blood pressure for about a year. She recently was raised from 10 mg lisinopril to 20 mg by Kayla remy at [facility]. She does not have hyperlipidemia diabetes. She intends to quit smoking today. She does not have a personal history of coronary disease. She also has a headache which she has associated with her high blood pressure spikes. She says it has been elevated above 200/110 for the past week. Allergies and Home Medications Allergies Coded Allergies: Penicillins (Unverified Allergy, Unknown, 04/11/14) clindamycin (Unverified Allergy, Unknown, 04/11/14) sulfamethoxazole (Unverified Allergy, Unknown, 09/26/16) tramadol (Unverified Allergy, Unknown, 09/26/16) trimethoprim (Unverified Allergy, Unknown, 09/26/16) Patient Home Medication List Home Medication List Reviewed: Yes Duloxetine HCl (Cymbalta) 60 Mg Capsule.dr, 60 MG PO DAILY, (Reported) Entered as Reported by: DIONISIO GODINEZ on 09/26/16 2249 Hydrochlorothiazide (Hydrochlorothiazide) 25 Mg Tablet, 12.5 MG PO DAILY Prescribed by: MYRIAM MAYA on 03/15/21 1250 Hydrocodone/Acetaminophen (Hydrocodone-Acetamin 5-325 mg) 1 Each Tablet, 1 TAB PO Q6H PRN for PAIN-MODERATE (5-7) Prescribed by: JESSENIA CAREY on 12/02/202057 Hydrocodone/Ibuprofen (Hydrocodone-Ibuprofen 7.5-200) 1 Each Tablet, 1 TAB PO PRN, (Reported) Entered as Reported by: DIONISIO GODINEZ on 09/26/162248 Levofloxacin (Levofloxacin) 500 Mg Tablet, 500 MG PO DAILY Prescribed by: JESSENIA CAREY on 12/02/202057 Meloxicam (Meloxicam) 7.5 Mg Tablet, 7.5 MG PO BID, (Reported) Entered as Reported by: DIONISIO GODINEZ on 09/26/162248 Naproxen (Naprosyn) 500 Mg Tablet, 500 MG PO BID Prescribed by: ADALBERTO SYLVESTER on 01/12/201799 Prednisone (Prednisone) 20 Mg Tab, PO UD, (Reported) Entered as Reported by: DIONISIO GODINEZ on 09/26/162248 Pregabalin (Lyrica) 75 Mg Capsule, 75 MG PO BID, (Reported) Entered as Reported by: DIONISIO GODINEZ on 09/26/162248 Review of Systems Review of Systems Constitutional: No chills, No diaphoresis EENTM: No Blurred Vision, No Double Vision Respiratory: Denies Cough, Denies Orthopnea Cardiovascular: Chest Pain; Denies Lightheadedness Gastrointestinal: Denies Abdominal Pain, Denies Constipated, Denies Diarrhea, Denies Nausea Genitourinary: Denies Burning, Denies Discharge Musculoskeletal: No back pain, No joint pain Skin: No pruritus, No rash All Other Systems Reviewed Negative Unless Noted: Yes Past Urbsttu-Yawqon-Qlprop Hx Patient Social History Tobacco Use?: Yes Tobacco type used: Cigarettes Smoking Status: Current Everyday Smoker Use of E-Cig and/or Vaping dev: No Substance use?: No Alcohol Use?: No Pt feels they are or have been: No Immunizations Up To Date First/Initial COVID19 Vaccinat: HAS COMPLETED 2 VACCINE DOSES Second COVID19 Vaccination Naldo: HAS COMPLETED 2 VACCINE DOSES Seasonal Allergies Seasonal Allergies: No Past Medical History Surgeries: Yes (GANGLION CYST REMOVAL IN HAND) Section Respiratory: No Cardiac: Yes Hypertension Neurological: No Reproductive Disorders: No Gastrointestinal: No Musculoskeletal: Yes Fibromyalgia Endocrine: No Cancer: No Psychosocial: No Integumentary: No Blood Disorders: No Adverse Reaction/Blood Tranf: No Physical Exam Vital Signs Vital Signs - First Documented 03/15/21 09:11 Pulse 77 Resp 25 B/P (MAP) 210/134 (159) Pulse Ox 99 O2 Delivery Room Air Capillary Refill : Less Than 3 Seconds Height, Weight, BMI Height: 5'5.00" Weight: 280lbs. oz. 127.850761cx; 31.00 BMI Method:Stated General Appearance: WD/WN, Anxious HEENT: PERRL/EOMI, Pharynx Normal, Moist Mucous Membranes Neck: Full Range of Motion, Normal Inspection Respiratory: Chest Non Tender, Lungs Clear, Normal Breath Sounds, No Accessory Muscle Use, No Respiratory Distress Cardiovascular: Regular Rate, Rhythm, No Edema, Normal Peripheral Pulses Gastrointestinal: Normal Bowel Sounds, Non Tender, Soft Extremity: Normal Capillary Refill, Normal Inspection, No Pedal Edema Neurologic/Psychiatric: Alert, Oriented x3 Skin: Normal Color, Warm/Dry Progress/Results/Core Measures Results/Orders Lab Results Laboratory Tests Test 03/15/21 09:35 03/15/21 11:29 Range/Units White Blood Count 7.1 4.3-11.0 10^3/uL Red Blood Count 3.93 3.80-5.11 10^6/uL Hemoglobin 13.7 11.5-16.0 g/dL Hematocrit 40 35-52 % Mean Corpuscular Volume 101 H 80-99 fL Mean Corpuscular Hemoglobin 35 H 25-34 pg Mean Corpuscular Hemoglobin Concent 35 32-36 g/dL Red Cell Distribution Width 12.9 10.0-14.5 % Platelet Count 263 130-400 10^3/uL Mean Platelet Volume 9.3 9.0-12.2 fL Immature Granulocyte % (Auto) 0 % Neutrophils (%) (Auto) 55 42-75 % Lymphocytes (%) (Auto) 21 12-44 % Monocytes (%) (Auto) 5 0-12 % Eosinophils (%) (Auto) 18 H 0-10 % Basophils (%) (Auto) 1 0-10 % Neutrophils # (Auto) 3.9 1.8-7.8 10^3/uL Lymphocytes # (Auto) 1.5 1.0-4.0 10^3/uL Monocytes # (Auto) 0.3 0.0-1.0 10^3/uL Eosinophils # (Auto) 1.3 H 0.0-0.3 10^3/uL Basophils # (Auto) 0.1 0.0-0.1 10^3/uL Immature Granulocyte # (Auto) 0.0 0.0-0.1 10^3/uL Neutrophils % (Manual) 60 % Lymphocytes % (Manual) 24 % Monocytes % (Manual) 1 % Eosinophils % (Manual) 15 % Basophils % (Manual) 0 % Band Neutrophils 0 % Blood Morphology Comment NORMAL Sodium Level 140 135-145 MMOL/L Potassium Level 4.0 3.6-5.0 MMOL/L Chloride Level 107 98-107 MMOL/L Carbon Dioxide Level 24 21-32 MMOL/L Anion Gap 9 5-14 MMOL/L Blood Urea Nitrogen 11 7-18 MG/DL Creatinine 0.80 0.60-1.30 MG/DL Estimat Glomerular Filtration Rate 78 BUN/Creatinine Ratio 14 Glucose Level 91 70-105 MG/DL Calcium Level 9.5 8.5-10.1 MG/DL Corrected Calcium 9.3 8.5-10.1 MG/DL Total Bilirubin 0.4 0.1-1.0 MG/DL Aspartate Amino Transf (AST/SGOT) 15 5-34 U/L Alanine Aminotransferase (ALT/SGPT) 15 0-55 U/L Alkaline Phosphatase 63 40-136 U/L Troponin I < 0.028 < 0.028 <0.028 NG/ML Total Protein 7.1 6.4-8.2 GM/DL Albumin 4.2 3.2-4.5 GM/DL My Orders Orders - MYRIAM MAYA Labetalol Injection (Normodyne Injection (03/15/21 09:30) Hydrochlorothiazide Cap/Tablet (Hctz Cap (03/15/21 09:30) Ekg Tracing (03/15/21 09:25) Continuous Ekg Monitoring (03/15/21 09:25) Cbc With Automated Diff (03/15/21 09:25) Comprehensive Metabolic Panel (03/15/21 09:25) Troponin I (03/15/21 09:25) Manual Differential (03/15/21 09:35) Aspirin Enteric Coated Tablet (Ecotrin T (03/15/21 10:30) Nitroglycerin 0.4 Mg Btl 25's (Nitrostat (03/15/21 11:00) Aspirin Chewable Tablet (Baby Aspirin Ch (03/15/21 10:58) Ketorolac Injection (Toradol Injection) (03/15/21 11:30) Troponin I (03/15/21 11:20) Chest 1 View, Ap/Pa Only (03/15/21 12:25) Medications Given in ED Current Medications Medications Dose Ordered Sig/Ana María Route Start Time Stop Time Status Last Admin Dose Admin Aspirin 81 mg STK-MED ONCE .ROUTE 03/15/21 10:58 03/15/21 11:02 DC 03/15/21 11:01 324 MG Hydrochlorothiazide 25 mg ONCE ONCE PO 03/15/21 09:30 03/15/21 09:31 DC 03/15/21 10:25 25 MG Ketorolac Tromethamine 30 mg ONCE ONCE IVP 03/15/21 11:30 03/15/21 11:31 DC 03/15/21 11:25 30 MG Labetalol HCl 10 mg ONCE ONCE IV 03/15/21 09:30 03/15/21 09:31 DC 03/15/21 09:37 10 MG Nitroglycerin 0.4 mg NEEDED PRN SL 03/15/21 11:00 03/15/21 12:58 DC 03/15/21 11:01 0.4 MG Vital Signs/I&O 03/15/21 03/15/21 09:11 12:58 Pulse 77 72 Resp 25 19 B/P (MAP) 210/134 (159) 170/104 Pulse Ox 99 97 O2 Delivery Room Air Room Air Blood Pressure Mean: 159 Progress Progress Note : Time: 11:22 Progress Note Marginal atypical sounding chest pain that really did not seem to gain much improvement with the nitroglycerin. Labetalol did bring her blood pressure down significantly to 160/110 which is all further we want to push it today. We will start her on some hydrochlorothiazide and have her follow-up in a week or so with her primary care doctor for blood pressure management. We will also give her a referral outpatient to cardiology, Dr. Bertrand. Delta troponin at this time. If it is negative we will send her home. Because she is having a migraine headache we will also give her a little Toradol IV. 1 points HEART Pathway Score. Low risk; 0.9-1.7% 30-day MACE. Repeat troponin at 2 hours and if negative, discharge home with outpatient follow-up. Initial ECG Impression Date: Mar 15, 2021 Initial ECG Impression Time: 09:25 Initial ECG Rate: 71 Initial ECG Rhythm: Normal Sinus Initial ECG Intervals: Normal Initial ECG Impression: Normal Comment Normal sinus rhythm without clinically relevant changes. Diagnostic Imaging Diagonstic Imaging: Xray Plain Films/CT/US/NM/MRI: chest Comments No acute cardiopulmonary process on 1 view chest x-ray. [facility], [place] NAME: CARLA CONRAD [facility] REC#: [id number] PT STATUS: REG ER : 1975 PHYSICIAN: MYRIAM MAYA MD ADMIT DATE: 03/15/21/ER Draft Date of Exam:03/15/21 CHEST 1 VIEW, AP/PA ONLY CLINICAL INDICATION: Patient complains of high blood pressure, headache, and dizziness. EXAM: Portable chest x-ray, upright view. COMPARISONS: Chest x-ray dated 07/03/2017. FINDINGS: Lungs/pleura: Lungs are clear. There is no pneumothorax. There is no pleural effusion. Mediastinum: Unremarkable. Pulmonary vasculature: Unremarkable. Heart: Unremarkable. Bones/extrathoracic soft tissue: There are mildly hypertrophic spurs involving the spine. IMPRESSION: There is no radiographic evidence of acute cardiopulmonary process. Dictated on workstation # [id number] Dict: 03/15/21 1252 Trans: 03/15/21 1254 [id number] Interpreted by: KITA CRAWLEY MD Electronically signed by: Departure Impression Primary Impression: Accelerated hypertension Additional Impressions: Chest pain Qualified Codes: R07.9 - Chest pain, unspecified Headache Qualified Codes: G44.209 - Tension-type headache, unspecified, not intractable Disposition: 01 HOME, SELF-CARE Condition: Stable Departure-Patient Inst. Decision time for Depature: 12:44 Referrals: [facility]/ (PCP) Primary Care Physician PRETTY CLAYTON APRN (Family) Primary Care Physician JOSE JUAN BERTRAND MD FACP [facility] Patient Instructions: High Blood Pressure ED, Chest Pain (DC) Add. 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 Follow-up with your primary care doctor in the 1 to 2 weeks for repeat labs and if everything is okay then you can discuss whether you need to take a full tablet of hydrochlorothiazide daily. Call Dr. Bertrand, cardiology and request follow-up outpatient in the next couple weeks for your chest pain and high blood pressure. All discharge instructions reviewed with patient and/or family. Voiced understanding. Scripts Hydrochlorothiazide (Hydrochlorothiazide) 25 Mg Tablet 12.5 MG PO DAILY for 14 Days, #14 TAB 0 Refills Half tablet daily for 1 week then 1 tablet daily Prov: MYRIAM MAYA 03/15/21 Work/School Note: Work Release Form Date Seen in the Emergency Department: Mar 15, 2021 Return to Work: Mar 16, 2021 Restrictions: No Restrictions Copy Copies To 1: JOSE JUAN BERTRAND MD [facility] MYRIAM MAYA Mar 15, 2021 10:26
[2021-03-15] MEDS ORDERED: ASPIRIN E.C. 81 MG (ECOTRIN) TAB PO ONE (10:30)
[2021-03-15 10:35] LABS: BAND NEUTROPHILS 0 %; BASOPHILS % (MANUAL) 0 %; EOSINOPHILS % (MANUAL) 15 %; LYMPHOCYTES % (MANUAL) 24 %; MONOCYTES % (MANUAL) 1 %; NEUTROPHILS % (MANUAL) 60 %
[2021-03-15 10:36] LABS: RBC MORPH NORMAL
[2021-03-15] MEDS ORDERED: ASPIRIN 81 MG CHEW (CHILDREN'S ASA) ONE (10:58)
[2021-03-15] MEDS ORDERED: NITROGLYCERIN 0.4 MG SL TABS BTL 25'S SL PRN (11:00)
[2021-03-15] MEDS ORDERED: KETOROLAC 30 MG/ML VIAL IVP ONE (11:30)
[2021-03-15] MEDS ORDERED: LACTATED RINGERS 1,000 ML IV SCH (11:30)
[2021-03-15] MEDS ORDERED: HYDR25TA4 PO (12:50)
--- NOTE | 2021-03-15 12:55 | Diagnostic Imaging Report ---
CLINICAL INDICATION: Patient complains of high blood pressure, headache, and dizziness. EXAM: Portable chest x-ray, upright view. COMPARISONS: Chest x-ray dated 07/03/2017. FINDINGS: Lungs/pleura: Lungs are clear. There is no pneumothorax. There is no pleural effusion. Mediastinum: Unremarkable. Pulmonary vasculature: Unremarkable. Heart: Unremarkable. Bones/extrathoracic soft tissue: There are mildly hypertrophic spurs involving the spine. IMPRESSION: There is no radiographic evidence of acute cardiopulmonary process. Dictated by: Dictated on workstation # [id number]
[2021-03-15 12:58] VITALS: BP 170/104
== END 2021-03-15 12:58 | disposition home or self-care (01) ==
LOC: EDUNIT# 09:07 → ER 09:08
DX: I10 Essential (primary) hypertension (principal); R07.9 Chest pain, unspecified; R51.9 Headache, unspecified; F17.210 Nicotine dependence, cigarettes, uncomplicated; Z79.899 Other long term (current) drug therapy; Z79.52 Long term (current) use of systemic steroids
CPT/HCPCS: 36415; 71045; 80053; 84484; 85007; 85027; 93005